=== PATIENT | female | born 1955 | race Caucasian/White ===

== ENCOUNTER 2022-05-12 16:00 | Inpatient (IN) | payer OTHER, SELFPAY ==
[2022-05-12] VITALS (8 sets, daily range): BP systolic 106–143; BP diastolic 48–88; PULSE 85–101; RESP 15–22; TEMP 36–36.8; O2SAT 96–100
--- NOTE | ~2022-05-12 | XR_ITS ---
XR retrograde pyelo w/stent BI 05/12/2022 22:01 Bilateral ureteral stent placement TECHNIQUE: Fluoroscopy used during bilateral ureteral stent placement performed by [Garrett mendoza MD] on 05/12/2022. 246 seconds of fluoroscopy. with 6 fluoroscopic images images captured. FINDINGS: Correlate with procedure note. IMPRESSION: Fluoroscopy used during bilateral ureteral stent placement. Reviewed, dictated and finalized at location A.
--- NOTE | ~2022-05-12 | XR_ITS ---
XR abdomen/kub 1V 05/14/2022 13:40 Indication: Surgical planning. Bilateral kidney stones. Procedure: KUB Comparison: CT dated 05/12/2022 Findings: Bowel gas pattern is nonobstructive. There are bilateral renal stones, largest in the right kidney measuringr 1.9 cm greatest dimension. Bowel gas pattern nonobstructive. There are surgical ch anges of the upper abdomen. There is lumbar spondylosis with levoscoliosis. Impression: 1: Bilateral nephrolithiasis. Reviewed, dictated and finalized at location A. Impression: 1: Bilateral nephrolithiasis.
--- NOTE | ~2022-05-12 | CT_ITS ---
EXAMINATION: CT abdomen pelvis wo con DATE: 05/12/2022 18:21 INDICATION: Left abdominal pain TECHNIQUE: Computed tomography (CT) of the abdomen and pelvis was performed without intravenous contr ast. Automated exposure control and iterative reconstruction technique were employed. The dose-length product was 1305.31 mGy-cm. COMPARISON: None. FINDINGS: Lower thorax: Bibasilar scar/atelectasis Liver: Enlarged Biliary/Gallbladder: Gallbladder is absent. No bile duct dilation. Pancreas: No mass or duct dilation. Spleen: Normal. Adrenals:No mass. Kidneys: 2.4 x 1.5 cm right and 1.3 x 0.9 cm left renal pelvic stones. Bilateral moderate caliectasis , slightly worse in the left. Bilateral perinephric stranding, worse in the left. Bilateral nonobstru cting punctate calculi. Nonobstructing 10 mm right inferior pole stone. GI tract: Prior gastric surgery. Uncomplicated small bowel anastomosis. No small or large bowel dilat ion. Normal appendix. Mesentery/Peritoneum: No ascites, mass, or free air. Retroperitoneum: No mass. Enlarged left periaortic lymph nodes at the level of the left kidney. Ather osclerotic abdominal aortic and/or arterial calcifications. Pelvis: 3.2 cm simple appearing right ovarian cyst. Small ureterocele. Soft Tissues: Wide mouthed large midline supraumbilical ventral hernia containing loops of nonobstruc eduardo large and small bowel. Bones: No acute osseous finding. IMPRESSION: Bilateral large renal pelvic stones causing mild left and moderate right obstructive uropathy. Left p eriaortic lymphadenopathy. 3.2 simple appearing right ovarian cyst, recommend nonemergent outpatient pelvic ultrasound for further characterization and follow-up. Reviewed, dictated and finalized at location K. IMPRESSION: Bilateral large renal pelvic stones causing mild left and moderate right obstru ctive uropathy. Left periaortic lymphadenopathy. 3.2 simple appearing right ova eliseo cyst, recommend nonemergent outpatient pelvic ultrasound for further syeda cterization and follow-up.
--- NOTE | 2022-05-12 16:49 | ED.ABDPAIN ---
HPI - Abdominal Pain General Chief Complaint: Abdominal Pain Stated Complaint: abdominal pain, nausea/pain/diarrhea Time Seen by Provider: 05/12/22 16:49 Source: patient, family and RN notes reviewed Mode of arrival: ambulatory Limitations: no limitations History of Present Illness HPI narrative: A 67 years old white female came to the emergency room by private car complaining of nausea, vomiting or diarrhea for the last 5 main complaint is nausea. Patient is fully vaccinated for COVID-19, denies COVID exposure. History of PCOS, hypertension, multiple abdominal surgeries secondary to herniaS, and cholecystectomy Related Data Allergies Allergy/AdvReac Type Severity Reaction Status Date / Time iohexol Allergy Unknown Verified 05/12/22 17:09 [From contrast - CT, X-RAY] latex Allergy Hives Verified 05/12/22 17:09 lavender (Lavandula Allergy Difficulty Verified 05/12/22 17:09 angustifolia) Breathing meperidine [From Demerol] Allergy Hallucinati Verified 05/12/22 17:09 ng methocarbamol [From Robaxin] Allergy Hallucinati Verified 05/12/22 17:09 ng naproxen Allergy Abdominal Verified 05/12/22 17:09 Pain warfarin [From Coumadin] Allergy Hives Verified 05/12/22 17:09 Review of Systems Review of Systems: All systems reviewed & are unremarkable except as noted in HPI and below Exam Narrative: General appearance: Well-developed, well-nourished Skin: Normal color Head: Normocephalic, nontraumatic Eyes: Clear conjunctiva ENT: Oropharynx normal, ears normal, nose normal Neck: Supple, nontender Chest and respiratory: Airway patent, no respiratory distress, no accessory muscle use Heart: Regular rate/rhythm Abdomen: Soft, nontender, no organomegaly, quiet bowel sounds Vascular: Normal peripheral pulses, normal capillary refill. 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 is normal as tested, no gross motor deficit Course Consultations Consultation #1: DR YORK Admit to hospitalist, n.p.o., Date: 05/12/22 Time: 19:24 Vital Signs Vital signs: Vital Signs Temperature 36.8 C 05/12/22 16:12 Pulse Rate 97 05/12/22 16:12 Respiratory Rate 17 05/12/22 16:12 Blood Pressure 126/55 L 05/12/22 16:12 Pulse Oximetry 96 05/12/22 16:12 Oxygen Delivery Room Air 05/12/22 16:12 Temperature 36.8 C 05/12/22 16:12 Pulse Rate 97 05/12/22 16:12 Respiratory Rate 17 05/12/22 16:12 Blood Pressure 126/55 L 05/12/22 16:12 Pulse Oximetry 96 05/12/22 16:12 Oxygen Delivery Room Air 05/12/22 16:12 MDM - Abdominal Pain Lab Data Result diagrams: 05/12/22 17:16 05/12/22 17:17 Labs: Lab Results 05/12/22 05/12/22 05/12/22 Range/Units 17:16 17:17 17:17 WBC 8.0 (4.5-10.0) K/mm3 RBC 4.94 (4.2-5.4) M/mm3 Hgb 13.0 (12.0-15.0) g/dL Hct 39.5 (37.0-47.0) % MCV 80.0 (80-100) fl MCH 26.3 (26-34) pg MCHC 32.9 (32-36) g/dl RDW 14.2 (11.5-14.5) % Plt Count 215 (150-375) k/mm3 MPV 11.9 H (7.4-10.4) fl Immature Gran % (Auto) 0.4 (0-0.5) % Neut % (Auto) 72.2 (45.5-73.1) % Lymph % (Auto) 16.2 L (18.3-44.2) % [place] % (Auto) 10.2 H (2.6-8.5) % Eos % (Auto) 0.5 (0-4.4) % Baso % (Auto) 0.5 (0.2-1.2) % Lymph # (Auto) 1.30 (0.9-3.2) K/mm3 [place] # (Auto) 0.8 H (0.1-0.6) K/mm3 Eos # (Auto) 0.0 (0-0.3) K/mm3 Baso # (Auto) 0.0 (0.0-0.1) K/mm3 Abs Immat Gran (auto) 0.03 (0.00-0.031) K/mm3 Absolute Neuts (auto) 5.8 (1.3-6.7) K/mm3 Absolute Nucleated RBC 0.0 (0.0-0.012) K/mm3 Nucleated RBC % 0.0 (0.0-0.2) % Sodium 136 L (1
[2022-05-12] MEDS: SODIUM CHLORIDE 0.9% IV 1,000 ML 999 ML IV CONT ×2 (17:03→19:30)
[2022-05-12] MEDS: HYDROmorphone HCL INJ (*CRX) 1 MG/ML SYR 0.5 MG IV PUSH ×2 (17:03→23:53)
[2022-05-12] MEDS: ONDANSETRON INJ 4 MG/2 ML VIAL IV PUSH (17:04)
[2022-05-12 17:37] LABS: Basophils Percent Auto 0.5 % (0.2-1.2); Eosinophils Percent Auto 0.5 % (0-4.4); Hematocrit 39.5 % (37.0-47.0); Immature Granulocyte Absolute 0.03 K/mm3 (0.00-0.031); Immature Granulocyte Percent A 0.4 % (0-0.5); Lymphocytes Percent Auto 16.2 % (18.3-44.2); Mean Corpuscular HGB Conc 32.9 g/dl (32-36); Mean Corpuscular Hemoglobin 26.3 pg (26-34); Mean Platelet Volume 11.9 fl (7.4-10.4); Monocytes Absolute Auto 0.8 K/mm3 (0.1-0.6); Monocytes Percent Auto 10.2 % (2.6-8.5); Neutrophils Absolute Auto 5.8 K/mm3 (1.3-6.7); Neutrophils Percent Auto 72.2 % (45.5-73.1); Platelet Count Result 215 k/mm3 (150-375); Red Blood Count 4.94 M/mm3 (4.2-5.4); Red Cell Distribution Width 14.2 % (11.5-14.5)
[2022-05-12 17:38] LABS: Appearance Urine Clear (Clear); Bilirubin Urine 1+ (Negative); Blood Urine 1+ (Negative); Color Urine Yellow (Yellow); Glucose Urine UA Negative (Negative); Ketones Urine 1+ mg/dL (Negative); Leukocyte Esterase Ur 3+ LEU/UL (Negative); Nitrate Urine Positive (Negative); Protein Urine 2+ mg/dL (Negative); Specific Grav Ur 1.015 (1.001-1.035); pH Urine 6.5 (5.0-9.0)
[2022-05-12 17:41] LABS: Alanine Aminotransferase 29 U/L (6-35); Albumin Level 4.2 g/dL (3.5-5.1); Alkaline Phosphatase 150 U/L (38-126); Anion Gap 12 mmol/L (8-16); Aspartate Amino Transferase 38 U/L (14-36); Bilirubin,Total 1.5 mg/dL (0.2-1.3); Blood Urea Nitrogen 18 mg/dL (7-17); Calcium 9.1 mg/dL (8.4-10.2); Carbon Dioxide 27 mmol/L (22-30); Chloride 97 mmol/L (98-107); Estimated CRCL calculation 38 ml/min; Estimated Glomerular Filt Rate 30; Glucose 125 mg/dL (65-110); Lipase 165 U/L (23-300); Potassium 3.3 mmol/L (3.4-5.0); Sodium 136 mmol/L (137-145)
[2022-05-12 17:51] LABS: Bacteria Urine 2+ /hpf; Mucus Urine Moderate /lpf; Squamous Epithelial Cell Urine Few /hpf (Few); WBC Urine >75 /hpf
[2022-05-12 17:53] LABS: Add Urine Microscopic? YES
--- NOTE | 2022-05-12 19:51 | PM.IMHP ---
H&P: HPI History of Present Illness Date/Time: 05/12/22 19:51 Chief Complaint: Abdominal pain, nausea and vomiting Narrative: 59-year-old female with a past medical history of obesity, distant history kidney stones, essential hypertension, chronic pain, depression, GERD who presented to the ER from home with nausea vomiting and abdominal pain for 6 days. The patient reports the pain initially started in her left lower quadrant and was colicky in nature. She did not notice any eliciting or relieving factors. It was associated with significant nausea and vomiting. Emesis was nonbilious without evidence of blood. She has had associated fever up to 101 with associated rigors and chills. She took ibuprofen without relief in her symptoms. She was able to keep down small amounts of popsicles and clear liquids. She stated on the 1st 2 days of her symptoms she did have some loose stools that were brown and nonbloody. She has not had any stools in the last 4 days. She also noticed some lower back pain but she attributed this to her chronic DJD. In hindsight, she thinks that her pain may have been worsened her low back than at baseline. She denies any dysuria. She has chronic urinary frequency due to a known history of a cystocele for the last 30 years. In the ER CT scan demonstrated bilateral obstructive nephrolithiasis with associated hydronephrosis and UA was consistent with urinary tract infection. She does report a distant history kidney stones greater than 40 years ago that she was able to pass on her own. She reports that her pain was a 9/10 in intensity at its worst. Her pain is down to 5/10 in intensity after cystoscopy with bilateral stent placement. During the procedure the patient was noted to have frankly purulent urine from the left kidney. Urine from the right kidney appeared clear. Both ureters were obstructed by stones. Patient maintained blood pressures throughout procedure. Postprocedure patient did spike a fever to 100.4. The patient is mildly tachycardic. Her nausea has improved. She has had no further vomiting. Patient is having rigors at the time of my exam. The patient has a large neck circumference crowded posterior oropharynx. She does snore but has never had a sleep study. She states that she could not tolerate a CPAP even if she did have sleep apnea. Review of Systems Review of Systems: 12 systems were reviewed with pertinent positives and negatives per HPI. Except as documented in the HPI, all other systems were reviewed and are negative. [facility] Past Medical History Medical History (Updated 05/13/22 @ 01:13 by Julia Jessica DO) B12 deficiency Chronic pain Cystocele with prolapse DJD (degenerative joint disease), lumbar DVT of lower extremity, bilateral At 29 years old Essential hypertension GERD (gastroesophageal reflux disease) Morbid obesity with BMI of 40.0-44.9, adult Multiple thyroid nodules PCOS (polycystic ovarian syndrome) Primary stress urinary incontinence Venous stasis dermatitis of right lower extremity Surgical History Surgical History (Updated 05/13/22 @ 00:59 by Julia Jessica DO) History of esophagogastroduodenoscopy (EGD) History of gastric bypass 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 due to recurrent electrolyte abnormality History of hernia repair Incisional hernia repair x3 History of incision and drainage Right anterior alarcon abscess following trauma History of tonsillectomy Hx of cholecystectomy Incarcerated incisional hernia With resultant bowel per friend bowel resection 2008 Family History Family History (Updated 05/13/22 @ 00:24 by Renetta Jhaveri RN) Sibling Non-Hodgkin lymphoma Mother Breast cancer Alzheimer disease Grandparent Diabetes mellitus Congestive heart failure Grandparent Diabetes mellitus Alzheimer disease Congestive heart failure Other Tanner's disease niece
--- NOTE | 2022-05-12 20:03 | PC.NURSE ---
HOUSE SUP ASKING FOR THE PT TO STAY IN ED UNTIL SEEN BY UROLOGIST. PT TO GO TO OR
--- NOTE | 2022-05-12 20:07 | WPDANESEPP ---
Anes - Eval Pre Procedure Date/Time: 05/12/22 20:07 Pre Op Diagnosis: Obstructive Uropathy,Pyelonephritis,Dehydration, Patient Data Age: 67 Gender: F Height: 1.68 m Weight: 122 kg Last Vital Signs Temp 36.8 C 05/12/22 16:12 Pulse 90 05/12/22 19:33 Resp 18 05/12/22 19:33 BP 136/88 05/12/22 19:33 Pulse Ox 98 05/12/22 19:33 O2 Del Method Room Air 05/12/22 16:12 Allergies Allergy/AdvReac Type Severity Reaction Status Date / Time iohexol Allergy Unknown Verified 05/12/22 17:09 [From contrast - CT, X-RAY] latex Allergy Hives Verified 05/12/22 17:09 lavender (Lavandula Allergy Difficulty Verified 05/12/22 17:09 angustifolia) Breathing meperidine [From Demerol] Allergy Hallucinati Verified 05/12/22 17:09 ng methocarbamol [From Robaxin] Allergy Hallucinati Verified 05/12/22 17:09 ng naproxen Allergy Abdominal Verified 05/12/22 17:09 Pain warfarin [From Coumadin] Allergy Hives Verified 05/12/22 17:09 Laboratory Tests 05/12/22 05/12/22 05/12/22 17:16 17:17 17:17 WBC 8.0 K/mm3 K/mm3 (4.5-10.0) RBC 4.94 M/mm3 M/mm3 (4.2-5.4) Hgb 13.0 g/dL g/dL (12.0-15.0) Hct 39.5 % % (37.0-47.0) MCV 80.0 fl fl (80-100) MCH 26.3 pg pg (26-34) MCHC 32.9 g/dl g/dl (32-36) RDW 14.2 % % (11.5-14.5) Plt Count 215 k/mm3 k/mm3 (150-375) MPV 11.9 fl H fl (7.4-10.4) Immature Gran % (Auto) 0.4 % % (0-0.5) Neut % (Auto) 72.2 % % (45.5-73.1) Lymph % (Auto) 16.2 % L % (18.3-44.2) [place] % (Auto) 10.2 % H % (2.6-8.5) Eos % (Auto) 0.5 % % (0-4.4) Baso % (Auto) 0.5 % % (0.2-1.2) Lymph # (Auto) 1.30 K/mm3 K/mm3 (0.9-3.2) [place] # (Auto) 0.8 K/mm3 H K/mm3 (0.1-0.6) Eos # (Auto) 0.0 K/mm3 K/mm3 (0-0.3) Baso # (Auto) 0.0 K/mm3 K/mm3 (0.0-0.1) Abs Immat Gran (auto) 0.03 K/mm3 K/mm3 (0.00-0.031) Absolute Neuts (auto) 5.8 K/mm3 K/mm3 (1.3-6.7) Absolute Nucleated RBC 0.0 K/mm3 K/mm3 (0.0-0.012) Nucleated RBC % 0.0 % % (0.0-0.2) Sodium 136 mmol/L L mmol/L (137-145) Potassium 3.3 mmol/L L mmol/L (3.4-5.0) Chloride 97 mmol/L L mmol/L (98-107) Carbon Dioxide 27 mmol/L mmol/L (22-30) Anion Gap 12 mmol/L mmol/L (8-16) BUN 18 mg/dL H mg/dL (7-17) Creatinine 1.70 mg/dL H mg/dL (0.7-1.0) Estim Creat Clear Calc 38 ml/min ml/min Estimated GFR 30 L (59 - ) Glucose 125 mg/dL H mg/dL (65-110) Calcium 9.1 mg/dL mg/dL (8.4-10.2) Total Bilirubin 1.5 mg/dL H mg/dL (0.2-1.3) AST 38 U/L H U/L (14-36) ALT 29 U/L U/L (6-35) Alkaline Phosphatase 150 U/L H U/L (38-126) Total Protein 9.0 g/dL H g/dL (6.3-8.2) Albumin 4.2 g/dL g/dL (3.5-5.1) Lipase 165 U/L U/L (23-300) Urine Color Yellow (Yellow) Urine Appearance Clear (Clear) Urine pH 6.5 (5.0-9.0) Ur Specific [place] 1.015 (1.001-1.035) Urine Protein 2+ mg/dL H mg/dL (Negative) Urine Glucose (UA) Negative mg/dL mg/dL (Negative) Urine Ketones 1+ mg/dL H mg/dL (Negative) Ur Blood (Man) 1+ H (Negative) Urine Nitrate Positive H (Negative) Urine Bilirubin 1+ H (Negative) Urine Urobilinogen 4.0 mg/dL H mg/dL (<2.0) Leukocyte Esterase Rfl 3+ ELVER/UL H ELVER/UL (Negative) Urine RBC 3-5 /hpf H /hpf (0-2) Urine WBC >75 /hpf H /hpf Ur Squamous Epith Cells Few /hpf /hpf (Few) Urine Bacteria 2+ /hpf H /hpf Urine Mucus Moderate /lpf H /lpf Patient hx anesthesia problems: none Family hx anesthesia problems:
--- NOTE | 2022-05-12 20:46 | WPDURCON ---
Assessment and Plan Assessment and plan (1) Acute kidney injury: Code(s): N17.9 - Acute kidney failure, unspecified Status: Acute (2) Urinary tract infection: Code(s): N39.0 - Urinary tract infection, site not specified Status: Acute (3) Acute bilateral obstructive uropathy: Code(s): N13.9 - Obstructive and reflux uropathy, unspecified Status: Acute (4) Bilateral kidney stones: Code(s): N20.0 - Calculus of kidney Status: Acute Plan bilateral renal pelvis UPJ stones with b/l hydro and elevated Cr and concern for UTI/Pyelo -plan for cysto, B/L RPG, b/l stent placement -risks, benefits, alternatives, nature of procedure and complication reviewed. -risks including but not limited to bleeding, infection, trauma to surrounding structures damage to urinary tract inability to place stents and need for PCN tubes by IR, side effects(urgency frequency stent bother)and temporary nature of stents emphasized, need for multiple procedures reviewed given stone burden further more we discussed anesthetic and positioning complications of CA, stroke blod clots, and disability were reviewed, she voiced understanding and is agreeable to proceed -agree with urine cultures and IV broad spectrum abx pending cultures -stone management when infection cleared Urology Consult Note HPI Date Seen: 05/12/22 Requesting Physician: Julia Jessica DO Primary Care Provider: PHYSICIAN NOT ON STAFF Consult Narrative Narrative: Ally Ayala is a 67 year old female with 1 week history of flank pain, came to ER today for nausea vomitting and left sided flank pain. No prior history of stones. Denies chills endorsed low grade fevers over the past 1 week. No gross hematuria or dysuria. Had CT with bilateral renal pelvis stones, ua with + leuks, nitrite and blood. risk factor for stones include Hx of bowel surgery . Denies recurrent UTI. [facility] Past Medical History Medical History Essential hypertension Morbid obesity with BMI of 40.0-44.9, adult PCOS (polycystic ovarian syndrome) Surgical History Surgical History History of hernia repair Hx of cholecystectomy Meds Home Medications and Allergies Allergies Allergy/AdvReac Type Severity Reaction Status Date / Time iohexol Allergy Unknown Verified 05/12/22 17:09 [From contrast - CT, X-RAY] latex Allergy Hives Verified 05/12/22 17:09 lavender (Lavandula Allergy Difficulty Verified 05/12/22 17:09 angustifolia) Breathing meperidine [From Demerol] Allergy Hallucinati Verified 05/12/22 17:09 ng methocarbamol [From Robaxin] Allergy Hallucinati Verified 05/12/22 17:09 ng naproxen Allergy Abdominal Verified 05/12/22 17:09 Pain warfarin [From Coumadin] Allergy Hives Verified 05/12/22 17:09 Vital Signs Vital Signs - 24 hr 05/12/22 16:12 05/12/22 19:33 Temperature 36.8 C Pulse Rate 97 90 Respiratory Rate 17 18 Blood Pressure 126/55 L 136/88 Pulse Oximetry 96 98 Oxygen Delivery Room Air Exam Const: General: comfortable and no acute distress Eyes: General: appearance normal, both eyes and all related structures Sclera: sclerae normal Neck: Neck: supple Resp: Effort & Inspection: normal respiratory effort Cardio: Rate: regular rate Rhythm: regular rhythm GI: GI Palp: Yes Soft to palpation, No Tenderness to palpation present (GI), No Guarding due to palpation present (GI) and Yes Hernia present : Other: mild b./ CVA TTP Skin: General skin exam: normal color and no rashes or lesions noted Neuro: Speech: normal speech Extrem: General: normal to inspection Psych: Speech and movement: Normal speech and movement present Affect: normal affect Results Labs CBC & Chem 7: 05/12/22 17:16 05/12/22 17:17 Labs: Short CBC 05/12/22 Range/
--- NOTE | 2022-05-12 21:00 | WPDHPUPDATE1 ---
History and Physical Update Update Date/Time: 05/12/22 21:00 History and Physical has been reviewed, including an updated exam of the patient. There are NO changes in the patient's condition. Risks, benefits, and alternatives have been discussed and questions answered. Patient agrees to proceed with procedure.
[2022-05-12] MEDS: LACTATED RINGERS 1,000 ML 30 ML IV CONT (21:05)
--- NOTE | 2022-05-12 21:10 | P.PNAN_ITS ---
Anes - Eval Final PreProcedure Day of Procedure 05/12/22 21:10 Patient weight: morbidly obese Heart: regular rate and rhythm Lungs: clear to auscultation Airway: Mallampati scale class II Neurological: alert and oriented Last oral intake: >/= 8 hours ASA classification: III Emergent: yes Anesthetic plan: proceed Anesthesia type and monitoring: general LMA and standard monitoring Results Review: All pre-operative results and documents have been reviewed as part of the pre- operative evaluation. Informed Consent: The patient's anesthetic plan and its attendant risks and benefits were discussed with the patient/family/POA. Questions were solicited and answers provided to the satisfaction of the patient/family/POA.
--- NOTE | 2022-05-12 21:18 | SUR.OPER ---
All jewelry and glasses removed by patient in ED and placed in labeled specimen cup in patient's personal belongings bag. Labeled personal belongings bag transported with patient to perioperative area
--- NOTE | 2022-05-12 21:48 | P.OP_ITS ---
Procedure Note - Detailed Date of Procedure 05/12/22 Pre-op Diagnosis Obstructive Uropathy,Pyelonephritis,Dehydration, Post-op Diagnosis Same Procedure Performed cystoscopy bilateral retrograde pyelograms, bilateral ureteral stent placement Surgeon Garrett Rico MD Anesthesia General Indications bilateral ureteral/UPJ/renal pelvis stones, hydroneprhosis Findings pyonephrosis left kidney massive cystocele Description of Procedure Patient had received informed consent, preprocedure antibiotics were given in ER, she received G LMA anesthesia. she was prepped and draped in the standard surgical fashion in dorsal lithotomy position with Betadine to the genitalia. care was taken to not hyperflex or hyperextend any extremity, all bony prominences thoroughly padded. After appropriate surgical time-out was per formed, a 22 Fr cystoscope was inserted into the bladder, she has a massive cystocele , the ureteral orifices were obscured given cystitis and massive cystocele, this added an additional 30 min to procedure. we eventually found the left uo and intubated it with a Bentson wire, 5 Fr open ended catheter was inserted up to the UPJ, RPG showed stone in the UPJ, Bentson wire was unable to pass the stone, a angle tipped glide wire was used to navigate past stone to upper pole, 5 Fr open ended passed over this to obtain urine, urine was grossly purulent, the stone was pushed cephalad, the Bentson wire was replaced and a 4.8 x 28 cm double J tent was placed, good curl int he renal pelvis and good curl in the bladder, purulent urine was draining. We then intubated the right ureter with Bentson wire. 5 Fr open ended was passed, RPG was performed which showed massive stone at UPJ, i was able to navigate an angle tipped glide wire into the upper pole past the stone, 5 Fr open ended passed over this, urine appeared clear form this kidney. Bentson wire was replaced and a 4.8 x 28 cm double J stent was placed. good curl seen both fluoroscopically and endoscopically in the bladder. All instruments and wires removed. 16 Fr silicone elizabeth was placed 10 cc in balloon with good return of urine. Pt awoken and taken to recovery in stable condition with plans for IMCU admission given pyonephrosis, pt and family informed, all ? answered Implants bilateral 4.8x28cm ureter stents Estimated Blood Loss 0 Drains Yes (16 Fr elizabeth) Pathology Other (urine for cultrue left kidney) Condition Stable (to IMCU given pyonephrosis) Disposition ICU
--- NOTE | 2022-05-12 23:00 | PC.NURSE ---
This patient, Ally Ayala, was admitted to IMU Room 209-01, received from recovery at 2259. Patient/family oriented to hospital policies and general routines including ID bracelet, bed and alarms, visiting hours, pain management, procedures, bathroom and other care routines, personal items, smoking policy, room service/diet, and visiting hours. Information on how to activate the Rapid Response Team has been discussed. Patient/Family are encouraged to report perceived risks to care and to ask questions if they do not understand what they are told or what they should do.
[2022-05-12] MEDS: SODIUM CHLORIDE 0.9% IV 1,000 ML 125 ML IV CONT (23:14)
[2022-05-13] VITALS (16 sets, daily range): BP systolic 106–151; BP diastolic 50–78; PULSE 72–102; RESP 16–20; TEMP 36.2–38.1; O2SAT 97–100; BMI 40.3
[2022-05-13] MEDS: ONDANSETRON INJ 4 MG/2 ML VIAL IV PUSH (00:16)
[2022-05-13] MEDS: POTASSIUM CHLORIDE 20 MEQ PACKET (FOR LIQUID) 40 MEQ PO (00:59)
[2022-05-13] MEDS: ACETAMINOPHEN 325 MG TABLET 650 MG PO ×2 (01:18→15:25)
[2022-05-13] MEDS: POTASSIUM CHLORIDE INJ 40 MEQ in SODIUM CHLORIDE 0.9% IV 500 ML 130 MEQ IVPB (01:44)
[2022-05-13 04:41] LABS: Basophils Absolute Auto 0.1 K/mm3 (0.0-0.1); Basophils Percent Auto 0.7 % (0.2-1.2); Eosinophils Percent Auto 0.2 % (0-4.4); Hematocrit 32.5 % (37.0-47.0); Hemoglobin 10.2 g/dL (12.0-15.0); Immature Granulocyte Absolute 0.05 K/mm3 (0.00-0.031); Immature Granulocyte Percent A 0.6 % (0-0.5); Lymphocytes Absolute Auto 0.97 K/mm3 (0.9-3.2); Mean Corpuscular HGB Conc 31.4 g/dl (32-36); Mean Corpuscular Hemoglobin 25.4 pg (26-34); Mean Corpuscular Volume 80.8 fl (80-100); Monocytes Absolute Auto 0.8 K/mm3 (0.1-0.6); Monocytes Percent Auto 10.1 % (2.6-8.5); Neutrophils Absolute Auto 6.2 K/mm3 (1.3-6.7); Neutrophils Percent Auto 76.4 % (45.5-73.1); Platelet Count Result 189 k/mm3 (150-375); Red Blood Count 4.02 M/mm3 (4.2-5.4); Red Cell Distribution Width 14.1 % (11.5-14.5); White Blood Count 8.1 K/mm3 (4.5-10.0)
[2022-05-13 04:54] LABS: Anion Gap 7 mmol/L (8-16); Blood Urea Nitrogen 17 mg/dL (7-17); Carbon Dioxide 24 mmol/L (22-30); Chloride 104 mmol/L (98-107); Estimated CRCL calculation 41 ml/min; Estimated Glomerular Filt Rate 35; Glucose 124 mg/dL (65-110); Potassium 3.6 mmol/L (3.4-5.0); Sodium 135 mmol/L (137-145)
[2022-05-13] MEDS: CYCLOBENZAPRINE HCL 10 MG TABLET PO ×2 (08:54→18:06)
[2022-05-13] MEDS: lisinopriL 10 MG TABLET PO (08:54)
[2022-05-13] MEDS: TOPIRAMATE 100 MG TABLET PO ×2 (08:54→18:03)
[2022-05-13] MEDS: FLUoxetine HCL 20 MG CAPSULE 40 MG PO (08:55)
[2022-05-13] MEDS: buPROPion HCL SR (12 HR) 150 MG TAB PO ×2 (08:55→18:04)
[2022-05-13] MEDS: PANTOPRAZOLE 40 MG TABLET PO (08:55)
--- NOTE | 2022-05-13 11:50 | WPDUROPN2 ---
Progress Note: A&P Assessment and Plan (1) Sepsis: Qualifiers: Sepsis type: sepsis due to unspecified organism Sepsis acute organ dysfunction status: with acute organ dysfunction Severe sepsis acute organ dysfunction type: acute renal failure Acute renal failure type: unspecified Severe sepsis shock status: without septic shock Qualified Code(s): A41.9 - Sepsis, unspecified organism; R65.20 - Severe sepsis without septic shock; N17.9 - Acute kidney failure, unspecified Code(s): A41.9 - Sepsis, unspecified organism Status: Acute (2) Hydronephrosis with renal and ureteral calculous obstruction: Code(s): N13.2 - Hydronephrosis with renal and ureteral calculous obstruction Status: Acute Assessment and Plan: POD #1 s/p cysto b/l RPG b/L stent placement -clinically improving, cultures pending -maintain elizabeth for another 24 hours given pyonephrosis from left kidney -continue broad spectrum IV abx, await cultures which are pending (3) Pyelonephritis: Code(s): N12 - Tubulo-interstitial nephritis, not specified as acute or chronic Status: Acute (4) Acute kidney injury: Code(s): N17.9 - Acute kidney failure, unspecified Status: Acute (5) Bilateral kidney stones: Code(s): N20.0 - Calculus of kidney Status: Acute Assessment and Plan: will need to be treated after UTI has been treated (6) Cystocele with prolapse: Code(s): N81.4 - Uterovaginal prolapse, unspecified Status: Acute Assessment and Plan: will need management after stones Subjective Subjective Date/Time Seen: 05/13/22 11:50 NAEO. Feels better tolerating elizabeth, urine clearing, less purulent. Pain better. No CP/SOB Review of Systems Constitutional: Constitutional: Reports no additional constitutional complaints Eyes: Eyes: Reports no additional eye complaints ENT: Reports system reviewed and no additional complaints, except as documented Cardiovascular: Cardiovascular: Reports no additional cardiovascular complaints Respiratory: Respiratory: Reports no additional respiratory complaints Gastrointestinal: Gastrointestinal: Reports no additional gastrointestinal complaints Genitourinary: Genitourinary: Reports no additional female genitourinary complaints Musculoskeletal: Musculoskeletal: Reports no additional musculoskeletal complaints Neurologic: Reports system reviewed and no additional complaints, except as documented Exam Const: General: comfortable and no acute distress Eyes: General: appearance normal, both eyes and all related structures Sclera: sclerae normal Neck: Neck: supple Resp: Effort & Inspection: normal respiratory effort Cardio: Rate: regular rate Rhythm: regular rhythm GI: Inspection: non-distended GI Palp: Yes Soft to palpation, No Tenderness to palpation present (GI) and No Guarding due to palpation present (GI) Urinary Catheter: Urinary Catheter: patent and draining and urine cloudy Skin: General skin exam: normal color Extrem: General: normal to inspection and no edema Psych: Mental Status: mental status grossly normal Objective Data Vital Signs Vital Signs: Vital Signs - 24 hr 05/12/22 16:12 05/12/22 19:33 05/12/22 21:55 Temperature 36.8 C 36.0 C L Pulse Rate 97 90 88 Respiratory Rate 17 18 22 H Blood Pressure 126/55 L 136/88 106/61 Pulse Oximetry 96 98 96 Oxygen Delivery Room Air Simple Face Mask Oxygen Flow Rate 8 05/12/22 22:10 05/12/22 22:25 05/12/22 22:40 Temperature Pulse Rate 85 90 86 Respiratory Rate 15 20 22 H Blood Pressure 129/76 137/73 132/77 Pulse Oximetry 97 96 98 Oxygen Delivery Room Air Room Air Room Air Oxygen Flow Rate 05/12/22 23:10 05/13/22 00:15 05/13/22 01:18 Temperature 36.4 C 38.1 C H 38.1 C H Pulse Rate 101 H Respiratory Rate 16 Blood Pressure 143/48 H Pulse Oximetry 100 Oxygen Delivery Oxygen Flow Rate 05/12/22 23:00 05/12/22 2
[2022-05-13] MEDS: SODIUM CHLORIDE 0.9% IV 1,000 ML 125 ML IV CONT ×3 (13:06→20:57)
[2022-05-13] MEDS: HYDROmorphone HCL INJ (*CRX) 1 MG/ML SYR 0.5 MG IV PUSH (15:24)
--- NOTE | 2022-05-13 16:14 | PM.IMPN ---
Progress Note: A&P Assessment and Plan (1) Sepsis: Qualifiers: Sepsis type: sepsis due to unspecified organism Sepsis acute organ dysfunction status: with acute organ dysfunction Severe sepsis acute organ dysfunction type: acute renal failure Acute renal failure type: unspecified Severe sepsis shock status: without septic shock Qualified Code(s): A41.9 - Sepsis, unspecified organism; R65.20 - Severe sepsis without septic shock; N17.9 - Acute kidney failure, unspecified Code(s): A41.9 - Sepsis, unspecified organism Status: Acute Assessment and Plan: Continue Rocephin, blood amd urine cultures pending (2) Pyelonephritis: Code(s): N12 - Tubulo-interstitial nephritis, not specified as acute or chronic Status: Acute Assessment and Plan: Resolving after stent placement (3) Bilateral kidney stones: Code(s): N20.0 - Calculus of kidney Status: Acute Assessment and Plan: Causing bilateral obstructive uropathy. Patient is status post cystoscopy with bilateral stent placement. Urology is managing. Will monitor urine output closely. (4) Acute kidney injury: Code(s): N17.9 - Acute kidney failure, unspecified Status: Acute Assessment and Plan: Resolving, continue current management (5) Acute hypokalemia: Code(s): E87.6 - Hypokalemia Status: Acute Assessment and Plan: Resolved Plan DVT prophylaxis with SCDs GI prophylaxis not indicated Code status full code Subjective Date/time seen: 05/13/22 16:14 Interval history: Patient states she feels much better than when she came in. No overnight events noted. No chest pain or shortness of breath. No nausea, vomiting or diarrhea. No fevers or chills. Review of Systems Review of Systems: 12 point review of systems was assessed and was negative except as noted in the HPI Exam Narrative: General: No acute distress, alert and oriented per baseline HEENT: Atraumatic, normocephalic, mucous membranes moist CV: Regular rate and rhythm, S1, S2 Lungs: Clear to auscultation bilaterally, no rales or crackles noted, no wheezes, good air entry Abdomen: Soft, nontender, nondistended Extremities: Normal to inspection Skin: No rashes noted, no lesions or wounds seen Psych: Euthymic, normal affect Objective Data Vital Signs Vital Signs: Vital Signs - 24 hr 05/12/22 19:33 05/12/22 21:55 05/12/22 22:10 Temperature 96.8 F L Pulse Rate 90 88 85 Respiratory Rate 18 22 H 15 Blood Pressure 136/88 106/61 129/76 Pulse Oximetry 98 96 97 Oxygen Delivery Simple Face Mask Room Air Oxygen Flow Rate 8 05/12/22 22:25 05/12/22 22:40 05/12/22 23:10 Temperature 97.6 F Pulse Rate 90 86 101 H Respiratory Rate 20 22 H 16 Blood Pressure 137/73 132/77 143/48 H Pulse Oximetry 96 98 100 Oxygen Delivery Room Air Room Air Oxygen Flow Rate 05/13/22 00:15 05/13/22 01:18 05/12/22 23:00 Temperature 100.5 F H 100.5 F H Pulse Rate Respiratory Rate Blood Pressure Pulse Oximetry Oxygen Delivery Room Air Oxygen Flow Rate 05/12/22 23:09 05/13/22 02:00 05/13/22 00:00 Temperature Pulse Rate 98 102 H 97 Respiratory Rate Blood Pressure Pulse Oximetry Oxygen Delivery Oxygen Flow Rate 05/13/22 04:00 05/13/22 04:00 05/13/22 05:56 Temperature Pulse Rate 84 85 Respiratory Rate Blood Pressure Pulse Oximetry Oxygen Delivery Room Air Oxygen Flow Rate 05/13/22 04:00 05/13/22 04:00 05/13/22 08:00 Temperature 97.2 F L 97.2 F L 97.9 F Pulse Rate 100 83 Respiratory Rate 18 16 Blood Pressure 151/78 H 120/57 L Pulse Oximetry 99 97 Oxygen Delivery Oxygen Flow Rate 05/13/22 12:00 Temperature 97.9 F Pulse Rate 84 Respiratory Rate 16 Blood Pressure 117/62 Pulse Oximetry 97 Oxygen Delivery Oxygen Flow Rate Intake/Output Intake/Output: Intake & Output 05/10/22 05/11/22 05/12/22 10
[2022-05-14] VITALS (12 sets, daily range): BP systolic 121–125; BP diastolic 53–71; PULSE 68–96; RESP 20–22; TEMP 36.2–36.4; O2SAT 95–100; BMI 38.9
[2022-05-14] MEDS: SODIUM CHLORIDE 0.9% IV 1,000 ML 125 ML IV CONT (04:51)
[2022-05-14] MEDS: FLUoxetine HCL 20 MG CAPSULE 40 MG PO (09:03)
[2022-05-14] MEDS: TOPIRAMATE 100 MG TABLET PO (09:04)
[2022-05-14] MEDS: buPROPion HCL SR (12 HR) 150 MG TAB PO (09:04)
[2022-05-14] MEDS: HYDROmorphone HCL INJ (*CRX) 1 MG/ML SYR 0.5 MG IV PUSH (09:04)
[2022-05-14] MEDS: CYCLOBENZAPRINE HCL 10 MG TABLET PO (09:04)
[2022-05-14] MEDS: lisinopriL 10 MG TABLET PO (09:04)
[2022-05-14] MEDS: PANTOPRAZOLE 40 MG TABLET PO (09:04)
--- NOTE | 2022-05-14 13:45 | PCNSR ---
On 05/14/22, the student, Aaron Mayorga, provided care and completed [facility] documentation on this patient. I have reviewed the student's documentation and agree with the findings.
--- NOTE | 2022-05-14 14:54 | WPDUROPN2 ---
Progress Note: A&P Assessment and Plan (1) Bilateral kidney stones: Code(s): N20.0 - Calculus of kidney Status: Acute Assessment and Plan: Ok to remove elizabeth catheter. Patient will have an ESWL bilaterally at separate times outpatient after infection has cleared in a few weeks. She will need to f/u next week for a repeat urine cutlure and then we will schedule her for each Left then Right ESWL separately. (2) Pyelonephritis: Code(s): N12 - Tubulo-interstitial nephritis, not specified as acute or chronic Status: Acute Assessment and Plan: Continue IV Ceftriaxone, give culture appropriate oral antibiotics for discharge x 10 days. Ok to discharge home when stable. No further evaluation. Subjective Subjective Date/Time Seen: 05/14/22 14:54 Cystoscopy, bilateral retrograde pyelogram, bilateral stent placement. Patient doing well, tolerating stents, diet and activity. She has her elizabeth in which is draining clear yellow urine. Urine Culture grew E-Coli, blood cultures are still pending. WBC is stable at 8.1 and creatinine is improved at 1.50. She remains afebrile. KUB shows bilateral stents in place and stones visible. Post Op day: 2 Review of Systems Cardiovascular: Cardiovascular: Denies chest pain Respiratory: Respiratory: Reports no additional respiratory complaints Gastrointestinal: Gastrointestinal: Denies abdominal pain, Denies nausea and Denies vomiting Genitourinary: Genitourinary: Denies nocturia, Denies dysuria, Denies pelvic pain, Denies flank pain and Denies urinary urgency Exam Const: General: cooperative Resp: Effort & Inspection: normal respiratory effort Cardio: Rate: regular rate GI: GI Palp: Yes Soft to palpation and Yes Tenderness to palpation present (GI) : General: Yes no CVA tenderness Extrem: Right lower extremity: no edema Left lower extremity: no edema Objective Data Vital Signs Vital Signs: Vital Signs - 24 hr 05/13/22 16:00 05/13/22 16:00 05/13/22 18:00 Temperature 97.9 F Pulse Rate 87 79 88 Respiratory Rate 18 Blood Pressure 106/57 L Pulse Oximetry 97 Oxygen Delivery 05/13/22 16:00 05/13/22 20:13 05/13/22 20:00 Temperature 97.5 F L Pulse Rate 82 77 Respiratory Rate 20 Blood Pressure 121/56 L Pulse Oximetry 97 Oxygen Delivery Room Air 05/13/22 20:00 05/13/22 22:00 05/13/22 23:47 Temperature 97.8 F Pulse Rate 82 77 73 Respiratory Rate 20 20 Blood Pressure 114/50 L Pulse Oximetry 97 100 Oxygen Delivery Room Air 05/13/22 23:47 05/14/22 00:00 05/14/22 00:00 Temperature Pulse Rate 72 72 72 Respiratory Rate 20 Blood Pressure Pulse Oximetry 100 Oxygen Delivery Room Air 05/14/22 02:00 05/14/22 04:00 05/14/22 04:00 Temperature Pulse Rate 68 75 68 Respiratory Rate 20 Blood Pressure Pulse Oximetry 100 Oxygen Delivery Room Air 05/14/22 04:36 05/14/22 07:19 05/14/22 06:00 Temperature 97.6 F 97.3 F L Pulse Rate 74 82 77 Respiratory Rate 20 22 H Blood Pressure 121/53 L 125/54 L Pulse Oximetry 100 97 Oxygen Delivery 05/14/22 08:00 05/14/22 08:00 05/14/22 10:00 Temperature Pulse Rate 77 96 Respiratory Rate Blood Pressure Pulse Oximetry Oxygen Delivery Room Air 05/14/22 11:52 05/14/22 12:00 05/14/22 12:00 Temperature 97.2 F L Pulse Rate 91 83 Respiratory Rate 22 H Blood Pressure 124/71 Pulse Oximetry 99 Oxygen Delivery Room Air Intake/Output Intake/Output: Intake & Output 05/11/22 05/12/22 05/13/22 05/14/22 23:59 23:59 23:59 23:59 Intake Total 3050 6950 1480 Output Total 130 2275 4250 Balance 2925 7080 -0862 Meds/Results Medications: Active Medications Generic Name Dose Route Start Last Admin Trade Name Freq PRN Reason Stop Dose Admin Acetaminophen 650 mg 05/13/22 00:50 05/13/22 15:25 Acetaminophen 325 Mg Tablet PO 650 mg Q4H PRN Administration Mild Pain (1-3
--- NOTE | 2022-05-14 16:09 | PM.DS ---
DS: Admitting Diagnosis Discharge Date May 14, 2022 Admitting Diagnosis Nausea, vomiting, abdominal pain DS: Discharge Diagnosis Discharge Diagnosis (1) Sepsis: Qualifiers: Acute renal failure type: unspecified Sepsis acute organ dysfunction status: with acute organ dysfunction Sepsis type: sepsis due to unspecified organism Severe sepsis acute organ dysfunction type: acute renal failure Severe sepsis shock status: without septic shock Qualified Code(s): A41.9 - Sepsis, unspecified organism; R65.20 - Severe sepsis without septic shock; N17.9 - Acute kidney failure, unspecified Code(s): A41.9 - Sepsis, unspecified organism Status: Acute Assessment and Plan: Continue Rocephin, blood amd urine cultures pending (2) Pyelonephritis: Code(s): N12 - Tubulo-interstitial nephritis, not specified as acute or chronic Status: Acute Assessment and Plan: Resolving after stent placement (3) Bilateral kidney stones: Code(s): N20.0 - Calculus of kidney Status: Acute Assessment and Plan: Causing bilateral obstructive uropathy. Patient is status post cystoscopy with bilateral stent placement. Urology is managing. Will monitor urine output closely. (4) Acute kidney injury: Code(s): N17.9 - Acute kidney failure, unspecified Status: Acute Assessment and Plan: Resolving, continue current management (5) Acute hypokalemia: Code(s): E87.6 - Hypokalemia Status: Acute Assessment and Plan: Resolved Plan DVT prophylaxis with SCDs GI prophylaxis not indicated Code status full code DS: Summary Hospital Course Hospital Course: 59-year-old female with a past medical history of obesity, distant history kidney stones, essential hypertension, chronic pain, depression, GERD who presented to the ER from home with nausea vomiting and abdominal pain for 6 days.? The patient reports the pain initially started in her left lower quadrant and was colicky in nature.? She did not notice any eliciting or relieving factors.? It was associated with significant nausea and vomiting.? Emesis was nonbilious without evidence of blood.? She has had associated fever up to 101 with associated rigors and chills.? She took ibuprofen without relief in her symptoms.? She was able to keep down small amounts of popsicles and clear liquids.? She stated on the 1st 2 days of her symptoms she did have some loose stools that were brown and nonbloody.? She has not had any stools in the last 4 days.? She also noticed some lower back pain but she attributed this to her chronic DJD.? In hindsight, she thinks that her pain may have been worsened her low back than at baseline.? She denies any dysuria.? She has chronic urinary frequency due to a known history of a cystocele for the last 30 years.? In the ER CT scan demonstrated bilateral obstructive nephrolithiasis with associated hydronephrosis and UA was consistent with urinary tract infection.? She does report a distant history kidney stones greater than 40 years ago that she was able to pass on her own.? She reports that her pain was a 9/10 in intensity at its worst.? Her pain is down to 5/10 in intensity after cystoscopy with bilateral stent placement.? During the procedure the patient was noted to have frankly purulent urine from the left kidney.? Urine from the right kidney appeared clear.? Both ureters were obstructed by stones.? Patient maintained blood pressures throughout procedure.? Postprocedure patient did spike a fever to 100.4.? The patient is mildly tachycardic.? Her nausea has improved.? She has had no further vomiting. Urology consultation as above. Tuttle was kept in place for 24 hours and then withdrawn. Patient was able to void successfully. Urine culture came back positive for E coli. Patient's symptoms improved on Rocephin and so she was discharged in good condition on cefdinir for a total of 10 days. Time Spent wi
== END 2022-05-14 18:01 | disposition home or self-care (01) | DRG 854 ==
LOC: ANHED 19:14 → ANH2MED 19:37 → ANHIMU 23:02
PROVIDERS: Urology; Admitting Provider Internal Medicine; Emergency Provider Emergency Medicine; Visit Provider Student in an Organized Health Care Education/Training Program
PROC: 0T788DZ Dilation of Bilateral Ureters with Intraluminal Device, Via Natural or Artificial Opening Endoscopic (ICD-10-PCS; CPT 52352; principal; 2022-05-12 21:00)
DX: A41.9 Sepsis, unspecified organism (principal); N13.6 Pyonephrosis; N17.9 Acute kidney failure, unspecified; R65.20 Severe sepsis without septic shock; E87.6 Hypokalemia; N13.9 Obstructive and reflux uropathy, unspecified; E28.2 Polycystic ovarian syndrome; K21.9 Gastro-esophageal reflux disease without esophagitis; N81.4 Uterovaginal prolapse, unspecified; F32.A Depression, unspecified; E86.0 Dehydration; E66.01 Morbid (severe) obesity due to excess calories; Z68.39 Body mass index [BMI] 39.0-39.9, adult; Z87.891 Personal history of nicotine dependence; Z90.49 Acquired absence of other specified parts of digestive tract
CPT/HCPCS: 36415; 74018; 74176; 74420; 80048; 80053; 81001; 83690; 85025; 87040; 87077; 87086; 87186; 96361; 96374; 96375; 99285; A9270; C1758; C1769; C2617; J0696; J1170; J2405; J2704; J3010; J3480; J7030; J7040; J7120; Q9966

== ENCOUNTER 2024-09-08 13:49 | Outpatient (CLI) | payer MEDICARE, MEDICAID, SELFPAY ==
--- NOTE | ~2024-09-08 | US_ITS ---
EXAMINATION: US thyroid DATE: 09/08/2024 14:43 INDICATION: Nontoxic goiter. TECHNIQUE: Multiple ultrasound images of the thyroid were obtained. COMPARISON: None. FINDINGS: The right thyroid lobe measures 5.6 x 2.6 x 2.7 cm. The left thyroid lobe measures 5.8 x 3.6 x 2.0 c m. In the right thyroid lobe, there is a 2.0 cm solid, hypoechoic, wider than tall nodule with lobul ated margin without echogenic foci (TI-RADS TR4). In the right thyroid lobe, there is a 2.2 cm mixed cystic and solid, hypoechoic, wider than tall nodule with smooth margin without echogenic foci (TR3). In the left thyroid lobe, there is a 2.7 cm mixed cystic and solid, hypoechoic, wider than tall nodu le with smooth margin without echogenic foci (TR3). In the left thyroid lobe, there is a 2.8 cm almos t entirely cystic nodule (TR1). IMPRESSION: 1. Multinodular goiter. Ultrasound-guided fine-needle aspiration of the 2.0 cm right thyroid nodule a nd 2.7 cm left thyroid nodule is recommended. Reviewed, dictated and finalized at location A. NT ROOM TEACHER IMPRESSION: 1. Multinodular goiter. Ultrasound-guided fine-needle aspiration of the 2.0 cm right thyroid nodule and 2.7 cm left thyroid nodule is recommended.
--- OUTSIDE RECORDS SUMMARY | 2024-09-08 14:28 | XMS_ITS | Data Portability ---
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 although it sounds like she was never on nor told to be on chronic anticoagulation weight reduction is highly recommended I will see her back in a few months CBC CMP lipid A1c T3-T4 TSH vitamin-D B12 folic acid rheumatoid factor BRIDGER ESR CRP mammogram Cologuard factor 5 Leiden protein S activity protein C activity antiphospholipid lipid antibody homocystine level folic acid antithrombin 3 healthy lifestyle care instructions mammogram refuses flu refuses COVID [email or web address] Not available 06/13/2024 17:57:21 Plan of Treatment Reminders Order Date Submit Date Provider Last Modified By Organization Details Last Modified Time Details Appointments ANY 15 2024 09:15A Duke Lew MD Not available Not available Not available Lab CBC w/ auto diff 2023 024 [facility], [address], [address], [place], [address], 06/23/2024 13:12:39 urinalysi s complete, reflex culture 2023 024 [facility], [address], [address], [place], [address], 06/23/2024 13:12:30 rf (rheumato id factor), serum 2023 024 [facility], [address], [address], [place], [address], 06/23/2024 13:12:41 BRIDGER (antinucl ear antibodie s) screen, serum 2023 [facility], [address], [address], [place], [address], 06/23/2024 13:12:25 ESR (erythroc yte sedimenta tion rate), blood 2023 [facility], [address], [address], [place], [address], 06/23/2024 13:12:40 C reactive protein, QN, serum or plasma 2023 [facility], [address], [address], [place], [address], 06/23/2024 13:12:42 T3, free, serum or plasma 2023 024 [facility], [address], [address], [place], [address], 06/23/2024 13:12:44 T4, free, serum 2023 [facility], [address], [address], [place], [address], 06/23/2024 13:12:46 TSH, ultra-sen sitive, serum 2023 [facility], [address], [address], [place], [address], 06/23/2024 13:12:36 vitamin D, 25-hydrox y, total, serum 2023 024 [facility], [address], [place], [address], 06/23/2024 13:12:47 lipid panel, serum 2023 024 [facility], [address], [address], [place], [address], 06/23/2024 13:12:27 CMP, serum or plasma 2023 024 [facility], [address], [address], [place], [address], 06/23/2024 13:12:28 factor V mutation, blood or tissue 2023 024 [facility], [address], [address], [place], [address], 06/23/2024 13:12:32 protein S Ag, total + free, plasma 2023 024 [facility], [address], [address], [place], [address], 06/15/2024 15:10:24 protein C Ag, total, plasma 2023 024 [facility], [address], [address], [place], [address], 06/14/2024 17:07:43 antiphosp holipid antibody panel, serum 2023 024 [facility], [address], [address], [place], [address], 06/23/2024 13:12:26 homocyste ine, moles/vol ume, serum 2023 024 [facility], [address], [address], [place], [address], 06/23/2024 13:12:33 antithrom bin activity, plasma 2023 024 [facility], [address], [place], [address], 06/15/2024 06:07:57 HbA1c (hemoglob in A1c), blood 2023 024 [facility], [address] [facility], [address], [place], [address], 06/23/2024 13:12:35 insulin, serum 2023 024 [facility], [address] [facility], [address], [place], [address], 06/23/2024 13:12:38 noninvasi ve colorecta l cancer DNA + occult blood screening , QL, stool 2023 024 [facility] ([facility]ard Orders Only), [address], [address], [place], [address], 07/24/2024 01:04:44 vitamin B12 + folate, serum or blood 2023 024 [facility], [address] [place] [address], [address], [place], [address], 06/23/2024 13:12:34 Referral None recorded. Procedures None recorded. Surgeries None recorded. Imaging MAMMO, screening , digital, bilateral 2023 024 [email or web address], [address], [address], [place], [address], 09/08/2024 09:58:32 CT, abdomen + pelvis, w/ contrast [facility]23 [email or web address] [address] [place], [address], 07/15/2024 11:52:15 Medication Orders None recorded. Patient TargetsNo targets recorded. Patient Instructions Encounter Date Encounter Id Patient Instructions Last Modified By Organization Details Last Modified Time 06/12/2024 [id number] A healthy lifestyle: care instructions [email or web address] Not available 06/12/2024 11:59:03 Reason for Referral None Reported. Results Created Date Observation Date Name Description Value Unit Range Abnormal Flag Note LastModifiedBy Organization Detail LastModifiedTime 06/12/2006/14/2024 PROTE IN C ANTIG EN protein C antigen 116 % 60-150 Not Available [facility] ([facility]) [address] [facility], [place], [address], 06/14/2024 17:07:43 06/12/2006/14/2024 ANTIT HROMB IN ACTIV ITY antithrombin activity 117 % 75-135 Direc t Xa inhib itor antic oagul ants such as rivar oxaba n, apixa ban and edoxa ban will lead to spuri ously eleva eduardo antit hromb in activ ity level s possi yessenia maski ng a defic iency . Not Available [facility] ([facility]) [address] [facility], [place], [address], 06/15/2024 06:07:57 06/12/2006/15/2024 PROTE IN S PANEL protein S, total 111 % 60-150 This test was devel renee and its perfo rmanc e syeda cteri stics deter mined by [facility]. It has not been clear ed or appro shannon by the Food and Drug Admin istra tion. Not Available [facility] ([facility]) [address] [facility], [place], [address], 06/15/2024 15:10:24 06/12/20 24 06/15/2024 PROTE IN S PANEL protein S, free 106 % 61-136 Not Available [facility] ([facility]) [address] [facility], [place], [address], 06/15/2024 15:10:24 06/12/20 24 06/15/2024 PROTE IN S PANEL protein S-functional 57 % 63-140 below low normal A defic iency of prote in S (PS), eithe r conge nital or acqui red, incre ases the risk of throm boemb olism . PS activ ity level s may be false ly low in indiv idual s with APCR/ Facto r V Leide n. Consi isac perfo rming free prote in S antig en in those with APCR/ Facto r V Leide n befor e wilfredo osborne a diagn osis of prote in S defic iency . Acqui red PS defic iency is more commo n than conge nital defic iency . PS value s decre ase with oskar l pregn kendra, and are also depen dent on age, sex and hormo ne statu s. PS value s tend to be lower in a young er age group and lower in women than in men. Level s may be decre ased in pre-m enopa usal women on oral contr acept min agent s. Acqui red defic iency can occur as a resul t of vitam in K defic iency or antag onism , sever e hepat ic disor ders, (hepa titis , cirrh osis, etc.) , nephr otic syndr ome, infla mmato ry bowel disea se, certa in chemo thera peuti c agent s, L-asp aragi nse thera py, sepsi s, disse minat ed intra vascu lar coagu latio n (DIC) and acute throm bosis . Level s may be decre ased in patie nts with polyc ythem ia vera, sickl e cell disea se and essen tial throm bocyt hemia . Repea t evalu ation on a new plasm a sampl e to confi rm or refut e this resul t corry mendez be consi dered , after namrata osborne out acqui red cause s, oriana fajardo on the clini gretchen scena kennedy. Not Available [facility] ([facility]) [address] [facility], [place], [address], 06/15/2024 15:10:24 06/12/20 24 06/15/2024 MAGUNS+C 3+C4+ DNA/D S+ANT ICH+C EN... anti-DNA (ds) Ab qn <1 IU/mL 0-9 Negat min <5 Equiv ocal 5 - 9 Posit min >9 Not Available [facility] ([facility]) [address] [facility], [place], [address], 06/23/2024 13:12:24 06/12/20 24 06/15/2024 MAGNUS+C 3+C4+ DNA/D S+ANT ICH+C EN... boat officer antibodies 1.0 ai 0.0-0. 9 above high normal Not Available [facility] ([facility]) [address] [facility], [place], [address], 06/23/2024 13:12:24 06/12/20 24 06/15/2024 MAGNUS+C 3+C4+ DNA/D S+ANT ICH+C EN... szymanski antibodies <0.2 ai 0.0-0. 9 Not Available [facility] ([facility]) [address] [facility], [place], [address], 06/23/2024 13:12:24 06/12/20 24 06/15/2024 MAGNUS+C 3+C4+ DNA/D S+ANT ICH+C EN... antisclerode rma-70 antibodies <0.2 Not Available [facility] ([facility]) [address] [place], [address], 06/23/2024 13:12:24 11/01/06/15/2024 MAGNUS+C 3+C4+ DNA/D S+ANT ICH+C EN... sjogren's anti-ss-A <0.2 Not Available [facility] ([facility]) [address] [facility], [place], [address], 06/23/2024 13:12:24 06/12/20 24 06/15/2024 MAGNUS+C 3+C4+ DNA/D S+ANT ICH+C EN... sjogren's anti-ss-B <0.2 Not Available [facility] ([facility]) [address] [facility], [place], [address], 06/23/2024 13:12:24 06/12/20 24 06/15/2024 MAGNUS+C 3+C4+ DNA/D S+ANT ICH+C EN... antichromati n antibodies <0.2 Not Available [facility] ([facility]) [address] [facility], [place], [address], 06/23/2024 13:12:24 06/12/20 24 06/15/2024 MAGNUS+C 3+C4+ DNA/D S+ANT ICH+C EN... anti-hellen-1 <0.2 Not Available [facility] ([facility]) [address] [place], [address], 06/23/2024 13:12:24 06/12/20 24 06/15/2024 MAGNUS+C 3+C4+ DNA/D S+ANT ICH+C EN... anti-centrom ere B antibodies <0.2 Not Available [facility] ([facility]) [address] [place], [address], 06/23/2024 13:12:24 06/12/20 24 06/15/2024 MAGNUS+C 3+C4+ DNA/D S+ANT ICH+C EN... see below: Commen t Autoa ntibo dy Disea se Assoc iatio n ----- ----- ----- ----- ----- ----- ----- ----- ----- ----- ----- ----- Donali corwin atkinson ----- ----- ----- ----- - ----- ----- ----- ----- ---- ----- ---- Antin uclea r Antib rosette, SLE, mixed conne ctive Direc t (BRIDGER- D) tissu e disea ses ----- ----- ----- ----- - ----- ----- ----- ----- ---- ----- ---- dsDNA SLE 40 - 60% ----- ----- ----- ----- - ----- ----- ----- ----- ---- ----- ---- Chrom atin Drug induc ed SLE 90% SLE 48 - 97% ----- ----- ----- ----- - ----- ----- ----- ----- ---- ----- ---- SSA (Ro) SLE 25 - 35% Sjogr en's Syndr ome 40 - 70% Neona asmita Lupus 100% ----- ----- ----- ----- - ----- ----- ----- ----- ---- ----- ---- SSB (La) SLE 10% Sjogr en's Syndr ome 30% ----- ----- ----- ----- - ----- ----- ----- ----- --- ----- ---- Sm (anti -Abimael h) SLE 15 - 30% ----- ----- ----- ----- - ----- ----- ----- ----- --- ----- ---- [employer] Mixed Conne ctive Tissu e Disea se 95% (U1 nRNP, SLE 30 - 50% anti- ribon ucleo prote in) Polym yosit is and/o r King tomyo sitis 20% ----- ----- ----- ----- - ----- ----- ----- ----- ---- ----- ---- Scl-7 0 (anti DNA Scler oderm a (diff use) 20 - 35% topoi alea ase) Crest 13% ----- ----- ----- ----- - ----- ----- ----- ----- ---- ----- ---- Hellen-1 Polym yosit is and/o r King tomyo sitis 20 - 40% ----- ----- ----- ----- - ----- ----- ----- ----- ---- ----- ---- Centr omere B Scler oderm a - Crest varia nt 80% Not Available [facility] ([facility]) [address] [place], [address], 06/23/2024 13:12:24 06/12/20 24 06/16/2024 MAGNUS+C 3+C4+ DNA/D S+ANT ICH+C EN... complement C3, serum 225 mg/dL 82-167 above high normal Not Available [facility] ([facility]) [address] [place], [address], 06/23/2024 13:12:24 06/12/20 24 06/16/2024 MAGNUS+C 3+C4+ DNA/D S+ANT ICH+C EN... complement C4, serum 22 mg/dL 12-38 Not Available [facility] ([facility]) [address] [facility], [place], [address], 06/23/2024 13:12:24 06/12/20 24 06/15/2024 BRIDGER BRIDGER direct POSITI VE negati ve abnormal Not Available [facility] ([facility]) [address] [facility], [place], [address], 06/23/2024 13:12:25 06/12/20 24 06/12/2024 ANTIP HOSPH OLIPI D ANTIB ROSETTE interpretati on COMMEN T Resul ts for CL are repor eduardo as phosp holip id units based on Don mulligan Antip hosph olipi d antib rosette stand ards: GPL for IgG phosp holip id units , MPL for IgM phosp holip id units , APL for IgA phosp holip id units . Resul ts for PI, PG, and PS are based on oskar garay [facility] data stand ardiz ed to equiv alent phosp holip id units (Appr oxima tely 3 multi ples of the media n or 4 stand rip devia tions ). ----- ----- ----- ----- ----- ----- ----- ----- ----- ----- ----- ----- GPL MPL APL Resul t Inter preta tion ----- ----- ----- ----- ----- ----- ----- ----- ----- ----- ----- ----- <=10 <=10 <=15 Negat min No evide nce for antip hosph olipi d antib odies >10-< =20 10-<2 5 15-<= 28 Borde rline Not assoc iated with poor pregn kendra outco me or manif estat ions. >20-= <80 >=25- <80 >28-< =80 Posit min Can be assoc iated with recur rent pregn kendra loss, lupus , and throm bosis . >80 >80 >80 High Stron yvonne assoc iatio n Posit min with throm boemb olic event s / autoi mmune disea se. ----- ----- ----- ----- ----- ----- ----- ----- ----- ----- ----- ----- Not Available [facility] ([facility]) [address] [place], [address], 06/23/2024 13:12:26 06/12/2006/23/2024 ANTIP HOSPH OLIPI D ANTIB ROSETTE specimen status COMMEN T Refer ence lab repor t sent via fax. Not Available [facility] ([facility]) [address] [place], [address], 06/23/2024 13:12:26 06/12/20 24 06/13/2024 LIPID PANEL cholesterol, total 168 mg/dL 100-19 9 Not Available [facility] ([facility]) [address] [place], [address], 06/23/2024 13:12:27 06/12/20 24 06/13/2024 LIPID PANEL triglyceride s 151 mg/dL 0-149 above high normal Not Available [facility] ([facility]) [address] [place], [address], 06/23/2024 13:12:27 06/12/20 24 06/13/2024 LIPID PANEL HDL cholesterol 41 mg/dL >39 Not Available [facility] ([facility]) [address] [place], [address], 06/23/2024 13:12:27 06/12/20 24 06/13/2024 LIPID PANEL VLDL cholesterol gretchen 27 mg/dL 5-40 Not Available [facility] ([facility]) [address] [facility] [place], [address], 06/23/2024 13:12:27 06/12/20 24 06/13/2024 LIPID PANEL LDL chol calc ([facility]) 100 mg/dL 0-99 above high normal Not Available [facility] ([facility]) [address] [facility] [place], [address], 06/23/2024 13:12:27 06/12/20 24 06/13/2024 COMP. METAB OLIC PANEL (14) glucose 107 mg/dL 70-99 above high normal Not Available [facility] ([facility]) [address] [facility] [place], [address], 06/23/2024 13:12:28 06/12/20 24 06/13/2024 COMP. METAB OLIC PANEL (14) BUN 18 mg/dL 8-27 Not Available [facility] ([facility]) [address] [facility], [place], [address], 06/23/2024 13:12:28 06/12/20 24 06/13/2024 COMP. METAB OLIC PANEL (14) creatinine 1.13 mg/dL 0.57-1 .00 above high normal Not Available [facility] ([facility]) [address] [facility], [place], [address], 06/23/2024 13:12:28 06/12/20 24 06/13/2024 COMP. METAB OLIC PANEL (14) eGFR 52 mL/mi n/1.7 3 >59 below low normal Not Available [facility] ([facility]) [address] [facility] [place], [address], 06/23/2024 13:12:28 06/12/20 24 06/13/2024 COMP. METAB OLIC PANEL (14) BUN/creatini ne ratio 16 12-28 Not Available [facility] ([facility]) [address] [facility] [place], [address], 06/23/2024 13:12:28 11/01/20 24 06/13/2024 COMP. METAB OLIC PANEL (14) sodium 142 mmol/ L 134-14 4 Not Available [facility] ([facility]) [address] [facility] [place], [address], 06/23/2024 13:12:28 06/12/20 24 06/13/2024 COMP. METAB OLIC PANEL (14) potassium 4.5 mmol/ L 3.5-5. 2 Not Available [facility] ([facility]) [address] [facility] [place], [address], 06/23/2024 13:12:28 06/12/20 24 06/13/2024 COMP. METAB OLIC PANEL (14) chloride 102 mmol/ L 96-106 Not Available [facility] ([facility]) [address] [facility], [place], [address], 06/23/2024 13:12:28 06/12/20 24 06/13/2024 COMP. METAB OLIC PANEL (14) carbon dioxide, total 27 mmol/ L 20-29 Not Available [facility] ([facility]) [address] [facility] [place], [address], 06/23/2024 13:12:28 06/12/20 24 06/13/2024 COMP. METAB OLIC PANEL (14) calcium 9.2 mg/dL 8.7-10 .3 Not Available [facility] ([facility]) [address] [place], [address], 06/23/2024 13:12:28 06/12/20 24 06/13/2024 COMP. METAB OLIC PANEL (14) protein, total 7.6 g/dL 6.0-8. 5 Not Available [facility] ([facility]) [address] [facility] [place], [address], 06/23/2024 13:12:28 06/12/20 24 06/13/2024 COMP. METAB OLIC PANEL (14) albumin 4.1 g/dL 3.9-4. 9 Not Available [facility] ([facility]) [address] [facility] [place], [address], 06/23/2024 13:12:28 06/12/20 24 06/13/2024 COMP. METAB OLIC PANEL (14) globulin, total 3.5 g/dL 1.5-4. 5 Not Available [facility] ([facility]) [address] [facility] [place], [address], 06/23/2024 13:12:28 06/12/20 24 06/13/2024 COMP. METAB OLIC PANEL (14) bilirubin, total 0.7 mg/dL 0.0-1. 2 Not Available [facility] ([facility]) [address] [facility], [place], [address], 06/23/2024 13:12:28 06/12/20 24 06/13/2024 COMP. METAB OLIC PANEL (14) alkaline phosphatase 74 IU/L 44-121 Not Available [facility] ([facility]) [address] [facility] [place], [address], 06/23/2024 13:12:28 06/12/20 24 06/13/2024 COMP. METAB OLIC PANEL (14) AST (SGOT) 32 IU/L 0-40 Not Available [facility] ([facility]) [address] [facility], [place], [address], 06/23/2024 13:12:28 06/12/20 24 06/13/2024 COMP. METAB OLIC PANEL (14) ALT (SGPT) 29 IU/L 0-32 Not Available [facility] ([facility]) [address] [facility] [place], [address], 06/23/2024 13:12:28 06/12/20 24 06/13/2024 MICRO SCOPI C EXAMI NATIO N WBC >30 /hpf 0-5 abnormal Not Available [facility] ([facility]) [address] [facility], [place], [address], 06/23/2024 13:12:30 06/12/20 24 06/13/2024 MICRO SCOPI C EXAMI NATIO N RBC 0-2 /hpf 0-2 Not Available [facility] ([facility]) [address] [facility], [place], [address], 06/23/2024 13:12:30 06/12/20 24 06/13/2024 MICRO SCOPI C EXAMI NATIO N epithelial cells (non renal) 0-10 /hpf 0-10 Not Available [facility] ([facility]) [address] [facility], [place], [address], 06/23/2024 13:12:30 06/12/20 24 06/13/2024 MICRO SCOPI C EXAMI NATIO N casts None seen /lpf nonese en Not Available [facility] ([facility]) [address] [facility], [place], [address], 06/23/2024 13:12:30 06/12/20 24 06/13/2024 MICRO SCOPI C EXAMI NATIO N bacteria Many nonese en/few abnormal Not Available [facility] ([facility]) [address] [facility], [place], [address], 06/23/2024 13:12:30 06/12/20 24 06/13/2024 UA WITH CULTU RE REFLE X specific gravity 1.019 1.005- 1.030 Not Available [facility] ([facility]) [address] [facility], [place], [address], 06/23/2024 13:12:30 06/12/20 24 06/13/2024 UA WITH CULTU RE REFLE X pH 6.5 5.0-7. 5 Not Available [facility] ([facility]) [address] [facility], [place], [address], 06/23/2024 13:12:30 06/12/20 24 06/13/2024 UA WITH CULTU RE REFLE X urine-color YELLOW yellow Not Available [facility] ([facility]) [address] [facility], [place], [address], 06/23/2024 13:12:30 06/12/20 24 06/13/2024 UA WITH CULTU RE REFLE X appearance CLOUDY clear abnormal Not Available [facility] ([facility]) [address] [facility], [place], [address], 06/23/2024 13:12:30 06/12/20 24 06/13/2024 UA WITH CULTU RE REFLE X WBC esterase 2+ negati ve abnormal Not Available [facility] ([facility]) [address] [facility], [place], [address], 06/23/2024 13:12:30 06/12/20 24 06/13/2024 UA WITH CULTU RE REFLE X protein 2+ negati ve/tra ce abnormal Not Available [facility] ([facility]) [address] [facility], [place], [address], 06/23/2024 13:12:30 06/12/20 24 06/13/2024 UA WITH CULTU RE REFLE X glucose NEGATI VE negati ve Not Available [facility] ([facility]) [address] [facility], [place], [address], 06/23/2024 13:12:30 06/12/20 24 06/13/2024 UA WITH CULTU RE REFLE X ketones NEGATI VE negati ve Not Available [facility] ([facility]) [address] [place], [address], 06/23/2024 13:12:30 06/12/20 24 06/13/2024 UA WITH CULTU RE REFLE X occult blood TRACE negati ve abnormal Not Available [facility] ([facility]) [address] [place], [address], 06/23/2024 13:12:30 06/12/20 24 06/13/2024 UA WITH CULTU RE REFLE X bilirubin NEGATI VE negati ve Not Available [facility] ([facility]) [address] [facility], [place], [address], 06/23/2024 13:12:30 06/12/20 24 06/13/2024 UA WITH CULTU RE REFLE X urobilinogen ,semi-qn 1.0 mg/dL 0.2-1. 0 Not Available [facility] ([facility]) [address] [place], [address], 06/23/2024 13:12:30 06/12/20 24 06/13/2024 UA WITH CULTU RE REFLE X nitrite, urine POSITI VE negati ve abnormal Not Available [facility] ([facility]) [address] [facility], [place], [address], 06/23/2024 13:12:30 06/12/20 24 06/13/2024 UA WITH CULTU RE REFLE X microscopic examination SEE BELOW: Micro scopi c was indic ated and was perfo rmed. Not Available [facility] ([facility]) [address] [facility], [place], [address], 06/23/2024 13:12:30 06/12/20 24 06/13/2024 UA WITH CULTU RE REFLE X urinalysis reflex COMMEN T This speci men has refle xed to a Urine Cultu re. Not Available [facility] ([facility]) [address] [facility], [place], [address], 06/23/2024 13:12:30 06/12/20 24 06/19/2024 FACTO R V LEIDE N MUTAT ION factor V leiden COMMEN T abnormal Resul t: c.160 1G>A (p.Ar g534G ln) - Detec eduardo, Heter ozygo us This resul t is assoc iated with a 6- to 8-fol d incre ased risk for venou s throm boemb olism . See Addit ional Clini gretchen Infor matio n and Comme nts. Addit ional Clini gretchen Infor matio n: Venou s throm boemb olism is a multi facto rial disea se influ enced by pardeep ic, envir onmen asmita, and circu mstan tial risk facto rs. The c.160 1G>A (p. Arg53 4Gln) varia nt in the F5 gene, commo nly refer red to as Facto r V Leide n, is a pardeep ic risk facto r for venou s throm boemb olism . Heter ozygo us chapis ers of this varia nt have a 6- to 8-fol d incre ased risk for venou s throm boemb olism . Indiv idual s homoz ygous for this varia nt (ie, with a copy of the varia nt on each chrom osome ) have an appro ximat nicolasa 80-fo ld incre ased risk for venou s throm boemb olism . Indiv idual s who carry both a c.*97 G>A varia nt in the F2 gene and Facto r V Leide n have an appro ximat nicolasa 20-fo ld incre ased risk for venou s throm boemb olism . Risks are likel y to be even highe r in more compl ex genot ype combi natio ns invol ving the F2 c.*97 G>A varia nt and Facto r V Leide n (PMID : [id number]). Addit ional risk facto rs inclu de but are not limit ed to: defic iency of prote in C, prote in S, or antit hromb in III, age, male sex, perso nal or famil y histo ry of deep vein throm boemb olism , smoki ng, surge ry, prolo nged immob iliza tion, malig nant neopl asm, tamox ifen treat ment, ralox ifene treat ment, oral contr acept min use, hormo ne repla cemen t thera py, and pregn kendra. Manag ement of throm botic risk and throm botic event s shoul d follo w estab lishe d guide lines and fit the clini gretchen circu mstan ce. This resul t canno t predi ct the occur rence or recur rence of a throm botic event . Comme nt: Pardeep ic couns lloyd is recom nan d to discu ss the poten tial clini gretchen impli catio ns of posit min resul ts, as well as recom menda tions for testi ng famil y membe rs. Pardeep ic Coord inato rs are avail able for healt h care provi ders to discu ss resul ts at [phone] ([phone] ). Test Detai ls: Varia nt Kaela zed: c.160 1G>A (p. Arg53 4Gln) , refer red to as Facto r V Leide n Metho ds/Li mitat ions: DNA kaela sis of the F5 gene ([id number]) was perfo rmed by PCR ampli ficat ion follo wed by restr ictio n enzym e kaela sis. The diagn ostic sensi tivit y is >99%. Resul ts must be combi jus with clini gretchen infor matio n for the most accur ate inter preta tion. Molec ular- based testi ng is highl y accur ate, but as in any labor atory test, diagn ostic error s may occur . False posit min or false negat min resul ts may occur for reaso ns that inclu de pardeep ic varia nts, blood trans fusio ns, bone marro w trans plant ation , somat ic or tissu e-spe cific mosai cism, misla beled sampl es, or finn eous repre senta tion of famil y relat ionsh ips. This test was devel oped and its perfo rmanc e syeda cteri stics deter mined by [employer]. It has not been clear ed or appro shannon by the Food and Drug Admin istra tion. Refer ences : Emily S, Saturnino ANDREWS, Anthony Luna, Cherie MUNOZ, Tra in ; A[facility] Profe ssion al Pract ice and Guide lines Commi ttee. Adden dum: Taras garcia Colle ge of Medic al Pardeep ics conse nsus state ment on facto r V Leide n mutat ion testi ng. Pardeep Med. 2020Oct 14. doi: 10.10 38/s4 1436- 021-0 1108- x. PMID: 30136 767. Robert SORENSEN. Facto r V Leide n Throm bophi neisha. 1998December 23 (Upda eduardo 2017Aug 15). In: Rajinder MP, Shyann russell HH, Irvin RA, et al., umang rs. GeneR cordell sebastian(R) (Inte rnet) . Gary marx ([place]): [facility] kenory Gary; 1992- 2020. Avail able from: https ://ww w.ncb i.nlm .nih. gov/b ooks/ NBK13 68/ Rakan S, Saturnino luna AK, Deshawn X, Shemar B, Spect or EB, Itzel P, Cara armando CS; [facility] Labor atory Quali ty Assur ance Commi ttee. Venou s throm boemb olism labor atory testi ng (fact or V Leide n and facto r II c.*97 G>A), 2018 updat e: a techn ical stand rip of the Felicityeri radha Razo ge of Medic al Pardeep ics and Genom ics ([facility] ). Pardeep Med. 2017;2 012) :1489 -1498 . doi: 10.10 38/s4 1436- 018-0 322-z . Epub 2017May 16. PMID: 12063 698. Not Available [facility] ([facility]) [address] [place], [address], 06/23/2024 13:12:32 06/12/20 24 06/19/2024 FACTO R V LEIDE N MUTAT ION reviewed by: SARAH Olivares Techn ical Crayne nent perfo rmed at [facility] RTP Kobe shaw al Crayne nent perfo rmed by: Labor atory Corpo ratio n of Ameri ca Holdi ngs Kevin aclhoun, Ph.D. , [facility] Dire tor, Molec ular Pardeep ics [address] [place] [address] Not Available [facility] ([facility]) [address] [facility] [place], [address], 06/23/2024 13:12:32 06/12/20 24 06/13/2024 HOMOC YST(E )INE homocyst(E)i ne 13.7 umol/ L 0.0-17 .2 Not Available [facility] ([facility]) [address] [facility] [place], [address], 06/23/2024 13:12:33 06/12/20 24 06/13/2024 VITAM IN B12 AND FOLAT E vitamin B12 349 pg/mL 232-12 45 Not Available [facility] ([facility]) [address] [facility] [place], [address], 06/23/2024 13:12:34 06/12/20 24 06/13/2024 VITAM IN B12 AND FOLAT E folate (folic acid), serum 7.0 NG/mL >3.0 A serum folat e tushar ntrat ion of less than 3.1 ng/mL is consi dered to repre sent clini gretchen defic iency . Not Available [facility] ([facility]) [address] [facility], [place], [address], 06/23/2024 13:12:34 06/12/20 24 06/13/2024 HEMOG LOBIN A1C hemoglobin A1C 6.5 % 4.8-5. 6 above high normal Predi abete s: 5.7 - 6.4 Diabe bashir: >6.4 Glyce terrell contr ol for adult s with diabe bashir: <7.0 Not Available [facility] ([facility]) [address] [facility] [place], [address], 06/23/2024 13:12:35 06/12/20 24 06/13/2024 TSH TSH 0.019 uIU/m L 0.450- 4.500 below low normal Not Available [facility] ([facility]) [address] [facility] [place], [address], 06/23/2024 13:12:36 06/12/20 24 06/13/2024 INSUL IN insulin 25.3 uIU/m L 2.6-24 .9 above high normal Not Available [facility] ([facility]) [address] [facility], [place], [address], 06/23/2024 13:12:37 06/12/20 24 06/13/2024 CBC WITH DIFFE RENTI AL/PL ATELE T WBC 5.4 x10e3 /uL 3.4-10 .8 Not Available [facility] ([facility]) [address] [facility], [place], [address], 06/23/2024 13:12:39 06/12/20 24 06/13/2024 CBC WITH DIFFE RENTI AL/PL ATELE T RBC 5.30 x10e6 /uL 3.77-5 .28 above high normal Not Available [facility] ([facility]) [address] [facility], [place], [address], 06/23/2024 13:12:39 06/12/20 24 06/13/2024 CBC WITH DIFFE RENTI AL/PL ATELE T hemoglobin 14.0 g/dL 11.1-1 5.9 Not Available [facility] ([facility]) [address] [facility], [place], [address], 06/23/2024 13:12:39 06/12/20 24 06/13/2024 CBC WITH DIFFE RENTI AL/PL ATELE T hematocrit 44.1 % 34.0-4 6.6 Not Available [facility] ([facility]) [address] [place], [address], 06/23/2024 13:12:39 06/12/20 24 06/13/2024 CBC WITH DIFFE RENTI AL/PL ATELE T MCV 83 fL 79-97 Not Available [facility] ([facility]) [address] [place], [address], 06/23/2024 13:12:39 06/12/20 24 06/13/2024 CBC WITH DIFFE RENTI AL/PL ATELE T MCH 26.4 pg 26.6-3 3.0 below low normal Not Available [facility] ([facility]) [address] [facility], [place], [address], 06/23/2024 13:12:39 06/12/20 24 06/13/2024 CBC WITH DIFFE RENTI AL/PL ATELE T MCHC 31.7 g/dL 31.5-3 5.7 Not Available [facility] ([facility]) [address] [facility], [place], [address], 06/23/2024 13:12:39 06/12/20 24 06/13/2024 CBC WITH DIFFE RENTI AL/PL ATELE T RDW 14.6 % 11.7-1 5.4 Not Available [facility] ([facility]) [address] [facility], [place], [address], 06/23/2024 13:12:39 06/12/20 24 06/13/2024 CBC WITH DIFFE RENTI AL/PL ATELE T platelets 186 x10e3 /uL 150-45 0 Not Available [facility] ([facility]) [address] [facility], [place], [address], 06/23/2024 13:12:39 06/12/20 24 06/13/2024 CBC WITH DIFFE RENTI AL/PL ATELE T neutrophils 58 % notest ab. Not Available [facility] ([facility]) [address] [place], [address], 06/23/2024 13:12:39 06/12/20 24 06/13/2024 CBC WITH DIFFE RENTI AL/PL ATELE T lymphs 32 % notest ab. Not Available [facility] ([facility]) [address] [place], [address], 06/23/2024 13:12:39 06/12/20 24 06/13/2024 CBC WITH DIFFE RENTI AL/PL ATELE T monocytes 7 % notest ab. Not Available [facility] ([facility]) [address] [facility], [place], [address], 06/23/2024 13:12:39 06/12/20 24 06/13/2024 CBC WITH DIFFE RENTI AL/PL ATELE T eos 2 % notest ab. Not Available [facility] ([facility]) [address] [facility], [place], [address], 06/23/2024 13:12:39 06/12/20 24 06/13/2024 CBC WITH DIFFE RENTI AL/PL ATELE T basos 1 % notest ab. Not Available [facility] ([facility]) [address] [facility], [place], [address], 06/23/2024 13:12:39 06/12/20 24 06/13/2024 CBC WITH DIFFE RENTI AL/PL ATELE T neutrophils (absolute) 3.1 x10e3 /uL 1.4-7. 0 Not Available [facility] ([facility]) [address] [facility], [place], [address], 06/23/2024 13:12:39 06/12/20 24 06/13/2024 CBC WITH DIFFE RENTI AL/PL ATELE T lymphs (absolute) 1.7 x10e3 /uL 0.7-3. 1 Not Available [facility] ([facility]) [address] [facility], [place], [address], 06/23/2024 13:12:39 06/12/20 24 06/13/2024 CBC WITH DIFFE RENTI AL/PL ATELE T monocytes(ab solute) 0.4 x10e3 /uL 0.1-0. 9 Not Available [facility] ([facility]) [address] [facility], [place], [address], 06/23/2024 13:12:39 06/12/20 24 06/13/2024 CBC WITH DIFFE RENTI AL/PL ATELE T eos (absolute) 0.1 x10e3 /uL 0.0-0. 4 Not Available [facility] ([facility]) [address] [facility] [place], [address], 06/23/2024 13:12:39 06/12/20 24 06/13/2024 CBC WITH DIFFE RENTI AL/PL ATELE T baso (absolute) 0.0 x10e3 /uL 0.0-0. 2 Not Available [facility] ([facility]) [address] [facility] [place], [address], 06/23/2024 13:12:39 06/12/20 24 06/13/2024 CBC WITH DIFFE RENTI AL/PL ATELE T immature granulocytes 0 % notest ab. Not Available [facility] ([facility]) [address] [facility], [place], [address], 06/23/2024 13:12:39 06/12/20 24 06/13/2024 CBC WITH DIFFE RENTI AL/PL ATELE T immature grans (abs) 0.0 x10e3 /uL 0.0-0. 1 Not Available [facility] ([facility]) [address] [facility], [place], [address], 06/23/2024 13:12:39 06/12/20 24 06/13/2024 SEDIM ENTAT ION RATE- WESTE RGREN sedimentatio n rate-westerg andrey 48 mm/HR 0-40 above high normal Not Available [facility] ([facility]) [address] [facility] [place], [address], 06/23/2024 13:12:40 06/12/20 24 06/13/2024 RHEUM ATOID FACTO R (RF) rheumatoid factor (rf) <10.0 IU/mL <14.0 Not Available [facility] ([facility]) [address] [facility] [place], [address], 06/23/2024 13:12:41 06/12/20 24 06/13/2024 C-ZOEY CTIVE PROTE IN, QUANT C-reactive protein, quant 21 mg/L 0-10 above high normal Not Available [facility] ([facility]) [address] [place], [address], 06/23/2024 13:12:42 06/12/20 24 06/16/2024 URINE CULTU RE, ROUTI NE urine culture, routine Final report abnormal Not Available [facility] ([facility]) [address] [facility], [place], [address], 06/23/2024 13:12:44 06/12/20 24 06/16/2024 URINE CULTU RE, ROUTI NE result 1 Escher ichia coli abnormal Cefaz yony <=4 ug/mL Cefaz yony with an TERRELL <=16 predi cts susce ptibi lity to the oral agent s cefac noah, cefdi isela, cefpo doxim e, cefpr ozil, cefur oxime , cepha lexin , and lorac arbef when used for thera py of uncom plica eduardo urina ry tract infec tions due to E. coli, Klebs iella pneum oniae , and Prote us mirab ilis. Great er than 100,0 00 colon y formi ng units per mL Not Available [facility] ([facility]) [address] [facility], [place], [address], 06/23/2024 13:12:44 06/12/20 24 06/16/2024 URINE CULTU RE, ROUTI NE antimicrobia l susceptibili ty Commen t S = Susce ptibl e; I = Inter media te; R = Resis tant P = Posit min; N = Negat min MICS are expre ssed in micro grams per mL Antib iotic RSLT# 1 RSLT# 2 RSLT# 3 RSLT# 4 Amoxi cilli n/Cla vulan ic Acid S Ampic illin S Cefep aubrey S Ceftr iaxon e S Cefur oxime S Cipro floxa eitan S Ertap enem S Genta micin S Imipe nem S Levof loxac in S Merop enem S Nitro furan toin S Piper acill in/Ta zobac merchant S Tetra cycli ne S Tobra mycin S Trime thopr im/Villalobos lfa S Not Available [facility] ([facility]) [address] [place], [address], 06/23/2024 13:12:44 06/12/20 24 06/13/2024 TRIIO DOTHY CELESTINE E (T3), FREE triiodothyro nine (T3), free 3.5 pg/mL 2.0-4. 4 Not Available [facility] ([facility]) [address] [facility], [place], [address], 06/23/2024 13:12:44 06/12/20 24 06/13/2024 T4,FR EE(DI RECT) T4,free(dire ct) 1.41 NG/dL 0.82-1 .77 Not Available [facility] ([facility]) [address] [place], [address], 06/23/2024 13:12:46 06/12/20 24 06/13/2024 VITAM IN D, 25-HY DROXY vitamin D, 25-hydroxy 12.0 NG/mL 30.0-1 00.0 below low normal Vitam in D defic iency has been defin ed by the Insti tute of Medic ine and an Endoc rine Socie ty pract ice guide line as a level of serum 25-OH vitam in D less than 20 ng/mL (1,2) . The Endoc rine Socie ty went on to furth er defin e vitam in D insuf ficie ncy as a level betwe en 21 and 29 ng/mL (2). 1. IOM (Inst itute of Medic ine). 2010. Dieta ry refer ence intak es for calci um and D. Erica jasmine DC: The Natio nal [employer] [facility] Press . 2. Nnamdi johnston MF, Deniz villegas NC, Abilio off-F angel SANCHEZ, et al. Evalu ation , treat ment, and preve ntion of vitam in D defic iency : an Endoc rine Socie ty clini gretchen pract ice guide line. JCEM. 2010; 96(7) :1911 -30. Not Available [facility] ([facility]) [address], [place], [address], 06/23/2024 13:12:47 07/17/20 24 07/17/2024 COLOG UARD cologuard result reportable NEGATI VE negati ve normal NEGAT MIN TEST RESUL T. A negat min Colog uard resul t indic ates a low likel ihood that a color ectal cance r (CRC) or advan mike adeno ma (polo omato us polyp s with more advan mike pre-m align ant featu res) is prese nt. The chanc e that a perso n with a negat min Colog uard test has a color ectal cance r is less than 1 in 1500 (nega tive predi ctive value >99.9 %) or has an advan mike adeno ma is less than 5.3% (nega tive predi ctive value 94.7% ). These data are based on a prosp ectiv e cross -sect ional study of 10,00 0 indiv idual s at narrows ge risk for color ectal cance r who were scree jus with both Colog uard and colon oscop y. (Zak Bloom et al, N Engl J Med 2014; 370(1 4):12 86-12 97) The oskar l value (refe rence range ) for this assay is negat min. COLOG UARD RE-SC REENI NG RECOM MENDA TION: Perio dic color ectal cance r scree leonel is an impor tant part of preve ntive healt hcare for asymp tomat ic indiv idual s at narrows ge risk for color ectal cance r. Follo wing a negat min Colog uard resul t, the Ameri can Cance r Socie ty and U.S. Multi -Soci ety Task Force scree leonel guide lines recom mend a Colog uard re-sc swathi ng inter kenny of 3 years . Refer ences : Taras can Cance r Socie ty Guide line for Color ectal Cance r Scree leonel: https ://carson w.can cer.o rg/ca ncer/ colon -rect al-ca ncer/ detec tion- diagn osis- stagi ng/ac s-rec ommen datio ns.ht ml.; Bernard ISLAS, Abril REYNOSO, Colleen lees JK, Color ectal Cance r Scree leonel: Recom menda tions for Physi cians and Patie nts from the U.S. Multi -Soci ety Task Force on Color ectal Cance r Scree leonel , Felicity almanzarog y 2017; 112:1 016-1 030. TEST DESCR IPTIO N: Crayne site algor ithmi c kaela sis of stool DNA-b iomar kers with hemog lobin immun oassa y. Quant itati ve value s of indiv idual bioma rkers are not repor table and are not assoc iated with indiv idual bioma rker resul t refer ence range s. Colog uard is inten ded for color ectal cance r scree leonel of adult s of eithe r sex, 45 years or older , who are at [facility] for color ectal cance r (CRC) . Colog uard has been appro shannon for use by the U.S. FDA. The perfo rmanc e of Colog uard was estab lishe d in a cross secti onal study of [facility] adult s aged 50-84 . Colog uard perfo rmanc e in patie nts ages 45 to 49 years was estim ated by sub-g roup kaela sis of near- age group s. Colon oscop ies perfo rmed for a posit min resul t may find as the most clini kathy signi fican t lesio n: color ectal cance r [4.0% ], advan mike adeno ma (incl uding sessi le markell eduardo polyp s great er than or equal to 1cm diame ter) [20%] or non- advan mike adeno ma [31%] ; or no color ectal neopl mary [45%] . These estim ates are deriv ed from a prosp ectiv e cross -sect ional scree leonel study of 0 indiv idual s at narrows ge risk for color ectal cance r who were scree jus with both Colog uard and colon oscop y. (Zak Bloom et al, N Engl J Med 2014; 370(1 4):12 86-12 97.) Colog uard may produ ce a false negat min or false posit min resul t (no color ectal cance r or preca ncero us polyp prese nt at colon oscop y follo w up). A negat min Colog uard test resul t does not guara ntee the absen ce of CRC or advan mike adeno ma (pre- cance r). The curre nt Colog uard scree leonel inter kenny is every 3 years . (Amer ican Cance r Socie ty and U.S. Multi -Soci ety Task Force ). Colog uard perfo rmanc e data in a 0 patie nt pivot al study using colon oscop y as the refer ence metho d can be acces sed at the follo wing locat ion: www.e xactl abs.c om/re alondra . Addit ional descr iptio n of the Colog uard test proce ss, warni ngs and preca ution s can be found at www.c teriu rip.c om. Not Available [facility] (Cologuard Orders Only) [address], [place], [address], 07/24/2024 01:04:44 Result Notes None recorded. Problems Name Problem SNOMED Code Status Onset Date Resolution Date Notes Provider Name and Address Organization Details Recorded Time Body mass index 40+ - severely obese 683093486 Active 2023 Raúl Grissom [place] null, [place] - [facility] 4 11:02:32 Morbid obesity 566812706 Active 2023 Raúl Grissom [place] [facility] 4 11:02:33 Joint pain 74563275 Active 2023 Raúl Grissom [place] [facility] 4 11:02:34 Non-alcoho lic fatty liver 818144233 Active 2023 Raúl Grissom [place] [facility] 4 11:02:34 Vitamin D deficiency 29887164 Active 2023 Raúl Grissom [place] [facility] 4 11:02:35 Gastroesop hageal reflux disease without esophagiti s 392433705 Active 2023 Raúl Grissom [place] [facility] 4 11:02:40 Serum vitamin B12 below reference range 274981082 Active 2023 Raúl Grissom [place] [facility] 4 11:02:41 History of deep vein thrombosis 690094445 Active 2023 x3 according to patient never recommende d to be on chronic anticoagul ation saw hematologi st in past Demetrius Lew MD Attn: Puma osborne,[address] [facility], [place], [address] [facility] - [facility] 4 17:58:06 Screening for malignant neoplasm of colon Active 2023 Raúl Grissom [place] [facility] 4 11:04:36 Screening mammograph y Active 2023 Raúl Grissom [place] [facility] 4 11:04:37 Polycystic ovary syndrome 251654698 Active 2023 Raúl Grissom [place] [facility] 4 11:12:48 Problem Notes None recorded. Procedures Surgical History Date Name Laterality Status Provider Name and Address Organization Details Recorded Time 08/12/19 10 Gastrointestinal Surgery completed FREDDY Mcguire [facility] 06/12/2024 10:42:50 08/12/19 10 Hernia Repair completed FREDDY Mcguire 06/12/2024 10:43:20 08/12/18 99 Hernia Repair completed FREDDY Mcguire [facility] 06/12/2024 10:43:16 08/12/18 86 Gastric Bypass completed [facility], [facility] 06/12/2024 10:41:25 08/12/18 76 Cholecystectomy completed [facility], [facility] 06/12/2024 10:41:03 08/12/18 76 Gastrointestinal Surgery completed [facility], [facility] 06/12/2024 10:42:44 08/12/18 63 Tonsillectomy completed [facility], [facility] 06/12/2024 10:48:49 08/12/18 60 Tonsillectomy completed [facility], [facility] 06/12/2024 10:44:21 Imaging Results None recorded. Procedure Notes None recorded. Medical Equipment None Reported. Allergies Allergen ID Allergen Name Allergen Category Reaction Reaction Severity Criticality Documentation Date Start Date Code Code System Note Provider Name and Address Organization Details Recorded Time [id number] 8881513t5 2824e Demerol medicatio n Not available Not available Not available 06/12/2024 10234 1 RxNorm Not Available Not Available Not Available [id number] 545761110 9003260k5 2824e shellfish derived food,medi cation Not available Not available Not available 06/12/2024 97730 UNK Not Available Not Available Not Available [id number] 2824e Naprosyn medicatio n Not available Not available Not available 06/12/2024 85877 2 RxNorm Not Available Not Available Not Available [id number] 2824e codeine medicatio n Not available Not available Not available 06/12/2024 2670 RxNorm Not Available Not Available Not Available [id number] 2824e Robaxin medicatio n Not available Not available Not available 06/12/2024 06312 5 RxNorm Not Available Not Available Not Available [id number] 2824e erythromy eitan medicatio n Not available Not available Not available 06/12/2024 4053 RxNorm Not Available Not Available Not Available [id number] 2824e latex environme nt,medica tion Not available Not available Not available 06/12/2024 92384 91 RxNorm Not Available Not Available Not Available Medications Name Sig Start Date Stop Date Status Note LastModified by Organization Details LastModified Time fluoxetine 40 mg capsule Take 1 capsule every day by oral route for 90 days. active Not Available Not Available No t Available cyclobenzap rine 10 mg tablet Take 1 tablet 3 times a day by oral route as needed for 90 days. active Not Available Not Available No t Available bupropion HCl SR 150 mg tablet,12 hr sustained-r elease Take 1 tablet twice a day by oral route for 90 days. active Not Available Not Available No t Available IBU 800 mg tablet Take 1 tablet 3 times a day by oral route as needed for 90 days. active Not Available Not Available No t Available tizanidine 4 mg tablet 05/29 completed Not Available Not Available Not Available methylpredn isolone 32 mg tablet TAKE 1 TABLET BY MOUTH 12 HOURS BEFORE CAT SCAN, THEN TAKE 1 TABLET BY MOUTH 2 HOURS BEFORE CAT SCAN active Not Available Not Available No t Available tramadol 50 mg tablet Take 1 tablet 3 times a day by oral route for 90 days. active Not Available Not Available No t Available flunisolide 25 mcg (0.025 %) nasal spray 05/29 completed Not Available Not Available Not Available pantoprazol e 40 mg tablet,pool yed release Take 1 tablet every day by oral route for 90 days. active Not Available Not Available No t Available metformin 1,000 mg tablet Take 1 tablet twice a day by oral route as directed for 90 days. active Not Available Not Available No t Available lisinopril 10 mg tablet Take 1 tablet twice a day by oral route for 90 days. active Not Available Not Available No t Available furosemide 20 mg tablet Take 1 tablet every day by oral route for 90 days. active Not Available Not Available No t Available ergocalcife rol (vitamin D2) 1,250 mcg (50,000 unit) capsule TAKE 1 CAPSULE WEEKLY active Not Available Not Available No t Available albuterol sulfate HFA 90 mcg/actuati on aerosol inhaler Inhale 2 puffs as needed by inhalatio n route for 17 days. active Not Available Not Available No t Available nitrofurant oin monohydrate /macrocryst als 100 mg capsule TAKE 1 CAPSULE BY MOUTH TWICE A DAY FOR 5 DAYS active Not Available Not Available No t Available Vitamin D3 otc active Not Available Not Av ailable Not Available Banophen 50 mg capsule TAKE 1 CAPSULE BY MOUTH 2 HOURS BEFORE CAT SCAN active Not Available Not Available No t Available Vitals Date Recorded Body height Provider Name an d Address Organization Details Last Updated DateTime 06/12/2024 165.1 cm Yanci Virgen MA [facility] 06/12/2024 10:12:05 Date Recorded Body mass index (BMI) Body weight Provider Name and Address Organization Details Last Updated DateTime 06/12/2024 53.8 kg/m2 526735.13 g Yanci Virgen MA [facility] 10:12:10 Date Recorded Heart rate Provider Name an d Address Organization Details Last Updated DateTime 06/12/2024 88 /min Yanci Virgen MA [facility] 06/12/2024 10:15:53 Date Recorded Oxygen saturation Oxygen saturation in Arterial blood by Pulse oximetry Provider Name and Address Organization Details Last Updated DateTime 06/12/2024 95 % 95 % Yanci Virgen MA [facility] 06/12 10:15:56 Date Recorded Systolic blood pressure Diastolic blood pressure Provider Name and Address Organization Details Last Updated DateTime 06/12/2024 130 mm[Hg] 88 mm[Hg] Yanci Virgen MA [facility] 08/2023 10:15:51 Social History Question Answer Notes LastModified by Organizat ion Details LastModified Time Tobacco Smoking Status Former Smoker [facility] 06/12/2024 10:18:40 Do You Have An Advance Directive? No Information not available 06/12/2024 What Is Your Level Of Alcohol Consumption? Occasional Information not available 06/12/2024 Are You Blind Or Do You Have Difficulty Seeing? No Information not available 06/12/2024 What Is Your Level Of Caffeine Consumption? Occasional Information not available 06/12/2024 In The 14 Days Before Symptom Onset, Have You Had Close Contact With A Laboratory-confir med COVID-19 While That Case Was Ill? No Information not available 06/12/2024 In The 14 Days Before Symptom Onset, Have You Had Close Contact With A Person Who Is Under Investigation For COVID-19 While That Person Was Ill? No Information not available 06/12/2024 Have You Been To An Area Known To Be High Risk For COVID-19? No Information not available 06/12/2024 Are You Deaf Or Do You Have Serious Difficulty Hearing? No Information not available 06/12/2024 What Type Of Diet Are You Following? REGULAR Information not available 06/12/2024 Are There Any Guns Present In Your Home? No Information not available 06/12/2024 What Was The Date Of Your Most Recent Tobacco Screening? 06/12/2024 Information not available 06/12/2024 What Is Your Relationship Status? Single Information not available 06/12/2024 Do You Use Your Seat Belt Or Car Seat Routinely? Yes Information not available 06/12/2024 Do You Have Smoke And Carbon Monoxide Detectors In Your Home? Yes Information not available 06/12/2024 How Much Tobacco Do You Smoke? No Information not available 06/12/2024 Do You Use Any Illicit Or Recreational Drugs? No Information not available 06/12/2024 Do You Use Sunscreen Routinely? Yes Information not available 06/12/2024 Has Tobacco Cessation Counseling Been Provided? No Information not available 06/12/2024 Sex: Female Functional Status Question Answer Note LastModified by Organization D etails LastModified Time Are you able to care for yourself? Yes Information n ot available 06/12/2024 Mental Status None recorded. Family History Relationship Description Onset Age of this Age Resolved Age Notes LastModified by Organization Details LastModified Time Sister Asthma gwardma Not available 10:32:14 Sister Attention deficit hyperactivit y disorder gwardma Not available 06/12 10:32:34 Sister Blood coagulation disorder gwardma Not available 2023 10:32:45 Sister Depressive disorder gwardma Not available 2023 10:35:40 Sister Kidney disease gwardma Not available 2023 10:38:02 Sister Migraine gwardma Not available 06/12/2024 10:38:14 Sister Osteoporosis gwardma Not availa ble 06/12/2024 10:39:05 Sister Factor V deficiency gwardma Not available 06/12 10:40:24 Brother Attention deficit hyperactivit y disorder gwardma Not available 06/12 10:32:34 Brother Depressive disorder gwardma Not available 2023 10:35:40 Brother Diabetes mellitus gwardma Not available 2023 10:35:55 Brother Hypertensive disorder gwardma Not available 2023 10:37:41 Brother Hypercholest erolemia gwardma Not available 2023 10:37:51 Brother Non-Hodgkin' s lymphoma (clinical) gwardma Not available 06/12 10:39:42 Brother Factor V deficiency gwardma Not available 06/12 10:40:24 Mother Family history of breast cancer gwardma Not available 2023 10:32:57 Father Heart disease gwardma Not available 2023 10:36:25 Medical History Condition Response High Blood Pressure Y Thyroid Problems Y Kidney or Bladder Problems Y Depression Y Blood Clots Y Anemia Y Anxiety Disorder Y Acid Reflux (GERD) Y Allergies Y High Cholesterol Y Liver Disease Y Gynecological HistoryNo gynecological history recorded. Obstetrics History GPAL:G 0 P 0 0 0 0 Past Encounters Encounter ID Performer Location Encounter Start Date Encounter Closed Date Diagnosis/Indication Diagnosis SNOMED-CT Code Diagnosis ICD10 Code Diagnosis Note [id number] Demetrius Lew MD [facility] (Adult Med) [address] [place] [phone] 06/12/2024 09:48:33 06/12/2024 11:00:39 Body mass index 40+ - severely obese 177005819 Z68.43 Morbid obesity 302993500 E66.01 Joint pain 59978072 M25. 50 Non-alcoho lic fatty liver 136205696 K76.0 Vitamin D deficiency 347 40473 E55.9 Serum alondra min B12 below reference range 272069910 R79.89 Gastroesop hageal reflux disease without esophagitis 345815228 K21.9 Screening mammography 24 726621 Z12.31 Screening for malignant neoplasm of colon 924047689 Z12.11 History of deep vein thrombosis 937059536 Z86.718 Polycystic ovary syndrome 936382935 E28.2 Screening for cardiovascular system disease 966849808 Z13.6 Long-term drug therapy 541972965 Z79.891 Fatigue 97155127 R53.83 Abdominal pain 34906074 R10.9 Influenza vaccination declined 606152531 Z28.21 SARS-CoV-2 vaccination declined 2473872711 Z28.21 Health Concerns Section Related Observation LastModified by Organization Detai ls LastModified Time None Recorded Concern Status LastModified by Organization Details LastModified Time None Recorded Advance Directives Directive N: Payers Encounter Date Sequence Insurance Name Policy Number Policy Durbin Covered Member ID Durbin Member ID Guarantor Name 06/12/2024 1 [employer] [facility] - PREMIER PLAN - DUAL (MEDICARE - MEDICAID REPLACEMENT HMO) Ally Ayala [id number] Ally Ayala Notes Date Note Type Note Provider Name and Address Organization Details Recorded Time 06/12/2024 text/html 69-year-old with longstanding complicated medical history osteoarthritis and degenerative arthritis recurrent DVT history of kidney stone history of MTHFR deficiency history of fatty liver polycystic ovary low vitamin-D bariatric surgery with ileal Junel bypass that had to be reconnected history of ongoing ventral hernia for which she has seen specialists and wants to see 1 again because it is becoming more painful and she now comes in to establish care she has been out of her medications for a yearfamily history mother of Alzheimer's at the age of 82 she is not sure what her father was afflicted with. Demetrius Lew MD Attn: Accounting,[address] [facility], [place], [address], [facility] 06/13/2024 17:59:15 OBGyn Episode No OBEpisode recorded.
--- OUTSIDE RECORDS SUMMARY | 2024-09-08 14:28 | XMS_ITS | Encounter Summary ---
Author Organization [facility] Address 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
--- OUTSIDE RECORDS SUMMARY | 2024-09-08 14:28 | XMS_ITS | Encounter Summary ---
Author Organization [employer] Address 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
--- OUTSIDE RECORDS SUMMARY | 2024-09-08 14:28 | XMS_ITS | Encounter Summary ---
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
--- OUTSIDE RECORDS SUMMARY | 2024-09-08 14:28 | XMS_ITS | Encounter Summary ---
Author Organization [email or web address] Address 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
--- OUTSIDE RECORDS SUMMARY | 2024-09-08 14:28 | XMS_ITS | Referral Summary ---
Author Organization [facility] Address [address] [place] [address] Care Team Providers Care Retread Mold Operator Name Role Phone Janny Torres MD Unavailable [phone] Noé Lew MD Primary Care Provider [phone] Source Comments [facility],non-owned Affiliates and Associated Physician Practices is amultiple site organization consisting of ambulatory clinics and hospital sitesin [place], [place], [place] and [place]. This disclosure is being madepursuant to the Care Everywhere program and may not contain all information available regarding this patient. Last updated 18.[facility] Encounters Date Type Department Care Team Description 09/07/2024 Travel 09/07/2024 10:00 AM EXPERIMENTAL AIRCRAFT MECHANIC Office Visit [facility] - Rheumatology [facility] [place] [id number] Gaby Lion MD Ribonucleoprotein antibody positive (Primary Dx) 08/26/2024 Travel 07/04/2024 3:41 PM EXPERIMENTAL AIRCRAFT MECHANIC - 07/04/2024 11:59 PM EXPERIMENTAL AIRCRAFT MECHANIC Hospital Encounter [facility] Imaging Services - [facility] Scan [facility] [place] [address] Discharge Disposition: Home or Self Care from Last 3 Months Allergies Active Allergy Reactions Criticality Noted Date Comments Codeine Anaphylaxis High 09/23/2008 Contrast-Iodinated Agents For Ct/Other Nausea and/or Vomiting 05/16/2023 Coumadin Rash High 09/23/2008 Demerol Anxiety Medium 09/23/2008 Erythromycin Rash Medium 09/23/2008 Iodine Unknown 07/03/2022 Latex Rash Medium 06/17/2009 Contact; bandaids and condoms Lavender Oil Shortness of Breath High 07/03/2022 Methocarbamol High 09/23/2008 Naproxen Unknown 02/18/2003 Other Urticaria Medium 09/24/2008 IVP dye Medications * Be aware that medications may not be up to date on this document. Alwaysverify current medications with the patient. Medication Sig Dispensed Refills Start Date End Date Status vitamin D, ergocalciferol, (Drisdol) 1.25 MG (32566 UT) capsule 1 (one) capsule every 7 days 06/25/2024 Active ibuprofen (MOTRIN) 800 MG tablet Take 1 Tab by mouth 3 times daily as needed for Pain. 20 0 11/20/2008 5 Discontinue d(List Clean-Up) metFORMIN (GLUCOPHAGE) 1000 MG tablet Take 1 (one) tablet by mouth 2 times daily with morning and evening meal 5 Discontinue d(List Clean-Up) buPROPion SR 12hr (Wellbutrin-SR) 150 MG tablet bupropion HCl SR 150 mg tablet,12 hr sustained-release 5 Discontinue d(List Clean-Up) cyclobenzaprine (Flexeril) 10 MG tablet cyclobenzaprine 10 mg tablet 5 Discontinue d(List Clean-Up) FLUoxetine (PROzac) 40 MG capsule 06/24/2022 5 Discontinue d(List Clean-Up) lisinopril (Prinivil; Zestril) 10 MG tablet lisinopril 10 mg tablet 5 Discontinue d(List Clean-Up) topiramate (Topamax) 100 MG tablet 06/24/2022 5 Discontinue d(List Clean-Up) furosemide (Lasix) 20 MG tablet Take 1 (one) tablet by mouth once daily 09/03/2022 5 Discontinue d(List Clean-Up) pantoprazole EC (Protonix) 40 MG tablet 11/22/2022 5 Discontinue d(List Clean-Up) albuterol HFA (Proventil; Ventolin; Proair) 108 (90 Base) MCG/ACT inhaler 11/14/2022 5 Discontinue d(List Clean-Up) tiZANidine (Zanaflex) 4 MG tablet once daily 01/01/2023 5 Discontinue d(List Clean-Up) loratadine (Claritin) 10 MG tablet once daily 12/31/2022 5 Discontinue d(List Clean-Up) Active Problems Problem Noted Date Diagnosed Date Right renal stone 10/05/2022 Cellulitis 01/07/2014 Leg swelling 01/06/2014 Fall from other slipping, tripping, or stumbling 11/20/2008 Social History Tobacco Use Types Packs/Day Years Used Date Smoking Tobacco: Former Cigarettes 1 40 0 03/15/1973 - 03/15/2013 Alcohol Use Standard Drinks/Week Comments No 0 (1 standard drink = 0.6 oz pur e alcohol) AUDIT-C Answer Date Recorded Q1: How often do you have a drink containing alc ohol? Monthly or less 08/22/2022 Q2: How many drinks containi ng alcohol do you have on a typical day when you are drinking? 1 or 2 08/22/2022 Q3: How often do you have si x or more drinks on one occasion? Never 08/22/2022 PHQ-2 Answer Date Recorded Patient Health Questionnaire-2 Score 2 09/07/2024 Sex and Gender Information Value Date Recorded Sex Assigned at Female 07/19/2022 2:59 PM EXPERIMENTAL AIRCRAFT MECHANIC Gender Identity Female 07/19/2022 2:59 PM EXPERIMENTAL AIRCRAFT MECHANIC Sexual Orientation Straight 07/19/2022 2: 59 PM EXPERIMENTAL AIRCRAFT MECHANIC Travel History Travel Start Travel End [place] 09/07/2024 09/07/2024 Last Filed Vital Signs Vital Sign Reading Time Taken Comments Blood Pressure 151/94 09/07/2024 9:55 AM EXPERIMENTAL AIRCRAFT MECHANIC Pulse 90 09/07/2024 9:55 AM EXPERIMENTAL AIRCRAFT MECHANIC Temperature 36.6 ??C (97.9 ??F) 09/07/2024 9:55 AM CS T Respiratory Rate 14 05/16/2023 11:17 AM CDT Oxygen Saturation 92% 09/07/2024 9:55 AM EXPERIMENTAL AIRCRAFT MECHANIC Inhaled Oxygen Concentration - - Weight 150.1 kg (331 lb) 09/07/2024 9:55 AM EXPERIMENTAL AIRCRAFT MECHANIC Height 165.1 cm (5' 5 ) 09/07/2024 9:55 AM EXPERIMENTAL AIRCRAFT MECHANIC Body Mass Index 55.08 09/07/2024 9:55 AM EXPERIMENTAL AIRCRAFT MECHANIC Functional Status Functional Status Response Date of Assess ment Is person deaf or have serious hearing difficult y? No 01/06/2014 Is person blind or have serious difficulty seein g? No 01/06/2014 Does person have serious dif ficulty walking/climbing stairs? No 01/06/2014 Does person have difficulty dressing/bathing? No 01/06/2014 Does person have difficulty doing errands alone? No 01/06/2014 Cognitive Status Response Date of Assessm ent Does person have difficulty concentrating/remembering/making decisions? No 01/06/2014 Plan of Treatment Upcoming Encounters Date Type Department Care Team (Late st Contact Info) Description 05/06/2025 10:00 AM CDT Office Visit [facility] - Urology [address], [address] [place] [phone] Janny Torres MD [address] [place] [phone] Medical Devices Implanted Type Area Electronic Warfare Technician Device Identifier Shelf Expiration Date Model / Serial / Lot Stent Uret 6fr 22-30cm Pgtl Crv Tpr Tip Implanted:Qty: 1 on 10/05/2022 by Janny Torres MD at [facility][note 3] Right: [employer] 06/24/2025 [id number] / / [id number] Procedures Procedure Name Priority Date/Time Associated Diagnosis Comments CT ABDOMEN PELVIS W CONTRAST Routine 07/04/2024 4:27 PM EXPERIMENTAL AIRCRAFT MECHANIC Abdominal pain, unspecified abdominal location CREATININE - POCT INTERFACED Routine 07/04/2024 4:06 PM EXPERIMENTAL AIRCRAFT MECHANIC BASIC METABOLIC PANEL (CALCIUM TOTAL) TEQUILA 05/16/2023 8:31 AM CDT Right renal stone from Last 3 Months or Most Recently Relevant to Health Maintenance Results * CT Abdomen Pelvis W Contrast (07/04/2024 4:27 PM EXPERIMENTAL AIRCRAFT MECHANIC) Anatomical Region Laterality Modality Abdomen, Pelvis Computed Tomogra phy 07/05/2024 9:07 AM EXPERIMENTAL AIRCRAFT MECHANIC Impressions 07/05/2024 9:25 AM EXPERIMENTAL AIRCRAFT MECHANIC IMPRESSION: 1.Hepatomegaly with steatosis 2.Multiple ventral hernias as described. No bowel obstruction. 3.Decreased collection within the right kidney. Follow-up ultrasound recommended. 4.Nonobstructing left renal calculi 5.Hiatal hernia 6.Right adnexal cyst 7.Cardiomegaly > Interpreting Provider: Deacon Reyna MD on 07/05/2024 9:25 AM Narrative 07/05/2024 9:25 AM EXPERIMENTAL AIRCRAFT MECHANIC CT ABDOMEN WITH CONTRAST CT PELVIS WITH CONTRAST INDICATION: Abdominal pain. Ventral hernia. TECHNIQUE: 5 mm images through the abdomen and pelvis with oral and intravenous contrast. ?? 90 cc Isovue-370. One or more of the following CT dose reduction techniques were utilized: *Automated exposure control (AEC) *Adjustment of mA and/or kV according to patient size -Use of iterative reconstruction technique -CT scan done according to ALARA or ALARA/IMAGE GENTLY COMPARISON: 04/26/2023 FINDINGS: CT ABDOMEN Left lower lobe atelectasis is present. The heart size is enlarged. There is diffuse fatty infiltration to the liver. The liver measures 21 cm. There is no intrahepatic duct dilation. Surgical clips overlie the gallbladder fossa. Postoperative changes surround the stomach. There is a hiatal hernia. The spleen is unremarkable. Visualized pancreas is unremarkable. The adrenal glands are not enlarged. Since the prior examination the complex fluid collection at the right kidney has decreased. There remains a low-attenuation peripheral cortical collection or cystic lesion on series 4 image 41 now measuring 4.85 x 1.76 cm. Follow-up ultrasound would be of further use to characterize. Calcifications in the lower pole the left kidney are stable. There is no obstructive uropathy. Vascular calcifications are seen. No abdominal aortic aneurysm is present. In the upper abdomen on series 4 image 20 there is a ventral hernia with defect measuring 2.61 cm. This contains mostly fat. Just inferior and lateral to this on the left is a ventral hernia on image 23 with the defect measuring 3.6 cm. This contains mostly fat. This is similar to prior. Just inferior to this is a larger ventral hernia on image 35. The defect measures approximately 9.57 cm and contains nonobstructed bowel and fat. Enteric sutures are seen within portions of the bowel. Scattered stool is present throughout the colon. CT PELVIS: Right adnexal cyst on series 4 image 61 measures 3.19 x 2.97 cm. Previously this measured up to 3.4 cm. The uterus is intact. There is no free fluid. Urinary bladder is partially distended. There are multilevel degenerative changes of the spine. Superficial varicosities are seen in the right inguinal region. Procedure Note Deacon Reyna MD - 07/05/[address] CT [address] WITH CONTRAST CT PELVIS WITH CONTRAST INDICATION: Abdominal pain. Ventral hernia. TECHNIQUE: 5 mm images through the abdomen and pelvis with oral and intravenous contrast. 90 cc Isovue-370. One or more of the following CT dose reduction techniques were utilized: *Automated exposure control (AEC) *Adjustment of mA and/or kV according to patient size -Use of iterative reconstruction technique -CT scan done according to ALARA or ALARA/IMAGE GENTLY COMPARISON: 04/26/2023 FINDINGS: CT ABDOMEN Left lower lobe atelectasis is present. The heart size is enlarged. There is diffuse fatty infiltration to the liver. The liver measures 21cm. There is no intrahepatic duct dilation. Surgical clips overlie the gallbladder fossa. Postoperative changes surround the stomach. There is a hiatal hernia. The spleen is unremarkable. Visualized pancreas is unremarkable. The adrenal glands are not enlarged. Since the prior examination the complex fluid collection at the right kidney has decreased. There remains a low-attenuation peripheralcortical collection or cystic lesion on series 4 image 41 now measuring 4.85 x1.76 cm. Follow-up ultrasound would be of further use to characterize. Calcifications in the lower pole the left kidney are stable. There is no obstructive uropathy. Vascular calcifications are seen. No abdominal aortic aneurysm ispresent. In the upper abdomen on series 4 image 20 there is a ventral hernia with defect measuring 2.61 cm. This contains mostly fat. Just inferior and lateral to this on the left is a ventral hernia on image 23 with thedefect measuring 3.6 cm. This contains mostly fat. This is similar to prior.Just inferior to this is a larger ventral hernia on image 35. The defect measures approximately 9.57 cm and contains nonobstructed bowel and fat. Enteric sutures are seen within portions of the bowel. Scattered stool is present throughout the colon. CT PELVIS: Right adnexal cyst on series 4 image 61 measures 3.19 x 2.97 cm.Previously this measured up to 3.4 cm. The uterus is intact. There is no freefluid. Urinary bladder is partially distended. There are multilevel degenerative changes of the spine. Superficial varicosities are seen in the right inguinal region. IMPRESSION: 1.Hepatomegaly with steatosis 2.Multiple ventral hernias as described. No bowel obstruction. 3.Decreased collection within the right kidney. Follow-up ultrasound recommended. 4.Nonobstructing left renal calculi 5.Hiatal hernia 6.Right adnexal cyst 7.Cardiomegaly > Interpreting Provider: Deacon Reyna MD on 07/05/2024 9:[address] ORDERABLES * (ABNORMAL) CREATININE - POCT INTERFACED (07/04/2024 4:06 PM EXPERIMENTAL AIRCRAFT MECHANIC) Creatinine POCT 0.86 0.70 - 1.20 mg/dL 07/04/2024 4:14 PM EXPERIMENTAL AIRCRAFT MECHANIC [facility] eGFR 73(L) >=90 mL/min/1.7 3 m2 07/04/2024 4:14 PM EXPERIMENTAL AIRCRAFT MECHANIC [facility] Blood BLOOD SPECIMEN / Unknown 07/04/2024 4:06 PM EXPERIMENTAL AIRCRAFT MECHANIC 07/04/2024 4:14 PM EXPERIMENTAL AIRCRAFT MECHANIC Provider Unknown LAB - POINT OF CARE ORDERABLES Performing Organization Address City/State/[facility] Co de Phone Number [facility] [address] [place] [phone] * (ABNORMAL) BASIC METABOLIC PANEL (CALCIUM TOTAL) (05/16/2023 8:31 AM CDT) Glucose 107(H) 70 - 105 mg/dL 05/16/2023 8:55 AM CDT [facility] Sodium 141 136 - 145 mmol/L 05/16/2023 8:55 AM CDT [facility] Potassium 4.0 3.5 - 5.1 mmol/L 05/16/2023 8:55 AM CDT [facility] Chloride 102 98 - 107 mmol/L 05/16/2023 8:55 AM CDT [facility] CO2 29 22 - 29 mmol/L 05/16/2023 8:55 AM CDT [facility] Calcium 9.4 8.4 - 10.4 mg/dL 05/16/2023 8:55 AM CDT [facility] Anion Gap 10 6 - 16 mmol/L 05/16/2023 8:55 AM CDT [facility] BUN 20 7 - 26 mg/dL 05/16/2023 8:55 AM CDT [facility] Creatinine 1.37(H) 0.57 - 1.11 mg/dL 05/16/2023 8:55 AM CDT [facility] eGFR by CKD-EPI 42(L) >=90 mL/min/1.7 3 m2 05/16/2023 8:55 AM CDT [facility] Blood BLOOD SPECIMEN / Unknown Venipuncture / Unknown 05/16/2023 8:31 AM CDT 05/16/2023 8:38 AM CDT Chan Sarkar MD LAB - CHEMISTRY [facility] Address City/State/ZIP Co de Phone Number [facility] [address] [place] [address] from Last 3 Months or Most Recently Relevant to Health Maintenance Advance Directives * Full Code (Latest Code Status on File) Date Activated Date Inactivated Comments 10/05/2022 2:55 PM 10/06/2022 3:16 PM * Full Code Date Activated Date Inactivated Comments 01/06/2014 10:09 PM 01/10/2014 2:39 PM Care Teams Retread Mold Operator Relationship Specialty Start Date End Date Noé Lew MD [address] [place] [phone] PCP - General Internal Medicine 07/04/24 Janny Torres MD [address] [place] [address] [address] [place] [phone] Physician Urology 05/07/24
--- OUTSIDE RECORDS SUMMARY | 2024-09-08 14:28 | XMS_ITS | Encounter Summary ---
Author Organization [facility] Address [address] [place] [address] Care Team Providers Care Primer Waterproofing Machine Adjuster Name Role Phone Martha Arriaga MD Primary Care Provid er Encounter Details Date Type Department Care Team (Late st Contact Info) Description 10/30/2001 Outpatient Historical [facility] Internal Medicine [facility] [place] [facility] [address] [place] [phone] Cheikh Tsang MD [address] [facility] [address] [place], [place] [id number] Social History Tobacco Use Types Packs/Day Years Used Date Smoking Tobacco: Never Assessed Comments Unknown Sex and Gender Information Value Date Recorded Sex Assigned at Not on file Legal Sex Female 3:23 AM EXTERNAL AUDITOR Gender Identity Not on file Sexual Orientation Not on file documented as of this encounter Plan of Treatment Not on file documented as of this encounter Visit Diagnoses Not on filedocumented in this encounter Care Teams Primer Waterproofing Machine Adjuster Relationship Specialty Start Date End Date Martha Arriaga MD PCP - General Internal Medicine 05/10/20 documented as of this encounter
--- OUTSIDE RECORDS SUMMARY | 2024-09-08 14:28 | XMS_ITS | Encounter Summary ---
Author Organization [facility] Address [address] [place] [address] Care Team Providers Care Customer Success Associate Name Role Phone Martha Arriaga MD Primary Care Provid er Encounter Details Date Type Department Care Team (Late st Contact Info) Description 04/26/2005 Outpatient Historical [facility] - 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
--- OUTSIDE RECORDS SUMMARY | 2024-09-08 14:28 | XMS_ITS | Encounter Summary ---
Author Organization [facility] Address 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
--- OUTSIDE RECORDS SUMMARY | 2024-09-08 14:28 | XMS_ITS | Encounter Summary ---
[facility] Address [address] [place] [address] Care Team Providers Care Leader Assembler Name Role Phone Martha Arriaga MD Primary Care Provid er Encounter Details Date Type Department Care Team (Latest Contact Info) Description 12/22/2004 Outpatient Historical [facility] [address] [place] [address] Luis Carlos Saldaña OPEN WOUND KNEE/LEG-COMPL (Primary Dx) Social History Tobacco Use Types Packs/Day Years Used Date Smoking Tobacco: Never Assessed Comments Unknown Sex and Gender Information Value Date Recorded Sex Assigned at Not on file 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
--- OUTSIDE RECORDS SUMMARY | 2024-09-08 14:28 | XMS_ITS | Clinical Summary ---
Author Organization [facility] Address [address] [place] [address] Care Team Providers Care Winding Department Supervisor Name Role Phone Janny Torres MD Unavailable [phone] Noé Lew MD Primary Care Provider [phone] Source Comments [facility],non-owned Affiliates and Associated Physician Practices is amultiple site organization consisting of ambulatory clinics and hospital sitesin [place], [place], [place] and [place]. This disclosure is being madepursuant to the Care Everywhere program and may not contain all information available regarding this patient. Last updated 18.[facility] Allergies Active Allergy Reactions Criticality Noted Date [...] Status vitamin D, ergocalciferol, (Drisdol) 1.25 MG (33713 UT) capsule 1 (one) capsule every 7 [...] from other slipping, tripping, or stumbling 11/20/2008 Encounters Date Type Department Care Team Description 09/07/2024 10:00 AM CHORUS MASTER Office Visit [facility] - Rheumatology [address], [place] [address] Gaby Lion MD Ribonucleoprotein antibody positive (Primary Dx) 09/07/2024 Travel 08/26/2024 Travel 07/04/2024 3:41 PM CHORUS MASTER - 07/04/2024 11:59 PM CHORUS MASTER Hospital Encounter [facility] Health Imaging Services - CT Scan [facility] [place] [address] Discharge Disposition: Home or Self Care from Last 3 Months Family History Medical History Relation Name Comments Cancer Brother Diabetes Brother Hypertension Brother Diabetes Father Diabetes Maternal Grandfather Hypertension Maternal Grandfather Cancer Maternal Grandmother Diabetes Maternal Grandmother Hypertension Maternal Grandmother Stroke Maternal Grandmother Hypertension Maternal Uncle Bipolar Disorder Other Diabetes Paternal Grandfather Hypertension Paternal Grandfather Diabetes Paternal Grandmother Hypertension Paternal Grandmother Heart Failure Paternal Uncle Asthma Sister Migraine Sister Relation Name Status Comments Brother Father Maternal Grandfather Maternal Grandmother Maternal Uncle Other Paternal Grandfather Paternal Grandmother Paternal Uncle Sister Social History Tobacco Use Types Packs/Day Years [...] Sex Assigned at Female 07/19/2022 2:59 PM CHORUS MASTER Gender Identity Female 07/19/2022 2:59 PM CHORUS MASTER Sexual Orientation Straight 07/19/2022 2: 59 PM CHORUS MASTER Travel History Travel Start Travel End [place] 09/07/2024 09/07/2024 Last Filed Vital Signs Vital Sign Reading Time Taken Comments Blood Pressure 151/94 09/07/2024 9:55 AM CHORUS MASTER Pulse 90 09/07/2024 9:55 AM CHORUS MASTER Temperature 36.6 ??C (97.9 ??F) 09/07/2024 9:55 AM CS T Respiratory Rate 14 05/16/2023 11:17 AM CDT Oxygen Saturation 92% 09/07/2024 9:55 AM CHORUS MASTER Inhaled Oxygen Concentration - - Weight 150.1 kg (331 lb) 09/07/2024 9:55 AM CHORUS MASTER Height 165.1 cm (5' 5 ) 09/07/2024 9:55 AM CHORUS MASTER Body Mass Index 55.08 09/07/2024 9:55 AM CHORUS MASTER Plan of Treatment Upcoming Encounters Date Type Department Care Team (Late st Contact Info) Description 05/06/2025 10:00 AM CDT Office Visit [facility] - Urology [address], [address] [place] [address] Janny Torres MD [address] [place] [phone] Health Maintenance Due Date Last Done Comments BONE DENSITY TESTING 1954 COLOGUARD (AGES 45-75) - COLON CA SCREENING 1954 COLON MONITORING 1954 COLONOSCOPY - COLON CA SCREENING 1954 CT COLONOGRAPHY - COLON CA SCREENING 1954 Colorectal Cancer Screening 1954 FIT - COLON CA SCREENING 1954 FLEX SIG - COLON CA SCREENING 1954 LIPID TESTING 1954 HEPATITIS C SCREENING 03/11/1972 DTAP/TDAP/TD VACCINES (1 - Tdap) 1973 LUNG CANCER SCREENING 2004 PNEUMOCOCCAL VACCINE 50+ (1 of 1 - PCV) 2004 ZOSTER VACCINE (1 of 2) 2004 Respiratory Syncytial Virus (RSV) Vaccine Pt: or over 60 yrs (1 - Risk 60-74 years 1-dose series) 2014 MAMMOGRAM 05/10/2022 05/10/2020, 05/17/2017 COVID-19 VACCINE (1 - season) 2024 INFLUENZA VACCINE (#1) 2024 MEDICARE AWV ? CALENDAR YEAR 2024 SCREENING FOR DIABETES 05/16/2026 3, 05/03/2023, 10/05/2022, Additional history exists DEPRESSION SCREENING Completed 09/07/2024 HEPATITIS B VACCINE Aged Out No longe r eligible based on patient's age to complete this topic HIB VACCINE Aged Out No longer eligi ble based on patient's age to complete this topic HPV VACCINE Aged Out No longer eligi ble based on patient's age to complete this topic MENINGOCOCCAL (Group B) VACCINE Aged Out No longer eligible based on patient's age to complete this topic MENINGOCOCCAL VACCINE Aged Out No guilherme yvonne eligible based on patient's age to complete this topic Medical Devices Implanted Type Area Tube Sorter Device Identifier Shelf Expiration Date Model / Serial / Lot Stent Uret 6fr 22-30cm Pgtl Crv Tpr Tip Implanted:Qty: 1 on 10/05/2022 by Janny Torres MD at [facility] Right: [employer]ed 06/24/2025 [id number] / / [id number] Procedures Procedure Name Priority Date/Time Associated Diagnosis Comments CT ABDOMEN PELVIS W CONTRAST Routine 07/04/2024 4:27 PM CHORUS MASTER Abdominal pain, unspecified abdominal location CREATININE - POCT INTERFACED Routine 07/04/2024 4:06 PM CHORUS MASTER BASIC METABOLIC PANEL (CALCIUM TOTAL) TEQUILA 05/16/2023 8:31 AM CDT Right renal stone from Last 3 Months or Most Recently Relevant to Health Maintenance Results * CT Abdomen Pelvis W Contrast (07/04/2024 4:27 PM CHORUS MASTER) Anatomical Region Laterality Modality Abdomen, Pelvis Computed Tomogra phy 07/05/2024 9:07 AM CHORUS MASTER Impressions 07/05/2024 9:25 AM CHORUS MASTER IMPRESSION: 1.Hepatomegaly with steatosis 2.Multiple ventral hernias as described. No bowel obstruction. 3.Decreased collection within the right kidney. Follow-up ultrasound recommended. 4.Nonobstructing left renal calculi 5.Hiatal hernia 6.Right adnexal cyst 7.Cardiomegaly > Interpreting Provider: Deacon Reyna MD on 07/05/2024 9:25 AM Narrative 07/05/2024 9:[address] ABDOMEN WITH CONTRAST CT PELVIS WITH [...] CREATININE - POCT INTERFACED (07/04/2024 4:06 PM CHORUS MASTER) Creatinine POCT 0.86 0.70 - 1.20 mg/dL 07/04/2024 4:14 PM CHORUS MASTER [facility] eGFR 73(L) >=90 mL/min/1.7 3 m2 07/04/2024 4:14 PM CHORUS MASTER [facility] Blood BLOOD SPECIMEN / Unknown 07/04/2024 4:06 PM CHORUS MASTER 07/04/2024 4:14 PM CHORUS MASTER Provider Unknown LAB - POINT OF CARE ORDERABLES Performing Organization Address City/State/[facility] Co de Phone Number [facility] [address] [place] [address] * (ABNORMAL) BASIC METABOLIC PANEL (CALCIUM TOTAL) (05/16/2023 8:31 AM CDT) Glucose 107(H) 70 - 105 mg/dL 05/16/2023 8:55 AM CDT [facility] Sodium 141 136 - 145 mmol/L 05/16/2023 8:55 AM CDT [facility] Potassium 4.0 3.5 - 5.1 mmol/L 05/16/2023 8:55 AM CDT [facility] Chloride 102 98 - 107 mmol/L 05/16/2023 8:55 AM CDT [facility] CO2 29 22 - 29 mmol/L 05/16/2023 8:55 AM CDT [facility] Calcium 9.4 8.4 - 10.4 mg/dL 05/16/2023 8:55 AM CDT [facility] Anion Gap 10 6 - 16 mmol/L 05/16/2023 8:55 AM CDT [facility] BUN 20 7 - 26 mg/dL 05/16/2023 8:55 AM CDT [facility] Creatinine 1.37(H) 0.57 - 1.11 mg/dL 05/16/2023 8:55 AM CDT [facility] eGFR by CKD-EPI 42(L) >=90 mL/min/1.7 3 m2 05/16/2023 8:55 AM CDT [facility] Blood BLOOD SPECIMEN / Unknown Venipuncture / Unknown 05/16/2023 8:31 AM CDT 05/16/2023 8:38 AM CDT Chan Sarkar MD LAB - CHEMISTRY KRISTINAE MAHNAZ [facility] Organization Address City/State/ZIP Co de Phone Number [facility] [address] [phone] from Last 3 Months or Most Recently Relevant to Health Maintenance Advance Directives * Full Code (Latest Code Status on File) Date Activated Date Inactivated Comments 10/05/2022 2:55 PM 10/06/2022 3:16 PM * Full Code Date Activated Date Inactivated Comments 01/06/2014 10:09 PM 01/10/2014 2:39 PM Care Teams Winding Department Supervisor Relationship Specialty Start Date End Date Noé Lew MD [address] [place] [phone] PCP - General Internal Medicine 07/04/24 Janny Torres MD [address] [place] [phone] Physician Urology 05/07/24
--- OUTSIDE RECORDS SUMMARY | 2024-09-08 14:28 | XMS_ITS | Encounter Summary ---
Author Organization [facility] Address [address] [place] [address] Care Team Providers Care Termite Exterminator Helper Name Role Phone Martha Arriaga MD Primary Care Provid er Encounter Details Date Type Department Care Team (Late st Contact Info) Description 12/22/2004 Outpatient Historical [facility] [address] [place] [phone] [place] [address] [place] [address] Social History Tobacco Use Types Packs/Day Years Used Date Smoking Tobacco: Never Assessed Comments Unknown Sex and Gender Information Value Date Recorded Sex Assigned at Not on file 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
--- OUTSIDE RECORDS SUMMARY | 2024-09-08 14:28 | XMS_ITS | Encounter Summary ---
Author Organization [facility] Address [address] [place] [address] Care Team Providers Care Proc Tech Name Role Phone Martha Arriaga MD Primary Care Provid er Encounter Details Date Type Department Care Team (Late st Contact Info) Description 10/27/2002 Outpatient Historical [facility] Internal Medicine - [place] [address] [place] [phone] [place] Sal[place]ña [place] [address] [place] [address] Social History Tobacco Use Types Packs/Day Years Used Date Smoking Tobacco: Never Assessed Comments Unknown Sex and Gender Information Value Date Recorded Sex Assigned at Not on file 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
--- OUTSIDE RECORDS SUMMARY | 2024-09-08 14:28 | XMS_ITS | Patient Health Summary ---
Author Organization [facility] Address [address] [place] [address] Care Team Providers Care Embedded Firmware Developer Name Role Phone Janny Torres MD Unavailable [phone] Noé Lew MD Primary Care Provider [phone] Note from [facility],non-owned Affiliates and Associated Physician Practices is amultiple site organization consisting of ambulatory clinics and hospital sitesin [place], [place], [place] and [place]. This disclosure is being madepursuant to the Care Everywhere program and may not contain all information available regarding this patient. Last updated 18.[facility] Allergies * Codeine(Anaphylaxis) -High Criticality * Contrast-Iodinated Agents For Ct/Other(Nausea and/or Vomiting) * Coumadin(Rash) -High Criticality * Demerol(Anxiety) -Medium Criticality * Erythromycin(Rash) -Medium Criticality * Iodine(Unknown) * Latex(Rash) -Medium Criticality * Lavender Oil(Shortness of Breath) -High Criticality * Methocarbamol-High Criticality * Naproxen(Unknown) * Other(Urticaria) -Medium Criticality * Methocarbamol(Unknown),Inactive Medications * Be aware that medications may not be up to date on this document. Alwaysverify current medications with the patient. * vitamin D, ergocalciferol, (Drisdol) 1.25 MG (11349 UT) capsule(Started 06/25/2024) 1 (one) capsule every 7 days Ended Medications* ibuprofen (MOTRIN) 800 MG tablet(Started 11/20/2008) (Discontinued) Take 1 Tab by mouth 3 times daily as needed for Pain. * metFORMIN (GLUCOPHAGE) 1000 MG tablet(Discontinued) Take 1 (one) tablet by mouth 2 times daily with morning and evening meal * buPROPion SR 12hr (Wellbutrin-SR) 150 MG tablet(Discontinued) bupropion HCl SR 150 mg tablet,12 hr sustained-release * cyclobenzaprine (Flexeril) 10 MG tablet(Discontinued) cyclobenzaprine 10 mg tablet * FLUoxetine (PROzac) 40 MG capsule(Started 06/24/2022)(Discontinued) * lisinopril (Prinivil; Zestril) 10 MG tablet(Discontinued) lisinopril 10 mg tablet * topiramate (Topamax) 100 MG tablet(Started 06/24/2022)(Discontinued) * furosemide (Lasix) 20 MG tablet(Started 09/03/2022)(Discontinued) Take 1 (one) tablet by mouth once daily * pantoprazole EC (Protonix) 40 MG tablet(Started 11/22/2022)(Discontinued) * albuterol HFA (Proventil; Ventolin; Proair) 108 (90 Base) MCG/ACT inhaler (Started 11/14/2022)(Discontinued) * tiZANidine (Zanaflex) 4 MG tablet(Started 01/01/2023)(Discontinued) once daily * loratadine (Claritin) 10 MG tablet(Started 12/31/2022)(Discontinued) once daily Active Problems Problem Noted Date Diagnosed Date [...] Sex Assigned at Female 07/19/2022 2:59 PM [facility] Gender Identity Female 07/19/2022 2:59 PM [facility] Sexual Orientation Straight 07/19/2022 2: 59 PM [facility] Travel History Travel Start Travel End [place] 09/07/2024 09/07/2024 Last Filed Vital Signs Vital Sign Reading Time Taken Comments Blood Pressure 151/94 09/07/2024 9:55 AM [facility] Pulse 90 09/07/2024 9:55 AM [facility] Temperature 36.6 ??C (97.9 ??F) 09/07/2024 9:55 AM CS T Respiratory Rate 14 05/16/2023 11:17 AM CDT Oxygen Saturation 92% 09/07/2024 9:55 AM [facility] Inhaled Oxygen Concentration - - Weight 150.1 kg (331 lb) 09/07/2024 9:55 AM [facility] Height 165.1 cm (5' 5 ) 09/07/2024 9:55 AM [facility] Body Mass Index 55.08 09/07/2024 9:55 AM [facility] Medical Devices Implanted Type Area Java Programmer Device Identifier Shelf Expiration Date Model / Serial / Lot Stent Uret 6fr 22-30cm Pgtl Crv Tpr Tip Implanted:Qty: 1 on 10/05/2022 by Janny Torres MD at [facility] Right: U[employer] 06/24/2025 [id number] / / [id number] Procedures * CT ABDOMEN PELVIS W CONTRAST(Performed 07/04/2024) Performed for Abdominal pain, unspecified abdominal location * CREATININE - POCT INTERFACED(Performed 07/04/2024) * PTH INTACT(Performed 05/07/2024) * XR ABDOMEN KUB(Performed 05/01/2024) Performed for Calcium oxalate kidney stones * IR FISTULA OR SINUS TRACT STUDY(Performed 06/03/2023) Performed for Right renal stone * CT DRAIN W CATH PLACEMENT(Performed 05/16/2023) Performed for Acquired renal cyst of right kidney * CULTURE FLUID+GRAM STAIN(Performed 05/16/2023) Performed for Right renal stone * CULTURE FUNGUS OTHER+FUNGUS SMEAR(Performed 05/16/2023) Performed for Right renal stone * CULTURE ANAEROBE(Performed 05/16/2023) Performed for Right renal stone * CULTURE AFB+SMEAR(Performed 05/16/2023) Performed for Right renal stone * PT-INR(Performed 05/16/2023) Performed for Right renal stone * CBC W AUTO DIFFERENTIAL(Performed 05/16/2023) Performed for Right renal stone * BASIC METABOLIC PANEL (CALCIUM TOTAL)(Performed 05/16/2023) Performed for Right renal stone * BASIC METABOLIC PANEL (CALCIUM TOTAL)(Performed 05/03/2023) Performed for Calcium oxalate kidney stones * URINALYSIS AUTO - POINT OF CARE (AMB) STL(Performed 05/03/2023) Performed for Calcium oxalate kidney stones * CT RENAL STONE(Performed 04/26/2023) Performed for Right renal stone * URINALYSIS AUTO - POINT OF CARE (AMB) STL(Performed 12/21/2022) Performed for Calcium oxalate kidney stones * US RETROPERITONEAL COMPLETE(Performed 12/19/2022) Performed for Encounter for removal of ureteral stent, Calcium oxalate kidney stones * URINALYSIS AUTO - POINT OF CARE (AMB) STL(Performed 10/25/2022) Performed for Encounter for removal of ureteral stent * CARDIAC RHYTHM STRIP ORDER(Performed 10/08/2022) * CBC W AUTO DIFFERENTIAL(Performed 10/05/2022) Performed for Right renal stone * PT-INR(Performed 10/05/2022) Performed for Right renal stone * FL LEONELA SURGERY(Performed 10/05/2022) Performed for Pain * STONE ANALYSIS QUANT(Performed 10/05/2022) Performed for Calculus of ureter * IN PERCUT REMV KID STONE,2+ CM(Performed 10/05/2022) * IR PERC NEPHROSTOMY RIGHT(Performed 10/05/2022) Performed for Kidney stones * EKG 12-LEAD(Performed 10/05/2022) Performed for Right renal stone * TYPE + SCREEN PANEL(Performed 10/05/2022) * CT ABDOMEN PELVIS WO CONTRAST(Performed 10/05/2022) Performed for Kidney stone * BLOOD TYPE VERIFICATION(Performed 10/05/2022) * PT-INR(Performed 10/05/2022) Performed for Kidney stone * CBC W AUTO DIFFERENTIAL(Performed 10/05/2022) Performed for Kidney stone * BASIC METABOLIC PANEL (CALCIUM TOTAL)(Performed 10/05/2022) Performed for Kidney stone * GROSS EXAM PATHOLOGY (STL)(Performed 10/05/2022) Performed for Right renal stone, Pain, Calculus of ureter * CARDIAC RHYTHM STRIP ORDER(Performed 08/24/2022) * LARYNGEAL MASK AIRWAY(Performed 08/22/2022) * IN CYSTOSCOPY,REMV CALCULUS,SIMPLE(Performed 08/22/2022) Performed for N20.0 * IN FRAGMENTING OF KIDNEY STONE(Performed 08/22/2022) Performed for N20.0 * CULTURE URINE(Performed 07/04/2022) Performed for Right renal stone * XR ABDOMEN KUB(Performed 07/03/2022) Performed for Right renal stone, Left renal stone * URINALYSIS AUTO - POINT OF CARE (AMB) STL(Performed 07/03/2022) Performed for Right renal stone, Left renal stone * LAB RESULTS ORDER(Performed 01/11/2014) * VANCOMYCIN LEVEL RANDOM(Performed 01/08/2014) * BASIC METABOLIC PANEL (CALCIUM TOTAL)(Performed 01/08/2014) * PT PTT PANEL(Performed 01/07/2014) * FL VENOGRAM EXTREMITY UNILAT(Performed 01/07/2014) Performed for Leg swelling * PT PTT PANEL(Performed 01/07/2014) * PT PTT PANEL(Performed 01/07/2014) * CBC W AUTO DIFFERENTIAL(Performed 01/07/2014) * PT PTT PANEL(Performed 01/06/2014) * CBC W AUTO DIFFERENTIAL(Performed 01/06/2014) * VAS RIGHT VENOUS DUPLEX LE(Performed 01/06/2014) Performed for Leg swelling * CULTURE BLOOD(Performed 01/06/2014) * CULTURE BLOOD(Performed 01/06/2014) * PT PTT PANEL(Performed 01/06/2014) * D-DIMER(Performed 01/06/2014) * COMPREHENSIVE METABOLIC PANEL(Performed 01/06/2014) * CBC W MANUAL DIFFERENTIAL(Performed 01/06/2014) * DIFFERENTIAL MANUAL(Performed 01/06/2014) * CARDIAC PROCEDURE ORDER(Performed 06/21/2009) * IR SPINAL INJECTION OR ASPIRATE(Performed 06/20/2009) Performed for Cervical Spondylosis * MRI LUMBAR SPINE WO CONTRAST(Performed 06/06/2009) Performed for Lumbago * MRI SHOULDER RIGHT WO CONTRAST(Performed 05/12/2009) Performed for Pain in Joint, Shoulder Region * MRI CERVICAL SPINE WO CONTRAST(Performed 05/12/2009) Performed for Cervical Spondylosis without Myelopathy * XR SHOULDER MIN 3 VIEWS RIGHT(Performed 04/28/2009) Performed for Shoulder Pain * XR LUMBAR SPINE 4VW OR MORE(Performed 04/28/2009) Performed for LBP (Low Back Pain) * XR ANKLE LEFT 3VW OR MORE(Performed 11/20/2008) Performed for Fall from Other Slipping, Tripping, or Stumbling * XR KNEE LEFT 4VW OR MORE(Performed 11/20/2008) Performed for Fall from Other Slipping, Tripping, or Stumbling * XR FOOT LEFT 3VW OR MORE(Performed 11/20/2008) Performed for Fall from Other Slipping, Tripping, or Stumbling * GROSS + MICRO EXAM(Performed 09/24/2008) * GROSS + MICRO EXAM(Performed 09/24/2008) * CULTURE ANAEROBE(Performed 09/24/2008) * CULTURE WOUND(Performed 09/24/2008) * COMPREHENSIVE METABOLIC PANEL(Performed 09/24/2008) * CBC W AUTO DIFFERENTIAL(Performed 09/24/2008) * CULTURE ANAEROBE(Performed 03/29/2008) * CULTURE FLUID(Performed 03/29/2008) * US GUIDE NEEDLE PLACEMENT(Performed 03/29/2008) Performed for Seroma Complicating a Procedure * GROSS + MICRO EXAM(Performed 01/17/2008) Results * CT Abdomen Pelvis W Contrast (07/04/2024 4:27 PM [facility]) Anatomical Region Laterality Modality Abdomen, Pelvis Computed Tomogra phy 07/05/2024 9:07 AM [facility] Impressions 07/05/2024 9:25 AM [facility] IMPRESSION: 1.Hepatomegaly with steatosis 2.Multiple ventral hernias as described. No bowel obstruction. 3.Decreased collection within the right kidney. Follow-up ultrasound recommended. 4.Nonobstructing left renal calculi 5.Hiatal hernia 6.Right adnexal cyst 7.Cardiomegaly > Interpreting Provider: Kelton Reyna MD on 07/05/2024 9:25 AM Narrative 07/05/2024 9:[address] ABDOMEN WITH CONTRAST CT PELVIS WITH [...] in the right inguinal region. Procedure Note Kelton Reyna MD - 07/05/2024 CT ABDOMEN WITH [...] 6.Right adnexal cyst 7.Cardiomegaly > Interpreting Provider: Kelton Reyna MD on 07/05/2024 9:[address] ORDERABLES * (ABNORMAL) CREATININE - POCT INTERFACED (07/04/2024 4:06 PM [facility]) Creatinine POCT 0.86 0.70 - 1.20 mg/dL 07/04/2024 4:14 PM [facility] eGFR 73(L) >=90 mL/min/1.7 3 m2 07/04/2024 4:14 [address] [facility] Blood BLOOD SPECIMEN / Unknown 07/04/2024 4:06 PM [facility] 07/04/2024 4:14 PM [facility] Provider Unknown LAB - POINT OF CARE ORDERABLES [facility] [place], [place] [id number] * PTH INTACT (05/07/2024 12:54 PM CDT) PTH Intact 57 15 - 65 pg/mL [facility] ACCOUNT BILL 05/07/2024 12:5 4 PM CDT 05/07/2024 Narrative [facility] ACCOUNT BILL - 05/08/2024 10:11 AM CDT Performed at: ??01 - [facility] [address] [place], [place] [id number] Couples Therapist: Danny Lemos PhD, Phone: ??[phone] Janny Torres MD LAB - CHEMISTRY OR DERABLES [facility] ACCOUNT BILL [address] [place] [address] * XR ABDOMEN KUB (05/01/2024 11:08 AM CDT) Only the most recent of2 resultswithin the time period is included. Anatomical Region Laterality Modality Abdomen Radiographic Eda ging 05/01/2024 1:56 PM CDT Impressions 05/01/2024 1:57 PM CDT IMPRESSION: Small calculi overlie the lower pole of the left kidney. > Interpreting Provider: Ally Roberts MD on 05/01/2024 1:57 PM Narrative 05/01/2024 1:57 PM CDT PROCEDURE: ??XR ABDOMEN KUB DATE/TIME OF EXAM: ??05/01/2024 11:08 AM CLINICAL INFORMATION: None relevant/not provided if blank. Indication: N20.0: Calculus of kidney Additional History: COMPARISON: July 03, 2022 FINDINGS: A single view of the abdomen shows 2-3 approximately 3 mm calculi overlying the lower pole of the left kidney. No additional definite renal calculi are seen. There are surgical clips in right and left upper quadrants, present on previous examination. Ureteral stent previously seen on the left has been removed. Bowel gas pattern is benign. Procedure Note Ally Roberts MD - 05/01/2024 PROCEDURE: XR ABDOMEN KUB DATE/TIME OF EXAM: 05/01/2024 11:08 AM CLINICAL INFORMATION: None relevant/not provided if blank. Indication: N20.0: Calculus of kidney Additional History: COMPARISON: July 03, 2022 FINDINGS: A single view of the abdomen shows 2-3 approximately 3 mmcalculi overlying the lower pole of the left kidney. No additional definiterenal calculi are seen. There are surgical clips in right and left upper quadrants, present on previous examination. Ureteral stent previouslyseen on the left has been removed. Bowel gas pattern is benign. IMPRESSION: Small calculi overlie the lower pole of the left kidney. > Interpreting Provider: Ally Roberts MD on 05/01/2024 1:57 PM Janny Torres MD DIAGNOSTIC IMAGING ORDERABLES * IR FISTULA OR SINUS TRACT STUDY (06/03/2023 9:17 AM CDT) Anatomical Region Laterality Modality Abdomen X-Ray Angiograph y 06/03/2023 12:5 7 PM CDT Impressions 06/05/2023 10:23 AM CDT Impression: Fluoroscopy-guided tube check through the existing pigtail drainage catheter in the left lower quadrant showed complete resolution of the abscess cavity without evidence of fistulous connection to adjacent structures. Given these imaging findings and the fact that the patient was symptom-free, the catheter was removed under fluoroscopic guidance. Note: The patient was explained the possibility of recurrence of the abscess/collection. > Interpreting Provider: Angelito Driscoll MD on 06/05/2023 10:23 AM Narrative 06/05/2023 10:23 AM CDT History: History of left lower quadrant abscess status post drain placement. Operators: 1.Angelito Driscoll MD Anesthesia: None Procedure: 1.Fluoroscopy-guided abscessogram/tube check through the existing pigtail drainage catheter in the left lower quadrant. 2.Removal of the existing catheter in the left lower quadrant. Fluoroscopy time: 1.0 minutes Contrast: 5 mL of Isovue 370 Procedure in detail: The procedure, risks, and possible complications were explained to the patient in detail, and informed consent was obtained. The patient was placed supine on the procedure table. Set Up Technician radiograph of the left lower quadrant was obtained which showed the existing pigtail drainage catheter in the left lower quadrant. Contrast was hand injected through the existing catheter and abscessogram/tube check was performed, which demonstrated complete resolution of the previously seen abscess cavity and no evidence of fistulous connection with adjacent structures. Given these imaging findings and the fact that the patient was symptom-free, the decision was made to remove the catheter. The catheter was cut and removed under fluoroscopic guidance. Sterile dressing was applied. The patient tolerated the procedure well and was transferred to the holding area in stable condition. There were no immediate complications associated with the procedure. Procedure Note Angelito Driscoll MD - 06/05/2023 History: History of left lower quadrant abscess status post drain placement. Operators: 1.Angelito Driscoll MD Anesthesia: None Procedure: 1.Fluoroscopy-guided abscessogram/tube check through the existingpigtail drainage catheter in the left lower quadrant. 2.Removal of the existing catheter in the left lower quadrant. Fluoroscopy time: 1.0 minutes Contrast: 5 mL of Isovue 370 Procedure in detail: The procedure, risks, and possible complications were explained to the patient in detail, and informed consent was obtained. The patient was placed supine on the procedure table. Set Up Technician radiograph of the left lower quadrant was obtained which showed the existing pigtail drainagecatheter in the left lower quadrant. Contrast was hand injected through the existing catheter and abscessogram/tube check was performed, which demonstrated complete resolution of the previously seen abscess cavity and no evidence of fistulous connection with adjacent structures. Given these imagingfindings and the fact that the patient was symptom-free, the decision was made to remove the catheter. The catheter was cut and removed under fluoroscopic guidance. Sterile dressing was applied. The patient tolerated the procedure well and [facility]. There were no immediate complicationsassociated with the procedure. Impression: Fluoroscopy-guided tube check through the existing pigtail drainage catheter in the left lower quadrant showed complete resolutionof the abscess cavity without evidence of fistulous connection to adjacent structures. Given these imaging findings and the fact that the patientwas symptom-free, the catheter was removed under fluoroscopic guidance. Note: The patient was explained the possibility of recurrence of the abscess/collection. > Interpreting Provider: Angelito Driscoll MD on 06/05/2023 10:23 AM Janny Torres MD IR ORDERABLES * CT DRAIN W CATH PLACEMENT (05/16/2023 11:05 AM CDT) Anatomical Region Laterality Modality Abdomen Computed Tomogra phy 05/16/2023 2:37 PM CDT Impressions 05/17/2023 4:47 PM CDT Impression: CT-guided placement of an 8 Guyanese pigtail drainage catheter in right renal hematoma, as detailed above. Follow up: The catheter is open for external drainage. Flush the catheter with 10 mL of saline 2 times a day. If the output falls below 5-10 mL/day for three consecutive days, please schedule the patient for an image-guided tube check for possible catheter exchange, repositioning, or removal. I, Dr. Driscoll, was present and performed/supervised the entire procedure. Moderate sedation on this patient was ordered by me, administered intravenously in my presence, and monitored by the procedure nurse as an independent trained observer who was present throughout the procedure. The following parameters were monitored: oxygen saturation, heart rate, blood pressure, and response to care. Intra-service sedation start time was 1027 and end time was 1057 during which I was present. Total physician intra-service sedation time was 30 minutes. For details on pre moderate sedation and post moderate sedation patient evaluation, please review the evaluation forms in [facility]. For details on monitored clinical parameters during the intra-service sedation time, please review the procedure nurse documentation in [facility]. > Interpreting Provider: Angelito Driscoll MD on 05/17/2023 4:47 PM Narrative 05/17/2023 4:47 PM CDT History: Right renal hematoma complicated by Page kidney Operators: 1.Angelito Driscoll MD Anesthesia: 1.Local anesthesia - 10 mL of 1% Lidocaine 2.Intravenous conscious sedation - Versed 2.5 mg and Fentanyl 125 mcg Procedure: 1.Limited noncontrast CT of the abdomen. 2.CT-guided placement of 8 Guyanese pigtail drainage catheter in a subcapsular right renal hematoma. Procedure in detail: The procedure, risks, and possible complications were explained to the patient in detail, and informed consent was obtained. The patient was placed in a prone position on the CT table and a radio-opaque grid was placed over the region of interest. Limited non-contrast CT of the abdomen showed a large evolving subcapsular right renal hematoma. A percutaneous entry site was marked on the skin. The marked site and skin around the region of interest was prepped and draped in sterile fashion. Pre-procedure timeout was performed. Local anesthesia was provided with 1% Lidocaine. A 5 Guyanese co-axial needle system was advanced in stages under CT guidance. Upon aspiration of fluid, the outer-sheath was advanced within the collection. A 0.035 inch guidewire was looped within the collection, and following series of dilatation/exchanges, a 8 Guyanese pigtail drainage catheter was advanced into the collection. The initial aspirate was dark brown, and approximately 100 mL was aspirated. An appropriate amount of aspirate was sent for ordered studies. The catheter was sutured to the skin and connected to a drainage bag to allow further drainage. Post-procedure limited noncontrast CT showed the catheter in satisfactory position. The patient tolerated the procedure well and was transferred to the holding area in stable condition. There were no immediate complications associated with the procedure. Procedure Note Angelito Driscoll MD - 05/17/2023 History: Right renal hematoma complicated by Page kidney Operators: 1.Angelito Driscoll MD Anesthesia: 1.Local anesthesia - 10 mL of 1% Lidocaine 2.Intravenous conscious sedation - Versed 2.5 mg and Fentanyl 125 mcg Procedure: 1.Limited noncontrast CT of the abdomen. 2.CT-guided placement of 8 Guyanese pigtail drainage catheter in a subcapsular right renal hematoma. Procedure in detail: The procedure, risks, and possible complications were explained to the patient in detail, and informed consent was obtained. The patient was placed in a prone position on the CT table and a radio-opaque grid was placed over the region of interest. Limited non-contrast CT of theabdomen showed a large evolving subcapsular right renal hematoma. A percutaneous entry site was marked on the skin. The marked site and skin around the region of interest was prepped and draped in sterile fashion.Pre-procedure timeout was performed. Local anesthesia was provided with 1% Lidocaine. A 5 Guyanese co-axialneedle system was advanced in stages under CT guidance. Upon aspiration offluid, the outer-sheath was advanced within the collection. A 0.035 inchguidewire was looped within the collection, and following series of dilatation/exchanges, a 8 Guyanese pigtail drainage catheter was advanced into the collection. The initial aspirate was dark brown, andapproximately 100 mL was aspirated. An appropriate amount of aspirate was sent for ordered studies. The catheter was sutured to the skin and connected to a drainage bag to allow further drainage. Post-procedure limitednoncontrast CT showed the catheter in satisfactory position. The patient tolerated the procedure well and [facility]. There were no immediate complicationsassociated with the procedure. Impression: CT-guided placement of an 8 Guyanese pigtail drainage catheterin right renal hematoma, as detailed above. Follow up: The catheter is open for external drainage. Flush thecatheter with 10 mL of saline 2 times a day. If the output falls below 5-10mL/day for three consecutive days, please schedule the patient for animage-guided tube check for possible catheter exchange, repositioning, or removal. Santosh, Dr. Driscoll, was present and performed/supervised the entire procedure. Moderate sedation on this patient was ordered by me, administered intravenously in my presence, and [facility] as an independent trained observer who was present throughout the procedure. The following parameters were monitored: oxygen saturation, heart rate, blood pressure, and response to care. Intra-service sedation start time was 1027 and end time was 1057 during which I was present.Total physician intra-service sedation time was 30 minutes. For details on pre moderate sedation and post moderate sedation patient evaluation, please review the evaluation forms in [facility]. For details on monitored clinical parameters during the intra-service sedation time, please review the procedure nurse documentation in [facility]. > Interpreting Provider: Angelito Driscoll MD on 05/17/2023 4:47 PM J[address] Torres MD CT ORDERABLES * CULTURE FLUID+GRAM STAIN (05/16/2023 10:51 AM CDT) Culture No growth TERRELL 05/20/2023 3:14 AM CDT [facility] Gram Stain Light Polymorphonuclear cells 05/20/2023 3:14 AM CDT [facility] Gram Stain No organisms seen 023 3:14 AM CDT [facility] Fluid BODY FLUID SPECIMEN / Unknown Collection / Unknown 05/16/2023 10:51 AM CDT 05/16/2023 12:07 PM CDT Janny Torres MD LAB - MICROBIOLOGY ORDERABLES Performing Organization Address City/[facility]/ZIP Co de Phone Number [facility]Y [address] [place] [address], [facility] [phone] * CULTURE FUNGUS OTHER+FUNGUS SMEAR (05/16/2023 10:49 AM CDT) Culture No fungus isolated TERRELL 06/10/2023 8:16 AM CDT [facility]CRO[facility] Fungus Stain No yeast or hyphae seen 06/10/2023 8:16 AM CDT [facility] MICROBIOLOGY Microbiology ENTIRE KIDNEY / Unknown Collection / Unknown 05/16/2023 10:49 AM CDT 05/16/2023 12:07 PM CDT Janny Torres MD LAB - MICROBIOLOGY ORDERABLES [facility]CROBI[facility] [address] [place] [address], [facility] [phone] * CULTURE AFB+SMEAR (05/16/2023 10:49 AM CDT) Culture No acid-fast bacillus isolated 06/24/2023 7:31 AM [facility] MICROBIOLOGY AFB Smear No acid-fast bacilli seen 06/24/2023 7:[address] [facility] MICROBIOLOGY Microbiology ENTIRE KIDNEY / Unknown Collection / Unknown 05/16/2023 10:49 AM CDT 05/16/2023 12:07 PM CDT Janny Torres MD LAB - MICROBIOLOGY ORDERABLES Performing Organization Address [facility] de Phone Number [facility] MICROBIOLOGY [address] [place] [address], [facility] [phone] * CULTURE ANAEROBE (05/16/2023 10:49 AM CDT) Only the most recent of3 resultswithin the time period is included. Culture No anaerobic organisms isolated TERRELL 05/21/2023 7:48 AM CDT [facility] MICROBIOLOGY Microbiology ENTIRE KIDNEY / Unknown Collection / Unknown 05/16/2023 10:49 AM CDT 05/16/2023 12:07 PM CDT Janny Torres MD LAB - MICROBIOLOGY ORDERABLES Performing Organization Address [facility] de Phone Number [facility]CROBIOLOGY [address] [place] [address], [facility] [phone] * PT-INR (05/16/2023 8:31 AM CDT) Only the most recent of3 resultswithin the time period is included. PT 14.0 12.1 - 14.8 sec 05/16/2023 8:51 AM CDT [facility] INR 1.1 0.9 - 1.1 05/16/2023 8:51 AM CDT [facility] Blood BLOOD SPECIMEN / Unknown Venipuncture / Unknown 05/16/2023 8:31 AM CDT 05/16/2023 8:38 AM CDT Narrative [facility] - 05/16/2023 8:51 AM CDT Conventional Warfarin Anticoagulant Therapy: INR Reference Range: ??2.0-3.0 Intensive Warfarin Anticoagulant Therapy: INR Reference Range: ? 2.5-3.5 Chan Sarkar MD LAB - COAGULATION OR DERABLES [facility] [address] [address] * (ABNORMAL) CBC W AUTO DIFFERENTIAL (05/16/2023 8:31 AM CDT) Only the most recent of6 resultswithin the time period is included. WBC 6.0 4.4 - 10.7 x10E9/L 05/16/2023 8:42 AM CDT [facility] WBC Corrected 05/16/2023 8:42 AM CDT [facility] RBC 4.75 3.80 - 5.20 x10E12/L 05/16/2023 8:42 AM CDT [facility] Hemoglobin 12.4 12.0 - 15.6 gm/dL 05/16/2023 8:42 AM CDT [facility] Hematocrit 39.6 35.9 - 45.5 % 05/16/2023 8:42 AM CDT [facility] MCV 83.4 80.7 - 98.3 fl 05/16/2023 8:42 AM CDT [facility] MCH 26.1(L) 26.7 - 34.0 pg 05/16/2023 8:42 AM CDT [facility] MCHC 31.3 30.8 - 35.9 gm/dL 05/16/2023 8:42 AM CDT [facility] Platelet Count 187 153 - 416 x10E9/L 05/16/2023 8:42 AM CDT [facility] RDW-CV 14.4 12.1 - 14.9 % 05/16/2023 8:42 AM CDT [facility] MPV 11.8 9.4 - 12.9 fl 05/16/2023 8:42 AM CDT [facility] Neutrophils % 54.9 44.0 - 73.0 % 05/16/2023 8:42 AM CDT [facility] Lymphocytes % 35.3 20.0 - 43.0 % 05/16/2023 8:42 AM CDT [facility] Monocytes % 7.2 5.0 - 13.0 % 05/16/2023 8:42 AM CDT [facility] Eosinophils % 1.7 0.0 - 6.0 % 05/16/2023 8:42 AM CDT [facility] Basophils % 0.7 0.0 - 2.0 % 05/16/2023 8:42 AM T [facility] Immature Granulocytes 0.2 0 - 1 % 05/16/2023 8:42 AM T [facility] Neutrophil Absolute 3.27 2.01 - 7.14 x10E9/L 05/16/2023 8:42 AM CDT [facility] Lymphocytes Absolute 2.10 1.07 - 3.94 x10E9/L 05/16/2023 8:42 AM [facility] Monocytes Absolute 0.43 0.26 - 1.07 x10E9/L 05/16/2023 8:42 AM T [facility] Eosinophils Absolute 0.10 0 - 0.47 x10E9/L 05/16/2023 8:42 AM [facility] Basophils Absolute 0.04 0 - 0.08 x10E9/L 05/16/2023 8:42 AM [facility] Immature Granulocytes Absolute 0.01 0.00 - 0.06 x10E9/L 05/16/2023 8:42 AM [facility] nRBC Auto 0 /100 WBC 05/16/2023 8:42 AM [facility] Blood BLOOD SPECIMEN / Unknown Venipuncture / Unknown 05/16/2023 8:31 AM CDT 05/16/2023 8:38 AM CDT Chan Sarkar MD LAB - HEMATOLOGY ORD ERABLES Performing Organization Address City/State/[facility] Co de Phone Number [facility] [address] [place] [address] * (ABNORMAL) BASIC METABOLIC PANEL (CALCIUM TOTAL) (05/16/2023 8:31 AM CDT) Only the most recent of4 resultswithin the time period is included. [facility] Signature Glucose 107(H) 70 - 105 mg/dL 05/16/2023 8:55 AM [facility] Sodium 141 136 - 145 mmol/L 05/16/2023 8:55 AM [facility] Potassium 4.0 3.5 - 5.1 mmol/L 05/16/2023 8:55 AM [facility] Chloride 102 98 - 107 mmol/L 05/16/2023 8:55 AM CDT [facility] CO2 29 22 - 29 mmol/L 05/16/2023 8:55 AM CDT [facility] Calcium 9.4 8.4 - 10.4 mg/dL 05/16/2023 8:55 AM [facility] Anion Gap 10 6 - 16 mmol/L 05/16/2023 8:55 AM CDT [facility] BUN 20 7 - 26 mg/dL 05/16/2023 8:55 AM T [facility] Creatinine 1.37(H) 0.57 - 1.11 mg/dL 05/16/2023 8:55 AM [facility] eGFR by CKD-EPI 42(L) >=90 mL/min/1.7 3 m2 05/16/2023 8:55 AM [facility] Blood BLOOD SPECIMEN / Unknown Venipuncture / Unknown 05/16/2023 8:31 AM CDT 05/16/2023 8:38 AM CDT Chan Sarkar MD LAB - CHEMISTRY [facility] Organization Address City/State/ZIP Co de Phone Number [facility] [address] [place] [address] * URINALYSIS AUTO - POINT OF CARE (AMB) ST (05/03/2023 10:14 AM CDT) Only the most recent of4 resultswithin the time period is included. Clarity UA POCT n/a [facility] Color UA POCT n/a [facility] Leukocyte UA 3+ Negative [facility] Nitrite UA POCT neg Negative [facility] Urobilinogen UA 0.2 0.1 - 1.[address] [facility] Protein UA POCT 1+ Negative [facility] pH UA 6.0 5.0 - 8.[address] [facility] Blood UA 3+ Negative [facility] Specific [place] UA POCT 1.020 1.002 - 1.[address] [facility] Ketone UA neg Negative [facility] Bilirubin UA POCT neg Negative [facility] Glucose UA neg Negative [facility] Expiration Date [address] [facility] Lot # [id number] [facility] QC Verified Yes Yes [facility] Urine URINE / Unknown 05/03/2023 1 0:14 AM CDT Janny Torres MD LAB - POINT OF CAR E ORDERABLES [facility] [address] [place] [address], [facility] [phone] * CT RENAL STONE PROTOCOL (04/26/2023 3:10 PM CDT) Anatomical Region Laterality Modality Abdomen Computed Tomogra phy 04/26/2023 3:4 6 PM CDT Impressions 04/26/2023 4:12 PM CDT IMPRESSION: 1.Complex fluid collection at the right kidney which appears to be lateral to the parenchyma and exert mass effect on the underlying parenchyma. This is concerning for small hematoma or less likely a complex cyst. Correlation regarding significance is recommended. This can be evaluated further with follow-up ultrasound or CT imaging preferably with contrast. 2.Multiple small left renal calculi which are smaller than calcification seen on prior exam. 3.Ventral wall hernia with loops of bowel extending into the defect. This was present on previous study. 4.Small cyst of the pelvis which could represent an adnexal or mesenteric cyst. Edited by Melinda Gordon on 04/26/2023 4:11 PM > Interpreting Provider: Neil Cash MD on 04/26/2023 4:12 PM Narrative 04/26/2023 4:12 PM CDT PROCEDURE: ??CT RENAL STONE DATE/TIME OF EXAM: ??04/26/2023 3:12 PM, LOCATION ??[facility] INDICATION: N20.0: Calculus of kidney. HISTORY: ??Right flank pain. Stone suspected. Previous procedure of the kidney. COMPARISON: CT from 10/05/2019. TECHNIQUE: 5mm axial images were obtained without IV contrast. Sagittal and coronal reformats were obtained. ?? FINDINGS: Examination of the inferior chest shows no lung consolidation. EXAMINATION OF THE ABDOMEN AND PELVIS: LIVER: ??Normal. ADRENAL GLANDS: ??Normal. PANCREAS: ??Normal. SPLEEN: Normal. KIDNEYS: ??There are small calcifications at the left kidney with the largest calcification of the inferior pole measuring 3 x 3 mm. Calcifications are decreased in size from previous study. There is no calcification at the right kidney. There is a larger low-density structure at the right kidney which is toward the periphery of the kidney at the level of the midpole to inferior pole. This measures 109 x 69 x 93 mm. This has a density value of 27 representing slightly complex fluid. This is concerning for a lesion which is peripheral to the renal parenchyma and could represent a hematoma or complex cyst. This appears to have mass effect on the underlying parenchyma on the coronal reformatted images. Clinical correlation is recommended. Follow-up imaging with ultrasound or CT could be helpful for further evaluation. BLADDER: Normal. ASCITES: None. ADENOPATHY: ??No enlarged nodes. ADDITIONAL FINDINGS: ?? There is gas and stool seen within the colon. There is a ventral wall hernia with the area of diastases having a diameter of 88 mm. There are loops of bowel extending through the defect. This was present on previous study. There is a small hypodensity at the pelvis measuring 23 mm which is probably a cyst and could involve the adnexa or less likely a mesenteric cyst. There is calcification of the aorta and iliac arteries representing atherosclerosis. BONES: ??There is osteophyte formation of the lower thoracic spine and lumbar spine representing degenerative changes. Procedure Note Neil Cash MD - 04/26/2023 PROCEDURE: CT RENAL STONE DATE/TIME OF EXAM: 04/26/2023 3:12 PM, LOCATION [facility] INDICATION: N20.0: Calculus of kidney. HISTORY: Right flank pain. Stone suspected. Previous procedure of the kidney. COMPARISON: CT from 10/05/2019. TECHNIQUE: 5mm axial images were obtained without IV contrast. [place] coronal reformats were obtained. FINDINGS: Examination of the inferior chest shows no lung consolidation. EXAMINATION OF THE ABDOMEN AND PELVIS: LIVER: Normal. ADRENAL GLANDS: Normal. PANCREAS: Normal. SPLEEN: Normal. KIDNEYS: There are small calcifications at the left kidney with the largest calcification of the inferior pole measuring 3 x 3 mm. Calcifications are decreased in size from previous study. There is no calcification at the right kidney. There is a larger low-densitystructure at the right kidney which is toward the periphery of the kidney at the level of the midpole to inferior pole. This measures 109 x 69 x 93 mm.This has a density value of 27 representing slightly complex fluid. This is concerning for a lesion which is peripheral to the renal parenchyma and could represent a hematoma or complex cyst. This appears to have mass effect on the underlying parenchyma on the coronal reformatted images. Clinical correlation is recommended. Follow-up imaging with ultrasoundor CT could be helpful for further evaluation. BLADDER: Normal. ASCITES: None. ADENOPATHY: No enlarged nodes. ADDITIONAL FINDINGS: There is gas and stool seen within the colon. There is a ventral wall hernia with the area of diastases having a diameter of 88 mm. There are loops of bowel extending through the defect. This was present onprevious study. There is a small hypodensity at the pelvis measuring 23 mm whichis probably a cyst and could involve the adnexa or less likely a mesenteric cyst. There is calcification of the aorta and iliac arteries representing atherosclerosis. BONES: There is osteophyte formation of the lower thoracic spine and lumbar spine representing degenerative changes. IMPRESSION: 1.Complex fluid collection at the right kidney which appears to belateral to the parenchyma and exert mass effect on the underlying parenchyma.This is concerning for small hematoma or less likely a complex cyst.Correlation regarding significance is recommended. This can be evaluated furtherwith follow-up ultrasound or CT imaging preferably with contrast. 2.Multiple small left renal calculi which are smaller than calcification seen on prior exam. 3.Ventral wall hernia with loops of bowel extending into the defect.This was present on previous study. 4.Small cyst of the pelvis which could represent an adnexal ormesenteric cyst. Edited by Melinda Gordon on 04/26/2023 4:11 PM > Interpreting Provider: Neil Cash MD on 04/26/2023 4:12 PM Janny Torres MD CT ORDERABLES * US RETROPERITONEAL COMPLETE (12/19/2022 2:31 PM CDT) Anatomical Region Laterality Modality Abdomen Ultrasound 12/19/2022 2:47 PM CDT Impressions 12/19/2022 4:30 PM CDT IMPRESSION: 1.Complex cystic lesion at the midpole of the right kidney. This was not seen on the most recent CT study. This is most likely a complex cyst. A process such as hematoma or abscess would be less likely. Follow-up imaging with CT or ultrasound within the next 2-3 months is recommended. 2.Calcification left kidney. Edited by Christa Lenz on 12/19/2022 3:00 PM > Interpreting Provider: Neil Cash MD on 12/19/2022 4:30 PM Narrative 12/19/2022 4:30 PM CDT PROCEDURE: ??US RETROPERITONEAL COMPLETE DATE/TIME OF EXAM: ??12/19/2022 2:31 PM CLINICAL INFORMATION: None relevant/not provided if blank. Indication: Z46.6: Encounter for fitting and adjustment of urinary device N20.0: Calculus of kidney Additional History: COMPARISON: CT from 10/05/2022. TECHNIQUE: Real-time ultrasound of the kidneys and bladder with DICOM image capture performed by survey technologist. FINDINGS: Ultrasound examination of the right and left kidney was performed. The right kidney measures 133 x 82 x 54 mm. There is a heterogenous cystic lesion at the midpole of the right kidney measuring 96 x 92 x 90 mm. This is probably a complex cyst with debris. A process such as hematoma or abscess cannot be entirely excluded. This was not seen on the corresponding CT study. Follow-up imaging with CT or ultrasound within the next 2-3 months is recommended. The left kidney measures 90 x 47 x 48 mm. There is an area of increased echogenicity with some shadowing at the inferior pole of the left kidney measuring 9 mm maximum diameter which is probably a stone. There are ureteral jets seen at the base of bladder bilaterally. Procedure Note Neil Cash MD - 12/19/2022 PROCEDURE: US RETROPERITONEAL COMPLETE DATE/TIME OF EXAM: 12/19/2022 2:31 PM CLINICAL INFORMATION: None relevant/not provided if blank. Indication: Z46.6: Encounter for fitting and adjustment of urinarydevice N20.0: Calculus of kidney Additional History: COMPARISON: CT from 10/05/2022. TECHNIQUE: Real-time ultrasound of the kidneys and bladder with DICOMimage capture performed by survey technologist. FINDINGS: Ultrasound examination of the right and left kidney was performed. The right kidney measures 133 x 82 x 54 mm. There is a heterogenouscystic lesion at the midpole of the right kidney measuring 96 x 92 x 90 mm.This is probably a complex cyst with debris. A process such as hematoma or abscess cannot be entirely excluded. This was not seen on thecorresponding CT study. Follow-up imaging with CT or ultrasound within the next 2-3 months is recommended. The left kidney measures 90 x 47 x 48 mm. There is an area of increased echogenicity with some shadowing at the inferior pole of the left kidney measuring 9 mm maximum diameter which is probably a stone. There are ureteral jets seen at the base of bladder bilaterally. IMPRESSION: 1.Complex cystic lesion at the midpole of the right kidney. This was not seen on the most recent CT study. This is most likely a complex cyst. A process such as hematoma or abscess would be less likely. Follow-upimaging with CT or ultrasound within the next 2-3 months is recommended. 2.Calcification left kidney. Edited by Christa Lenz on 12/19/2022 3:00 PM > Interpreting Provider: Neil Cash MD on 12/19/2022 4:30 PM Janny Torres MD US ORDERABLES * CARDIAC RHYTHM STRIP ORDER (10/08/2022 11:36 PM [facility]) Only the most recent of2 resultswithin the time period is included. Narrative 10/08/2022 11:36 PM [facility] Ordered by an unspecified provider. Scanned Document CARDIAC SERVICES ORD ERABLES * FL LEONELA SURGERY (10/05/2022 3:58 PM [facility]) Narrative [facility] - 10/05/2022 3:59 PM [facility] For details of this study, please see the providers note. Janny Torres MD FLUOROSCOPY ORDERA BLES [facility] [address] [id number] * STONE ANALYSIS QUANT (10/05/2022 2:31 PM [facility]) Stone Weight 1426 mg 10/13/2022 11:06 PM [facility] ([facility]) Stone Source Comment 10/13/2022 11:06 PM [facility] ([facility]) Comment:Not provided Stone color Reynaga 10/13/2022 11:06 PM [facility] ([facility]) Stone size 9x8 mm 10/13/2022 11:06 PM [facility] ([facility]) Comment: Multiple pieces received. ??Dimensions of the largest piece reported. Stone Composition Comment 023 11:06 PM [facility] ([facility]) Comment:Percentage (Represen ts the % composition) Calcium Oxalate Monoh 75 % 10/13/2022 11:06 PM [facility] ([facility]) Calcium Oxalate Dihyd 20 % 10/13/2022 11:06 PM [facility] ([facility]) Hydroxyapatite 5 % 10/13/2022 11:06 PM [facility] ([facility]) Comment Comment 10/13/2022 11:06 PM [facility] ([facility]) Comment: Calcium phosphate (hydroxyl form) includes hydroxyapatite, amorphous calcium phosphate, and whitlockite. Hydroxyapatite is the most common of the calcium phosphate salts found in human kidney stones. Comment Comment 10/13/2022 11:06 PM [facility] ([facility]) Comment: Calculus received wet. Wet calculi must be dried before analysis, which delays reporting of results. Leaving calculi wet (such as water, saline, blood, urine) may lead to changes in composition. Stone photo Comment 10/13/2022 11:06 PM [facility] ([facility]) Comment:Photograph will foll ow under a separate cover Comment: Comment 10/13/2022 11:06 PM [facility] ([facility]) Comment: Physician questions regarding Calculi Analysis contact [facility] at: [phone]. Please Note: Comment 10/13/2022 11:06 PM [facility] ([facility]) Comment: Calculi report will follow via computer, mail or laundry tech delivery. Disclaimer: Comment 10/13/2022 11:06 PM [facility] ([facility]) Comment: This test was developed and its performance characteristics determined by [facility]. ??It has not been cleared or approved by the Food and Drug Administration. Pathology/Cytolo gy KIDNEY STONE / Unknown 10/05/2022 2:31 PM [facility] 10/09/2022 7:57 AM [facility] Narrative [facility] ([facility]) - 10/13/2022 11:06 PM [facility] Performed at: ??01 - [facility] [address] [place] [address] Dr Bar[address], [place], [place] ??[id number] Couples Therapist: Colt Lenog PhD, Phone: ??[phone] Janny Torres MD LAB - URINE CHEMIS TRY ORDERABLES [facility] ([facility]) [address] [place] [address] * IR PERC NEPHROSTOMY RIGHT (10/05/2022 12:50 PM [facility]) Anatomical Region Laterality Modality Abdomen X-Ray Angiograph y 10/08/2022 1:12 PM [facility] Impressions 10/08/2022 5:48 PM [facility] IMPRESSION: ??SONOGRAPHICALLY AND FLUOROSCOPICALLY GUIDED PLACEMENT OF A 5 LITHUANIAN KUMPE CATHETER OVER AN AMPLATZ STIFF WIRE, THROUGH THE RIGHT KIDNEY, PAST THE PELVIC CALCULUS, INTO THE URINARY BLADDER. > Interpreting Provider: Jeff Farrar MD on 10/08/2022 5:48 PM Narrative 10/08/2022 5:48 PM [facility] PROCEDURE: ??IR PERC NEPHROSTOMY RIGHT, DATE/TIME OF EXAM: ??10/05/2022 1:02 PM, LOCATION ??[facility] INDICATION: ??N20.0: Calculus of kidney ADDITIONAL CLINICAL INFORMATION: Ordering Provider Reason For Exam: Technologist Note: Additional: COMPARISON: ??CT examination of the abdomen and pelvis from earlier this same encounter RIGHT SIDED PERCUTANEOUS IMAGE GUIDED PLACEMENT OF A CATHETER INTO THE RIGHT RENAL COLLECTING SYSTEM, PAST THE TARGETED CALCULUS, INTO THE URINARY BLADER PRIOR TO SURGICAL STONE REMOVAL AND SUPERVISION OF CONSCIOUS SEDATION. INDICATION: ??57 year old Female right-sided nephrolithiasis. A right ureteral stent is in place, TECHNIQUE: ??The procedure was performed by Dr. Strzembosz. ??Relevant prior imaging studies were reviewed. The procedure was explained to the patient, and we discussed potential risks of pain, bleeding, infection, visceral injury, as well as the possibility of not being able to complete the procedure. That a drain would be exiting her body was discussed. The skin over her right back was prepped in the usual manner. A timeout was performed. The procedure was performed using maximum sterile technique, with all team members wearing a catheter and mask, gown and sterile gloves. Bony landmarks were identified. Under sonography, the right kidney was visualized and site over a the kidney was infiltrated with lidocaine. Under sonographic guidance, the anticipated tract was also infiltrated with buffered lidocaine. Under fluoroscopy and sonography,, smaller calculi seen in the posterior right kidney on the CT images are not able to be seen. The central calculus at the renal pelvis is seen. Under sonographic guidance, a 22-gauge needle was passed, percutaneously, towards the right kidney. ??Contrast was injected, confirming the needle position within the pelvicalyceal system. When air was injected, however, the accessed calyx was not most posterior calyx. Air was injected, identifying the most nondependent calyx, below the anticipated left lung costophrenic sulcus. A second skin site was infiltrated with lidocaine and, under fluoroscopic guidance, a 21-gauge needle was directed into the air-filled midpole calyx. The stylet was removed and an 0.018 soft guide wire passed into the collecting system. ??A dermatotomy was made, and the needle was withdrawn and replaced with a coaxial system. A Bentson guidewire was passed through the 6 Guyanese coaxial access system and a hydrophilic ??guidewire was directed caudally, past the large filling defect/calculus, into the ureter. This was followed with the 65 cm 5 Guyanese Kumpe catheter and directed into the urinary bladder. ??An exchange was made for a Bentson guidewire, that was directed into the urinary bladder.. She was given conscious sedation by the trained radiology nurse and observer, under my direct face to face supervision. She received 7 mg of midazolam and 350 mcg of fentanyl. ??She was monitored through out the procedure, and during the 41 minutes of sedation, intra-service. She received a total of 30 cc of Isovue 370. ??She stated she tolerated the procedure well, without appreciable pain. She received 7.5 minutes of fluoroscopy. FINDINGS: ??As above, the physics technician images, under fluoroscopy, showed an ovoid calculus at the ureteropelvic junction. Images show mild pelvicalyceal dilatation. Final images, with the Kumpe catheter in the urinary bladder, confirming the access from a posterior calyx, through the collecting system, past the calculus, into the bladder.. Procedure Note Jeff Farrar MD - 10/08/2022 PROCEDURE: IR PERC NEPHROSTOMY RIGHT, DATE/TIME OF EXAM: :02 PM, LOCATION [facility] INDICATION: N20.0: Calculus of kidney ADDITIONAL CLINICAL INFORMATION: Ordering Provider Reason For Exam: Technologist Note: Additional: COMPARISON: CT examination of the abdomen and pelvis from earlier this same encounter RIGHT SIDED PERCUTANEOUS IMAGE GUIDED PLACEMENT OF A CATHETER INTO THE RIGHT RENAL COLLECTING SYSTEM, PAST THE TARGETED CALCULUS, INTO THEURINARY BLADER PRIOR TO SURGICAL STONE REMOVAL AND SUPERVISION OF CONSCIOUS SEDATION. INDICATION: 57 year old Female right-sided nephrolithiasis. A right ureteral stent is in place, TECHNIQUE: The procedure was performed by Dr. Farrar. Relevantprior imaging studies were reviewed. The procedure was explained to the patient, and we discussed potential risks of pain, bleeding, infection, visceral injury, as well as the possibility of not being able to complete the procedure. That a drainwould be exiting her body was discussed. The skin over her right back was prepped in the usual manner. A timeoutwas performed. The procedure was performed using maximum sterile technique, with all team members wearing a catheter and mask, gown and sterilegloves. Bony landmarks were identified. Under sonography, the right kidney was visualized and site over a the kidney was infiltrated with lidocaine.Under sonographic guidance, the anticipated tract was also infiltrated with buffered lidocaine. Under fluoroscopy and sonography,, smaller calculi seen in the posterior right kidney on the CT images are not able to be seen. The centralcalculus at the renal pelvis is seen. Under sonographic guidance, a 22-gauge needle was passed,percutaneously, towards the right kidney. Contrast was injected, confirming the needle position within the pelvicalyceal system. When air was injected,however, the accessed calyx was not most posterior calyx. Air was injected, identifying the most nondependent calyx, below the anticipated left lung costophrenic sulcus. A second skin site was infiltrated with lidocaineand, under fluoroscopic guidance, a 21-gauge needle was directed into the air-filled midpole calyx. The stylet was removed and an 0.018 softguide wire passed into the collecting system. A dermatotomy was made, and the needle was withdrawn and replaced with a coaxial system. A Bentson guidewire was passed through the 6 Guyanese coaxial accesssystem and a hydrophilic guidewire was directed caudally, past the largefilling defect/calculus, into the ureter. This was followed with the 65 cm 5 Guyanese Kumpe catheter and directedinto the urinary bladder. An exchange was made for a Bentson guidewire, that was directed into the urinary bladder.. She was given conscious sedation by the trained radiology nurse and observer, under my direct face to face supervision. She received 7 mg of midazolam and 350 mcg of fentanyl. She was monitored through out the procedure, and during the 41 minutes of sedation, intra-service. She received a total of 30 cc of Isovue 370. She stated she tolerated the procedure well, without appreciable pain. She received 7.5 minutes of fluoroscopy. FINDINGS: As above, the physics technician images, under fluoroscopy, showed anovoid calculus at the ureteropelvic junction. Images show mild pelvicalyceal dilatation. Final images, with the Kumpe catheter in the urinarybladder, confirming the access from a posterior calyx, through the collecting system, past the calculus, into the bladder.. IMPRESSION: SONOGRAPHICALLY AND FLUOROSCOPICALLY GUIDED PLACEMENT OF A5 LITHUANIAN KUMPE CATHETER OVER AN AMPLATZ STIFF WIRE, THROUGH THE RIGHTKIDNEY, PAST THE PELVIC CALCULUS, INTO THE URINARY BLADDER. > Interpreting Provider: Jeff Farrar MD on 10/08/2022 5:48 PM Janny Torres MD IR ORDERABLES * EKG 12-LEAD (10/05/2022 10:09 AM [facility]) Ventricular Rate 85 BPM [facility] Atrial Rate 85 BPM [facility] P-R Interval 160 ms [facility] QRS Duration ms 82 ms [facility] Q-T Interval ms 378 ms [facility] QTC Calculation (Bezet) 449 ms [facility] Calculated P Volcano 35 degrees [facility] MUSE Calculated R Volcano 21 degrees [facility] MUSE Calculated T Volcano 28 degrees [facility] MUSE Interpretation EKG Normal sinus rhythm Cannot rule out Anterior infarct ??seen also in 01/16/08 Abnormal ECG When compared with ECG of 16-JAN-2008 19:22, unconfirmed No significant change was found Confirmed by MD KASHIF, SOSA Ohara ([id number]) on 10/09/2022 8:05:57 AM [facility] MUSE 10/05/2022 10:0 9 AM [facility] 10/09/2022 8:05 AM [facility] Sukhjinder Quezada DO ECG ORDERABLES Performing Organization Address City/[facility]/ZIP Co de Phone Number [facility] MUSE * TYPE + SCREEN PANEL (10/05/2022 9:36 AM [facility]) ABO Rh A POS 10/05/2022 10:37 AM [facility] BLOOD BANK LAB Comment:No history; collect retype. Antibody Screen NEG 10:37 AM [facility]OD [facility] LAB Blood Bank BLOOD SPECIMEN / Unknown Venipuncture / Unknown 10/05/2022 9:36 AM [facility] 10/05/2022 9:45 AM [facility] Janny Torres MD LAB - BLOOD BANK O RDERABLES Performing Organization Address City/[facility]/ZIP Co de Phone Number [facility] BLOOD BANK LAB [facility] [address] [phone] * CT ABDOMEN AND PELVIS NON IV CONTRAST (10/05/2022 9:28 AM [facility]) Anatomical Region Laterality Modality Abdomen, Pelvis Computed Tomogra phy 10/05/2022 10:3 8 AM [facility] Impressions 10/05/2022 1:39 PM [facility] IMPRESSION: 1. Right renal pelvic calculus with moderate right-sided hydronephrosis. Right-sided ureteric stent in place. Additional right renal lower pole calculi. 2. Nonobstructive left renal lower pole calculi. Edited by Melinda Gordon on 10/05/2022 11:24 AM > Interpreting Provider: Julieta Rae MD on 10/05/2022 1:39 PM Narrative 10/05/2022 1:39 PM [facility] PROCEDURE: ??CT ABDOMEN PELVIS WO CONTRAST, DATE/TIME OF EXAM: ??10/05/2022 9:29 AM, LOCATION ??[facility] INDICATION: N20.0: Calculus of kidney ADDITIONAL CLINICAL INFORMATION: Ordering Provider Reason For Exam: Technologist Note: Additional: COMPARISON: None. TECHNIQUE: CT of the abdomen and pelvis was performed without oral or intravenous contrast. CT dose reduction technique was used, including Automated Exposure Control. FINDINGS: A right-sided ureteric stent is in place. There is a right renal pelvic calculus, measuring 1.0 x 1.8 cm in size. Also noted, focal calcifications within the lower pole calyces in the right kidney. There is moderate right-sided hydronephrosis seen. Also noted lower pole calculi on the left, measures up to 1 cm. No left-sided hydronephrosis seen. No left ureteric stent identified. No abnormal calcification within the left ureter. The vesicoureteral junctions are unremarkable. Urinary bladder is decompressed. There is a right adnexal cyst, measuring 3.3 x 3.3 cm. The uterus is unremarkable. The nonenhanced liver, spleen, adrenal glands and pancreas is unremarkable. Status post cholecystectomy. Large anterior abdominal wall hernia containing bowel loops including portions of transverse colon and small bowel. No evidence of bowel obstruction noted. No ascites or free air noted. No enlarged retroperitoneal or mesenteric lymphadenopathy identified. Shotty subcentimeter aortocaval nodes are noted. Visualized lung bases demonstrate minimal bibasilar atelectasis. There is degenerative changes of the spine. No vertebral compression fracture identified. No definite focal lytic or sclerotic osseous lesion is identified. Procedure Note Julieta Rae MD - 10/05/2022 PROCEDURE: CT ABDOMEN PELVIS WO CONTRAST, DATE/TIME OF EXAM: 10/05/2022 9:29 AM, LOCATION [facility] INDICATION: N20.0: Calculus of kidney ADDITIONAL CLINICAL INFORMATION: Ordering Provider Reason For Exam: Technologist Note: Additional: COMPARISON: None. TECHNIQUE: CT of the abdomen and pelvis was performed without oral or intravenous contrast. CT dose reduction technique was used, including Automated ExposureControl. FINDINGS: A right-sided ureteric stent is in place. There is a right renal pelvic calculus, measuring 1.0 x 1.8 cm in size. Also noted, focalcalcifications within the lower pole calyces in the right kidney. There is moderate right-sided hydronephrosis seen. Also noted lower pole calculi on theleft, measures up to 1 cm. No left-sided hydronephrosis seen. No left ureteric stent identified. No abnormal calcification within the left ureter. The vesicoureteral junctions are unremarkable. Urinary bladder isdecompressed. There is a right adnexal cyst, measuring 3.3 x 3.3 cm. The uterus is unremarkable. The nonenhanced liver, spleen, adrenal glands and pancreasis unremarkable. Status post cholecystectomy. Large anterior abdominal wall hernia containing bowel loops including portions of transverse colon and small bowel. No evidence of bowel obstruction noted. No ascites or freeair noted. No enlarged retroperitoneal or mesenteric lymphadenopathy identified. Shotty subcentimeter aortocaval nodes are noted. Visualized lung bases demonstrate minimal bibasilar atelectasis. There isdegenerative changes of the spine. No vertebral compression fracture identified. No definite focal lytic or sclerotic osseous lesion is identified. IMPRESSION: 1. Right renal pelvic calculus with moderate right-sided hydronephrosis. Right-sided ureteric stent in place. Additional right renal lower pole calculi. 2. Nonobstructive left renal lower pole calculi. Edited by Melinda Gordon on 10/05/2022 11:24 AM > Interpreting Provider: Julieta Rae MD on 10/05/2022 1:39 PM Jeff Farrar MD CT ORDERABLES * BLOOD TYPE VERIFICATION (10/05/2022 9:25 AM [facility]) ABO Rh A POS 10/05/2022 10:35 AM [facility] BLOOD BANK LAB Blood Bank BLOOD SPECIMEN / Unknown Lab Venipuncture / Unknown 10/05/2022 9:25 AM [facility] 10/05/2022 9:47 AM [facility] Janny Torres MD LAB - BLOOD BANK O RDERABLES [facility] BLOOD B[facility] LAB [address] [place] [address], [facility] [phone] * GROSS EXAM PATHOLOGY (STL) (10/05/2022 12:00 AM [facility]) Case Report Surgical Pathology Report ? Case: [id number] ? Authorizing Provider: ??Janny Schmidt MD ? Collected: ? 10/05/2022 12:00 AM ? Ordering Location: ? [facility] 2N ORTHOPEDICS ?Received: ?10/08/2022 10:52 AM ? Pathologist: ? Joelle Chin MD ? Specimen: ?Calculus Kidney ? 10/09/2022 8:47 AM [facility] Final Diagnosis Calculus, kidney, removal: - Consistent with removed calculus (gross examination only). SD 10/09/2022 8:47 AM [facility] Gross Description Received in saline labeled Schlund, stone analysis are multiple brown-reynaga, multifaceted calculi, 3 cm in greatest aggregate dimension. The specimen is submitted for gross examination only. JI/ns 10/09/2022 8:47 AM [facility] Embedded Images 10/09/2022 8:47 AM [facility] Pathology/Cytolog y KIDNEY STONE / Unknown 10/05/2022 10/08/2022 10:52 AM [facility] Janny Torres MD LAB - PATHOLOGY/CY TOLOGY ORDERABLES [facility] [address] [address] * LARYNGEAL MASK AIRWAY (08/22/2022 10:11 AM [facility]) Narrative Zee Yost APRN-CRNA - 08/22/2022 10:11 AM [facility] Zee Yost APRN-CRNA ? 08/22/2022 10:12 AM LMA Placement Procedure/LDA Note: Patient Location: OR. LMA Insertion Date/Time: ??08/22/2022 10:06 AM Procedure: LMA. Pretreatment: 100% O2 Induction: standard IV Patient position: sniffing. Mask Ventilation: not attempted Type: ??gel LMA Size: ??4 Number of Attempts: 1. Placement verified by: direct visualization, bilateral breath sounds, chest auscultation and CO2 monitor Dentition unchanged? ??Yes Procedure Start Time: 08/22/2022 10:06 AM. Staff Section ? Anesthesia Provider: Zee Yost APRN-CRNA ? Provider #1: Lou Wynne RN, Performed the procedure. Additional Comments: Atraumatic successful LMA placement x1 attempt by SRNA. Teeth and lip as preop. Misael Madrigal MD GENERAL ANESTH ESIA ORDERABLES * (ABNORMAL) CULTURE URINE (07/04/2022 8:33 AM [facility]) Urine Culture Routine Final report(A) [facility] INSURANCE BILL Result 1 (A) [facility] INSURANCE BILL Comment: Escherichia coli, identified by an automated biochemical system. Cefazolin <=4 ug/mL Cefazolin with an TERRELL <=16 predicts susceptibility to the oral agents cefaclor, cefdinir, cefpodoxime, cefprozil, cefuroxime, cephalexin, and loracarbef when used for therapy of uncomplicated urinary tract infections due to E. coli, Klebsiella pneumoniae, and Proteus mirabilis. Greater than 100,000 colony forming units per mL Result 2 [facility] INSURANCE BILL Comment: Mixed urogenital janice 10,000-25,000 colony forming units per mL Antimicrobial Susceptibility [facility] INSURANCE BILL Comment: ? S = Susceptible; I = Intermediate; R = Resistant ? P = Positive; N = Negative ?MICS are expressed in micrograms per mL ?? Antibiotic ? RSLT#1 ?RSLT#2 ?RSLT#3 ?RSLT#4 Amoxicillin/Clavulanic Acid ?S Ampicillin ? S Cefepime ? S Ceftriaxone ?S Cefuroxime ? S Ciprofloxacin ?S Ertapenem ?S Gentamicin ? S Imipenem ? S Levofloxacin ? S Meropenem ?S Nitrofurantoin ? S Piperacillin/Tazobactam ?S Tetracycline ? S Tobramycin ? S Trimethoprim/Sulfa ? S Urine URINE SPECIMEN OBTAINED BY CLEAN CATCH PROCEDURE / Unknown 07/04/2022 8:33 AM [facility] 07/04/2022 Narrative Resulting Agency Comment Lab Testing performed at: [facility] [address] ??Formerly [facility], [facility] [phone] Janny Torres MD LAB - MICROBIOLOGY ORDERABLES [facility] [address] [place] [address] * LAB RESULTS ORDER (01/11/2014 4:39 PM CDT) Narrative 01/11/2014 4:39 PM CDT Ordered by an unspecified provider. Transcriptions Document, Scanned - 01/11/2014 4:39 PM CDT Scanned Document LAB - THERAPEUTIC DR MENCHACA MONITORING ORDERABLES * VANCOMYCIN LEVEL RANDOM (01/08/2014 10:59 AM CDT) Pathologist [facility] Vancomycin Random 11.3 ug/mL 01/08/2014 11:27 AM CDT [facility] Blood BLOOD SPECIMEN / Unknown Lab Venipuncture / Unknown 01/08/2014 10:59 AM CDT 01/08/2014 11:04 AM CDT Narrative [facility] - 01/08/2014 11:27 AM CDT No reference range available for random Vancomycin levels. All results interpreted by ordering physician. Cheikh Urias DO LAB - CHEMISTRY SHRADDHA JOYA [facility] [address] [place] [address] * PT PTT PANEL (01/07/2014 2:40 PM CDT) Only the most recent of5 resultswithin the time period is included. PT 10.0 9.3 - 11.4 sec 01/07/2014 3:06 PM CDT [facility] INR 0.95 0.92 - 1.12 01/07/2014 3:06 PM CDT [facility] PTT 27.5 23.0 - 34.0 sec 01/07/2014 3:06 PM CDT [facility] Blood BLOOD SPECIMEN / Unknown Lab Venipuncture / Unknown 01/07/2014 2:40 PM CDT 01/07/2014 2:50 PM CDT Narrative [facility] - 01/07/2014 3:06 PM CDT Conventional Anticoagulant Therapy INR Reference Ranges: ??2.0-3.0 Intensive Anticoagulant Therapy INR Reference Ranges: ? 2.5-3.5 Cheikh Urias DO LAB - COAGULATION OR DERABLES Performing Organization Address City/State/[facility] Co de Phone Number [facility] [address] [place] [address] * FL VENOGRAM EXTREMITY UNILATERAL (01/07/2014 2:30 PM CDT) Anatomical Region Laterality Modality Radiographic Eda ging 01/07/2014 4:47 PM CDT Narrative 01/07/2014 4:49 PM CDT Examination: Right lower extremity venogram. Indication for examination: Swelling and pain right lower extremity. Deep vein thrombosis. This procedure was performed in the radiology Department by Dr. Bain. After explanation of the procedure and routine skin prep, a 21-gauge butterfly needle was placed into a vein on the dorsum of the right foot. Tourniquets and a blood pressure cuff around that the catheter. 60 cc of nonionic contrast were injected with spot filming of the venous system of the right lower extremity in multiple projections. At the completion of the procedure the veins were flushed with saline solution. She tolerated the procedure well without apparent immediate complication. Fluoroscopy time 1.5 minutes. No deep vein thrombosis is identified in the right lower extremity on this examination. There is some incompetence and tortuosity of communicating veins. There is filling of the saphenous venous system and this is patent as well. Conclusion: No deep vein thrombosis identified. Procedure Note Chan Bain MD - 01/07/2014 Examination: Right lower extremity venogram. Indication for examination: Swelling and pain right lower extremity. Deep vein thrombosis. This procedure was performed in the radiology Department by Dr. Bain. After explanation of the procedure and routine skin prep, a 21-gauge butterfly needle was placed into a vein on the dorsum of the right foot. Tourniquets and a blood pressure cuff around that the catheter. 60 cc of nonionic contrast were injected with spot filming of the venous system of the right lower extremity in multiple projections. At the completion of the procedure the veins were flushed with saline solution. She tolerated the procedure well without apparent immediate complication. Fluoroscopy time 1.5 minutes. No deep vein thrombosis is identified in the right lower extremity on this examination. There is some incompetence and tortuosity of communicating veins. There is filling of the saphenous venous system and this is patent as well. Conclusion: No deep vein thrombosis identified. Cheikh Urias DO FLUOROSCOPY ORDERABL ES * VAS RIGHT VENOUS DUPLEX LE (01/06/2014 8:34 PM CDT) Anatomical Region Laterality Modality Ultrasound 01/06/2014 9:53 PM CDT Narrative 01/07/2014 1:38 PM CDT ?[facility] ?[address] ?[place] ??[address] ? Lower Extremity Venous Ultrasound Report ? Pat.Name: ??JOAQUÍNALLY Duke ?Pat.ID: ?[id number] ? St.Date: ?? 01/06/2014 ? Exam Time: 9:53:00 PM ? Study Type:LE Venous ?Age: ??1955,58Y ? Sex: ? FEMALE ?Sonogrphr: Helga Cardenas, ??RVT ?? Room: ?ER 21 ? Reason for Study:Swelling -Leg, right, Pain -Leg, right, + D-Dimer, Calf pain - right, Cellulitis History / Clinical:Obesity, History of DVT Visit ID: ??[id number] ? SUMMARY: Negative for DVT at this time. ??Limited study as noted above. FINDINGS: Procedure: Venous duplex imaging of the right lower extremity was ?performed ??using color flow and spectral Doppler analysis. ?The ??contralateral common femoral vein was also examined. Study Quality: Technically difficult exam due to body habitus . ?Limited ??exam due to pain.. Rt Leg: ?? All vessels seen appear patent and compressible. There was ?spontaneous ??and phasic flow seen in all the major veins of ?the ??right lower extremity in thigh and popletial area Very ?limited ??non conclusive evaluation of calf veins due to ?pain. Comments: Technologist findings were called to ordering physician ?Gladys ??8:35pm . Signed 01/07/2014 01:38 PM Ze Avila MD Procedure Note 01/07/2014 [place] [address] Lower Extremity Venous Ultrasound Report Pat.Name: ALLY YANES Duke Pat.ID: [id number] .Date: 01/06/2014 Exam Time: 9:53:00 PM Study Type:LE Venous Age: 7 1955,58Y Sex: FEMALE Sonogrphr: Helga Cardenas RVT Room: ER 21 Reason for Study:Swelling -Leg, right, Pain -Leg, right, + D-Dimer, Calf pain - right, Cellulitis History / Clinical:Obesity, History of DVT Visit ID: [id number] SUMMARY: Negative for DVT at this time. Limited study as noted above. FINDINGS: Procedure: Venous duplex imaging of the right lower extremity was performed using color flow and spectral Doppler analysis. The contralateral common femoral vein was also examined. Study Quality: Technically difficult exam due to body habitus . Limited exam due to pain.. Rt Leg: All vessels seen appear patent and compressible. There was spontaneous and phasic flow seen in all the major veins of the right lower extremity in thigh and popletial area Very limited non conclusive evaluation of calf veins due to pain. Comments: Technologist findings were called to ordering physician DR Graham 8:35pm . Signed 01/07/2014 01:38 PM Ze Avila MD Garrett Graham MD VASCULAR LAB ORDERAB LES * CULTURE BLOOD (01/06/2014 7:43 PM CDT) Only the most recent of2 resultswithin the time period is included. Pathologist [facility] Culture No Growth 01/13/2014 11:22 AM CDT [facility] MICROBIOLOGY Blood PERIPHERAL BLOOD / Unknown 01/06/2014 7:43 PM CDT 01/06/2014 7:53 PM CDT Garrett Graham MD LAB - MICROBIOLOGY O RDERABLES [facility] MICROBIOLOGY [address] [place], [place] [address], [facility] * (ABNORMAL) D-DIMER (01/06/2014 6:54 PM CDT) Pathologist [facility] D-Dimer 2.74(H) 0 - 0.5 mg/L FEU 01/06/2014 7:11 PM CDT [facility] Blood BLOOD SPECIMEN / Unknown Venipuncture / Unknown 01/06/2014 6:54 PM CDT 01/06/2014 6:58 PM CDT Narrative [facility] - 01/06/2014 7:11 PM CDT Elevated results above the normal range may indicate DIC in the appropriate clinical setting. ??Serial evaluations may yield information regarding the clinical course. Results of this test should always be interpreted in conjunction with the patient's medical history, clin ical presentation and other findings. At the clinical cut-off of 0.50 mg/L FEU the Negative Predictive Value using INNOVANCE D-dimer is 98%. A very low percentage of patients with DVT may yield D-dimer results below the cut-off of 0.50 mg/L FEU. This is known to be prevalent in patients with distal DVT and in rare cases of PE. Garrett Graham MD LAB - COAGULATION OR DERABLES Performing Organization Address City/[facility]/ZIP Co de Phone Number [facility] [address] [address] * CBC W MANUAL DIFFERENTIAL (01/06/2014 6:51 PM CDT) [facility] WBC 6.1 4.4 - 10.7 x10^9/L 01/06/2014 7:01 PM CDT [facility] RBC 4.56 3.80 - 5.20 x10^12/L 01/06/2014 7:01 PM CDT [facility] Hemoglobin 12.7 12.0 - 15.6 gm/dL 01/06/2014 7:01 PM CDT [facility] Hematocrit 37.8 35.9 - 45.5 % 01/06/2014 7:01 PM CDT [facility] MCV 82.9 80.7 - 98.3 fl 01/06/2014 7:01 PM CDT [facility] MCH 27.9 26.7 - 34.0 pg 01/06/2014 7:01 PM CDT [facility] MCHC 33.6 30.8 - 35.9 gm/dL 01/06/2014 7:01 PM CDT [facility] RDW-CV 13.7 12.1 - 14.9 % 01/06/2014 7:01 PM CDT [facility] MPV 11.0 9.4 - 12.9 fl 01/06/2014 7:01 PM CDT [facility] Platelet Count 297 153 - 416 x10^9/L 01/06/2014 7:01 PM T [facility] Blood BLOOD SPECIMEN / Unknown Venipuncture / Unknown 01/06/2014 6:51 PM CDT 01/06/2014 6:58 PM CDT Garrett Graham MD LAB - HEMATOLOGY ORD ERABLES Performing Organization Address City/[facility]/ZIP Co de Phone Number [facility] [address] [place] [address] * (ABNORMAL) COMPREHENSIVE METABOLIC PANEL (01/06/2014 6:51 PM CDT) Only the most recent of2 resultswithin the time period is included. Glucose 109(H) 74 - 106 mg/dL 01/06/2014 7:15 PM [facility] Sodium 139 136 - 145 mmol/L 01/06/2014 7:15 PM [facility] Potassium 4.5 3.5 - 5.1 mmol/L 01/06/2014 7:15 PM [facility] Chloride 102 98 - 107 mmol/L 01/06/2014 7:15 PM [facility] CO2 29 22 - 31 mmol/L 01/06/2014 7:15 PM [facility] Calcium 9.0 8.5 - 10.1 mg/dL 01/06/2014 7:15 PM [facility] Anion Gap 8 5 - 15 mmol/L 01/06/2014 7:15 PM [facility] BUN 12 7 - 21 mg/dL 01/06/2014 7:15 PM [facility] Creatinine 0.54 0.50 - 1.30 mg/dL 01/06/2014 7:15 PM [facility] eGFR by MDRD >60 >60 mL/min/1.7 3m2 01/06/2014 7:15 PM [facility] eGFR by MDRD >60 >60 mL/min/1.7 3m2 01/06/2014 7:15 PM [facility] Alkaline Phosphatase 138(H) 38 - 126 U/L 01/06/2014 7:15 PM [facility] ALT 74 12 - 78 U/L 01/06/2014 7:15 PM [facility] AST 66(H) 5 - 40 U/L 01/06/2014 7:15 PM [facility] Protein Total 9.0(H) 6.4 - 8.2 gm/dL 01/06/2014 7:15 PM [facility] Albumin 3.0(L) 3.4 - 5.0 gm/dL 01/06/2014 7:15 PM [facility] Bilirubin Total 0.5 0.2 - 1.0 mg/dL 01/06/2014 7:15 PM [facility] Blood BLOOD SPECIMEN / Unknown Venipuncture / Unknown 01/06/2014 6:51 PM CDT 01/06/2014 6:58 PM CDT Narrative [facility] - 01/06/2014 7:15 PM CDT Slight hemolysis. Garrett Graham MD LAB - CHEMISTRY SHRADDHA JOYA Performing Organization Address [facility] Co de Phone Number [facility] [address] [place] [address] * DIFFERENTIAL MANUAL (01/06/2014 6:51 PM CDT) WBC Auto 6.1 x10^9/L 01/06/2014 7:34 PM CDT [facility] Neutrophil % Manual 57 44 - 73 % 01/06/2014 7:34 PM CDT [facility] Lymphocytes % Manual 31 20 - 43 % 01/06/2014 7:34 PM CDT [facility] Monocytes % Manual 8 5 - 13 % 01/06/2014 7:34 PM CDT [facility] Eosinophils % Manual 2 0 - 6 % 01/06/2014 7:34 PM CDT [facility] Band % Manual 2 0 - 11 % 01/06/2014 7:34 PM CDT [facility] Cells Counted 100 # cells 01/06/2014 7:34 PM CDT [facility] RBC Morphology Normal 01/06/2014 7:34 PM T [facility] WBC Morph Normal 01/06/2014 7:34 PM CDT [facility] Blood BLOOD SPECIMEN / Unknown 01/06/2014 6:51 PM CDT 01/06/2014 6:58 PM CDT Garrett Graham MD LAB - HEMATOLOGY KRISTINA GILES Performing Organization Address [facility]/ZIP Co de Phone Number [facility] [address] [place] [address] * CARDIAC PROCEDURE ORDER (06/21/2009 5:37 PM [facility]) Narrative 06/21/2009 5:37 PM [facility] Ordered by an unspecified provider. Transcriptions Document, Scanned - 06/20/2009 12:00 AM [facility] Scanned Document CARDIAC SERVICES ORD ERABLES * IR FLUORO GUIDE FOR SPINAL INJECTION (06/20/2009 2:40 PM [facility]) Anatomical Region Laterality Modality Radiographic Eda ging 06/20/2009 4:43 PM [facility] Impressions 06/20/2009 5:22 PM [facility] Successful fluoroscopic guided cervical epidural steroid injection as described above. Narrative 06/20/2009 5:22 PM [facility] Fluoroscopic guided cervical epidural steroid injection Clinical Indication: Cervical radiculopathy, neck pain with radiating pain and numbness to the bilateral upper extremities, cervicalgia Physician: Dr. Rosales Complications: None Sedation: None Procedure/findings: The risks and benefits of the procedure were explained to the patient. The risks include but are limited to bleeding, infection, spinal cord injury, pain, nerve injury, failed procedure, nondiagnostic result. The patient was given ample time to ask questions. ??Following this both written and verbal informed consent was obtained. The patient was placed prone on the fluoroscopy table and the C7-T1 interspinous space was localized with fluoroscopic guidance. Following sterile prep and administration of 1% lidocaine local anesthesia an 18-gauge Tuohy needle with a air-filled glass loss of resistance syringe attached was slowly advance into the posterior epidural space at C7-T1. Once loss of resistance was noted a 0.5 cc Omnipaque-300 injection confirmed intra epidural position of the needle. Following this 40 mg of Kenalog diluted in 4 cc of normal saline was injected into the cervical epidural space. The injection resulted in transient neck pain which is a normal finding in this procedure. The needle system was removed and hemostasis achieved immediately after. The patient tolerated the procedure well. Procedure Note Tolu Rosales MD - 06/20/2009 Fluoroscopic guided cervical epidural steroid injection Clinical Indication: Cervical radiculopathy, neck pain with radiating pain and numbness to the bilateral upper extremities, cervicalgia Physician: Dr. Rosales Complications: None Sedation: None Procedure/findings: The risks and benefits of the procedure were explained to the patient. The risks include but are limited to bleeding, infection, spinal cord injury, pain, nerve injury, failed procedure, nondiagnostic result. The patient was given ample time to ask questions. Following this both written and verbal informed consent was obtained. The patient was placed prone on the fluoroscopy table and the C7-T1 interspinous space was localized with fluoroscopic guidance. Following sterile prep and administration of 1% lidocaine local anesthesia an 18-gauge Tuohy needle with a air-filled glass loss of resistance syringe attached was slowly advance into the posterior epidural space at C7-T1. Once loss of resistance was noted a 0.5 cc Omnipaque-300 injection confirmed intra epidural position of the needle. Following this 40 mg of Kenalog diluted in 4 cc of normal saline was injected into the cervical epidural space. The injection resulted in transient neck pain which is a normal finding in this procedure. The needle system was removed and hemostasis achieved immediately after. The patient tolerated the procedure well. IMPRESSION Successful fluoroscopic guided cervical epidural steroid injection as described above. Katlyn Childers MD IR ORDERABLES * MRI SPINE LUMBAR NON CONTRAST (06/06/2009 5:54 PM CDT) Anatomical Region Laterality Modality Spine Magnetic Resonan ce 06/06/2009 6:22 PM CDT Impressions 06/06/2009 7:04 PM CDT ??Multiple hemangiomata scattered throughout the spine. Broad-based disc bulge and facet degenerative changes noted at L4-L5. Narrative 06/06/2009 7:04 PM CDT Indication: Abdominal pain, low back pain Technique: Sagittal T1 and T2 and STIR images of the lumbosacral spine are performed. Axial T1 and T2-weighted images performed as well. Findings: There are several foci of high T1 and T2 signal throughout the lumbosacral spine. These findings likely consistent with hemangiomata. These are mildly hyperintense on the STIR images. The following levels are considered directly in the axial plane. L4-L5 significant facet arthropathy and a broad-based disc bulge causing mild central canal narrowing. L3-L4 no critical narrowing. L2-L3 no critical narrowing. Procedure Note Zee Tamayo - 06/06/2009 Indication: Abdominal pain, low back pain Technique: Sagittal T1 and T2 and STIR images of the lumbosacral spine are performed. Axial T1 and T2-weighted images performed as well. Findings: There are several foci of high T1 and T2 signal throughout the lumbosacral spine. These findings likely consistent with hemangiomata. These are mildly hyperintense on the STIR images. The following levels are considered directly in the axial plane. L4-L5 significant facet arthropathy and a broad-based disc bulge causing mild central canal narrowing. L3-L4 no critical narrowing. L2-L3 no critical narrowing. IMPRESSION Multiple hemangiomata scattered throughout the spine. Broad-based disc bulge and facet degenerative changes noted at L4-L5. Katlyn Childers MD MR ORDERABLES * MRI SHOULDER RIGHT WO CONTR (05/12/2009 10:50 AM CDT) Anatomical Region Laterality Modality Magnetic Resonan ce 05/12/2009 1:13 PM CDT Impressions 05/12/2009 3:55 PM CDT The rotator cuff is intact but has stripes of increased signal suggesting either tendinopathy or perhaps a small undersurface tear. Arthritic changes can be seen at the AC joint with mild impingement upon the subacromial fat pad. Narrative 05/12/2009 3:55 PM CDT MRI Right Shoulder Indication: Right shoulder pain. Patient complains of a right shoulder popping sensation. Technique: Noncontrast images of the right shoulder were performed in the axial, sagittal and coronal planes using a variety of sequences. Findings: The rotator cuff is intact on the coronal T2-weighted images. A stripe of abnormal signal can be seen in the inferior edge of the rotator cuff. There is also a stripe of increased signal in the adjacent humeral head. The coronal proton density images show hypertrophic changes of the AC joint but this is primarily along the superior edge of the joint. Only a mild degree of compression of the subacromial fat pad is noted. Procedure Note Ze Avila MD - 05/12/2009 MRI Right Shoulder Indication: Right shoulder pain. Patient complains of a right shoulder popping sensation. Technique: Noncontrast images of the right shoulder were performed in the axial, sagittal and coronal planes using a variety of sequences. Findings: The rotator cuff is intact on the coronal T2-weighted images. A stripe of abnormal signal can be seen in the inferior edge of the rotator cuff. There is also a stripe of increased signal in the adjacent humeral head. The coronal proton density images show hypertrophic changes of the AC joint but this is primarily along the superior edge of the joint. Only a mild degree of compression of the subacromial fat pad is noted. IMPRESSION The rotator cuff is intact but has stripes of increased signal suggesting either tendinopathy or perhaps a small undersurface tear. Arthritic changes can be seen at the AC joint with mild impingement upon the subacromial fat pad. Katlyn Childers MD MR ORDERABLES * MRI SPINE CERVICAL NON CONTRAST (05/12/2009 10:12 AM CDT) Anatomical Region Laterality Modality Pelvis Magnetic Resonan ce 05/12/2009 2:00 PM CDT Impressions 05/12/2009 3:55 PM CDT A disc spur complex is present at C6-C7 centrally and to the left. This contacts the spinal cord on the left. Smaller noncontacting disc spur complexes can be seen at C4-C5 and C5-C6. Please see above for additional findings. Narrative 05/12/2009 3:55 PM CDT MRI CERVICAL SPINE WITHOUT CONTRAST CLINICAL INDICATION: Neck pain extending across the right shoulder and into the right upper extremity to the hand. TECHNIQUE: Sagittal T1 and T2 weighted images, axial noncontrast images were performed. FINDINGS: The sagittal images show disc spur complexes at C6-C7, C5-C6 and C4-C5. The most significant lesion is at C6-C7. This contacts the anterior surface of the spinal cord on the left. The left hemicord is reduced in size. The other disc spur complexes do not appear to contact the spinal cord because CSF can be seen anterior to the cord. No focal signal abnormality can be identified in the cervical spinal cord on the sagittal T2-weighted images. Mild disc space narrowing is present at C5-C6 and C6-C7. Procedure Note Ze Avila MD - 05/12/2009 MRI CERVICAL SPINE WITHOUT CONTRAST CLINICAL INDICATION: Neck pain extending across the right shoulder and into the right upper extremity to the hand. TECHNIQUE: Sagittal T1 and T2 weighted images, axial noncontrast images were performed. FINDINGS: The sagittal images show disc spur complexes at C6-C7, C5-C6 and C4-C5. The most significant lesion is at C6-C7. This contacts the anterior surface of the spinal cord on the left. The left hemicord is reduced in size. The other disc spur complexes do not appear to contact the spinal cord because CSF can be seen anterior to the cord. No focal signal abnormality can be identified in the cervical spinal cord on the sagittal T2-weighted images. Mild disc space narrowing is present at C5-C6 and C6-C7. IMPRESSION A disc spur complex is present at C6-C7 centrally and to the left. This contacts the spinal cord on the left. Smaller noncontacting disc spur complexes can be seen at C4-C5 and C5-C6. Please see above for additional findings. Katlyn Childers MD MR ORDERABLES * XR SHOULDER MIN 3 VIEWS RIGHT (04/28/2009 4:02 PM CDT) Anatomical Region Laterality Modality Radiographic Eda ging 04/28/2009 4:33 PM CDT Narrative 04/28/2009 4:40 PM CDT Indication: Pain right shoulder Examination of the right shoulder AP internal/external and Y reveals no apparent recent fracture, dislocation, focal bone production or destruction. Summary: Right shoulder - essentially negative. ??If significant symptoms persist, follow-up examination within 7-10 days to perhaps include a bone scan may be of value for evidence of occult osseous changes. Procedure Note Lazaro Sprague MD - 04/28/2009 Indication: Pain right shoulder Examination of the right shoulder AP internal/external and Y reveals no apparent recent fracture, dislocation, focal bone production or destruction. Summary: Right shoulder - essentially negative. If significant symptoms persist, follow-up examination within 7-10 days to perhaps include a bone scan may be of value for evidence of occult osseous changes. Tony Leonard DO DIAGNOSTIC IMAGING ORDERABLES * XR LUMBAR SPINE 4+ VW (04/28/2009 4:02 PM CDT) Anatomical Region Laterality Modality Spine Radiographic Eda ging 04/28/2009 4:13 PM CDT Narrative 04/28/2009 4:29 PM CDT Indication: Pain lower back Examination of the lumbosacral spine AP, lateral, both obliques reveals what appears be 6 functional lumbar vertebral bodies. ??There is slight anterior displacement of L5 on L6 which may be due to degenerative changes of the facet joints at this L5-L6 level. ??The vertebral bodies are otherwise normally aligned and the intervertebral spaces are of average width. ??Significant sclerotic and bone overgrowth changes are noted about the facet joints at the L5 and L6 levels given that there are 6 functional lumbar vertebral bodies. There is hypertrophic spurring and bridging noted in the lower thoracic spine. Mild hypertrophic spurring is noted about the anterolateral margins of the upper 3 and the lower 2 lumbar vertebral bodies. ??No apparent recent fracture or dislocation is otherwise noted at this time. Summary: Apparent 6 functional lumbar vertebral bodies with slight anterior displacement in the range of 0.5 cm of L5 on L6. Significant degenerative sclerotic and bone overgrowth changes at the L5-L6 levels. Scattered hypertrophic spurring in the upper and lower lumbar spine and to some degree in the lower thoracic spine. Procedure Note Lazaro Sprague MD - 04/28/2009 Indication: Pain lower back Examination of the lumbosacral spine AP, lateral, both obliques reveals what appears be 6 functional lumbar vertebral bodies. There is slight anterior displacement of L5 on L6 which may be due to degenerative changes of the facet joints at this L5-L6 level. The vertebral bodies are otherwise normally aligned and the intervertebral spaces are of average width. Significant sclerotic and bone overgrowth changes are noted about the facet joints at the L5 and L6 levels given that there are 6 functional lumbar vertebral bodies. There is hypertrophic spurring and bridging noted in the lower thoracic spine. Mild hypertrophic spurring is noted about the anterolateral margins of the upper 3 and the lower 2 lumbar vertebral bodies. No apparent recent fracture or dislocation is otherwise noted at this time. Summary: Apparent 6 functional lumbar vertebral bodies with slight anterior displacement in the range of 0.5 cm of L5 on L6. Significant degenerative sclerotic and bone overgrowth changes at the L5-L6 levels. Scattered hypertrophic spurring in the upper and lower lumbar spine and to some degree in the lower thoracic spine. Tony Leonard DO DIAGNOSTIC IMAGING ORDERABLES * XR LEFT ANKLE (11/20/2008 10:20 PM CDT) Anatomical Region Laterality Modality Lower Extremity Radiographic Eda ging 11/21/2008 11:1 3 AM CDT Impressions 11/21/2008 3:55 PM CDT No fracture or dislocation identified. ??See above. ? Narrative 11/21/2008 3:55 PM CDT Examination: Left ankle three views Indication: ??Left ankle pain. trauma. No fracture or dislocation identified. The joint alignment is normal. Bone mineral content is within expected range for the patient's stated age. Soft tissue swelling is noted at the ankle. If the patient's symptoms persist or worsen, consideration may be given to an alternative imaging modality such as an MRI or bone scan to check for an occult process. Procedure Note Ze Avila MD - 11/21/2008 Examination: Left ankle three views Indication: Left ankle pain. trauma. No fracture or dislocation identified. The joint alignment is normal. Bone mineral content is within expected range for the patient's stated age. Soft tissue swelling is noted at the ankle. If the patient's symptoms persist or worsen, consideration may be given to an alternative imaging modality such as an MRI or bone scan to check for an occult process. IMPRESSION No fracture or dislocation identified. See above. Felicity A Petralia DO DIAGNOSTIC IMAGING O RDERABLES * XR LEFT KNEE 4+ VIEWS (11/20/2008 10:18 PM CDT) Anatomical Region Laterality Modality Lower Extremity Radiographic Eda ging 11/21/2008 11:1 2 AM CDT Impressions 11/21/2008 3:55 PM CDT No fracture or dislocation identified. ??See above. ? Narrative 11/21/2008 3:55 PM CDT Examination: Left knee four views Indication: ??Trauma. Fell. Knee pain. No fracture or dislocation identified. The joint alignment is normal. Bone mineral content is within expected range for the patient's stated age. If the patient's symptoms persist or worsen, consideration may be given to an alternative imaging modality such as an MRI or bone scan to check for an occult process. Procedure Note Ze Avila MD - 11/21/2008 Examination: Left knee four views Indication: Trauma. Fell. Knee pain. No fracture or dislocation identified. The joint alignment is normal. Bone mineral content is within expected range for the patient's stated age. If the patient's symptoms persist or worsen, consideration may be given to an alternative imaging modality such as an MRI or bone scan to check for an occult process. IMPRESSION No fracture or dislocation identified. See above. Felicity A Petralia DO DIAGNOSTIC IMAGING O RDERABLES * XR LEFT FOOT (11/20/2008 10:18 PM CDT) Anatomical Region Laterality Modality Ankle / Foot Radiographic Eda ging 11/20/2008 11:2 4 PM CDT Impressions 02/17/2009 2:44 PM CDT No fracture or dislocation identified. ??See above. ? Narrative 02/17/2009 2:44 PM CDT Examination: Left foot 3 views Indication: ??Left foot pain. Injury. Fell. No fracture or dislocation identified. The joint alignment is normal. Bone mineral content is within expected range for the patient's stated age. If the patient's symptoms persist or worsen, consideration may be given to an alternative imaging modality such as an MRI or bone scan to check for an occult process. Procedure Note Ze Avila MD - 02/17/2009 Examination: Left foot 3 views Indication: Left foot pain. Injury. Fell. No fracture or dislocation identified. The joint alignment is normal. Bone mineral content is within expected range for the patient's stated age. If the patient's symptoms persist or worsen, consideration may be given to an alternative imaging modality such as an MRI or bone scan to check for an occult process. IMPRESSION No fracture or dislocation identified. See above. Felicity Gomez DO DIAGNOSTIC IMAGING O RDERABLES * GROSS + MICRO EXAM (09/24/2008 1:15 PM [facility]) Only the most recent of3 resultswithin the time period is included. Pathologist [facility] Result CASE NUMBER [id number] Comment: ORDERING PHYSICIAN ??CONNOR LEON SPECIMEN TYPE ?Hematoma DATE OF PROCEDURE ?09/24/2008 SPECIMEN LABELED ? Hematoma left thigh PRE-OP DIAGNOSIS ? Cellulitis left leg GROSS DESCRIPTION ? GROSS DESCRIPTION The specimen is received in formalin labeled hematoma left thigh patient Ally Nathan Yanes, and consists of multiple fragments of red and pink tissue having an aggregate weight of 4 grams. The fragments range in size from 7 mm to 2 cm. Some of the larger fragments appear to be segments of blood vessels with blood clots. Devops Consultant sections are submitted in cassettes A1 and A2. Dictated by ? Dr. Kavon Hammond M.D. MICROSCOPIC DESCRIPTION Sections show fragments of blood vessels consistent with vein. ??Most of them are dilated and contain recent thrombi. ??There is inflammation of the vessel wall, as well as the small amount of adjacent soft tissue included. ??The histologic changes are consistent with thrombophlebitis. DIAGNOSIS Specimen submitted as hematoma, left thigh , resection ? fragments of vein with changes consistent with thrombophlebitis (please see ?gross and microscopic description). Dictated by ? Dr. Kavon Hammond Research And Development Engineer ? ALLY GROSS Electronically Signed By ? DOREEN HAMMOND MISCELLANEOUS SAMPLES / Unknown 09/24/2008 1:15 PM [facility] 09/24/2008 2:19 PM [facility] Historical Provider LAB - PATHOLOGY/C YTOLOGY ORDERABLES * CULTURE WOUND (09/24/2008 1:15 PM [facility]) Result [facility] Comment: Final ACCN COMMENT ??Hematoma - left leg - septic thromb* GRAM STAIN Heavy rbc's Rare WBC's No organisms seen ?? CULTURE No growth. HEMATOMA / Unknown 9 1:15 PM [facility] 09/24/2008 2:27 PM [facility] Narrative Resulting Agency Comment Performed By [facility] ? [address] ? [place] [address] Connor Leon MD LAB - MICROBIOLOGY O RDERABLES [facility] * CULTURE FLUID (03/29/2008 11:00 AM CDT) Result [facility] Comment: Final GRAM STAIN Moderate WBC's No organisms seen ?? CULTURE swab sent No growth. 03/29/2008 11:0 0 AM CDT 03/29/2008 12:10 PM CDT Narrative Resulting Agency Comment Performed By [facility] ? [address] ? [place] [address] Connor Leon MD LAB - MICROBIOLOGY O RDERABLES [facility] * US GUIDE NEEDLE PLACEMENT (03/29/2008 10:33 AM CDT) Anatomical Region Laterality Modality Abdomen, Lung, Chest, Breast Oth er 03/29/2008 10:3 3 AM CDT Narrative 03/29/2008 2:23 PM CDT Ultrasound-guided aspiration and drainage of anterior abdominal wall seroma Indication- Abdominal pain, postoperative seroma. Findings- The examination was performed in the ultrasound department by Dr. Reyna. After appropriate consent was obtained and the risks and benefits of the procedure were described including but not limited to bleeding and infection, patient agreed via verbal and written consent to proceed with the procedure. Ultrasound was performed, which showed the anterior abdominal wall fluid collection measuring at least 11.2 x 16.1 x 4.86 cm for a total estimated volume of 458 cc. The appearance is most consistent with a seroma. The region just to the right of the midline, where the largest collection was noted, was prepped and draped in the usual sterile fashion. 1% lidocaine without epinephrine was used to infiltrate the skin and subcutaneous tissue. 19-gauge 5 Guyanese catheter was then placed under ultrasound into the collection and the needle was removed. The catheter was secured to the sterile tubing and placed into the Vacutainer. Approximately 425 cc of yellow fluid was obtained and a portion sent to the laboratory for evaluation. The catheter was removed. The patient tolerated the procedure well without complications. Postprocedure ultrasound shows small amount of residual collection in the anterior abdominal wall. Impression- Successful ultrasound-guided aspiration of fluid collection in the anterior abdominal wall, as described. ? Reading Radiologist- KELTON REYNA ??M.D. ? Releasing Radiologist- KELTON REYNA ??M.D. ? Released Date Time- 03/29/08 1423 ? ADM- CAROLYN,CONNOR ? ATT- CAROLYN,CONNOR REF- ?CON- PCP- TONY LEONARD ?SCP- Procedure Note Kelton Reyna - 03/29/2008 Ultrasound-guided aspiration and drainage of anterior abdominal wall seroma Indication- Abdominal pain, postoperative seroma. Findings- The examination was performed in the ultrasound department by Dr. Reyna. After appropriate consent was obtained and the risks and benefits of the procedure were described including but not limited to bleeding and infection, patient agreed via verbal and written consent to proceed with the procedure. Ultrasound was performed, which showed the anterior abdominal wall fluid collection measuring at least 11.2 x 16.1 x 4.86 cm for a total estimated volume of 458 cc. The appearance is most consistent with a seroma. The region just to the right of the midline, where the largest collection was noted, was prepped and draped in the usual sterile fashion. 1% lidocaine without epinephrine was used to infiltrate the skin and subcutaneous tissue. 19-gauge 5 Guyanese catheter was then placed under ultrasound into the collection and the needle was removed. The catheter was secured to the sterile tubing and placed into the Vacutainer. Approximately 425 cc of yellow fluid was obtained and a portion sent to the laboratory for evaluation. The catheter was removed. The patient tolerated the procedure well without complications. Postprocedure ultrasound shows small amount of residual collection in the anterior abdominal wall. Impression- Successful ultrasound-guided aspiration of fluid collection in the anterior abdominal wall, as described. Reading Radiologist- KELTON REYNA M.D. Releasing Radiologist- KELTON REYNA M.D. Released Date Time- 03/29/08 1423 ADM- CONNOR LEON ATT- CONNOR LEON REF- CON- PCP- TONY LEONARD SCP- Connor Leon MD ORDERABLES Care Teams Embedded Firmware Developer Relationship Specialty Start Date End Date Noé Lew MD [facility] [place] [address] PCP - General Internal Medicine 07/04/24 Janny Torres MD [address] [place] [address] [id number] [place] [phone] Physician Urology 05/07/24
--- OUTSIDE RECORDS SUMMARY | 2024-09-08 14:28 | XMS_ITS | Encounter Summary ---
Author Organization [facility] Address [address] [place] [address] Care Team Providers Care Caustics Loader Name Role Phone Martha Arriaga MD Primary Care Provid er Encounter Details Date Type Department Care Team (Latest Contact Info) Description 09/03/2002 Outpatient Historical [facility] [place] [address] [facility] [place] [address] PERS HX CIRCULATORY DIS NEC (Primary Dx) Social History Tobacco Use Types Packs/Day Years Used Date Smoking Tobacco: Never Assessed Comments Unknown Sex and Gender Information Value Date Recorded Sex Assigned at Not on file 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
--- OUTSIDE RECORDS SUMMARY | 2024-09-08 14:28 | XMS_ITS | Encounter Summary ---
Author Organization [facility] Address 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
--- OUTSIDE RECORDS SUMMARY | 2024-09-08 14:28 | XMS_ITS | Encounter Summary ---
Author Organization 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 No 01/06/2014 documented as of this encounter Plan of Treatment Upcoming Encounters Date Type Department Care Team (Late st Contact Info) Description 05/06/2025 10:00 AM CDT Office Visit [facility] Medical [facility] - Urology [address], [address] [place] [phone] Janny Torres MD [facility] [place] [phone] documented as of this encounter Visit Diagnoses Not on filedocumented in this encounter Care Teams Package Yarns Drying Machine Operator Relationship Specialty Start Date End Date Noé Lew MD [address] [place] [phone] PCP - General Internal Medicine 07/04/24 Janny Torres MD [facility] [address] [place] [address] Physician Urology 05/07/24 documented as of this encounter
--- OUTSIDE RECORDS SUMMARY | 2024-09-08 14:28 | XMS_ITS | Encounter Summary ---
Author Organization [facility] Address [address] [place] [address] Care Team Providers Care Court Worker Name Role Phone Martha Arriaga MD Primary Care Provid er Encounter Details Date Type Department Care Team (Late st Contact Info) Description 09/01/2001 Outpatient Historical [facility] Internal Medicine Medical [place] [facility] [address] [facility] [address] [address] Frankie Raygoza MD NO ADDRESS ON FILE Social History Tobacco Use Types Packs/Day Years Used Date Smoking Tobacco: Never Assessed Comments Unknown Sex and Gender Information Value Date Recorded Sex Assigned at Not on file 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
--- OUTSIDE RECORDS SUMMARY | 2024-09-08 14:28 | XMS_ITS | Encounter Summary ---
Author Organization [facility] Address [address] [place] [address] Care Team Providers Care Travel Rn Name Role Phone Martha Arriaga MD Primary Care Provid er Encounter Details Date Type Department Care Team (Late st Contact Info) Description 07/25/2004 Outpatient Historical 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
--- OUTSIDE RECORDS SUMMARY | 2024-09-08 14:28 | XMS_ITS | Encounter Summary ---
Author Organization [facility] Address [address] [place] [address] Care Team Providers Care Clinic Office Coordinator Name Role Phone Martha Arriaga MD Primary Care Provid er Encounter Details Date Type Department Care Team (Latest Contact Info) Description 07/25/2004 Outpatient Historical [facility] [address] [place] [address] Luis Carlos Saldaña OPEN WOUND KNEE/LEG-COMPL (Primary Dx) Social History Tobacco Use Types Packs/Day Years Used Date Smoking Tobacco: Never Assessed Comments Unknown Sex and Gender Information Value Date Recorded Sex Assigned at Not on file 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
--- OUTSIDE RECORDS SUMMARY | 2024-09-08 14:28 | XMS_ITS | Encounter Summary ---
Author Organization [facility] Address 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
--- OUTSIDE RECORDS SUMMARY | 2024-09-08 14:28 | XMS_ITS | Clinical Summary ---
Author Organization [facility] Address [address] [place] [address] Phone Care Team Providers Care Paint Stock Clerk Name Role Phone Martha Arriaga MD Primary Care Provid er Allergies Active Allergy Reactions Criticality Noted Date Comments Codeine 02/18/2003 Erythromycin 02/18/2003 Meperidine 02/18/2003 Methocarbamol 02/18/2003 Naproxen 02/18/2003 Active Problems Problem Noted Date Diagnosed Date Cellulitis and abscess of unspecified site 06/07 Pain in limb 05/15/2004 Type II or unspecified type diabetes mellitus with other specified manifestations, not stated as uncontrolled 07/12/2003 Family History Medical History Relation Name Comments Breast Cancer Mother Ovarian Cancer Neg Hx Relation Name Status Comments Mother Social History Tobacco Use Types Packs/Day Years Used Date Smoking Tobacco: Never Assessed Comments Unknown Sex and Gender Information Value Date Recorded Sex Assigned at Not on file 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 Gender Identity Not on file Sexual Orientation Not on file Last Filed Vital Signs Vital Sign Reading Time Taken Comments Blood Pressure 120/72 06/07/2004 9:15 AM CDT Pulse 78 06/07/2004 9:15 AM CDT Temperature - - Respiratory Rate - - Oxygen Saturation - - Inhaled Oxygen Concentration - - Weight 125.2 kg (276 lb) 06/07/2004 9:15 AM CDT Height - - Body Mass Index - - Plan of Treatment Health Maintenance Due Date Last Done Comments DIABETES ANNUAL FOOT EXAM 1972 DIABETES ANNUAL RETINAL EXAM 1972 DIABETES HBA1C Q 6 MONTHS 1972 DIABETES MICROALBUMIN ANNUAL SCREEN 1972 LDL CHOLESTEROL ANNUAL 1972 DTAP/TDAP/TD VACCINES (1 - Tdap) 1973 PNEUMOCOCCAL VACCINE 65+ YEA RS (1 of 2 - PCV) 1973 COLORECTAL SCREENING 1999 Colorectal Cancer Screening 1999 FIT-DNA Q 3 years 1999 FIT/FOBT Q 1 year 1999 Flex Sig/CT Colonography Q 5 years 1999 ZOSTER VACCINE (1 of 2) 2004 RSV VACCINE (60+ or ) (1 - Risk 60-74 years 1-dose series) 2014 OSTEOPOROSIS SCREENING 2019 BREAST CANCER SCREENING 05/10/2021 05/10/2020, 05/17 INFLUENZA VACCINE (#1) 2024 Procedures Procedure Name Priority Date/Time Associated Diagnosis Comments MAMMO SCREEN BILAT W OR WO CAD Routine 05/10/2020 10:49 AM CDT Breast cancer screening by mammogram from Last 3 Months or Most Recently Relevant to Health Maintenance Results * MAMMO SCREEN BILAT W OR WO CAD (05/10/2020 10:49 AM CDT) Anatomical Region Laterality Modality Breast Bilateral Mammography 05/10/2020 10:4 9 AM CDT Impressions 05/11/2020 4:58 PM CDT IMPRESSION: No suspicious findings to suggest malignancy in either breast. Annual mammography is recommended. OVERALL FINAL ASSESSMENT: ??BI-RADS CATEGORY 1: Negative Narrative 05/11/2020 4:58 PM CDT BILATERAL SCREENING DIGITAL MAMMOGRAM WITH CAD DATE: 05/10/2020 10:49 AM HISTORY: Routine screening. DICTATION LOCATION: [facility] TECHNIQUE: Full-field digital craniocaudal and mediolateral oblique projections of both breasts were obtained. Computer aided diagnosis was performed. COMPARISON: 05/17/2017, 04/07/2012 BREAST COMPOSITION: Scattered fibroglandular densities FINDINGS: No suspicious mass, suspicious microcalcifications, or architectural distortion is identified in either breast. Computer aided detection was used in the interpretation of this examination. Procedure Note Vale Burkett MD - 05/11/2020 BILATERAL SCREENING DIGITAL MAMMOGRAM WITH CAD DATE: 05/10/2020 10:49 AM HISTORY: Routine screening. DICTATION LOCATION: [facility] TECHNIQUE: Full-field digital craniocaudal and mediolateral oblique projections of both breasts were obtained. Computer aided diagnosis was performed. COMPARISON: 05/17/2017, 04/07/2012 BREAST COMPOSITION: Scattered fibroglandular densities FINDINGS: No suspicious mass, suspicious microcalcifications, or architectural distortion is identified in either breast. Computer aided detection was used in the interpretation of this examination. IMPRESSION: No suspicious findings to suggest malignancy in either breast. Annual mammography is recommended. OVERALL FINAL ASSESSMENT: BI-RADS CATEGORY 1: Negative Martha Arriaga MD MAMMO ORDERABLES Fin al Result from Last 3 Months or Most Recently Relevant to Health Maintenance Insurance [facility] [id number] Care Teams Paint Stock Clerk Relationship Specialty Start Date End Date Martha Arriaga MD PCP - General Internal Medicine 05/10/20
--- OUTSIDE RECORDS SUMMARY | 2024-09-08 14:28 | XMS_ITS | Encounter Summary ---
Author Organization [facility] Address [address] [place] [address] Care Team Providers Care Die Stamping Press Operator Name Role Phone Janny Torres MD Unavailable Noé Lew MD Primary Care Provider [phone] Reason for Visit * Reason Comments Establish Care Encounter Details Date Type Department Care Team (Latest Contact Info) Description 09/07/2024 10:00 AM ELECTRICAL ENGINEERING TECHNICIAN Office Visit [facility] - Rheumatology [address] [place] [address], [place] [address] Gaby Lion MD [address] [place] [address] [place] [address] Ribonucleoprotein antibody positive (Primary Dx) Social History Tobacco Use Types [...] Sex Assigned at Female 07/19/2022 2:59 PM ELECTRICAL ENGINEERING TECHNICIAN Gender Identity Female 07/19/2022 2:59 PM ELECTRICAL ENGINEERING TECHNICIAN Sexual Orientation Straight 07/19/2022 2: 59 PM ELECTRICAL ENGINEERING TECHNICIAN Travel History Travel Start Travel End [place] 09/07/2024 09/07/2024 documented as of this encounter Last Filed Vital Signs Vital Sign Reading Time Taken Comments Blood Pressure 151/94 09/07/2024 9:55 AM ELECTRICAL ENGINEERING TECHNICIAN Pulse 90 09/07/2024 9:55 AM ELECTRICAL ENGINEERING TECHNICIAN Temperature 36.6 ??C (97.9 ??F) 09/07/2024 9:55 AM CS T Respiratory Rate - - Oxygen Saturation 92% 09/07/2024 9:55 AM ELECTRICAL ENGINEERING TECHNICIAN Inhaled Oxygen Concentration - - Weight 150.1 kg (331 lb) 09/07/2024 9:55 AM ELECTRICAL ENGINEERING TECHNICIAN Height 165.1 cm (5' 5 ) 09/07/2024 9:55 AM ELECTRICAL ENGINEERING TECHNICIAN Body Mass Index 55.08 09/07/2024 9:55 AM ELECTRICAL ENGINEERING TECHNICIAN documented in this encounter Functional Status Functional Status Response [...] No 01/06/2014 documented as of this encounter Progress Notes * Gaby Lion MD - 09/07/2024 10:10 AM CST Images from the original note were not included. Rheumatology Clinic Note Patient: Ally Ayala ( 1955, ) Encounter Date: 09/07/2024 Chief Concern: BRIDGER direct +, MUSIC ADAPTER(1.0) Assessment & Recommendations Ally Ayala is a 69 year old female seen as new consult for evaluation of positive BRIDGER and MUSIC ADAPTER antibodies.Records from PCP and Hematology office reviewed. #. MUSIC ADAPTER Abs(1.0) - Onset 2024. Phenotype. Patient has generalized osteoarthritis based on history and physical exam.MUSIC ADAPTER is borderline elevated and that is why BRIDGER was reported as positive. Rest of MAGNUS profile negative. I reviewed with the patient interpretation of +BRIDGER, its prevalence in general population and association with medications, infections, malignancies and other diseases like autoimmune thyroid diseases. At present, BRIDGER is likely incidental finding, nonspecific and not related to patient's symptoms. Currently, there is no specific clinical features of primary systemic autoimmune rheumatic diseases. #. Follow-up: if needed. Thank you for placing trust in us. I educated the patient regarding risks and benefits of the management plan, their medical problems, and contingency plans for worsening symptoms. Additional contributions to medical decision making for today's encounter: - The patient is on drug therapy requiring intensive monitoring for toxicity. - I reviewed the patient's chart including review of clinical notes, laboratory results, and imaging results dating back to 08/23/2024. - Total time spent reviewing records, conducting interview and physical, counseling, care coordination, placing any orders for investigative studies and/or medications, and documentation: 30 minutes. Gaby Lion MD Division of Rheumatology Department of Internal Medicine [facility] Encounter Diagnoses, Orders, and Future Appointments: 1. Ribonucleoprotein antibody positive No orders of the defined types were placed in this encounter. Future Appointments Date Time Provider Department Center 05/06/2025 10:00 AM Janny Torres MD [facility] None Subjective History of Present Illness: She has hx of OA and DVTs and BRIDGER was ordered as part of workup of Joints pain. She has knee, hips and shoulders pain over 20 years. She has DJD of spine and has seen Orthopodics in the past and was told she has OA s/p IA steroid injections. She has DVTs in the past, last one over 20 years ago and was on AC(coumadin) for 1.5 weeks and had to stop due to allergic reaction. She was on heparin during her . 2 first trimester miscarriage and one 3rd trimester miscarriage. She has Factor 5 Leidein heterozygous mutation and sees outside Hematology. No photosensitivity or recurrent mouth sores. Review of Systems: Negative except as stated in the HPI. Home Medications: Current Outpatient Medications: vitamin D, ergocalciferol, (Drisdol) 1.25 MG (07892 UT) capsule, 1 (one) capsule every 7 days, Disp: , Rfl: Adverse Drugs Reactions: Allergies Allergen Reactions Latex Rash Contact; bandaids and condoms Codeine Anaphylaxis Contrast-Iodinated Agents For Ct/Other Nausea and/or Vomiting Naproxen Unknown Coumadin Rash Lavender Oil Shortness of Breath Methocarbamol Demerol Anxiety Erythromycin Rash Other Urticaria IVP dye Iodine Unknown Past Medical History: Patient Active Problem List: Fall from other slipping, tripping, or stumbling Leg swelling Cellulitis Right renal stone Past Medical History: Diagnosis Date Acid reflux Blood clot in the legs bilateral & lung Clotting disorder (HCC) MTHFR, Factor 5 Past Surgical History: Past Surgical History: Procedure Laterality Date Cholecystectomy Cyst Incision and Drainage right leg CYSTOSCOPY Left 08/22/2022 Left; CYSTOSCOPY WITH REMOVAL URETERAL STENT HC DILATATION & CURETTAGE HERNIA REPAIR, VENTRAL 08/12/2007 x 2 Lithotripsy Left 08/22/2022 Left; EXTRACORPOREAL SHOCK WAVE LITHOTRIPSY (ESWL) NEPHROLITHOTOMY Right 10/05/2022 Right; PERCUTANEOUS NEPHROLITHOTOMY OTHER SURGERY ileal-jejunal bypass OTHER SURGERY re concst of ileal - jejunal bypass SMALL BOWEL RESECTION, PARTIAL 08/12/2007 Tonsillectomy x 2 Immunization History: There is no immunization history on file for this patient. Social History: Social History Socioeconomic History Marital status: Tobacco Use Smoking status: Former Current packs/day: 0.00 Average packs/day: 1 pack/day for 40.0 years (40.0 ttl pk-yrs) Types: Cigarettes Start date: 03/15/1973 Quit date: 03/15/2013 Years since quittin.4 Vaping Use Vaping status: Former Substance and Sexual Activity Alcohol use: No Drug use: No Sexual activity: Not Currently Family History: Family History Problem Relation Name Age of Onset Diabetes Father Asthma Sister ##Sister1 Migraine Sister ##Sister1 Cancer Brother ##Brother1 Diabetes Brother ##Brother1 Hypertension Brother ##Brother1 Hypertension Maternal Uncle ##Mat Uncle1 Heart Failure Paternal Uncle ##Pat Uncle1 Cancer Maternal Grandmother Diabetes Maternal Grandmother Hypertension Maternal Grandmother Stroke Maternal Grandmother Diabetes Maternal Grandfather Hypertension Maternal Grandfather Diabetes Paternal Grandmother Hypertension Paternal Grandmother Diabetes Paternal Grandfather Hypertension Paternal Grandfather Bipolar Disorder Other ##OTHER1 Patient Care Team: Patient Care Team: Noé Lew MD as PCP - General (Internal Medicine) Janny Torres MD as Physician (Urology) Objective Physical Exam BP 151/94 Pulse 90 Temp 97.9 ??F (36.6 ??C) Ht 1.651 m (5' 5 ) Wt (!) 150.1 kg (331 lb) LMP 06/19/2008 SpO2 92% BMI 55.08 kg/m?? GENERAL: not in acute distress HEENT/NECK: Eyes with white sclerae. No oropharyngeal lesions. CHEST/LUNGS: Normal work of breathing on inspection CARDIOVASCULAR: No edema. SKIN/NAILS: No active rashes . No sclerodactyly, calcinosis. NEURO: Normal muscle bulk and strength in limbs. MSK: B/l knee crepitus. Small and large joints of the appendicular skeleton were without signs of synovitis, enthesitis, dactylitis or joint effusion. Common Labs CBC Recent Labs Component Name 05/16/23 0831 10/05/22 1654 10/05/22 0924 WBC 6.0 9.0 6.1 HGB 12.4 12.8 13.2 MCV 83.4 85.3 83.3 PLTCOUNT 187 211 214 Lab Results Component Value Date/Time NEUTABS 3.27 05/16/2023 08:31 AM GRANIMMABS 0.01 05/16/2023 08:31 AM Metabolic Profile Recent Labs Component Name 07/04/24 1606 05/16/23 0831 05/03/23 1047 10/05/22 0924 POTASSIUM - 4.0 4.1 4.0 CO2 - 29 27 20* BUN - 20 19 25* CREATININE - 1.37* 1.26* 1.25* GLUCOSE - 107* 116* 132* CALCIUM - 9.4 9.3 9.3 ANIONGAP - 10 - 12 EGFR 73* 42* 46* 47* No results found for: MG , PHOS , DBIL UA & UPC Lab Results Component Value Date/Time SPECGRAVUA 1.020 05/03/2023 10:14 AM PROTEINUA 1+ 05/03/2023 10:14 AM BLOODUA 3+ 05/03/2023 10:14 AM LEUKOCYTEUA 3+ 05/03/2023 10:14 AM NITRITEUA neg 05/03/2023 10:14 AM GLUCOSEUA neg 05/03/2023 10:14 AM KETONEUA neg 05/03/2023 10:14 AM BILIRUBINUA neg 05/03/2023 10:14 AM UROBILINUA 0.2 05/03/2023 10:14 AM No results found for: PROTEINTO , CREATININEUR , TCTMQZCAA1FA No results for input(s): HCGURINE , HCGQUANT in the last 04073 hours. Latent Infections No results found for: HEPBSAG , HBVSAB , HEPBSAB , HEPBCAB , HEPCAB Lab Results Component Value Date/Time AFBSMR No acid-fast bacilli seen 05/16/2023 10:49 AM Immunology Labs Inflammatory Markers No results for input(s): ESR , SEDRATE , CRP in the last 91825 hours. RA-related Auto-Ab's No results found for: RF , RA , RAQNT , CCPIGG , CCPIGGIGA BRIDGER-related No results found for: ANATITER , ANAPATTERN , ANTINUCLE , ANAIGG , DSDNAABIU , ANTIDNADSABQ , DSDNAIGGAB , SMITHANTI , ANTICHRO , CHROMATINAB , SSAANTIBO , SSBANTIBO , SMRNPANTI , SMITHRNPAB , SCL70 , ANTICENTROB , DD0TQNFL , TVMXR812GK , BHENNHK1JP , HISTONEIGG No results for input(s): C3 , C4 in the last 81979 hours. APLS-related Auto-Ab's No results found for: A9HSBUBOAB , W5JAHPJICC , V1PETZKJRE , AXQB2VZY , AWHT6XRO , CRDLPNIGM , CRDLPNIGG , CRDLPNIGA , DILUTEPT , DPTCFMRATIO , TT , PTTLA , DRVVTBASE , LABINTE Myopathy No results found for: CK , ALDOLASE , SAE1AB , NXP2AB , MDA5AB , NOE6TYF , MYOINTERP , MI2AB , O785175 , PL12AB , PL7AB , OJAB , EJAB , SRPAB , BI1ERLHN , KUAB , SMITHRNPAB , WHCEV919UK , YZS30UT , ITF06NP , GNRGLPSN4NWL , ACHBLOCKAB , ACHBINDAB Vasculitis and ANCAs No results found for: NEUTCYTOAB , ANTIPROT3 , ANTIMPO , L7FAIQX Genetics No results found for: HLAB27 Gammopathy/Paraproteinemia No results found for: KAPPAFREE , LAMBDAFREE , KLFREERATIO , IGM , IGG , IGA No results found for: SPEINTERP , SERUMPEALB , SERUMPEA1 , SERUMPEA2 , SERUMPEBE , SERUMPEGA , PROT , LABIMMURE , CRYOGLOBQUAL Other Labs Endocrine & Metabolic No results for input(s): URICACID , HGBA1C , TSH , T4FREE in the last 50450 hours. No results found for: QFJF52VX Heme Lab Results Component Value Date/Time DDIMER 2.74 (H) 01/06/2014 06:54 PM Recent Labs Component Name 05/16/23 0831 10/05/22 1654 10/05/22 0924 PT 14.0 14.0 13.6 INR 1.1 1.1 1.1 Renal No results found for: CALCIUMION , PHBLD , IONCAART , MAGNESIUM , PHOS , SODIUMRAN , POTASSIUMUR , CHLORIDER Cardiac & Lipids No results for input(s): TROPONINI , CKMB , BNP in the last 12240 hours. No results for input(s): CHOL , TRIG , HDL , LDLCALC , LDLDIRECT in the last 88032 hours. Respiratory No results found for: SARSCOV2 , RINFLUANAA , RINFLUBNAA , INFLUARAPID , INFLUBRAPID , INFLUCNTRL , STREPARAPID , STREPAQC Hepatobiliary & GI No results found for: GGT , LIPASE , E8LMNUGCAJUJ , CMVPCR , CMVSOURCE , GDHANTIGEN , CDIFFTOXINAB , CDIFFINTRP , GLIADINIGG , GLIADINIGA , ENDOMYSIA , TTRANIGA , TTRANIGG Drug Screen No results found for: THCUR , PCPUR , COCAINEUR , METHAMPHETUR , OPIATESUR , AMPHETUR , BENZODIAZUR , TCAUR , METHADONEUR , BARBITURATUR , OXYCODONEUR , PROPOXYUR Synovial Fluid No results found for: COLORFL , CLARITYFLUID , BFVOLUME , VISCOSITY , WBCFLUID , RBCFL , CRYSTALEXAM , DIFF , BFBAND , BFSEGS , BFLYMPH , BFMONO , BFEOS , BFMACRO , PATHDIFFRVW Neuro/CSF No results found for: GLUCSF , PROTEINCSF , ZPL9UPLOVH , XHX3TFHDEX , DEAX8XYS , COCCIDIGG , NWL1AMA , CRYPTOAGCSF , ENTEROVIRPCR , OLIGOBAND , OLIGOBANDNUM , IGG , PNI2JPW , ALBUMINMS , TXNONGT9NDM , ALBUMININDEX , IGGINDEX , IGGALBRATIO , SYNTHESRTE , OLIGOCINTRP , TOXOPLASIGG , CYSTICERO Body Fluid Lab Results Component Value Date/Time GROSSDESCRIP 10/05/2022 12:00 AM Received in saline labeled Schlund, stone analysis are multiple brown-reynaga, multifaceted calculi, 3 cm in greatest aggregate dimension. The specimen is submitted for gross examination only. JI/ns STIs (HIV, GC, Trich, Syphilis) No results found for: HIV12 , FES3UTNATA , OPJ8PDK95YYE , CHLAMDIA , CHLTRNAA , GC , NGONORRNAA , TRICVAGAP , TRICHVAGBY , TPALLIDUM Cultures & Other Micro No results found for: URINECULT , BLOODCULT , BDERMAGUR , BDERMINTERP For assessment and recommendations, please see above. This note was generated using the Songfor speech recognition system. Grammatical errors, random wordinsertions, substitutions, deletions, pronoun errors, and incomplete sentences are an occasional consequence of this technology due to software limitations. Prior to signing the note, I reviewed it for misspellings or errors related to dictation to a reasonable extent, although it is possible that not all errors were caught or corrected. If there are questions or concerns about the content of this note or information contained within the body of this dictation, they should be addressed directlywith the author for clarification. Thank you. TRICAL ENGINEERING TECHNICIAN documented in this encounter Plan of Treatment Upcoming Encounters Date Type Department Care Team (Late st Contact Info) Description 05/06/2025 10:00 AM CDT Office Visit [facility] - Urology [address], [address] [place] [phone] Janny Torres MD [address] [place] [phone] documented as of this encounter Visit Diagnoses Diagnosis Ribonucleoprotein antibody positive- Primary documented in this encounter Care Teams Die Stamping Press Operator Relationship Specialty Start Date [place] [address] [place] [phone] PCP - General Internal Medicine 07/04/24 Janny Torres MD [address] [place] [phone] Physician Urology 05/07/24 documented as of this encounter
--- OUTSIDE RECORDS SUMMARY | 2024-09-08 14:29 | XMS_ITS | Encounter Summary ---
Author Organization [facility] Address [address] [place] [address] Care Team Providers Care Knitted Garment Finisher Name Role Phone Martha Arriaga MD Primary Care Provid er Encounter Details Date Type Department Care Team (Late st Contact Info) Description 07/03/1999 Outpatient Historical [facility] Internal Medicine Medical [facility] [address] [place] [phone] Cheikh Tsang MD [address] [place], [place] [id number] Social History Tobacco Use Types Packs/Day Years Used Date Smoking Tobacco: Never Assessed Comments Unknown Sex and Gender Information Value Date Recorded Sex Assigned at Not on file Legal Sex Female 3:23 AM RESIDENTIAL YOUTH COUNSELOR Gender Identity Not on file Sexual Orientation Not on file documented as of this encounter Plan of Treatment Not on file documented as of this encounter Visit Diagnoses Not on filedocumented in this encounter Care Teams Knitted Garment Finisher Relationship Specialty Start Date End Date Martha Arriaga MD PCP - General Internal Medicine 05/10/20 documented as of this encounter
--- OUTSIDE RECORDS SUMMARY | 2024-09-08 14:29 | XMS_ITS | Encounter Summary ---
Author Organization [facility] Address [address] [place] [address] Care Team Providers Care Advanced Manufacturing Vice President Name Role Phone Martha Arriaga MD Primary Care Provid er Encounter Details Date Type Department Care Team (Latest Contact Info) Description 06/09/2004 Outpatient Historical [facility] [address] [place] [address] Luis Carlos Saldaña OPEN WOUND KNEE/LEG-COMPL (Primary Dx) Social History Tobacco Use Types Packs/Day Years Used Date Smoking Tobacco: Never Assessed Comments Unknown Sex and Gender Information Value Date Recorded Sex Assigned at Not on file Legal Sex Female 3:23 AM DIRECTOR OF OUTPATIENT SERVICES Gender Identity Not on file Sexual Orientation Not on file documented as of this encounter Plan of Treatment Not on file documented as of this encounter Visit Diagnoses Diagnosis Open wound of knee, leg (except thigh), and ankle, complicated- Primary documented in this encounter Care Teams Advanced Manufacturing Vice President Relationship Specialty Start Date End Date Martha Arriaga MD PCP - General Internal Medicine 05/10/20 documented as of this encounter
--- OUTSIDE RECORDS SUMMARY | 2024-09-08 14:29 | XMS_ITS | Encounter Summary ---
Author Organization [employer] Address [address] [place] [address] Care Team Providers Care Sole Trimmer Name Role Phone Martha Arriaga MD Primary Care Provid er Encounter Details Date Type Department Care Team (Latest Contact Info) Description 05/04/1999 Outpatient Historical [facility] Baldev Tolbert MD [address] [facility] [address] [place] [phone] Screening for malignant neoplasm of the cervix (Primary Dx) Social History Tobacco Use Types Packs/Day Years Used Date Smoking Tobacco: Never Assessed Comments Unknown Sex and Gender Information Value Date Recorded Sex Assigned at Not on file Legal Sex Female 3:23 AM 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
--- OUTSIDE RECORDS SUMMARY | 2024-09-08 14:29 | XMS_ITS | Encounter Summary ---
Author Organization [employer] Address [address] [place] [address] Care Team Providers Care Student Financial Services Counselor Name Role Phone Martha Arriaga MD Primary Care Provid er Encounter Details Date Type Department Care Team (Late st Contact Info) Description 05/08/2004 Outpatient Historical [facility] Bernard Mcmillan MD [address] [place] [place] [phone] [place], Authorized P NO ADDRESS ON FILE SPRAIN OF NECK (Primary Dx) Social History Tobacco Use Types Packs/Day Years Used Date Smoking Tobacco: Never Assessed Comments Unknown Sex and Gender Information Value Date Recorded Sex Assigned at Not on file Legal Sex Female 3:23 AM DATA ANALYST ETL DEVELOPER Gender Identity Not on file Sexual Orientation Not on file documented as of this encounter Plan of Treatment Not on file documented as of this encounter Visit Diagnoses Diagnosis Sprain of neck- Primary documented in this encounter Care Teams Student Financial Services Counselor Relationship Specialty Start Date End Date Martha Arriaga MD PCP - General Internal Medicine 05/10/20 documented as of this encounter
--- OUTSIDE RECORDS SUMMARY | 2024-09-08 14:29 | XMS_ITS | Encounter Summary ---
Author Organization [facility] Address [address] [place] [address] Care Team Providers Care Saddle Tree Stitcher Name Role Phone Martha Arriaga MD Primary Care Provid er Encounter Details Date Type Department Care Team (Late st Contact Info) Description 06/16/2004 Outpatient Historical [facility] [address] [facility] [address] [phone] [place] [address] [place] [address] Social History Tobacco Use Types Packs/Day Years Used Date Smoking Tobacco: Never Assessed Comments Unknown Sex and Gender Information Value Date Recorded Sex Assigned at Not on file Legal Sex Female 3:23 AM INSTRUMENT TECHNICIAN HELPER Gender Identity Not on file Sexual Orientation Not on file documented as of this encounter Plan of Treatment Not on file documented as of this encounter Visit Diagnoses Not on filedocumented in this encounter Care Teams Saddle Tree Stitcher Relationship Specialty Start Date End Date Martha Arriaga MD PCP - General Internal Medicine 05/10/20 documented as of this encounter
--- OUTSIDE RECORDS SUMMARY | 2024-09-08 14:29 | XMS_ITS | Encounter Summary ---
Author Organization [email or web address] Address [address] [place] [address] Care Team Providers Care Sales/Marketing Name Role Phone Martha Arriaga MD Primary Care Provid er Encounter Details Date Type Department Care Team (Latest Contact Info) Description 11/02/2002 Outpatient Historical [facility] CAPRICE Saldaña, Luis Carlos BLOOD DISEASES NEC (Primary Dx) Social History Tobacco Use Types Packs/Day Years Used Date Smoking Tobacco: Never Assessed Comments Unknown Sex and Gender Information Value Date Recorded Sex Assigned at Not on file Legal Sex Female 3:23 AM PUBLIC INFORMATION OFFICER Gender Identity Not on file Sexual Orientation Not on file documented as of this encounter Plan of Treatment Not on file documented as of this encounter Visit Diagnoses Diagnosis Other blood disease- Primary Other specified diseases of blood and blood-forming organs documented in this encounter Care Teams Sales/Marketing Relationship Specialty Start Date End Date Martha Arriaga MD PCP - General Internal Medicine 05/10/20 documented as of this encounter
--- OUTSIDE RECORDS SUMMARY | 2024-09-08 14:29 | XMS_ITS | Encounter Summary ---
Author Organization [employer] Address [address] [place] [address] Care Team Providers Care Burner Tender Name Role Phone Martha Arriaga MD Primary Care Provid er Encounter Details Date Type Department Care Team (Late st Contact Info) Description 06/16/2004 Outpatient Historical [facility] [address] 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
--- OUTSIDE RECORDS SUMMARY | 2024-09-08 14:29 | XMS_ITS | Encounter Summary ---
Author Organization [facility] Address [address] [place] [address] Care Team Providers Care Animated Cartoons Painter Name Role Phone Martha Arriaga MD Primary Care Provid er Encounter Details Date Type Department Care Team ([facility] st Contact Info) Description 06/07/2004 Outpatient Historical [facility] Internal Medicine - [place] [place] [phone] [place] Saldaña [place] [address] [place] [id number] Social History Tobacco Use Types Packs/Day Years Used Date Smoking Tobacco: Never Assessed Comments Unknown Sex and Gender Information Value Date Recorded Sex Assigned at Not on file Legal Sex Female 3:23 AM ACQUISITIONS EDITOR Gender Identity Not on file Sexual Orientation Not on file documented as of this encounter Last Filed Vital Signs Vital Sign Reading Time Taken Comments Blood Pressure 120/72 06/07/2004 9:15 AM CDT Pulse 78 06/07/2004 9:15 AM CDT Temperature - - Respiratory Rate - - Oxygen Saturation - - Inhaled Oxygen Concentration - - Weight 125.2 kg (276 lb) 06/07/2004 9:15 AM CDT Height - - Body Mass Index - - documented in this encounter Plan of Treatment Not on file documented as of this encounter Visit Diagnoses Not on filedocumented in this encounter Care Teams Animated Cartoons Painter Relationship Specialty Start Date End Date Martha Arriaga MD PCP - General Internal Medicine 05/10/20 documented as of this encounter
--- OUTSIDE RECORDS SUMMARY | 2024-09-08 14:29 | XMS_ITS | Encounter Summary ---
Author Organization [facility] Address 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
--- OUTSIDE RECORDS SUMMARY | 2024-09-08 14:29 | XMS_ITS | Encounter Summary ---
Author Organization [facility] Address [address] [place] [address] Care Team Providers Care Dairy Farmworker Name Role Phone Martha Arriaga MD Primary Care Provid er Encounter Details Date Type Department Care Team (Latest Contact Info) Description 06/16/2004 Inpatient Historical [facility] PATIENT IN A BED Khris Simeon MD [address] [place] [address] OTHER POSTOP INFECTION (Primary Dx) Social History Tobacco Use Types Packs/Day Years Used Date Smoking Tobacco: Never Assessed Comments Unknown Sex and Gender Information Value Date Recorded Sex Assigned at Not on file Legal Sex Female 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
--- OUTSIDE RECORDS SUMMARY | 2024-09-08 14:29 | XMS_ITS | Encounter Summary ---
Author Organization [facility] Address [address] [place] [address] Care Team Providers Care Hose Operator Name Role Phone Martha Arriaga MD Primary Care Provid er Encounter Details Date Type Department Care Team (Late st Contact Info) Description 06/09/2004 Outpatient Historical 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
--- OUTSIDE RECORDS SUMMARY | 2024-09-08 14:29 | XMS_ITS | Encounter Summary ---
Author Organization [facility] Address [address] [place] [address] Care Team Providers Care Implementation Project Manager Name Role Phone Martha Arriaga MD Primary Care Provid er Encounter Details Date Type Department Care Team (Latest Contact Info) Description 06/27/2004 Outpatient Historical [facility] [address] [place] [address] Luis Carlos Saldaña OPEN WOUND KNEE/LEG-COMPL (Primary Dx) Social History Tobacco Use Types Packs/Day Years Used Date Smoking Tobacco: Never Assessed Comments Unknown Sex and Gender Information Value Date Recorded Sex Assigned at Not on file 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
--- OUTSIDE RECORDS SUMMARY | 2024-09-08 14:29 | XMS_ITS | Encounter Summary ---
Author Organization [facility] Address 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 Gender Identity Not on file Sexual Orientation Not on file documented as of this encounter Last Filed Vital Signs Vital Sign Reading Time Taken Comments Blood Pressure 100/60 05/15/2004 1:15 PM CDT Pulse 82 05/15/2004 1:15 PM CDT Temperature - - Respiratory Rate - - Oxygen Saturation - - Inhaled Oxygen Concentration - - Weight 127.5 kg (281 lb) 05/15/2004 1:15 PM CDT Height - - Body Mass Index - - documented in this encounter Plan of Treatment Not on file documented as of this encounter Visit Diagnoses Not on filedocumented in this encounter Care Teams Atg Java Developer Relationship Specialty Start Date End Date Martha Arriaga MD PCP - General Internal Medicine 05/10/20 documented as of this encounter
--- OUTSIDE RECORDS SUMMARY | 2024-09-08 14:29 | XMS_ITS | Encounter Summary ---
Author Organization [facility] Care Team Providers Care Vegetable Farmer Name Role Phone Noé Lew MD Primary Care Provider [phone] Encounter Details Date Type Department Care Team (Latest Contact Info) Description 09/08/2024 Travel Social History Tobacco Use Types Packs/Day Years Used Date Smoking Tobacco: Former Cigarettes Q uit: 09/02/2013 Smokeless Tobacco: Never Alcohol Use Standard Drinks/Week Comments Yes 0 (1 standard drink = 0.6 oz pur e alcohol) rarely Comments Unknown Sex and Gender Information Value Date Recorded Sex Assigned at Not on file Legal Sex Female 12:58 PM AGRICULTURAL PURCHASING AGENT Gender Identity Not on file Sexual Orientation Not on file documented as of this encounter Plan of Treatment Upcoming Encounters Date Type Department Care Team (Late st Contact Info) Description 09/10/2024 2:45 PM AGRICULTURAL PURCHASING AGENT Office Visit [facility] Oncology Services [address] [place] [phone] Eduardo Conn MD [address] [place] [address] Pricila Cruz Krysta, PAC [address] [place] [address] Discharge Disposition: Discharged to home or Selfcare documented as of this encounter Visit Diagnoses Not on filedocumented in this encounter Care Teams Vegetable Farmer Relationship Specialty Start Date End Date Noé Lew MD [address] [place] [address] PCP - General Internal Medicine 07/01/24 documented as of this encounter
--- OUTSIDE RECORDS SUMMARY | 2024-09-08 14:29 | XMS_ITS | Encounter Summary ---
Author Organization [facility] Address 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
--- OUTSIDE RECORDS SUMMARY | 2024-09-08 14:29 | XMS_ITS | Encounter Summary ---
Author Organization [facility] Address [address] [place] [address] Care Team Providers Care Weight Inspector Name Role Phone Martha Arriaga MD Primary Care Provid er Encounter Details Date Type Department Care Team (Late st Contact Info) Description 06/17/2004 Outpatient Historical [facility] Trauma and General Surgery [address] 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
--- OUTSIDE RECORDS SUMMARY | 2024-09-08 14:29 | XMS_ITS | Clinical Summary ---
Author Organization [facility] Address [address] [place] [address] Phone Care Team Providers Care Sail Cutter Name Role Phone Noé Lew MD Primary Care Provider [phone] Allergies Active Allergy Reactions Criticality Noted Date Comments Codeine Anaphylaxis High 02/18/2003 Erythromycin Rash Medium 02/18/2003 Iodine Unknown 07/03/2022 Latex Rash Medium 06/17/2009 Contact; bandaids and condoms Lavender Oil Shortness of Breath High 07/03/2022 Warfarin Rash High 09/23/2008 Medications ergocalciferol (VITAMIN D) 43941 UNIT Capsule TAKE 1 CAPSULE WEEKLY 06/25/2024 Active Active Problems Problem Noted Date Diagnosed Date Factor V Leiden 09/02/2024 Encounters Date Type Department Care Team Description 09/08/2024 Travel 09/02/2024 3:00 PM REFERENCE DATA EXPERT [facility] [address] [place] [address] Pricila Cruz, PAC Factor V Leiden (HCC) Discharge Disposition: Discharged to home or Selfcare 09/02/2024 2:15 PM REFERENCE DATA EXPERT Initial Consult [facility] Oncology Services [address] [place] [address] Noé Lew MD Norris, Arlene June, PAC Factor V Leiden (HCC) (Primary Dx) Discharge Disposition: Discharged to home or Selfcare 09/02/2024 Travel from Last 3 Months Family History Medical History Relation Name Comments Cancer Brother Diabetes Brother Hypertension Brother Leukemia/Lymphoma Brother Diabetes Maternal Uncle Heart Disease Maternal Uncle Hypertension Maternal Uncle Alzheimer's Disease Mother Breast Cancer Mother Cancer Mother Relation Name Status Comments Brother Maternal Uncle Mother Social History Tobacco Use Types Packs/Day Years Used Date Smoking Tobacco: Former Cigarettes Q uit: 09/02/2013 Smokeless Tobacco: Never Tobacco Cessation:Counseling Given: Not Answered Alcohol Use Standard Drinks/Week Comments Yes 0 (1 standard drink = 0.6 oz pur e alcohol) rarely Comments Unknown Sex and Gender Information Value Date Recorded Sex Assigned at Not on file Legal Sex Female 12:58 PM REFERENCE DATA EXPERT Gender Identity Not on file Sexual Orientation Not on file Last Filed Vital Signs Vital Sign Reading Time Taken Comments Blood Pressure 156/65 09/02/2024 2:48 PM REFERENCE DATA EXPERT Pulse 77 09/02/2024 2:48 PM REFERENCE DATA EXPERT Temperature 36.7 ??C (98.1 ??F) 09/02/2024 2:48 PM CS T Respiratory Rate 18 09/02/2024 2:48 PM REFERENCE DATA EXPERT Oxygen Saturation 97% 09/02/2024 2:48 PM REFERENCE DATA EXPERT Inhaled Oxygen Concentration - - Weight 148.1 kg (326 lb 9.6 oz) 09/02/2024 2:48 PM REFERENCE DATA EXPERT Height 165.1 cm (5' 5 ) 09/02/2024 2:48 PM REFERENCE DATA EXPERT Body Mass Index 54.35 09/02/2024 2:48 PM REFERENCE DATA EXPERT Plan of Treatment Upcoming Encounters Date Type Department Care Team (Late st Contact Info) Description 09/10/2024 2:45 PM REFERENCE DATA EXPERT Office Visit [facility] Oncology Services [address] [place] [address] Eduardo Conn MD [address] [place] [address] Pricila Cruz, PAC [address] [place] [address] Discharge Disposition: Discharged to home or Selfcare Health Maintenance Due Date Last Done Comments DEXA Bone Density 1954 Hepatitis C Virus (HCV) Screening 1954 TdaP Immunization 1954 Colonoscopy 1999 Colorectal Cancer Screening 1999 Cologuard 2004 Immunochemical Fecal Occult Blood 2004 Pneumococcal Immunization (5 0+ years) (1 of 1 - PCV) 2004 Zoster Immunization (1 of 2) 2004 Respiratory Syncytial Virus (RSV) Immunization (Adult) (1 - Risk 60-74 years 1-dose series) 2014 Mammogram 05/10/2022 05/10/2020, 05/10/2020, 05/17/2017 Influenza Immunization (#1) 2024 SARS-COV-2 Immunization ( season) 2024 Hepatitis B Immunization Aged Out No longer eligible based on patient's age to complete this topic Meningococcal Immunization (ACWY) Aged Out No longer eligible b ased on patient's age to complete this topic Rotavirus Immunization Aged Out No lo nger eligible based on patient's age to complete this topic Procedures Procedure Name Priority Date/Time Associated Diagnosis Comments LUPUS ANTICOAG PROFILE Routine 09/02/2024 3:24 PM REFERENCE DATA EXPERT Factor V Leiden (HCC) BETA-2 GPI AB IGA, IGG, IGM Routine 09/02/2024 3:24 PM REFERENCE DATA EXPERT Factor V Leiden (HCC) ANTI CARDIOLIPIN IGG, IGM & IGA Routine 09/02/2024 3:24 PM REFERENCE DATA EXPERT Factor V Leiden (HCC) PHOSPHOLIPID PANEL (ACL,B2GP,LUPAP) Routine 09/02/2024 3:24 PM REFERENCE DATA EXPERT Factor V Leiden (HCC) ANTI THROMBIN III ACTIVITY Routine 09/02/2024 3:24 PM REFERENCE DATA EXPERT Factor V Leiden (HCC) PROTEIN S ACTIVITY Routine 09/02/2024 3: 24 PM REFERENCE DATA EXPERT Factor V Leiden (HCC) PROTEIN C ACTIVITY Routine 09/02/2024 3: 24 PM REFERENCE DATA EXPERT Factor V Leiden (HCC) from Last 3 Months Results * (ABNORMAL) LUPUS ANTICOAG PROFILE (09/02/2024 3:24 PM REFERENCE DATA EXPERT) Pathologist [facility] INR 1.0 0.9 - 1.2 09/04/2024 10:41 AM REFERENCE DATA EXPERT [facility] THROMBIN TIME 19.1(H) 15.1 - 18.5 sec 09/04/2024 10:41 AM [facility] PROTIME-PATIEN T 13.1 11.6 - 14.8 sec 09/04/2024 10:41 AM [facility] APTT-LA 33.1 30.6 - 38.8 sec 09/04/2024 10:41 AM [facility] DRVV SCREEN RATIO 1.0 <=1.2 ratio 09/04/2024 10:41 AM [facility] Blood Venipuncture / Unknown 09/02/2024 3:24 PM REFERENCE DATA EXPERT 09/02/2024 3:24 PM REFERENCE DATA EXPERT Narrative [facility] - 09/04/2024 10:41 AM REFERENCE DATA EXPERT No evidence of lupus-like anticoagulant based on results of Lupus sensitive Activated Partial Thromboplastin Time (APTT) and Dilute Alex's Viper Venom Time (DRVVT). Pricila Rojasris PAC HEMATOLOGY ORDERABLES Fin al Result Performing Organization Address City/State/[facility] Co de Phone Number [facility] [address] [place] [address], * BETA-2 GPI AB IGA, IGG, IGM (09/02/2024 3:24 PM REFERENCE DATA EXPERT) Pathologist [facility] BETA-2 GLYCOPROTEIN IGA <2.0 <20.0 APL-U/mL 09/02/2024 10:13 PM REFERENCE DATA EXPERT [facility] BETA-2 GLYCOPROTEIN IGG <1.4 <20.0 GPL-U/mL 09/02/2024 10:13 PM [facility] BETA-2 GLYCOPROTEIN IGM 1.8 <20.0 MPL-U/mL 09/02/2024 10:13 PM [facility] Blood Venipuncture / Unknown 09/02/2024 3:24 PM REFERENCE DATA EXPERT 09/02/2024 3:24 PM REFERENCE DATA EXPERT Narrative [facility] - 09/02/2024 10:13 PM REFERENCE DATA EXPERT Antibody testing was performed by multiplex flow immunoassay on the BioPlex platform. [facility] IMMUNOLOGY ORDERABLES Fin al Result Performing Organization Address City/[facility]/ZIP Co de Phone Number [facility] [address] [place] [address], [place] * ANTI CARDIOLIPIN IGG, IGM & IGA (09/02/2024 3:24 PM REFERENCE DATA EXPERT) CARDIOLIPIN IGA <2.0 <20.0 APL-U/mL 09/02/2024 10:13 PM REFERENCE DATA EXPERT [facility] CARDIOLIPIN IGG <1.6 <20.0 GPL-U/mL 09/02/2024 10:13 PM REFERENCE DATA EXPERT [facility] CARDIOLIPIN IGM 2.3 <20.0 MPL-U/mL 09/02/2024 10:13 PM REFERENCE DATA EXPERT [facility] Blood Venipuncture / Unknown 09/02/2024 3:24 PM REFERENCE DATA EXPERT 09/02/2024 3:24 PM REFERENCE DATA EXPERT Narrative [facility] - 09/02/2024 10:13 PM REFERENCE DATA EXPERT Antibody testing was performed by multiplex flow immunoassay on the BioPlex platform. [facility] IMMUNOLOGY ORDERABLES Fin al Result Performing Organization Address City/[facility]/ZIP Co de Phone Number [facility] [address] [place] [address], [place] * PROTEIN S ACTIVITY (09/02/2024 3:24 PM REFERENCE DATA EXPERT) PROTEIN S ACTIVITY 74.0 65 - 129 % 09/04/2024 10:11 AM REFERENCE DATA EXPERT [facility] Blood Venipuncture / Unknown 09/02/2024 3:24 PM REFERENCE DATA EXPERT 09/02/2024 3:24 PM REFERENCE DATA EXPERT [facility] PAC HEMATOLOGY ORDERABLES Fin al Result Performing Organization Address City/[facility]/ZIP Co de Phone Number [facility] [address] [place] [address], [place] * PROTEIN C ACTIVITY (09/02/2024 3:24 PM REFERENCE DATA EXPERT) PROTEIN C ACTIVITY 126.0 79 - 175 % 09/04/2024 10:10 AM REFERENCE DATA EXPERT [facility] Blood Venipuncture / Unknown 09/02/2024 3:24 PM REFERENCE DATA EXPERT 09/02/2024 3:24 PM REFERENCE DATA EXPERT [facility] PAC HEMATOLOGY ORDERABLES Fin al Result Performing Organization Address City/[facility] Co de Phone Number [facility] [address] [place] [address], [place] * ANTI THROMBIN III ACTIVITY (09/02/2024 3:24 PM REFERENCE DATA EXPERT) ANTITHROMBIN III 112 82 - 139 % 09/02/19 11:54 PM REFERENCE DATA EXPERT [facility] Blood Venipuncture / Unknown 09/02/2024 3:24 PM REFERENCE DATA EXPERT 09/02/2024 3:24 PM REFERENCE DATA EXPERT [facility] PAC HEMATOLOGY ORDERABLES Fin al Result Performing Organization Address City/[facility]/ZIP Co de Phone Number [facility] [address] [place] [address], [place] from Last 3 Months Insurance MEDICARE C [employer] [place] Care Teams Sail Cutter Relationship Specialty Start Date End Date Noé Lew MD [address] [place] [address] PCP - General Internal Medicine 07/01/24
--- OUTSIDE RECORDS SUMMARY | 2024-09-08 14:29 | XMS_ITS | Encounter Summary ---
Author Organization [facility] Address [address] [place] [address] Care Team Providers Care Hydraulic Billet Maker Name Role Phone Martha Arriaga MD Primary Care Provid er Encounter Details Date Type Department Care Team (Latest Contact Info) Description 07/11/2004 Outpatient Historical 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
--- OUTSIDE RECORDS SUMMARY | 2024-09-08 14:29 | XMS_ITS | Data Portability ---
Author Organization [facility] [email or web address], Main Office Address [address] [place] [address] Assessment No assessment recorded. Plan of Treatment Reminders Order Date Submit Date Provider Last Modified By Organization Details Last Modified Time Details Appointments None recorded. Lab noninvasive colorectal cancer DNA + occult blood screening, QL, stool 2022 023 [email or web address] cookdinner (Cologuard Orders Only), [address], [address], [place], [address], 3 09:59:27 Referral pain management referral 2022 023 [email or web address] 3 Anais Louis [facility], [address], [place], [address], 3 09:43:42 Procedures None recorded. Surgeries None recorded. Imaging MAMMO, screening, digital, bilateral 2022 023 [email or web address] [facility], [address], [address], [place], [address], 3 09:20:23 DEXA 2022 023 [email or web address] [facility], [address], [address], [place], [address], 3 09:21:53 Medication Orders tramadol 50 mg tablet 2022 023 [facility], [facility], [place], [address], 3 15:49:09 tizanidine 4 mg tablet 2022 023 [facility] [place], [address], 3 15:49:06 Flonase Allergy Relief 50 mcg/actuati on nasal spray,suspe nsion 2022 023 1 [facility], [place], [address], 3 11:21:47 loratadine 10 mg tablet 2022 023 [facility], [facility] [place], [address], 15:49:04 Patient TargetsNo targets recorded. Patient Instructions Encounter Date Encounter Id Patient Instructions Last Modified By Organization Details Last Modified Time 12/31/2022 [id number] dementia rating scale-2* Not available 12/31/2022 15:49:00 care plan* [email or web address] Not available 12/11 15:49:01 multi-dimensiona health assessment questionnaire* [email or web address] Not available 12/31/2022 15:49:00 advance directiv es: care instructions [email or web address] Not available 12/31/2022 15:49:00 [place] Advance Directives [email or web address] Not available 12/31/2022 15:49:00 advance care planning: care instructions [email or web address] Not available 12/31/2022 15:49:01 Personalized a lt Plan and Screening Recommendations Advance Directives - Do you have one? You have indicated that you are capable of preparing your advance care directive Advance Directives - Do we have your advance directive on file in your health record? Primary Prevention/Interven tion (prevents or decreases the chance of common diseases from occurring) Smoking Risk: Non Smoker Alcohol Misuse Screening: Negative Weight: Appropriate Overwei ght continue your current weight loss efforts try to lose 5% of your body weight try to lose 10% of your body weight try to lose 15% of your body weight Physical activity: Nutrition: Fall Risk (screened today): Low Vaccines Pneumococcal: Ordered Recommended today Influenza: Chronic Disease Risks Stroke: Low Risk I have no recommendations Act ankush diagnosis, Continue current treatment plan Heart Attack: Low risk I have no recommendations Act ankush diagnosis, Continue current treatment plan Clogging of the Arteries: Low risk I have no recommendations Act ankush diagnosis, Continue current treatment plan Diabetes: Low Risk Secondary Prevention/Interven tion (detects treatable diseases before they may cause symptoms, disability, or ) Prostate Cancer Screening: Colon Cancer Screening: Colonoscopy Fecal Occult Blood Cologuard (DNA stool test) Date Screening Last Performed: Eye Disease Screening: Ordered Recommended today Dementia Risk: Low Depression Screening: Negative Positive [email or web address] Not available 12/31/2022 15:53:25 Reason for Referral Pain Management Referral for Degeneration of lumbar intervertebral disc Referring Physician: Robbi Lazaro, Family Medicine, Encounter Date: 05/21/2023 Results Created Date Observation Date Name Description Value Unit Range Abnormal Flag Note LastModifiedBy Organization Detail LastModifiedTime 12/31/19 24 12/31/2023 COLOG UARD cologuard result Cancel led - Order d not applic able Not Available [facility] (Cologuard Orders Only) [address], [place], [address], 12/31/2023 16:17:27 06/01/20 22 06/01/2022 urina lysis , dipst ick Leukocytes (reference range: negative kris/??l) Modera te Not Available [facility] [address], [address], [address], 06/01/2022 16:51:15 06/01/20 22 06/01/2022 urina lysis , dipst ick Nitrite (reference rage: negative mg/dl) positi ve Not Available [facility] [address], [address], [address], 06/01/2022 16:51:15 06/01/20 22 06/01/2022 urina lysis , dipst ick Urobilinogen (reference range: 0.2-1 mg/dl) 1 Not Available [address], [address], [address], 06/01/2022 16:51:15 06/01/20 22 06/01/2022 urina lysis , dipst ick Protein (reference range: negative mg/dl) 100 Not Available [address], [address], 06/01/2022 16:51:15 06/01/20 22 06/01/2022 urina lysis , dipst ick pH (reference range: 5-7) 6.0 Not Available Z_hr [address], [address], 06/01/2022 16:51:15 06/01/20 22 06/01/2022 urina lysis , dipst ick Blood (reference range: negative Tim/??l) Modera te Not Available [address], [address], 06/01/2022 16:51:15 06/01/20 22 06/01/2022 urina lysis , dipst ick Specific [place] (reference range: 1.005-1.030) 1.020 Not Available Z_[address], [address], 06/01/2022 16:51:15 06/01/20 22 06/01/2022 urina lysis , dipst ick Ketone (reference range: negative mg/dl) Negati ve Not Available [address], [address], 06/01/2022 16:51:15 06/01/20 22 06/01/2022 urina lysis , dipst ick Bilirubin (reference range: negative mg/dl) Negati ve Not Available [address], [address], 06/01/2022 16:51:15 06/01/20 22 06/01/2022 urina lysis , dipst ick Glucose (reference range: negative mg/dl) Negati ve Not Available [address], [address], 06/01/2022 16:51:15 06/01/20 22 06/01/2022 urina lysis , dipst ick Appearance Clear Not Available [address], [address], 06/01/2022 16:51:15 06/01/20 22 06/01/2022 urina lysis , dipst ick Color Yellow Not Available [address], [address], 06/01/2022 16:51:15 06/04/20 22 05/12/2022 CT, abdom en + pelvi s, w/o contr ast No observ ation record ed. [id number] Not Available 10/11/2022 01:28:22 Result Notes None recorded. Problems Name Problem SNOMED Code Status Onset Date Resolution Date Notes Provider Name and Address Organization Details Recorded Time Cobalamin deficiency 576776661 Active 2021 Not Available [facility] 3 01:25:45 Mixed anxiety and depressive disorder 134726295 Active 2021 Not Available [facility] 3 01:25:46 Polycystic ovary syndrome 559047216 Active 2021 Not Available [facility] 3 01:25:46 Thyroid nodule 705900470 Active 2021 Not Available [facility] 3 01:25:46 Gastroesop hageal reflux disease without esophagiti s 670458672 Active 2021 Not Available [facility] 3 01:25:46 Vitamin D deficiency 23784683 Active 2021 Not Available [facility] 3 01:25:46 Urine EDDP level Active 2021 Not Available [facility] 3 01:25:46 Essential hypertensi on 60539891 Active 2021 Not Available [facility] 3 01:25:46 Polydactyl y of biphalange al thumb 172087447 Active 2021 Not Available [facility] 3 01:25:46 Kidney stone 28331449 Active 2021 Not Available [facility] 3 01:25:47 Degenerati on of lumbar interverte bral disc 03508114 Active 2022 TRE Luz [address], [address], [place], [address] , [facility] [employer] [facility] 3 15:09:02 Bilateral osteoarthr itis of knees 9281226277579 07 Active 2022 TRE Luz [address], [address], [place], [address] , [email or web address] [facility] 3 15:09:55 Seasonal allergy 053800896 Active 2022 TRE Luz [address], [address], [place], [address] , [facility] 3 15:18:18 Decreased renal function 14299640 Active 2022 ADRIAN BadilloP-C [address], [address], [place], [address] , [email or web address] 3 10:07:40 Spasm 60928805 Active 2022 Robbi Lazaro [employer] [address], [address], [place], [address] , [employer] 3 10:09:00 Problem Notes None recorded. Procedures Surgical History Date Name Laterality Status Provider Name and Address Organization Details Recorded Time 01/01/20 23 Medicare Wellness CPT Code, Initial completed TRE Luz [address], [address], [place], [address], [employer] 12/31/2022 14:21:06 Cholecystectomy completed Not Available [facility] 10/11/2022 01:24:03 repair of umbilical hernia completed Not Available [facility] 10/11/2022 01:24:03 Imaging Results Imaging Date Name Status LastModified by Organiz ation Details LastModified Time 05/12/2022 CT, abdomen + pelvis, w/o contrast completed [id number] Information not available 10/11/2022 01:28:22 Procedure Notes None recorded. Medical Equipment None Reported. Allergies Allergen ID Allergen Name Allergen Category Reaction Reaction Severity Criticality Documentation Date Start Date Code Code System Note Provider Name and Address Organization Details Recorded Time 89196 robenacox ib Not available Not available Not available Not available 10/11/2022 46743 03 RxNorm Not Available [facility] 3 01:28:09 19813 naproxen medicatio n Not available Not available Not available 10/11/2022 7258 RxNorm Not Available [facility] 3 01:28:09 80870 lavender extract food Not available Not available Not available 10/11/2022 36414 67 RxNorm Not Available [facility] 3 01:28:09 18444 latex environme nt,medica tion Not available Not available Not available 10/11/2022 51862 91 RxNorm Not Available [facility] 3 01:28:09 71303 Iodinated contrast media (substanc e) medicatio n Not available Not available Not available 10/11/2022 84836 2004 SNOMED Not Available [facility] 3 01:28:09 99490 Demerol medicatio n Not available Not available Not available 10/11/2022 70852 1 RxNorm Not Available [facility] 3 01:28:09 96211 codeine medicatio n Not available Not available Not available 10/11/2022 2670 RxNorm Not Available [facility] 3 01:28:09 Medications Name Sig Start Date Stop Date Status Note LastModified by Organization Details LastModified Time fluoxetine 40 mg capsule TAKE 1 CAPSULE DAILY active Not Available Not Available No t Available cyclobenzap rine 10 mg tablet TAKE 1 TABLET 3 TIMES A DAY active Not Available Not Available No t Available bupropion HCl SR 150 mg tablet,12 hr sustained-r elease TAKE 1 TABLET TWICE A DAY active Not Available Not Available No t Available IBU 800 mg tablet Take 1 tablet 3 times a day by oral route as needed. active Not Available Not Available No t Available tizanidine 4 mg tablet Take 1 tablet every 8 hours by oral route as needed for 90 days. active Not Available Not Available No t Available hydrocodone 5 mg-acetamin ophen 325 mg tablet Take 1 tablet every 6 hours by oral route as needed for 7 days. active Not Available Not Available No t Available ciprofloxac in 500 mg tablet TAKE 1 (ONE) TABLET BY MOUTH 2 TIMES DAILY FOR 3 DAYS 12/31 completed Not Available Not Available Not Available tramadol 50 mg tablet TAKE 1 TABLET EVERY 8 HOURSAS NEEDED 2023 active Not Available Not Available Not Avai lable tamsulosin 0.4 mg capsule TAKE 1 (ONE) CAPSULE BY MOUTH AT BEDTIME FOR 14 DAYS active Not Available Not Available No t Available doxycycline monohydrate 100 mg capsule TAKE 1 CAPSULE BY MOUTH EVERY 12 HOURS FOR 10 DAYS 04/06 completed Not Available Not Available Not Available flunisolide 25 mcg (0.025 %) nasal spray USE 2 SPRAYS IN EACH NOSTRIL TWICE DAILY 2023 active Not Available Not Available Not Avai lable pantoprazol e 40 mg tablet,pool yed release TAKE 1 TABLET DAILY active Not Available Not Available No t Available metformin 1,000 mg tablet TAKE 1 TABLET TWICE A DAY active Not Available Not Available No t Available lisinopril 10 mg tablet TAKE 1 TABLET DAILY active Not Available Not Available No t Available prednisone 50 mg tablet active Not Available Not Available Not Available furosemide 20 mg tablet TAKE 1 TABLET DAILY active Not Available Not Available No t Available albuterol sulfate HFA 90 mcg/actuati on aerosol inhaler USE 2 INHALATIO NS ORALLY EVERY 4 HOURS NEEDED FORWHEEZI NG active Not Available Not Available No t Available oxybutynin chloride 5 mg tablet active Not Available Not Available No t Available cefdinir 300 mg capsule TAKE 1 CAPSULE BY MOUTH EVERY 12 HOURS FOR 7 DAYS 06/01 completed Not Available Not Available Not Available topiramate 100 mg tablet Take 1 tablet twice a day by oral route for 90 days. active Not Available Not Available No t Available loratadine 10 mg tablet Take 1 tablet every day by oral route. 2022 active Not Available Not Available Not Avai lable azithromyci n 500 mg tablet TAKE 1 TABLET BY MOUTH DAILY FOR 5 DAYS 04/06 completed Not Available Not Available Not Available Tylenol 8 Hour 650 mg tablet,exte nded release Take 2 tablets every 8 hours by oral route as needed for 90 days. active Not Available Not Available No t Available omeprazole 20 mg tablet,pool yed release Take 1 tablet every day by oral route for 90 days. active Not Available Not Available No t Available Banophen 50 mg capsule TAKE 1 CAPSULE BY MOUTH 1 HOUR PRIOR TO PROCEDURE active Not Available Not Available No t Available Flonase Allergy Relief 50 mcg/actuati on nasal spray,suspe nsion [place] 1 spray every day by intranasa l route. 2022 active Not Available Not Available Not Avai lable ID NOW COVID-19 Test Kit TEST DIRECTED TODAY 04/06 completed Not Available Not Available Not Available Vitals Date Recorded Body height Oxygen saturation Oxygen saturation in Arterial blood by Pulse oximetry Heart rate Body temperature Systolic blood pressure Diastolic blood pressure Provider Name and Address Organization Details Last Updated DateTime 2 167.64 cm 98 % 98 % 91 /min 97.7 [degF] 148 mm[Hg] 96 mm[Hg] Not Available [facility] 3 01:24:53 Date Recorded Oxygen saturation Oxygen saturation in Arterial blood by Pulse oximetry Heart rate Body temperature Body weight Systolic blood pressure Diastolic blood pressure Provider Name and Address Organization Details Last Updated DateTime 2 98 % 98 % 76 /min 96.3 [degF] 163089. 71 g 140 mm[Hg] 70 mm[Hg] Not Available [facility] 3 01:24:53 Date Recorded Oxygen saturation Oxygen saturation in Arterial blood by Pulse oximetry Heart rate Body temperature Body weight Systolic blood pressure Diastolic blood pressure Provider Name and Address Organization Details Last Updated DateTime 2 98 % 98 % 115 /min 98.1 [degF] 417614. 53 g 146 mm[Hg] 82 mm[Hg] Not Available [facility] 3 01:24:53 Date Recorded Body height Body mass index (BMI) Body weight Body temperature Heart rate Oxygen saturation Oxygen saturation in Arterial blood by Pulse oximetry Systolic blood pressure Diastolic blood pressure Provider Name and Address Organization Details Last Updated DateTime 3 167.64 cm 49.7 kg/m2 428511. 45 g 97.6 [degF] 83 /min 97 % 97 % 136 mm[Hg] 84 mm[Hg] Le calhoun [facility] [place] [facility] 3 14:45:25 Date Recorded Body height Body mass index (BMI) Body weight Body temperature Heart rate Oxygen saturation Oxygen saturation in Arterial blood by Pulse oximetry Systolic blood pressure Diastolic blood pressure Provider Name and Address Organization Details Last Updated DateTime 3 167.64 cm 49.4 kg/m2 053521. 27 g 96.4 [degF] 100 /min 94 % 94 % 170 mm[Hg] 100 mm[Hg] Wilda Addison RN [email or web address] 3 09:46:27 Social History Question Answer Notes LastModified by Organizat ion Details LastModified Time Tobacco Smoking Status Never Smoker Not Available [facility] 10/11/2022 01:23:42 What Is Your Level Of Alcohol Consumption? None [id number] Information not available 10/11/2022 What Is Your Level Of Caffeine Consumption? None [id number] Information not available 10/11/2022 In The 14 Days Before Symptom Onset, Have You Had Close Contact With A Laboratory-confirm ed COVID-19 While That Case Was Ill? No [id number] Information not available 10/11/2022 In The 14 Days Before Symptom Onset, Have You Had Close Contact With A Person Who Is Under Investigation For COVID-19 While That Person Was Ill? No [id number] Information not available 10/11/2022 What Type Of Diet Are You Following? REGULAR [id number] Information not available 10/11/2022 Do You Use Any Illicit Or Recreational Drugs? No [id number] Information not available 10/11/2022 Has Tobacco Cessation Counseling Been Provided? No [id number] Information not available 10/11/2022 Do You Have Any Dietary Restrictions? No [id number] Information not available 10/11/2022 Do You Or Have You Ever Used Any Other Forms Of Tobacco Or Nicotine? No [id number] Information not available 10/11/2022 Sex: Unknown Functional Status Question Answer Note LastModified by Organizat ion Details LastModified Time What is your exercise level? None [id number] Information not available 10/11/2022 Mental Status None recorded. Family History Nothing Reported. Medical History Condition Response ARTHRITIS Y KIDNEY STONES Y BLOOD CLOTS Y ANEMIA/BLOOD DISORDER Y CATARACTS Y DEPRESSION (INCLUDING POST ) Y HYPERTENSION Y Gynecological History Statement/Question Response Sexually Active? N Menses Monthly N STIs/STDs N Current Control Method Menopause Breast Problems no Discharge no Obstetrics History GPAL:G 0 P 0 0 0 0 Past Encounters Encounter ID Performer Location Encounter Start Date Encounter Closed Date Diagnosis/Indication Diagnosis SNOMED-CT Code Diagnosis ICD10 Code Diagnosis Note [id number] [facility] [address] [place] [address] 04/06/2022 00:00:00 04/06/2022 13:30:35 [id number] [facility] [address] [facility] [address] [place] [address] 05/21/2022 00:00:00 05/21/2022 12:44:09 [id number] [facility] [address], [address] [place] [address] 06/01/2022 00:00:00 06/01/2022 17:42:27 [id number] TRE Luz [facility] [address] [facility] [address] [place] [address] 12/31/2022 14:34:56 12/31/2022 15:30:54 Adult health examination 068983382 Z00.00 Labs completed 04/06/22. Recommende d routine eye exams and dental cleanings. Shingles vaccine- recommende d; declinesPn eumonia vaccine- recommende d declines; declinesFl u vaccine- recommende d; declinesTe tanus vaccine- up to date per patient, approx. 5 years ago Colonoscop y- declines; cologuard a few years agoMammogr am- ordered todayDEXA- ordered today Screening for disorder 279769402 Z13.9 Screening for malignant neoplasm of colon 521083184 Z12.11 Screening mammography 24 342827 Z12.31 Screening for osteoporosis 634690616 Z13.820 Degenerati on of lumbar intervertebral disc 34957665 M51.36 She did not follow-up with Dr. Westbrook due to cost.She states she has been to other pain management s but all they wanted to do was injections and she states it did not improve symptoms.S he has tried cyclobenza isael and baclofen with no relief. She cannot take methocarba mol due to side effects. Will do trial of tizanidine . 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 Advised we can try tramadol but if this is not enough her only option will be to go back to pain management for long wall mining machine helper pain management . She expresses understand ing. Bilateral osteoarthritis of knees 9213243292 79993 M17.0 Recommende d she follow-up with orthopedic s, but she declines at this time. She is not interested in injections or any replacemen ts at this time. Seasonal allergy 4669145 04 J30.2 [id number] SHAYAN Badillo [facility] [address] [facility] [address] [place] [address] 05/21/2023 09:39:50 05/21/2023 11:28:37 Decreased renal function 65973287 R94.4 currently has drain to right kidney-con tinues to drain more than 5cc/day, yellow/ser ous fluidUrolo gy Dr. Janny Schmidt continues to followPlan s to have interventi onal radiology f/u in the near future-cur rently not scheduled Degenerati on of lumbar intervertebral disc 64528261 M51.36 Her back is her biggest issuepain currently rated at 8/10, treats with tylenol, ibuprofen, and tramadolRO M and strength are both decreasedR elies on both of her sons for help with ADL's Health Concerns Section Related Observation LastModified by Organization Detai ls LastModified Time None Recorded Concern Status LastModified by Organization Details LastModified Time None Recorded Advance Directives Directive None Recorded Payers Encounter Date Sequence Insurance Name Policy Number Policy Durbin Covered Member ID Durbin Member ID Guarantor Name 12/31/2022 1 [employer] - PREMIER PLAN - DUAL (MEDICARE - MEDICAID REPLACEMENT HMO) Ally Ayala [id number] Ally Ayala 05/21/2023 1 [employer] - [employer]MIER PLAN - DUAL (MEDICARE - MEDICAID REPLACEMENT HMO) Ally Ayala [id number] Ally Ayala Notes Date Note Type Note Provider Name and Address Organization Details Recorded Time 12/31/2022 text/html Pt. here for medicare wellness.She is followed by urology (Dr. Schmidt). She stopped the topiramate because her urologist wanted her to stop it because it can cause worsening kidney stone. TRE Luz [address], [place], [address], [employer] 12/31/2022 15:53:50 05/21/2023 text/html Pt is here for f/u and referral to pain management SHAYAN Badillo [address], [address], [place], [address], [employer] 05/21/2023 10:33:34 OBGyn Episode No OBEpisode recorded.
--- OUTSIDE RECORDS SUMMARY | 2024-09-08 14:29 | XMS_ITS | Encounter Summary ---
Author Organization [facility] Address 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
--- OUTSIDE RECORDS SUMMARY | 2024-09-08 14:29 | XMS_ITS | Encounter Summary ---
Author Organization [facility] Address [address] [place] [address] Care Team Providers Care Digital Account Manager Name Role Phone Martha Arriaga MD Primary Care Provid er Encounter Details Date Type Department Care Team (Late st Contact Info) Description 09/20/1998 Outpatient Historical [facility] Internal Medicine Medical [place] [facility] [address] [facility] [address] [place] [phone] Cheikh Tsang MD [address] 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
--- OUTSIDE RECORDS SUMMARY | 2024-09-08 14:29 | XMS_ITS | Encounter Summary ---
Author Organization [facility] Address [address] [place] [address] Care Team Providers Care Marine Safety Officer Name Role Phone Martha Arriaga MD Primary Care Provid er Encounter Details Date Type Department Care Team (Late st Contact Info) Description 03/20/2001 Outpatient Historical [facility] Internal Medicine Medical [place] [facility] [address] [facility] [address] [place] [phone] Cheikh Tsang MD [address] 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
--- OUTSIDE RECORDS SUMMARY | 2024-09-08 14:29 | XMS_ITS | Encounter Summary ---
Author Organization [facility] Address [address] [place] [address] Care Team Providers Care Balance Weigher Name Role Phone Martha Arriaga MD Primary Care Provid er Encounter Details Date Type Department Care Team (Late st Contact Info) Description 01/04/1999 Outpatient Historical [facility] Internal Medicine Medical [place] [facility] [address] [facility] [address] [place] [address] Cheikh Tsang MD [address] [facility] [address] [place], [place] [id number] Social History Tobacco Use Types Packs/Day Years Used Date Smoking Tobacco: Never Assessed Comments Unknown Sex and Gender Information Value Date Recorded Sex Assigned at Not on file Legal Sex Female 3:23 AM GAMBLING SUPERVISOR Gender Identity Not on file Sexual Orientation Not on file documented as of this encounter Plan of Treatment Not on file documented as of this encounter Visit Diagnoses Not on filedocumented in this encounter Care Teams Balance Weigher Relationship Specialty Start Date End Date Martha Arriaga MD PCP - General Internal Medicine 05/10/20 documented as of this encounter
--- OUTSIDE RECORDS SUMMARY | 2024-09-08 14:29 | XMS_ITS | Encounter Summary ---
Author Organization [facility] Address [address] [place] [address] Care Team Providers Care Mobile Ui/Ux Designer Name Role Phone Mratha Arriaga MD Primary Care Provid er Encounter Details Date Type Department Care Team (Late st Contact Info) Description 11/03/2003 Outpatient Historical [facility] Internal Medicine - [place] [address] [place] [phone] [place]awn Sal[place]ña [place] [address] [place] [address] Social History Tobacco Use Types Packs/Day Years Used Date Smoking Tobacco: Never Assessed Comments Unknown Sex and Gender Information Value Date Recorded Sex Assigned at Not on file Legal Sex Female 3:23 AM CUSTOMER CARE MANAGER Gender Identity Not on file Sexual Orientation Not on file documented as of this encounter Last Filed Vital Signs Vital Sign Reading Time Taken Comments Blood Pressure 120/78 11/03/2003 9:15 AM CUSTOMER CARE MANAGER Pulse 66 11/03/2003 9:15 AM CUSTOMER CARE MANAGER Temperature - - Respiratory Rate - - Oxygen Saturation - - Inhaled Oxygen Concentration - - Weight 114.8 kg (253 lb) 11/03/2003 9:15 AM CUSTOMER CARE MANAGER Height - - Body Mass Index - - documented in this encounter Plan of Treatment Not on file documented as of this encounter Visit Diagnoses Not on filedocumented in this encounter Care Teams Mobile Ui/Ux Designer Relationship Specialty Start Date End Date Martha Arriaga MD PCP - General Internal Medicine 05/10/20 documented as of this encounter
--- OUTSIDE RECORDS SUMMARY | 2024-09-08 14:29 | XMS_ITS | Encounter Summary ---
Author Organization [employer] Address [address] [place] [address] Care Team Providers Care Enterprise Applications Manager Name Role Phone Martha Arriaga MD Primary Care Provid er Encounter Details Date Type Department Care Team (Latest Contact Info) Description 01/06/1999 Outpatient Historical [facility] CARDI[facility]ULMONARY Cheikh Tsang MD [facility] [address] [place] [address] Pain in limb (Primary Dx) Social History Tobacco Use Types Packs/Day Years Used Date Smoking Tobacco: Never Assessed Comments Unknown Sex and Gender Information Value Date Recorded Sex Assigned at Not on file Legal Sex Female 3:23 AM WELT INSOLE CHANNELER Gender Identity Not on file Sexual Orientation Not on file documented as of this encounter Plan of Treatment Not on file documented as of this encounter Visit Diagnoses Diagnosis Pain in limb- Primary documented in this encounter Care Teams Enterprise Applications Manager Relationship Specialty Start Date End Date Martha Arriaga MD PCP - General Internal Medicine 05/10/20 documented as of this encounter
--- OUTSIDE RECORDS SUMMARY | 2024-09-08 14:29 | XMS_ITS | Encounter Summary ---
Author Organization [email or web address] [facility] Address [address] [place] [address] Care Team Providers Care Waist Cutter Name Role Phone Martha Arriaga MD Primary Care Provid er Encounter Details Date Type Department Care Team (Latest Contact Info) Description 07/12/2003 Outpatient Historical HIS [facility] CAPRICE Saldaña, Luis Carlos SIMMONS W MANIF NEC ADULT ([facility]) (Primary Dx) Social History Tobacco Use Types Packs/Day Years Used Date Smoking Tobacco: Never Assessed Comments Unknown Sex and Gender Information Value Date Recorded Sex Assigned at Not on file Legal Sex Female 3:23 AM DEICER REPAIRER Gender Identity Not on file Sexual Orientation Not on file documented as of this encounter Plan of Treatment Not on file documented as of this encounter Visit Diagnoses Diagnosis 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
--- OUTSIDE RECORDS SUMMARY | 2024-09-08 14:29 | XMS_ITS | Encounter Summary ---
Author Organization [facility] Address [address] [place] [address] Care Team Providers Care Research Archaeologist Name Role Phone Martha Arriaga MD Primary Care Provid er Encounter Details Date Type Department Care Team (Late st Contact Info) Description 06/27/2004 Outpatient Historical [facility] [address] [place] [phone] [place] [address] [place] [address] Social History Tobacco Use Types Packs/Day Years Used Date Smoking Tobacco: Never Assessed Comments Unknown Sex and Gender Information Value Date Recorded Sex Assigned at Not on file Legal Sex Female 3:23 AM TABLEAU ANALYST Gender Identity Not on file Sexual Orientation Not on file documented as of this encounter Plan of Treatment Not on file documented as of this encounter Visit Diagnoses Not on filedocumented in this encounter Care Teams Research Archaeologist Relationship Specialty Start Date End Date Martha Arriaga MD PCP - General Internal Medicine 05/10/20 documented as of this encounter
--- OUTSIDE RECORDS SUMMARY | 2024-09-08 14:29 | XMS_ITS | Encounter Summary ---
Author Organization [facility] Address [address] [place] [address] Care Team Providers Care Senior Physician Name Role Phone Martha Arriaga MD Primary Care Provid er Encounter Details Date Type Department Care Team (Latest Contact Info) Description 06/19/[address] [facility] [address] [place] [address] Luis Carlos Saldaña OPEN WOUND KNEE/LEG-COMPL (Primary Dx) Social History Tobacco Use Types Packs/Day Years Used Date Smoking Tobacco: Never Assessed Comments Unknown Sex and Gender Information Value Date Recorded Sex Assigned at Not on file Legal Sex Female 3:23 AM HIGH DENSITY FINISHING OPERATOR Gender Identity Not on file Sexual Orientation Not on file documented as of this encounter Plan of Treatment Not on file documented as of this encounter Visit Diagnoses Diagnosis Open wound of knee, leg (except thigh), and ankle, complicated- Primary documented in this encounter Care Teams Senior Physician Relationship Specialty Start Date End Date Martha Arriaga MD PCP - General Internal Medicine 05/10/20 documented as of this encounter
--- OUTSIDE RECORDS SUMMARY | 2024-09-08 14:29 | XMS_ITS | Encounter Summary ---
Author Organization [employer] Address [address] [place] [address] Care Team Providers Care Unclaimed Property Manager Name Role Phone Martha Arriaga MD Primary Care Provid er Encounter Details Date Type Department Care Team (Latest Contact Info) Description 01/07/2000 Inpatient Historical HIS PATIENT IN A BED [facility] Incisional hernia without mention of obstruction or gangrene (Primary Dx) Social History Tobacco Use Types Packs/Day Years Used Date Smoking Tobacco: Never Assessed Comments Unknown Sex and Gender Information Value Date Recorded Sex Assigned at Not on file Legal Sex Female 3:23 AM EMPLOYEE SERVICE OFFICER Gender Identity Not on file Sexual Orientation Not on file documented as of this encounter Plan of Treatment Not on file documented as of this encounter Visit Diagnoses Diagnosis Incisional hernia without mention of obstruction or gangrene- Primary documented in this encounter Care Teams Unclaimed Property Manager Relationship Specialty Start Date End Date Martha Arriaga MD PCP - General Internal Medicine 05/10/20 documented as of this encounter
--- OUTSIDE RECORDS SUMMARY | 2024-09-08 14:29 | XMS_ITS | Encounter Summary ---
Author Organization [facility] Address [address] [place] [address] Care Team Providers Care Aircraft Navigator Name Role Phone Martha Arriaga MD Primary Care Provid er Encounter Details Date Type Department Care Team (Latest Contact Info) Description 01/10/1999 Outpatient Historical [facility] Cheikh Ortiz MD [facility] [address] [place] [address] Depressive disorder, not elsewhere classified (Primary Dx) Social History Tobacco Use Types Packs/Day Years Used Date Smoking Tobacco: Never Assessed Comments Unknown Sex and Gender Information Value Date Recorded Sex Assigned at Not on file Legal Sex Female 3:23 AM SOFT WATER MECHANIC Gender Identity Not on file Sexual Orientation Not on file documented as of this encounter Plan of Treatment Not on file documented as of this encounter Visit Diagnoses Diagnosis Depressive disorder, not elsewhere classified- Primary documented in this encounter Care Teams Aircraft Navigator Relationship Specialty Start Date End Date Martha Arriaga MD PCP - General Internal Medicine 05/10/20 documented as of this encounter
--- OUTSIDE RECORDS SUMMARY | 2024-09-08 14:29 | XMS_ITS | Encounter Summary ---
Author Organization [employer] Address [address] [place] [address] Care Team Providers Care Survey Research Manager Name Role Phone Martha Arriaga MD Primary Care Provid er Encounter Details Date Type Department Care Team (Latest Contact Info) Description 05/17/2004 Outpatient Historical [facility] CARDIOPULMON[facility] Luis Carlos Saldaña PAIN IN LIMB (Primary Dx) Social History Tobacco Use Types Packs/Day Years Used Date Smoking Tobacco: Never Assessed Comments Unknown Sex and Gender Information Value Date Recorded Sex Assigned at Not on file Legal Sex Female 3:23 AM COMMERCIAL HVAC SERVICE TECHNICIAN Gender Identity Not on file Sexual Orientation Not on file documented as of this encounter Plan of Treatment Not on file documented as of this encounter Visit Diagnoses Diagnosis Pain in limb- Primary documented in this encounter Care Teams Survey Research Manager Relationship Specialty Start Date End Date Martha Arriaga MD PCP - General Internal Medicine 05/10/20 documented as of this encounter
--- OUTSIDE RECORDS SUMMARY | 2024-09-08 14:29 | XMS_ITS | Encounter Summary ---
Author Organization [facility] Address [address] [place] [address] Care Team Providers Care Motor Coach Bus Driver Name Role Phone Martha Arriaga MD Primary Care Provid er Encounter Details Date Type Department Care Team (Late st Contact Info) Description 07/11/2004 Outpatient Historical [facility] Hyperbaric and Wound [facility] - [facility] [address] [place] [address] [place] [address] [place] [address] Social History Tobacco Use Types Packs/Day Years Used Date Smoking Tobacco: Never Assessed Comments Unknown Sex and Gender Information Value Date Recorded Sex Assigned at Not on file Legal Sex Female 3:23 AM SENIOR MICROSOFT NET DEVELOPER Gender Identity Not on file Sexual Orientation Not on file documented as of this encounter Plan of Treatment Not on file documented as of this encounter Visit Diagnoses Not on filedocumented in this encounter Care Teams Motor Coach Bus Driver Relationship Specialty Start Date End Date Martha Arriaga MD PCP - General Internal Medicine 05/10/20 documented as of this encounter
--- OUTSIDE RECORDS SUMMARY | 2024-09-08 14:29 | XMS_ITS | Encounter Summary ---
Author Organization [employer] Address [address] [place] [address] Care Team Providers Care Project Manager Entertainment And Media Name Role Phone Martha Arriaga MD Primary Care Provid er Encounter Details Date Type Department Care Team (Late st Contact Info) Description 11/08/1998 Outpatient Historical [facility] Charli Fuentes MD NO ADDRESS ON FILE Er, Authorized P NO ADDRESS ON FILE Contusion of unspecified part of trunk (Primary Dx) Social History Tobacco Use Types Packs/Day Years Used Date Smoking Tobacco: Never Assessed Comments Unknown Sex and Gender Information Value Date Recorded Sex Assigned at Not on file Legal Sex Female 3:23 AM CHECK EXAMINER Gender Identity Not on file Sexual Orientation Not on file documented as of this encounter Plan of Treatment Not on file documented as of this encounter Visit Diagnoses Diagnosis Contusion of unspecified part of trunk- Primary documented in this encounter Care Teams Project Manager Entertainment And Media Relationship Specialty Start Date End Date Martha Arriaga MD PCP - General Internal Medicine 05/10/20 documented as of this encounter
--- OUTSIDE RECORDS SUMMARY | 2024-09-08 14:29 | XMS_ITS | Encounter Summary ---
Author Organization [facility] Address [address] [place] [address] Care Team Providers Care Facility Technician Name Role Phone Martha Arriaga MD Primary Care Provid er Encounter Details Date Type Department Care Team (Latest Contact Info) Description 11/30/2002 Outpatient Historical [facility] CAPRICE Ferreira, John Wall MD NO ADDRESS ON FILE COAGULAT DEFECT NEC/NOS (Primary Dx) Social History Tobacco Use Types Packs/Day Years Used Date Smoking Tobacco: Never Assessed Comments Unknown Sex and Gender Information Value Date Recorded Sex Assigned at Not on file Legal Sex Female 3:23 AM SYSTEMS ENGINEERING MANAGER Gender Identity Not on file Sexual Orientation Not on file documented as of this encounter Plan of Treatment Not on file documented as of this encounter Visit Diagnoses Diagnosis Other and unspecified coagulation defects- Primary documented in this encounter Care Teams Facility Technician Relationship Specialty Start Date End Date Martha Arriaga MD PCP - General Internal Medicine 05/10/20 documented as of this encounter
--- OUTSIDE RECORDS SUMMARY | 2024-09-08 14:29 | XMS_ITS | Encounter Summary ---
Author Organization [facility] Address [address] [place] [address] Care Team Providers Care Regional Tanker Truck Driver Name Role Phone Martha Arriaga MD Primary Care Provid er Encounter Details Date Type Department Care Team (Latest Contact Info) Description 06/16/2004 Outpatient Historical [facility] Hyperbaric and Wound Treatment [facility] - [facility] [address] [place] [address] Luis Carlos Saldaña OPEN WOUND KNEE/LEG-COMPL (Primary Dx) Social History Tobacco Use Types Packs/Day Years Used Date Smoking Tobacco: Never Assessed Comments Unknown Sex and Gender Information Value Date Recorded Sex Assigned at Not on file Legal Sex Female 3:23 AM HEEL DIPPER Gender Identity Not on file Sexual Orientation Not on file documented as of this encounter Plan of Treatment Not on file documented as of this encounter Visit Diagnoses Diagnosis Open wound of knee, leg (except thigh), and ankle, complicated- Primary documented in this encounter Care Teams Regional Tanker Truck Driver Relationship Specialty Start Date End Date Martha Arriaga MD PCP - General Internal Medicine 05/10/20 documented as of this encounter
--- OUTSIDE RECORDS SUMMARY | 2024-09-08 14:29 | XMS_ITS | Encounter Summary ---
Author Organization [employer] Address [address] [place] [address] Care Team Providers Care Tomography Technologist Name Role Phone Martha Arriaga MD Primary Care Provid er Encounter Details Date Type Department Care Team (Late st Contact Info) Description 05/12/2004 Outpatient Historical [facility] MRI DEPT Ramon Garcia MD [address] [facility] [address] [place] [address] CONTUSION OF KNEE (Primary Dx) Social History Tobacco Use Types Packs/Day Years Used Date Smoking Tobacco: Never Assessed Comments Unknown Sex and Gender Information Value Date Recorded Sex Assigned at Not on file Legal Sex Female 3:23 AM NUMERICAL CONTROL MACHINE TOOL OPERATOR Gender Identity Not on file Sexual Orientation Not on file documented as of this encounter Plan of Treatment Not on file documented as of this encounter Visit Diagnoses Diagnosis Contusion of knee- Primary documented in this encounter Care Teams Tomography Technologist Relationship Specialty Start Date End Date Martha Arriaga MD PCP - General Internal Medicine 05/10/20 documented as of this encounter
--- OUTSIDE RECORDS SUMMARY | 2024-09-08 14:29 | XMS_ITS | Encounter Summary ---
Author Organization [facility] Address [address] [place] [address] Care Team Providers Care Upholsterer Inside Name Role Phone Martha Arriaga MD Primary Care Provid er Encounter Details Date Type Department Care Team (Late st Contact Info) Description 06/19/2004 Outpatient Historical [facility] Hyperbaric and Wound Treatment [facility] - [facility] [address] [place] [address] Elisa Doshi NO ADDRESS ON FILE Social History Tobacco Use Types Packs/Day Years Used Date Smoking Tobacco: Never Assessed Comments Unknown Sex and Gender Information Value Date Recorded Sex Assigned at Not on file Legal Sex Female 3:23 AM AMMONIA DISTILLER Gender Identity Not on file Sexual Orientation Not on file documented as of this encounter Plan of Treatment Not on file documented as of this encounter Visit Diagnoses Not on filedocumented in this encounter Care Teams Upholsterer Inside Relationship Specialty Start Date End Date aMrtha Arriaga MD PCP - General Internal Medicine 05/10/20 documented as of this encounter
--- OUTSIDE RECORDS SUMMARY | 2024-09-08 14:29 | XMS_ITS | Encounter Summary ---
Author Organization [facility] Address [address] [place] [address] Care Team Providers Care Beef Farmer Name Role Phone Martha Arriaga MD Primary Care Provid er Encounter Details Date Type Department Care Team (Late st Contact Info) Description 06/18/1998 Outpatient Historical [facility] Internal Medicine [place] [address] [place] [address] uLis Carlos Watts MD [address] [place] [address] Social History Tobacco Use Types Packs/Day Years Used Date Smoking Tobacco: Never Assessed Comments Unknown Sex and Gender Information Value Date Recorded Sex Assigned at Not on file Legal Sex Female 3:23 AM CUT FILER Gender Identity Not on file Sexual Orientation Not on file documented as of this encounter Plan of Treatment Not on file documented as of this encounter Visit Diagnoses Not on filedocumented in this encounter Care Teams Beef Farmer Relationship Specialty Start Date End Date Martha Arriaga MD PCP - General Internal Medicine 05/10/20 documented as of this encounter
--- OUTSIDE RECORDS SUMMARY | 2024-09-08 14:29 | XMS_ITS | Encounter Summary ---
Author Organization [facility] Address [address] [place] [address] Care Team Providers Care Emblem Cutter Name Role Phone Martha Arriaga MD Primary Care Provid er Encounter Details Date Type Department Care Team (Late st Contact Info) Description 06/16/2004 Outpatient Historical [facility] Hyperbaric and Wound Treatment Center - [facility] [address] [place] [address] Khris Simeon MD [address] [place] [address] Social History Tobacco Use Types Packs/Day Years Used Date Smoking Tobacco: Never Assessed Comments Unknown Sex and Gender Information Value Date Recorded Sex Assigned at Not on file Legal Sex Female 3:23 AM ASSISTANCE SPECIALIST Gender Identity Not on file Sexual Orientation Not on file documented as of this encounter Plan of Treatment Not on file documented as of this encounter Visit Diagnoses Not on filedocumented in this encounter Care Teams Emblem Cutter Relationship Specialty Start Date End Date Martha Arriaga MD PCP - General Internal Medicine 05/10/20 documented as of this encounter
--- OUTSIDE RECORDS SUMMARY | 2024-09-08 14:29 | XMS_ITS | Encounter Summary ---
Author Organization [facility] Address [address] [place] [address] Care Team Providers Care Materials Planning Analyst Name Role Phone Martha Arriaga MD Primary Care Provid er Encounter Details Date Type Department Care Team (Late st Contact Info) Description 11/15/2002 Outpatient Historical [facility] Noé Lobato MD [address] [place] [phone] Social History Tobacco Use Types Packs/Day Years Used Date Smoking Tobacco: Never Assessed Comments Unknown Sex and Gender Information Value Date Recorded Sex Assigned at Not on file Legal Sex Female 3:23 AM TECHNICAL DESIGNER Gender Identity Not on file Sexual Orientation Not on file documented as of this encounter Plan of Treatment Not on file documented as of this encounter Visit Diagnoses Not on filedocumented in this encounter Care Teams Materials Planning Analyst Relationship Specialty Start Date End Date Martha Arriaga MD PCP - General Internal Medicine 05/10/20 documented as of this encounter
== END 2024-09-08 13:50 | disposition home or self-care (01) ==
PROVIDERS: PCP Internal Medicine; Visit Provider Internal Medicine
DX: E04.2 Nontoxic multinodular goiter (principal)
CPT/HCPCS: 76536

== ENCOUNTER 2024-09-16 14:00 | Outpatient (CLI) | payer MEDICARE, MEDICAID, SELFPAY ==
--- NOTE | ~2024-09-16 | MM_ITS ---
EXAMINATION: MM screening shelli BI w helio HISTORY: Screening TECHNIQUE: Craniocaudal and mediolateral oblique 3-D tomosynthesis images were obtained and synthetic 2-D images were generated. CAD analysis was submitted and interpreted. COMPARISON: No prior mammogram is available for comparison at this institution. BREAST PARENCHYMAL COMPOSITION: Not dense: There are scattered areas of fibroglandular density. FINDINGS: There is no mammographic evidence for malignancy in the right breast. There is a cluster of indeterminate calcifications in the upper outer quadrant of the left breast, middle third. There are no suspicious masses or architectural distortion in the left breast. IMPRESSION: 1. Scattered indeterminate left breast calcifications, upper outer quadrant. 2. Magnification views are recommended. BI-RADS Category 0: Incomplete: Needs additional imaging evaluation. Reviewed, dictated and finalized at location B. CONVERSION OPERATOR
--- OUTSIDE RECORDS SUMMARY | 2024-09-16 14:58 | XMS_ITS | Encounter Summary ---
Author Organization [facility] Address [address] [place] [address] Care Team Providers Care Director Software Development Name Role Phone Martha Arriaga MD Primary Care Provid er Encounter Details Date Type Department Care Team (Late st Contact Info) Description 04/26/2005 Outpatient Historical [facility] - [facility] [address] [place] [phone] [place] [address] [place] [phone] Social History Tobacco Use Types Packs/Day Years Used Date Smoking Tobacco: Never Assessed Comments Unknown Sex and Gender Information Value Date Recorded Sex Assigned at Not on file Legal Sex Female 3:23 AM BRAIDED BAND ASSEMBLER Gender Identity Not on file Sexual Orientation Not on file documented as of this encounter Plan of Treatment Not on file documented as of this encounter Visit Diagnoses Not on filedocumented in this encounter Care Teams Director Software Development Relationship Specialty Start Date End Date Martha Arriaga MD PCP - General Internal Medicine 05/10/20 documented as of this encounter
--- OUTSIDE RECORDS SUMMARY | 2024-09-16 14:58 | XMS_ITS | Encounter Summary ---
Author Organization [facility] Address [address] [place] [address] Care Team Providers Care Metal Machine Setter Name Role Phone Martha Arriaga MD Primary Care Provid er Encounter Details Date Type Department Care Team (Late st Contact Info) Description 07/25/2004 Outpatient Historical [facility] - [facility] [address] [place] [phone] [place] [address] [place] [phone] Social History Tobacco Use Types Packs/Day Years Used Date Smoking Tobacco: Never Assessed Comments Unknown Sex and Gender Information Value Date Recorded Sex Assigned at Not on file Legal Sex Female 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
--- OUTSIDE RECORDS SUMMARY | 2024-09-16 14:58 | XMS_ITS | Encounter Summary ---
Author Organization [facility] Address [address] [place] [address] Care Team Providers Care Senior Embedded Software Engineer Name Role Phone Martha Arriaga MD Primary Care Provid er Encounter Details Date Type Department Care Team (Late st Contact Info) Description 08/27/2006 Outpatient Historical [facility] Luis Carlos Blackwell MD [address] [place] [phone] [place], Authorized P NO ADDRESS ON FILE Contusion of Back (Primary Dx) Social History Tobacco Use Types Packs/Day Years Used Date Smoking Tobacco: Never Assessed Comments Unknown Sex and Gender Information Value Date Recorded Sex Assigned at Not on file Legal 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
--- OUTSIDE RECORDS SUMMARY | 2024-09-16 14:58 | XMS_ITS | Encounter Summary ---
[facility] Address [address] [place] [address] Care Team Providers Care Compliance Clerk Name Role Phone Martha Arriaga MD Primary Care Provid er Encounter Details Date Type Department Care Team (Latest Contact Info) Description 12/22/2004 Outpatient Historical [facility] - [facility] [address] [place] [address] Luis Carlos Saldaña OPEN WOUND KNEE/LEG-COMPL (Primary Dx) Social History Tobacco Use Types Packs/Day Years Used Date Smoking Tobacco: Never Assessed Comments Unknown Sex and Gender Information Value Date Recorded Sex Assigned at Not on file Legal Sex Female 3: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
--- OUTSIDE RECORDS SUMMARY | 2024-09-16 14:58 | XMS_ITS | Encounter Summary ---
Author Organization [facility] Address [address] [place] [address] Care Team Providers Care Interior Design Professional Name Role Phone Martha Arriaga MD Primary Care Provid er Encounter Details Date Type Department Care Team (Late st Contact Info) Description 12/22/2004 Outpatient Historical [facility] - [facility] [address] [place] [phone] [place] [address] [place] [address] Social History Tobacco Use Types Packs/Day Years Used Date Smoking Tobacco: Never Assessed Comments Unknown Sex and Gender Information Value Date Recorded Sex Assigned at Not on file Legal Sex Female 3:23 AM HOT BOX SPOTTER Gender Identity Not on file Sexual Orientation Not on file documented as of this encounter Plan of Treatment Not on file documented as of this encounter Visit Diagnoses Not on filedocumented in this encounter Care Teams Interior Design Professional Relationship Specialty Start Date End Date Martha Arriaga MD PCP - General Internal Medicine 05/10/20 documented as of this encounter
--- OUTSIDE RECORDS SUMMARY | 2024-09-16 14:58 | XMS_ITS | Encounter Summary ---
Author Organization [facility] Address 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
--- OUTSIDE RECORDS SUMMARY | 2024-09-16 14:58 | XMS_ITS | Encounter Summary ---
Author Organization [facility] Address [address] [place] [address] Care Team Providers Care Garden Labourer Name Role Phone Martha Arriaga MD Primary Care Provid er Encounter Details Date Type Department Care Team (Late st Contact Info) Description 04/26/2005 Outpatient Historical [facility] - [facility] [address] [place] [phone] Luis Carlos Saldaña Social History Tobacco Use Types Packs/Day Years Used Date Smoking Tobacco: Never Assessed Comments Unknown Sex and Gender Information Value Date Recorded Sex Assigned at Not on file Legal Sex Female 3:23 AM CREDIT COUNSELOR Gender Identity Not on file Sexual Orientation Not on file documented as of this encounter Plan of Treatment Not on file documented as of this encounter Visit Diagnoses Not on filedocumented in this encounter Care Teams Garden Labourer Relationship Specialty Start Date End Date Martha Arriaga MD PCP - General Internal Medicine 05/10/20 documented as of this encounter
--- OUTSIDE RECORDS SUMMARY | 2024-09-16 14:58 | XMS_ITS | Encounter Summary ---
Author Organization [employer] [facility] [employer] [facility] Address 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
--- OUTSIDE RECORDS SUMMARY | 2024-09-16 14:58 | XMS_ITS | Encounter Summary ---
Author Organization [facility] Address [address] [place] [address] Care Team Providers Care Cooky Machine Operator Name Role Phone Martha Arriaga MD Primary Care Provid er Encounter Details Date Type Department Care Team (Late st Contact Info) Description 10/27/2002 Outpatient Historical [facility] Internal Medicine - [place] [address] [place] [phone] [place] Saldaña [place] [address] [place] [address] Social History Tobacco Use Types Packs/Day Years Used Date Smoking Tobacco: Never Assessed Comments Unknown Sex and Gender Information Value Date Recorded Sex Assigned at Not on file Legal Sex Female 3:23 AM PHOTO COLORER Gender Identity Not on file Sexual Orientation Not on file documented as of this encounter Plan of Treatment Not on file documented as of this encounter Visit Diagnoses Not on filedocumented in this encounter Care Teams Cooky Machine Operator Relationship Specialty Start Date End Date Martha Arriaga MD PCP - General Internal Medicine 05/10/20 documented as of this encounter
--- OUTSIDE RECORDS SUMMARY | 2024-09-16 14:59 | XMS_ITS | Encounter Summary ---
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
--- OUTSIDE RECORDS SUMMARY | 2024-09-16 14:59 | XMS_ITS | Encounter Summary ---
Author Organization [facility] Address [address] [place] [address] Care Team Providers Care Superintendent Warehouse Name Role Phone Martha Arriaga MD Primary Care Provid er Encounter Details Date Type Department Care Team (Latest Contact Info) Description 03/20/2001 Outpatient Historical 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
--- OUTSIDE RECORDS SUMMARY | 2024-09-16 14:59 | XMS_ITS | Encounter Summary ---
Author Organization [facility] Address [address] [place] [address] Care Team Providers Care Tankman Name Role Phone Martha Arriaga MD Primary Care Provid er Encounter Details Date Type Department Care Team (Latest Contact Info) Description 07/25/2004 Outpatient Historical [facility] W[facility] - [facility] [address] [place] [address] Luis Carlos Saldaña OPEN WOUND KNEE/LEG-COMPL (Primary Dx) Social History Tobacco Use Types Packs/Day Years Used Date Smoking Tobacco: Never Assessed Comments Unknown Sex and Gender Information Value Date Recorded Sex Assigned at Not on file Legal Sex Female 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
--- OUTSIDE RECORDS SUMMARY | 2024-09-16 14:59 | XMS_ITS | Encounter Summary ---
Author Organization [facility] Address [address] [place] [address] Care Team Providers Care Health Information Administrator Name Role Phone Martha Arriaga MD Primary Care Provid er Encounter Details Date Type Department Care Team (Late st Contact Info) Description 10/30/2001 Outpatient Historical [facility] Internal Medicine [facility] [place] [facility] [address] [facility] [address] [place] [phone] Cheikh Tsang MD [address] [facility] [address] [place], [place] [phone] Social History Tobacco Use Types Packs/Day Years Used Date Smoking Tobacco: Never Assessed Comments Unknown Sex and Gender Information Value Date Recorded Sex Assigned at Not on file Legal Sex Female 3:23 AM CHIN STRAP MAKER Gender Identity Not on file Sexual Orientation Not on file documented as of this encounter Plan of Treatment Not on file documented as of this encounter Visit Diagnoses Not on filedocumented in this encounter Care Teams Health Information Administrator Relationship Specialty Start Date End Date Martha Arriaga MD PCP - General Internal Medicine 05/10/20 documented as of this encounter
--- OUTSIDE RECORDS SUMMARY | 2024-09-16 14:59 | XMS_ITS | Clinical Summary ---
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 DICTATION LOCATION: [facility] TECHNIQUE: Full-field digital craniocaudal and mediolateral [...] Most Recently Relevant to Health Maintenance Insurance [facility] [id number] Care Teams Pastoral Counselor Relationship Specialty Start Date End Date Martha Arriaga MD PCP - General Internal Medicine 05/10/20
--- OUTSIDE RECORDS SUMMARY | 2024-09-16 14:59 | XMS_ITS | Patient Health Summary ---
Author Organization [facility] Address [address] [place] [address] Care Team Providers Care Photo Mask Processor Name Role Phone Janny Torres MD Unavailable [phone] Noé Lew MD Primary Care Provider Note from [facility],non-owned Affiliates and Associated Physician Practices is amultiple site organization consisting of ambulatory clinics and hospital sitesin [place], [place], [place] and [place]. This disclosure is being madepursuant to the Care Everywhere program and may not contain all information available regarding this patient. Last updated 18.[facility] Allergies * Codeine(Anaphylaxis) -High Criticality * Contrast-Iodinated [...] * vitamin D, ergocalciferol, (Drisdol) 1.25 MG (42386 UT) capsule(Started 06/25/2024) 1 (one) capsule every [...] Sex Assigned at Female 07/19/2022 2:59 PM BRIM PLATER Gender Identity Female 07/19/2022 2:59 PM BRIM PLATER Sexual Orientation Straight 07/19/2022 2: 59 PM BRIM PLATER Travel History Travel Start Travel End [place] 09/07/2024 09/07/2024 Last Filed Vital Signs Vital Sign Reading Time Taken Comments Blood Pressure 151/94 09/07/2024 9:55 AM BRIM PLATER Pulse 90 09/07/2024 9:55 AM BRIM PLATER Temperature 36.6 C (97.9 F) 09/07/2024 9:55 AM BRIM PLATER Respiratory Rate 14 05/16/2023 11:17 AM CDT Oxygen Saturation 92% 09/07/2024 9:55 AM BRIM PLATER Inhaled Oxygen Concentration - - Weight 150.1 kg (331 lb) 09/07/2024 9:55 AM BRIM PLATER Height 165.1 cm (5' 5 ) 09/07/2024 9:55 AM BRIM PLATER Body Mass Index 55.08 09/07/2024 9:55 AM BRIM PLATER Medical Devices Implanted Type Area Dyeing Machine Back Tender Device Identifier Shelf Expiration Date Model / Serial / Lot Stent Uret 6fr 22-30cm Pgtl Crv Tpr Tip Implanted:Qty: 1 on 10/05/2022 by Janny Torres MD at [facility] Right: Ureter [employer]imed 06/24/2025 [id number] / / [id number] Procedures * CT ABDOMEN PELVIS W CONTRAST(Performed [...] 10/05/2022) Performed for Calculus of ureter * GA PERCUT REMV KID STONE,2+ CM(Performed 10/05/2022) * [...] 08/24/2022) * LARYNGEAL MASK AIRWAY(Performed 08/22/2022) * GA CYSTOSCOPY,REMV CALCULUS,SIMPLE(Performed 08/22/2022) Performed for N20.0 * GA FRAGMENTING OF KIDNEY STONE(Performed 08/22/2022) Performed for [...] Abdomen Pelvis W Contrast (07/04/2024 4:27 PM BRIM PLATER) Anatomical Region Laterality Modality Abdomen, Pelvis Computed Tomogra phy 07/05/2024 9:07 AM BRIM PLATER Impressions 07/05/2024 9:25 AM BRIM PLATER IMPRESSION: 1.Hepatomegaly with steatosis 2.Multiple ventral hernias as described. No bowel obstruction. 3.Decreased collection within the right kidney. Follow-up ultrasound recommended. 4.Nonobstructing left renal calculi 5.Hiatal hernia 6.Right adnexal cyst 7.Cardiomegaly > Interpreting Provider: Kelton Reyna MD on 07/05/2024 9:25 AM Narrative 07/05/2024 9:[address] ABDOMEN WITH CONTRAST CT PELVIS WITH [...] CREATININE - POCT INTERFACED (07/04/2024 4:06 PM BRIM PLATER) Creatinine POCT 0.86 0.70 - 1.20 mg/dL 07/04/2024 4:14 PM BRIM PLATER [facility] eGFR 73(L) >=90 mL/min/1.7 3 m2 07/04/2024 4:14 PM BRIM PLATER [facility] Blood BLOOD SPECIMEN / Unknown 07/04/2024 4:06 PM BRIM PLATER 07/04/2024 4:14 PM BRIM PLATER Provider Unknown LAB - POINT OF CARE ORDERABLES [facility] [address] [place] [address] * PTH INTACT (05/07/2024 12:54 PM CDT) PTH Intact 57 15 - 65 pg/mL [facility] ACCOUNT BILL 05/07/2024 12:5 4 PM CDT 05/07/2024 Narrative [facility] ACCOUNT BILL - 05/08/2024 10:11 AM CDT Performed at: 01 - [address] [id number] [employer] Power[employer] Mechanic Helper: Danny Lemos PhD, Phone: [phone] Janny Torres MD LAB - CHEMISTRY OR DERABLES [facility] ACCOUNT BILL [address] [place] [address] * XR ABDOMEN KUB (05/01/2024 11:08 AM CDT) Only the most recent of2 resultswithin the time period is included. Anatomical Region Laterality Modality Abdomen Radiographic Eda ging 05/01/2024 1:56 PM CDT Impressions 05/01/2024 1:57 PM CDT IMPRESSION: Small calculi overlie the lower pole of the left kidney. > Interpreting Provider: Ally Roberts MD on 05/01/2024 1:57 PM Narrative 05/01/2024 1:57 PM CDT PROCEDURE: XR ABDOMEN KUB DATE/TIME OF EXAM: [...] was placed supine on the procedure table. Entertainment Usher radiograph of the left lower quadrant was [...] was placed supine on the procedure table. Entertainment Usher radiograph of the left lower quadrant was [...] the procedure well [facility]. There were no [...] CDT Impression: CT-guided placement of an 8 Sudanese pigtail drainage catheter in right renal hematoma, [...] evaluation, please review the evaluation forms in [facility]. For details on monitored clinical parameters during the intra-service sedation time, please review the procedure nurse documentation in [facility]. > Interpreting Provider: Angelito Driscoll MD on 05/17/2023 4:47 PM Narrative 05/17/2023 4:47 PM CDT History: Right renal hematoma complicated by Page kidney Operators: 1.Angelito Driscoll MD Anesthesia: 1.Local anesthesia - 10 mL of 1% Lidocaine 2.Intravenous conscious sedation - Versed 2.5 mg and Fentanyl 125 mcg Procedure: 1.Limited noncontrast CT of the abdomen. 2.CT-guided placement of 8 Sudanese pigtail drainage catheter in a subcapsular right [...] was provided with 1% Lidocaine. A 5 Sudanese co-axial needle system was advanced in stages under CT guidance. Upon aspiration of fluid, the outer-sheath was advanced within the collection. A 0.035 inch guidewire was looped within the collection, and following series of dilatation/exchanges, a 8 Sudanese pigtail drainage catheter was advanced into the [...] of the abdomen. 2.CT-guided placement of 8 Sudanese pigtail drainage catheter in a subcapsular right [...] was provided with 1% Lidocaine. A 5 Sudanese co-axialneedle system was advanced in stages under CT guidance. Upon aspiration offluid, the outer-sheath was advanced within the collection. A 0.035 inchguidewire was looped within the collection, and following series of dilatation/exchanges, a 8 Sudanese pigtail drainage catheter was advanced into the [...] the procedure well and [facility]. There were no immediate complicationsassociated with the procedure. Impression: CT-guided placement of an 8 Sudanese pigtail drainage catheterin right renal hematoma, as [...] intravenously in my presence, and monitored by theprocedure nurse as an independent trained observer who [...] evaluation, please review the evaluation forms in [facility]. For details on monitored clinical parameters during the intra-service sedation time, please review the procedure nurse documentation in [facility]. > Interpreting Provider: Angelito Driscoll MD on 05/17/2023 4:[address] MD [address] ORDERABLES * CULTURE FLUID+GRAM STAIN (05/16/2023 10:51 AM CDT) Culture No growth TERRELL 05/20/2023 3:14 AM CDT [facility] Gram Stain Light Polymorphonuclear cells 05/20/2023 3:14 AM CDT [facility] Gram Stain No organisms seen 023 3:14 AM CDT [facility] Fluid BODY FLUID SPECIMEN / Unknown Collection / Unknown 05/16/2023 10:51 AM CDT 05/16/2023 12:07 PM CDT Janny Torres MD LAB - MICROBIOLOGY ORDERABLES Performing Organization Address City/[facility]/ZIP Co de Phone Number [facility] [address] [place] [address], [facility] [phone] * CULTURE FUNGUS OTHER+FUNGUS SMEAR (05/16/2023 10:49 AM CDT) Culture No fungus isolated TERRELL 06/10/2023 8:16 AM CDT [facility] Fungus Stain No yeast or hyphae seen 06/10/2023 8:16 AM CDT [facility] Microbiology ENTIRE KIDNEY / Unknown Collection / Unknown 05/16/2023 10:49 AM CDT 05/16/2023 12:07 PM CDT Janny Torres MD LAB - MICROBIOLOGY ORDERABLES [facility] [address] [place] [address], [facility] [phone] * CULTURE AFB+SMEAR (05/16/2023 10:49 AM CDT) Culture No acid-fast bacillus isolated 06/24/2023 7:31 AM BRIM PLATER [facility] AFB Smear No acid-fast bacilli seen 06/24/2023 7:31 AM BRIM PLATER [facility] Microbiology ENTIRE KIDNEY / Unknown Collection / Unknown 05/16/2023 10:49 AM CDT 05/16/2023 12:07 PM CDT Janny Torres MD LAB - MICROBIOLOGY ORDERABLES Performing Organization Address City/[facility] Co de Phone Number [facility] [address] [place] [address], [facility] [phone] * CULTURE ANAEROBE (05/16/2023 10:49 AM CDT) Only the most recent of3 resultswithin the time period is included. Culture No anaerobic organisms isolated TERRELL 05/21/2023 7:48 AM CDT [facility] Microbiology ENTIRE KIDNEY / Unknown Collection / Unknown 05/16/2023 10:49 AM CDT 05/16/2023 12:07 PM CDT Janny Torres MD LAB - MICROBIOLOGY ORDERABLES Performing Organization Address [facility] de Phone Number [facility] [address] [place] [address], [facility] [phone] * PT-INR (05/16/2023 8:31 AM CDT) Only the most recent of3 resultswithin the time period is included. PT 14.0 12.1 - 14.8 sec 05/16/2023 8:51 AM CDT [facility] INR 1.1 0.9 - 1.1 05/16/2023 8:51 AM CDT [facility] Blood BLOOD SPECIMEN / Unknown Venipuncture / Unknown 05/16/2023 8:31 AM CDT 05/16/2023 8:38 AM CDT Narrative [facility] - 05/16/2023 8:51 AM CDT Conventional Warfarin Anticoagulant Therapy: INR Reference Range: 2.0-3.0 Intensive Warfarin Anticoagulant Therapy: INR Reference Range: 2.5-3.5 Chan Sarkar MD LAB - COAGULATION OR DERABLES Performing Organization Address City/[facility] Co de Phone Number [facility] [address] [address] * (ABNORMAL) CBC W AUTO DIFFERENTIAL (05/16/2023 8:31 AM CDT) Only the most recent of6 resultswithin the time period is included. WBC 6.0 4.4 - 10.7 x10E9/L 05/16/2023 8:42 AM CDT [facility] WBC Corrected 05/16/2023 8:42 AM CDT [facility] RBC 4.75 3.80 - 5.20 x10E12/L 05/16/2023 8:42 AM CDT [facility] Hemoglobin 12.4 12.0 - 15.6 gm/dL 05/16/2023 8:42 AM CDT [facility] Hematocrit 39.6 35.9 - 45.5 % 05/16/2023 8:42 AM CDT [facility] MCV 83.4 80.7 - 98.3 fl 05/16/2023 8:42 AM CDT [facility] MCH 26.1(L) 26.7 - 34.0 pg 05/16/2023 8:42 AM CDT [facility] MCHC 31.3 30.8 - 35.9 gm/dL 05/16/2023 8:42 AM CDT [facility] Platelet Count 187 153 - 416 x10E9/L 05/16/2023 8:42 AM CDT [facility] RDW-CV 14.4 12.1 - 14.9 % 05/16/2023 8:42 AM CDT [facility] MPV 11.8 9.4 - 12.9 fl 05/16/2023 8:42 AM CDT [facility] Neutrophils % 54.9 44.0 - 73.0 % 05/16/2023 8:42 AM CDT [facility] Lymphocytes % 35.3 20.0 - 43.0 % 05/16/2023 8:42 AM CDT [facility] Monocytes % 7.2 5.0 - 13.0 % 05/16/2023 8:42 AM CDT [facility] Eosinophils % 1.7 0.0 - 6.0 % 05/16/2023 8:42 AM CDT [facility] Basophils % 0.7 0.0 - 2.0 % 05/16/2023 8:42 AM CDT [facility] Immature Granulocytes 0.2 0 - 1 % 05/16/2023 8:42 AM CDT [facility] Neutrophil Absolute 3.27 2.01 - 7.14 x10E9/L 05/16/2023 8:42 AM CDT [facility] Lymphocytes Absolute 2.10 1.07 - 3.94 x10E9/L 05/16/2023 8:42 AM CDT [facility] Monocytes Absolute 0.43 0.26 - 1.07 x10E9/L 05/16/2023 8:42 AM CDT [facility] Eosinophils Absolute 0.10 0 - 0.47 x10E9/L 05/16/2023 8:42 AM CDT [facility] Basophils Absolute 0.04 0 - 0.08 x10E9/L 05/16/2023 8:42 AM CDT [facility] Immature Granulocytes Absolute 0.01 0.00 - 0.06 x10E9/L 05/16/2023 8:42 AM CDT [facility] nRBC Auto 0 /100 WBC 05/16/2023 8:42 AM [facility] Blood BLOOD SPECIMEN / Unknown Venipuncture / Unknown 05/16/2023 8:31 AM CDT 05/16/2023 8:38 AM CDT Chan Sarkar MD LAB - HEMATOLOGY ORD ERABLES [facility] [address] [place] [address] * (ABNORMAL) BASIC METABOLIC PANEL (CALCIUM TOTAL) (05/16/2023 8:31 AM CDT) Only the most recent of4 resultswithin the time period is included. Glucose 107(H) 70 - 105 mg/dL 05/16/2023 8:55 AM CDT [facility] Sodium 141 136 - 145 mmol/L 05/16/2023 8:55 AM [facility] Potassium 4.0 3.5 - 5.1 mmol/L 05/16/2023 8:55 AM CDT [facility] Chloride 102 98 - 107 mmol/L 05/16/2023 8:55 AM CDT [facility] CO2 29 22 - 29 mmol/L 05/16/2023 8:55 AM CDT [facility] Calcium 9.4 8.4 - 10.4 mg/dL 05/16/2023 8:55 AM CDT [facility] Anion Gap 10 6 - 16 mmol/L 05/16/2023 8:55 AM CDT [facility] BUN 20 7 - 26 mg/dL 05/16/2023 8:55 AM CDT [facility] Creatinine 1.37(H) 0.57 - 1.11 mg/dL 05/16/2023 8:55 AM T [facility] eGFR by CKD-EPI 42(L) >=90 mL/min/1.7 3 m2 05/16/2023 8:55 AM [facility] Blood BLOOD SPECIMEN / Unknown Venipuncture / Unknown 05/16/2023 8:31 AM CDT 05/16/2023 8:38 AM CDT Chan Sarkar MD LAB - CHEMISTRY [facility] Organization Address City/State/ZIP Co de Phone Number [facility] [address] [place] [address] * URINALYSIS AUTO - POINT OF CARE (AMB) STL (05/03/2023 10:14 AM CDT) Only the most recent of4 resultswithin the time period is included. Clarity UA POCT n/a [facility] Color UA POCT n/a [facility] Leukocyte UA 3+ Negative [facility] Nitrite UA POCT neg Negative [facility] Urobilinogen UA 0.2 0.1 - 1.[address] [facility] Protein UA POCT 1+ Negative [facility] pH UA 6.0 5.0 - 8.[address] [facility] Blood UA 3+ Negative [facility] Specific [place] UA POCT 1.020 1.002 - 1.[address] [facility] Ketone UA neg Negative [facility] Bilirubin UA POCT neg Negative [facility] Glucose UA neg Negative [facility] Expiration Date 5 [facility] Lot # [id number] [facility] QC Verified Yes Yes [facility] Urine URINE / Unknown 05/03/2023 1 0:14 AM CDT Janny Torres MD LAB - POINT OF CAR E ORDERABLES [facility] [address] [place] [address], [facility] [phone] * CT RENAL STONE PROTOCOL (04/26/2023 3:10 [...] PM Narrative 04/26/2023 4:12 PM CDT PROCEDURE: CT RENAL STONE DATE/TIME OF EXAM: 04/26/2023 3:12 PM, LOCATION [facility] INDICATION: N20.0: Calculus of kidney. HISTORY: Right flank pain. Stone suspected. Previous procedure of the kidney. COMPARISON: CT from 10/05/2019. TECHNIQUE: 5mm axial images were obtained without IV contrast. Sagittal and coronal reformats were obtained. FINDINGS: Examination of [...] DATE/TIME OF EXAM: 04/26/2023 3:12 PM, LOCATION [facility] INDICATION: N20.0: Calculus of kidney. HISTORY: [...] PM Narrative 12/19/2022 4:30 PM CDT PROCEDURE: US RETROPERITONEAL COMPLETE DATE/TIME OF EXAM: 12/19/2022 2:31 PM CLINICAL INFORMATION: None relevant/not provided if blank. Indication: Z46.6: Encounter for fitting and adjustment of urinary device N20.0: Calculus of kidney Additional History: COMPARISON: CT from 10/05/2022. TECHNIQUE: Real-time ultrasound of the kidneys and bladder with DICOM image capture performed by biotechnologist. FINDINGS: Ultrasound examination of the right and [...] and bladder with DICOMimage capture performed by biotechnologist. FINDINGS: Ultrasound examination of the right and [...] CARDIAC RHYTHM STRIP ORDER (10/08/2022 11:36 PM BRIM PLATER) Only the most recent of2 resultswithin the time period is included. Narrative 10/08/2022 11:36 PM BRIM PLATER Ordered by an unspecified provider. Scanned Document CARDIAC SERVICES ORD ERABLES * FL LEONELA SURGERY (10/05/2022 3:58 PM BRIM PLATER) Narrative [facility] - 10/05/2022 3:59 PM BRIM PLATER For details of this study, please see the providers note. Janny Torres MD FLUOROSCOPY ORDERA BLES [facility] [address] [place] [address] * STONE ANALYSIS QUANT (10/05/2022 2:31 PM BRIM PLATER) Stone Weight 1426 mg 10/13/2022 11:06 PM BRIM PLATER [facility] ([facility]) Stone Source Comment 10/13/2022 11:06 PM BRIM PLATER [facility] ([facility]) Comment:Not provided Stone color Reynaga 10/13/2022 11:06 PM [facility] ([facility]) Stone size 9x8 mm 10/13/2022 11:06 PM [facility] ([facility]) Comment: Multiple pieces received. Dimensions of the largest piece reported. Stone Composition Comment 023 11:06 PM BRIM PLATER [facility] ([facility]) Comment:Percentage (Represen ts the % composition) Calcium Oxalate Monoh 75 % 10/13/2022 11:06 PM BRIM PLATER [facility] ([facility]) Calcium Oxalate Dihyd 20 % 10/13/2022 11:06 PM BRIM PLATER [facility] ([facility]) Hydroxyapatite 5 % 10/13/2022 11:06 PM BRIM PLATER [facility] ([facility]) Comment Comment 10/13/2022 11:06 PM BRIM PLATER [facility] ([facility]) Comment: Calcium phosphate (hydroxyl form) includes hydroxyapatite, amorphous calcium phosphate, and whitlockite. Hydroxyapatite is the most common of the calcium phosphate salts found in human kidney stones. Comment Comment 10/13/2022 11:06 PM BRIM PLATER [facility] ([facility]) Comment: Calculus received wet. Wet calculi must be dried before analysis, which delays reporting of results. Leaving calculi wet (such as water, saline, blood, urine) may lead to changes in composition. Stone photo Comment 10/13/2022 11:06 PM [facility]) Comment:Photograph will foll ow under a separate cover Comment: Comment 10/13/2022 11:06 PM [facility]) Comment: Physician questions regarding Calculi Analysis contact [facility] at: [phone]. Please Note: Comment 10/13/2022 11:06 PM [facility] ([facility]) Comment: Calculi report will follow via computer, mail or simulation engineer delivery. Disclaimer: Comment 10/13/2022 11:06 PM [facility] ([facility]) Comment: This test was developed and its performance characteristics determined by [facility]. It has not been cleared or approved by the Food and Drug Administration. Pathology/Cytolo gy KIDNEY STONE / Unknown 10/05/2022 2:31 PM BRIM PLATER 10/09/2022 7:57 AM BRIM PLATER Narrative [facility] ([facility]) - 10/13/2022 11:06 PM BRIM PLATER Performed at: 01 - [facility] [address] [place] [address] Dr [address], [place], [place] [id number] [employer]othermal Powerplant Mechanic Helper: Colt Leong PhD, Phone: [phone] Janny Torres MD LAB - URINE CHEMIS TRY ORDERABLES [facility] ([facility]) [address] [place] [address] * IR PERC NEPHROSTOMY RIGHT (10/05/2022 12:50 PM BRIM PLATER) Anatomical Region Laterality Modality Abdomen X-Ray Angiograph y 10/08/2022 1:12 PM BRIM PLATER Impressions 10/08/2022 5:48 PM BRIM PLATER IMPRESSION: SONOGRAPHICALLY AND FLUOROSCOPICALLY GUIDED PLACEMENT OF A 5 PERSIAN KUMPE CATHETER OVER AN AMPLATZ STIFF WIRE, THROUGH THE RIGHT KIDNEY, PAST THE PELVIC CALCULUS, INTO THE URINARY BLADDER. > Interpreting Provider: Jeff Farrar MD on 10/08/2022 5:48 PM Narrative 10/08/2022 5:48 PM BRIM PLATER PROCEDURE: IR PERC NEPHROSTOMY RIGHT, DATE/TIME OF EXAM: 10/05/2022 1:02 PM, LOCATION [facility] INDICATION: N20.0: Calculus of kidney ADDITIONAL CLINICAL [...] The procedure was performed by Dr. Farrar. Relevant prior imaging studies were reviewed. The procedure [...] was passed, percutaneously, towards the right kidney. Contrast was injected, [...] guide wire passed into the collecting system. A dermatotomy was made, and the needle was withdrawn and replaced with a coaxial system. A Bentson guidewire was passed through the 6 Sudanese coaxial access system and a hydrophilic guidewire was directed caudally, past the large filling defect/calculus, into the ureter. This was followed with the 65 cm 5 Sudanese Kumpe catheter and directed into the urinary bladder. An exchange was made [...] minutes of fluoroscopy. FINDINGS: As above, the jig grinder set up operator images, under fluoroscopy, showed an ovoid calculus at the ureteropelvic junction. Images show mild pelvicalyceal dilatation. Final images, with the Kumpe catheter in the urinary bladder, confirming the access from a posterior calyx, through the collecting system, past the calculus, into the bladder.. Procedure Note Jeff Farrar MD - 10/08/2022 PROCEDURE: IR PERC NEPHROSTOMY RIGHT, DATE/TIME OF EXAM: :02 PM, LOCATION [facility] INDICATION: N20.0: Calculus of kidney ADDITIONAL CLINICAL [...] Bentson guidewire was passed through the 6 Sudanese coaxial accesssystem and a hydrophilic guidewire was directed caudally, past the largefilling defect/calculus, into the ureter. This was followed with the 65 cm 5 Sudanese Kumpe catheter and directedinto the urinary bladder. [...] minutes of fluoroscopy. FINDINGS: As above, the jig grinder set up operator images, under fluoroscopy, showed anovoid calculus at the ureteropelvic junction. Images show mild pelvicalyceal dilatation. Final images, with the Kumpe catheter in the urinarybladder, confirming the access from a posterior calyx, through the collecting system, past the calculus, into the bladder.. IMPRESSION: SONOGRAPHICALLY AND FLUOROSCOPICALLY GUIDED PLACEMENT OF A5 PERSIAN KUMPE CATHETER OVER AN AMPLATZ STIFF WIRE, THROUGH THE RIGHTKIDNEY, PAST THE PELVIC CALCULUS, INTO THE URINARY BLADDER. > Interpreting Provider: Jeff Farrar MD on 10/08/2022 5:48 PM Janny Torres MD IR ORDERABLES * EKG 12-LEAD (10/05/2022 10:09 AM BRIM PLATER) Ventricular Rate 85 BPM [facility] Atrial Rate 85 BPM [facility] P-R Interval 160 ms [facility] QRS Duration ms 82 ms [facility] Q-T Interval ms 378 ms [facility] QTC Calculation (Bezet) 449 ms [facility] Calculated P [place] 35 degrees [facility] Calculated R [place] 21 degrees [facility] Calculated T [place] 28 degrees [facility] Interpretation EKG Normal sinus rhythm Cannot rule out Anterior infarct seen also in 01/16/08 Abnormal ECG When compared with ECG of 16-JAN-2008 19:22, unconfirmed No significant change was found Confirmed by MD KASHIF, SOSA Ohara ([id number]) on 10/09/2022 8:05:57 AM [facility] MUSE 10/05/2022 10:0 9 AM BRIM PLATER 10/09/2022 8:05 AM BRIM PLATER Sukhjinder Quezada DO ECG ORDERABLES [facility] MUSE * TYPE + SCREEN PANEL (10/05/2022 9:36 AM BRIM PLATER) ABO Rh A POS 10/05/2022 10:37 AM BRIM PLATER [facility] BLOOD BANK LAB Comment:No history; collect retype. Antibody Screen NEG 10:37 AM BRIM PLATER [facility] BLOOD BANK LAB Blood Bank BLOOD SPECIMEN / Unknown Venipuncture / Unknown 10/05/2022 9:36 AM BRIM PLATER 10/05/2022 9:45 AM BRIM PLATER Janny Torres MD LAB - BLOOD BANK O RDERABLES [facility] BLOOD BANK LAB [facility] [phone] * CT ABDOMEN AND PELVIS NON IV CONTRAST (10/05/2022 9:28 AM BRIM PLATER) Anatomical Region Laterality Modality Abdomen, Pelvis Computed Tomogra phy 10/05/2022 10:3 8 AM BRIM PLATER Impressions 10/05/2022 1:39 PM BRIM PLATER IMPRESSION: 1. Right renal pelvic calculus with moderate right-sided hydronephrosis. Right-sided ureteric stent in place. Additional right renal lower pole calculi. 2. Nonobstructive left renal lower pole calculi. Edited by Melinda Gordon on 10/05/2022 11:24 AM > Interpreting Provider: Julieta Rae MD on 10/05/2022 1:39 PM Narrative 10/05/2022 1:39 PM BRIM PLATER PROCEDURE: CT ABDOMEN PELVIS WO CONTRAST, DATE/TIME OF EXAM: 10/05/2022 9:29 AM, LOCATION [facility] INDICATION: N20.0: Calculus of kidney ADDITIONAL CLINICAL [...] DATE/TIME OF EXAM: 10/05/2022 9:29 AM, LOCATION [facility] INDICATION: N20.0: Calculus of kidney ADDITIONAL CLINICAL [...] * BLOOD TYPE VERIFICATION (10/05/2022 9:25 AM BRIM PLATER) ABO Rh A POS 10/05/2022 10:35 AM BRIM PLATER [facility] BLOOD BANK LAB Blood Bank BLOOD SPECIMEN / Unknown Lab Venipuncture / Unknown 10/05/2022 9:25 AM BRIM PLATER 10/05/2022 9:47 AM BRIM PLATER Janny Torres MD LAB - BLOOD BANK O RDERABLES [facility] BLOOD BANK LAB [place] [address], [facility] [phone] * GROSS EXAM PATHOLOGY (STL) (10/05/2022 12:00 AM BRIM PLATER) Case Report Surgical Pathology Report Case: [id number] Authorizing Provider: Janny Schmidt MD Collected: 10/05/2022 12:00 AM Ordering Location: [address] ORTHOPEDICS Received: 10/08/2022 10:52 AM Pathologist: Joelle Chin MD Specimen: Calculus Kidney 10/09/2022 8:47 AM BRIM PLATER [facility]ORATORY Final Diagnosis Calculus, kidney, removal: - Consistent with removed calculus (gross examination only). SD 10/09/2022 8:47 AM BRIM PLATER [facility] Gross Description Received in saline labeled Schlund, stone analysis are multiple brown-reynaga, multifaceted calculi, 3 cm in greatest aggregate dimension. The specimen is submitted for gross examination only. JI/ns 10/09/2022 8:47 AM [facility] Embedded Images 10/09/2022 8:47 AM [facility] Pathology/Cytolog y KIDNEY STONE / Unknown 10/05/2022 10/08/2022 10:52 AM BRIM PLATER Janny Torres MD LAB - PATHOLOGY/CY TOLOGY ORDERABLES [facility] [address] [place] [address] * LARYNGEAL [employer] (08/22/2022 10:11 AM BRIM PLATER) Narrative Zee Yost APRN-CRNA - 08/22/2022 10:11 AM BRIM PLATER Zee Yost APRN-CRNA 08/22/2022 10:12 AM LMA Placement Procedure/LDA Note: Patient Location: OR. LMA Insertion Date/Time: 08/22/2022 10:06 AM Procedure: LMA. Pretreatment: 100% O2 Induction: standard IV Patient position: sniffing. Mask Ventilation: not attempted Type: gel LMA Size: 4 Number of Attempts: 1. Placement verified by: direct visualization, bilateral breath sounds, chest auscultation and CO2 monitor Dentition unchanged? Yes Procedure Start Time: 08/22/2022 10:06 AM. Staff Section Anesthesia Provider: Zee Yost APRN-CRNA Provider #1: Lou Wynne RN, Performed the procedure. Additional Comments: Atraumatic successful LMA placement x1 attempt by SRNA. Teeth and lip as preop. Misael Madrigal MD GENERAL ANESTH ESIA ORDERABLES * (ABNORMAL) CULTURE URINE (07/04/2022 8:33 AM BRIM PLATER) Urine Culture Routine Final report(A) [facility] INSURANCE [...] mL Antimicrobial Susceptibility [facility] INSURANCE BILL Comment: S = Susceptible; I = Intermediate; R = Resistant P = Positive; N = Negative MICS are expressed in micrograms per mL Antibiotic RSLT#1 RSLT#2 RSLT#3 RSLT#4 Amoxicillin/Clavulanic Acid S Ampicillin S Cefepime S Ceftriaxone S Cefuroxime S Ciprofloxacin S Ertapenem S Gentamicin S Imipenem S Levofloxacin S Meropenem S Nitrofurantoin S Piperacillin/Tazobactam S Tetracycline S Tobramycin S Trimethoprim/Sulfa S Urine URINE SPECIMEN OBTAINED BY CLEAN CATCH PROCEDURE / Unknown 07/04/2022 8:33 AM BRIM PLATER 07/04/2022 Narrative Resulting Agency Comment Lab Testing performed at: [facility] [address] [facility] [phone] Janny Torres MD LAB - MICROBIOLOGY ORDERABLES [facility] INSURANCE BILL [address] [place] [address] * LAB RESULTS ORDER (01/11/2014 4:39 PM CDT) Narrative 01/11/2014 4:39 PM CDT Ordered by an unspecified provider. Transcriptions Document, Scanned - 01/11/2014 4:39 PM CDT Scanned Document LAB - THERAPEUTIC DR UG MONITORING ORDERABLES * VANCOMYCIN LEVEL RANDOM (01/08/2014 10:59 AM CDT) Vancomycin Random 11.3 ug/mL 01/08/2014 11:27 AM CDT [facility] Blood BLOOD SPECIMEN / Unknown Lab Venipuncture / Unknown 01/08/2014 10:59 AM CDT 01/08/2014 11:04 AM CDT Narrative [facility] - 01/08/2014 11:27 AM CDT No reference range available for random Vancomycin levels. All results interpreted by ordering physician. Cheikh Urias DO LAB - CHEMISTRY ORDE RABBERNADETTE Performing Organization Address City/[facility]/ZIP Co de Phone Number [facility] [address] [address] * PT PTT PANEL (01/07/2014 2:40 PM CDT) Only the most recent of5 resultswithin the time period is included. PT 10.0 9.3 - 11.4 sec 01/07/2014 3:06 PM CDT [facility] INR 0.95 0.92 - 1.12 01/07/2014 3:06 PM CDT [facility] PTT 27.5 23.0 - 34.0 sec 01/07/2014 3:06 PM CDT [facility] Blood BLOOD SPECIMEN / Unknown Lab Venipuncture / Unknown 01/07/2014 2:40 PM CDT 01/07/2014 2:50 PM CDT Narrative [facility] - 01/07/2014 3:06 PM CDT Conventional Anticoagulant Therapy INR Reference Ranges: 2.0-3.0 Intensive Anticoagulant Therapy INR Reference Ranges: 2.5-3.5 Cheikh Urias DO LAB - COAGULATION OR DERABLES [facility] [address] [address] * FL VENOGRAM EXTREMITY UNILATERAL (01/07/2014 2:30 [...] PM CDT Narrative 01/07/2014 1:[address] PM [address]T [address] [address] Lower Extremity Venous Ultrasound Report Pat.Name: ALLY YANES Pat.ID: [id number] St.Date: 01/06/2014 Exam Time: 9:53:00 PM Study Type:LE Venous Age: 8 1955,58Y Sex: FEMALE Sonogrphr: Helga Cardenas RVT Room: ER 21 Reason for Study:Swelling -Leg, right, Pain -Leg, right, + D-Dimer, Calf pain - right, Cellulitis History / Clinical:Obesity, History of DVT Visit ID: [id number] SUMMARY: Negative for DVT at this time. [...] PM Ze Avila MD Procedure Note 01/07/[address] [address] Lower Extremity Venous Ultrasound Report Pat.Name: ALLY YANES Pat.ID: [id number] .Date: 01/06/2014 Exam Time: 9:53:00 PM Study Type:LE Venous Age: 8 1955,58Y Sex: FEMALE Sonogrphr: Helga Cardenas RVT Room: ER 21 Reason for Study:Swelling -Leg, right, Pain -Leg, right, + D-Dimer, Calf pain - right, Cellulitis History / Clinical:Obesity, History of DVT Visit ID: [id number] SUMMARY: Negative for DVT at this time. [...] of2 resultswithin the time period is included. Culture No Growth 01/13/2014 11:22 AM CDT [facility] Blood PERIPHERAL BLOOD / Unknown 01/06/2014 7:43 PM CDT 01/06/2014 7:53 PM CDT Garrett Graham MD LAB - MICROBIOLOGY O RDERABLES Performing Organization Address [facility] Co de Phone Number [facility] [address] [place] [address], [facility] * (ABNORMAL) D-DIMER (01/06/2014 6:54 PM CDT) [facility] D-Dimer 2.74(H) 0 - 0.5 mg/L FEU 01/06/2014 7:11 PM CDT [facility] Blood BLOOD SPECIMEN / Unknown Venipuncture / Unknown 01/06/2014 6:54 PM CDT 01/06/2014 6:58 PM CDT Narrative [facility] - 01/06/2014 7:11 PM CDT Elevated results above the normal range may indicate DIC in the appropriate clinical setting. Serial evaluations may yield information regarding the clinical [...] - COAGULATION OR DERABLES Performing Organization Address [facility] Co de Phone Number [facility] [address] [place] [address] * CBC W MANUAL DIFFERENTIAL (01/06/2014 6:51 PM CDT) [facility] WBC 6.1 4.4 - 10.7 x10^9/L 01/06/2014 7:01 PM CDT [facility] RBC 4.56 3.80 - 5.20 x10^12/L 01/06/2014 7:01 PM CDT [facility] Hemoglobin 12.7 12.0 - 15.6 gm/dL 01/06/2014 7:01 PM CDT [facility] Hematocrit 37.8 35.9 - 45.5 % 01/06/2014 7:01 PM CDT [facility] MCV 82.9 80.7 - 98.3 fl 01/06/2014 7:01 PM CDT [facility] MCH 27.9 26.7 - 34.0 pg 01/06/2014 7:01 PM CDT [facility] MCHC 33.6 30.8 - 35.9 gm/dL 01/06/2014 7:01 PM CDT [facility] RDW-CV 13.7 12.1 - 14.9 % 01/06/2014 7:01 PM CDT [facility] MPV 11.0 9.4 - 12.9 fl 01/06/2014 7:01 PM CDT [facility] Platelet Count 297 153 - 416 x10^9/L 01/06/2014 7:01 PM T [facility] Blood BLOOD SPECIMEN / Unknown Venipuncture / Unknown 01/06/2014 6:51 PM CDT 01/06/2014 6:58 PM CDT Garrett Graham MD LAB - HEMATOLOGY ORD ERABLES [facility] [address] [facility] [place] [address] * (ABNORMAL) COMPREHENSIVE METABOLIC PANEL (01/06/2014 6:51 PM CDT) Only the most recent of2 resultswithin the time period is included. Glucose 109(H) 74 - 106 mg/dL 01/06/2014 7:15 PM CDT [facility] Sodium 139 136 - 145 mmol/L 01/06/2014 7:15 PM CDT [facility] Potassium 4.5 3.5 - 5.1 mmol/L 01/06/2014 7:15 PM CDT [facility] Chloride 102 98 - 107 mmol/L 01/06/2014 7:15 PM CDT [facility] CO2 29 22 - 31 mmol/L 01/06/2014 7:15 PM CDT [facility] Calcium 9.0 8.5 - 10.1 mg/dL 01/06/2014 7:15 PM CDT [facility] Anion Gap 8 5 - 15 mmol/L 01/06/2014 7:15 PM CDT [facility] BUN 12 7 - 21 mg/dL 01/06/2014 7:15 PM T [facility] Creatinine 0.54 0.50 - 1.30 mg/dL 01/06/2014 7:15 PM T [facility] eGFR by MDRD >60 >60 mL/min/1.7 3m2 01/06/2014 7:15 PM T [facility] eGFR by MDRD >60 >60 mL/min/1.7 3m2 01/06/2014 7:15 PM T [facility] Alkaline Phosphatase 138(H) 38 - 126 U/L 01/06/2014 7:15 PM T [facility] ALT 74 12 - 78 U/L 01/06/2014 7:15 PM [facility] AST 66(H) 5 - 40 U/L 01/06/2014 7:15 PM [facility] Protein Total 9.0(H) 6.4 - 8.2 gm/dL 01/06/2014 7:15 PM [facility] Albumin 3.0(L) 3.4 - 5.0 gm/dL 01/06/2014 7:15 PM [facility] Bilirubin Total 0.5 0.2 - 1.0 mg/dL 01/06/2014 7:15 PM [facility] Blood BLOOD SPECIMEN / Unknown Venipuncture / Unknown 01/06/2014 6:51 PM CDT 01/06/2014 6:58 PM CDT Narrative [facility] - 01/06/2014 7:15 PM CDT Slight hemolysis. Garrett Graham MD LAB - CHEMISTRY SHRADDHA JOYA [facility] Organization Address City/State/ZIP Co de Phone Number [facility] [address] [place] [address] * DIFFERENTIAL MANUAL (01/06/2014 6:51 PM CDT) WBC Auto 6.1 x10^9/L 01/06/2014 7:34 PM CDT [facility] Neutrophil % Manual 57 44 - 73 % 01/06/2014 7:34 PM CDT [facility] Lymphocytes % Manual 31 20 - 43 % 01/06/2014 7:34 PM CDT [facility] Monocytes % Manual 8 5 - 13 % 01/06/2014 7:34 PM CDT [facility] Eosinophils % Manual 2 0 - 6 % 01/06/2014 7:34 PM CDT [facility] Band % Manual 2 0 - 11 % 01/06/2014 7:34 PM CDT [facility] Cells Counted 100 # cells 01/06/2014 7:34 PM T [facility] RBC Morphology Normal 01/06/2014 7:34 PM T [facility] WBC Morph Normal 01/06/2014 7:34 PM CDT [facility] Blood BLOOD SPECIMEN / Unknown 01/06/2014 6:51 PM CDT 01/06/2014 6:58 PM CDT Garrett Graham MD LAB - HEMATOLOGY ORD ERABLES [facility] [address] [address] * CARDIAC PROCEDURE ORDER (06/21/2009 5:37 PM BRIM PLATER) Narrative 06/21/2009 5:37 PM BRIM PLATER Ordered by an unspecified provider. Transcriptions Document, Scanned - 06/20/2009 12:00 AM BRIM PLATER Scanned Document CARDIAC SERVICES ORD ERABLES * IR FLUORO GUIDE FOR SPINAL INJECTION (06/20/2009 2:40 PM BRIM PLATER) Anatomical Region Laterality Modality Radiographic Eda ging 06/20/2009 4:43 PM BRIM PLATER Impressions 06/20/2009 5:22 PM BRIM PLATER Successful fluoroscopic guided cervical epidural steroid injection as described above. Narrative 06/20/2009 5:22 PM BRIM PLATER Fluoroscopic guided cervical epidural steroid injection Clinical [...] PM CDT Impressions 06/06/2009 7:04 PM CDT Multiple hemangiomata scattered throughout the spine. Broad-based [...] no critical narrowing. Procedure Note Zee Tamayo M - 06/06/2009 Indication: Abdominal pain, low back [...] PM CDT No fracture or dislocation identified. See above. Narrative 11/21/2008 3:55 PM CDT Examination: Left ankle three views Indication: Left [...] Gomez DO DIAGNOSTIC IMAGING O RDERABLES * XR LEFT KNEE 4+ VIEWS (11/20/2008 10:18 PM CDT) Anatomical Region Laterality Modality Lower Extremity Radiographic Eda ging 11/21/2008 11:1 2 AM CDT Impressions 11/21/2008 3:55 PM CDT No fracture or dislocation identified. See above. Narrative 11/21/2008 3:55 PM CDT Examination: Left knee four views Indication: Trauma. [...] Gomez DO DIAGNOSTIC IMAGING O RDERABLES * XR LEFT FOOT (11/20/2008 10:18 PM CDT) Anatomical Region Laterality Modality Ankle / Foot Radiographic Eda ging 11/20/2008 11:2 4 PM CDT Impressions 02/17/2009 2:44 PM CDT No fracture or dislocation identified. See above. Narrative 02/17/2009 2:44 PM CDT Examination: Left foot 3 views Indication: Left [...] GROSS + MICRO EXAM (09/24/2008 1:15 PM BRIM PLATER) Only the most recent of3 resultswithin the time period is included. Result CASE NUMBER [id number] Comment: ORDERING PHYSICIAN CONNOR LEON SPECIMEN TYPE Hematoma DATE OF PROCEDURE 09/24/2008 SPECIMEN LABELED Hematoma left thigh PRE-OP DIAGNOSIS Cellulitis left leg GROSS DESCRIPTION GROSS DESCRIPTION The specimen is received in formalin labeled hematoma left thigh patient Ally Yanes, and consists of multiple fragments of red and pink tissue having an aggregate weight of 4 grams. The fragments range in size from 7 mm to 2 cm. Some of the larger fragments appear to be segments of blood vessels with blood clots. [place] sections are submitted in cassettes A1 and A2. Dictated by Dr. Kavon Hammond M.D. MICROSCOPIC DESCRIPTION Sections show fragments of blood vessels consistent with vein. Most of them are dilated and contain recent thrombi. There is inflammation of the vessel wall, as well as the small amount of adjacent soft tissue included. The histologic changes are consistent with thrombophlebitis. DIAGNOSIS Specimen submitted as hematoma, left thigh , resection fragments of vein with changes consistent with thrombophlebitis (please see gross and microscopic description). Dictated by Dr. Kavon Hammond Chandelier Maker ALLY GROSS Electronically Signed By DOREEN HAMMOND MISCELLANEOUS SAMPLES / Unknown 09/24/2008 1:15 PM BRIM PLATER 09/24/2008 2:19 PM BRIM PLATER Historical Provider LAB - PATHOLOGY/C YTOLOGY ORDERABLES * CULTURE WOUND (09/24/2008 1:15 PM BRIM PLATER) Result [facility] Comment: Final ACCN COMMENT Hematoma - left leg - septic thromb* GRAM STAIN Heavy rbc's Rare WBC's No organisms seen CULTURE No growth. HEMATOMA / Unknown 9 1:15 PM BRIM PLATER 09/24/2008 2:27 PM BRIM PLATER Narrative Resulting Agency Comment Performed By [facility] [address] [place] [address] Connor Leon MD LAB - MICROBIOLOGY O KENNY Performing Organization Address [facility] Co de Phone Number [facility] * CULTURE FLUID (03/29/2008 11:00 AM CDT) Result [facility] Comment: Final GRAM STAIN Moderate WBC's No organisms seen CULTURE swab sent No growth. 03/29/2008 11:0 0 AM CDT 03/29/2008 12:10 PM CDT Narrative Resulting Agency Comment Performed By [facility] [address] [place] [address] Connor Leon MD LAB - MICROBIOLOGY O KENNY Performing Organization Address [facility] de Phone Number [facility] * US GUIDE NEEDLE PLACEMENT (03/29/2008 10:33 [...] the skin and subcutaneous tissue. 19-gauge 5 Sudanese catheter was then placed under ultrasound into [...] LEON REF- CON- PCP- TONY LEONARD SCP- Procedure Note Kelton Reyna - 03/29/2008 Ultrasound-guided [...] the skin and subcutaneous tissue. 19-gauge 5 Sudanese catheter was then placed under ultrasound into [...] REYNA M.D. Released Date Time- 03/29/08 1423 - CONNOR LEON ATT- CONNOR LEON REF- CON- PCP- TONY LEONARD SCP- Connor Leon MD ORDERABLES Care Teams Photo Mask Processor Relationship Specialty Start Date End Date Noé Lew MD [address] [place] [address] PCP - General Internal Medicine 07/04/24 Janny Torres MD [address] [place] [address] [address] [phone] Physician Urology 05/07/24
--- OUTSIDE RECORDS SUMMARY | 2024-09-16 14:59 | XMS_ITS | Encounter Summary ---
Author Organization [facility] Address [address] [place] [address] Care Team Providers Care Railway Switchman Name Role Phone Martha Arriaga MD Primary Care Provid er Encounter Details Date Type Department Care Team (Late st Contact Info) Description 09/01/2001 Outpatient Historical [facility] Internal Medicine Medical [place] [facility] [address] [facility] [address] [address] Frankie Raygoza MD NO ADDRESS ON FILE Social History Tobacco Use Types Packs/Day Years Used Date Smoking Tobacco: Never Assessed Comments Unknown Sex and Gender Information Value Date Recorded Sex Assigned at Not on file Legal Sex Female 3:23 AM SALES AGENT Gender Identity Not on file Sexual Orientation Not on file documented as of this encounter Plan of Treatment Not on file documented as of this encounter Visit Diagnoses Not on filedocumented in this encounter Care Teams Railway Switchman Relationship Specialty Start Date End Date Martha Arriaga MD PCP - General Internal Medicine 05/10/20 documented as of this encounter
--- OUTSIDE RECORDS SUMMARY | 2024-09-16 14:59 | XMS_ITS | Clinical Summary ---
Author Organization [facility] Ditto Address [address] [place] [address] Care Team Providers Care Pulp Mill Team Leader Name Role Phone Janny Torres MD Unavailable [phone] Noé Lew MD Primary Care Provider [phone] Source Comments [facility],non-owned Affiliates and Associated Physician Practices is amultiple site organization consisting of ambulatory clinics and hospital sitesin [place], [place], [place] and [place]. This disclosure is being madepursuant to the Care Everywhere program and may not contain all information available regarding this patient. Last updated 18.[facility] Allergies Active Allergy Reactions Criticality Noted Date [...] Status vitamin D, ergocalciferol, (Drisdol) 1.25 MG (99926 UT) capsule 1 (one) capsule every 7 [...] Department Care Team Description 09/07/2024 10:00 AM MEDICAL TECHNOLOGIST CHIEF Office Visit [facility] - Rheumatology [address] [facility], [place] [address] Gaby Lion MD Ribonucleoprotein antibody positive (Primary Dx) 09/07/2024 Travel 08/26/2024 Travel 07/04/2024 3:41 PM MEDICAL TECHNOLOGIST CHIEF - 07/04/2024 11:59 PM MEDICAL TECHNOLOGIST CHIEF Hospital Encounter [facility] Health Imaging Services - CT Scan [facility] [place] [address] Discharge Disposition: Home or Self Care from [...] Sex Assigned at Female 07/19/2022 2:59 PM MEDICAL TECHNOLOGIST CHIEF Gender Identity Female 07/19/2022 2:59 PM MEDICAL TECHNOLOGIST CHIEF Sexual Orientation Straight 07/19/2022 2: 59 PM MEDICAL TECHNOLOGIST CHIEF Travel History Travel Start Travel End [place] 09/07/2024 09/07/2024 Last Filed Vital Signs Vital Sign Reading Time Taken Comments Blood Pressure 151/94 09/07/2024 9:55 AM MEDICAL TECHNOLOGIST CHIEF Pulse 90 09/07/2024 9:55 AM MEDICAL TECHNOLOGIST CHIEF Temperature 36.6 C (97.9 F) 09/07/2024 9:55 AM MEDICAL TECHNOLOGIST CHIEF Respiratory Rate 14 05/16/2023 11:17 AM CDT Oxygen Saturation 92% 09/07/2024 9:55 AM MEDICAL TECHNOLOGIST CHIEF Inhaled Oxygen Concentration - - Weight 150.1 kg (331 lb) 09/07/2024 9:55 AM MEDICAL TECHNOLOGIST CHIEF Height 165.1 cm (5' 5 ) 09/07/2024 9:55 AM MEDICAL TECHNOLOGIST CHIEF Body Mass Index 55.08 09/07/2024 9:55 AM MEDICAL TECHNOLOGIST CHIEF Plan of Treatment Upcoming Encounters Date Type Department Care Team (Late st Contact Info) Description 05/06/2025 10:00 AM CDT Office Visit [facility] - Urology [address], [address] [place] [address] Janny Torres MD [address] [place] [address] Health Maintenance [...] 2024 INFLUENZA VACCINE (#1) 2024 MEDICARE AWV CALENDAR YEAR 2024 SCREENING FOR DIABETES 05/16/2026 [...] this topic Medical Devices Implanted Type Area Technical Support Professional Device Identifier Shelf Expiration Date Model / Serial / Lot Stent Uret 6fr 22-30cm Pgtl Crv Tpr Tip Implanted:Qty: 1 on 10/05/2022 by Janny Torres MD at [facility] Right: [employer]ter [employer] Scimed 06/24/2025 [id number] / / [id number] Procedures Procedure Name Priority Date/Time Associated Diagnosis Comments CT ABDOMEN PELVIS W CONTRAST Routine 07/04/2024 4:27 PM MEDICAL TECHNOLOGIST CHIEF Abdominal pain, unspecified abdominal location CREATININE - POCT INTERFACED Routine 07/04/2024 4:06 PM MEDICAL TECHNOLOGIST CHIEF BASIC METABOLIC PANEL (CALCIUM TOTAL) TEQUILA 05/16/2023 8:31 AM CDT Right renal stone from Last 3 Months or Most Recently Relevant to Health Maintenance Results * CT Abdomen Pelvis W Contrast (07/04/2024 4:27 PM MEDICAL TECHNOLOGIST CHIEF) Anatomical Region Laterality Modality Abdomen, Pelvis Computed Tomogra phy 07/05/2024 9:07 AM MEDICAL TECHNOLOGIST CHIEF Impressions 07/05/2024 9:25 AM MEDICAL TECHNOLOGIST CHIEF IMPRESSION: 1.Hepatomegaly with steatosis 2.Multiple ventral hernias as described. No bowel obstruction. 3.Decreased collection within the right kidney. Follow-up ultrasound recommended. 4.Nonobstructing left renal calculi 5.Hiatal hernia 6.Right adnexal cyst 7.Cardiomegaly > Interpreting Provider: Deacon Reyna MD on 07/05/2024 9:25 AM Narrative 07/05/2024 9:25 AM [address]CHNOLOGIST CHIEF CT ABDOMEN WITH CONTRAST CT PELVIS WITH [...] CREATININE - POCT INTERFACED (07/04/2024 4:06 PM MEDICAL TECHNOLOGIST CHIEF) Creatinine POCT 0.86 0.70 - 1.20 mg/dL 07/04/2024 4:14 PM MEDICAL TECHNOLOGIST CHIEF [facility] eGFR 73(L) >=90 mL/min/1.7 3 m2 07/04/2024 4:14 PM MEDICAL TECHNOLOGIST CHIEF [facility] Blood BLOOD SPECIMEN / Unknown 07/04/2024 4:06 PM MEDICAL TECHNOLOGIST CHIEF 07/04/2024 4:14 PM MEDICAL TECHNOLOGIST CHIEF Provider Unknown LAB - POINT OF CARE ORDERABLES Performing Organization Address City/[facility] Co de Phone Number [facility] [address] [place] [phone] * (ABNORMAL) BASIC METABOLIC PANEL (CALCIUM TOTAL) (05/16/2023 8:31 AM CDT) Glucose 107(H) 70 - 105 mg/dL 05/16/2023 8:55 AM T [facility] Sodium 141 136 - 145 mmol/L 05/16/2023 8:55 AM CDT [facility] Potassium 4.0 3.5 - 5.1 mmol/L 05/16/2023 8:55 AM T [facility] Chloride 102 98 - 107 mmol/L 05/16/2023 8:55 AM CDT [facility] CO2 29 22 - 29 mmol/L 05/16/2023 8:55 AM CDT [facility] Calcium 9.4 8.4 - 10.4 mg/dL 05/16/2023 8:55 AM [facility] Anion Gap 10 6 - 16 mmol/L 05/16/2023 8:55 AM CDT [facility] BUN 20 7 - 26 mg/dL 05/16/2023 8:55 AM CDT [facility] Creatinine 1.37(H) 0.57 - 1.11 mg/dL 05/16/2023 8:55 AM CDT [facility] eGFR by CKD-EPI 42(L) >=90 mL/min/1.7 3 m2 05/16/2023 8:55 AM CDT [facility] Blood BLOOD SPECIMEN / Unknown Venipuncture / Unknown 05/16/2023 8:31 AM CDT 05/16/2023 8:38 AM CDT Chan Sarkar MD LAB - CHEMISTRY KRISTINAE MAHNAZ [facility] Organization Address City/State/ZIP Co de Phone Number [facility] [address] [address] from Last 3 Months or Most Recently Relevant to Health Maintenance Advance Directives * Full Code (Latest Code Status on File) Date Activated Date Inactivated Comments 10/05/2022 2:55 PM 10/06/2022 3:16 PM * Full Code Date Activated Date Inactivated Comments 01/06/2014 10:09 PM 01/10/2014 2:39 PM Care Teams Pulp Mill Team Leader Relationship Specialty Start Date End Date Noé Lew MD [address] [place] [phone] PCP - General Internal Medicine 07/04/24 Janny Torres MD [address] [place] [id number] Physician Urology 05/07/24
--- OUTSIDE RECORDS SUMMARY | 2024-09-16 14:59 | XMS_ITS | Referral Summary ---
Author Organization [facility] Address [address] [place] [address] Care Team Providers Care Ladle Operator Name Role Phone Janny Torres MD Unavailable [phone] Noé Lew MD Primary Care Provider [phone] Source Comments [facility],non-owned Affiliates and Associated Physician Practices is amultiple site organization consisting of ambulatory clinics and hospital sitesin [place], [place], [place] and [place]. This disclosure is being madepursuant to the Care Everywhere program and may not contain all information available regarding this patient. Last updated 18.[facility] Encounters Date Type Department Care Team Description 09/07/2024 Travel 09/07/2024 10:00 AM MEDIA TECHNICIAN Office Visit [facility] - Rheumatology [facility] [place] [phone] Gaby Lion MD Ribonucleoprotein antibody positive (Primary Dx) 08/26/2024 Travel 07/04/2024 3:41 PM MEDIA TECHNICIAN - 07/04/2024 11:59 PM MEDIA TECHNICIAN Hospital Encounter [facility] Imaging Services - CT Scan [facility] [place] [address] Discharge Disposition: Home or Self [...] Status vitamin D, ergocalciferol, (Drisdol) 1.25 MG (54183 UT) capsule 1 (one) capsule every 7 [...] Sex Assigned at Female 07/19/2022 2:59 PM MEDIA TECHNICIAN Gender Identity Female 07/19/2022 2:59 PM MEDIA TECHNICIAN Sexual Orientation Straight 07/19/2022 2: 59 PM MEDIA TECHNICIAN Travel History Travel Start Travel End [place] 09/07/2024 09/07/2024 Last Filed Vital Signs Vital Sign Reading Time Taken Comments Blood Pressure 151/94 09/07/2024 9:55 AM MEDIA TECHNICIAN Pulse 90 09/07/2024 9:55 AM MEDIA TECHNICIAN Temperature 36.6 C (97.9 F) 09/07/2024 9:55 AM MEDIA TECHNICIAN Respiratory Rate 14 05/16/2023 11:17 AM CDT Oxygen Saturation 92% 09/07/2024 9:55 AM MEDIA TECHNICIAN Inhaled Oxygen Concentration - - Weight 150.1 kg (331 lb) 09/07/2024 9:55 AM MEDIA TECHNICIAN Height 165.1 cm (5' 5 ) 09/07/2024 9:55 AM MEDIA TECHNICIAN Body Mass Index 55.08 09/07/2024 9:55 AM MEDIA TECHNICIAN Functional Status Functional Status Response Date of [...] Description 05/06/2025 10:00 AM CDT Office Visit [facility] Medical [facility] - Urology [address], [address] [place] [address] Janny Torres MD [address] [place] [phone] Medical Devices Implanted Type Area Finisher Map And Chart Device Identifier Shelf Expiration Date Model / Serial / Lot Stent Uret 6fr 22-30cm Pgtl Crv Tpr Tip Implanted:Qty: 1 on 10/05/2022 by Janny Torres MD at [facility] Right: [employer] 06/24/2025 [id number] / / [id number] Procedures Procedure Name Priority Date/Time Associated Diagnosis Comments CT ABDOMEN PELVIS W CONTRAST Routine 07/04/2024 4:27 PM MEDIA TECHNICIAN Abdominal pain, unspecified abdominal location CREATININE - POCT INTERFACED Routine 07/04/2024 4:06 PM MEDIA TECHNICIAN BASIC METABOLIC PANEL (CALCIUM TOTAL) TEQUILA 05/16/2023 8:31 AM CDT Right renal stone from Last 3 Months or Most Recently Relevant to Health Maintenance Results * CT Abdomen Pelvis W Contrast (07/04/2024 4:27 PM MEDIA TECHNICIAN) Anatomical Region Laterality Modality Abdomen, Pelvis Computed Tomogra phy 07/05/2024 9:07 AM MEDIA TECHNICIAN Impressions 07/05/2024 9:25 AM MEDIA TECHNICIAN IMPRESSION: 1.Hepatomegaly with steatosis 2.Multiple ventral hernias as described. No bowel obstruction. 3.Decreased collection within the right kidney. Follow-up ultrasound recommended. 4.Nonobstructing left renal calculi 5.Hiatal hernia 6.Right adnexal cyst 7.Cardiomegaly > Interpreting Provider: Deacon Reyna MD on 07/05/2024 9:25 AM Narrative 07/05/2024 9:[address] ABDOMEN WITH CONTRAST CT PELVIS WITH [...] CREATININE - POCT INTERFACED (07/04/2024 4:06 PM MEDIA TECHNICIAN) Creatinine POCT 0.86 0.70 - 1.20 mg/dL 07/04/2024 4:14 PM MEDIA TECHNICIAN [facility] eGFR 73(L) >=90 mL/min/1.7 3 m2 07/04/2024 4:14 PM MEDIA TECHNICIAN [facility] Blood BLOOD SPECIMEN / Unknown 07/04/2024 4:06 PM MEDIA TECHNICIAN 07/04/2024 4:14 PM MEDIA TECHNICIAN Provider Unknown LAB - POINT OF CARE ORDERABLES Performing Organization Address City/State/[facility] Co de Phone Number [facility] [address] [place] [phone] * (ABNORMAL) BASIC METABOLIC PANEL (CALCIUM TOTAL) (05/16/2023 8:31 AM CDT) Glucose 107(H) 70 - 105 mg/dL 05/16/2023 8:55 AM CDT [facility] Sodium 141 136 - 145 mmol/L 05/16/2023 8:55 AM CDT [facility] Potassium 4.0 3.5 - 5.1 mmol/L 05/16/2023 8:55 AM CDT [facility] Chloride 102 98 - 107 mmol/L 05/16/2023 8:55 AM CDT [facility] CO2 29 22 - 29 mmol/L 05/16/2023 8:55 AM CDT [facility] Calcium 9.4 8.4 - 10.4 mg/dL 05/16/2023 8:55 AM CDT [facility] Anion Gap 10 6 - 16 mmol/L 05/16/2023 8:55 AM CDT [facility] BUN 20 7 - 26 mg/dL 05/16/2023 8:55 AM CDT [facility] Creatinine 1.37(H) 0.57 - 1.11 mg/dL 05/16/2023 8:55 AM CDT [facility] eGFR by CKD-EPI 42(L) >=90 mL/min/1.7 3 m2 05/16/2023 8:55 AM CDT [facility] Blood BLOOD SPECIMEN / Unknown Venipuncture / Unknown 05/16/2023 8:31 AM CDT 05/16/2023 8:38 AM CDT Chan Sarkar MD LAB - CHEMISTRY [facility] Organization Address City/State/ZIP Co de Phone Number [facility] [address] [place] [address] from Last 3 Months or Most Recently Relevant to Health Maintenance Advance Directives * Full Code (Latest Code Status on File) Date Activated Date Inactivated Comments 10/05/2022 2:55 PM 10/06/2022 3:16 PM * Full Code Date Activated Date Inactivated Comments 01/06/2014 10:09 PM 01/10/2014 2:39 PM Care Teams Ladle Operator Relationship Specialty Start Date End Date Noé Lew MD [address] [place] [address] PCP - General Internal Medicine 07/04/24 Janny Torres MD [address] [place] [address] [address] [place] [phone] Physician Urology 05/07/24
--- OUTSIDE RECORDS SUMMARY | 2024-09-16 14:59 | XMS_ITS | Encounter Summary ---
Author Organization [employer] Address [address] [place] [address] Care Team Providers Care Pst Manager Name Role Phone Martha Arriaga MD [...] on file Legal Sex Female 3:23 AM DIAMOND SETTER APPRENTICE Gender Identity Not on file Sexual Orientation Not on file documented as of this encounter Plan of Treatment Not on file documented as of this encounter Visit Diagnoses Diagnosis Contusion of knee- Primary documented in this encounter Care Teams Pst Manager Relationship Specialty Start Date End Date Martha Arriaga MD PCP - General Internal Medicine 05/10/20 documented as of this encounter
--- OUTSIDE RECORDS SUMMARY | 2024-09-16 14:59 | XMS_ITS | Encounter Summary ---
Author Organization [facility] Address [address] [place] [address] Care Team Providers Care Train Engineer Name Role Phone Martha Arriaga MD Primary Care Provid er Encounter Details Date Type Department Care Team (Latest Contact Info) Description 09/03/2002 Outpatient Historical HIS [facility] [place] [address] [facility] [place] [address] PERS HX CIRCULATORY DIS NEC (Primary Dx) Social History Tobacco Use Types Packs/Day Years Used Date Smoking Tobacco: Never Assessed Comments Unknown Sex and Gender Information Value Date Recorded Sex Assigned at Not on file Legal Sex Female 3:23 AM DISTANCE EDUCATION DIRECTOR Gender Identity Not on file Sexual Orientation Not on file documented as of this encounter Plan of Treatment Not on file documented as of this encounter Visit Diagnoses Diagnosis Personal history of other diseases of circulatory system- Primary documented in this encounter Care Teams Train Engineer Relationship Specialty Start Date End Date Martha Arriaga MD PCP - General Internal Medicine 05/10/20 documented as of this encounter
--- OUTSIDE RECORDS SUMMARY | 2024-09-16 15:00 | XMS_ITS | Encounter Summary ---
Author Organization [employer] [facility] Address [address] [place] [address] Care Team Providers Care Fountain Pen Nibs Inspector Name Role Phone Martha Arriaga MD Primary Care Provid er Encounter Details Date Type Department Care Team (Latest Contact Info) Description 07/12/2003 Outpatient Historical HIS [facility] CAPRICE Saldaña, Luis Carlos SIMMONS W MANIF NEC ADULT ([facility]) (Primary Dx) Social History Tobacco Use Types Packs/Day Years Used Date Smoking Tobacco: Never Assessed Comments Unknown Sex and Gender Information Value Date Recorded Sex Assigned at Not on file Legal Sex Female 3:23 AM PLATEN PRESS OPERATOR APPRENTICE Gender Identity Not on file Sexual Orientation Not on file documented as of this encounter Plan of Treatment Not on file documented as of this encounter Visit Diagnoses Diagnosis Type II or unspecified type diabetes mellitus with other specified manifestations, not stated as uncontrolled ([facility])- Primary Type II or unspecified type diabetes mellitus with other specified manifestations, not stated as uncontrolled documented in this encounter Care Teams Fountain Pen Nibs Inspector Relationship Specialty Start Date End Date Martha Arriaga MD PCP - General Internal Medicine 05/10/20 documented as of this encounter
--- OUTSIDE RECORDS SUMMARY | 2024-09-16 15:00 | XMS_ITS | Encounter Summary ---
Author Organization [employer] Address [address] [place] [address] Care Team Providers Care Supervisor Gear Repair Name Role Phone Martha Arriaga MD Primary [...] on file Legal Sex Female 3:23 AM PERFORATOR TYPIST Gender Identity Not on file Sexual Orientation Not on file documented as of this encounter Plan of Treatment Not on file documented as of this encounter Visit Diagnoses Diagnosis Contusion of unspecified part of trunk- Primary documented in this encounter Care Teams Supervisor Gear Repair Relationship Specialty Start Date End Date Martha Arriaga MD PCP - General Internal Medicine 05/10/20 documented as of this encounter
--- OUTSIDE RECORDS SUMMARY | 2024-09-16 15:00 | XMS_ITS | Encounter Summary ---
Author Organization [employer] Address [address] [place] [address] Care Team Providers Care Woodworking Machine Setter Name Role Phone Martha Arriaga MD Primary Care Provid er Encounter Details Date Type Department Care Team (Late st Contact Info) Description 11/15/2002 Outpatient Historical HIS [facility] Noé Lobato MD [address] [place] [address] Social History Tobacco Use Types Packs/Day Years Used Date Smoking Tobacco: Never Assessed Comments Unknown Sex and Gender Information Value Date Recorded Sex Assigned at Not on file Legal Sex Female 3:23 AM STRATEGY SPECIALIST Gender Identity Not on file Sexual Orientation Not on file documented as of this encounter Plan of Treatment Not on file documented as of this encounter Visit Diagnoses Not on filedocumented in this encounter Care Teams Woodworking Machine Setter Relationship Specialty Start Date End Date Martha Arriaga MD PCP - General Internal Medicine 05/10/20 documented as of this encounter
--- OUTSIDE RECORDS SUMMARY | 2024-09-16 15:00 | XMS_ITS | Encounter Summary ---
Author Organization [employer] Address [address] [place] [address] Care Team Providers Care Railway Signal Electrician Name Role Phone Martha Arriaga MD Primary [...] on file Legal Sex Female 3:23 AM KILN FIRER Gender Identity Not on file Sexual Orientation Not on file documented as of this encounter Plan of Treatment Not on file documented as of this encounter Visit Diagnoses Diagnosis Other chronic nonalcoholic liver disease- Primary documented in this encounter Care Teams Railway Signal Electrician Relationship Specialty Start Date End Date Martha Arriaga MD PCP - General Internal Medicine 05/10/20 documented as of this encounter
--- OUTSIDE RECORDS SUMMARY | 2024-09-16 15:00 | XMS_ITS | Encounter Summary ---
Author Organization [facility] Address [address] [place] [address] Care Team Providers Care Tool Specialist Name Role Phone Martha Arriaga MD Primary Care Provid er Encounter Details Date Type Department Care Team (Late st Contact Info) Description 09/20/1998 Outpatient Historical [facility] Internal Medicine Medical [place] [facility] [address] [facility] [address] [place] [phone] Cheikh Tsang MD [address] [facility] [address] [place], [place] [phone] Social History Tobacco Use Types Packs/Day Years Used Date Smoking Tobacco: Never Assessed Comments Unknown Sex and Gender Information Value Date Recorded Sex Assigned at Not on file Legal Sex Female 3:23 AM COMMERCIAL CREDIT HEAD Gender Identity Not on file Sexual Orientation Not on file documented as of this encounter Plan of Treatment Not on file documented as of this encounter Visit Diagnoses Not on filedocumented in this encounter Care Teams Tool Specialist Relationship Specialty Start Date End Date Martha Arriaga MD PCP - General Internal Medicine 05/10/20 documented as of this encounter
--- OUTSIDE RECORDS SUMMARY | 2024-09-16 15:00 | XMS_ITS | Encounter Summary ---
Author Organization [facility] Address [address] [place] [address] Care Team Providers Care Environmental Law Professor Name Role Phone Martha Arriaga MD Primary Care Provid er Encounter Details Date Type Department Care Team (Late st Contact Info) Description 01/04/1999 Outpatient Historical [facility] Internal Medicine Medical Portal A [facility] [address] [facility] [address] [place] [phone] Cheikh Tsang MD [address] [facility] [address] [place] [address] Social History Tobacco Use Types Packs/Day Years Used Date Smoking Tobacco: Never Assessed Comments Unknown Sex and Gender Information Value Date Recorded Sex Assigned at Not on file Legal Sex Female 3:23 AM CLEANERS Gender Identity Not on file Sexual Orientation Not on file documented as of this encounter Plan of Treatment Not on file documented as of this encounter Visit Diagnoses Not on filedocumented in this encounter Care Teams Environmental Law Professor Relationship Specialty Start Date End Date Martha Arriaga MD PCP - General Internal Medicine 05/10/20 documented as of this encounter
--- OUTSIDE RECORDS SUMMARY | 2024-09-16 15:00 | XMS_ITS | Data Portability ---
Author Organization [facility] Address [address] [place] [address] Care Team Providers Care Children'S Tutor Name Role Phone DEMETRIUS LEW Primary Care Provider [phone] Assessment Encounter Date Assessment Date Assessment LastModified [...] care instructions mammogram refuses flu refuses COVID [email or web address] Not available 06/13/2024 17:57:21 Plan of Treatment Reminders Order Date Submit Date Provider Last Modified By Organization Details Last Modified Time Details Appointments ANY 15 2024 09:15A Duke Lew MD Not available Not available Not available Lab CBC w/ auto diff 2023 024 [facility], [address], [address], [place], [address], 06/23/2024 13:12:39 urinalysi s complete, reflex culture 2023 024 [facility], [address], [address], [place], [address], 06/23/2024 13:12:30 rf (rheumato id factor), serum 2023 024 [facility], [address], [address], [place], [address], 06/23/2024 13:12:41 BRIDGER (antinucl ear antibodie s) screen, serum 2023 [facility], [address], [address], [place], [address], 06/23/2024 13:12:25 ESR (erythroc yte sedimenta tion rate), blood 2023 [facility], [address], [address], [place], [address], 06/23/2024 13:12:40 C reactive protein, QN, serum or plasma 2023 LISA QUIÑ[facility]VI[facility], [address], [address], [place], [address], 06/23/2024 13:12:42 T3, free, serum or plasma 2023 024 [facility], [address], [address], [place], [address], 06/23/2024 13:12:44 T4, free, serum 2023 [facility], [address], [address], [place], [address], 06/23/2024 13:12:46 TSH, ultra-sen sitive, serum 2023 [facility], [address], [address], [place], [address], 06/23/2024 13:12:36 vitamin D, 25-hydrox y, total, serum 2023 024 [facility], [address], [address], [place], [address], 06/23/2024 13:12:47 lipid panel, serum 2023 024 [facility], [address], [address], [place], [address], 06/23/2024 13:12:27 CMP, serum or plasma 2023 024 [facility], [address], [address], [place], [address], 06/23/2024 13:12:28 factor V mutation, blood or tissue 2023 024 [facility], [address], [place], [address], 06/23/2024 13:12:32 protein S Ag, total + free, plasma 2023 024 [facility], [address], [address], [place], [address], 06/15/2024 15:10:24 protein C Ag, total, plasma 2023 024 [facility], [address], [address], [place], [address], 06/14/2024 17:07:43 antiphosp holipid antibody panel, serum 2023 024 [facility], [address], [address], [place], [address], 06/23/2024 13:12:26 homocyste ine, moles/vol ume, serum 2023 024 [facility], [address], [place], [address], 06/23/2024 13:12:33 antithrom bin activity, plasma 2023 024 [facility], [address], [place], [address], 06/15/2024 06:07:57 HbA1c (hemoglob in A1c), blood 2023 024 [facility], [address] [facility] [address] [facility], [address], [place], [address], 06/23/2024 13:12:35 insulin, serum 2023 024 [facility], [address], [address], [place], [address], 06/23/2024 13:12:38 noninvasi ve colorecta l cancer DNA + occult blood screening , QL, stool 2023 024 [facility] [address], [address], [place], [address], 07/24/2024 01:04:44 vitamin B12 + folate, serum or blood 2023 024 [facility], [address] [place] [address], [address], [place], [address], 06/23/2024 13:12:34 Referral None recorded. Procedures None recorded. Surgeries None recorded. Imaging MAMMO, screening , digital, bilateral 2023 024 [email or web address], [address], [address], [place], [address], 09/08/2024 09:58:32 CT, abdomen + pelvis, w/ contrast [email or web address] [address] [place], [address], 07/15/2024 11:52:15 Medication Orders None recorded. Patient TargetsNo targets recorded. Patient Instructions Encounter Date Encounter Id Patient Instructions Last Modified By Organization Details Last Modified Time 06/12/2024 [id number] A healthy lifestyle: care instructions [email or web address] Not available 06/12/2024 11:59:03 Reason for Referral None Reported. Results Created Date Observation Date Name Description Value Unit Range Abnormal Flag Note LastModifiedBy Organization Detail LastModifiedTime 06/12/2006/14/2024 PROTE IN C ANTIG EN protein C antigen 116 % 60-150 Not Available [facility] ([facility]) [address] [facility], [place], [address], 06/14/2024 17:07:43 06/12/2006/14/2024 ANTIT HROMB IN ACTIV ITY antithrombin activity 117 % 75-135 Direc t Xa inhib itor antic oagul ants such as rivar oxaba n, apixa ban and edoxa ban will lead to spuri ously eleva eduardo antit hromb in activ ity level s possi yessenia maski ng a defic iency . Not Available [facility] ([facility]) [address] [facility], [place], [address], 06/15/2024 06:07:57 06/12/2006/15/2024 PROTE IN S PANEL protein S, total 111 % 60-150 This test was devel renee and its perfo rmanc e syeda cteri stics deter mined by [facility]. It has not been clear ed or appro shannon by the Food and Drug Admin istra tion. Not Available [facility] ([facility]) [address] [facility], [place], [address], 06/15/2024 15:10:24 06/12/20 24 06/15/2024 PROTE IN S PANEL protein S, free 106 % 61-136 Not Available [facility] ([facility]) [address] [facility], [place], [address], 06/15/2024 15:10:24 06/12/20 24 06/15/2024 PROTE IN [...] clini gretchen scena kennedy. Not Available [facility] ([facility]) [address] [facility], [place], [address], 06/15/2024 15:10:24 06/12/20 24 06/15/2024 MAGNUS+C 3+C4+ DNA/D S+ANT ICH+C EN... anti-DNA (ds) Ab qn <1 IU/mL 0-9 Negat min <5 Equiv ocal 5 - 9 Posit min >9 Not Available [facility] ([facility]) [address] [facility], [place], [address], 06/23/2024 13:12:24 06/12/20 24 06/15/2024 MAGNUS+C 3+C4+ DNA/D S+ANT ICH+C EN... conditioning coach antibodies 1.0 ai 0.0-0. 9 above high normal Not Available [facility] ([facility]) [address] [facility], [place], [address], 06/23/2024 13:12:24 06/12/20 24 06/15/2024 MAGNUS+C 3+C4+ DNA/D S+ANT ICH+C EN... szymanski antibodies <0.2 ai 0.0-0. 9 Not Available [facility] ([facility]) [address] [facility], [place], [address], 06/23/2024 13:12:24 06/12/20 24 06/15/2024 MAGNUS+C 3+C4+ DNA/D S+ANT ICH+C EN... antisclerode rma-70 antibodies <0.2 Not Available [facility] ([facility]) [address] [place], [address], 06/23/2024 13:12:24 11/01/06/15/2024 MAGNUS+C 3+C4+ DNA/D S+ANT ICH+C EN... sjogren's anti-ss-A <0.2 Not Available [facility] ([facility]) [address] [facility], [place], [address], 06/23/2024 13:12:24 06/12/20 24 06/15/2024 MAGNUS+C 3+C4+ DNA/D S+ANT ICH+C EN... sjogren's anti-ss-B <0.2 Not Available [facility] ([facility]) [address] [facility], [place], [address], 06/23/2024 13:12:24 06/12/20 24 06/15/2024 MAGNUS+C 3+C4+ DNA/D S+ANT ICH+C EN... antichromati n antibodies <0.2 Not Available [facility] ([facility]) [address] [facility], [place], [address], 06/23/2024 13:12:24 06/12/20 24 06/15/2024 MAGNUS+C 3+C4+ DNA/D S+ANT ICH+C EN... anti-hellen-1 <0.2 Not Available [facility] ([facility]) [address] [place], [address], 06/23/2024 13:12:24 06/12/20 24 06/15/2024 MAGNUS+C 3+C4+ DNA/D S+ANT ICH+C EN... anti-centrom ere B antibodies <0.2 Not Available [facility] ([facility]) [address] [place], [address], 06/23/2024 13:12:24 06/12/20 24 06/15/2024 MAGNUS+C 3+C4+ [...] ----- ----- ----- ----- --- ----- ---- SOCIAL SCIENCES CHAIR Mixed Conne ctive Tissu e Disea se 95% (U1 nRNP, SLE 30 - 50% anti- ribon ucleo prote in) Polym yosit is and/o r [place] tomyo sitis 20% ----- ----- ----- ----- - ----- ----- ----- ----- ---- ----- ---- Scl-7 0 (anti DNA Scler oderm a (diff use) 20 - 35% topoi alea ase) Crest 13% ----- ----- ----- ----- - ----- ----- ----- ----- ---- ----- ---- Hellen-1 Polym yosit is and/o r [place] tomyo sitis 20 - 40% ----- ----- ----- ----- - ----- ----- ----- ----- ---- ----- ---- Centr omere B Scler oderm a - Crest varia nt 80% Not Available [facility] ([facility]) [address] [place], [address], 06/23/2024 13:12:24 06/12/20 24 06/16/2024 MAGNUS+C 3+C4+ DNA/D S+ANT ICH+C EN... complement C3, serum 225 mg/dL 82-167 above high normal Not Available [facility] ([facility]) [address] [place], [address], 06/23/2024 13:12:24 06/12/20 24 06/16/2024 MAGNUS+C 3+C4+ DNA/D S+ANT ICH+C EN... complement C4, serum 22 mg/dL 12-38 Not Available [facility] ([facility]) [address] [facility], [place], [address], 06/23/2024 13:12:24 06/12/20 24 06/15/2024 BRIDGER BRIDGER direct POSITI VE negati ve abnormal Not Available [facility] ([facility]) [address] [facility], [place], [address], 06/23/2024 13:12:25 06/12/20 24 06/12/2024 ANTIP HOSPH [...] and PS are based on oskar garay [facility] data stand ardiz ed to equiv alent [...] ----- ----- ----- ----- Not Available [facility] ([facility]) [address] [place], [address], 06/23/2024 13:12:26 06/12/2006/23/2024 ANTIP HOSPH OLIPI D ANTIB ROSETTE specimen status COMMEN T Refer ence lab repor t sent via fax. Not Available [facility] ([facility]) [address] [place], [address], 06/23/2024 13:12:26 06/12/20 24 06/13/2024 LIPID PANEL cholesterol, total 168 mg/dL 100-19 9 Not Available [facility] ([facility]) [address] [place], [address], 06/23/2024 13:12:27 06/12/20 24 06/13/2024 LIPID PANEL triglyceride s 151 mg/dL 0-149 above high normal Not Available [facility] ([facility]) [address] [place], [address], 06/23/2024 13:12:27 06/12/20 24 06/13/2024 LIPID PANEL HDL cholesterol 41 mg/dL >39 Not Available [facility] ([facility]) [address] [place], [address], 06/23/2024 13:12:27 06/12/20 24 06/13/2024 LIPID PANEL VLDL cholesterol gretchen 27 mg/dL 5-40 Not Available [facility] ([facility]) [address] [place], [address], 06/23/2024 13:12:27 06/12/20 24 06/13/2024 LIPID PANEL LDL chol calc ([facility]) 100 mg/dL 0-99 above high normal Not Available [facility] ([facility]) [address] [facility] [place], [address], 06/23/2024 13:12:27 06/12/20 24 06/13/2024 COMP. METAB OLIC PANEL (14) glucose 107 mg/dL 70-99 above high normal Not Available [facility] ([facility]) [address] [facility] [place], [address], 06/23/2024 13:12:28 06/12/20 24 06/13/2024 COMP. METAB OLIC PANEL (14) BUN 18 mg/dL 8-27 Not Available [facility] ([facility]) [address] [facility], [place], [address], 06/23/2024 13:12:28 06/12/20 24 06/13/2024 COMP. METAB OLIC PANEL (14) creatinine 1.13 mg/dL 0.57-1 .00 above high normal Not Available [facility] ([facility]) [address] [facility], [place], [address], 06/23/2024 13:12:28 06/12/20 24 06/13/2024 COMP. METAB OLIC PANEL (14) eGFR 52 mL/mi n/1.7 3 >59 below low normal Not Available [facility] ([facility]) [address] [facility] [place], [address], 06/23/2024 13:12:28 06/12/20 24 06/13/2024 COMP. METAB OLIC PANEL (14) BUN/creatini ne ratio 16 12-28 Not Available [facility] ([facility]) [address] [facility] [place], [address], 06/23/2024 13:12:28 11/01/20 24 06/13/2024 COMP. METAB OLIC PANEL (14) sodium 142 mmol/ L 134-14 4 Not Available [facility] ([facility]) [address] [facility] [place], [address], 06/23/2024 13:12:28 06/12/20 24 06/13/2024 COMP. METAB OLIC PANEL (14) potassium 4.5 mmol/ L 3.5-5. 2 Not Available [facility] ([facility]) [address] [facility] [place], [address], 06/23/2024 13:12:28 06/12/20 24 06/13/2024 COMP. METAB OLIC PANEL (14) chloride 102 mmol/ L 96-106 Not Available [facility] ([facility]) [address] [facility], [place], [address], 06/23/2024 13:12:28 06/12/20 24 06/13/2024 COMP. METAB OLIC PANEL (14) carbon dioxide, total 27 mmol/ L 20-29 Not Available [facility] ([facility]) [address] [facility] [place], [address], 06/23/2024 13:12:28 06/12/20 24 06/13/2024 COMP. METAB OLIC PANEL (14) calcium 9.2 mg/dL 8.7-10 .3 Not Available [facility] ([facility]) [address] [place], [address], 06/23/2024 13:12:28 06/12/20 24 06/13/2024 COMP. METAB OLIC PANEL (14) protein, total 7.6 g/dL 6.0-8. 5 Not Available [facility] ([facility]) [address] [facility] [place], [address], 06/23/2024 13:12:28 06/12/20 24 06/13/2024 COMP. METAB OLIC PANEL (14) albumin 4.1 g/dL 3.9-4. 9 Not Available [facility] ([facility]) [address] [facility] [place], [address], 06/23/2024 13:12:28 06/12/20 24 06/13/2024 COMP. METAB OLIC PANEL (14) globulin, total 3.5 g/dL 1.5-4. 5 Not Available [facility] ([facility]) [address] [facility] [place], [address], 06/23/2024 13:12:28 06/12/20 24 06/13/2024 COMP. METAB OLIC PANEL (14) bilirubin, total 0.7 mg/dL 0.0-1. 2 Not Available [facility] ([facility]) [address] [facility], [place], [address], 06/23/2024 13:12:28 06/12/20 24 06/13/2024 COMP. METAB OLIC PANEL (14) alkaline phosphatase 74 IU/L 44-121 Not Available [facility] ([facility]) [address] [facility] [place], [address], 06/23/2024 13:12:28 06/12/20 24 06/13/2024 COMP. METAB OLIC PANEL (14) AST (SGOT) 32 IU/L 0-40 Not Available [facility] ([facility]) [address] [facility], [place], [address], 06/23/2024 13:12:28 06/12/20 24 06/13/2024 COMP. METAB OLIC PANEL (14) ALT (SGPT) 29 IU/L 0-32 Not Available [facility] ([facility]) [address] [facility] [place], [address], 06/23/2024 13:12:28 06/12/20 24 06/13/2024 MICRO SCOPI C EXAMI NATIO N WBC >30 /hpf 0-5 abnormal Not Available [facility] ([facility]) [address] [facility], [place], [address], 06/23/2024 13:12:30 06/12/20 24 06/13/2024 MICRO SCOPI C EXAMI NATIO N RBC 0-2 /hpf 0-2 Not Available [facility] ([facility]) [address] [facility], [place], [address], 06/23/2024 13:12:30 06/12/20 24 06/13/2024 MICRO SCOPI C EXAMI NATIO N epithelial cells (non renal) 0-10 /hpf 0-10 Not Available [facility] ([facility]) [address] [facility], [place], [address], 06/23/2024 13:12:30 06/12/20 24 06/13/2024 MICRO SCOPI C EXAMI NATIO N casts None seen /lpf nonese en Not Available [facility] ([facility]) [address] [facility], [place], [address], 06/23/2024 13:12:30 06/12/20 24 06/13/2024 MICRO SCOPI C EXAMI NATIO N bacteria Many nonese en/few abnormal Not Available [facility] ([facility]) [address] [facility], [place], [address], 06/23/2024 13:12:30 06/12/20 24 06/13/2024 UA WITH CULTU RE REFLE X specific gravity 1.019 1.005- 1.030 Not Available [facility] ([facility]) [address] [facility], [place], [address], 06/23/2024 13:12:30 06/12/20 24 06/13/2024 UA WITH CULTU RE REFLE X pH 6.5 5.0-7. 5 Not Available [facility] ([facility]) [address] [facility], [place], [address], 06/23/2024 13:12:30 06/12/20 24 06/13/2024 UA WITH CULTU RE REFLE X urine-color YELLOW yellow Not Available [facility] ([facility]) [address] [facility], [place], [address], 06/23/2024 13:12:30 06/12/20 24 06/13/2024 UA WITH CULTU RE REFLE X appearance CLOUDY clear abnormal Not Available [facility] ([facility]) [address] [facility], [place], [address], 06/23/2024 13:12:30 06/12/20 24 06/13/2024 UA WITH CULTU RE REFLE X WBC esterase 2+ negati ve abnormal Not Available [facility] ([facility]) [address] [facility], [place], [address], 06/23/2024 13:12:30 06/12/20 24 06/13/2024 UA WITH CULTU RE REFLE X protein 2+ negati ve/tra ce abnormal Not Available [facility] ([facility]) [address] [facility], [place], [address], 06/23/2024 13:12:30 06/12/20 24 06/13/2024 UA WITH CULTU RE REFLE X glucose NEGATI VE negati ve Not Available [facility] ([facility]) [address] [facility], [place], [address], 06/23/2024 13:12:30 06/12/20 24 06/13/2024 UA WITH CULTU RE REFLE X ketones NEGATI VE negati ve Not Available [facility] ([facility]) [address] [place], [address], 06/23/2024 13:12:30 06/12/20 24 06/13/2024 UA WITH CULTU RE REFLE X occult blood TRACE negati ve abnormal Not Available [facility] ([facility]) [address] [place], [address], 06/23/2024 13:12:30 06/12/20 24 06/13/2024 UA WITH CULTU RE REFLE X bilirubin NEGATI VE negati ve Not Available [facility] ([facility]) [address] [facility], [place], [address], 06/23/2024 13:12:30 06/12/20 24 06/13/2024 UA WITH CULTU RE REFLE X urobilinogen ,semi-qn 1.0 mg/dL 0.2-1. 0 Not Available [facility] ([facility]) [address] [place], [address], 06/23/2024 13:12:30 06/12/20 24 06/13/2024 UA WITH CULTU RE REFLE X nitrite, urine POSITI VE negati ve abnormal Not Available [facility] ([facility]) [address] [facility], [place], [address], 06/23/2024 13:12:30 06/12/20 24 06/13/2024 UA WITH CULTU RE REFLE X microscopic examination SEE BELOW: Micro scopi c was indic ated and was perfo rmed. Not Available [facility] ([facility]) [address] [facility], [place], [address], 06/23/2024 13:12:30 06/12/20 24 06/13/2024 UA WITH CULTU RE REFLE X urinalysis reflex COMMEN T This speci men has refle xed to a Urine Cultu re. Not Available [facility] ([facility]) [address] [facility], [place], [address], 06/23/2024 13:12:30 06/12/20 24 06/19/2024 FACTO R [...] Facto r V Leide n (PMID : 91651 767). Addit ional risk facto rs inclu [...] kaela sis of the F5 gene (NM_[id number] .5) was perfo rmed by PCR ampli [...] e syeda cteri stics deter mined by [facility]. It has not been clear ed [...] 10.10 38/s4 1436- 021-0 1108- x. PMID: 39036 767. Robert SORENSEN. Facto r V Leide n Throm bophi neisha. 1998December 23 (Upda eduardo 2017Aug 15). In: Rajinder MP, Shyann russell HH, Irvin RA, et al., umang rs. GeneR cordell sebastian(R) (Inte rnet) . Gary marx ([place]): [facility]ive [facility] kenroy Gary; 1992- 2020. Avail able from: https ://ww w.ncb i.nlm .nih. gov/b ooks/ NBK13 68/ Rakan S, Saturnino luna [place], Deshawn X, Shemar B, Spect or EB, Itzel P, Cara armando CS; [facility] Labor atory Quali ty Assur ance Commi ttee. Venou s throm boemb olism labor atory testi ng (fact or V Leide n and facto r II c.*97 G>A), 2018 updat e: a techn ical stand rip of the Felicityeri radha Razo ge of Medic al [facility] [employer] [facility] [employer] ([facility] ). Pardeep Med. 2017;2 012) :1489 -1498 . doi: 10.10 38/s4 1436- 018-0 322-z . Epub 2017May 16. PMID: 39350 698. Not Available [facility] ([facility]) [address] [place], [address], 06/23/2024 13:12:32 06/12/20 24 06/19/2024 FACTO R V LEIDE N MUTAT ION reviewed by: SARAH Olivares Techn ical Trivoli nent perfo rmed at [facility] RTP Kboe shaw al Trivoli nent perfo rmed by: Labor atory Corpo ratio n of Ameri ca Holdi ngs Kvein calhoun, Ph.D. , [facility] Dire tor, Molec ular [employer]ardeep ics [address] [place] [address] Not Available [facility] ([facility]) [address] [facility], [address], 06/23/2024 13:12:32 06/12/20 24 06/13/2024 HOMOC YST(E )INE homocyst(E)i ne 13.7 umol/ L 0.0-17 .2 Not Available [facility] ([facility]) [address] [facility] [place], [address], 06/23/2024 13:12:33 06/12/20 24 06/13/2024 VITAM IN B12 AND FOLAT E vitamin B12 349 pg/mL 232-12 45 Not Available [facility] ([facility]) [address] [facility] [place], [address], 06/23/2024 13:12:34 06/12/20 24 06/13/2024 VITAM IN B12 AND FOLAT E folate (folic acid), serum 7.0 NG/mL >3.0 A serum folat e tushar ntrat ion of less than 3.1 ng/mL is consi dered to repre sent clini gretchen defic iency . Not Available [facility] ([facility]) [address] [facility], [place], [address], 06/23/2024 13:12:34 06/12/20 24 06/13/2024 HEMOG LOBIN A1C hemoglobin A1C 6.5 % 4.8-5. 6 above high normal Predi abete s: 5.7 - 6.4 Diabe bashir: >6.4 Glyce terrell contr ol for adult s with diabe bashir: <7.0 Not Available [facility] ([facility]) [address] [facility] [place], [address], 06/23/2024 13:12:35 06/12/20 24 06/13/2024 TSH TSH 0.019 uIU/m L 0.450- 4.500 below low normal Not Available [facility] ([facility]) [address] [facility] [place], [address], 06/23/2024 13:12:36 06/12/20 24 06/13/2024 INSUL IN insulin 25.3 uIU/m L 2.6-24 .9 above high normal Not Available [facility] ([facility]) [address] [facility], [place], [address], 06/23/2024 13:12:37 06/12/20 24 06/13/2024 CBC WITH DIFFE RENTI AL/PL ATELE T WBC 5.4 x10e3 /uL 3.4-10 .8 Not Available [facility] ([facility]) [address] [facility], [place], [address], 06/23/2024 13:12:39 06/12/20 24 06/13/2024 CBC WITH DIFFE RENTI AL/PL ATELE T RBC 5.30 x10e6 /uL 3.77-5 .28 above high normal Not Available [facility] ([facility]) [address] [facility], [place], [address], 06/23/2024 13:12:39 06/12/20 24 06/13/2024 CBC WITH DIFFE RENTI AL/PL ATELE T hemoglobin 14.0 g/dL 11.1-1 5.9 Not Available [facility] ([facility]) [address] [facility], [place], [address], 06/23/2024 13:12:39 06/12/20 24 06/13/2024 CBC WITH DIFFE RENTI AL/PL ATELE T hematocrit 44.1 % 34.0-4 6.6 Not Available [facility] ([facility]) [address] [place], [address], 06/23/2024 13:12:39 06/12/20 24 06/13/2024 CBC WITH DIFFE RENTI AL/PL ATELE T MCV 83 fL 79-97 Not Available [facility] ([facility]) [address] [place], [address], 06/23/2024 13:12:39 06/12/20 24 06/13/2024 CBC WITH DIFFE RENTI AL/PL ATELE T MCH 26.4 pg 26.6-3 3.0 below low normal Not Available [facility] ([facility]) [address] [facility], [place], [address], 06/23/2024 13:12:39 06/12/20 24 06/13/2024 CBC WITH DIFFE RENTI AL/PL ATELE T MCHC 31.7 g/dL 31.5-3 5.7 Not Available [facility] ([facility]) [address] [facility], [place], [address], 06/23/2024 13:12:39 06/12/20 24 06/13/2024 CBC WITH DIFFE RENTI AL/PL ATELE T RDW 14.6 % 11.7-1 5.4 Not Available [facility] ([facility]) [address] [facility], [place], [address], 06/23/2024 13:12:39 06/12/20 24 06/13/2024 CBC WITH DIFFE RENTI AL/PL ATELE T platelets 186 x10e3 /uL 150-45 0 Not Available [facility] ([facility]) [address] [facility], [place], [address], 06/23/2024 13:12:39 06/12/20 24 06/13/2024 CBC WITH DIFFE RENTI AL/PL ATELE T neutrophils 58 % notest ab. Not Available [facility] ([facility]) [address] [place], [address], 06/23/2024 13:12:39 06/12/20 24 06/13/2024 CBC WITH DIFFE RENTI AL/PL ATELE T lymphs 32 % notest ab. Not Available [facility] ([facility]) [address] [place], [address], 06/23/2024 13:12:39 06/12/20 24 06/13/2024 CBC WITH DIFFE RENTI AL/PL ATELE T monocytes 7 % notest ab. Not Available [facility] ([facility]) [address] [facility], [place], [address], 06/23/2024 13:12:39 06/12/20 24 06/13/2024 CBC WITH DIFFE RENTI AL/PL ATELE T eos 2 % notest ab. Not Available [facility] ([facility]) [address] [facility], [place], [address], 06/23/2024 13:12:39 06/12/20 24 06/13/2024 CBC WITH DIFFE RENTI AL/PL ATELE T basos 1 % notest ab. Not Available [facility] ([facility]) [address] [facility], [place], [address], 06/23/2024 13:12:39 06/12/20 24 06/13/2024 CBC WITH DIFFE RENTI AL/PL ATELE T neutrophils (absolute) 3.1 x10e3 /uL 1.4-7. 0 Not Available [facility] ([facility]) [address] [facility], [place], [address], 06/23/2024 13:12:39 06/12/20 24 06/13/2024 CBC WITH DIFFE RENTI AL/PL ATELE T lymphs (absolute) 1.7 x10e3 /uL 0.7-3. 1 Not Available [facility] ([facility]) [address] [facility], [place], [address], 06/23/2024 13:12:39 06/12/20 24 06/13/2024 CBC WITH DIFFE RENTI AL/PL ATELE T monocytes(ab solute) 0.4 x10e3 /uL 0.1-0. 9 Not Available [facility] ([facility]) [address] [facility], [place], [address], 06/23/2024 13:12:39 06/12/20 24 06/13/2024 CBC WITH DIFFE RENTI AL/PL ATELE T eos (absolute) 0.1 x10e3 /uL 0.0-0. 4 Not Available [facility] ([facility]) [address] [facility] [place], [address], 06/23/2024 13:12:39 06/12/20 24 06/13/2024 CBC WITH DIFFE RENTI AL/PL ATELE T baso (absolute) 0.0 x10e3 /uL 0.0-0. 2 Not Available [facility] ([facility]) [address] [facility] [place], [address], 06/23/2024 13:12:39 06/12/20 24 06/13/2024 CBC WITH DIFFE RENTI AL/PL ATELE T immature granulocytes 0 % notest ab. Not Available [facility] ([facility]) [address] [facility], [place], [address], 06/23/2024 13:12:39 06/12/20 24 06/13/2024 CBC WITH DIFFE RENTI AL/PL ATELE T immature grans (abs) 0.0 x10e3 /uL 0.0-0. 1 Not Available [facility] ([facility]) [address] [facility], [place], [address], 06/23/2024 13:12:39 06/12/20 24 06/13/2024 SEDIM ENTAT ION RATE- WESTE RGREN sedimentatio n rate-westerg andrey 48 mm/HR 0-40 above high normal Not Available [facility] ([facility]) [address] [facility] [place], [address], 06/23/2024 13:12:40 06/12/20 24 06/13/2024 RHEUM ATOID FACTO R (RF) rheumatoid factor (rf) <10.0 IU/mL <14.0 Not Available [facility] ([facility]) [address] [facility] [place], [address], 06/23/2024 13:12:41 06/12/20 24 06/13/2024 C-ZOEY CTIVE PROTE IN, QUANT C-reactive protein, quant 21 mg/L 0-10 above high normal Not Available [facility] ([facility]) [address] [place], [address], 06/23/2024 13:12:42 06/12/20 24 06/16/2024 URINE CULTU RE, ROUTI NE urine culture, routine Final report abnormal Not Available [facility] ([facility]) [address] [facility], [place], [address], 06/23/2024 13:12:44 06/12/20 24 06/16/2024 URINE CULTU [...] ng units per mL Not Available [facility] ([facility]) [address] [facility], [place], [address], 06/23/2024 13:12:44 06/12/20 24 06/16/2024 URINE CULTU [...] thopr im/Villalobos lfa S Not Available [facility] ([facility]) [address] [place], [address], 06/23/2024 13:12:44 06/12/20 24 06/13/2024 TRIIO DOTHY CELESTINE E (T3), FREE triiodothyro nine (T3), free 3.5 pg/mL 2.0-4. 4 Not Available [facility] ([facility]) [address] [facility], [place], [address], 06/23/2024 13:12:44 06/12/20 24 06/13/2024 T4,FR EE(DI RECT) T4,free(dire ct) 1.41 NG/dL 0.82-1 .77 Not Available [facility] ([facility]) [address] [place], [address], 06/23/2024 13:12:46 06/12/20 24 06/13/2024 VITAM IN [...] Erica jasmine [place]: The [facility] Press . 2. Nnamdi johnston MF, Deniz villegas [place], Abilio off-F angel SANCHEZ, et al. Evalu ation , treat ment, and preve ntion of vitam in D defic iency : an Endoc rine Socie ty clini gretchen pract ice guide line. JCEM. 2010; 96(7) :1911 -30. Not Available [facility] ([facility]) [address], [place], [address], 06/23/2024 13:12:47 07/17/20 24 07/17/2024 COLOG UARD [...] of 10,00 0 [facility] risk for color ectal cance r [...] asymp tomat ic indiv [facility]ual s [facility] risk for color ectal cance r. [...] 112:1 016-1 030. TEST DESCR IPTIO N: [place] site algor ithmi c kaela sis of [...] years or older , who are at [facility] for color ectal cance r (CRC) . Colog uard has been appro shannon for use by the [place] FDA. The perfo rmanc e of Colog uard was estab lishe d in a cross secti onal study of [facility] adult s aged 50-84 . Colog [...] study of 0 [facility]ual [facility] at [facility] risk for color ectal cance r [...] at www.c teriu rip.c om. Not Available [facility] (Cologuard Orders Only) [address], [place], [address], 07/24/2024 01:04:44 09/08/19 25 09/08/2024 US, thyro id No observ ation record ed. [facility] [address], [place], [address], 09/09/2024 11:58:44 Result Notes None recorded. Problems Name Problem SNOMED Code Status Onset Date Resolution Date Notes Provider Name and Address Organization Details Recorded Time Body mass index 40+ - severely obese 207665148 Active 2023 FREDDY [place]ques, [place] - [facility] 4 11:02:32 Morbid obesity 069905797 Active 2023 FREDDY [place] [facility] 4 11:02:33 Joint pain 52849677 Active 2023 FR[place] [facility] 4 11:02:34 Non-alcoho lic fatty liver 974701250 Active 2023 FR[place] [facility] 4 11:02:34 Vitamin D deficiency 90896650 Active 2023 FREDDY [place] [facility] 4 11:02:35 Gastroesop hageal reflux disease without esophagiti s 255003199 Active 2023 FREDDY [place] [facility] 4 11:02:40 Serum vitamin B12 below reference range 687546866 Active 2023 FREDDY [place] [facility] 4 11:02:41 History of deep vein thrombosis 067795788 Active 2023 x3 according to patient never recommende d to be on chronic anticoagul ation saw hematologi st in past Demetrius Lew MD Attn: Puma osborne,[address] [place], [address], [place] - [facility] 4 17:58:06 Screening for malignant neoplasm of colon Active 2023 FREDDY [place] [facility] 4 11:04:36 Screening mammograph y Active 2023 FR[place] [facility] 4 11:04:37 Polycystic ovary syndrome 148076397 Active 2023 FR[place] [facility] 4 11:12:48 Thyroid nodule 211872705 Active 2024 FREDDY [place] [facility] 11:59:02 Problem Notes None recorded. Procedures Surgical History Date Name Laterality Status Provider Name and Address Organization Details Recorded Time 08/12/19 10 Gastrointestinal Surgery completed [facility], [facility] 06/12/2024 10:42:50 08/12/19 10 Hernia Repair completed [facility], [facility] 06/12/2024 10:43:20 08/12/18 99 Hernia Repair completed [facility], [facility] 06/12/2024 10:43:16 08/12/18 86 Gastric Bypass completed [facility], [facility] 06/12/2024 10:41:25 08/12/18 76 Cholecystectomy completed [facility], [facility] 06/12/2024 10:41:03 08/12/18 76 Gastrointestinal Surgery completed [facility], [facility] 06/12/2024 10:42:44 08/12/18 63 Tonsillectomy completed [facility], [facility] 06/12/2024 10:48:49 08/12/18 60 Tonsillectomy completed [facility], [facility] 06/12/2024 10:44:21 Imaging Results Imaging Date Name Status LastModified by Organiz ation Details LastModified Time 09/08/2024 US, thyroid completed [facility] [address] [facility] [address], [place], [address], 09/09/2024 11:58:44 Procedure Notes None recorded. Medical Equipment None Reported. Allergies Allergen ID Allergen Name Allergen Category Reaction Reaction Severity Criticality Documentation Date Start Date Code Code System Note Provider Name and Address Organization Details Recorded Time 498312 Demerol medicatio n Not available Not available Not available 06/12/2024 64827 1 RxNorm Not Available Not Available Not Available 087913 shellfish derived food,medi cation Not available Not available Not available 06/12/2024 47465 UNK Not Available Not Available Not Available 488221 Naprosyn medicatio n Not available Not available Not available 06/12/2024 12852 2 RxNorm Not Available Not Available Not Available 634824 codeine medicatio n Not available Not available Not available 06/12/2024 2670 RxNorm Not Available Not Available Not Available 253969 Robaxin medicatio n Not available Not available Not available 06/12/2024 95105 5 RxNorm Not Available Not Available Not Available 270857 erythromy eitan medicatio n Not available Not available Not available 06/12/2024 4053 RxNorm Not Available Not Available Not Available 469167 latex environme nt,medica tion Not available Not available Not available 06/12/2024 65973 91 RxNorm Not Available Not Available Not [...] t Available Vitals Date Recorded Body height Body mass index (BMI) Body weight Heart rate Oxygen saturation Oxygen saturation in Arterial blood by Pulse oximetry Systolic blood pressure Diastolic blood pressure Provider Name and Address Organization Details Last Updated DateTime 4 165.1 cm 53.8 kg/m2 466659. 13 g 88 /min 95 % 95 % 130 mm[Hg] 88 mm[Hg] Yanci Virgen MA [facility] 10:15:51 Social History Question Answer Notes LastModified by Posh Eyes[employer] ion Details LastModified Time Tobacco Smoking Status Former Smoker FREDDY [place]gu[place], [place] - [facility] 06/12/2024 10:18:40 Do You Have An Advance [...] available 2023 10:36:25 Medical History Condition Response Anxiety Disorder Y High Blood Pressure Y Acid Reflux (GERD) Y Kidney or Bladder Problems Y Thyroid Problems Y Allergies Y Blood Clots Y Depression Y Anemia Y High Cholesterol Y Liver Disease Y Gynecological HistoryNo gynecological history recorded. Obstetrics History GPAL:G 0 P 0 0 0 0 Past Encounters Encounter ID Performer Location Encounter Start Date Encounter Closed Date Diagnosis/Indication Diagnosis SNOMED-CT Code Diagnosis ICD10 Code Diagnosis Note [id number] Demetrius Lew MD [facility] (Adult Med) [address] [place] [address] 06/12/2024 09:48:33 06/12/2024 11:00:39 Body mass index 40+ - severely obese 829522647 Z68.43 Morbid obesity 239005203 E66.01 Joint pain 35321654 M25. 50 Non-alcoho lic fatty liver 503397111 K76.0 Vitamin D deficiency 347 68414 E55.9 Serum alondra min B12 below reference range 425058847 R79.89 Gastroesop hageal reflux disease without esophagitis 177734291 K21.9 Screening mammography 24 096682 Z12.31 Screening for malignant neoplasm of colon 926375897 Z12.11 History of deep vein thrombosis 373859685 Z86.718 Polycystic ovary syndrome 036694681 E28.2 Screening for cardiovascular system disease 507049557 Z13.6 Long-term drug therapy 858381443 Z79.891 Fatigue 58979305 R53.83 Abdominal pain 01095953 R10.9 Influenza vaccination declined 868580258 Z28.21 SARS-CoV-2 vaccination declined 2767720593 Z28.21 Health Concerns Section Related Observation LastModified by Organization Detai ls LastModified Time None Recorded Concern Status LastModified by Organization Details LastModified Time None Recorded Advance Directives Directive N: Payers Encounter Date Sequence Insurance Name Policy Number Policy Durbin Covered Member ID Durbin Member ID Guarantor Name 06/12/2024 1 [employer] [facility] HEALTH - PREMIER PLAN - DUAL (MEDICARE - MEDICAID REPLACEMENT HMO) Ally Ayala [id number] Ally Lucy Notes Date Note Type Note Provider Name [...] with. Demetrius Lew MD Attn: Accounting,[address] [facility], [place], [address], [facility] - [facility] 06/13/2024 17:59:15 OBGyn Episode No OBEpisode recorded.
--- OUTSIDE RECORDS SUMMARY | 2024-09-16 15:00 | XMS_ITS | Encounter Summary ---
Author Organization [facility] Address [address] [place] [address] Care Team Providers Care Broomcorn Grader Name Role Phone Martha Arriaga MD Primary Care Provid er Encounter Details Date Type Department Care Team (Late st Contact Info) Description 05/15/2004 Outpatient Historical [facility] Internal Medicine - [place] [address] [place] [phone] [place]awn Saldaña [place] [address] [place] [phone] Social History Tobacco Use Types Packs/Day Years Used Date Smoking Tobacco: Never Assessed Comments Unknown Sex and Gender Information Value Date Recorded Sex Assigned at Not on file Legal Sex Female 3:23 AM GLASS WASHER AND CARRIER Gender Identity Not on file Sexual Orientation [...] on filedocumented in this encounter Care Teams Broomcorn Grader Relationship Specialty Start Date End Date Martha Arriaga MD PCP - General Internal Medicine 05/10/20 documented as of this encounter
--- OUTSIDE RECORDS SUMMARY | 2024-09-16 15:00 | XMS_ITS | Encounter Summary ---
Author Organization [facility] Address [address] [place] [address] Care Team Providers Care Observer Helper Name Role Phone Martha Arriaga MD Primary Care Provid er Encounter Details Date Type Department Care Team (Late st Contact Info) Description 06/16/2004 Outpatient Historical [facility] [address] [place] [address] Khris Simeon MD [address] [place] [address] Social History Tobacco Use Types Packs/Day Years Used Date Smoking Tobacco: Never Assessed Comments Unknown Sex and Gender Information Value Date Recorded Sex Assigned at Not on file Legal Sex Female 3:23 AM MEDICAL RECORDS MANAGER Gender Identity Not on file Sexual Orientation Not on file documented as of this encounter Plan of Treatment Not on file documented as of this encounter Visit Diagnoses Not on filedocumented in this encounter Care Teams Observer Helper Relationship Specialty Start Date End Date Martha Arriaga MD PCP - General Internal Medicine 05/10/20 documented as of this encounter
--- OUTSIDE RECORDS SUMMARY | 2024-09-16 15:00 | XMS_ITS | Encounter Summary ---
Author Organization [facility] Address [address] [place] [address] Care Team Providers Care Potato Pancake Frier Name Role Phone Martha Arriaga MD Primary Care Provid er Encounter Details Date Type Department Care Team (Latest Contact Info) Description 06/16/2004 Outpatient Historical [facility] - [facility] [address] [place] [address] Luis Carlos Saldaña OPEN WOUND KNEE/LEG-COMPL (Primary Dx) Social History Tobacco Use Types Packs/Day Years Used Date Smoking Tobacco: Never Assessed Comments Unknown Sex and Gender Information Value Date Recorded Sex Assigned at Not on file Legal Sex Female 3:23 AM ACCESSIBILITY LIFT TECHNICIAN Gender Identity Not on file Sexual Orientation Not on file documented as of this encounter Plan of Treatment Not on file documented as of this encounter Visit Diagnoses Diagnosis Open wound of knee, leg (except thigh), and ankle, complicated- Primary documented in this encounter Care Teams Potato Pancake Frier Relationship Specialty Start Date End Date Martha Arriaga MD PCP - General Internal Medicine 05/10/20 documented as of this encounter
--- OUTSIDE RECORDS SUMMARY | 2024-09-16 15:00 | XMS_ITS | Encounter Summary ---
Author Organization [facility] Address [address] [place] [address] Care Team Providers Care Farmworker Diversified Crops Name Role Phone Martha Arriaga MD Primary Care Provid er Encounter Details Date Type Department Care Team (Late st Contact Info) Description 03/20/2001 Outpatient Historical [facility] Internal Medicine Medical [place] A [facility] [address] [place] [phone] Cheikh Tsang MD [address] [facility] [address] [place], [place] [phone] Social History Tobacco Use Types Packs/Day Years Used Date Smoking Tobacco: Never Assessed Comments Unknown Sex and Gender Information Value Date Recorded Sex Assigned at Not on file Legal Sex Female 3:23 AM ROOM DESIGNER Gender Identity Not on file Sexual Orientation Not on file documented as of this encounter Plan of Treatment Not on file documented as of this encounter Visit Diagnoses Not on filedocumented in this encounter Care Teams Farmworker Diversified Crops Relationship Specialty Start Date End Date Martha Arriaga MD PCP - General Internal Medicine 05/10/20 documented as of this encounter
--- OUTSIDE RECORDS SUMMARY | 2024-09-16 15:00 | XMS_ITS | Encounter Summary ---
Author Organization [employer] [facility] Address [address] [place] [address] Care Team Providers Care Wall And Floor Tiler Name Role Phone Martha Arriaga MD Primary Care Provid er Encounter Details Date Type Department Care Team (Late st Contact Info) Description 11/01/2003 [facility] Social History Tobacco Use Types Packs/Day Years Used Date Smoking Tobacco: Never Assessed Comments Unknown Sex and Gender Information Value Date Recorded Sex Assigned at Not on file Legal Sex Female 3:23 AM DIRECTOR TREASURER Gender Identity Not on file Sexual Orientation Not on file documented as of this encounter Plan of Treatment Not on file documented as of this encounter Visit Diagnoses Not on filedocumented in this encounter Care Teams Wall And Floor Tiler Relationship Specialty Start Date End Date Martha Arriaga MD PCP - General Internal Medicine 05/10/20 documented as of this encounter
--- OUTSIDE RECORDS SUMMARY | 2024-09-16 15:00 | XMS_ITS | Encounter Summary ---
Author Organization [facility] Address [address] [place] [address] Care Team Providers Care Test Preparer Name Role Phone Martha Arriaga MD Primary Care Provid er Encounter Details Date Type Department Care Team (Latest Contact Info) Description 01/10/1999 Outpatient Historical [facility] Cheikh Ortiz MD [facility] [address] [place] [address] Depressive disorder, not elsewhere classified (Primary Dx) Social History Tobacco Use Types Packs/Day Years Used Date Smoking Tobacco: Never Assessed Comments Unknown Sex and Gender Information Value Date Recorded Sex Assigned at Not on file Legal Sex Female 3:23 AM HONING MACHINE OPERATOR PRODUCTION Gender Identity Not on file Sexual Orientation Not on file documented as of this encounter Plan of Treatment Not on file documented as of this encounter Visit Diagnoses Diagnosis Depressive disorder, not elsewhere classified- Primary documented in this encounter Care Teams Test Preparer Relationship Specialty Start Date End Date Martha Arriaga MD PCP - General Internal Medicine 05/10/20 documented as of this encounter
--- OUTSIDE RECORDS SUMMARY | 2024-09-16 15:00 | XMS_ITS | Encounter Summary ---
Author Organization [facility] Address [address] [place] [address] Care Team Providers Care Production Engineer Track Name Role Phone Martha Arriaga MD Primary Care Provid er Encounter Details Date Type Department Care Team (Late st Contact Info) Description 07/03/[address] [facility] Internal Medicine Medical [place] A [facility] [address] [facility] [address] [place] [address] Cheikh Tsang MD [address] [facility] [address] [place], [place] [phone] Social History Tobacco Use Types Packs/Day Years Used Date Smoking Tobacco: Never Assessed Comments Unknown Sex and Gender Information Value Date Recorded Sex Assigned at Not on file Legal Sex Female 3:23 AM TRUCK DRIVER SALESPERSON Gender Identity Not on file Sexual Orientation Not on file documented as of this encounter Plan of Treatment Not on file documented as of this encounter Visit Diagnoses Not on filedocumented in this encounter Care Teams Production Engineer Track Relationship Specialty Start Date End Date Martha Arriaga MD PCP - General Internal Medicine 05/10/20 documented as of this encounter
--- OUTSIDE RECORDS SUMMARY | 2024-09-16 15:00 | XMS_ITS | Encounter Summary ---
Author Organization [facility] Address [address] [place] [address] Care Team Providers Care Compressor Station Engineer Name Role Phone Martha Arriaga MD Primary Care Provid er Encounter Details Date Type Department Care Team (Latest Contact Info) Description 06/09/2004 Outpatient Historical [facility] - [facility] [address] [place] [address] Luis Carlos Saldaña OPEN WOUND KNEE/LEG-COMPL (Primary Dx) Social History Tobacco Use Types Packs/Day Years Used Date Smoking Tobacco: Never Assessed Comments Unknown Sex and Gender Information Value Date Recorded Sex Assigned at Not on file Legal Sex Female 3:23 AM GUEST SERVICES DIRECTOR Gender Identity Not on file Sexual Orientation Not on file documented as of this encounter Plan of Treatment Not on file documented as of this encounter Visit Diagnoses Diagnosis Open wound of knee, leg (except thigh), and ankle, complicated- Primary documented in this encounter Care Teams Compressor Station Engineer Relationship Specialty Start Date End Date Martha Arriaga MD PCP - General Internal Medicine 05/10/20 documented as of this encounter
--- OUTSIDE RECORDS SUMMARY | 2024-09-16 15:00 | XMS_ITS | Encounter Summary ---
Author Organization [facility] Address [address] [place] [address] Care Team Providers Care Demonstrator Sales Name Role Phone Martha Arriaga MD Primary Care Provid er Encounter Details Date Type Department Care Team (Latest Contact Info) Description 06/27/[address] [facility] - [facility] [address] [place] [address] Luis Carlos Saldaña OPEN WOUND KNEE/LEG-COMPL (Primary Dx) Social History Tobacco Use Types Packs/Day Years Used Date Smoking Tobacco: Never Assessed Comments Unknown Sex and Gender Information Value Date Recorded Sex Assigned at Not on file Legal Sex Female 3:23 AM CHENILLE MACHINE OPERATOR Gender Identity Not on file Sexual Orientation Not on file documented as of this encounter Plan of Treatment Not on file documented as of this encounter Visit Diagnoses Diagnosis Open wound of knee, leg (except thigh), and ankle, complicated- Primary documented in this encounter Care Teams Demonstrator Sales Relationship Specialty Start Date End Date Martha Arriaga MD PCP - General Internal Medicine 05/10/20 documented as of this encounter
--- OUTSIDE RECORDS SUMMARY | 2024-09-16 15:00 | XMS_ITS | Encounter Summary ---
Author Organization [facility] Address [address] [place] [address] Care Team Providers Care Studio Assistant Name Role Phone Martha Arriaga MD Primary Care Provid er Encounter Details Date Type Department Care Team (Late st Contact Info) Description 07/12/2003 Outpatient Historical [facility] Internal Medicine - [place] [address] [place] [phone] [place] Sal[place]ña [place] [address] [place] [address] Social History Tobacco Use Types Packs/Day Years Used Date Smoking Tobacco: Never Assessed Comments Unknown Sex and Gender Information Value Date Recorded Sex Assigned at Not on file Legal Sex Female 3:23 AM FORMWORK CARPENTER Gender Identity Not on file Sexual Orientation Not on file documented as of this encounter Last Filed Vital Signs Vital Sign Reading Time Taken Comments Blood Pressure 118/78 07/12/2003 11:30 AM FORMWORK CARPENTER Pulse 78 07/12/2003 11:30 AM FORMWORK CARPENTER Temperature - - Respiratory Rate - - Oxygen Saturation - - Inhaled Oxygen Concentration - - Weight 120.7 kg (266 lb) 07/12/2003 11:30 AM FORMWORK CARPENTER Height - - Body Mass Index - - documented in this encounter Plan of Treatment Not on file documented as of this encounter Visit Diagnoses Not on filedocumented in this encounter Care Teams Studio Assistant Relationship Specialty Start Date End Date Martha Arriaga MD PCP - General Internal Medicine 05/10/20 documented as of this encounter
--- OUTSIDE RECORDS SUMMARY | 2024-09-16 15:00 | XMS_ITS | Encounter Summary ---
Author Organization [employer] Address [address] [place] [address] Care Team Providers Care Manager Developmental Name Role Phone Martha Arriaga MD Primary Care Provid er Encounter Details Date Type Department Care Team (Latest Contact Info) Description 06/16/2004 Inpatient Historical HIS PATIENT IN A BED Khris Simeon MD [address] [place] [address] OTHER POSTOP INFECTION (Primary Dx) Social History Tobacco Use Types Packs/Day Years Used Date Smoking Tobacco: Never Assessed Comments Unknown Sex and Gender Information Value Date Recorded Sex Assigned at Not on file Legal Sex Female 3:23 AM PROFESSIONAL SPORTS SCOUT Gender Identity Not on file Sexual Orientation Not on file documented as of this encounter Plan of Treatment Not on file documented as of this encounter Visit Diagnoses Diagnosis Other postoperative infection- Primary documented in this encounter Care Teams Manager Developmental Relationship Specialty Start Date End Date Martha Arriaga MD PCP - General Internal Medicine 05/10/20 documented as of this encounter
--- OUTSIDE RECORDS SUMMARY | 2024-09-16 15:00 | XMS_ITS | Encounter Summary ---
Author Organization [employer] Address [address] [place] [address] Care Team Providers Care Senior Treasury Analyst Name Role Phone Martha Arriaga MD Primary Care Provid er Encounter Details Date Type Department Care Team (Late st Contact Info) Description 05/12/2004 Outpatient Historical [facility] MRI DEPT Ramon Garcia MD [address] [facility] [address] [place] [address] CONTUSION OF KNEE (Primary Dx) Social History Tobacco Use Types Packs/Day Years Used Date Smoking Tobacco: Never Assessed Comments Unknown Sex and Gender Information Value Date Recorded Sex Assigned at Not on file Legal Sex Female 3:23 AM UTILITY BAG ASSEMBLER Gender Identity Not on file Sexual Orientation Not on file documented as of this encounter Plan of Treatment Not on file documented as of this encounter Visit Diagnoses Diagnosis Contusion of knee- Primary documented in this encounter Care Teams Senior Treasury Analyst Relationship Specialty Start Date End Date Martha Arriaga MD PCP - General Internal Medicine 05/10/20 documented as of this encounter
--- OUTSIDE RECORDS SUMMARY | 2024-09-16 15:00 | XMS_ITS | Encounter Summary ---
Author Organization [facility] Address [address] [place] [address] Care Team Providers Care Hematologist Name Role Phone Martha Arriaga MD Primary Care Provid er Encounter Details Date Type Department Care Team (Latest Contact Info) Description 11/30/2002 Outpatient Historical HIS [facility] CAP[facility] Ferreira, John Wall MD NO ADDRESS ON FILE COAGULAT DEFECT NEC/NOS (Primary Dx) Social History Tobacco Use Types Packs/Day Years Used Date Smoking Tobacco: Never Assessed Comments Unknown Sex and Gender Information Value Date Recorded Sex Assigned at Not on file Legal Sex Female 3:23 AM ANALYTICAL TECH Gender Identity Not on file Sexual Orientation Not on file documented as of this encounter Plan of Treatment Not on file documented as of this encounter Visit Diagnoses Diagnosis Other and unspecified coagulation defects- Primary documented in this encounter Care Teams Hematologist Relationship Specialty Start Date End Date Martha Arriaga MD PCP - General Internal Medicine 05/10/20 documented as of this encounter
--- OUTSIDE RECORDS SUMMARY | 2024-09-16 15:00 | XMS_ITS | Encounter Summary ---
Author Organization [facility] Address [address] [place] [address] Care Team Providers Care Lost Charge Card Clerk Name Role Phone Martha Arriaga MD Primary Care Provid er Encounter Details Date Type Department Care Team ([facility] st Contact Info) Description 06/07/2004 Outpatient Historical [facility] Internal Medicine - [place] [address] [place] [phone] Lashawn Saldaña [place] [address] [place] [phone] Social History Tobacco Use Types Packs/Day Years Used Date Smoking Tobacco: Never Assessed Comments Unknown Sex and Gender Information Value Date Recorded Sex Assigned at Not on file Legal Sex Female 3:23 AM FELTING MACHINE OPERATOR HELPER Gender Identity Not on file Sexual [...] on filedocumented in this encounter Care Teams Lost Charge Card Clerk Relationship Specialty Start Date End Date Martha Arriaga MD PCP - General Internal Medicine 05/10/20 documented as of this encounter
--- OUTSIDE RECORDS SUMMARY | 2024-09-16 15:00 | XMS_ITS | Encounter Summary ---
Author Organization [facility] Address [address] [place] [address] Care Team Providers Care Healthcare Receptionist Name Role Phone Martha Arriaga MD Primary Care Provid er Encounter Details Date Type Department Care Team (Latest Contact Info) Description 07/11/2004 Outpatient Historical [facility] [address] [place] [address] Luis Carlos Saldaña OPEN WOUND KNEE/LEG-COMPL (Primary Dx) Social History Tobacco Use Types Packs/Day Years Used Date Smoking Tobacco: Never Assessed Comments Unknown Sex and Gender Information Value Date Recorded Sex Assigned at Not on file Legal Sex Female 3:23 AM CROSSING GATEMAN Gender Identity Not on file Sexual Orientation Not on file documented as of this encounter Plan of Treatment Not on file documented as of this encounter Visit Diagnoses Diagnosis Open wound of knee, leg (except thigh), and ankle, complicated- Primary documented in this encounter Care Teams Healthcare Receptionist Relationship Specialty Start Date End Date Martha Arriaga MD PCP - General Internal Medicine 05/10/20 documented as of this encounter
--- OUTSIDE RECORDS SUMMARY | 2024-09-16 15:00 | XMS_ITS | Encounter Summary ---
Author Organization [employer] Address [address] [place] [address] Care Team Providers Care Data Architect Name Role Phone Martha Arriaga MD Primary [...] on file Legal Sex Female 3:23 AM PULMONARY FUNCTION TECHNOLOGIST Gender Identity Not on file Sexual Orientation Not on file documented as of this encounter Plan of Treatment Not on file documented as of this encounter Visit Diagnoses Diagnosis Pain in limb- Primary documented in this encounter Care Teams Data Architect Relationship Specialty Start Date End Date Martha Arriaga MD PCP - General Internal Medicine 05/10/20 documented as of this encounter
--- OUTSIDE RECORDS SUMMARY | 2024-09-16 15:00 | XMS_ITS | Encounter Summary ---
Author Organization [employer] Address [address] [place] [address] Care Team Providers Care Rv Parts And Service Director Name Role Phone Martha Arriaga MD Primary Care Provid er Encounter Details Date Type Department Care Team (Latest Contact Info) Description 01/07/2000 Inpatient Historical HIS PATIENT IN A BED [facility] Incisional hernia without mention of obstruction or gangrene (Primary Dx) Social History Tobacco Use Types Packs/Day Years Used Date Smoking Tobacco: Never Assessed Comments Unknown Sex and Gender Information Value Date Recorded Sex Assigned at Not on file Legal Sex Female 3:23 AM HEEL SPRAYER Gender Identity Not on file Sexual Orientation Not on file documented as of this encounter Plan of Treatment Not on file documented as of this encounter Visit Diagnoses Diagnosis Incisional hernia without mention of obstruction or gangrene- Primary documented in this encounter Care Teams Rv Parts And Service Director Relationship Specialty Start Date End Date Martha Arriaga MD PCP - General Internal Medicine 05/10/20 documented as of this encounter
--- OUTSIDE RECORDS SUMMARY | 2024-09-16 15:00 | XMS_ITS | Encounter Summary ---
Author Organization [facility] Address [address] [place] [address] Care Team Providers Care Grinding Wheel Dresser Name Role Phone Martha Arriaga MD Primary Care Provid er Encounter Details Date Type Department Care Team (Late st Contact Info) Description 07/11/2004 Outpatient Historical [facility] - [facility] [address] [place] [address] [place] [address] [place] [address] Social History Tobacco Use Types Packs/Day Years Used Date Smoking Tobacco: Never Assessed Comments Unknown Sex and Gender Information Value Date Recorded Sex Assigned at Not on file Legal Sex Female 3:23 AM PRODUCTION QUALITY MANAGER Gender Identity Not on file Sexual Orientation Not on file documented as of this encounter Plan of Treatment Not on file documented as of this encounter Visit Diagnoses Not on filedocumented in this encounter Care Teams Grinding Wheel Dresser Relationship Specialty Start Date End Date Martha Arriaga MD PCP - General Internal Medicine 05/10/20 documented as of this encounter
--- OUTSIDE RECORDS SUMMARY | 2024-09-16 15:00 | XMS_ITS | Encounter Summary ---
Author Organization [facility] Address [address] [place] [address] Care Team Providers Care Bicycle Repairer Name Role Phone Martha Arriaga MD Primary Care Provid er Encounter Details Date Type Department Care Team (Latest Contact Info) Description 06/13/2004 Outpatient Historical HIS [facility] [place] [address] [place] [address] HEMANGIOMA NEC (Primary Dx) Social History Tobacco Use Types Packs/Day Years Used Date Smoking Tobacco: Never Assessed Comments Unknown Sex and Gender Information Value Date Recorded Sex Assigned at Not on file Legal Sex Female 3:23 AM DIRECTOR OF PEDIATRIC REHABILITATION Gender Identity Not on file Sexual Orientation Not on file documented as of this encounter Plan of Treatment Not on file documented as of this encounter Visit Diagnoses Diagnosis Hemangioma of other sites- Primary documented in this encounter Care Teams Bicycle Repairer Relationship Specialty Start Date End Date Martha Arriaga MD PCP - General Internal Medicine 05/10/20 documented as of this encounter
--- OUTSIDE RECORDS SUMMARY | 2024-09-16 15:00 | XMS_ITS | Encounter Summary ---
Author Organization [facility] Address [address] [place] [address] Care Team Providers Care Vice President Of Sales Name Role Phone Martha Arriaga MD Primary Care Provid er Encounter Details Date Type Department Care Team (Latest Contact Info) Description 06/19/2004 Outpatient Historical [facility] - [facility] [address] [place] [address] Luis Carlos Saldaña OPEN WOUND KNEE/LEG-COMPL (Primary Dx) Social History Tobacco Use Types Packs/Day Years Used Date Smoking Tobacco: Never Assessed Comments Unknown Sex and Gender Information Value Date Recorded Sex Assigned at Not on file Legal Sex Female 3:23 AM PHARMACEUTICAL PHYSICIAN Gender Identity Not on file Sexual Orientation Not on file documented as of this encounter Plan of Treatment Not on file documented as of this encounter Visit Diagnoses Diagnosis Open wound of knee, leg (except thigh), and ankle, complicated- Primary documented in this encounter Care Teams Vice President Of Sales Relationship Specialty Start Date End Date Martha Arriaga MD PCP - General Internal Medicine 05/10/20 documented as of this encounter
--- OUTSIDE RECORDS SUMMARY | 2024-09-16 15:00 | XMS_ITS | Encounter Summary ---
Author Organization [employer] Address [address] [place] [address] Care Team Providers Care Brownfield Redevelopment Specialist Name Role Phone Martha Arriaga MD Primary Care Provid er Encounter Details Date Type Department Care Team (Latest Contact Info) Description 01/06/1999 Outpatient Historical HIS CARDIOPULMONARY Cheikh Tsang MD [facility] [address] [place] [address] Pain in limb (Primary Dx) Social History Tobacco Use Types Packs/Day Years Used Date Smoking Tobacco: Never Assessed Comments Unknown Sex and Gender Information Value Date Recorded Sex Assigned at Not on file Legal Sex Female 3:23 AM LINE MOVER Gender Identity Not on file Sexual Orientation Not on file documented as of this encounter Plan of Treatment Not on file documented as of this encounter Visit Diagnoses Diagnosis Pain in limb- Primary documented in this encounter Care Teams Brownfield Redevelopment Specialist Relationship Specialty Start Date End Date Martha Arriaga MD PCP - General Internal Medicine 05/10/20 documented as of this encounter
--- OUTSIDE RECORDS SUMMARY | 2024-09-16 15:00 | XMS_ITS | Encounter Summary ---
Author Organization [facility] Address [address] [place] [address] Care Team Providers Care Entry Level Sales Consultant Name Role Phone Martha Arriaga MD Primary Care Provid er Encounter Details Date Type Department Care Team (Late st Contact Info) Description 06/09/[address] [facility] [address] [place] [address] [place] [address] [place] [address] Social History Tobacco Use Types Packs/Day Years Used Date Smoking Tobacco: Never Assessed Comments Unknown Sex and Gender Information Value Date Recorded Sex Assigned at Not on file Legal Sex Female 3:23 AM REFUELING RAMP ATTENDANT Gender Identity Not on file Sexual Orientation Not on file documented as of this encounter Plan of Treatment Not on file documented as of this encounter Visit Diagnoses Not on filedocumented in this encounter Care Teams Entry Level Sales Consultant Relationship Specialty Start Date End Date Martha Arriaga MD PCP - General Internal Medicine 05/10/20 documented as of this encounter
--- OUTSIDE RECORDS SUMMARY | 2024-09-16 15:00 | XMS_ITS | Encounter Summary ---
Author Organization [facility] Address [address] [place] [address] Care Team Providers Care Display Department Manager Name Role Phone Martha Arriaga MD Primary Care Provid er Encounter Details Date Type Department Care Team (Late st Contact Info) Description 06/19/2004 Outpatient Historical [facility] - [facility] [address] [place] [address] Elisa Doshi NO ADDRESS ON FILE Social History Tobacco Use Types Packs/Day Years Used Date Smoking Tobacco: Never Assessed Comments Unknown Sex and Gender Information Value Date Recorded Sex Assigned at Not on file Legal Sex Female 3:23 AM ACTUARY MANAGER Gender Identity Not on file Sexual Orientation Not on file documented as of this encounter Plan of Treatment Not on file documented as of this encounter Visit Diagnoses Not on filedocumented in this encounter Care Teams Display Department Manager Relationship Specialty Start Date End Date Martha Arriaga MD PCP - General Internal Medicine 05/10/20 documented as of this encounter
--- OUTSIDE RECORDS SUMMARY | 2024-09-16 15:00 | XMS_ITS | Encounter Summary ---
Author Organization [facility] Address [address] [place] [address] Care Team Providers Care Knitting Machine Mechanic Name Role Phone Martha Arriaga MD Primary Care Provid er Encounter Details Date Type Department Care Team (Late st Contact Info) Description 06/18/1998 Outpatient Historical [facility] Internal Medicine [place] [address] [place] [address] Luis Carlos [place] MD [address] [place] [address] Social History Tobacco Use Types Packs/Day Years Used Date Smoking Tobacco: Never Assessed Comments Unknown Sex and Gender Information Value Date Recorded Sex Assigned at Not on file Legal Sex Female 3:23 AM TRAFFIC ROUTING ENGINEER Gender Identity Not on file Sexual Orientation Not on file documented as of this encounter Plan of Treatment Not on file documented as of this encounter Visit Diagnoses Not on filedocumented in this encounter Care Teams Knitting Machine Mechanic Relationship Specialty Start Date End Date Martha Arriaga MD PCP - General Internal Medicine 05/10/20 documented as of this encounter
--- OUTSIDE RECORDS SUMMARY | 2024-09-16 15:00 | XMS_ITS | Encounter Summary ---
Author Organization [employer] Address [address] [place] [address] Care Team Providers Care Hardware Assembler Name Role Phone Martha Arriaga MD Primary Care Provid er Encounter Details Date Type Department Care Team (Latest Contact Info) Description 11/02/2002 Outpatient Historical HIS [facility] CAP[facility]ICE Saldaña, Luis Carlos BLOOD DISEASES NEC (Primary Dx) Social History Tobacco Use Types Packs/Day Years Used Date Smoking Tobacco: Never Assessed Comments Unknown Sex and Gender Information Value Date Recorded Sex Assigned at Not on file Legal Sex Female 3:23 AM FLIPPING MACHINE OPERATOR Gender Identity Not on file Sexual Orientation Not on file documented as of this encounter Plan of Treatment Not on file documented as of this encounter Visit Diagnoses Diagnosis Other blood disease- Primary Other specified diseases of blood and blood-forming organs documented in this encounter Care Teams Hardware Assembler Relationship Specialty Start Date End Date Martha Arriaga MD PCP - General Internal Medicine 05/10/20 documented as of this encounter
--- OUTSIDE RECORDS SUMMARY | 2024-09-16 15:01 | XMS_ITS | Encounter Summary ---
Author Organization [employer] Address [address] [place] [address] Care Team Providers Care Librarian Specialist Name Role Phone Martha Arriaga MD Primary Care Provid er Encounter Details Date Type Department Care Team (Late st Contact Info) Description 06/16/2004 Outpatient Historical [facility] ([facility]) [address] [place] [address] Luis Berkowitz MD NO ADDRESS ON FILE Social History Tobacco Use Types Packs/Day Years Used Date Smoking Tobacco: Never Assessed Comments Unknown Sex and Gender Information Value Date Recorded Sex Assigned at Not on file Legal Sex Female 3:23 AM PR INTERNSHIP Gender Identity Not on file Sexual Orientation Not on file documented as of this encounter Plan of Treatment Not on file documented as of this encounter Visit Diagnoses Not on filedocumented in this encounter Care Teams Librarian Specialist Relationship Specialty Start Date End Date Martha Arriaga MD PCP - General Internal Medicine 05/10/20 documented as of this encounter
--- OUTSIDE RECORDS SUMMARY | 2024-09-16 15:01 | XMS_ITS | Encounter Summary ---
Author Organization [facility] Address [address] [place] [address] Care Team Providers Care Nuclear Logging Engineer Name Role Phone Martha Arriaga MD Primary Care Provid er Encounter Details Date Type Department Care Team (Late st Contact Info) Description 06/16/2004 Outpatient Historical [facility] Trauma and General Surgery [address] [facility] [address] [address] [place] [address] [place] [address] Social History Tobacco Use Types Packs/Day Years Used Date Smoking Tobacco: Never Assessed Comments Unknown Sex and Gender Information Value Date Recorded Sex Assigned at Not on file Legal Sex Female 3:23 AM TIMEKEEPER SUPERVISOR Gender Identity Not on file Sexual Orientation Not on file documented as of this encounter Plan of Treatment Not on file documented as of this encounter Visit Diagnoses Not on filedocumented in this encounter Care Teams Nuclear Logging Engineer Relationship Specialty Start Date End Date Martha Arriaga MD PCP - General Internal Medicine 05/10/20 documented as of this encounter
--- OUTSIDE RECORDS SUMMARY | 2024-09-16 15:01 | XMS_ITS | Clinical Summary ---
Author Organization [facility] Address [address] [place] [address] Phone Care Team Providers Care Installer Molding And Trim Name Role Phone Noé Lew MD Primary Care Provider [phone] Allergies Active Allergy Reactions Criticality Noted Date Comments Codeine Anaphylaxis High 02/18/2003 Erythromycin Rash Medium 02/18/2003 Iodine Unknown 07/03/2022 Latex Rash Medium 06/17/2009 Contact; bandaids and condoms Lavender Oil Shortness of Breath High 07/03/2022 Warfarin Rash High 09/23/2008 Medications ergocalciferol (VITAMIN D) 61732 UNIT Capsule TAKE 1 CAPSULE WEEKLY 06/25/2024 Active Active Problems Problem Noted Date Diagnosed Date Factor V Leiden 09/02/2024 Encounters Date Type Department Care Team Description 09/09/2024 Travel 09/08/2024 Travel 09/02/2024 3:00 PM FURNITURE ASSEMBLER [facility] [address] [place] [id number] Pricila Crzu, PAC Factor V Leiden (HCC) Discharge Disposition: Discharged to home or Selfcare 09/02/2024 2:15 PM FURNITURE ASSEMBLER Initial Consult [facility] Oncology Services [address] [place] [address] Noé Lew MD Norris, Arlene [...] on file Legal Sex Female 12:58 PM FURNITURE ASSEMBLER Gender Identity Not on file Sexual Orientation Not on file Last Filed Vital Signs Vital Sign Reading Time Taken Comments Blood Pressure 156/65 09/02/2024 2:48 PM FURNITURE ASSEMBLER Pulse 77 09/02/2024 2:48 PM FURNITURE ASSEMBLER Temperature 36.7 C (98.1 F) 09/02/2024 2:48 PM FURNITURE ASSEMBLER Respiratory Rate 18 09/02/2024 2:48 PM FURNITURE ASSEMBLER Oxygen Saturation 97% 09/02/2024 2:48 PM FURNITURE ASSEMBLER Inhaled Oxygen Concentration - - Weight 148.1 kg (326 lb 9.6 oz) 09/02/2024 2:48 PM FURNITURE ASSEMBLER Height 165.1 cm (5' 5 ) 09/02/2024 2:48 PM FURNITURE ASSEMBLER Body Mass Index 54.35 09/02/2024 2:48 PM FURNITURE ASSEMBLER Plan of Treatment Upcoming Encounters Date Type Department Care Team (Late st Contact Info) Description 09/21/2024 1:45 PM FURNITURE ASSEMBLER [facility] [address] [place] [address] Pricila Cruz Krysta, PAC [address] [place] [address] Discharge Disposition: Discharged to home or Selfcare [...] LUPUS ANTICOAG PROFILE Routine 09/02/2024 3:24 PM FURNITURE ASSEMBLER Factor V Leiden (HCC) BETA-2 GPI AB IGA, IGG, IGM Routine 09/02/2024 3:24 PM FURNITURE ASSEMBLER Factor V Leiden (HCC) ANTI CARDIOLIPIN IGG, IGM & IGA Routine 09/02/2024 3:24 PM FURNITURE ASSEMBLER Factor V Leiden (HCC) PHOSPHOLIPID PANEL (ACL,B2GP,LUPAP) Routine 09/02/2024 3:24 PM FURNITURE ASSEMBLER Factor V Leiden (HCC) ANTI THROMBIN III ACTIVITY Routine 09/02/2024 3:24 PM FURNITURE ASSEMBLER Factor V Leiden (HCC) PROTEIN S ACTIVITY Routine 09/02/2024 3: 24 PM FURNITURE ASSEMBLER Factor V Leiden (HCC) PROTEIN C ACTIVITY Routine 09/02/2024 3: 24 PM FURNITURE ASSEMBLER Factor V Leiden (HCC) from Last 3 Months Results * (ABNORMAL) LUPUS ANTICOAG PROFILE (09/02/2024 3:24 PM FURNITURE ASSEMBLER) INR 1.0 0.9 - 1.2 09/04/2024 10:41 AM [facility] THROMBIN TIME 19.1(H) 15.1 - 18.5 sec 09/04/2024 10:41 AM [facility] PROTIME-PATIEN T 13.1 11.6 - 14.8 sec 09/04/2024 10:41 AM [facility] APTT-LA 33.1 30.6 - 38.8 sec 09/04/2024 10:41 AM [facility] DRVV SCREEN RATIO 1.0 <=1.2 ratio 09/04/2024 10:41 AM [facility] Blood Venipuncture / Unknown 09/02/2024 3:24 PM FURNITURE ASSEMBLER 09/02/2024 3:24 PM FURNITURE ASSEMBLER Narrative [facility] - 09/04/2024 10:41 AM FURNITURE ASSEMBLER No evidence of lupus-like anticoagulant based on results of Lupus sensitive Activated Partial Thromboplastin Time (APTT) and Dilute Alex's Viper Venom Time (DRVVT). us Pricila Cruz PAC HEMATOLOGY ORDERABLES Fin al Result Performing Organization Address City/State/[facility] Co de Phone Number [facility] [address] [place] [address], * BETA-2 GPI AB IGA, IGG, IGM (09/02/2024 3:24 PM FURNITURE ASSEMBLER) Pathologist [facility] BETA-2 GLYCOPROTEIN IGA <2.0 <20.0 APL-U/mL 09/02/2024 10:13 PM FURNITURE ASSEMBLER [facility] BETA-2 GLYCOPROTEIN IGG <1.4 <20.0 GPL-U/mL 09/02/2024 10:13 PM [facility] BETA-2 GLYCOPROTEIN IGM 1.8 <20.0 MPL-U/mL 09/02/2024 10:13 PM [facility] Blood Venipuncture / Unknown 09/02/2024 3:24 PM FURNITURE ASSEMBLER 09/02/2024 3:24 PM FURNITURE ASSEMBLER Narrative [facility] - 09/02/2024 10:13 PM FURNITURE ASSEMBLER Antibody testing was performed by multiplex flow immunoassay on the BioPlex platform. [facility] IMMUNOLOGY ORDERABLES Fin al Result Performing Organization Address City/[facility]/ZIP Co de Phone Number [facility] [address] [place] [address], [place] * ANTI CARDIOLIPIN IGG, IGM & IGA (09/02/2024 3:24 PM FURNITURE ASSEMBLER) CARDIOLIPIN IGA <2.0 <20.0 APL-U/mL 09/02/2024 10:13 PM FURNITURE ASSEMBLER [facility] CARDIOLIPIN IGG <1.6 <20.0 GPL-U/mL 09/02/2024 10:13 PM FURNITURE ASSEMBLER [facility] CARDIOLIPIN IGM 2.3 <20.0 MPL-U/mL 09/02/2024 10:13 PM FURNITURE ASSEMBLER [facility] Blood Venipuncture / Unknown 09/02/2024 3:24 PM FURNITURE ASSEMBLER 09/02/2024 3:24 PM FURNITURE ASSEMBLER Narrative [facility] - 09/02/2024 10:13 PM FURNITURE ASSEMBLER Antibody testing was performed by multiplex flow immunoassay on the BioPlex platform. [facility] IMMUNOLOGY ORDERABLES Fin al Result Performing Organization Address [facility]/ZIP Co de Phone Number [facility] [address] [place] [address], [place] * PROTEIN S ACTIVITY (09/02/2024 3:24 PM FURNITURE ASSEMBLER) PROTEIN S ACTIVITY 74.0 65 - 129 % 09/04/2024 10:11 AM FURNITURE ASSEMBLER [facility] Blood Venipuncture / Unknown 09/02/2024 3:24 PM FURNITURE ASSEMBLER 09/02/2024 3:24 PM FURNITURE ASSEMBLER [facility] HEMATOLOGY ORDERABLES Fin al Result [facility] [address] [place] [address], [place] * PROTEIN C ACTIVITY (09/02/2024 3:24 PM FURNITURE ASSEMBLER) PROTEIN C ACTIVITY 126.0 79 - 175 % 09/04/2024 10:10 AM FURNITURE ASSEMBLER [facility] Blood Venipuncture / Unknown 09/02/2024 3:24 PM FURNITURE ASSEMBLER 09/02/2024 3:24 PM FURNITURE ASSEMBLER [facility] PAC HEMATOLOGY ORDERABLES Fin al Result [facility] [address] [place] [address], [place] * ANTI THROMBIN III ACTIVITY (09/02/2024 3:24 PM FURNITURE ASSEMBLER) ANTITHROMBIN III 112 82 - 139 % 09/02/19 11:54 PM FURNITURE ASSEMBLER [facility] Blood Venipuncture / Unknown 09/02/2024 3:24 PM FURNITURE ASSEMBLER 09/02/2024 3:24 PM FURNITURE ASSEMBLER [facility] PAC HEMATOLOGY ORDERABLES Fin al Result [facility] [address] [place] [address], [place] from Last 3 Months Insurance MEDICARE C [facility] MEDICAID [place] Care Teams Installer Molding And Trim Relationship Specialty Start Date End Date Noé Lew MD [address] [place] [address] PCP - General Internal Medicine 07/01/24
== END 2024-09-16 14:01 | disposition home or self-care (01) ==
PROVIDERS: PCP Internal Medicine; Visit Provider Internal Medicine
DX: Z12.31 Encounter for screening mammogram for malignant neoplasm of breast (principal); R92.8 Other abnormal and inconclusive findings on diagnostic imaging of breast
CPT/HCPCS: 77063; 77067

== ENCOUNTER 2024-09-18 09:45 | Outpatient (CLI) | payer MEDICARE, MEDICAID, SELFPAY ==
--- NOTE | ~2024-09-18 | US_ITS ---
EXAMINATION: 1. US FNA w image guidance 2. US FNA additional DATE: 09/18/2024 10:57 (accession [id number]), 09/18/2024 11:24 (accession [id number]) INDICATION: Nontoxic thyroid nodules. TECHNIQUE: The procedure and its benefits and risks were discussed with the patient. Risks specifically discusse d included bleeding. The patient verbalized understanding of the risks and agreed to proceed. The nec k was prepped and draped in the usual sterile manner. 1% lidocaine was used for local anesthesia. 7 passes were made with a 25G needle into the lesion in right thyroid lobe under ultrasound guidance. 7 passes were made with a 25-gauge needle into the lesion in left thyroid lobe under ultrasound yamel nce. There were no immediate complications. FINDINGS: Grayscale ultrasound images demonstrate needles advanced into a 2.0 cm nodule in right thyroid lobe f or biopsy. Grayscale ultrasound images demonstrate needles advanced into a 2.7 cm nodule in left thyr oid lobe for biopsy. IMPRESSION: 1. Ultrasound-guided fine needle aspiration of a right thyroid nodule. 2. Ultrasound-guided fine-needle aspiration of a left thyroid nodule. Reviewed, dictated and finalized at location A. BLADDER MAKER IMPRESSION: 1. Ultrasound-guided fine needle aspiration of a right thyroid nodule. 2. Ultrasound-guided fine-needle aspiration of a left thyroid nodule.
--- OUTSIDE RECORDS SUMMARY | 2024-09-18 10:33 | XMS_ITS | Encounter Summary ---
Author Organization [facility] Address [address] [place] [address] Care Team Providers Care Machine Fastener Name Role Phone Martha Arriaga MD Primary Care Provid er Encounter Details Date Type Department Care Team (Latest Contact Info) Description 07/25/2004 Outpatient Historical [facility] [address] [place] [address] Luis Carlos Saldaña OPEN WOUND KNEE/LEG-COMPL (Primary Dx) Social History Tobacco Use Types Packs/Day Years Used Date Smoking Tobacco: Never Assessed Comments Unknown Sex and Gender Information Value Date Recorded Sex Assigned at Not on file Legal Sex Female 3:23 AM SERGER Gender Identity Not on file Sexual Orientation Not on file documented as of this encounter Plan of Treatment Not on file documented as of this encounter Visit Diagnoses Diagnosis Open wound of knee, leg (except thigh), and ankle, complicated- Primary documented in this encounter Care Teams Machine Fastener Relationship Specialty Start Date End Date Martha Arriaga MD PCP - General Internal Medicine 05/10/20 documented as of this encounter
--- OUTSIDE RECORDS SUMMARY | 2024-09-18 10:33 | XMS_ITS | Patient Health Summary ---
Author Organization [facility] Address [address] [place] [address] Care Team Providers Care Commercial Construction Estimator Name Role Phone Janny Torres MD Unavailable [phone] Noé Lew MD Primary Care Provider [phone] Note from [facility],non-owned Affiliates and Associated Physician Practices is amultiple site organization consisting of ambulatory clinics and hospital sitesin [place], [place] and [place]. This disclosure is being madepursuant to the Care Everywhere program and may not contain all information available regarding this patient. Last updated 18.[facility] Allergies * Codeine(Anaphylaxis) -High Criticality * Contrast-Iodinated [...] * vitamin D, ergocalciferol, (Drisdol) 1.25 MG (57296 UT) capsule(Started 06/25/2024) 1 (one) capsule every [...] Sex Assigned at Female 07/19/2022 2:59 PM STONE REPAIRER Gender Identity Female 07/19/2022 2:59 PM STONE REPAIRER Sexual Orientation Straight 07/19/2022 2: 59 PM STONE REPAIRER Travel History Travel Start Travel End [place] 09/07/2024 09/07/2024 Last Filed Vital Signs Vital Sign Reading Time Taken Comments Blood Pressure 151/94 09/07/2024 9:55 AM STONE REPAIRER Pulse 90 09/07/2024 9:55 AM STONE REPAIRER Temperature 36.6 C (97.9 F) 09/07/2024 9:55 AM STONE REPAIRER Respiratory Rate 14 05/16/2023 11:17 AM CDT Oxygen Saturation 92% 09/07/2024 9:55 AM STONE REPAIRER Inhaled Oxygen Concentration - - Weight 150.1 kg (331 lb) 09/07/2024 9:55 AM STONE REPAIRER Height 165.1 cm (5' 5 ) 09/07/2024 9:55 AM STONE REPAIRER Body Mass Index 55.08 09/07/2024 9:55 AM STONE REPAIRER Medical Devices Implanted Type Area Electrical Designer Drafter Device Identifier Shelf Expiration Date Model / Serial / Lot Stent Uret 6fr 22-30cm Pgtl Crv Tpr Tip Implanted:Qty: 1 on 10/05/2022 by Janny Torres MD at [facility] Right: [employer] [place] [employer] 06/24/2025 [id number] / / [id number] Procedures * CT ABDOMEN PELVIS W CONTRAST(Performed [...] 10/05/2022) Performed for Calculus of ureter * OK PERCUT REMV KID STONE,2+ CM(Performed 10/05/2022) * [...] 08/24/2022) * LARYNGEAL MASK AIRWAY(Performed 08/22/2022) * OK CYSTOSCOPY,REMV CALCULUS,SIMPLE(Performed 08/22/2022) Performed for N20.0 * OK FRAGMENTING OF KIDNEY STONE(Performed 08/22/2022) Performed for [...] Abdomen Pelvis W Contrast (07/04/2024 4:27 PM STONE REPAIRER) Anatomical Region Laterality Modality Abdomen, Pelvis Computed Tomogra phy 07/05/2024 9:07 AM STONE REPAIRER Impressions 07/05/2024 9:25 AM STONE REPAIRER IMPRESSION: 1.Hepatomegaly with steatosis 2.Multiple ventral hernias as described. No bowel obstruction. 3.Decreased collection within the right kidney. Follow-up ultrasound recommended. 4.Nonobstructing left renal calculi 5.Hiatal hernia 6.Right adnexal cyst 7.Cardiomegaly > Interpreting Provider: Kelton Reyna MD on 07/05/2024 9:25 AM Narrative 07/05/2024 9:[address] ABDOMEN WITH CONTRAST CT PELVIS WITH [...] CREATININE - POCT INTERFACED (07/04/2024 4:06 PM STONE REPAIRER) Creatinine POCT 0.86 0.70 - 1.20 mg/dL 07/04/2024 4:14 PM STONE REPAIRER [facility] eGFR 73(L) >=90 mL/min/1.7 3 m2 07/04/2024 4:14 PM STONE REPAIRER [facility] Blood BLOOD SPECIMEN / Unknown 07/04/2024 4:06 PM STONE REPAIRER 07/04/2024 4:14 PM STONE REPAIRER Provider Unknown LAB - POINT OF CARE ORDERABLES [facility] [address] [place] [address] * PTH INTACT (05/07/2024 12:54 PM CDT) PTH Intact 57 15 - 65 pg/mL [facility] ACCOUNT BILL 05/07/2024 12:5 4 PM CDT 05/07/2024 Narrative [facility] ACCOUNT BILL - 05/08/2024 10:11 AM CDT Performed at: 01 - [facility] [id number] Air Moving Technician: Danny Lemos PhD, Phone: [phone] Janny Torres MD LAB - CHEMISTRY OR DERABLES [facility] ACCOUNT BILL [address] [place] [address] * XR ABDOMEN KUB (05/01/2024 11:08 AM [...] was placed supine on the procedure table. Biology Teacher radiograph of the left lower quadrant was [...] was placed supine on the procedure table. Biology Teacher radiograph of the left lower quadrant was [...] the procedure well and was transferred to themercy hospitaling area in stable condition. There were [...] CDT Impression: CT-guided placement of an 8 Jordanian pigtail drainage catheter in right renal hematoma, [...] evaluation, please review the evaluation forms in [facility]. For details on monitored clinical parameters during the intra-service sedation time, please review the procedure nurse documentation in [facility]. > Interpreting Provider: Angelito Driscoll MD on 05/17/2023 4:47 PM Narrative 05/17/2023 4:47 PM CDT History: Right renal hematoma complicated by Page kidney Operators: 1.Angelito Driscoll MD Anesthesia: 1.Local anesthesia - 10 mL of 1% Lidocaine 2.Intravenous conscious sedation - Versed 2.5 mg and Fentanyl 125 mcg Procedure: 1.Limited noncontrast CT of the abdomen. 2.CT-guided placement of 8 Jordanian pigtail drainage catheter in a subcapsular right [...] was provided with 1% Lidocaine. A 5 Jordanian co-axial needle system was advanced in stages under CT guidance. Upon aspiration of fluid, the outer-sheath was advanced within the collection. A 0.035 inch guidewire was looped within the collection, and following series of dilatation/exchanges, a 8 Jordanian pigtail drainage catheter was advanced into the [...] of the abdomen. 2.CT-guided placement of 8 Jordanian pigtail drainage catheter in a subcapsular right [...] was provided with 1% Lidocaine. A 5 Jordanian co-axialneedle system was advanced in stages under CT guidance. Upon aspiration offluid, the outer-sheath was advanced within the collection. A 0.035 inchguidewire was looped within the collection, and following series of dilatation/exchanges, a 8 Jordanian pigtail drainage catheter was advanced into the [...] the procedure well and was transferred to themercy hospitaling area in stable condition. There were no immediate complicationsassociated with the procedure. Impression: CT-guided placement of an 8 Jordanian pigtail drainage catheterin right renal hematoma, as [...] evaluation, please review the evaluation forms in [facility]. For details on monitored clinical parameters during the intra-service sedation time, please review the procedure nurse documentation in [facility]. > Interpreting Provider: Angelito Driscoll MD [...] MICROBIOLOGY ORDERABLES Performing Organization Address City/[facility]/ZIP Co de Phone Number [facility] [address] [place] [address], [facility] [phone] * CULTURE FUNGUS OTHER+FUNGUS SMEAR (05/16/2023 10:49 AM CDT) Culture No fungus isolated [facility] 06/10/2023 8:16 AM CDT [facility] Fungus Stain No yeast or hyphae seen 06/10/2023 8:16 AM CDT [facility] Microbiology ENTIRE KIDNEY / Unknown Collection / Unknown 05/16/2023 10:49 AM CDT 05/16/2023 12:07 PM CDT Janny Torres MD LAB - MICROBIOLOGY ORDERABLES [facility] [address] [place] [address], [facility] [phone] * CULTURE AFB+SMEAR (05/16/2023 10:49 AM CDT) Culture No acid-fast bacillus isolated 06/24/2023 7:31 AM STONE REPAIRER [facility] AFB Smear No acid-fast bacilli seen 06/24/2023 7:31 AM STONE REPAIRER [facility] Microbiology ENTIRE KIDNEY / Unknown Collection / Unknown 05/16/2023 10:49 AM CDT 05/16/2023 12:07 PM CDT Janny Torres MD LAB - MICROBIOLOGY ORDERABLES Performing Organization Address City/[facility] Co de Phone Number [facility] [address] [place] [address], [facility] [phone] * CULTURE ANAEROBE (05/16/2023 10:49 AM CDT) Only the most recent of3 resultswithin the time period is included. Culture No anaerobic organisms isolated [place] 05/21/2023 7:48 AM CDT [facility] Microbiology ENTIRE KIDNEY / Unknown Collection / Unknown 05/16/2023 10:49 AM CDT 05/16/2023 12:07 PM CDT Janny Torres MD LAB - MICROBIOLOGY ORDERABLES Performing Organization Address [facility] de Phone Number [facility] [address] [place] [address], [facility] [phone] * PT-INR (05/16/2023 8:31 AM CDT) Only the most recent of3 resultswithin the time period is included. PT 14.0 12.1 - 14.8 sec 05/16/2023 8:51 AM CDT [facility] INR 1.1 0.9 - 1.1 05/16/2023 8:51 AM CDT [facility] Blood BLOOD SPECIMEN / Unknown Venipuncture / Unknown 05/16/2023 8:31 AM CDT 05/16/2023 8:38 AM CDT Narrative [facility] - 05/16/2023 8:51 AM CDT Conventional Warfarin Anticoagulant Therapy: INR Reference Range: 2.0-3.0 Intensive Warfarin Anticoagulant Therapy: INR Reference Range: 2.5-3.5 Chan Sarkar MD LAB - COAGULATION OR DERABLES Performing Organization Address City/[facility] Co de Phone Number [facility] [address] [address] * (ABNORMAL) CBC W AUTO DIFFERENTIAL (05/16/2023 8:31 AM CDT) Only the most recent of6 resultswithin the time period is included. WBC 6.0 4.4 - 10.7 x10E9/L 05/16/2023 8:42 AM CDT [facility] WBC Corrected 05/16/2023 8:42 AM CDT [facility] RBC 4.75 3.80 - 5.20 x10E12/L 05/16/2023 8:42 AM CDT [facility] Hemoglobin 12.4 12.0 - 15.6 gm/dL 05/16/2023 8:42 AM CDT [facility] Hematocrit 39.6 35.9 - 45.5 % 05/16/2023 8:42 AM CDT [facility] MCV 83.4 80.7 - 98.3 fl 05/16/2023 8:42 AM CDT [facility] MCH 26.1(L) 26.7 - 34.0 pg 05/16/2023 8:42 AM CDT [facility] MCHC 31.3 30.8 - 35.9 gm/dL 05/16/2023 8:42 AM CDT [facility] Platelet Count 187 153 - 416 x10E9/L 05/16/2023 8:42 AM CDT [facility] RDW-CV 14.4 12.1 - 14.9 % 05/16/2023 8:42 AM CDT [facility] MPV 11.8 9.4 - 12.9 fl 05/16/2023 8:42 AM CDT [facility] Neutrophils % 54.9 44.0 - 73.0 % 05/16/2023 8:42 AM CDT [facility] Lymphocytes % 35.3 20.0 - 43.0 % 05/16/2023 8:42 AM CDT [facility] Monocytes % 7.2 5.0 - 13.0 % 05/16/2023 8:42 AM CDT [facility] Eosinophils % 1.7 0.0 - 6.0 % 05/16/2023 8:42 AM CDT [facility] Basophils % 0.7 0.0 - 2.0 % 05/16/2023 8:42 AM CDT [facility] Immature Granulocytes 0.2 0 - 1 % 05/16/2023 8:42 AM CDT [facility] Neutrophil Absolute 3.27 2.01 - 7.14 x10E9/L 05/16/2023 8:42 AM CDT [facility] Lymphocytes Absolute 2.10 1.07 - 3.94 x10E9/L 05/16/2023 8:42 AM CDT [facility] Monocytes Absolute 0.43 0.26 - 1.07 x10E9/L 05/16/2023 8:42 AM CDT [facility] Eosinophils Absolute 0.10 0 - 0.47 x10E9/L 05/16/2023 8:42 AM CDT [facility] Basophils Absolute 0.04 0 - 0.08 x10E9/L 05/16/2023 8:42 AM CDT [facility] Immature Granulocytes Absolute 0.01 0.00 - 0.06 x10E9/L 05/16/2023 8:42 AM CDT [facility] nRBC Auto 0 /100 WBC 05/16/2023 8:42 AM [facility] Blood BLOOD SPECIMEN / Unknown Venipuncture / Unknown 05/16/2023 8:31 AM CDT 05/16/2023 8:38 AM CDT Chan Sarkar MD LAB - HEMATOLOGY ORD ERABLES [facility] [address] [place] [address] * (ABNORMAL) BASIC METABOLIC PANEL (CALCIUM TOTAL) (05/16/2023 8:31 AM CDT) Only the most recent of4 resultswithin the time period is included. Glucose 107(H) 70 - 105 mg/dL 05/16/2023 8:55 AM CDT [facility] Sodium 141 136 - 145 mmol/L 05/16/2023 8:55 AM [facility] Potassium 4.0 3.5 - 5.1 mmol/L 05/16/2023 8:55 AM CDT [facility] Chloride 102 98 - 107 mmol/L 05/16/2023 8:55 AM CDT [facility] CO2 29 22 - 29 mmol/L 05/16/2023 8:55 AM CDT [facility] Calcium 9.4 8.4 - 10.4 mg/dL 05/16/2023 8:55 AM CDT [facility] Anion Gap 10 6 - 16 mmol/L 05/16/2023 8:55 AM CDT [facility] BUN 20 7 - 26 mg/dL 05/16/2023 8:55 AM CDT [facility] Creatinine 1.37(H) 0.57 - 1.11 mg/dL 05/16/2023 8:55 AM T [facility] eGFR by CKD-EPI 42(L) >=90 mL/min/1.7 3 m2 05/16/2023 8:55 AM [facility] Blood BLOOD SPECIMEN / Unknown Venipuncture / Unknown 05/16/2023 8:31 AM CDT 05/16/2023 8:38 AM CDT Chan Sarkar MD LAB - CHEMISTRY [facility] Organization Address City/State/ZIP Co de Phone Number [facility] [address] [place] [address] * URINALYSIS AUTO - POINT OF CARE (AMB) STL (05/03/2023 10:14 AM CDT) Only the most recent of4 resultswithin the time period is included. Clarity UA POCT n/a [facility] Color UA POCT n/a [facility] Leukocyte UA 3+ Negative [facility] Nitrite UA POCT neg Negative [facility] Urobilinogen UA 0.2 0.1 - 1.[address] [facility] [address] [facility] Protein UA POCT 1+ Negative [facility] pH UA 6.0 5.0 - 8.[address] [facility] Blood UA 3+ Negative [facility] Specific [place] UA POCT 1.020 1.002 - 1.[address] [facility] Ketone UA neg Negative [facility] Bilirubin UA POCT neg Negative [facility] Glucose UA neg Negative [facility]piration Date 5 [facility] Lot # [id number] [facility] QC Verified Yes Yes [facility] Urine URINE / Unknown 05/03/2023 1 0:14 AM CDT Janny Torres MD LAB - POINT OF CAR E ORDERABLES [facility] [address] [place] [address], [facility] [phone] * CT RENAL STONE PROTOCOL (04/26/2023 3:10 [...] DATE/TIME OF EXAM: 04/26/2023 3:12 PM, LOCATION [facility] INDICATION: N20.0: Calculus of kidney. HISTORY: [...] DATE/TIME OF EXAM: 04/26/2023 3:12 PM, LOCATION [facility] INDICATION: N20.0: Calculus of kidney. HISTORY: Right [...] bladder with DICOM image capture performed by blood bank technologist. FINDINGS: Ultrasound examination of the right [...] and bladder with DICOMimage capture performed by blood bank technologist. FINDINGS: Ultrasound examination of the right [...] CARDIAC RHYTHM STRIP ORDER (10/08/2022 11:36 PM STONE REPAIRER) Only the most recent of2 resultswithin the time period is included. Narrative 10/08/2022 11:36 PM STONE REPAIRER Ordered by an unspecified provider. Scanned Document CARDIAC SERVICES ORD ERABLES * FL LEONELA SURGERY (10/05/2022 3:58 PM STONE REPAIRER) Narrative [facility] - 10/05/2022 3:59 PM STONE REPAIRER For details of this study, please see the providers note. Janny Torres MD FLUOROSCOPY ORDERA BLES [facility] [address] [place] [address] * STONE ANALYSIS QUANT (10/05/2022 2:31 PM STONE REPAIRER) Stone Weight 1426 mg 10/13/2022 11:06 PM STONE REPAIRER [facility] ([facility]) Stone Source Comment 10/13/2022 11:06 PM STONE REPAIRER [facility] ([facility]) Comment:Not provided Stone color [place] 10/13/2022 11:06 PM [facility] ([facility]) Stone size 9x8 mm 10/13/2022 11:06 PM [facility] ([facility]) Comment: Multiple pieces received. Dimensions of the largest piece reported. Stone Composition Comment 023 11:06 PM STONE REPAIRER [facility] ([facility]) Comment:Percentage (Represen ts the % composition) Calcium Oxalate Monoh 75 % 10/13/2022 11:06 PM STONE REPAIRER [facility] ([facility]) Calcium Oxalate Dihyd 20 % 10/13/2022 11:06 PM STONE REPAIRER [facility] ([facility]) Hydroxyapatite 5 % 10/13/2022 11:06 PM STONE REPAIRER [facility] ([facility]) Comment Comment 10/13/2022 11:06 PM STONE REPAIRER [facility] ([facility]) Comment: Calcium phosphate (hydroxyl form) includes hydroxyapatite, amorphous calcium phosphate, and whitlockite. Hydroxyapatite is the most common of the calcium phosphate salts found in human kidney stones. Comment Comment 10/13/2022 11:06 PM STONE REPAIRER [facility] ([facility]) Comment: Calculus received wet. Wet calculi must be dried before analysis, which delays reporting of results. Leaving calculi wet (such as water, saline, blood, urine) may lead to changes in composition. Stone photo Comment 10/13/2022 11:06 PM [facility]) Comment:Photograph will foll ow under a separate cover Comment: Comment 10/13/2022 11:06 PM [facility]) Comment: Physician questions regarding Calculi Analysis contact [facility] at: [phone]. Please Note: Comment 10/13/2022 11:06 PM [facility] ([facility]) Comment: Calculi report will follow via computer, mail or resident assistant delivery. Disclaimer: Comment 10/13/2022 11:06 PM [facility] ([facility]) Comment: This test was developed and its performance characteristics determined by [facility]. It has not been cleared or approved by the Food and Drug Administration. Pathology/Cytolo gy KIDNEY STONE / Unknown 10/05/2022 2:31 PM STONE REPAIRER 10/09/2022 7:57 AM STONE REPAIRER Narrative [facility] ([facility]) - 10/13/2022 11:06 PM STONE REPAIRER Performed at: 01 - [facility] [address] [place] [address] [address], [place], [place] [id number] Air Moving Technician: Colt Leong PhD, Phone: [phone] Janny Torres MD LAB - URINE CHEMIS TRY ORDERABLES [facility] ([facility]) [address] [place] [address] * IR PERC NEPHROSTOMY RIGHT (10/05/2022 12:50 PM STONE REPAIRER) Anatomical Region Laterality Modality Abdomen X-Ray Angiograph y 10/08/2022 1:12 PM STONE REPAIRER Impressions 10/08/2022 5:48 PM STONE REPAIRER IMPRESSION: SONOGRAPHICALLY AND FLUOROSCOPICALLY GUIDED PLACEMENT OF A 5 GREENLANDIC KUMPE CATHETER OVER AN AMPLATZ STIFF WIRE, THROUGH THE RIGHT KIDNEY, PAST THE PELVIC CALCULUS, INTO THE URINARY BLADDER. > Interpreting Provider: Jeff Farrar MD on 10/08/2022 5:48 PM Narrative 10/08/2022 5:48 PM STONE REPAIRER PROCEDURE: IR PERC NEPHROSTOMY RIGHT, DATE/TIME OF EXAM: 10/05/2022 1:02 PM, LOCATION [facility] INDICATION: N20.0: Calculus of kidney ADDITIONAL [...] Bentson guidewire was passed through the 6 Jordanian coaxial access system and a hydrophilic guidewire was directed caudally, past the large filling defect/calculus, into the ureter. This was followed with the 65 cm 5 Jordanian Kumpe catheter and directed into the urinary [...] minutes of fluoroscopy. FINDINGS: As above, the supervisor keymodule assembly images, under fluoroscopy, showed an ovoid calculus at the ureteropelvic junction. Images show mild pelvicalyceal dilatation. Final images, with the Kumpe catheter in the urinary bladder, confirming the access from a posterior calyx, through the collecting system, past the calculus, into the bladder.. Procedure Note Jeff Farrar MD - 10/08/2022 PROCEDURE: IR PERC NEPHROSTOMY RIGHT, DATE/TIME OF EXAM: :02 PM, LOCATION [facility] INDICATION: N20.0: Calculus of kidney ADDITIONAL [...] Bentson guidewire was passed through the 6 Jordanian coaxial accesssystem and a hydrophilic guidewire was directed caudally, past the largefilling defect/calculus, into the ureter. This was followed with the 65 cm 5 Jordanian Kumpe catheter and directedinto the urinary bladder. [...] minutes of fluoroscopy. FINDINGS: As above, the supervisor keymodule assembly images, under fluoroscopy, showed anovoid calculus at the ureteropelvic junction. Images show mild pelvicalyceal dilatation. Final images, with the Kumpe catheter in the urinarybladder, confirming the access from a posterior calyx, through the collecting system, past the calculus, into the bladder.. IMPRESSION: SONOGRAPHICALLY AND FLUOROSCOPICALLY GUIDED PLACEMENT OF A5 GREENLANDIC KUMPE CATHETER OVER AN AMPLATZ STIFF WIRE, THROUGH THE RIGHTKIDNEY, PAST THE PELVIC CALCULUS, INTO THE URINARY BLADDER. > Interpreting Provider: Jeff Farrar MD on 10/08/2022 5:48 PM Janny Torres MD IR ORDERABLES * EKG 12-LEAD (10/05/2022 10:09 AM STONE REPAIRER) Ventricular Rate 85 BPM [facility] MUSE Atrial Rate 85 BPM [facility] P-R Interval 160 ms [facility] QRS Duration ms 82 ms [facility] Q-T Interval ms 378 ms [facility] QTC Calculation (Bezet) 449 ms [facility] MUSE Calculated P [place] 35 degrees [facility] MUSE Calculated R [place] 21 degrees [facility] MUSE Calculated T [place] 28 degrees [facility] Interpretation EKG Normal sinus rhythm Cannot rule out Anterior infarct seen also in 01/16/08 Abnormal ECG When compared with ECG of 16-JAN-2008 19:22, unconfirmed No significant change was found Confirmed by MD KASHIF, SOSA Ohara ([id number]) on 10/09/2022 8:05:57 AM [facility] 10/05/2022 10:0 9 AM STONE REPAIRER 10/09/2022 8:05 AM STONE REPAIRER Sukhjinder Quezada DO ECG ORDERABLES [facility] * TYPE + SCREEN PANEL (10/05/2022 9:36 AM STONE REPAIRER) ABO Rh A POS 10/05/2022 10:37 AM STONE REPAIRER [facility] Comment:No history; collect retype. Antibody Screen NEG 10:37 AM STONE REPAIRER [facility] Blood Bank BLOOD SPECIMEN / Unknown Venipuncture / Unknown 10/05/2022 9:36 AM STONE REPAIRER 10/05/2022 9:45 AM STONE REPAIRER Janny Torres MD LAB - BLOOD BANK O RDERABLES [facility] [place] [place] [phone] * CT ABDOMEN AND PELVIS NON IV CONTRAST (10/05/2022 9:28 AM STONE REPAIRER) Anatomical Region Laterality Modality Abdomen, Pelvis Computed Tomogra phy 10/05/2022 10:3 8 AM STONE REPAIRER Impressions 10/05/2022 1:39 PM STONE REPAIRER IMPRESSION: 1. Right renal pelvic calculus with moderate right-sided hydronephrosis. Right-sided ureteric stent in place. Additional right renal lower pole calculi. 2. Nonobstructive left renal lower pole calculi. Edited by Melinda Gordon on 10/05/2022 11:24 AM > Interpreting Provider: Julieta Rae MD on 10/05/2022 1:39 PM Narrative 10/05/2022 1:39 PM STONE REPAIRER PROCEDURE: CT ABDOMEN PELVIS WO CONTRAST, DATE/TIME OF EXAM: 10/05/2022 9:29 AM, LOCATION [facility] INDICATION: N20.0: Calculus of kidney ADDITIONAL [...] DATE/TIME OF EXAM: 10/05/2022 9:29 AM, LOCATION [facility] INDICATION: N20.0: Calculus of kidney ADDITIONAL [...] * BLOOD TYPE VERIFICATION (10/05/2022 9:25 AM STONE REPAIRER) ABO Rh A POS 10/05/2022 10:35 AM STONE REPAIRER [facility] Blood Bank BLOOD SPECIMEN / Unknown Lab Venipuncture / Unknown 10/05/2022 9:25 AM STONE REPAIRER 10/05/2022 9:47 AM STONE REPAIRER Janny Torres MD LAB - BLOOD BANK O RDERABLES [facility] [place] [address], [facility] [phone] * GROSS EXAM PATHOLOGY (STL) (10/05/2022 12:00 AM STONE REPAIRER) Case Report Surgical Pathology Report Case: [id number] Authorizing Provider: Janny Schmidt MD Collected: 10/05/2022 12:00 AM Ordering Location: [address] [facility] Received: 10/08/2022 10:52 AM Pathologist: Joelle Chin MD Specimen: Calculus Kidney 10/09/2022 8:47 AM STONE REPAIRER [facility] [facility] Final Diagnosis Calculus, kidney, removal: - Consistent with removed calculus (gross examination only). SD 10/09/2022 8:47 AM STONE REPAIRER [facility] Gross Description Received in saline labeled Schlund, stone analysis are multiple brown-reynaga, multifaceted calculi, 3 cm in greatest aggregate dimension. The specimen is submitted for gross examination only. JI/ns 10/09/2022 8:[address] [facility] Embedded Images 10/09/2022 8:[address] [facility] Pathology/Cytolog y KIDNEY STONE / Unknown 10/05/2022 10/08/2022 10:52 AM STONE REPAIRER Janyn Torres MD LAB - PATHOLOGY/CY TOLOGY ORDERABLES [facility] [address] [place] [address] * LARYNGEAL MASK AIRWAY (08/22/2022 10:11 AM STONE REPAIRER) Narrative Zee Yost APRN-CRNA - 08/22/2022 10:11 AM STONE REPAIRER Zee Yost APRN-CRNA 08/22/2022 10:12 AM LMA [...] * (ABNORMAL) CULTURE URINE (07/04/2022 8:33 AM STONE REPAIRER) Urine Culture Routine Final report(A) [facility] INSURANCE [...] CATCH PROCEDURE / Unknown 07/04/2022 8:33 AM STONE REPAIRER 07/04/2022 Narrative Resulting Agency Comment Lab Testing performed at: [facility] [address] [facility] [id number] Janny Torres MD LAB - MICROBIOLOGY ORDERABLES [facility] INSURANCE BILL [address] [place] [address] * LAB RESULTS ORDER (01/11/2014 4:39 PM CDT) Narrative 01/11/2014 4:39 PM CDT Ordered by an unspecified provider. Transcriptions Document, Scanned - 01/11/2014 4:39 PM CDT Scanned Document LAB - THERAPEUTIC DR UG MONITORING ORDERABLES * VANCOMYCIN LEVEL RANDOM (01/08/2014 10:59 AM CDT) Vancomycin Random 11.3 ug/mL 01/08/2014 11:27 AM CDT [facility] Blood BLOOD SPECIMEN / Unknown Lab Venipuncture / Unknown 01/08/2014 10:59 AM CDT 01/08/2014 11:04 AM CDT Narrative [facility] - 01/08/2014 11:27 AM CDT No reference range available for random Vancomycin levels. All results interpreted by ordering physician. Cheikh Urias DO LAB - CHEMISTRY ORDE RABBERNADETTE Performing Organization Address City/[facility]/ZIP Co de Phone Number [facility] [address] [address] * PT PTT PANEL (01/07/2014 2:40 PM CDT) Only the most recent of5 resultswithin the time period is included. PT 10.0 9.3 - 11.4 sec 01/07/2014 3:06 PM CDT [facility] INR 0.95 0.92 - 1.12 01/07/2014 3:06 PM CDT [facility] PTT 27.5 23.0 - 34.0 sec 01/07/2014 3:06 PM CDT [facility] Blood BLOOD SPECIMEN / Unknown Lab Venipuncture / Unknown 01/07/2014 2:40 PM CDT 01/07/2014 2:50 PM CDT Narrative [facility] - 01/07/2014 3:06 PM CDT Conventional Anticoagulant Therapy INR Reference Ranges: 2.0-3.0 Intensive Anticoagulant Therapy INR Reference Ranges: 2.5-3.5 Cheikh Urias DO LAB - COAGULATION OR DERABLES [facility] [address] [address] * FL VENOGRAM EXTREMITY UNILATERAL (01/07/2014 2:30 [...] PM CDT Narrative 01/07/2014 1:[address]T [address] [address] Lower Extremity Venous Ultrasound Report Pat.Name: ALLY YANES Pat.ID: [id number] St.Date: 01/06/2014 Exam Time: 9:53:00 PM Study Type:LE Venous Age: 8 1955,58Y Sex: FEMALE Sonogrphr: Helga Cardenas RVT Room: ER 21 Reason for Study:Swelling -Leg, right, Pain -Leg, right, + D-Dimer, Calf pain - right, Cellulitis History / Clinical:Obesity, History of DVT Visit ID: [id number] SUMMARY: Negative for DVT at this time. [...] PM Ze Avila MD Procedure Note 01/07/[address] [address] Lower Extremity Venous Ultrasound Report Pat.Name: ALLY YANES Pat.ID: [id number] .Date: 01/06/2014 Exam Time: 9:53:00 PM Study Type:LE Venous Age: 8 1955,58Y Sex: FEMALE Sonogrphr: Helga Cardenas RVT Room: ER 21 Reason for Study:Swelling -Leg, right, Pain -Leg, right, + D-Dimer, Calf pain - right, Cellulitis History / Clinical:Obesity, History of DVT Visit ID: [id number] SUMMARY: Negative for DVT at this time. [...] Culture No Growth 01/13/2014 11:22 AM CDT [facility] Blood PERIPHERAL BLOOD / Unknown 01/06/2014 7:43 PM CDT 01/06/2014 7:53 PM CDT Garrett Graham MD LAB - MICROBIOLOGY O RDERABLES Performing Organization Address [facility] Co de Phone Number [facility] [address] [place] [address], [facility] * (ABNORMAL) D-DIMER (01/06/2014 6:54 PM CDT) [facility] D-Dimer 2.74(H) 0 - 0.5 mg/L FEU 01/06/2014 7:11 PM CDT [facility] Blood BLOOD SPECIMEN / Unknown Venipuncture / Unknown 01/06/2014 6:54 PM CDT 01/06/2014 6:58 PM CDT Narrative [facility] - 01/06/2014 7:11 PM [...] - COAGULATION OR DERABLES Performing Organization Address [facility] Co de Phone Number [facility] [address] [place] [address] * CBC W MANUAL DIFFERENTIAL (01/06/2014 6:51 PM CDT) [facility] WBC 6.1 4.4 - 10.7 x10^9/L 01/06/2014 7:01 PM CDT [facility] RBC 4.56 3.80 - 5.20 x10^12/L 01/06/2014 7:01 PM CDT [facility] Hemoglobin 12.7 12.0 - 15.6 gm/dL 01/06/2014 7:01 PM CDT [facility] Hematocrit 37.8 35.9 - 45.5 % 01/06/2014 7:01 PM CDT [facility] MCV 82.9 80.7 - 98.3 fl 01/06/2014 7:01 PM CDT [facility] MCH 27.9 26.7 - 34.0 pg 01/06/2014 7:01 PM CDT [facility] MCHC 33.6 30.8 - 35.9 gm/dL 01/06/2014 7:01 PM CDT [facility] RDW-CV 13.7 12.1 - 14.9 % 01/06/2014 7:01 PM CDT [facility] MPV 11.0 9.4 - 12.9 fl 01/06/2014 7:01 PM CDT [facility] Platelet Count 297 153 - 416 x10^9/L 01/06/2014 7:01 PM T [facility] Blood BLOOD SPECIMEN / Unknown Venipuncture / Unknown 01/06/2014 6:51 PM CDT 01/06/2014 6:58 PM CDT Garrett Graham MD LAB - HEMATOLOGY ORD ERABLES [facility] [address] [facility] [address] * (ABNORMAL) COMPREHENSIVE METABOLIC PANEL (01/06/2014 6:51 PM CDT) Only the most recent of2 resultswithin the time period is included. Glucose 109(H) 74 - 106 mg/dL 01/06/2014 7:15 PM CDT [facility] Sodium 139 136 - 145 mmol/L 01/06/2014 7:15 PM CDT [facility] Potassium 4.5 3.5 - 5.1 mmol/L 01/06/2014 7:15 PM CDT [facility] Chloride 102 98 - 107 mmol/L 01/06/2014 7:15 PM CDT [facility] CO2 29 22 - 31 mmol/L 01/06/2014 7:15 PM CDT [facility] Calcium 9.0 8.5 - 10.1 mg/dL 01/06/2014 7:15 PM CDT [facility] Anion Gap 8 5 - 15 mmol/L 01/06/2014 7:15 PM CDT [facility] BUN 12 7 - 21 mg/dL 01/06/2014 7:15 PM T [facility] Creatinine 0.54 0.50 - 1.30 mg/dL 01/06/2014 7:15 PM T [facility] eGFR by MDRD >60 >60 mL/min/1.7 3m2 01/06/2014 7:15 PM T [facility] eGFR by MDRD >60 >60 mL/min/1.7 3m2 01/06/2014 7:15 PM T [facility] Alkaline Phosphatase 138(H) 38 - 126 U/L 01/06/2014 7:15 PM T [facility] ALT 74 12 - 78 U/L 01/06/2014 7:15 PM [facility] AST 66(H) 5 - 40 U/L 01/06/2014 7:15 PM [facility] Protein Total 9.0(H) 6.4 - 8.2 gm/dL 01/06/2014 7:15 PM [facility] Albumin 3.0(L) 3.4 - 5.0 gm/dL 01/06/2014 7:15 PM [facility] Bilirubin Total 0.5 0.2 - 1.0 mg/dL 01/06/2014 7:15 PM [facility] Blood BLOOD SPECIMEN / Unknown Venipuncture / Unknown 01/06/2014 6:51 PM CDT 01/06/2014 6:58 PM CDT Narrative [facility] - 01/06/2014 7:15 PM CDT Slight hemolysis. Garrett Graham MD LAB - CHEMISTRY SHRADDHA JOYA [facility] Organization Address City/State/ZIP Co de Phone Number [facility] [address] [place] [address] * DIFFERENTIAL MANUAL (01/06/2014 6:51 PM CDT) WBC Auto 6.1 x10^9/L 01/06/2014 7:34 PM CDT [facility] Neutrophil % Manual 57 44 - 73 % 01/06/2014 7:34 PM CDT [facility] Lymphocytes % Manual 31 20 - 43 % 01/06/2014 7:34 PM CDT [facility] Monocytes % Manual 8 5 - 13 % 01/06/2014 7:34 PM CDT [facility] Eosinophils % Manual 2 0 - 6 % 01/06/2014 7:34 PM CDT [facility] Band % Manual 2 0 - 11 % 01/06/2014 7:34 PM CDT [facility] Cells Counted 100 # cells 01/06/2014 7:34 PM T [facility] RBC Morphology Normal 01/06/2014 7:34 PM T [facility] WBC Morph Normal 01/06/2014 7:34 PM CDT [facility] Blood BLOOD SPECIMEN / Unknown 01/06/2014 6:51 PM CDT 01/06/2014 6:58 PM CDT Garrett Graham MD LAB - HEMATOLOGY ORD ERABLES [facility] [address] [address] * CARDIAC PROCEDURE ORDER (06/21/2009 5:37 PM STONE REPAIRER) Narrative 06/21/2009 5:37 PM STONE REPAIRER Ordered by an unspecified provider. Transcriptions Document, Scanned - 06/20/2009 12:00 AM STONE REPAIRER Scanned Document CARDIAC SERVICES ORD ERABLES * IR FLUORO GUIDE FOR SPINAL INJECTION (06/20/2009 2:40 PM STONE REPAIRER) Anatomical Region Laterality Modality Radiographic Eda ging 06/20/2009 4:43 PM STONE REPAIRER Impressions 06/20/2009 5:22 PM STONE REPAIRER Successful fluoroscopic guided cervical epidural steroid injection as described above. Narrative 06/20/2009 5:22 PM STONE REPAIRER Fluoroscopic guided cervical epidural steroid injection Clinical [...] GROSS + MICRO EXAM (09/24/2008 1:15 PM STONE REPAIRER) Only the most recent of3 resultswithin the [...] segments of blood vessels with blood clots. Barmaid sections are submitted in cassettes A1 and [...] microscopic description). Dictated by Dr. Kavon Hammond Operations Controller ALLY GROSS Electronically Signed By DOREEN HAMMOND MISCELLANEOUS SAMPLES / Unknown 09/24/2008 1:15 PM STONE REPAIRER 09/24/2008 2:19 PM STONE REPAIRER Historical Provider LAB - PATHOLOGY/C YTOLOGY ORDERABLES * CULTURE WOUND (09/24/2008 1:15 PM STONE REPAIRER) Result [facility] Comment: Final ACCN COMMENT Hematoma - left leg - septic thromb* GRAM STAIN Heavy rbc's Rare WBC's No organisms seen CULTURE No growth. HEMATOMA / Unknown 9 1:15 PM STONE REPAIRER 09/24/2008 2:27 PM STONE REPAIRER Narrative Resulting Agency Comment Performed By [facility] [address] [place] [address] Connor Leon MD LAB - MICROBIOLOGY O KENNY Performing Organization Address [facility] Co de Phone Number [facility] * CULTURE FLUID (03/29/2008 11:00 AM CDT) Result [facility] Comment: Final GRAM STAIN Moderate WBC's No organisms seen CULTURE swab sent No growth. 03/29/2008 11:0 0 AM CDT 03/29/2008 12:10 PM CDT Narrative Resulting Agency Comment Performed By [facility] [address] [place] [address] Connor Leon MD LAB - MICROBIOLOGY O KENNY Performing Organization Address [facility] de Phone Number [facility] * US GUIDE NEEDLE PLACEMENT (03/29/2008 10:33 [...] the skin and subcutaneous tissue. 19-gauge 5 Jordanian catheter was then placed under ultrasound into [...] the skin and subcutaneous tissue. 19-gauge 5 Jordanian catheter was then placed under ultrasound into [...] SCP- Connor Leon MD ORDERABLES Care Teams Commercial Construction Estimator Relationship Specialty Start Date End Date Noé Lew MD [address] [place] [address] PCP - General Internal Medicine 07/04/24 Janny Torres MD [address] [place] [address] [address] [place] [phone] Physician Urology 05/07/24
--- OUTSIDE RECORDS SUMMARY | 2024-09-18 10:33 | XMS_ITS | Encounter Summary ---
Author Organization [facility] Address [address] [place] [address] Care Team Providers Care Personnel Representative Name Role Phone Martha Arriaga MD Primary Care Provid er Encounter Details Date Type Department Care Team (Latest Contact Info) Description 07/12/2003 Outpatient Historical [facility] CAPRICE Saldaña, Luis Carlos SIMMONS W MANIF NEC ADULT ([facility]) (Primary Dx) Social History Tobacco Use Types Packs/Day Years Used Date Smoking Tobacco: Never Assessed Comments Unknown Sex and Gender Information Value Date Recorded Sex Assigned at Not on file Legal Sex Female 3:23 AM MOVEMENT EDUCATION SPECIALIST Gender Identity Not on file Sexual Orientation Not on file documented as of this encounter Plan of Treatment Not on file documented as of this encounter Visit Diagnoses Diagnosis Type II or unspecified type diabetes mellitus with other specified manifestations, not stated as uncontrolled ([facility])- Primary Type II or unspecified type diabetes mellitus with other specified manifestations, not stated as uncontrolled documented in this encounter Care Teams Personnel Representative Relationship Specialty Start Date End Date Martha Arriaga MD PCP - General Internal Medicine 05/10/20 documented as of this encounter
--- OUTSIDE RECORDS SUMMARY | 2024-09-18 10:33 | XMS_ITS | Encounter Summary ---
Author Organization [facility] Address [address] [place] [address] Care Team Providers Care Slurry Mixer Name Role Phone Martha Arriaga MD Primary Care Provid er Encounter Details Date Type Department Care Team (Late st Contact Info) Description 06/09/2004 Outpatient Historical [facility] [address] [place] [phone] [place] [address] [place] [phone] Social History Tobacco Use Types Packs/Day Years Used Date Smoking Tobacco: Never Assessed Comments Unknown Sex and Gender Information Value Date Recorded Sex Assigned at Not on file Legal Sex Female 3:23 AM ELECTRICAL APPRENTICE Gender Identity Not on file Sexual Orientation Not on file documented as of this encounter Plan of Treatment Not on file documented as of this encounter Visit Diagnoses Not on filedocumented in this encounter Care Teams Slurry Mixer Relationship Specialty Start Date End Date Martha Arriaga MD PCP - General Internal Medicine 05/10/20 documented as of this encounter
--- OUTSIDE RECORDS SUMMARY | 2024-09-18 10:33 | XMS_ITS | Encounter Summary ---
Author Organization [employer] Address [address] [place] [address] Care Team Providers Care Scratch Polisher Name Role Phone Martha Arriaga MD Primary [...] file Legal Sex Female 3:23 AM MOBILE DEVELOPMENT MANAGER Gender Identity Not on file Sexual Orientation Not on file documented as of this encounter Plan of Treatment Not on file documented as of this encounter Visit Diagnoses Diagnosis Contusion of knee- Primary documented in this encounter Care Teams Scratch Polisher Relationship Specialty Start Date End Date Martha Arriaga MD PCP - General Internal Medicine 05/10/20 documented as of this encounter
--- OUTSIDE RECORDS SUMMARY | 2024-09-18 10:33 | XMS_ITS | Encounter Summary ---
Author Organization [employer] Address [address] [place] [address] Care Team Providers Care Health Plan Advisor Name Role Phone Martha Arriaga MD Primary [...] file Legal Sex Female 3:23 AM MARKETING TEAM LEAD Gender Identity Not on file Sexual Orientation Not on file documented as of this encounter Plan of Treatment Not on file documented as of this encounter Visit Diagnoses Diagnosis Other chronic nonalcoholic liver disease- Primary documented in this encounter Care Teams Health Plan Advisor Relationship Specialty Start Date End Date Martha Arriaga MD PCP - General Internal Medicine 05/10/20 documented as of this encounter
--- OUTSIDE RECORDS SUMMARY | 2024-09-18 10:33 | XMS_ITS | Referral Summary ---
Author Organization [facility] Address [address] [facility] [place] [address] Care Team Providers Care Appliance Technician Name Role Phone Janny Torres MD Unavailable [phone] Noé Lew MD Primary Care Provider [phone] Source Comments [facility],non-owned Affiliates and Associated Physician Practices is amultiple site organization consisting of ambulatory clinics and hospital sitesin [place], [place], [place] and [place]. This disclosure is being madepursuant to the Care Everywhere program and may not contain all information available regarding this patient. Last updated 18.[facility] Encounters Date Type Department Care Team Description 09/07/2024 Travel 09/07/2024 10:00 AM DIRECTOR MARKETING COMMUNICATIONS Office Visit [facility] - Rheumatology [facility] [place] [phone] Gaby Lion MD Ribonucleoprotein antibody positive (Primary Dx) 08/26/2024 Travel 07/04/2024 3:41 PM DIRECTOR MARKETING COMMUNICATIONS - 07/04/2024 11:59 PM DIRECTOR MARKETING COMMUNICATIONS Hospital Encounter [facility] Imaging Services - CT Scan [facility] [place] [address] Discharge Disposition: Home or Self [...] Status vitamin D, ergocalciferol, (Drisdol) 1.25 MG (55159 UT) capsule 1 (one) capsule every 7 [...] Sex Assigned at Female 07/19/2022 2:59 PM DIRECTOR MARKETING COMMUNICATIONS Gender Identity Female 07/19/2022 2:59 PM DIRECTOR MARKETING COMMUNICATIONS Sexual Orientation Straight 07/19/2022 2: 59 PM DIRECTOR MARKETING COMMUNICATIONS Travel History Travel Start Travel End [place] 09/07/2024 09/07/2024 Last Filed Vital Signs Vital Sign Reading Time Taken Comments Blood Pressure 151/94 09/07/2024 9:55 AM DIRECTOR MARKETING COMMUNICATIONS Pulse 90 09/07/2024 9:55 AM DIRECTOR MARKETING COMMUNICATIONS Temperature 36.6 C (97.9 F) 09/07/2024 9:55 AM DIRECTOR MARKETING COMMUNICATIONS Respiratory Rate 14 05/16/2023 11:17 AM CDT Oxygen Saturation 92% 09/07/2024 9:55 AM DIRECTOR MARKETING COMMUNICATIONS Inhaled Oxygen Concentration - - Weight 150.1 kg (331 lb) 09/07/2024 9:55 AM DIRECTOR MARKETING COMMUNICATIONS Height 165.1 cm (5' 5 ) 09/07/2024 9:55 AM DIRECTOR MARKETING COMMUNICATIONS Body Mass Index 55.08 09/07/2024 9:55 AM DIRECTOR MARKETING COMMUNICATIONS Functional Status Functional Status Response Date of [...] Description 05/06/2025 10:00 AM CDT Office Visit [facility] Medical [facility] - Urology [address], [address] [place] [address] Janny Torres MD [address] [place] [address] Medical Devices Implanted Type Area Signal Mechanic Device Identifier Shelf Expiration Date Model / Serial / Lot Stent Uret 6fr 22-30cm Pgtl Crv Tpr Tip Implanted:Qty: 1 on 10/05/2022 by Janny Torres MD at [facility] Right: [employer] 06/24/2025 [id number] / / [id number] Procedures Procedure Name Priority Date/Time Associated Diagnosis Comments CT ABDOMEN PELVIS W CONTRAST Routine 07/04/2024 4:27 PM DIRECTOR MARKETING COMMUNICATIONS Abdominal pain, unspecified abdominal location CREATININE - POCT INTERFACED Routine 07/04/2024 4:06 PM DIRECTOR MARKETING COMMUNICATIONS BASIC METABOLIC PANEL (CALCIUM TOTAL) TEQUILA 05/16/2023 8:31 AM CDT Right renal stone from Last 3 Months or Most Recently Relevant to Health Maintenance Results * CT Abdomen Pelvis W Contrast (07/04/2024 4:27 PM DIRECTOR MARKETING COMMUNICATIONS) Anatomical Region Laterality Modality Abdomen, Pelvis Computed Tomogra phy 07/05/2024 9:07 AM DIRECTOR MARKETING COMMUNICATIONS Impressions 07/05/2024 9:25 AM DIRECTOR MARKETING COMMUNICATIONS IMPRESSION: 1.Hepatomegaly with steatosis 2.Multiple ventral hernias as described. No bowel obstruction. 3.Decreased collection within the right kidney. Follow-up ultrasound recommended. 4.Nonobstructing left renal calculi 5.Hiatal hernia 6.Right adnexal cyst 7.Cardiomegaly > Interpreting Provider: Deacon Reyna MD on 07/05/2024 9:25 AM Narrative 07/05/2024 9:25 AM [address] MARKETING COMMUNICATIONS CT ABDOMEN WITH CONTRAST CT PELVIS WITH [...] CREATININE - POCT INTERFACED (07/04/2024 4:06 PM DIRECTOR MARKETING COMMUNICATIONS) Creatinine POCT 0.86 0.70 - 1.20 mg/dL 07/04/2024 4:14 PM DIRECTOR MARKETING COMMUNICATIONS [facility] eGFR 73(L) >=90 mL/min/1.7 3 m2 07/04/2024 4:14 PM DIRECTOR MARKETING COMMUNICATIONS [facility] Blood BLOOD SPECIMEN / Unknown 07/04/2024 4:06 PM DIRECTOR MARKETING COMMUNICATIONS 07/04/2024 4:14 PM DIRECTOR MARKETING COMMUNICATIONS Provider Unknown LAB - POINT OF CARE ORDERABLES Performing Organization Address City/State/[facility] Co de Phone Number [facility] [address] [place] [address] * (ABNORMAL) BASIC METABOLIC PANEL (CALCIUM TOTAL) (05/16/2023 8:31 AM CDT) Glucose 107(H) 70 - 105 mg/dL 05/16/2023 8:55 AM CDT [facility] Sodium 141 136 - 145 mmol/L 05/16/2023 8:55 AM CDT [facility] Potassium 4.0 3.5 - 5.1 mmol/L 05/16/2023 8:55 AM CDT [facility] Chloride 102 98 - 107 mmol/L 05/16/2023 8:55 AM CDT [facility] CO2 29 22 - 29 mmol/L 05/16/2023 8:55 AM CDT [facility] Calcium 9.4 8.4 - 10.4 mg/dL 05/16/2023 8:55 AM CDT [facility] Anion Gap 10 6 - 16 mmol/L 05/16/2023 8:55 AM CDT [facility] BUN 20 7 - 26 mg/dL 05/16/2023 8:55 AM CDT [facility] Creatinine 1.37(H) 0.57 - 1.11 mg/dL 05/16/2023 8:55 AM CDT [facility] eGFR by CKD-EPI 42(L) >=90 mL/min/1.7 3 m2 05/16/2023 8:55 AM CDT [facility] Blood BLOOD SPECIMEN / Unknown Venipuncture / Unknown 05/16/2023 8:31 AM CDT 05/16/2023 8:38 AM CDT Chan Sarkar MD LAB - CHEMISTRY SHRADDHA JOYA [facility] Organization Address City/State/ZIP Co de Phone Number [facility] [address] [place] [address] from Last 3 Months or Most Recently Relevant to Health Maintenance Advance Directives * Full Code (Latest Code Status on File) Date Activated Date Inactivated Comments 10/05/2022 2:55 PM 10/06/2022 3:16 PM * Full Code Date Activated Date Inactivated Comments 01/06/2014 10:09 PM 01/10/2014 2:39 PM Care Teams Appliance Technician Relationship Specialty Start Date End Date Noé Lew MD [address] [place] [address] PCP - General Internal Medicine 07/04/24 Janny Torres MD [address] [place] [address] [address] [place] [address] Physician Urology 05/07/24
--- OUTSIDE RECORDS SUMMARY | 2024-09-18 10:33 | XMS_ITS | Encounter Summary ---
Author Organization [facility] Address [address] [place] [address] Care Team Providers Care Sum[place] Tanner Name Role Phone Martha Arriaga MD Primary Care Provid er Encounter Details Date Type Department Care Team (Latest Contact Info) Description 10/14/2002 Outpatient Historical [facility] Noé Lobato MD [address] [place] [phone] CONTUSION OF KNEE (Primary Dx) Social History Tobacco Use Types Packs/Day Years Used Date Smoking Tobacco: Never Assessed Comments Unknown Sex and Gender Information Value Date Recorded Sex Assigned at Not on file Legal Sex Female 3:23 AM COURTESY CLERK Gender Identity Not on file Sexual Orientation Not on file documented as of this encounter Plan of Treatment Not on file documented as of this encounter Visit Diagnoses Diagnosis Contusion of knee- Primary documented in this encounter Care Teams Sumac Tanner Relationship Specialty Start Date End Date Martha Arriaga MD PCP - General Internal Medicine 05/10/20 documented as of this encounter
--- OUTSIDE RECORDS SUMMARY | 2024-09-18 10:33 | XMS_ITS | Encounter Summary ---
Author Organization [employer] Address [address] [place] [address] Care Team Providers Care Purification Operator Helper Name Role Phone Martha Arriaga MD Primary Care Provid er Encounter Details Date Type Department Care Team (Late st Contact Info) Description 11/15/2002 Outpatient Historical [facility] Noé Lobato MD [address] [place] [phone] Social History Tobacco Use Types Packs/Day Years Used Date Smoking Tobacco: Never Assessed Comments Unknown Sex and Gender Information Value Date Recorded Sex Assigned at Not on file Legal Sex Female 3:23 AM SHOT POLISHER Gender Identity Not on file Sexual Orientation Not on file documented as of this encounter Plan of Treatment Not on file documented as of this encounter Visit Diagnoses Not on filedocumented in this encounter Care Teams Purification Operator Helper Relationship Specialty Start Date End Date Martha Arriaga MD PCP - General Internal Medicine 05/10/20 documented as of this encounter
--- OUTSIDE RECORDS SUMMARY | 2024-09-18 10:33 | XMS_ITS | Encounter Summary ---
Author Organization [facility] Address [address] [place] [address] Care Team Providers Care Family Law Attorney Name Role Phone Martha Arriaga MD Primary Care Provid er Encounter Details Date Type Department Care Team (Latest Contact Info) Description 11/02/2002 Outpatient Historical [facility] Saldaña, Luis Carlos BLOOD DISEASES NEC (Primary Dx) Social History Tobacco Use Types Packs/Day Years Used Date Smoking Tobacco: Never Assessed Comments Unknown Sex and Gender Information Value Date Recorded Sex Assigned at Not on file Legal Sex Female 3:23 AM CONSTRUCTION SERVICES TECHNICIAN Gender Identity Not on file Sexual Orientation Not on file documented as of this encounter Plan of Treatment Not on file documented as of this encounter Visit Diagnoses Diagnosis Other blood disease- Primary Other specified diseases of blood and blood-forming organs documented in this encounter Care Teams Family Law Attorney Relationship Specialty Start Date End Date Martha Arriaga MD PCP - General Internal Medicine 05/10/20 documented as of this encounter
--- OUTSIDE RECORDS SUMMARY | 2024-09-18 10:33 | XMS_ITS | Encounter Summary ---
Author Organization [facility] Address [address] [place] [address] Care Team Providers Care Lace Stripper Name Role Phone Martha Arriaga MD Primary Care Provid er Encounter Details Date Type Department Care Team (Latest Contact Info) Description 06/09/2004 Outpatient Historical [facility] [address] [place] [phone] Luis Carlos Saldaña OPEN WOUND KNEE/LEG-COMPL (Primary Dx) Social History Tobacco Use Types Packs/Day Years Used Date Smoking Tobacco: Never Assessed Comments Unknown Sex and Gender Information Value Date Recorded Sex Assigned at Not on file Legal Sex Female 3:23 AM LIQUID NATURAL GAS PLANT OPERATOR Gender Identity Not on file Sexual Orientation Not on file documented as of this encounter Plan of Treatment Not on file documented as of this encounter Visit Diagnoses Diagnosis Open wound of knee, leg (except thigh), and ankle, complicated- Primary documented in this encounter Care Teams Lace Stripper Relationship Specialty Start Date End Date Martha Arriaga MD PCP - General Internal Medicine 05/10/20 documented as of this encounter
--- OUTSIDE RECORDS SUMMARY | 2024-09-18 10:33 | XMS_ITS | Encounter Summary ---
Author Organization [facility] Address [address] [place] [address] Care Team Providers Care Accounting Machine Operator Name Role Phone Martha Arriaga MD Primary Care Provid er Encounter Details Date Type Department Care Team (Late st Contact Info) Description 04/26/2005 Outpatient Historical [facility] [address] [place] [phone] [place] [address] [place] [phone] Social History Tobacco Use Types Packs/Day Years Used Date Smoking Tobacco: Never Assessed Comments Unknown Sex and Gender Information Value Date Recorded Sex Assigned at Not on file Legal Sex Female 3:23 AM ER REGISTRAR Gender Identity Not on file Sexual Orientation Not on file documented as of this encounter Plan of Treatment Not on file documented as of this encounter Visit Diagnoses Not on filedocumented in this encounter Care Teams Accounting Machine Operator Relationship Specialty Start Date End Date Martha Arriaga MD PCP - General Internal Medicine 05/10/20 documented as of this encounter
--- OUTSIDE RECORDS SUMMARY | 2024-09-18 10:33 | XMS_ITS | Data Portability ---
[facility] [address] [place] [address] Care Team Providers Care Off Track Betting Manager Name Role Phone DEMETRIUS LEW Primary Care Provider [phone] Assessment Encounter Date Assessment Date Assessment LastModified [...] care instructions mammogram refuses flu refuses COVID [id number] Not available 06/13/2024 17:57:21 Plan of Treatment Reminders Order Date Submit Date Provider Last Modified By Organization Details Last Modified Time Details Appointments ANY 15 2024 09:15A Duke Lew MD Not available Not available Not available Lab CBC w/ auto diff 2023 024 [facility], [address], [address], [place], [address], 06/23/2024 13:12:39 urinalysi s complete, reflex culture 2023 024 [facility], [address], [address], [place], [address], 06/23/2024 13:12:30 rf (rheumato id factor), serum 2023 024 [facility], [address], [address], [place], [address], 06/23/2024 13:12:41 BRIDGER (antinucl ear antibodie s) screen, serum 2023 [facility], [address], [address], [place], [address], 06/23/2024 13:12:25 ESR (erythroc yte sedimenta tion rate), blood 2023 [facility], [address], [address], [place], [address], 06/23/2024 13:12:40 C reactive protein, QN, serum or plasma 2023 LISA QUIÑONEZVIK[facility], [address], [address], [place], [address], 06/23/2024 13:12:42 T3, free, serum or plasma 2023 024 [facility]QUE[facility], [address], [address], [place], [address], 06/23/2024 13:12:44 T4, free, serum 2023 LISA QUIÑONEZVIKAS, [address], [address], [place], [address], 06/23/2024 13:12:46 TSH, ultra-sen sitive, serum 2023 LISA [facility]QZUE[facility]NAK[facility], [address], [address], [place], [address], 06/23/2024 13:12:36 vitamin D, 25-hydrox y, total, serum 2023 024 [facility], [address], [place], [address], 06/23/2024 13:12:47 lipid panel, serum 2023 024 [facility], [address], [address], [place], [address], 06/23/2024 13:12:27 CMP, serum or plasma 2023 024 L[facility] QUIÑONEZRP, [address], [address], [place], [address], 06/23/2024 13:12:28 factor V mutation, blood or tissue 2023 024 [facility], [address], [place], [address], 06/23/2024 13:12:32 protein S Ag, total + free, plasma 2023 024 [facility], [address], [address], [place], [address], 06/15/2024 15:10:24 protein C Ag, total, plasma 2023 024 [facility], [address], [address], [place], [address], 06/14/2024 17:07:43 antiphosp holipid antibody panel, serum 2023 024 [facility], [address], [address], [place], [address], 06/23/2024 13:12:26 homocyste ine, moles/vol ume, serum 2023 024 [facility], [address], [address], [place], [address], 06/23/2024 13:12:33 antithrom bin activity, plasma 2023 024 [facility], [address], [place], [address], 06/15/2024 06:07:57 HbA1c (hemoglob in A1c), blood 2023 024 [facility], [address] [facility], [address], [place], [address], 06/23/2024 13:12:35 insulin, serum 2023 024 [facility], [address] [facility], [address], [place], [address], 06/23/2024 13:12:38 noninvasi ve colorecta l cancer DNA + occult blood screening , QL, stool 2023 [facility] (Cologuard Orders Only), [address], [address], [place], [address], 07/24/2024 01:04:44 vitamin B12 + folate, serum or blood 2023 [address] [facility], [address] [facility], [address], [place], [address], 06/23/2024 13:12:34 Referral None recorded. Procedures None recorded. Surgeries None recorded. Imaging MAMMO, screening , digital, bilateral 2023 024 [facility], [address], [place], [address], 09/16/2024 18:24:37 CT, abdomen + pelvis, w/ contrast [facility] [address] [place], [address], 07/15/2024 11:52:15 Medication Orders None recorded. Patient TargetsNo targets recorded. Patient Instructions Encounter Date Encounter Id Patient Instructions Last Modified By Organization Details Last Modified Time 06/12/2024 [id number] A healthy lifestyle: care instructions Not available 06/12/2024 11:59:03 Reason for Referral None Reported. Results Created Date Observation Date Name Description Value Unit Range Abnormal Flag Note LastModifiedBy Organization Detail LastModifiedTime 06/12/20 24 06/14/2024 PROTE IN C ANTIG EN protein C antigen 116 % 60-150 Not Available [facility] ([facility]) [address], [place], [address], 06/14/2024 17:07:43 06/12/20 24 06/14/2024 ANTIT HROMB IN ACTIV ITY antithrombin activity 117 % 75-135 Direc t Xa inhib itor antic oagul ants such as rivar oxaba n, apixa ban and edoxa ban will lead to spuri ously eleva eduardo antit hromb in activ ity level s possi yessenia maski ng a defic iency . Not Available [facility] ([facility]) [address], [place], [address], 06/15/2024 06:07:57 06/12/2006/15/2024 PROTE IN S PANEL protein S, total 111 % 60-150 This test was estiven duran and its perfo rmanc e syeda cteri stics deter mined by [facility]. It has not been clear ed or appro shannon by the Food and Drug Admin istra tion. Not Available [facility] ([facility]) [address], [place], [address], 06/15/2024 15:10:24 06/12/20 24 06/15/2024 PROTE IN S PANEL protein S, free 106 % 61-136 Not Available [facility] ([facility]) [address], [place], [address], 06/15/2024 15:10:24 06/12/20 24 06/15/2024 PROTE IN [...] or refut e this resul t corry d be consi dered , after namraat osborne out acqui red cause s, oriana fajardo on the clini [facility]edy. Not Available [facility] ([facility]) [address], [place], [address], 06/15/2024 15:10:24 06/12/20 24 06/15/2024 MAGNUS+C 3+C4+ DNA/D S+ANT ICH+C EN... anti-DNA (ds) Ab qn <1 IU/mL 0-9 Negat min <5 Equiv ocal 5 - 9 Posit min >9 Not Available [facility] ([facility]) [address], [place], [address], 06/23/2024 13:12:24 06/12/20 24 06/15/2024 MAGNUS+C 3+C4+ DNA/D S+ANT ICH+C EN... journalism professor antibodies 1.0 ai 0.0-0. 9 above high normal Not Available [facility] ([facility]) [address], [place], [address], 06/23/2024 13:12:24 06/12/20 24 06/15/2024 MAGNUS+C 3+C4+ DNA/D S+ANT ICH+C EN... szymanski antibodies <0.2 ai 0.0-0. 9 Not Available [facility] ([facility]) [address], [place], [address], 06/23/2024 13:12:24 06/12/20 24 06/15/2024 MAGNUS+C 3+C4+ DNA/D S+ANT ICH+C EN... antisclerode rma-70 antibodies <0.2 Not Available [facility] ([facility]) [address] [place], [address], 06/23/2024 13:12:24 06/12/20 24 06/15/2024 MAGNUS+C 3+C4+ DNA/D S+ANT ICH+C EN... sjogren's anti-ss-A <0.2 Not Available [facility] ([facility]) [address], [place], [address], 06/23/2024 13:12:24 06/12/20 24 06/15/2024 MAGNUS+C 3+C4+ DNA/D S+ANT ICH+C EN... sjogren's anti-ss-B <0.2 Not Available [facility] ([facility]) [address], [place], [address], 06/23/2024 13:12:24 06/12/20 24 06/15/2024 MAGNUS+C 3+C4+ DNA/D S+ANT ICH+C EN... antichromati n antibodies <0.2 Not Available [facility] ([facility]) [address], [place], [address], 06/23/2024 13:12:24 06/12/20 24 06/15/2024 MAGNUS+C 3+C4+ DNA/D S+ANT ICH+C EN... anti-hellen-1 <0.2 Not Available [facility] ([facility]) [address] [place], [address], 06/23/2024 13:12:24 06/12/20 24 06/15/2024 MAGNUS+C 3+C4+ DNA/D S+ANT ICH+C EN... anti-centrom ere B antibodies <0.2 Not Available [facility] ([facility]) [address] [place], [address], 06/23/2024 13:12:24 06/12/20 24 06/15/2024 MAGNUS+C 3+C4+ DNA/D S+ANT ICH+C EN... see below: Commen t Autoa ntibo dy Disea se Assoc iatio n ----- ----- ----- ----- ----- ----- ----- ----- ----- ----- ----- ----- Donali corwin Jameel mcneillrylie ----- ----- ----- ----- - ----- ----- [...] ----- ----- ----- ----- --- ----- ---- PETROLEUM GEOLOGIST Mixed Conne ctive Tissu e Disea se 95% (U1 nRNP, SLE 30 - 50% anti- ribon ucleo prote in) Polym yosit is and/o r [place] tomyo sitis 20% ----- ----- ----- ----- - ----- ----- ----- ----- ---- ----- ---- Scl-7 0 (anti DNA Scler oderm a (diff use) 20 - 35% topoi alea ase) Crest 13% ----- ----- ----- ----- - ----- ----- ----- ----- ---- ----- ---- Hellen-1 Polym yosit is and/o r [place] tomyo sitis 20 - 40% ----- ----- ----- ----- - ----- ----- ----- ----- ---- ----- ---- Centr omere B Scler oderm a - Crest varia nt 80% Not Available [facility] ([facility]) [address] [place], [address], 06/23/2024 13:12:24 06/12/20 24 06/16/2024 MAGNUS+C 3+C4+ DNA/D S+ANT ICH+C EN... complement C3, serum 225 mg/dL 82-167 above high normal Not Available [facility] ([facility]) [address] [place], [address], 06/23/2024 13:12:24 06/12/20 24 06/16/2024 MAGNUS+C 3+C4+ DNA/D S+ANT ICH+C EN... complement C4, serum 22 mg/dL 12-38 Not Available [facility] ([facility]) [address], [place], [address], 06/23/2024 13:12:24 06/12/20 24 06/15/2024 BRIDGER BRIDGER direct POSITI VE negati ve abnormal Not Available [facility] ([facility]) [address], [place], [address], 06/23/2024 13:12:25 06/12/20 24 06/12/2024 ANTIP HOSPH [...] and PS are based [facility] data stand ardiz ed to [...] ----- ----- ----- ----- Not Available [facility] ([facility]) [address], [place], [address], 06/23/2024 13:12:26 06/12/20 24 06/23/2024 ANTIP HOSPH OLIPI D ANTIB ROSETTE specimen status COMMEN T [facility] t sent via fax. Not Available [facility] ([facility]) [address] [place], [address], 06/23/2024 13:12:26 06/12/20 24 06/13/2024 LIPID PANEL cholesterol, total 168 mg/dL 100-19 9 Not Available [facility] ([facility]) [address] [place], [address], 06/23/2024 13:12:27 06/12/20 24 06/13/2024 LIPID PANEL triglyceride s 151 mg/dL 0-149 above high normal Not Available [facility] ([facility]) [address] [place], [address], 06/23/2024 13:12:27 06/12/20 24 06/13/2024 LIPID PANEL HDL cholesterol 41 mg/dL >39 Not Available [facility] ([facility]) [address] [place], [address], 06/23/2024 13:12:27 06/12/20 24 06/13/2024 LIPID PANEL VLDL cholesterol gretchen 27 mg/dL 5-40 Not Available [facility] ([facility]) [address] [place], [address], 06/23/2024 13:12:27 06/12/20 24 06/13/2024 LIPID PANEL LDL chol calc ([facility]) 100 mg/dL 0-99 above high normal Not Available [facility] ([facility]) [address] [place], [address], 06/23/2024 13:12:27 06/12/20 24 06/13/2024 COMP. METAB OLIC PANEL (14) glucose 107 mg/dL 70-99 above high normal Not Available [facility] ([facility]) [address] [place] [place], [address], 06/23/2024 13:12:28 06/12/20 24 06/13/2024 COMP. METAB OLIC PANEL (14) BUN 18 mg/dL 8-27 Not Available [facility] ([facility]) [address], [place], [address], 06/23/2024 13:12:28 06/12/20 24 06/13/2024 COMP. METAB OLIC PANEL (14) creatinine 1.13 mg/dL 0.57-1 .00 above high normal Not Available [facility] ([facility]) [address], [place], [address], 06/23/2024 13:12:28 06/12/20 24 06/13/2024 COMP. METAB OLIC PANEL (14) eGFR 52 mL/mi n/1.7 3 >59 below low normal Not Available [facility] ([facility]) [address] [place] [place], [address], 06/23/2024 13:12:28 06/12/20 24 06/13/2024 COMP. METAB OLIC PANEL (14) BUN/creatini ne ratio 16 -28 Not Available [facility] ([facility]) [address] [place], [address], 06/23/2024 13:12:28 06/12/20 24 06/13/2024 COMP. METAB OLIC PANEL (14) sodium 142 mmol/ L 134-14 4 Not Available [facility] ([facility]) [address] [place] [place], [address], 06/23/2024 13:12:28 06/12/20 24 06/13/2024 COMP. METAB OLIC PANEL (14) potassium 4.5 mmol/ L 3.5-5. 2 Not Available [facility] ([facility]) [address], [place], [address], 06/23/2024 13:12:28 06/12/20 24 06/13/2024 COMP. METAB OLIC PANEL (14) chloride 102 mmol/ L 96-106 Not Available [facility] ([facility]) [address], [place], [address], 06/23/2024 13:12:28 06/12/20 24 06/13/2024 COMP. METAB OLIC PANEL (14) carbon dioxide, total 27 mmol/ L 20-29 Not Available [facility] ([facility]) [address] [place], [address], 06/23/2024 13:12:28 06/12/20 24 06/13/2024 COMP. METAB OLIC PANEL (14) calcium 9.2 mg/dL 8.7-10 .3 Not Available [facility] ([facility]) [address], [place], [address], 06/23/2024 13:12:28 06/12/20 24 06/13/2024 COMP. METAB OLIC PANEL (14) protein, total 7.6 g/dL 6.0-8. 5 Not Available [facility] ([facility]) [address] [place], [address], 06/23/2024 13:12:28 06/12/20 24 06/13/2024 COMP. METAB OLIC PANEL (14) albumin 4.1 g/dL 3.9-4. 9 Not Available [facility] ([facility]) [address] [place], [address], 06/23/2024 13:12:28 06/12/20 24 06/13/2024 COMP. METAB OLIC PANEL (14) globulin, total 3.5 g/dL 1.5-4. 5 Not Available [facility] ([facility]) [address] [place], [address], 06/23/2024 13:12:28 06/12/20 24 06/13/2024 COMP. METAB OLIC PANEL (14) bilirubin, total 0.7 mg/dL 0.0-1. 2 Not Available [facility] ([facility]) [address], [place], [address], 06/23/2024 13:12:28 06/12/20 24 06/13/2024 COMP. METAB OLIC PANEL (14) alkaline phosphatase 74 IU/L 44-121 Not Available [facility] ([facility]) [address] [place], [address], 06/23/2024 13:12:28 06/12/20 24 06/13/2024 COMP. METAB OLIC PANEL (14) AST (SGOT) 32 IU/L 0-40 Not Available [facility] ([facility]) [address], [place], [address], 06/23/2024 13:12:28 06/12/20 24 06/13/2024 COMP. METAB OLIC PANEL (14) ALT (SGPT) 29 IU/L 0-32 Not Available [facility] ([facility]) [address] [place], [address], 06/23/2024 13:12:28 06/12/20 24 06/13/2024 MICRO SCOPI C EXAMI NATIO N WBC >30 /hpf 0-5 abnormal Not Available [facility] ([facility]) [address], [place], [address], 06/23/2024 13:12:30 06/12/20 24 06/13/2024 MICRO SCOPI C EXAMI NATIO N RBC 0-2 /hpf 0-2 Not Available [facility] ([facility]) [address], [place], [address], 06/23/2024 13:12:30 06/12/20 24 06/13/2024 MICRO SCOPI C EXAMI NATIO N epithelial cells (non renal) 0-10 /hpf 0-10 Not Available [facility] ([facility]) [address], [place], [address], 06/23/2024 13:12:30 06/12/20 24 06/13/2024 MICRO SCOPI C EXAMI NATIO N casts None seen /lpf nonese en Not Available [facility] ([facility]) [address], [place], [address], 06/23/2024 13:12:30 06/12/20 24 06/13/2024 MICRO SCOPI C EXAMI NATIO N bacteria Many nonese en/few abnormal Not Available [facility] ([facility]) [address], [place], [address], 06/23/2024 13:12:30 06/12/20 24 06/13/2024 UA WITH CULTU RE REFLE X specific gravity 1.019 1.005- 1.030 Not Available [facility] ([facility]) [address], [place], [address], 06/23/2024 13:12:30 06/12/20 24 06/13/2024 UA WITH CULTU RE REFLE X pH 6.5 5.0-7. 5 Not Available [facility] ([facility]) [address], [place], [address], 06/23/2024 13:12:30 06/12/20 24 06/13/2024 UA WITH CULTU RE REFLE X urine-color YELLOW yellow Not Available [facility] ([facility]) [address], [place], [address], 06/23/2024 13:12:30 06/12/20 24 06/13/2024 UA WITH CULTU RE REFLE X appearance CLOUDY clear abnormal Not Available [facility] ([facility]) [address], [place], [address], 06/23/2024 13:12:30 06/12/20 24 06/13/2024 UA WITH CULTU RE REFLE X WBC esterase 2+ negati ve abnormal Not Available [facility] ([facility]) [address], [place], [address], 06/23/2024 13:12:30 06/12/20 24 06/13/2024 UA WITH CULTU RE REFLE X protein 2+ negati ve/tra ce abnormal Not Available [facility] ([facility]) [address], [place], [address], 06/23/2024 13:12:30 06/12/20 24 06/13/2024 UA WITH CULTU RE REFLE X glucose NEGATI VE negati ve Not Available [facility] ([facility]) [address], [place], [address], 06/23/2024 13:12:30 06/12/20 24 06/13/2024 UA WITH CULTU RE REFLE X ketones NEGATI VE negati ve Not Available [facility] ([facility]) [address] [place], [address], 06/23/2024 13:12:30 06/12/20 24 06/13/2024 UA WITH CULTU RE REFLE X occult blood TRACE negati ve abnormal Not Available [facility] ([facility]) [address] [place], [address], 06/23/2024 13:12:30 06/12/20 24 06/13/2024 UA WITH CULTU RE REFLE X bilirubin NEGATI VE negati ve Not Available [facility] ([facility]) [address], [place], [address], 06/23/2024 13:12:30 06/12/20 24 06/13/2024 UA WITH CULTU RE REFLE X urobilinogen ,semi-qn 1.0 mg/dL 0.2-1. 0 Not Available [facility] ([facility]) [address], [place], [address], 06/23/2024 13:12:30 06/12/20 24 06/13/2024 UA WITH CULTU RE REFLE X nitrite, urine POSITI VE negati ve abnormal Not Available [facility] ([facility]) [address], [place], [address], 06/23/2024 13:12:30 06/12/20 24 06/13/2024 UA WITH CULTU RE REFLE X microscopic examination SEE BELOW: Micro scopi c was indic ated and was perfo rmed. Not Available [facility] ([facility]) [address], [place], [address], 06/23/2024 13:12:30 06/12/20 24 06/13/2024 UA WITH CULTU RE REFLE X urinalysis reflex COMMEN T This speci men has refle xed to a Urine Cultu re. Not Available [facility] ([facility]) [address], [place], [address], 06/23/2024 13:12:30 06/12/20 24 06/19/2024 FACTO R [...] Facto r V Leide n (PMID : 58856 767). Addit ional risk facto rs inclu [...] ders to discu ss resul ts at [phone] [phone] (9683 ). Test Detai ls: Varia nt Kaela zed: c.160 1G>A (p. Arg53 4Gln) , refer red to as Facto r V Leide n Metho ds/Li mitat ions: DNA kaela sis of the F5 gene (NM_0 [id number] .[id number]) was perfo rmed by PCR ampli [...] e syeda cteri stics deter mined by [facility]. It has not been clear ed or appro shannon by the Food and Drug Admin istra tion. Refer ences : Emily S, Saturnino luna [place], Anthony Luna, Cherie MUNOZ, Tra in ; ACMG Profe ssion al Pract ice and Guide lines Commi ttee. Adden dum: Taras can Colle ge of Medic al Pardeep ics conse nsus state ment on facto r V Leide n mutat ion testi ng. Pardeep Med. 2020Oct 14. doi: 10.10 38/s4 1436- 021-0 1108- x. PMID: 62761 767. Robert SORENSEN. Facto r V Leide n Throm bophi neisha. 1998December 23 (Upda eduardo 2017Aug 15). In: Rajinder MP, Shyann russell HH, Irvin RA, et al., umang rs. GeneR cordell sebastian(R) (Inte rnet) . Gary marx ([place]): [facility] Boo jasminesusy marx; 1992- 2020. Avail able from: https ://ww w.ncb i.nlm .nih. gov/b ooks/ NBK13 68/ Rakan S, Saturnino luna AK, Deshawn X, Shemar B, Spect or EB, Itzel P, Cara armando CS; [facility] Labor atory Quali ty Assur ance Commi ttee. Venou s throm boemb olism labor atory testi ng (fact or V Leide n and facto r II c.*97 G>A), 2018 updat e: a techn ical stand rip of the Taras Razo ge of Medic al [facility]ardeep [facility] and Genom [employer] ([facility] ). Pardeep Med. 2017;2 012) :1489 -1498 . doi: 10.10 /s4 1436- 018-0 322-z . Epub 2017May 16. PMID: 04543 698. Not Available [facility] ([facility]) [address] [place], [address], 06/23/2024 13:12:32 06/12/20 24 06/19/2024 FACTO R V LEIDE N MUTAT ION reviewed by: SARAH Olivares Techn ical [place] nent perfo rmed at [facility]P Kobe shaw al [place] nent perfo rmed by: Labor atory Corpo ratio n of Ameri ca Holdi ngs Kevin calhoun, Ph.D. , [facility] Dire tor, Molec ular Pardeep ics [address] [place] [address] Not Available [facility] ([facility]) [address] [place], [address], 06/23/2024 13:12:32 06/12/20 24 06/13/2024 HOMOC YST(E )INE homocyst(E)i ne 13.7 umol/ L 0.0-17 .2 Not Available [facility] ([facility]) [address] [place], [address], 06/23/2024 13:12:33 06/12/20 24 06/13/2024 VITAM IN B12 AND FOLAT E vitamin B12 349 pg/mL 232-12 45 Not Available [facility] ([facility]) [address] [place], [address], 06/23/2024 13:12:34 06/12/20 24 06/13/2024 VITAM IN B12 AND FOLAT E folate (folic acid), serum 7.0 NG/mL >3.0 A serum folat e tushar ntrat ion of less than 3.1 ng/mL is consi dered to repre sent clini gretchen defic iency . Not Available [facility] ([facility]) [address], [place], [address], 06/23/2024 13:12:34 06/12/20 24 06/13/2024 HEMOG LOBIN A1C hemoglobin A1C 6.5 % 4.8-5. 6 above high normal Predi abete s: 5.7 - 6.4 Diabe bashir: >6.4 Glyce terrell contr ol for adult s with diabe bashir: <7.0 Not Available [facility] ([facility]) [address], [place], [address], 06/23/2024 13:12:35 06/12/20 24 06/13/2024 TSH TSH 0.019 uIU/m L 0.450- 4.500 below low normal Not Available [facility] ([facility]) [address] [place], [address], 06/23/2024 13:12:36 06/12/2006/13/2024 INSUL IN insulin 25.3 uIU/m L 2.6-24 .9 above high normal Not Available [facility] ([facility]) [address], [place], [address], 06/23/2024 13:12:37 06/12/20 24 06/13/2024 CBC WITH DIFFE RENTI AL/PL ATELE T WBC 5.4 x10e3 /uL 3.4-10 .8 Not Available [facility] ([facility]) [address], [place], [address], 06/23/2024 13:12:39 06/12/20 24 06/13/2024 CBC WITH DIFFE RENTI AL/PL ATELE T RBC 5.30 x10e6 /uL 3.77-5 .28 above high normal Not Available [facility] ([facility]) [address], [place], [address], 06/23/2024 13:12:39 06/12/20 24 06/13/2024 CBC WITH DIFFE RENTI AL/PL ATELE T hemoglobin 14.0 g/dL 11.1-1 5.9 Not Available [facility] ([facility]) [address] [place], [address], 06/23/2024 13:12:39 06/12/20 24 06/13/2024 CBC WITH DIFFE RENTI AL/PL ATELE T hematocrit 44.1 % 34.0-4 6.6 Not Available [facility] ([facility]) [address] [place], [address], 06/23/2024 13:12:39 06/12/20 24 06/13/2024 CBC WITH DIFFE RENTI AL/PL ATELE T MCV 83 fL 79-97 Not Available [facility] ([facility]) [address] [place], [address], 06/23/2024 13:12:39 06/12/20 24 06/13/2024 CBC WITH DIFFE RENTI AL/PL ATELE T MCH 26.4 pg 26.6-3 3.0 below low normal Not Available [facility] ([facility]) [address], [place], [address], 06/23/2024 13:12:39 06/12/20 24 06/13/2024 CBC WITH DIFFE RENTI AL/PL ATELE T MCHC 31.7 g/dL 31.5-3 5.7 Not Available [facility] ([facility]) [address], [place], [address], 06/23/2024 13:12:39 06/12/20 24 06/13/2024 CBC WITH DIFFE RENTI AL/PL ATELE T RDW 14.6 % 11.7-1 5.4 Not Available [facility] ([facility]) [address], [place], [address], 06/23/2024 13:12:39 06/12/20 24 06/13/2024 CBC WITH DIFFE RENTI AL/PL ATELE T platelets 186 x10e3 /uL 150-45 0 Not Available [facility] ([facility]) [address], [place], [address], 06/23/2024 13:12:39 06/12/20 24 06/13/2024 CBC WITH DIFFE RENTI AL/PL ATELE T neutrophils 58 % notest ab. Not Available [facility] ([facility]) [address] [place], [address], 06/23/2024 13:12:39 06/12/20 24 06/13/2024 CBC WITH DIFFE RENTI AL/PL ATELE T lymphs 32 % notest ab. Not Available [facility] ([facility]) [address] [place], [address], 06/23/2024 13:12:39 06/12/20 24 06/13/2024 CBC WITH DIFFE RENTI AL/PL ATELE T monocytes 7 % notest ab. Not Available [facility] ([facility]) [address], [place], [address], 06/23/2024 13:12:39 06/12/20 24 06/13/2024 CBC WITH DIFFE RENTI AL/PL ATELE T eos 2 % notest ab. Not Available [facility] ([facility]) [address], [place], [address], 06/23/2024 13:12:39 06/12/20 24 06/13/2024 CBC WITH DIFFE RENTI AL/PL ATELE T basos 1 % notest ab. Not Available [facility] ([facility]) [address], [place], [address], 06/23/2024 13:12:39 06/12/20 24 06/13/2024 CBC WITH DIFFE RENTI AL/PL ATELE T neutrophils (absolute) 3.1 x10e3 /uL 1.4-7. 0 Not Available [facility] ([facility]) [address], [place], [address], 06/23/2024 13:12:39 06/12/20 24 06/13/2024 CBC WITH DIFFE RENTI AL/PL ATELE T lymphs (absolute) 1.7 x10e3 /uL 0.7-3. 1 Not Available [facility] ([facility]) [address], [place], [address], 06/23/2024 13:12:39 06/12/20 24 06/13/2024 CBC WITH DIFFE RENTI AL/PL ATELE T monocytes(ab solute) 0.4 x10e3 /uL 0.1-0. 9 Not Available [facility] ([facility]) [address] [place], [address], 06/23/2024 13:12:39 06/12/20 06/13/2024 CBC WITH DIFFE RENTI AL/PL ATELE T eos (absolute) 0.1 x10e3 /uL 0.0-0. 4 Not Available [facility] ([facility]) [address] [place], [address], 06/23/2024 13:12:39 06/12/20 24 06/13/2024 CBC WITH DIFFE RENTI AL/PL ATELE T baso (absolute) 0.0 x10e3 /uL 0.0-0. 2 Not Available [facility] ([facility]) [address] [place] [place], [address], 06/23/2024 13:12:39 06/12/20 24 06/13/2024 CBC WITH DIFFE RENTI AL/PL ATELE T immature granulocytes 0 % notest ab. Not Available [facility] ([facility]) [address], [place], [address], 06/23/2024 13:12:39 06/12/20 24 06/13/2024 CBC WITH DIFFE RENTI AL/PL ATELE T immature grans (abs) 0.0 x10e3 /uL 0.0-0. 1 Not Available [facility] ([facility]) [address] [place], [address], 06/23/2024 13:12:39 06/12/20 24 06/13/2024 SEDIM ENTAT ION RATE- WESTE RGREN sedimentatio n rate-westerg andrey 48 mm/HR 0-40 above high normal Not Available [facility] ([facility]) [address] [place], [address], 06/23/2024 13:12:40 06/12/20 24 06/13/2024 RHEUM ATOID FACTO R (RF) rheumatoid factor (rf) <10.0 IU/mL <14.0 Not Available [facility] ([facility]) [address] [place], [address], 06/23/2024 13:12:41 06/12/20 24 06/13/2024 C-ZOEY CTIVE PROTE IN, QUANT C-reactive protein, quant 21 mg/L 0-10 above high normal Not Available [facility] ([facility]) [address], [place], [address], 06/23/2024 13:12:42 06/12/20 24 06/16/2024 URINE CULTU RE, ROUTI NE urine culture, routine Final report abnormal Not Available [facility] ([facility]) [address], [place], [address], 06/23/2024 13:12:44 06/12/20 24 06/16/2024 URINE CULTU [...] ng units per mL Not Available [facility] ([facility]) [address], [place], [address], 06/23/2024 13:12:44 06/12/20 24 06/16/2024 URINE CULTU [...] thopr im/Villalobos lfa S Not Available [facility] ([facility]) [address] [place], [address], 06/23/2024 13:12:44 06/12/20 24 06/13/2024 TRIIO DOTHY CELESTINE E (T3), FREE triiodothyro nine (T3), free 3.5 pg/mL 2.0-4. 4 Not Available [facility] ([facility]) [address] [place], [address], 06/23/2024 13:12:44 06/12/20 24 06/13/2024 T4,FR EE(DI RECT) T4,free(dire ct) 1.41 NG/dL 0.82-1 .77 Not Available [facility] ([facility]) [address] [place], [address], 06/23/2024 13:12:46 06/12/20 24 06/13/2024 VITAM IN [...] Erica jasmine DC: The [facility] . 2. Nnamdi johnston MF, Deniz villegas NC, Abilio off-F errar i DANIEL, et al. Evalu ation , treat ment, and preve ntion of vitam in D defic iency : an Endoc rine Socie ty clini gretchen pract ice guide line. JCEM. 2010; 96(7) :1911 -30. Not Available [facility] ([facility]) [address], [place], [address], 06/23/2024 13:12:47 07/17/20 24 07/17/2024 COLOG UARD cologuard result reportable NEGATI VE negati ve normal NEGAT MIN TEST RESUL T. A negat min Colog uard resul t indic ates a low likel ihood that a color ectal cance r (CRC) or advan mike adeno ma (polo omato us polyp s with more advan mike pre-m align ant featu res) is prese nt. The nemours foundation e that a perso n with a [...] of 10,00 0 indiv idual s at pound ge risk for color ectal cance r who were scree jus with both Colog uard and colon oscop y. (Zak Olivares. et al, N Engl J Med 2014; 370(1 4):12 86-12 97) The oskar l value (refe rence range ) for this assay is negat min. COLOG UARD RE-SC REENI NG RECOM MENDA TION: Perio dic color ectal cance r scree leonel is an impor tant part of preve ntive healt hcare for asymp tomat ic indiv idual s at pound ge risk for color ectal cance r. [...] ectal Cance r Scree leonel , Felicity snyder rolog y 2017; 112:1 016-1 030. TEST DESCR IPTIO N: [place] site algor ithmi c kaela sis of [...] years or older , who are at [facility] for color ectal cance r (CRC) . Colog uard has been appro shannon for use by the U.[place]. FDA. The perfo rmanc e of Colog uard was estab lishe d in a cross secti onal study of [facility] adult s aged 50-84 . Colog uard [...] a prosp ectiv e cross -sect ional hussein castaneda study of 0 indiv idual s at pound ge risk for color ectal cance r [...] cance r). The curre nt Colog uard scretal castaneda inter kenny is every 3 years . [...] at www.c teriu rip.c om. Not Available [facility] (Cologuard Orders Only) [address], [place], [address], 07/24/2024 01:04:44 09/08/19 25 09/08/2024 US, thyro id No observ ation record ed. [facility] [address], [place], [address], 09/09/2024 11:58:44 09/16/19 25 09/16/2024 MAMMO , hussein castaneda, digit al, bilat eral No observ ation record ed. [email or web address] [facility] [address] [facility], [place], [address], 09/16/2024 23:33:41 Result Notes None recorded. Problems Name Problem SNOMED Code Status Onset Date Resolution Date Notes Provider Name and Address Organization Details Recorded Time Body mass index 40+ - severely obese 816642529 Active 2023 FREDDY Vasques, [place] - [facility] 4 11:02:32 Morbid obesity 396732022 Active 2023 FREDDY [place] [facility] 4 11:02:33 Joint pain 89427409 Active 2023 FREDDY [place] [facility] 4 11:02:34 Non-alcoho lic fatty liver 584364242 Active 2023 FREDDY [place] [facility] 4 11:02:34 Vitamin D deficiency 26711629 Active 2023 FREDDY [place] [facility] 4 11:02:35 Gastroesop hageal reflux disease without esophagiti s 800329342 Active 2023 FREDDY [place] [facility] 4 11:02:40 Serum vitamin B12 below reference range 442027670 Active 2023 FREDDY [place] [facility] 4 11:02:41 History of deep vein thrombosis 887189160 Active 2023 x3 according to patient never recommende d to be on chronic anticoagul ation saw hematologi st in past Demetrius Lew MD Attn: Puma osborne,[address] [facility], [place], [address], [place] - [facility] 4 17:58:06 Screening for malignant neoplasm of colon Active 2023 FREDDY [place] [facility] 4 11:04:36 Screening mammograph y Active 2023 FREDDY [place] [facility] 4 11:04:37 Polycystic ovary syndrome 191895926 Active 2023 Raúl Grissom MA null, [facility] 4 11:12:48 Thyroid nodule 935889886 Active 2024 Raúl Grissom MA null, [facility] 5 11:59:02 Problem Notes None recorded. Procedures Surgical History Date Name Laterality Status Provider Name and Address Organization Details Recorded Time 08/12/19 10 Gastrointestinal Surgery completed [facility], [facility] 06/12/2024 10:42:50 08/12/19 10 Hernia Repair completed [facility], [facility] 06/12/2024 10:43:20 08/12/18 99 Hernia Repair completed [facility], [facility] 06/12/2024 10:43:16 08/12/18 86 Gastric Bypass completed [facility] 06/12/2024 10:41:25 08/12/18 76 Cholecystectomy completed [facility] 06/12/2024 10:41:03 08/12/18 76 Gastrointestinal Surgery completed [facility], [facility] 06/12/2024 10:42:44 08/12/18 63 Tonsillectomy completed [facility] 06/12/2024 10:48:49 08/12/18 60 Tonsillectomy completed [facility], [facility] 06/12/2024 10:44:21 Imaging Results Imaging Date Name Status LastModified by Organiz ation Details LastModified Time 09/08/2024 US, thyroid completed [facility] [address], [place], [address], 09/09/2024 11:58:44 09/16/2024 MAMMO, screening, digital, bilateral active [facility] [address] [place], [address], 09/16/2024 23:33:41 Procedure Notes None recorded. Medical Equipment None Reported. Allergies Allergen ID Allergen Name Allergen Category Reaction Reaction Severity Criticality Documentation Date Start Date Code Code System Note Provider Name and Address Organization Details Recorded Time 331377 Demerol medicatio n Not available Not available Not available 06/12/2024 67003 1 RxNorm Not Available Not Available Not Available 319750 shellfish derived food,medi cation Not available Not available Not available 06/12/2024 57746 UNK Not Available Not Available Not Available 927994 Naprosyn medicatio n Not available Not available Not available 06/12/2024 74558 2 RxNorm Not Available Not Available Not Available 905207 codeine medicatio n Not available Not available Not available 06/12/2024 2670 RxNorm Not Available Not Available Not Available 028841 Robaxin medicatio n Not available Not available Not available 06/12/2024 13091 5 RxNorm Not Available Not Available Not Available 926771 erythromy eitan medicatio n Not available Not available Not available 06/12/2024 4053 RxNorm Not Available Not Available Not Available 082135 latex environme nt,medica tion Not available Not available Not available 06/12/2024 81810 91 RxNorm Not Available Not Available Not [...] Updated DateTime 4 165.1 cm 53.8 kg/m2 443734. 13 g 88 /min 95 % 95 % 130 mm[Hg] 88 mm[Hg] Yanci Virgen [facility] 4 10:15:51 Social History Question Answer Notes LastModified by Organizat ion Details LastModified Time Tobacco Smoking Status Former Smoker Yanci Virgen MA null, [place] - [facility] 06/12/2024 10:18:40 Do You Have [...] SNOMED-CT Code Diagnosis ICD10 Code Diagnosis Note [id number] MD Shani Douglas (Adult Med) [address] [place] [phone] 06/12/2024 09:48:33 06/12/2024 11:00:39 Body mass index 40+ - severely obese 621861551 Z68.43 Morbid obesity 428350915 E66.01 Joint pain 24501550 M25. 50 Non-alcoho lic fatty liver 726409052 K76.0 Vitamin D deficiency 347 99631 E55.9 Serum alondra min B12 below reference range 767733320 R79.89 Gastroesop hageal reflux disease without esophagitis 004079195 K21.9 Screening mammography 24 057576 Z12.31 Screening for malignant neoplasm of colon 765703969 Z12.11 History of deep vein thrombosis 929692836 Z86.718 Polycystic ovary syndrome 621638575 E28.2 Screening for cardiovascular system disease 824646926 Z13.6 Long-term drug therapy 607707346 Z79.891 Fatigue 57947044 R53.83 Abdominal pain 14151329 R10.9 Influenza vaccination declined 182094618 Z28.21 SARS-CoV-2 vaccination declined 3792699434 Z28.21 Health Concerns Section Related Observation LastModified by Organization Detai ls LastModified Time None Recorded Concern Status LastModified by Organization Details LastModified Time None Recorded Advance Directives Directive N: Payers Encounter Date Sequence Insurance Name Policy Number Policy Durbin Covered Member ID Durbin Member ID Guarantor Name 06/12/2024 1 [employer] [facility] - DUAL (MEDICARE - MEDICAID REPLACEMENT HMO) Ally Ayala [id number] Ally Ayala Notes Date Note Type Note [...] with. Demetrius Lew MD Attn: Accounting,[address] [facility], [place], [address], [facility] 06/13/2024 17:59:15 OBGyn Episode No OBEpisode recorded.
--- OUTSIDE RECORDS SUMMARY | 2024-09-18 10:33 | XMS_ITS | Encounter Summary ---
Author Organization [facility] Address [address] [place] [address] Care Team Providers Care Spring Bender Name Role Phone Martha Arriaga MD Primary Care Provid er Encounter Details Date Type Department Care Team (Latest Contact Info) Description 12/22/2004 Outpatient Historical [facility] [address] [place] [address] Luis Carlos Saldaña OPEN WOUND KNEE/LEG-COMPL (Primary Dx) Social History Tobacco Use Types Packs/Day Years Used Date Smoking Tobacco: Never Assessed Comments Unknown Sex and Gender Information Value Date Recorded Sex Assigned at Not on file Legal 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
--- OUTSIDE RECORDS SUMMARY | 2024-09-18 10:33 | XMS_ITS | Encounter Summary ---
Author Organization [employer] Address 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
--- OUTSIDE RECORDS SUMMARY | 2024-09-18 10:33 | XMS_ITS | Encounter Summary ---
Author Organization [facility] Address [address] [place] [address] Care Team Providers Care Equipment Planner Name Role Phone Martha Arriaga MD Primary Care Provid er Encounter Details Date Type Department Care Team ([facility] st Contact Info) Description 06/07/2004 Outpatient Historical [facility] Internal Medicine - [place] [address] [place] [phone] [place]ashawn Saldaña [place] [address] [place] [place] [phone] Social History Tobacco Use Types Packs/Day Years Used Date Smoking Tobacco: Never Assessed Comments Unknown Sex and Gender Information Value Date Recorded Sex Assigned at Not on file Legal Sex Female 3:23 AM OPTICAL LENS MANUFACTURING TECH Gender Identity Not on file Sexual [...] on filedocumented in this encounter Care Teams Equipment Planner Relationship Specialty Start Date End Date Martha Arriaga MD PCP - General Internal Medicine 05/10/20 documented as of this encounter
--- OUTSIDE RECORDS SUMMARY | 2024-09-18 10:33 | XMS_ITS | Encounter Summary ---
Author Organization [employer] Address 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
--- OUTSIDE RECORDS SUMMARY | 2024-09-18 10:33 | XMS_ITS | Clinical Summary ---
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 DICTATION LOCATION: [facility] TECHNIQUE: Full-field digital craniocaudal and mediolateral oblique [...] Most Recently Relevant to Health Maintenance Insurance [facility] [id number] Care Teams Advisory Application Developer Relationship Specialty Start Date End Date Martha Arriaga MD PCP - General Internal Medicine 05/10/20
--- OUTSIDE RECORDS SUMMARY | 2024-09-18 10:33 | XMS_ITS | Encounter Summary ---
Author Organization [facility] Address [address] [place] [address] Care Team Providers Care Top Trimmer Name Role Phone Martha Arriaga MD Primary Care Provid er Encounter Details Date Type Department Care Team (Late st Contact Info) Description 10/27/2002 Outpatient Historical [facility] Internal Medicine - [place] [address] [place] [phone] Lashawn Saldaña [place] [address] [place] [address] Social History Tobacco Use Types Packs/Day Years Used Date Smoking Tobacco: Never Assessed Comments Unknown Sex and Gender Information Value Date Recorded Sex Assigned at Not on file Legal Sex Female 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
--- OUTSIDE RECORDS SUMMARY | 2024-09-18 10:33 | XMS_ITS | Clinical Summary ---
Author Organization [facility] [employer] Address [address] [place] [address] Care Team Providers Care Automatic Data Processing Planner Name Role Phone Janny Torres MD Unavailable [phone] Noé Lew MD Primary Care Provider Source Comments [facility],non-owned Affiliates and Associated Physician Practices is amultiple site organization consisting of ambulatory clinics and hospital sitesin [place], [place], [place] and [place]. This disclosure is being madepursuant to the Care Everywhere program and may not contain all information available regarding this patient. Last updated 18.[facility] [employer] Allergies Active Allergy Reactions Criticality Noted Date [...] Status vitamin D, ergocalciferol, (Drisdol) 1.25 MG (33651 UT) capsule 1 (one) capsule every 7 [...] Department Care Team Description 09/07/2024 10:00 AM WOOD SETTER Office Visit [facility] - Rheumatology [address] [facility], [place] [address] Gaby Lion MD Ribonucleoprotein antibody positive (Primary Dx) 09/07/2024 Travel 08/26/2024 Travel 07/04/2024 3:41 PM WOOD SETTER - 07/04/2024 11:59 PM WOOD SETTER Hospital Encounter [facility] Health Imaging Services - [facility] Scan [facility] [place] [address] Discharge Disposition: Home or Self Care from [...] Sex Assigned at Female 07/19/2022 2:59 PM WOOD SETTER Gender Identity Female 07/19/2022 2:59 PM WOOD SETTER Sexual Orientation Straight 07/19/2022 2: 59 PM WOOD SETTER Travel History Travel Start Travel End [place] 09/07/2024 09/07/2024 Last Filed Vital Signs Vital Sign Reading Time Taken Comments Blood Pressure 151/94 09/07/2024 9:55 AM WOOD SETTER Pulse 90 09/07/2024 9:55 AM WOOD SETTER Temperature 36.6 C (97.9 F) 09/07/2024 9:55 AM WOOD SETTER Respiratory Rate 14 05/16/2023 11:17 AM CDT Oxygen Saturation 92% 09/07/2024 9:55 AM WOOD SETTER Inhaled Oxygen Concentration - - Weight 150.1 kg (331 lb) 09/07/2024 9:55 AM WOOD SETTER Height 165.1 cm (5' 5 ) 09/07/2024 9:55 AM WOOD SETTER Body Mass Index 55.08 09/07/2024 9:55 AM WOOD SETTER Plan of Treatment Upcoming Encounters Date Type Department Care Team (Late st Contact Info) Description 05/06/2025 10:00 AM CDT Office Visit [facility] - Urology [address] [...] this topic Medical Devices Implanted Type Area Manager Intel Device Identifier Shelf Expiration Date Model / Serial / Lot Stent Uret 6fr 22-30cm Pgtl Crv Tpr Tip Implanted:Qty: 1 on 10/05/2022 by Janny Torres MD at [facility] Right: Ureter [employer] Scimed 06/24/2025 [id number] / / [id number] Procedures Procedure Name Priority Date/Time Associated Diagnosis Comments CT ABDOMEN PELVIS W CONTRAST Routine 07/04/2024 4:27 PM WOOD SETTER Abdominal pain, unspecified abdominal location CREATININE - POCT INTERFACED Routine 07/04/2024 4:06 PM WOOD SETTER BASIC METABOLIC PANEL (CALCIUM TOTAL) TEQUILA 05/16/2023 8:31 AM CDT Right renal stone from Last 3 Months or Most Recently Relevant to Health Maintenance Results * CT Abdomen Pelvis W Contrast (07/04/2024 4:27 PM WOOD SETTER) Anatomical Region Laterality Modality Abdomen, Pelvis Computed Tomogra phy 07/05/2024 9:07 AM WOOD SETTER Impressions 07/05/2024 9:25 AM WOOD SETTER IMPRESSION: 1.Hepatomegaly with steatosis 2.Multiple ventral hernias as described. No bowel obstruction. 3.Decreased collection within the right kidney. Follow-up ultrasound recommended. 4.Nonobstructing left renal calculi 5.Hiatal hernia 6.Right adnexal cyst 7.Cardiomegaly > Interpreting Provider: Deacon Reyna MD on 07/05/2024 9:25 AM Narrative 07/05/2024 9:[address] ABDOMEN WITH CONTRAST CT PELVIS WITH [...] CREATININE - POCT INTERFACED (07/04/2024 4:06 PM WOOD SETTER) Creatinine POCT 0.86 0.70 - 1.20 mg/dL 07/04/2024 4:14 PM WOOD SETTER [facility] eGFR 73(L) >=90 mL/min/1.7 3 m2 07/04/2024 4:14 PM WOOD SETTER [facility] Blood BLOOD SPECIMEN / Unknown 07/04/2024 4:06 PM WOOD SETTER 07/04/2024 4:14 PM WOOD SETTER Provider Unknown LAB - POINT OF CARE ORDERABLES Performing Organization Address City/[facility] Co de Phone Number [facility] [address] [place] [phone] * (ABNORMAL) BASIC METABOLIC PANEL (CALCIUM TOTAL) (05/16/2023 8:31 AM CDT) Glucose 107(H) 70 - 105 mg/dL 05/16/2023 8:55 AM T [facility] Sodium 141 136 - 145 mmol/L 05/16/2023 8:55 AM CDT [facility] Potassium 4.0 3.5 - 5.1 mmol/L 05/16/2023 8:55 AM T [facility] Chloride 102 98 - 107 mmol/L 05/16/2023 8:55 AM CDT [facility] CO2 29 22 - 29 mmol/L 05/16/2023 8:55 AM CDT [facility] Calcium 9.4 8.4 - 10.4 mg/dL 05/16/2023 8:55 AM [facility] Anion Gap 10 6 - 16 mmol/L 05/16/2023 8:55 AM CDT [facility] BUN 20 7 - 26 mg/dL 05/16/2023 8:55 AM CDT [facility] Creatinine 1.37(H) 0.57 - 1.11 mg/dL 05/16/2023 8:55 AM CDT [facility] eGFR by CKD-EPI 42(L) >=90 mL/min/1.7 3 m2 05/16/2023 8:55 AM CDT [facility] Blood BLOOD SPECIMEN / Unknown Venipuncture / Unknown 05/16/2023 8:31 AM CDT 05/16/2023 8:38 AM CDT Chan Sarkar MD LAB - CHEMISTRY KRISTINAE MAHNAZ [facility] Organization Address City/State/ZIP Co de Phone Number [facility] [address] [id number] from Last 3 Months or Most Recently Relevant to Health Maintenance Advance Directives * Full Code (Latest Code Status on File) Date Activated Date Inactivated Comments 10/05/2022 2:55 PM 10/06/2022 3:16 PM * Full Code Date Activated Date Inactivated Comments 01/06/2014 10:09 PM 01/10/2014 2:39 PM Care Teams Automatic Data Processing Planner Relationship Specialty Start Date End Date Noé Lew MD [address] [place] [phone] PCP - General Internal Medicine 07/04/24 Janny Torres MD [id number] [place] [id number] Physician Urology 05/07/24
--- OUTSIDE RECORDS SUMMARY | 2024-09-18 10:33 | XMS_ITS | Encounter Summary ---
Author Organization [facility] Address [address] [place] [address] Care Team Providers Care Mechanical Design Technician Name Role Phone Martha Arriaga MD Primary Care Provid er Encounter Details Date Type Department Care Team (Late st Contact Info) Description 05/15/2004 Outpatient Historical [facility] Internal Medicine - [place] [address] [place] [phone] [place]ashawn Saldaña [place] [address] [place] [phone] Social History Tobacco Use Types Packs/Day Years Used Date Smoking Tobacco: Never Assessed Comments Unknown Sex and Gender Information Value Date Recorded Sex Assigned at Not on file Legal Sex Female 3:23 AM HEALTH WORKERS Gender Identity Not on file Sexual Orientation [...] on filedocumented in this encounter Care Teams Mechanical Design Technician Relationship Specialty Start Date End Date Martha Arriaga MD PCP - General Internal Medicine 05/10/20 documented as of this encounter
--- OUTSIDE RECORDS SUMMARY | 2024-09-18 10:33 | XMS_ITS | Encounter Summary ---
Author Organization [employer] Address [address] [place] [address] Care Team Providers Care Carpet Weaver Name Role Phone Martha Arriaga MD Primary [...] on file Legal Sex Female 3:23 AM MOUNTER SAXOPHONES Gender Identity Not on file Sexual Orientation Not on file documented as of this encounter Plan of Treatment Not on file documented as of this encounter Visit Diagnoses Diagnosis Pain in limb- Primary documented in this encounter Care Teams Carpet Weaver Relationship Specialty Start Date End Date Martha Arriaga MD PCP - General Internal Medicine 05/10/20 documented as of this encounter
--- OUTSIDE RECORDS SUMMARY | 2024-09-18 10:33 | XMS_ITS | Encounter Summary ---
Author Organization [facility] Address [address] [place] [address] Care Team Providers Care Protector Plate Attacher Name Role Phone Martha Arriaga MD Primary Care Provid er Encounter Details Date Type Department Care Team (Late st Contact Info) Description 09/01/2001 Outpatient Historical [facility] Internal Medicine Medical [place] A [facility] [address] [facility] [address] [address] Frankie Raygoza MD NO ADDRESS ON FILE Social History Tobacco Use Types Packs/Day Years Used Date Smoking Tobacco: Never Assessed Comments Unknown Sex and Gender Information Value Date Recorded Sex Assigned at Not on file Legal Sex Female 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
--- OUTSIDE RECORDS SUMMARY | 2024-09-18 10:33 | XMS_ITS | Encounter Summary ---
Author Organization [employer] Address [address] [place] [address] Care Team Providers Care Occasional Caregiver Name Role Phone Martha Arriaga MD Primary [...] on file Legal Sex Female 3:23 AM RUBBER OFF Gender Identity Not on file Sexual Orientation Not on file documented as of this encounter Plan of Treatment Not on file documented as of this encounter Visit Diagnoses Diagnosis Effusion of lower leg joint- Primary documented in this encounter Care Teams Occasional Caregiver Relationship Specialty Start Date End Date Martha Arriaga MD PCP - General Internal Medicine 05/10/20 documented as of this encounter
--- OUTSIDE RECORDS SUMMARY | 2024-09-18 10:33 | XMS_ITS | Encounter Summary ---
Author Organization [facility] Address [address] [place] [address] Care Team Providers Care Neurology Technician Name Role Phone Martha Arriaga MD Primary Care Provid er Encounter Details Date Type Department Care Team (Late st Contact Info) Description 07/25/2004 Outpatient Historical [facility] [address] [place] [phone] [place] [address] [place] [address] Social History Tobacco Use Types Packs/Day Years Used Date Smoking Tobacco: Never Assessed Comments Unknown Sex and Gender Information Value Date Recorded Sex Assigned at Not on file Legal Sex Female 3:23 AM DOOR TO DOOR 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
--- OUTSIDE RECORDS SUMMARY | 2024-09-18 10:33 | XMS_ITS | Encounter Summary ---
Author Organization [facility] Address [address] [place] [address] Care Team Providers Care Friction Welding Machine Operator Name Role Phone Martha Arriaga MD Primary Care Provid er Encounter Details Date Type Department Care Team (Late st Contact Info) Description 07/12/2003 Outpatient Historical [facility] Internal Medicine - [place] [address] [place] [phone] Lashawn Saldaña [place] [address] [place] [address] Social History Tobacco Use Types Packs/Day Years Used Date Smoking Tobacco: Never Assessed Comments Unknown Sex and Gender Information Value Date Recorded Sex Assigned at Not on file Legal Sex Female 3:23 AM COMMISSARY OFFICER Gender Identity Not on file Sexual Orientation Not on file documented as of this encounter Last Filed Vital Signs Vital Sign Reading Time Taken Comments Blood Pressure 118/78 07/12/2003 11:30 AM COMMISSARY OFFICER Pulse 78 07/12/2003 11:30 AM COMMISSARY OFFICER Temperature - - Respiratory Rate - - Oxygen Saturation - - Inhaled Oxygen Concentration - - Weight 120.7 kg (266 lb) 07/12/2003 11:30 AM COMMISSARY OFFICER Height - - Body Mass Index - - documented in this encounter Plan of Treatment Not on file documented as of this encounter Visit Diagnoses Not on filedocumented in this encounter Care Teams Friction Welding Machine Operator Relationship Specialty Start Date End Date Martha Arriaga MD PCP - General Internal Medicine 05/10/20 documented as of this encounter
--- OUTSIDE RECORDS SUMMARY | 2024-09-18 10:33 | XMS_ITS | Encounter Summary ---
Author Organization [employer] Address [address] [place] [address] Care Team Providers Care Near East Archeology Professor Name Role Phone Martha Arriaga MD Primary Care Provid er Encounter Details Date Type Department Care Team (Late st Contact Info) Description 05/12/2004 Outpatient Historical [facility] Ramon Garcia MD [address] [facility] [address] [place] [address] CONTUSION OF KNEE (Primary Dx) Social History Tobacco Use Types Packs/Day Years Used Date Smoking Tobacco: Never Assessed Comments Unknown Sex and Gender Information Value Date Recorded Sex Assigned at Not on file Legal Sex Female 3:23 AM APPLICATIONS SPECIALIST Gender Identity Not on file Sexual Orientation Not on file documented as of this encounter Plan of Treatment Not on file documented as of this encounter Visit Diagnoses Diagnosis Contusion of knee- Primary documented in this encounter Care Teams Near East Archeology Professor Relationship Specialty Start Date End Date Martha Arriaga MD PCP - General Internal Medicine 05/10/20 documented as of this encounter
--- OUTSIDE RECORDS SUMMARY | 2024-09-18 10:33 | XMS_ITS | Encounter Summary ---
Author Organization [facility] Address 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
--- OUTSIDE RECORDS SUMMARY | 2024-09-18 10:33 | XMS_ITS | Encounter Summary ---
Author Organization [facility] Address [address] [place] [address] Care Team Providers Care Network Security Officer Name Role Phone Martha Arriaga MD Primary Care Provid er Encounter Details Date Type Department Care Team (Late st Contact Info) Description 10/30/2001 Outpatient Historical [facility] Internal Medicine Medical [place] [facility] [address] [facility] [address] [place] [phone] Cheikh Tsang MD [address] [facility] [address] [place], [place] [id number] Social History Tobacco Use Types Packs/Day Years Used Date Smoking Tobacco: Never Assessed Comments Unknown Sex and Gender Information Value Date Recorded Sex Assigned at Not on file Legal Sex Female 3:23 AM SAVINGS COUNSELOR Gender Identity Not on file Sexual Orientation Not on file documented as of this encounter Plan of Treatment Not on file documented as of this encounter Visit Diagnoses Not on filedocumented in this encounter Care Teams Network Security Officer Relationship Specialty Start Date End Date Martha Arriaga MD PCP - General Internal Medicine 05/10/20 documented as of this encounter
--- OUTSIDE RECORDS SUMMARY | 2024-09-18 10:33 | XMS_ITS | Encounter Summary ---
Author Organization [facility] Address [address] [place] [address] Care Team Providers Care Financial Operations Clerk Name Role Phone Martha Arriaga MD Primary Care Provid er Encounter Details Date Type Department Care Team (Late st Contact Info) Description 12/22/2004 Outpatient Historical [facility] [place] [address] [place] [address] [place] [address] [place] [address] Social History Tobacco Use Types Packs/Day Years Used Date Smoking Tobacco: Never Assessed Comments Unknown Sex and Gender Information Value Date Recorded Sex Assigned at Not on file Legal Sex Female 3:23 AM POEM WRITER Gender Identity Not on file Sexual Orientation Not on file documented as of this encounter Plan of Treatment Not on file documented as of this encounter Visit Diagnoses Not on filedocumented in this encounter Care Teams Financial Operations Clerk Relationship Specialty Start Date End Date Martha Arriaga MD PCP - General Internal Medicine 05/10/20 documented as of this encounter
--- OUTSIDE RECORDS SUMMARY | 2024-09-18 10:33 | XMS_ITS | Encounter Summary ---
Author Organization [employer] [facility] Address [address] [place] [address] Care Team Providers Care Battery Test Engineer Name Role Phone Martha Arriaga MD Primary Care Provid er Encounter Details Date Type Department Care Team (Latest Contact Info) Description 06/13/2004 Outpatient Historical [facility] [address] [place] [address] HEMANGIOMA NEC (Primary Dx) Social History Tobacco Use Types Packs/Day Years Used Date Smoking Tobacco: Never Assessed Comments Unknown Sex and Gender Information Value Date Recorded Sex Assigned at Not on file Legal Sex Female 3:23 AM SPIRAL BINDER Gender Identity Not on file Sexual Orientation Not on file documented as of this encounter Plan of Treatment Not on file documented as of this encounter Visit Diagnoses Diagnosis Hemangioma of other sites- Primary documented in this encounter Care Teams Battery Test Engineer Relationship Specialty Start Date End Date Martha Arriaga MD PCP - General Internal Medicine 05/10/20 documented as of this encounter
--- OUTSIDE RECORDS SUMMARY | 2024-09-18 10:33 | XMS_ITS | Encounter Summary ---
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
--- OUTSIDE RECORDS SUMMARY | 2024-09-18 10:33 | XMS_ITS | Encounter Summary ---
Author Organization [facility] Address [address] [place] [address] Care Team Providers Care Directory Assistance Operator Name Role Phone Martha Arriaga MD Primary Care Provid er Encounter Details Date Type Department Care Team (Late st Contact Info) Description 04/26/2005 Outpatient Historical [facility] [address] [place] [phone] Luis Carlos Saldaña Social History Tobacco Use Types Packs/Day Years Used Date Smoking Tobacco: Never Assessed Comments Unknown Sex and Gender Information Value Date Recorded Sex Assigned at Not on file Legal Sex Female 3:23 AM MUSEUM SPECIALIST Gender Identity Not on file Sexual Orientation Not on file documented as of this encounter Plan of Treatment Not on file documented as of this encounter Visit Diagnoses Not on filedocumented in this encounter Care Teams Directory Assistance Operator Relationship Specialty Start Date End Date Martha Arriaga MD PCP - General Internal Medicine 05/10/20 documented as of this encounter
--- OUTSIDE RECORDS SUMMARY | 2024-09-18 10:33 | XMS_ITS | Encounter Summary ---
Author Organization [facility] Address [address] [place] [address] Care Team Providers Care Nozzle Worker Name Role Phone Martha Arriaga MD Primary Care Provid er Encounter Details Date Type Department Care Team (Latest Contact Info) Description 09/03/2002 Outpatient Historical [facility] [place] [address] [facility] [place] [address] PERS HX CIRCULATORY DIS NEC (Primary Dx) Social History Tobacco Use Types Packs/Day Years Used Date Smoking Tobacco: Never Assessed Comments Unknown Sex and Gender Information Value Date Recorded Sex Assigned at Not on file Legal Sex Female 3:23 AM MED ASST Gender Identity Not on file Sexual Orientation Not on file documented as of this encounter Plan of Treatment Not on file documented as of this encounter Visit Diagnoses Diagnosis Personal history of other diseases of circulatory system- Primary documented in this encounter Care Teams Nozzle Worker Relationship Specialty Start Date End Date Martha Arriaga MD PCP - General Internal Medicine 05/10/20 documented as of this encounter
--- OUTSIDE RECORDS SUMMARY | 2024-09-18 10:33 | XMS_ITS | Encounter Summary ---
Author Organization [employer] [facility] Address [address] [place] [address] Care Team Providers Care Riveting Machine Operator Tape Control Name Role Phone Martha Arriaga MD Primary Care Provid er Encounter Details Date Type Department Care Team (Late st Contact Info) Description 11/01/2003 [facility] Social History Tobacco Use Types Packs/Day Years Used Date Smoking Tobacco: Never Assessed Comments Unknown Sex and Gender Information Value Date Recorded Sex Assigned at Not on file Legal Sex Female 3:23 AM MEDICAID ELIGIBILITY SPECIALIST Gender Identity Not on file Sexual Orientation Not on file documented as of this encounter Plan of Treatment Not on file documented as of this encounter Visit Diagnoses Not on filedocumented in this encounter Care Teams Riveting Machine Operator Tape Control Relationship Specialty Start Date End Date Martha Arriaga MD PCP - General Internal Medicine 05/10/20 documented as of this encounter
--- OUTSIDE RECORDS SUMMARY | 2024-09-18 10:33 | XMS_ITS | Encounter Summary ---
Author Organization [facility] Address [address] [place] [address] Care Team Providers Care Game Designer/Creative Director Name Role Phone Martha Arriaga MD Primary Care Provid er Encounter Details Date Type Department Care Team (Late st Contact Info) Description 06/16/2004 Outpatient Historical [facility] [address] [place] [address] Khris Simeon MD [address] [place] [address] Social History Tobacco Use Types Packs/Day Years Used Date Smoking Tobacco: Never Assessed Comments Unknown Sex and Gender Information Value Date Recorded Sex Assigned at Not on file Legal Sex Female 3:23 AM STOREROOM CLERK Gender Identity Not on file Sexual Orientation Not on file documented as of this encounter Plan of Treatment Not on file documented as of this encounter Visit Diagnoses Not on filedocumented in this encounter Care Teams Game Designer/Creative Director Relationship Specialty Start Date End Date Martha Arriaga MD PCP - General Internal Medicine 05/10/20 documented as of this encounter
--- OUTSIDE RECORDS SUMMARY | 2024-09-18 10:34 | XMS_ITS | Encounter Summary ---
Author Organization [employer] Address [address] [place] [address] Care Team Providers Care Leather Currier Name Role Phone Martha Arriaga MD Primary Care Provid er Encounter Details Date Type Department Care Team (Latest Contact Info) Description 06/16/2004 Inpatient Historical HIS PATIENT IN A BED Khris Simeon MD [address] [place] [address] OTHER POSTOP INFECTION (Primary Dx) Social History Tobacco Use Types Packs/Day Years Used Date Smoking Tobacco: Never Assessed Comments Unknown Sex and Gender Information Value Date Recorded Sex Assigned at Not on file Legal Sex Female 3:23 AM CONTAINERS SALES REPRESENTATIVE Gender Identity Not on file Sexual Orientation Not on file documented as of this encounter Plan of Treatment Not on file documented as of this encounter Visit Diagnoses Diagnosis Other postoperative infection- Primary documented in this encounter Care Teams Leather Currier Relationship Specialty Start Date End Date Martha Arriaga MD PCP - General Internal Medicine 05/10/20 documented as of this encounter
--- OUTSIDE RECORDS SUMMARY | 2024-09-18 10:34 | XMS_ITS | Encounter Summary ---
Author Organization [facility] Address [address] [place] [address] Care Team Providers Care Securities Underwriter Name Role Phone Martha Arriaga MD Primary Care Provid er Encounter Details Date Type Department Care Team (Late st Contact Info) Description 07/03/1999 Outpatient Historical [facility] Internal Medicine Medical [place] [facility] [address] [facility] [address] [place] [phone] Cheikh Tsang MD [address] [facility] [address] [place], [place] [id number] Social History Tobacco Use Types Packs/Day Years Used Date Smoking Tobacco: Never Assessed Comments Unknown Sex and Gender Information Value Date Recorded Sex Assigned at Not on file Legal Sex Female 3:23 AM DIETARY CLERK Gender Identity Not on file Sexual Orientation Not on file documented as of this encounter Plan of Treatment Not on file documented as of this encounter Visit Diagnoses Not on filedocumented in this encounter Care Teams Securities Underwriter Relationship Specialty Start Date End Date Martha Arriaga MD PCP - General Internal Medicine 05/10/20 documented as of this encounter
--- OUTSIDE RECORDS SUMMARY | 2024-09-18 10:34 | XMS_ITS | Clinical Summary ---
Author Organization [facility] Address [address] [place] [address] Phone Care Team Providers Care Vending Route Driver Name Role Phone Noé Lew MD Primary Care Provider [phone] Allergies Active Allergy Reactions Criticality Noted Date Comments Codeine Anaphylaxis High 02/18/2003 Erythromycin Rash Medium 02/18/2003 Iodine Unknown 07/03/2022 Latex Rash Medium 06/17/2009 Contact; bandaids and condoms Lavender Oil Shortness of Breath High 07/03/2022 Warfarin Rash High 09/23/2008 Medications ergocalciferol (VITAMIN D) 58060 UNIT Capsule TAKE 1 CAPSULE WEEKLY 06/25/2024 Active Active Problems Problem Noted Date Diagnosed Date Factor V Leiden 09/02/2024 Encounters Date Type Department Care Team Description 09/09/2024 Travel 09/08/2024 Travel 09/02/2024 3:00 PM CARD FEEDER [facility] [address] [place] [id number] Pricila Cruz, PAC Factor V Leiden (HCC) Discharge Disposition: Discharged to home or Selfcare 09/02/2024 2:15 PM CARD FEEDER Initial Consult [facility] Oncology Services [address] [place] [address] Noé Lew MD Norris, Arlene [...] on file Legal Sex Female 12:58 PM CARD FEEDER Gender Identity Not on file Sexual Orientation Not on file Last Filed Vital Signs Vital Sign Reading Time Taken Comments Blood Pressure 156/65 09/02/2024 2:48 PM CARD FEEDER Pulse 77 09/02/2024 2:48 PM CARD FEEDER Temperature 36.7 C (98.1 F) 09/02/2024 2:48 PM CARD FEEDER Respiratory Rate 18 09/02/2024 2:48 PM CARD FEEDER Oxygen Saturation 97% 09/02/2024 2:48 PM CARD FEEDER Inhaled Oxygen Concentration - - Weight 148.1 kg (326 lb 9.6 oz) 09/02/2024 2:48 PM CARD FEEDER Height 165.1 cm (5' 5 ) 09/02/2024 2:48 PM CARD FEEDER Body Mass Index 54.35 09/02/2024 2:48 PM CARD FEEDER Plan of Treatment Upcoming Encounters Date Type Department Care Team (Late st Contact Info) Description 09/21/2024 1:45 PM CARD FEEDER [facility] [address] [place] [address] Pricila Cruz Krysta, PAC [address] [place] [address] Discharge Disposition: Discharged to home or Selfcare [...] LUPUS ANTICOAG PROFILE Routine 09/02/2024 3:24 PM CARD FEEDER Factor V Leiden (HCC) BETA-2 GPI AB IGA, IGG, IGM Routine 09/02/2024 3:24 PM CARD FEEDER Factor V Leiden (HCC) ANTI CARDIOLIPIN IGG, IGM & IGA Routine 09/02/2024 3:24 PM CARD FEEDER Factor V Leiden (HCC) PHOSPHOLIPID PANEL (ACL,B2GP,LUPAP) Routine 09/02/2024 3:24 PM CARD FEEDER Factor V Leiden (HCC) ANTI THROMBIN III ACTIVITY Routine 09/02/2024 3:24 PM CARD FEEDER Factor V Leiden (HCC) PROTEIN S ACTIVITY Routine 09/02/2024 3: 24 PM CARD FEEDER Factor V Leiden (HCC) PROTEIN C ACTIVITY Routine 09/02/2024 3: 24 PM CARD FEEDER Factor V Leiden (HCC) from Last 3 Months Results * (ABNORMAL) LUPUS ANTICOAG PROFILE (09/02/2024 3:24 PM CARD FEEDER) INR 1.0 0.9 - 1.2 09/04/2024 10:41 AM [facility] THROMBIN TIME 19.1(H) 15.1 - 18.5 sec 09/04/2024 10:41 AM [facility] PROTIME-PATIEN T 13.1 11.6 - 14.8 sec 09/04/2024 10:41 AM [facility] APTT-LA 33.1 30.6 - 38.8 sec 09/04/2024 10:41 AM [facility] DRVV SCREEN RATIO 1.0 <=1.2 ratio 09/04/2024 10:41 AM [facility] Blood Venipuncture / Unknown 09/02/2024 3:24 PM CARD FEEDER 09/02/2024 3:24 PM CARD FEEDER Narrative [facility] - 09/04/2024 10:41 AM CARD FEEDER No evidence of lupus-like anticoagulant based on results of Lupus sensitive Activated Partial Thromboplastin Time (APTT) and Dilute Alex's Viper Venom Time (DRVVT). us Pricila Cruz PAC HEMATOLOGY ORDERABLES Fin al Result Performing Organization Address City/State/[facility] Co de Phone Number [facility] [address] [place] [address], * BETA-2 GPI AB IGA, IGG, IGM (09/02/2024 3:24 PM CARD FEEDER) Pathologist [facility] BETA-2 GLYCOPROTEIN IGA <2.0 <20.0 APL-U/mL 09/02/2024 10:13 PM CARD FEEDER [facility] BETA-2 GLYCOPROTEIN IGG <1.4 <20.0 GPL-U/mL 09/02/2024 10:13 PM [facility] BETA-2 GLYCOPROTEIN IGM 1.8 <20.0 MPL-U/mL 09/02/2024 10:13 PM [facility] Blood Venipuncture / Unknown 09/02/2024 3:24 PM CARD FEEDER 09/02/2024 3:24 PM CARD FEEDER Narrative [facility] - 09/02/2024 10:13 PM CARD FEEDER Antibody testing was performed by multiplex flow immunoassay on the BioPlex platform. [facility] IMMUNOLOGY ORDERABLES Fin al Result Performing Organization Address City/[facility]/ZIP Co de Phone Number [facility] [address] [place] [address], [place] * ANTI CARDIOLIPIN IGG, IGM & IGA (09/02/2024 3:24 PM CARD FEEDER) CARDIOLIPIN IGA <2.0 <20.0 APL-U/mL 09/02/2024 10:13 PM CARD FEEDER [facility] CARDIOLIPIN IGG <1.6 <20.0 GPL-U/mL 09/02/2024 10:13 PM CARD FEEDER [facility] CARDIOLIPIN IGM 2.3 <20.0 MPL-U/mL 09/02/2024 10:13 PM CARD FEEDER [facility] Blood Venipuncture / Unknown 09/02/2024 3:24 PM CARD FEEDER 09/02/2024 3:24 PM CARD FEEDER Narrative [facility] - 09/02/2024 10:13 PM CARD FEEDER Antibody testing was performed by multiplex flow immunoassay on the BioPlex platform. [facility] IMMUNOLOGY ORDERABLES Fin al Result Performing Organization Address [facility]/ZIP Co de Phone Number [facility] [address] [place] [address], [place] * PROTEIN S ACTIVITY (09/02/2024 3:24 PM CARD FEEDER) PROTEIN S ACTIVITY 74.0 65 - 129 % 09/04/2024 10:11 AM CARD FEEDER [facility] Blood Venipuncture / Unknown 09/02/2024 3:24 PM CARD FEEDER 09/02/2024 3:24 PM CARD FEEDER [facility] HEMATOLOGY ORDERABLES Fin al Result [facility] [address] [place] [address], [place] * PROTEIN C ACTIVITY (09/02/2024 3:24 PM CARD FEEDER) PROTEIN C ACTIVITY 126.0 79 - 175 % 09/04/2024 10:10 AM CARD FEEDER [facility] Blood Venipuncture / Unknown 09/02/2024 3:24 PM CARD FEEDER 09/02/2024 3:24 PM CARD FEEDER [facility] PAC HEMATOLOGY ORDERABLES Fin al Result [facility] [address] [place] [address], [place] * ANTI THROMBIN III ACTIVITY (09/02/2024 3:24 PM CARD FEEDER) ANTITHROMBIN III 112 82 - 139 % 09/02/19 11:54 PM CARD FEEDER [facility] Blood Venipuncture / Unknown 09/02/2024 3:24 PM CARD FEEDER 09/02/2024 3:24 PM CARD FEEDER [facility] PAC HEMATOLOGY ORDERABLES Fin al Result [facility] [address] [place] [address], [place] from Last 3 Months Insurance MEDICARE C [facility] MEDICAID [place] Care Teams Vending Route Driver Relationship Specialty Start Date End Date Noé Lew MD [address] [place] [address] PCP - General Internal Medicine 07/01/24
--- OUTSIDE RECORDS SUMMARY | 2024-09-18 10:34 | XMS_ITS | Encounter Summary ---
Author Organization [employer] Address [address] [place] [address] Care Team Providers Care Recep Name Role Phone Martha Arriaga MD Primary Care Provid er Encounter Details Date Type Department Care Team (Latest Contact Info) Description 05/04/1999 Outpatient Historical [facility],NON-PATIENT Baldev Tolbert MD [address] [facility] [address] [place] [phone] Screening for malignant neoplasm of the cervix (Primary Dx) Social History Tobacco Use Types Packs/Day Years Used Date Smoking Tobacco: Never Assessed Comments Unknown Sex and Gender Information Value Date Recorded Sex Assigned at Not on file Legal Sex Female 3:23 AM CHILD WELFARE CASEWORKER Gender Identity Not on file Sexual Orientation Not on file documented as of this encounter Plan of Treatment Not on file documented as of this encounter Visit Diagnoses Diagnosis Screening for malignant neoplasm of the cervix- Primary documented in this encounter Care Teams Recep Relationship Specialty Start Date End Date Martha Arriaga MD PCP - General Internal Medicine 05/10/20 documented as of this encounter
--- OUTSIDE RECORDS SUMMARY | 2024-09-18 10:34 | XMS_ITS | Encounter Summary ---
Author Organization [employer] Address [address] [place] [address] Care Team Providers Care Gyroscopic Instrument Tester Name Role Phone Martha Arriaga MD Primary Care Provid er Encounter Details Date Type Department Care Team (Latest Contact Info) Description 01/06/1999 Outpatient Historical [facility] CARDIOPULMONARY Cheikh Tsang MD [facility] [address] [place] [address] Pain in limb (Primary Dx) Social History Tobacco Use Types Packs/Day Years Used Date Smoking Tobacco: Never Assessed Comments Unknown Sex and Gender Information Value Date Recorded Sex Assigned at Not on file Legal Sex Female 3:23 AM SLAG MIXER Gender Identity Not on file Sexual Orientation Not on file documented as of this encounter Plan of Treatment Not on file documented as of this encounter Visit Diagnoses Diagnosis Pain in limb- Primary documented in this encounter Care Teams Gyroscopic Instrument Tester Relationship Specialty Start Date End Date Martha Arriaga MD PCP - General Internal Medicine 05/10/20 documented as of this encounter
--- OUTSIDE RECORDS SUMMARY | 2024-09-18 10:34 | XMS_ITS | Encounter Summary ---
Author Organization [facility] Address [address] [place] [address] Care Team Providers Care Surgical Supervisor Name Role Phone Martha Arriaga MD Primary Care Provid er Encounter Details Date Type Department Care Team (Latest Contact Info) Description 06/27/2004 Outpatient Historical [facility] - [facility] [address] [place] [address] Luis Carlos Saldaña OPEN WOUND KNEE/LEG-COMPL (Primary Dx) Social History Tobacco Use Types Packs/Day Years Used Date Smoking Tobacco: Never Assessed Comments Unknown Sex and Gender Information Value Date Recorded Sex Assigned at Not on file Legal Sex Female 3:23 AM AUTO BODY REPAIR ESTIMATOR Gender Identity Not on file Sexual Orientation Not on file documented as of this encounter Plan of Treatment Not on file documented as of this encounter Visit Diagnoses Diagnosis Open wound of knee, leg (except thigh), and ankle, complicated- Primary documented in this encounter Care Teams Surgical Supervisor Relationship Specialty Start Date End Date Martha Arriaga MD PCP - General Internal Medicine 05/10/20 documented as of this encounter
--- OUTSIDE RECORDS SUMMARY | 2024-09-18 10:34 | XMS_ITS | Encounter Summary ---
Author Organization [facility] Address [address] [place] [address] Care Team Providers Care Production Pattern Maker Name Role Phone Martha Arriaga MD Primary Care Provid er Encounter Details Date Type Department Care Team (Late st Contact Info) Description 06/19/2004 Outpatient Historical [facility] - [facility] [address] [place] [address] Elisa Doshi NO ADDRESS ON FILE Social History Tobacco Use Types Packs/Day Years Used Date Smoking Tobacco: Never Assessed Comments Unknown Sex and Gender Information Value Date Recorded Sex Assigned at Not on file Legal Sex Female 3:23 AM DAMPENER Gender Identity Not on file Sexual Orientation Not on file documented as of this encounter Plan of Treatment Not on file documented as of this encounter Visit Diagnoses Not on filedocumented in this encounter Care Teams Production Pattern Maker Relationship Specialty Start Date End Date Martha Arriaga MD PCP - General Internal Medicine 05/10/20 documented as of this encounter
--- OUTSIDE RECORDS SUMMARY | 2024-09-18 10:34 | XMS_ITS | Encounter Summary ---
Author Organization [facility] Address [address] [place] [address] Care Team Providers Care Fish Icer Name Role Phone Martha Arriaga MD Primary Care Provid er Encounter Details Date Type Department Care Team (Latest Contact Info) Description 06/16/2004 Outpatient Historical [facility] - [facility] [address] [place] [address] Luis Carlos Saldaña OPEN WOUND KNEE/LEG-COMPL (Primary Dx) Social History Tobacco Use Types Packs/Day Years Used Date Smoking Tobacco: Never Assessed Comments Unknown Sex and Gender Information Value Date Recorded Sex Assigned at Not on file Legal Sex Female 3:23 AM NICKEL PLANT OPERATOR Gender Identity Not on file Sexual Orientation Not on file documented as of this encounter Plan of Treatment Not on file documented as of this encounter Visit Diagnoses Diagnosis Open wound of knee, leg (except thigh), and ankle, complicated- Primary documented in this encounter Care Teams Fish Icer Relationship Specialty Start Date End Date Martha Arriaga MD PCP - General Internal Medicine 05/10/20 documented as of this encounter
--- OUTSIDE RECORDS SUMMARY | 2024-09-18 10:34 | XMS_ITS | Encounter Summary ---
Author Organization [facility] Address [address] [place] [address] Care Team Providers Care Family Service Center Director Name Role Phone Martha Arriaga MD Primary Care Provid er Encounter Details Date Type Department Care Team (Late st Contact Info) Description 06/16/2004 Outpatient Historical [facility] [address] [facility] [address] [phone] [place] [address] [place] [address] Social History Tobacco Use Types Packs/Day Years Used Date Smoking Tobacco: Never Assessed Comments Unknown Sex and Gender Information Value Date Recorded Sex Assigned at Not on file Legal Sex Female 3:23 AM PACK PULLER Gender Identity Not on file Sexual Orientation Not on file documented as of this encounter Plan of Treatment Not on file documented as of this encounter Visit Diagnoses Not on filedocumented in this encounter Care Teams Family Service Center Director Relationship Specialty Start Date End Date Martha Arriaga MD PCP - General Internal Medicine 05/10/20 documented as of this encounter
--- OUTSIDE RECORDS SUMMARY | 2024-09-18 10:34 | XMS_ITS | Encounter Summary ---
Author Organization [facility] Address [address] [place] [address] Care Team Providers Care Storage Engineer Name Role Phone Martha Arriaga MD Primary Care Provid er Encounter Details Date Type Department Care Team (Late st Contact Info) Description 01/04/1999 Outpatient Historical [facility] Internal Medicine Medical [place] [facility] [address] [facility] [address] [place] [phone] Cheikh Tsang MD [address] [facility] [address] [place] [address] Social History Tobacco Use Types Packs/Day Years Used Date Smoking Tobacco: Never Assessed Comments Unknown Sex and Gender Information Value Date Recorded Sex Assigned at Not on file Legal Sex Female 3:23 AM PIGEON FANCIER Gender Identity Not on file Sexual Orientation Not on file documented as of this encounter Plan of Treatment Not on file documented as of this encounter Visit Diagnoses Not on filedocumented in this encounter Care Teams Storage Engineer Relationship Specialty Start Date End Date Martha Arriaga MD PCP - General Internal Medicine 05/10/20 documented as of this encounter
--- OUTSIDE RECORDS SUMMARY | 2024-09-18 10:34 | XMS_ITS | Encounter Summary ---
Author Organization [employer] Address [address] [place] [address] Care Team Providers Care Synthetic Cloth Binding Cutter Name Role Phone Martha Arriaga MD Primary Care Provid er Encounter Details Date Type Department Care Team (Latest Contact Info) Description 01/07/2000 Inpatient Historical HIS PATIENT IN A BED [facility] Incisional hernia without mention of obstruction or gangrene (Primary Dx) Social History Tobacco Use Types Packs/Day Years Used Date Smoking Tobacco: Never Assessed Comments Unknown Sex and Gender Information Value Date Recorded Sex Assigned at Not on file Legal Sex Female 3:23 AM SENIOR ETL DEVELOPER Gender Identity Not on file Sexual Orientation Not on file documented as of this encounter Plan of Treatment Not on file documented as of this encounter Visit Diagnoses Diagnosis Incisional hernia without mention of obstruction or gangrene- Primary documented in this encounter Care Teams Synthetic Cloth Binding Cutter Relationship Specialty Start Date End Date Martha Arriaga MD PCP - General Internal Medicine 05/10/20 documented as of this encounter
--- OUTSIDE RECORDS SUMMARY | 2024-09-18 10:34 | XMS_ITS | Encounter Summary ---
Author Organization [employer] Address [address] [place] [address] Care Team Providers Care Mill Beam Fitter Name Role Phone Martha Arriaga MD Primary Care Provid er Encounter Details Date Type Department Care Team (Late st Contact Info) Description 05/08/2004 Outpatient Historical [facility] Bernard Mcmillan MD [address] [place], [place] [id number] [place], Authorized P NO ADDRESS ON FILE SPRAIN OF NECK (Primary Dx) Social History Tobacco Use Types Packs/Day Years Used Date Smoking Tobacco: Never Assessed Comments Unknown Sex and Gender Information Value Date Recorded Sex Assigned at Not on file Legal Sex Female 3:23 AM SENIOR CISCO NETWORK ENGINEER Gender Identity Not on file Sexual Orientation Not on file documented as of this encounter Plan of Treatment Not on file documented as of this encounter Visit Diagnoses Diagnosis Sprain of neck- Primary documented in this encounter Care Teams Mill Beam Fitter Relationship Specialty Start Date End Date Martha Arriaga MD PCP - General Internal Medicine 05/10/20 documented as of this encounter
--- OUTSIDE RECORDS SUMMARY | 2024-09-18 10:34 | XMS_ITS | Encounter Summary ---
Author Organization [employer] Address [address] [place] [address] Care Team Providers Care Database Manager Name Role Phone Martha Arriaga MD [...] on file Legal Sex Female 3:23 AM OUTER DIAMETER GRINDER Gender Identity Not on file Sexual Orientation Not on file documented as of this encounter Plan of Treatment Not on file documented as of this encounter Visit Diagnoses Diagnosis Contusion of unspecified part of trunk- Primary documented in this encounter Care Teams Database Manager Relationship Specialty Start Date End Date Martha Arriaga MD PCP - General Internal Medicine 05/10/20 documented as of this encounter
--- OUTSIDE RECORDS SUMMARY | 2024-09-18 10:34 | XMS_ITS | Encounter Summary ---
Author Organization [facility] Address [address] [place] [address] Care Team Providers Care Laborer Yard Name Role Phone Martha Arriaga MD Primary Care Provid er Encounter Details Date Type Department Care Team (Latest Contact Info) Description 01/10/1999 Outpatient Historical [facility] Cheikh Ortiz MD [facility] [address] [place] [address] Depressive disorder, not elsewhere classified (Primary Dx) Social History Tobacco Use Types Packs/Day Years Used Date Smoking Tobacco: Never Assessed Comments Unknown Sex and Gender Information Value Date Recorded Sex Assigned at Not on file Legal Sex Female 3:23 AM POLITICAL SCIENCE FACULTY MEMBER Gender Identity Not on file Sexual Orientation Not on file documented as of this encounter Plan of Treatment Not on file documented as of this encounter Visit Diagnoses Diagnosis Depressive disorder, not elsewhere classified- Primary documented in this encounter Care Teams Laborer Yard Relationship Specialty Start Date End Date Martha Arriaga MD PCP - General Internal Medicine 05/10/20 documented as of this encounter
--- OUTSIDE RECORDS SUMMARY | 2024-09-18 10:34 | XMS_ITS | Encounter Summary ---
Author Organization [facility] Address [address] [place] [address] Care Team Providers Care Machine Tool Rebuilder Name Role Phone Martha Arriaga MD Primary Care Provid er Encounter Details Date Type Department Care Team (Late st Contact Info) Description 06/17/2004 Outpatient Historical [facility] Trauma and General Surgery [address] [facility] [address] [address] [place] [address] [place] [address] Social History Tobacco Use Types Packs/Day Years Used Date Smoking Tobacco: Never Assessed Comments Unknown Sex and Gender Information Value Date Recorded Sex Assigned at Not on file Legal Sex Female 3:23 AM MICROBIOLOGY LAB ANALYST Gender Identity Not on file Sexual Orientation Not on file documented as of this encounter Plan of Treatment Not on file documented as of this encounter Visit Diagnoses Not on filedocumented in this encounter Care Teams Machine Tool Rebuilder Relationship Specialty Start Date End Date Martha Arriaga MD PCP - General Internal Medicine 05/10/20 documented as of this encounter
--- OUTSIDE RECORDS SUMMARY | 2024-09-18 10:34 | XMS_ITS | Encounter Summary ---
Author Organization [facility] Address [address] [place] [address] Care Team Providers Care Unemployment Inspector Name Role Phone Martha Arriaga MD Primary Care Provid er Encounter Details Date Type Department Care Team (Late st Contact Info) Description 06/27/2004 Outpatient Historical [facility] - [facility] [address] [place] [address] [place] [address] [place] [address] Social History Tobacco Use Types Packs/Day Years Used Date Smoking Tobacco: Never Assessed Comments Unknown Sex and Gender Information Value Date Recorded Sex Assigned at Not on file Legal Sex Female 3:23 AM PARTICIPANT ADMINISTRATOR Gender Identity Not on file Sexual Orientation Not on file documented as of this encounter Plan of Treatment Not on file documented as of this encounter Visit Diagnoses Not on filedocumented in this encounter Care Teams Unemployment Inspector Relationship Specialty Start Date End Date Martha Arriaga MD PCP - General Internal Medicine 05/10/20 documented as of this encounter
--- OUTSIDE RECORDS SUMMARY | 2024-09-18 10:34 | XMS_ITS | Encounter Summary ---
Author Organization [facility] Address [address] [place] [address] Care Team Providers Care Emergency Vehicle Technician Name Role Phone Martha Arriaga MD Primary Care Provid er Encounter Details Date Type Department Care Team (Late st Contact Info) Description 11/03/2003 Outpatient Historical [facility] Internal Medicine - [place] [place] [phone] [place]ña [place] [address] [place] [address] Social History Tobacco Use Types Packs/Day Years Used Date Smoking Tobacco: Never Assessed Comments Unknown Sex and Gender Information Value Date Recorded Sex Assigned at Not on file Legal Sex Female 3:23 AM MENTAL HEALTH PROGRAM SPECIALIST Gender Identity Not on file Sexual Orientation Not on file documented as of this encounter Last Filed Vital Signs Vital Sign Reading Time Taken Comments Blood Pressure 120/78 11/03/2003 9:15 AM MENTAL HEALTH PROGRAM SPECIALIST Pulse 66 11/03/2003 9:15 AM MENTAL HEALTH PROGRAM SPECIALIST Temperature - - Respiratory Rate - - Oxygen Saturation - - Inhaled Oxygen Concentration - - Weight 114.8 kg (253 lb) 11/03/2003 9:15 AM MENTAL HEALTH PROGRAM SPECIALIST Height - - Body Mass Index - - documented in this encounter Plan of Treatment Not on file documented as of this encounter Visit Diagnoses Not on filedocumented in this encounter Care Teams Emergency Vehicle Technician Relationship Specialty Start Date End Date Martha Arriaga MD PCP - General Internal Medicine 05/10/20 documented as of this encounter
--- OUTSIDE RECORDS SUMMARY | 2024-09-18 10:34 | XMS_ITS | Encounter Summary ---
Author Organization [facility] Address [address] [place] [address] Care Team Providers Care Sales Marketing Name Role Phone Martha Arriaga MD Primary Care Provid er Encounter Details Date Type Department Care Team (Latest Contact Info) Description 06/19/2004 Outpatient Historical [facility] Hyper[facility]ic and Wound Treatment [facility] - [facility] [address] [place] [address] Luis Carlos Saldaña OPEN WOUND KNEE/LEG-COMPL (Primary Dx) Social History Tobacco Use Types Packs/Day Years Used Date Smoking Tobacco: Never Assessed Comments Unknown Sex and Gender Information Value Date Recorded Sex Assigned at Not on file Legal Sex Female 3:23 AM STRETCHER LEVELER OPERATOR Gender Identity Not on file Sexual Orientation Not on file documented as of this encounter Plan of Treatment Not on file documented as of this encounter Visit Diagnoses Diagnosis Open wound of knee, leg (except thigh), and ankle, complicated- Primary documented in this encounter Care Teams Sales Marketing Relationship Specialty Start Date End Date Martha Arriaga MD PCP - General Internal Medicine 05/10/20 documented as of this encounter
--- OUTSIDE RECORDS SUMMARY | 2024-09-18 10:34 | XMS_ITS | Encounter Summary ---
Author Organization [facility] Address [address] [place] [address] Care Team Providers Care Sales Merchandiser Name Role Phone Martha Arriaga MD Primary Care Provid er Encounter Details Date Type Department Care Team (Late st Contact Info) Description 06/18/1998 Outpatient Historical [facility] Internal Medicine [place] [address] [place] [address] Luis Carlos Watts MD [address] [place] [address] Social History Tobacco Use Types Packs/Day Years Used Date Smoking Tobacco: Never Assessed Comments Unknown Sex and Gender Information Value Date Recorded Sex Assigned at Not on file Legal Sex Female 3:23 AM STEAMER GUM CANDY Gender Identity Not on file Sexual Orientation Not on file documented as of this encounter Plan of Treatment Not on file documented as of this encounter Visit Diagnoses Not on filedocumented in this encounter Care Teams Sales Merchandiser Relationship Specialty Start Date End Date Martha Arriaga MD PCP - General Internal Medicine 05/10/20 documented as of this encounter
--- OUTSIDE RECORDS SUMMARY | 2024-09-18 10:34 | XMS_ITS | Encounter Summary ---
Author Organization [facility] Address [address] [place] [address] Care Team Providers Care Data Keyer Name Role Phone Martha Arriaga MD Primary Care Provid er Encounter Details Date Type Department Care Team (Late st Contact Info) Description 09/20/1998 Outpatient Historical [facility] Internal Medicine Medical [place] [facility] [address] [facility] [address] [place] [phone] Cheikh Tsang MD [address] [facility] [address] [place], [place] [phone] Social History Tobacco Use Types Packs/Day Years Used Date Smoking Tobacco: Never Assessed Comments Unknown Sex and Gender Information Value Date Recorded Sex Assigned at Not on file Legal Sex Female 3:23 AM ASSOCIATE MUSIC PROFESSOR Gender Identity Not on file Sexual Orientation Not on file documented as of this encounter Plan of Treatment Not on file documented as of this encounter Visit Diagnoses Not on filedocumented in this encounter Care Teams Data Keyer Relationship Specialty Start Date End Date Martha Arriaga MD PCP - General Internal Medicine 05/10/20 documented as of this encounter
--- OUTSIDE RECORDS SUMMARY | 2024-09-18 10:34 | XMS_ITS | Encounter Summary ---
Author Organization [facility] Address [address] [place] [address] Care Team Providers Care Pacu Rn Name Role Phone Martha Arriaga MD Primary Care Provid er Encounter Details Date Type Department Care Team (Late st Contact Info) Description 03/20/2001 Outpatient Historical [facility] Internal Medicine Medical [place] [facility] [address] [place] [phone] Cheikh Tsang MD [address] [facility] [address] [place], [place] [phone] Social History Tobacco Use Types Packs/Day Years Used Date Smoking Tobacco: Never Assessed Comments Unknown Sex and Gender Information Value Date Recorded Sex Assigned at Not on file Legal Sex Female 3:23 AM PRINCIPAL BIOSTATISTICIAN Gender Identity Not on file Sexual Orientation Not on file documented as of this encounter Plan of Treatment Not on file documented as of this encounter Visit Diagnoses Not on filedocumented in this encounter Care Teams Pacu Rn Relationship Specialty Start Date End Date Martha Arriaga MD PCP - General Internal Medicine 05/10/20 documented as of this encounter
--- OUTSIDE RECORDS SUMMARY | 2024-09-18 10:34 | XMS_ITS | Encounter Summary ---
Author Organization [facility] Address [address] [place] [address] Care Team Providers Care Cooler Tender Name Role Phone Martha Arriaga MD Primary Care Provid er Encounter Details Date Type Department Care Team (Late st Contact Info) Description 06/16/2004 Outpatient Historical [facility] [address] [place] [address] Luis Berkowitz MD NO ADDRESS ON FILE Social History Tobacco Use Types Packs/Day Years Used Date Smoking Tobacco: Never Assessed Comments Unknown Sex and Gender Information Value Date Recorded Sex Assigned at Not on file Legal Sex Female 3:23 AM ASSESSMENT NURSE Gender Identity Not on file Sexual Orientation Not on file documented as of this encounter Plan of Treatment Not on file documented as of this encounter Visit Diagnoses Not on filedocumented in this encounter Care Teams Cooler Tender Relationship Specialty Start Date End Date Martha Arriaga MD PCP - General Internal Medicine 05/10/20 documented as of this encounter
--- OUTSIDE RECORDS SUMMARY | 2024-09-18 10:34 | XMS_ITS | Encounter Summary ---
Author Organization [facility] Address [address] [place] [address] Care Team Providers Care Aluminizer Name Role Phone Martha Arriaga MD Primary Care Provid er Encounter Details Date Type Department Care Team (Late st Contact Info) Description 07/11/2004 Outpatient Historical [facility] Hyperbaric and Wound Treatment Center - [facility] [address] [place] [address] [place] [address] [place] [address] Social History Tobacco Use Types Packs/Day Years Used Date Smoking Tobacco: Never Assessed Comments Unknown Sex and Gender Information Value Date Recorded Sex Assigned at Not on file Legal Sex Female 3:23 AM MANAGER ADMINISTRATIVE Gender Identity Not on file Sexual Orientation Not on file documented as of this encounter Plan of Treatment Not on file documented as of this encounter Visit Diagnoses Not on filedocumented in this encounter Care Teams Aluminizer Relationship Specialty Start Date End Date Martha Arriaga MD PCP - General Internal Medicine 05/10/20 documented as of this encounter
== END 2024-09-18 09:46 | disposition home or self-care (01) ==
PROVIDERS: PCP Internal Medicine; Visit Provider Internal Medicine
DX: E07.9 Disorder of thyroid, unspecified (principal); E04.1 Nontoxic single thyroid nodule
CPT/HCPCS: 10005; 10006; 88172; 88173; 88177; 88305

== ENCOUNTER 2024-10-06 08:49 | Outpatient (CLI) | payer MEDICARE, MEDICAID, SELFPAY ==
--- NOTE | ~2024-10-06 | MM_ITS ---
EXAMINATION: MM diagnostic shelli LT w helio HISTORY: Left breast calcifications TECHNIQUE: Additional spot magnification images of the left breast were performed and synthetic 2-D i mages were generated. CAD analysis was submitted and interpreted. COMPARISON: 09/16/2024 BREAST PARENCHYMAL COMPOSITION:Not Dense. There are scattered areas of fibroglandular density. FINDINGS: Spot magnification views demonstrate loosely grouped mildly irregular microcalcifications w ith a somewhat segmental distribution. IMPRESSION: Microcalcifications left breast are at least mildly suspicious, as detailed above. Stereotactic biops y recommended to establish a histologic diagnosis. BI-RADS category 4, suspicious findings. Reviewed, dictated and finalized at location . UNT DEVELOPMENT ASSOCIATE IMPRESSION: Microcalcifications left breast are at least mildly suspicious, as detailed abo ve. Stereotactic biopsy recommended to establish a histologic diagnosis. BI-RADS category 4, suspicious findings.
--- NOTE | ~2024-10-06 | XR_ITS ---
CHEST RADIOGRAPH, PA AND LATERAL CLINICAL HISTORY: SOB upon exertion X 2 years . COMPARISON: None available TECHNIQUE: PA and lateral views of the chest. FINDINGS The cardiomediastinal silhouette is unremarkable. The lungs are clear. Visualized osseous structures and soft tissues are unremarkable. IMPRESSION: No focal infiltrate or effusion. Reviewed, dictated and finalized at location A. ET RESEARCH INTERN
--- OUTSIDE RECORDS SUMMARY | 2024-10-06 09:28 | XMS_ITS | Encounter Summary ---
Author Organization [facility] Address [address] [place] [address] Care Team Providers Care Loadmaster Name Role Phone Martha Arriaga MD Primary Care Provid er Encounter Details Date Type Department Care Team (Late st Contact Info) Description 04/26/2005 Outpatient Historical [facility]ic and Wound Treatment Center - [facility] [address] [place] [address] [place] [address] [place] [address] Social History Tobacco Use Types Packs/Day Years Used Date Smoking Tobacco: Never Assessed Comments Unknown Sex and Gender Information Value Date Recorded Sex Assigned at Not on file Legal Sex Female 3:23 AM CROSS TIE MAKER Gender Identity Not on file Sexual Orientation Not on file documented as of this encounter Plan of Treatment Not on file documented as of this encounter Visit Diagnoses Not on filedocumented in this encounter Care Teams Loadmaster Relationship Specialty Start Date End Date Martha Arriaga MD PCP - General Internal Medicine 05/10/20 documented as of this encounter
--- OUTSIDE RECORDS SUMMARY | 2024-10-06 09:28 | XMS_ITS | Encounter Summary ---
Author Organization [facility] Address [address] [place] [address] Care Team Providers Care Roof Panel Hanger Name Role Phone Martha Arriaga MD Primary Care Provid er Encounter Details Date Type Department Care Team (Latest Contact Info) Description 12/22/2004 Outpatient Historical [facility] Hyperbaric and Wound Treatment Center - [facility] [address] [place] [address] Luis Carlos Saldaña OPEN WOUND KNEE/LEG-COMPL (Primary Dx) Social History Tobacco Use Types Packs/Day Years Used Date Smoking Tobacco: Never Assessed Comments Unknown Sex and Gender Information Value Date Recorded Sex Assigned at Not on file Legal Sex Female 3:23 AM ELECTRIC ENGINE MECHANIC Gender Identity Not on file Sexual Orientation Not on file documented as of this encounter Plan of Treatment Not on file documented as of this encounter Visit Diagnoses Diagnosis Open wound of knee, leg (except thigh), and ankle, complicated- Primary documented in this encounter Care Teams Roof Panel Hanger Relationship Specialty Start Date End Date Martha Arriaga MD PCP - General Internal Medicine 05/10/20 documented as of this encounter
--- OUTSIDE RECORDS SUMMARY | 2024-10-06 09:28 | XMS_ITS | Encounter Summary ---
Author Organization [facility] Address [address] [facility] Attn: Epic Prelude ADT [place] [address] Care Team Providers Care Environmental Planning Engineer Name Role Phone Martha Arriaga MD Primary Care Provid er Encounter Details Date Type Department Care Team (Late st Contact Info) Description 09/30/2002 Outpatient Historical Social History Tobacco Use Types Packs/Day Years Used Date Smoking Tobacco: Never Assessed Comments Unknown Sex and Gender Information Value Date Recorded Sex Assigned at Not on file Legal Sex Female 3:23 AM ASSISTANT CREDIT MANAGER Gender Identity Not on file Sexual Orientation Not on file documented as of this encounter Plan of Treatment Not on file documented as of this encounter Visit Diagnoses Not on filedocumented in this encounter Care Teams Environmental Planning Engineer Relationship Specialty Start Date End Date Martha Arriaga MD PCP - General Internal Medicine 05/10/20 documented as of this encounter
--- OUTSIDE RECORDS SUMMARY | 2024-10-06 09:28 | XMS_ITS | Encounter Summary ---
Author Organization [facility] Address [address] [place] [address] Care Team Providers Care Brazer Induction Name Role Phone Martha Arriaga MD Primary Care Provid er Encounter Details Date Type Department Care Team (Late st Contact Info) Description 07/25/2004 Outpatient Historical [facility] Hyperbaric and Wound Treatment Center - [facility] [address] [place] [address] [place] [address] [place] [address] Social History Tobacco Use Types Packs/Day Years Used Date Smoking Tobacco: Never Assessed Comments Unknown Sex and Gender Information Value Date Recorded Sex Assigned at Not on file Legal Sex Female 3:23 AM INFORMATION TECHNOLOGY PROGRAM MANAGER Gender Identity Not on file Sexual Orientation Not on file documented as of this encounter Plan of Treatment Not on file documented as of this encounter Visit Diagnoses Not on filedocumented in this encounter Care Teams Brazer Induction Relationship Specialty Start Date End Date Martha Arriaga MD PCP - General Internal Medicine 05/10/20 documented as of this encounter
--- OUTSIDE RECORDS SUMMARY | 2024-10-06 09:28 | XMS_ITS | Referral Summary ---
Author Organization [facility] Address [address] [facility] [address] [place] [address] Care Team Providers Care Licensed Nurse Practitioner Name Role Phone Janny Torres MD Unavailable [phone] Noé Lew MD Primary Care Provider [phone] Source Comments [facility],non-owned Affiliates and Associated Physician Practices is amultiple site organization consisting of ambulatory clinics and hospital sitesin [place], [place], [place] and [place]. This disclosure is being madepursuant to the Care Everywhere program and may not contain all information available regarding this patient. Last updated 18.[facility] Encounters Date Type Department Care Team Description 09/07/2024 Travel 09/07/2024 10:00 AM FIRE DISPATCHER Office Visit [facility] - Rheumatology [facility] [place] [phone] Gaby Lion MD Ribonucleoprotein antibody positive (Primary Dx) 08/26/2024 Travel from Last 3 Months Allergies Active Allergy [...] Status vitamin D, ergocalciferol, (Drisdol) 1.25 MG (76544 UT) capsule 1 (one) capsule every 7 [...] (Claritin) 10 MG tablet once daily 12/31/2022 Discontinue d(List Clean-Up) Active Problems Problem Noted [...] Sex Assigned at Female 07/19/2022 2:59 PM FIRE DISPATCHER Gender Identity Female 07/19/2022 2:59 PM FIRE DISPATCHER Sexual Orientation Straight 07/19/2022 2: 59 PM FIRE DISPATCHER Travel History Travel Start Travel End [place] 09/07/2024 09/07/2024 Last Filed Vital Signs Vital Sign Reading Time Taken Comments Blood Pressure 151/94 09/07/2024 9:55 AM FIRE DISPATCHER Pulse 90 09/07/2024 9:55 AM FIRE DISPATCHER Temperature 36.6 C (97.9 F) 09/07/2024 9:55 AM FIRE DISPATCHER Respiratory Rate 14 05/16/2023 11:17 AM CDT Oxygen Saturation 92% 09/07/2024 9:55 AM FIRE DISPATCHER Inhaled Oxygen Concentration - - Weight 150.1 kg (331 lb) 09/07/2024 9:55 AM FIRE DISPATCHER Height 165.1 cm (5' 5 ) 09/07/2024 9:55 AM FIRE DISPATCHER Body Mass Index 55.08 09/07/2024 9:55 AM FIRE DISPATCHER Functional Status Functional Status Response Date of [...] Description 05/06/2025 10:00 AM CDT Office Visit [facility] - Urology [address], [address] [place] [address] Janny Torres MD [address] [place] [address] Medical Devices Implanted Type Area Ski Lift Attendant Device Identifier Shelf Expiration Date Model / Serial / Lot Stent Uret 6fr 22-30cm Pgtl Crv Tpr Tip Implanted:Qty: 1 on 10/05/2022 by Janny Torres MD at [facility] Right: [employer]imed 06/24/2025 [id number] / / [id number] Procedures Procedure Name Priority Date/Time Associated Diagnosis Comments BASIC METABOLIC PANEL (CALCIUM TOTAL) TEQUILA 05/16/2023 8:31 AM CDT Right renal stone from Last 3 Months or Most Recently Relevant to Health Maintenance Results * (ABNORMAL) BASIC METABOLIC PANEL (CALCIUM TOTAL) (05/16/2023 8:31 AM CDT) Glucose 107(H) 70 - 105 mg/dL 05/16/2023 8:55 AM CDT [facility] Sodium 141 136 - 145 mmol/L 05/16/2023 8:55 AM CDT [facility] Potassium 4.0 3.5 - 5.1 mmol/L 05/16/2023 8:55 AM CDT [facility] Chloride 102 98 - 107 mmol/L 05/16/2023 8:55 AM CDT [facility] CO2 29 22 - 29 mmol/L 05/16/2023 8:55 AM CDT [facility] Calcium 9.4 8.4 - 10.4 mg/dL 05/16/2023 8:55 AM CDT [facility] Anion Gap 10 6 - 16 mmol/L 05/16/2023 8:55 AM CDT [facility] BUN 20 7 - 26 mg/dL 05/16/2023 8:55 AM CDT [facility] Creatinine 1.37(H) 0.57 - 1.11 mg/dL 05/16/2023 8:55 AM CDT [facility] eGFR by CKD-EPI 42(L) >=90 mL/min/1.7 3 m2 05/16/2023 8:55 AM CDT [facility] Blood BLOOD SPECIMEN / Unknown Venipuncture / Unknown 05/16/2023 8:31 AM CDT 05/16/2023 8:38 AM CDT Chan Sarkar MD LAB - CHEMISTRY SHRADDHA JOYA [facility] Organization Address City/State/ZIP Co de Phone Number [facility] [address] [place] [address] from Last 3 Months or Most Recently Relevant to Health Maintenance Advance Directives * Full Code (Latest Code Status on File) Date Activated Date Inactivated Comments 10/05/2022 2:55 PM 10/06/2022 3:16 PM * Full Code Date Activated Date Inactivated Comments 01/06/2014 10:09 PM 01/10/2014 2:39 PM Care Teams Licensed Nurse Practitioner Relationship Specialty Start Date End Date Noé Lew MD [address] [place] [address] PCP - General Internal Medicine 07/04/24 Janny Torres MD [address] [place] [address] [address] [place] [address] Physician Urology 05/07/24
--- OUTSIDE RECORDS SUMMARY | 2024-10-06 09:28 | XMS_ITS | Encounter Summary ---
Author Organization [facility] Address [address] [place] [address] Care Team Providers Care Punchboard Inserter Name Role Phone Martha Arriaga MD Primary Care Provid er Encounter Details Date Type Department Care Team (Late st Contact Info) Description 12/22/2004 Outpatient Historical [facility] Hyperbaric and Wound Treatment Center - [facility] [address] [place] [address] [place] [address] [place] [address] Social History Tobacco Use Types Packs/Day Years Used Date Smoking Tobacco: Never Assessed Comments Unknown Sex and Gender Information Value Date Recorded Sex Assigned at Not on file Legal Sex Female 3:23 AM THEATRE ARTS PROFESSOR Gender Identity Not on file Sexual Orientation Not on file documented as of this encounter Plan of Treatment Not on file documented as of this encounter Visit Diagnoses Not on filedocumented in this encounter Care Teams Punchboard Inserter Relationship Specialty Start Date End Date Martha Arriaga MD PCP - General Internal Medicine 05/10/20 documented as of this encounter
--- OUTSIDE RECORDS SUMMARY | 2024-10-06 09:28 | XMS_ITS | Encounter Summary ---
Author Organization [employer] Address [address] [place] [address] Care Team Providers Care Painter Ordnance Name Role Phone Martha Arriaga MD Primary Care Provid er Encounter Details Date Type Department Care Team (Latest Contact Info) Description 10/14/2002 Outpatient Historical [facility] Noé Lobato MD [address] [place] [address] CONTUSION OF KNEE (Primary Dx) Social History Tobacco Use Types Packs/Day Years Used Date Smoking Tobacco: Never Assessed Comments Unknown Sex and Gender Information Value Date Recorded Sex Assigned at Not on file Legal Sex Female 3:23 AM HIGHER LEVEL TEACHING ASSISTANT Gender Identity Not on file Sexual Orientation Not on file documented as of this encounter Plan of Treatment Not on file documented as of this encounter Visit Diagnoses Diagnosis Contusion of knee- Primary documented in this encounter Care Teams Painter Ordnance Relationship Specialty Start Date End Date Martha Arriaga MD PCP - General Internal Medicine 05/10/20 documented as of this encounter
--- OUTSIDE RECORDS SUMMARY | 2024-10-06 09:28 | XMS_ITS | Encounter Summary ---
Author Organization [facility] Address [address] [place] [address] Care Team Providers Care Commercial Artist Name Role Phone Martha Arriaga MD Primary Care Provid er Encounter Details Date Type Department Care Team (Late st Contact Info) Description 10/27/2002 Outpatient Historical [facility] Internal Medicine - [place] [address] [place] [phone] [place]awn Saldaña [place] [address] [place] [place] [address] Social History Tobacco Use Types Packs/Day Years Used Date Smoking Tobacco: Never Assessed Comments Unknown Sex and Gender Information Value Date Recorded Sex Assigned at Not on file Legal Sex Female 3:23 AM SCALLOP CUTTER MACHINE Gender Identity Not on file Sexual Orientation Not on file documented as of this encounter Plan of Treatment Not on file documented as of this encounter Visit Diagnoses Not on filedocumented in this encounter Care Teams Commercial Artist Relationship Specialty Start Date End Date Martha Arriaga MD PCP - General Internal Medicine 05/10/20 documented as of this encounter
--- OUTSIDE RECORDS SUMMARY | 2024-10-06 09:28 | XMS_ITS | Encounter Summary ---
Author Organization [facility] Address [address] [place] [address] Care Team Providers Care Side Gluer Name Role Phone Martha Arriaga MD Primary Care Provid er Encounter Details Date Type Department Care Team (Late st Contact Info) Description 04/26/2005 Outpatient Historical [facility] [address] [place] [phone] Luis Carlos Saldaña Social History Tobacco Use Types Packs/Day Years Used Date Smoking Tobacco: Never Assessed Comments Unknown Sex and Gender Information Value Date Recorded Sex Assigned at Not on file Legal Sex Female 3:23 AM CONTENT DEVELOPMENT MANAGER Gender Identity Not on file Sexual Orientation Not on file documented as of this encounter Plan of Treatment Not on file documented as of this encounter Visit Diagnoses Not on filedocumented in this encounter Care Teams Side Gluer Relationship Specialty Start Date End Date Martha Arriaga MD PCP - General Internal Medicine 05/10/20 documented as of this encounter
--- OUTSIDE RECORDS SUMMARY | 2024-10-06 09:28 | XMS_ITS | Encounter Summary ---
Author Organization [employer] Address [address] [place] [address] Care Team Providers Care Middle [employer] English Teacher Name Role Phone Martha Arriaga MD [...] on file Legal Sex Female 3:23 AM MINE MOTOR ENGINEER Gender Identity Not on file Sexual Orientation Not on file documented as of this encounter Plan of Treatment Not on file documented as of this encounter Visit Diagnoses Diagnosis Effusion of lower leg joint- Primary documented in this encounter Care Teams Middle School English Teacher Relationship Specialty Start Date End Date Martha Arriaga MD PCP - General Internal Medicine 05/10/20 documented as of this encounter
--- OUTSIDE RECORDS SUMMARY | 2024-10-06 09:28 | XMS_ITS | Encounter Summary ---
Author Organization [employer] Address [address] [place] [address] Care Team Providers Care Php Web Developer Name Role Phone Martha Arriaga MD Primary Care Provid er Encounter Details Date Type Department Care Team (Late st Contact Info) Description 08/27/2006 Outpatient Historical [facility] EM[facility] Luis Carlos Blackwell MD [address] [place], [place] [phone] Er, Authorized P NO ADDRESS ON FILE Contusion of Back (Primary Dx) Social History Tobacco Use Types Packs/Day Years Used Date Smoking Tobacco: Never Assessed Comments Unknown Sex and Gender Information Value Date Recorded Sex Assigned at Not on file Legal Sex Female 3:23 AM FINISHING ROOM SUPERVISOR Gender Identity Not on file Sexual Orientation Not on file documented as of this encounter Plan of Treatment Not on file documented as of this encounter Visit Diagnoses Diagnosis Contusion of back(922.31)- Primary Contusion of back documented in this encounter Care Teams Php Web Developer Relationship Specialty Start Date End Date Martha Arriaga MD PCP - General Internal Medicine 05/10/20 documented as of this encounter
--- OUTSIDE RECORDS SUMMARY | 2024-10-06 09:29 | XMS_ITS | Encounter Summary ---
Author Organization [facility] Address [address] [place] [address] Care Team Providers Care Regional Production Manager Name Role Phone Martha Arriaga MD Primary Care Provid er Encounter Details Date Type Department Care Team (Late st Contact Info) Description 07/12/2003 Outpatient Historical [facility] Internal Medicine - [place] [address] [place] [phone] Lashawn Saldaña [place] [address] [place] [address] Social History Tobacco Use Types Packs/Day Years Used Date Smoking Tobacco: Never Assessed Comments Unknown Sex and Gender Information Value Date Recorded Sex Assigned at Not on file Legal Sex Female 3:23 AM COST CONTROL ANALYST Gender Identity Not on file Sexual Orientation Not on file documented as of this encounter Last Filed Vital Signs Vital Sign Reading Time Taken Comments Blood Pressure 118/78 07/12/2003 11:30 AM COST CONTROL ANALYST Pulse 78 07/12/2003 11:30 AM COST CONTROL ANALYST Temperature - - Respiratory Rate - - Oxygen Saturation - - Inhaled Oxygen Concentration - - Weight 120.7 kg (266 lb) 07/12/2003 11:30 AM COST CONTROL ANALYST Height - - Body Mass Index - - documented in this encounter Plan of Treatment Not on file documented as of this encounter Visit Diagnoses Not on filedocumented in this encounter Care Teams Regional Production Manager Relationship Specialty Start Date End Date Martha Arriaga MD PCP - General Internal Medicine 05/10/20 documented as of this encounter
--- OUTSIDE RECORDS SUMMARY | 2024-10-06 09:29 | XMS_ITS | Encounter Summary ---
Author Organization [facility] Address [address] [place] [address] Care Team Providers Care Clinical Statistical Programmer Name Role Phone Martha Arriaga MD Primary Care Provid er Encounter Details Date Type Department Care Team (Latest Contact Info) Description 07/12/2003 Outpatient Historical [facility] Saldaña, Luis Carlos SIMMONS W MANIF NEC ADULT ([facility]) (Primary Dx) Social History Tobacco Use Types Packs/Day Years Used Date Smoking Tobacco: Never Assessed Comments Unknown Sex and Gender Information Value Date Recorded Sex Assigned at Not on file Legal Sex Female 3:23 AM HIGH RISK OB Gender Identity Not on file Sexual Orientation Not on file documented as of this encounter Plan of Treatment Not on file documented as of this encounter Visit Diagnoses Diagnosis Type II or unspecified type diabetes mellitus with other specified manifestations, not stated as uncontrolled ([facility])- Primary Type II or unspecified type diabetes mellitus with other specified manifestations, not stated as uncontrolled documented in this encounter Care Teams Clinical Statistical Programmer Relationship Specialty Start Date End Date Martha Arriaga MD PCP - General Internal Medicine 05/10/20 documented as of this encounter
--- OUTSIDE RECORDS SUMMARY | 2024-10-06 09:29 | XMS_ITS | Encounter Summary ---
Author Organization [employer] Address [address] [place] [address] Care Team Providers Care Sizing Machine Tender Name Role Phone Martha Arriaga MD [...] on file Legal Sex Female 3:23 AM TEST LAB TECHNICIAN Gender Identity Not on file Sexual Orientation Not on file documented as of this encounter Plan of Treatment Not on file documented as of this encounter Visit Diagnoses Diagnosis Pain in limb- Primary documented in this encounter Care Teams Sizing Machine Tender Relationship Specialty Start Date End Date Mratha Arriaga MD PCP - General Internal Medicine 05/10/20 documented as of this encounter
--- OUTSIDE RECORDS SUMMARY | 2024-10-06 09:29 | XMS_ITS | Encounter Summary ---
Author Organization [employer] Address [address] [place] [address] Care Team Providers Care Canned Food Reconditioning Inspector Name Role Phone Martha Arriaga MD Primary Care Provid er Encounter Details Date Type Department Care Team (Latest Contact Info) Description 01/07/2000 Inpatient Historical [facility] PATIENT IN A BED [facility] Incisional hernia without mention of obstruction or gangrene (Primary Dx) Social History Tobacco Use Types Packs/Day Years Used Date Smoking Tobacco: Never Assessed Comments Unknown Sex and Gender Information Value Date Recorded Sex Assigned at Not on file Legal Sex Female 3:23 AM SOFTBALL UMPIRE Gender Identity Not on file Sexual Orientation Not on file documented as of this encounter Plan of Treatment Not on file documented as of this encounter Visit Diagnoses Diagnosis Incisional hernia without mention of obstruction or gangrene- Primary documented in this encounter Care Teams Canned Food Reconditioning Inspector Relationship Specialty Start Date End Date Martha Arriaga MD PCP - General Internal Medicine 05/10/20 documented as of this encounter
--- OUTSIDE RECORDS SUMMARY | 2024-10-06 09:29 | XMS_ITS | Encounter Summary ---
Author Organization [employer] Address [address] [place] [address] Care Team Providers Care Public Health Veterinarian Name Role Phone Martha Arriaga MD Primary [...] on file Legal Sex Female 3:23 AM PRESCHOOL ASSISTANT Gender Identity Not on file Sexual Orientation Not on file documented as of this encounter Plan of Treatment Not on file documented as of this encounter Visit Diagnoses Diagnosis Other chronic nonalcoholic liver disease- Primary documented in this encounter Care Teams Public Health Veterinarian Relationship Specialty Start Date End Date Martha Arriaga MD PCP - General Internal Medicine 05/10/20 documented as of this encounter
--- OUTSIDE RECORDS SUMMARY | 2024-10-06 09:29 | XMS_ITS | Encounter Summary ---
Author Organization [employer] Address [address] [place] [address] Care Team Providers Care Technology Risk Intern Name Role Phone Martha Arriaga MD Primary Care Provid er Encounter Details Date Type Department Care Team (Latest Contact Info) Description 05/04/1999 Outpatient Historical [facility] LAB,NON-PATIENT Baldev Tolbert MD [address] [facility] [address] [place] [phone] Screening for malignant neoplasm of the cervix (Primary Dx) Social History Tobacco Use Types Packs/Day Years Used Date Smoking Tobacco: Never Assessed Comments Unknown Sex and Gender Information Value Date Recorded Sex Assigned at Not on file Legal Sex Female 3:23 AM GARDENING MANAGER Gender Identity Not on file Sexual Orientation Not on file documented as of this encounter Plan of Treatment Not on file documented as of this encounter Visit Diagnoses Diagnosis Screening for malignant neoplasm of the cervix- Primary documented in this encounter Care Teams Technology Risk Intern Relationship Specialty Start Date End Date Martha Arriaga MD PCP - General Internal Medicine 05/10/20 documented as of this encounter
--- OUTSIDE RECORDS SUMMARY | 2024-10-06 09:29 | XMS_ITS | Encounter Summary ---
Author Organization [employer] [facility] Address [address] [place] [address] Care Team Providers Care Pipe Fitter Helper Name Role Phone Martha Arriaga MD Primary Care Provid er Encounter Details Date Type Department Care Team (Late st Contact Info) Description 11/01/2003 [facility] Social History Tobacco Use Types Packs/Day Years Used Date Smoking Tobacco: Never Assessed Comments Unknown Sex and Gender Information Value Date Recorded Sex Assigned at Not on file Legal Sex Female 3:23 AM OB/GYN Gender Identity Not on file Sexual Orientation Not on file documented as of this encounter Plan of Treatment Not on file documented as of this encounter Visit Diagnoses Not on filedocumented in this encounter Care Teams Pipe Fitter Helper Relationship Specialty Start Date End Date Martha Arriaga MD PCP - General Internal Medicine 05/10/20 documented as of this encounter
--- OUTSIDE RECORDS SUMMARY | 2024-10-06 09:29 | XMS_ITS | Encounter Summary ---
Author Organization [employer] Address [address] [place] [address] Care Team Providers Care Planer Off Bearer Name Role Phone Martha Arriaga MD Primary Care Provid er Encounter Details Date Type Department Care Team (Latest Contact Info) Description 06/16/2004 Inpatient Historical [facility] PATIENT IN A BED Khris Simeon MD [address] [place] [address] OTHER POSTOP INFECTION (Primary Dx) Social History Tobacco Use Types Packs/Day Years Used Date Smoking Tobacco: Never Assessed Comments Unknown Sex and Gender Information Value Date Recorded Sex Assigned at Not on file Legal Sex Female 3:23 AM COFFEE PLANTATION WORKER Gender Identity Not on file Sexual Orientation Not on file documented as of this encounter Plan of Treatment Not on file documented as of this encounter Visit Diagnoses Diagnosis Other postoperative infection- Primary documented in this encounter Care Teams Planer Off Bearer Relationship Specialty Start Date End Date Martha Arriaga MD PCP - General Internal Medicine 05/10/20 documented as of this encounter
--- OUTSIDE RECORDS SUMMARY | 2024-10-06 09:29 | XMS_ITS | Encounter Summary ---
Author Organization [facility] Address [address] [place] [address] Care Team Providers Care Cognos Bi Administrator Name Role Phone Martha Arriaga MD Primary Care Provid er Encounter Details Date Type Department Care Team (Late st Contact Info) Description 03/20/2001 Outpatient Historical [facility] Internal Medicine Medical [place] A [facility] [address] [place] [phone] Cheikh Tsang MD [address] [facility] [address] [place], [place] [id number] Social History Tobacco Use Types Packs/Day Years Used Date Smoking Tobacco: Never Assessed Comments Unknown Sex and Gender Information Value Date Recorded Sex Assigned at Not on file Legal Sex Female 3:23 AM JEWEL HOLE CORNERER Gender Identity Not on file Sexual Orientation Not on file documented as of this encounter Plan of Treatment Not on file documented as of this encounter Visit Diagnoses Not on filedocumented in this encounter Care Teams Cognos Bi Administrator Relationship Specialty Start Date End Date Martha Arriaga MD PCP - General Internal Medicine 05/10/20 documented as of this encounter
--- OUTSIDE RECORDS SUMMARY | 2024-10-06 09:29 | XMS_ITS | Encounter Summary ---
Author Organization [employer] Address [address] [place] [address] Care Team Providers Care Toucher Up Name Role Phone Martha Arriaga MD Primary Care Provid er Encounter Details Date Type Department Care Team (Latest Contact Info) Description 01/06/1999 Outpatient Historical [facility] CARDIOPULMONARY Cheikh Tsang MD [facility] [address] [place] [address] Pain in limb (Primary Dx) Social History Tobacco Use Types Packs/Day Years Used Date Smoking Tobacco: Never Assessed Comments Unknown Sex and Gender Information Value Date Recorded Sex Assigned at Not on file Legal Sex Female 3:23 AM FLAT CLOTHIER Gender Identity Not on file Sexual Orientation Not on file documented as of this encounter Plan of Treatment Not on file documented as of this encounter Visit Diagnoses Diagnosis Pain in limb- Primary documented in this encounter Care Teams Toucher Up Relationship Specialty Start Date End Date Martha Arriaga MD PCP - General Internal Medicine 05/10/20 documented as of this encounter
--- OUTSIDE RECORDS SUMMARY | 2024-10-06 09:29 | XMS_ITS | Clinical Summary ---
Author Organization [email or web address] [facility] [address] Address [address] 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 DICTATION LOCATION: [facility] TECHNIQUE: Full-field digital craniocaudal and mediolateral oblique [...] Most Recently Relevant to Health Maintenance Insurance [facility] [id number] Care Teams Support Staff Relationship Specialty Start Date End Date Martha Arriaga MD PCP - General Internal Medicine 05/10/20
--- OUTSIDE RECORDS SUMMARY | 2024-10-06 09:29 | XMS_ITS | Encounter Summary ---
Author Organization [employer] Address 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
--- OUTSIDE RECORDS SUMMARY | 2024-10-06 09:29 | XMS_ITS | Encounter Summary ---
Author Organization [facility] Address [address] [place] [address] Care Team Providers Care Machine Or Machinery Mechanic Name Role Phone Martha Arriaga MD Primary Care Provid er Encounter Details Date Type Department Care Team (Late st Contact Info) Description 06/16/2004 Outpatient Historical [facility] [address] [place] [address] Khris Simeon MD [address] [place] [address] Social History Tobacco Use Types Packs/Day Years Used Date Smoking Tobacco: Never Assessed Comments Unknown Sex and Gender Information Value Date Recorded Sex Assigned at Not on file Legal Sex Female 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
--- OUTSIDE RECORDS SUMMARY | 2024-10-06 09:29 | XMS_ITS | Encounter Summary ---
Author Organization [employer] Address [address] [place] [address] Care Team Providers Care Crab Catcher Name Role Phone Martha Arriaga MD Primary Care Provid er Encounter Details Date Type Department Care Team (Late st Contact Info) Description 11/15/2002 Outpatient Historical [facility] Noé Lobato MD [address] [place] [address] Social History Tobacco Use Types Packs/Day Years Used Date Smoking Tobacco: Never Assessed Comments Unknown Sex and Gender Information Value Date Recorded Sex Assigned at Not on file Legal Sex Female 3:23 AM MORTGAGE ADVISOR Gender Identity Not on file Sexual Orientation Not on file documented as of this encounter Plan of Treatment Not on file documented as of this encounter Visit Diagnoses Not on filedocumented in this encounter Care Teams Crab Catcher Relationship Specialty Start Date End Date Martha Arriaga MD PCP - General Internal Medicine 05/10/20 documented as of this encounter
--- OUTSIDE RECORDS SUMMARY | 2024-10-06 09:29 | XMS_ITS | Encounter Summary ---
Author Organization [facility] Address [address] [place] [address] Care Team Providers Care Commercial Lines Manager Name Role Phone Martha Arriaga MD Primary Care Provid er Encounter Details Date Type Department Care Team (Late st Contact Info) Description 06/27/2004 Outpatient Historical [facility] - [facility] [address] [place] [address] [place] [address] [place] [address] Social History Tobacco Use Types Packs/Day Years Used Date Smoking Tobacco: Never Assessed Comments Unknown Sex and Gender Information Value Date Recorded Sex Assigned at Not on file Legal Sex Female 3:23 AM TRIAL MGR Gender Identity Not on file Sexual Orientation Not on file documented as of this encounter Plan of Treatment Not on file documented as of this encounter Visit Diagnoses Not on filedocumented in this encounter Care Teams Commercial Lines Manager Relationship Specialty Start Date End Date Martha Arriaga MD PCP - General Internal Medicine 05/10/20 documented as of this encounter
--- OUTSIDE RECORDS SUMMARY | 2024-10-06 09:29 | XMS_ITS | Encounter Summary ---
Author Organization [facility] Address [address] [place] [address] Care Team Providers Care Spar Machine Operator Name Role Phone Martha Arriaga MD Primary Care Provid er Encounter Details Date Type Department Care Team (Late st Contact Info) Description 07/03/1999 Outpatient Historical [facility] Internal Medicine Medical [place] [facility] [address] [facility] [address] [place] [address] Cheikh Tsang MD [address] [facility] [address] [place], [place] [id number] Social History Tobacco Use Types Packs/Day Years Used Date Smoking Tobacco: Never Assessed Comments Unknown Sex and Gender Information Value Date Recorded Sex Assigned at Not on file Legal Sex Female 3:23 AM SR. LOGISTICS ANALYST Gender Identity Not on file Sexual Orientation Not on file documented as of this encounter Plan of Treatment Not on file documented as of this encounter Visit Diagnoses Not on filedocumented in this encounter Care Teams Spar Machine Operator Relationship Specialty Start Date End Date Martha Arriaga MD PCP - General Internal Medicine 05/10/20 documented as of this encounter
--- OUTSIDE RECORDS SUMMARY | 2024-10-06 09:29 | XMS_ITS | Encounter Summary ---
Author Organization [facility] Address [address] [place] [address] Care Team Providers Care General Pediatrician Name Role Phone Martha Arriaga MD Primary Care Provid er Encounter Details Date Type Department Care Team (Latest Contact Info) Description 06/19/2004 Outpatient Historical [facility] [address] [place] [address] Luis Carlos Saldaña OPEN WOUND KNEE/LEG-COMPL (Primary Dx) Social History Tobacco Use Types Packs/Day Years Used Date Smoking Tobacco: Never Assessed Comments Unknown Sex and Gender Information Value Date Recorded Sex Assigned at Not on file Legal Sex Female 3:23 AM BARREL PLATER Gender Identity Not on file Sexual Orientation Not on file documented as of this encounter Plan of Treatment Not on file documented as of this encounter Visit Diagnoses Diagnosis Open wound of knee, leg (except thigh), and ankle, complicated- Primary documented in this encounter Care Teams General Pediatrician Relationship Specialty Start Date End Date Martha Arriaga MD PCP - General Internal Medicine 05/10/20 documented as of this encounter
--- OUTSIDE RECORDS SUMMARY | 2024-10-06 09:29 | XMS_ITS | Encounter Summary ---
Author Organization [facility] Address [address] [place] [address] Care Team Providers Care Outsole Leveler Name Role Phone Martha Arriaga MD Primary Care Provid er Encounter Details Date Type Department Care Team (Late st Contact Info) Description 05/15/2004 Outpatient Historical [facility] Internal Medicine - [place] [address] [place] [id number] [place]ña [place] [address] [place] [phone] Social History Tobacco Use Types Packs/Day Years Used Date Smoking Tobacco: Never Assessed Comments Unknown Sex and Gender Information Value Date Recorded Sex Assigned at Not on file Legal Sex Female 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
--- OUTSIDE RECORDS SUMMARY | 2024-10-06 09:29 | XMS_ITS | Encounter Summary ---
Author Organization [facility] Address [address] [place] [address] Care Team Providers Care Radiology Interventional Physician Name Role Phone Martha Arriaga MD Primary Care Provid er Encounter Details Date Type Department Care Team (Late st Contact Info) Description 10/30/2001 Outpatient Historical [facility] Internal Medicine Medical [place] A [facility] [address] [facility] [address] [place] [phone] Cheikh Tsang MD [address] [facility] [address] [place], [place] [id number] Social History Tobacco Use Types Packs/Day Years Used Date Smoking Tobacco: Never Assessed Comments Unknown Sex and Gender Information Value Date Recorded Sex Assigned at Not on file Legal Sex Female 3:23 AM HIDE HANDLER Gender Identity Not on file Sexual Orientation Not on file documented as of this encounter Plan of Treatment Not on file documented as of this encounter Visit Diagnoses Not on filedocumented in this encounter Care Teams Radiology Interventional Physician Relationship Specialty Start Date End Date Martha Arriaga MD PCP - General Internal Medicine 05/10/20 documented as of this encounter
--- OUTSIDE RECORDS SUMMARY | 2024-10-06 09:29 | XMS_ITS | Encounter Summary ---
Author Organization [facility] Address [address] [place] [address] Care Team Providers Care Software Quality Engineer Name Role Phone Martha Arriaga MD Primary Care Provid er Encounter Details Date Type Department Care Team (Late st Contact Info) Description 05/08/2004 Outpatient Historical [facility] Bernard Mcmillan MD [address] [id number] [place], Authorized P NO ADDRESS ON FILE SPRAIN OF NECK (Primary Dx) Social History Tobacco Use Types Packs/Day Years Used Date Smoking Tobacco: Never Assessed Comments Unknown Sex and Gender Information Value Date Recorded Sex Assigned at Not on file Legal Sex Female 3:23 AM CHIEF CREDIT OFFICER Gender Identity Not on file Sexual Orientation Not on file documented as of this encounter Plan of Treatment Not on file documented as of this encounter Visit Diagnoses Diagnosis Sprain of neck- Primary documented in this encounter Care Teams Software Quality Engineer Relationship Specialty Start Date End Date Martha Arriaga MD PCP - General Internal Medicine 05/10/20 documented as of this encounter
--- OUTSIDE RECORDS SUMMARY | 2024-10-06 09:29 | XMS_ITS | Patient Health Summary ---
Author Organization [facility] Address [address] [place] [address] Care Team Providers Care Head Greenskeeper Name Role Phone Janny Torres MD Unavailable [phone] Noé Lew MD Primary Care Provider [phone] Note from [facility],non-owned Affiliates and Associated Physician Practices is amultiple site organization consisting of ambulatory clinics and hospital sitesin [place], [place] and [place]. This disclosure is being madepursuant to the Care Everywhere program and may not contain all information available regarding this patient. Last updated 18.[facility] Allergies * Codeine(Anaphylaxis) -High Criticality * [...] * vitamin D, ergocalciferol, (Drisdol) 1.25 MG (37686 UT) capsule(Started 06/25/2024) 1 (one) capsule every [...] Sex Assigned at Female 07/19/2022 2:59 PM RESTAURANT EXPEDITOR Gender Identity Female 07/19/2022 2:59 PM RESTAURANT EXPEDITOR Sexual Orientation Straight 07/19/2022 2: 59 PM RESTAURANT EXPEDITOR Travel History Travel Start Travel End [place] 09/07/2024 09/07/2024 Last Filed Vital Signs Vital Sign Reading Time Taken Comments Blood Pressure 151/94 09/07/2024 9:55 AM RESTAURANT EXPEDITOR Pulse 90 09/07/2024 9:55 AM RESTAURANT EXPEDITOR Temperature 36.6 C (97.9 F) 09/07/2024 9:55 AM RESTAURANT EXPEDITOR Respiratory Rate 14 05/16/2023 11:17 AM CDT Oxygen Saturation 92% 09/07/2024 9:55 AM RESTAURANT EXPEDITOR Inhaled Oxygen Concentration - - Weight 150.1 kg (331 lb) 09/07/2024 9:55 AM RESTAURANT EXPEDITOR Height 165.1 cm (5' 5 ) 09/07/2024 9:55 AM RESTAURANT EXPEDITOR Body Mass Index 55.08 09/07/2024 9:55 AM RESTAURANT EXPEDITOR Medical Devices Implanted Type Area Addictions Counselor Assistant Device Identifier Shelf Expiration Date Model / Serial / Lot Stent Uret 6fr 22-30cm Pgtl Crv Tpr Tip Implanted:Qty: 1 on 10/05/2022 by Janny Torres MD at [facility] Right: Ure[employer] 06/24/2025 [id number] / / [id number] Procedures * CT ABDOMEN PELVIS W CONTRAST(Performed [...] 10/05/2022) Performed for Calculus of ureter * CO PERCUT REMV KID STONE,2+ CM(Performed 10/05/2022) * [...] 08/24/2022) * LARYNGEAL MASK AIRWAY(Performed 08/22/2022) * CO CYSTOSCOPY,REMV CALCULUS,SIMPLE(Performed 08/22/2022) Performed for N20.0 * CO FRAGMENTING OF KIDNEY STONE(Performed 08/22/2022) Performed for [...] Abdomen Pelvis W Contrast (07/04/2024 4:27 PM RESTAURANT EXPEDITOR) Anatomical Region Laterality Modality Abdomen, Pelvis Computed Tomogra phy 07/05/2024 9:07 AM RESTAURANT EXPEDITOR Impressions 07/05/2024 9:25 AM RESTAURANT EXPEDITOR IMPRESSION: 1.Hepatomegaly with steatosis 2.Multiple ventral hernias as described. No bowel obstruction. 3.Decreased collection within the right kidney. Follow-up ultrasound recommended. 4.Nonobstructing left renal calculi 5.Hiatal hernia 6.Right adnexal cyst 7.Cardiomegaly > Interpreting Provider: Kelton Reyna MD on 07/05/2024 9:25 AM Narrative 07/05/2024 9:[address] ABDOMEN WITH CONTRAST CT PELVIS WITH [...] CREATININE - POCT INTERFACED (07/04/2024 4:06 PM RESTAURANT EXPEDITOR) Creatinine POCT 0.86 0.70 - 1.20 mg/dL 07/04/2024 4:14 PM RESTAURANT EXPEDITOR [facility] eGFR 73(L) >=90 mL/min/1.7 3 m2 07/04/2024 4:14 PM RESTAURANT EXPEDITOR [facility] Blood BLOOD SPECIMEN / Unknown 07/04/2024 4:06 PM RESTAURANT EXPEDITOR 07/04/2024 4:14 PM RESTAURANT EXPEDITOR Provider Unknown LAB - POINT OF CARE ORDERABLES [facility] [address] [place] [address] * PTH INTACT (05/07/2024 12:54 PM CDT) PTH Intact 57 15 - 65 pg/mL [facility] ACCOUNT BILL 05/07/2024 12:5 4 PM CDT 05/07/2024 Narrative [facility] ACCOUNT BILL - 05/08/2024 10:11 AM CDT Performed at: 01 - [facility] [id number] Dietitian Helper: Danny Lemos PhD, Phone: [phone] Janny Torres MD LAB - CHEMISTRY OR DERABLES [facility] ACCOUNT BILL [address] [place] [address] * XR ABDOMEN KUB (05/01/2024 11:08 AM [...] was placed supine on the procedure table. Review Appraiser radiograph of the left lower quadrant was [...] was placed supine on the procedure table. Review Appraiser radiograph of the left lower quadrant was [...] the procedure [facility]. [facility] [...] CDT Impression: CT-guided placement of an 8 Comoran pigtail drainage catheter in right renal hematoma, [...] evaluation, please review the evaluation forms in [facility]. For details on monitored clinical parameters during the intra-service sedation time, please review the procedure nurse documentation in [facility]. > Interpreting Provider: Angelito Driscoll MD on 05/17/2023 4:47 PM Narrative 05/17/2023 4:47 PM CDT History: Right renal hematoma complicated by Page kidney Operators: 1.Angelito Driscoll MD Anesthesia: 1.Local anesthesia - 10 mL of 1% Lidocaine 2.Intravenous conscious sedation - Versed 2.5 mg and Fentanyl 125 mcg Procedure: 1.Limited noncontrast CT of the abdomen. 2.CT-guided placement of 8 Comoran pigtail drainage catheter in a subcapsular right [...] was provided with 1% Lidocaine. A 5 Comoran co-axial needle system was advanced in stages under CT guidance. Upon aspiration of fluid, the outer-sheath was advanced within the collection. A 0.035 inch guidewire was looped within the collection, and following series of dilatation/exchanges, a 8 [place]oran pigtail drainage catheter was advanced into the [...] of the abdomen. 2.CT-guided placement of 8 [place]an pigtail drainage catheter in a subcapsular right [...] was provided with 1% Lidocaine. A 5 [place]oran co-axialneedle system was advanced in stages under CT guidance. Upon aspiration offluid, the outer-sheath was advanced within the collection. A 0.035 inchguidewire was looped within the collection, and following series of dilatation/exchanges, a 8 [place]oran pigtail drainage catheter was advanced into the [...] the procedure well and [facility]. There were no immediate complicationsassociated with the procedure. Impression: CT-guided placement of an 8 Comoran pigtail drainage catheterin right renal hematoma, as [...] evaluation, please review the evaluation forms in [facility]. For details on monitored clinical parameters during the intra-service sedation time, please review the procedure nurse documentation in [facility]. > Interpreting Provider: Angelito Driscoll MD on [...] LAB - MICROBIOLOGY ORDERABLES Performing Organization Address City/[facility]/ZIP Co de Phone Number [facility] MICROBIOLOGY [address] [place] [address], [facility] [phone] * CULTURE FUNGUS OTHER+FUNGUS SMEAR (05/16/2023 10:49 AM CDT) Culture No fungus isolated [place] 06/10/2023 8:16 AM CDT [facility] Fungus Stain No yeast or hyphae seen 06/10/2023 8:16 AM CDT [facility] MICROBIOLOGY Microbiology ENTIRE KIDNEY / Unknown Collection / Unknown 05/16/2023 10:49 AM CDT 05/16/2023 12:07 PM CDT Janny Torres MD LAB - MICROBIOLOGY ORDERABLES [facility] MICROBIOLOGY [address] [place] [address], [facility] [phone] * CULTURE AFB+SMEAR (05/16/2023 10:49 AM CDT) Culture No acid-fast bacillus isolated 06/24/2023 7:31 AM RESTAURANT EXPEDITOR [facility] AFB Smear No acid-fast bacilli seen 06/24/2023 7:31 AM RESTAURANT EXPEDITOR [facility] Microbiology ENTIRE KIDNEY / Unknown Collection / Unknown 05/16/2023 10:49 AM CDT 05/16/2023 12:07 PM CDT Janny Torres MD LAB - MICROBIOLOGY ORDERABLES Performing Organization Address City/[facility] Co de Phone Number [facility] MICROBIOLOGY [address] [place] [address], [facility] [phone] * CULTURE ANAEROBE (05/16/2023 10:49 AM CDT) Only the most recent of3 resultswithin the time period is included. Culture No anaerobic organisms isolated [place] 05/21/2023 7:48 AM CDT [facility] MICROBIOLOGY Microbiology ENTIRE KIDNEY / Unknown Collection / Unknown 05/16/2023 10:49 AM CDT 05/16/2023 12:07 PM CDT Janny Torres MD LAB - MICROBIOLOGY ORDERABLES Performing Organization Address [facility] de Phone Number [facility] MICROBIOLOGY [address] [place] [address], [facility] [phone] * PT-INR (05/16/2023 8:31 AM CDT) Only the most recent of3 resultswithin the time period is included. PT 14.0 12.1 - 14.8 sec 05/16/2023 8:51 AM CDT [facility] INR 1.1 0.9 - 1.1 05/16/2023 8:51 AM CDT [facility] Blood BLOOD SPECIMEN / Unknown Venipuncture / Unknown 05/16/2023 8:31 AM CDT 05/16/2023 8:38 AM CDT Narrative [facility] - 05/16/2023 8:51 AM CDT Conventional Warfarin Anticoagulant Therapy: INR Reference Range: 2.0-3.0 Intensive Warfarin Anticoagulant Therapy: INR Reference Range: 2.5-3.5 Chan Sarkar MD LAB - COAGULATION OR DERABLES Performing Organization Address City/[facility] Co de Phone Number [facility] [address] [address] * (ABNORMAL) CBC W AUTO DIFFERENTIAL (05/16/2023 8:31 AM CDT) Only the most recent of6 resultswithin the time period is included. WBC 6.0 4.4 - 10.7 x10E9/L 05/16/2023 8:42 AM CDT [facility] WBC Corrected 05/16/2023 8:42 AM CDT [facility] RBC 4.75 3.80 - 5.20 x10E12/L 05/16/2023 8:42 AM CDT [facility] Hemoglobin 12.4 12.0 - 15.6 gm/dL 05/16/2023 8:42 AM CDT [facility] Hematocrit 39.6 35.9 - 45.5 % 05/16/2023 8:42 AM CDT [facility] MCV 83.4 80.7 - 98.3 fl 05/16/2023 8:42 AM CDT [facility] MCH 26.1(L) 26.7 - 34.0 pg 05/16/2023 8:42 AM CDT [facility] MCHC 31.3 30.8 - 35.9 gm/dL 05/16/2023 8:42 AM CDT [facility] Platelet Count 187 153 - 416 x10E9/L 05/16/2023 8:42 AM CDT [facility] RDW-CV 14.4 12.1 - 14.9 % 05/16/2023 8:42 AM CDT [facility] MPV 11.8 9.4 - 12.9 fl 05/16/2023 8:42 AM CDT [facility] Neutrophils % 54.9 44.0 - 73.0 % 05/16/2023 8:42 AM CDT [facility] Lymphocytes % 35.3 20.0 - 43.0 % 05/16/2023 8:42 AM CDT [facility] Monocytes % 7.2 5.0 - 13.0 % 05/16/2023 8:42 AM CDT [facility] Eosinophils % 1.7 0.0 - 6.0 % 05/16/2023 8:42 AM CDT [facility] Basophils % 0.7 0.0 - 2.0 % 05/16/2023 8:42 AM CDT [facility] Immature Granulocytes 0.2 0 - 1 % 05/16/2023 8:42 AM CDT [facility] Neutrophil Absolute 3.27 2.01 - 7.14 x10E9/L 05/16/2023 8:42 AM CDT [facility] Lymphocytes Absolute 2.10 1.07 - 3.94 x10E9/L 05/16/2023 8:42 AM CDT [facility] Monocytes Absolute 0.43 0.26 - 1.07 x10E9/L 05/16/2023 8:42 AM CDT [facility] Eosinophils Absolute 0.10 0 - 0.47 x10E9/L 05/16/2023 8:42 AM CDT [facility] Basophils Absolute 0.04 0 - 0.08 x10E9/L 05/16/2023 8:42 AM CDT [facility] Immature Granulocytes Absolute 0.01 0.00 - 0.06 x10E9/L 05/16/2023 8:42 AM CDT [facility] nRBC Auto 0 /100 WBC 05/16/2023 8:42 AM [facility] Blood BLOOD SPECIMEN / Unknown Venipuncture / Unknown 05/16/2023 8:31 AM CDT 05/16/2023 8:38 AM CDT Chan Sarkar MD LAB - HEMATOLOGY ORD ERABLES [facility] [address] [place] [address] * (ABNORMAL) BASIC METABOLIC PANEL (CALCIUM TOTAL) (05/16/2023 8:31 AM CDT) Only the most recent of4 resultswithin the time period is included. Glucose 107(H) 70 - 105 mg/dL 05/16/2023 8:55 AM CDT [facility] Sodium 141 136 - 145 mmol/L 05/16/2023 8:55 AM [facility] Potassium 4.0 3.5 - 5.1 mmol/L 05/16/2023 8:55 AM CDT [facility] Chloride 102 98 - 107 mmol/L 05/16/2023 8:55 AM CDT [facility] CO2 29 22 - 29 mmol/L 05/16/2023 8:55 AM CDT [facility] Calcium 9.4 8.4 - 10.4 mg/dL 05/16/2023 8:55 AM CDT [facility] Anion Gap 10 6 - 16 mmol/L 05/16/2023 8:55 AM CDT [facility] BUN 20 7 - 26 mg/dL 05/16/2023 8:55 AM CDT [facility] Creatinine 1.37(H) 0.57 - 1.11 mg/dL 05/16/2023 8:55 AM T [facility] eGFR by CKD-EPI 42(L) >=90 mL/min/1.7 3 m2 05/16/2023 8:55 AM [facility] Blood BLOOD SPECIMEN / Unknown Venipuncture / Unknown 05/16/2023 8:31 AM CDT 05/16/2023 8:38 AM CDT Chan Sarkar MD LAB - CHEMISTRY [facility] Organization Address City/State/ZIP Co de Phone Number [facility] [address] [place] [address] * URINALYSIS AUTO - POINT OF CARE (AMB) STL (05/03/2023 10:14 AM CDT) Only the most recent of4 resultswithin the time period is included. Clarity UA POCT n/a [facility] Color UA POCT n/a [facility] Leukocyte UA 3+ Negative [facility] Nitrite UA POCT neg Negative [facility] Urobilinogen UA 0.2 0.1 - 1.[address] [facility] Protein UA POCT 1+ Negative [facility] pH UA 6.0 5.0 - 8.[address] [facility] Blood UA 3+ Negative [facility] Specific [place] UA POCT 1.020 1.002 - 1.[address] [facility] Ketone UA neg Negative [facility] Bilirubin UA POCT neg Negative [facility] Glucose UA neg Negative [facility] Expiration Date 5 [facility] Lot # [id number] [facility] QC Verified Yes Yes [facility] Urine URINE / Unknown 05/03/2023 1 0:14 AM CDT Janny Torres MD LAB - POINT OF CAR E ORDERABLES [facility] [address] [place] [address], [facility] [phone] * CT RENAL STONE PROTOCOL (04/26/2023 3:10 [...] DATE/TIME OF EXAM: 04/26/2023 3:12 PM, LOCATION [facility] INDICATION: N20.0: Calculus of kidney. HISTORY: Right [...] DATE/TIME OF EXAM: 04/26/2023 3:12 PM, LOCATION [facility] INDICATION: N20.0: Calculus of kidney. HISTORY: Right [...] bladder with DICOM image capture performed by medical office technologist. FINDINGS: Ultrasound examination of the right [...] and bladder with DICOMimage capture performed by medical office technologist. FINDINGS: Ultrasound examination of the right [...] CARDIAC RHYTHM STRIP ORDER (10/08/2022 11:36 PM RESTAURANT EXPEDITOR) Only the most recent of2 resultswithin the time period is included. Narrative 10/08/2022 11:36 PM RESTAURANT EXPEDITOR Ordered by an unspecified provider. Scanned Document CARDIAC SERVICES ORD ERABLES * FL LEONELA SURGERY (10/05/2022 3:58 PM RESTAURANT EXPEDITOR) Narrative [facility] - 10/05/2022 3:59 PM RESTAURANT EXPEDITOR For details of this study, please see the providers note. Janny Torres MD FLUOROSCOPY ORDERA BLES [facility] [address] [place] [address] * STONE ANALYSIS QUANT (10/05/2022 2:31 PM RESTAURANT EXPEDITOR) Stone Weight 1426 mg 10/13/2022 11:06 PM RESTAURANT EXPEDITOR [facility] ([facility]) Stone Source Comment 10/13/2022 11:06 PM RESTAURANT EXPEDITOR [facility] ([facility]) Comment:Not provided Stone color Reynaga 10/13/2022 11:06 PM [facility] ([facility]) Stone size 9x8 mm 10/13/2022 11:06 PM [facility] ([facility]) Comment: Multiple pieces received. Dimensions of the largest piece reported. Stone Composition Comment 023 11:06 PM RESTAURANT EXPEDITOR [facility] ([facility]) Comment:Percentage (Represen ts the % composition) Calcium Oxalate Monoh 75 % 10/13/2022 11:06 PM RESTAURANT EXPEDITOR [facility] ([facility]) Calcium Oxalate Dihyd 20 % 10/13/2022 11:06 PM RESTAURANT EXPEDITOR [facility] ([facility]) Hydroxyapatite 5 % 10/13/2022 11:06 PM RESTAURANT EXPEDITOR [facility] ([facility]) Comment Comment 10/13/2022 11:06 PM RESTAURANT EXPEDITOR [facility] ([facility]) Comment: Calcium phosphate (hydroxyl form) includes hydroxyapatite, amorphous calcium phosphate, and whitlockite. Hydroxyapatite is the most common of the calcium phosphate salts found in human kidney stones. Comment Comment 10/13/2022 11:06 PM RESTAURANT EXPEDITOR [facility] ([facility]) Comment: Calculus received wet. Wet calculi must be dried before analysis, which delays reporting of results. Leaving calculi wet (such as water, saline, blood, urine) may lead to changes in composition. Stone photo Comment 10/13/2022 11:06 PM [facility] ([facility]) Comment:Photograph will foll ow under a separate cover Comment: Comment 10/13/2022 11:06 PM [facility] Comment: Physician questions regarding Calculi Analysis contact [facility] at: [phone]. Please Note: Comment 10/13/2022 11:06 PM [facility] ([facility]) Comment: Calculi report will follow via computer, mail or sales assoc delivery. Disclaimer: Comment 10/13/2022 11:06 PM [facility] ([facility]) Comment: This test was developed and its performance characteristics determined by [facility]. It has not been cleared or approved by the Food and Drug Administration. Pathology/Cytolo gy KIDNEY STONE / Unknown 10/05/2022 2:31 PM RESTAURANT EXPEDITOR 10/09/2022 7:57 AM RESTAURANT EXPEDITOR Narrative [facility] ([facility]) - 10/13/2022 11:06 PM RESTAURANT EXPEDITOR Performed at: 01 - [facility] [address] [place] [address] Dr [address], [place], [place] [id number] Dietitian Helper: Colt Leong PhD, Phone: [phone] Janny Torres MD LAB - URINE CHEMIS TRY ORDERABLES [facility] ([facility]) [address] [place] [address] * IR PERC NEPHROSTOMY RIGHT (10/05/2022 12:50 PM RESTAURANT EXPEDITOR) Anatomical Region Laterality Modality Abdomen X-Ray Angiograph y 10/08/2022 1:12 PM RESTAURANT EXPEDITOR Impressions 10/08/2022 5:48 PM RESTAURANT EXPEDITOR IMPRESSION: SONOGRAPHICALLY AND FLUOROSCOPICALLY GUIDED PLACEMENT OF A 5 SAO TOMEAN KUMPE CATHETER OVER AN AMPLATZ STIFF WIRE, THROUGH THE RIGHT KIDNEY, PAST THE PELVIC CALCULUS, INTO THE URINARY BLADDER. > Interpreting Provider: Jeff Farrar MD on 10/08/2022 5:48 PM Narrative 10/08/2022 5:48 PM RESTAURANT EXPEDITOR PROCEDURE: IR PERC NEPHROSTOMY RIGHT, DATE/TIME OF EXAM: 10/05/2022 1:02 PM, LOCATION [facility] INDICATION: N20.0: Calculus of kidney ADDITIONAL CLINICAL [...] Bentson guidewire was passed through the 6 [place]oran coaxial access system and a hydrophilic guidewire was directed caudally, past the large filling defect/calculus, into the ureter. This was followed with the 65 cm 5 [place]an Kumpe catheter and directed into the urinary [...] minutes of fluoroscopy. FINDINGS: As above, the steam finisher images, under fluoroscopy, showed an ovoid calculus at the ureteropelvic junction. Images show mild pelvicalyceal dilatation. Final images, with the Kumpe catheter in the urinary bladder, confirming the access from a posterior calyx, through the collecting system, past the calculus, into the bladder.. Procedure Note Jeff Farrar MD - 10/08/2022 PROCEDURE: IR PERC NEPHROSTOMY RIGHT, DATE/TIME OF EXAM: :02 PM, LOCATION [facility] INDICATION: N20.0: Calculus of kidney ADDITIONAL CLINICAL [...] Bentson guidewire was passed through the 6 Comoran coaxial accesssystem and a hydrophilic guidewire was directed caudally, past the largefilling defect/calculus, into the ureter. This was followed with the 65 cm 5 [place]an Kumpe catheter and directedinto the urinary bladder. [...] minutes of fluoroscopy. FINDINGS: As above, the steam finisher images, under fluoroscopy, showed anovoid calculus at the ureteropelvic junction. Images show mild pelvicalyceal dilatation. Final images, with the Kumpe catheter in the urinarybladder, confirming the access from a posterior calyx, through the collecting system, past the calculus, into the bladder.. IMPRESSION: SONOGRAPHICALLY AND FLUOROSCOPICALLY GUIDED PLACEMENT OF A5 SAO TOMEAN KUMPE CATHETER OVER AN AMPLATZ STIFF WIRE, THROUGH THE RIGHTKIDNEY, PAST THE PELVIC CALCULUS, INTO THE URINARY BLADDER. > Interpreting Provider: Jeff Farrar MD on 10/08/2022 5:48 PM Janny Torres MD IR ORDERABLES * EKG 12-LEAD (10/05/2022 10:09 AM RESTAURANT EXPEDITOR) Ventricular Rate 85 BPM [facility] Atrial Rate 85 BPM [facility] P-R Interval 160 ms [facility] QRS Duration ms 82 ms [facility] Q-T Interval ms 378 ms [facility] QTC Calculation (Bezet) 449 ms [facility] Calculated P Victor 35 degrees [facility] Calculated R Victor 21 degrees [facility] Calculated T Victor 28 degrees [facility] Interpretation EKG Normal sinus rhythm Cannot rule out Anterior infarct seen also in 01/16/08 Abnormal ECG When compared with ECG of 16-JAN-2008 19:22, unconfirmed No significant change was found Confirmed by MD KASHIF, SOSA Ohara ([id number]) on 10/09/2022 8:05:57 AM [facility] 10/05/2022 10:0 9 AM RESTAURANT EXPEDITOR 10/09/2022 8:05 AM RESTAURANT EXPEDITOR Sukhjinder Quezada DO ECG ORDERABLES [facility] * TYPE + SCREEN PANEL (10/05/2022 9:36 AM RESTAURANT EXPEDITOR) ABO Rh A POS 10/05/2022 10:37 AM RESTAURANT EXPEDITOR [facility] Comment:No history; collect retype. Antibody Screen NEG 10:37 AM RESTAURANT EXPEDITOR [facility] Blood Bank BLOOD SPECIMEN / Unknown Venipuncture / Unknown 10/05/2022 9:36 AM RESTAURANT EXPEDITOR 10/05/2022 9:45 AM RESTAURANT EXPEDITOR Janny Torres MD LAB - BLOOD BANK O RDERABLES [facility] [phone] * CT ABDOMEN AND PELVIS NON IV CONTRAST (10/05/2022 9:28 AM RESTAURANT EXPEDITOR) Anatomical Region Laterality Modality Abdomen, Pelvis Computed Tomogra phy 10/05/2022 10:3 8 AM RESTAURANT EXPEDITOR Impressions 10/05/2022 1:39 PM RESTAURANT EXPEDITOR IMPRESSION: 1. Right renal pelvic calculus with moderate right-sided hydronephrosis. Right-sided ureteric stent in place. Additional right renal lower pole calculi. 2. Nonobstructive left renal lower pole calculi. Edited by Melinda Gordon on 10/05/2022 11:24 AM > Interpreting Provider: Julieta Rae MD on 10/05/2022 1:39 PM Narrative 10/05/2022 1:39 PM RESTAURANT EXPEDITOR PROCEDURE: CT ABDOMEN PELVIS WO CONTRAST, DATE/TIME OF EXAM: 10/05/2022 9:29 AM, LOCATION [facility] INDICATION: N20.0: Calculus of kidney ADDITIONAL CLINICAL [...] DATE/TIME OF EXAM: 10/05/2022 9:29 AM, LOCATION [facility] INDICATION: N20.0: Calculus of kidney ADDITIONAL CLINICAL [...] * BLOOD TYPE VERIFICATION (10/05/2022 9:25 AM RESTAURANT EXPEDITOR) ABO Rh A POS 10/05/2022 10:35 AM RESTAURANT EXPEDITOR [facility] Blood Bank BLOOD SPECIMEN / Unknown Lab Venipuncture / Unknown 10/05/2022 9:25 AM RESTAURANT EXPEDITOR 10/05/2022 9:47 AM RESTAURANT EXPEDITOR Janny Torres MD LAB - BLOOD BANK O RDERABLES [facility] [place] [address], [facility] [phone] * GROSS EXAM PATHOLOGY (STL) (10/05/2022 12:00 AM RESTAURANT EXPEDITOR) Case Report Surgical Pathology Report Case: [id number] Authorizing Provider: Janny Schmidt MD Collected: 10/05/2022 12:00 AM Ordering Location: [address] [facility] Received: 10/08/2022 10:52 AM Pathologist: Joelle Chin MD Specimen: Calculus Kidney 10/09/2022 8:47 AM RESTAURANT EXPEDITOR [facility] Final Diagnosis Calculus, kidney, removal: - Consistent with removed calculus (gross examination only). SD 10/09/2022 8:47 AM RESTAURANT EXPEDITOR [facility] Gross Description Received in saline labeled Schlund, stone analysis are multiple brown-reynaga, multifaceted calculi, 3 cm in greatest aggregate dimension. The specimen is submitted for gross examination only. JI/ns 10/09/2022 8:47 AM [facility] Embedded Images 10/09/2022 8:47 AM [facility] Pathology/Cytolog y KIDNEY STONE / Unknown 10/05/2022 10/08/2022 10:52 AM RESTAURANT EXPEDITOR Janny Torres MD LAB - PATHOLOGY/CY TOLOGY ORDERABLES [facility] [address] [place] [address] * LARYNGEAL [employer] (08/22/2022 10:11 AM RESTAURANT EXPEDITOR) Narrative Zee Yost APRN-CRNA - 08/22/2022 10:11 AM RESTAURANT EXPEDITOR Zee Yost APRN-CRNA 08/22/2022 10:12 AM LMA [...] * (ABNORMAL) CULTURE URINE (07/04/2022 8:33 AM RESTAURANT EXPEDITOR) Urine Culture Routine Final report(A) [facility] INSURANCE [...] CATCH PROCEDURE / Unknown 07/04/2022 8:33 AM RESTAURANT EXPEDITOR 07/04/2022 Narrative Resulting Agency Comment Lab Testing performed at: [facility] [address] [facility] [phone] Janny Torres MD LAB - MICROBIOLOGY ORDERABLES [facility] INSURANCE BILL [address] [place] [address] * LAB RESULTS ORDER (01/11/2014 4:39 PM CDT) Narrative 01/11/2014 4:39 PM CDT Ordered by an unspecified provider. Transcriptions Document, Scanned - 01/11/2014 4:39 PM CDT Scanned Document LAB - THERAPEUTIC DR UG MONITORING ORDERABLES * VANCOMYCIN LEVEL RANDOM (01/08/2014 10:59 AM CDT) Vancomycin Random 11.3 ug/mL 01/08/2014 11:27 AM CDT [facility] Blood BLOOD SPECIMEN / Unknown Lab Venipuncture / Unknown 01/08/2014 10:59 AM CDT 01/08/2014 11:04 AM CDT Narrative [facility] - 01/08/2014 11:27 AM CDT No reference range available for random Vancomycin levels. All results interpreted by ordering physician. Cheikh Urias DO LAB - CHEMISTRY ORDE RABBERNADETTE Performing Organization Address City/[facility]/ZIP Co de Phone Number [facility] [address] [address] * PT PTT PANEL (01/07/2014 2:40 PM CDT) Only the most recent of5 resultswithin the time period is included. PT 10.0 9.3 - 11.4 sec 01/07/2014 3:06 PM CDT [facility] INR 0.95 0.92 - 1.12 01/07/2014 3:06 PM CDT [facility] PTT 27.5 23.0 - 34.0 sec 01/07/2014 3:06 PM CDT [facility] Blood BLOOD SPECIMEN / Unknown Lab Venipuncture / Unknown 01/07/2014 2:40 PM CDT 01/07/2014 2:50 PM CDT Narrative [facility] - 01/07/2014 3:06 PM CDT Conventional Anticoagulant Therapy INR Reference Ranges: 2.0-3.0 Intensive Anticoagulant Therapy INR Reference Ranges: 2.5-3.5 Cheikh Urias DO LAB - COAGULATION OR DERABLES [facility] [address] [address] * FL VENOGRAM EXTREMITY UNILATERAL (01/07/2014 2:30 [...] PM CDT Narrative 01/07/2014 1:[address] PM [address]T [address] [address] Lower Extremity Venous Ultrasound Report Pat.Name: ALLY YANES Pat.ID: [id number] St.Date: 01/06/2014 Exam Time: 9:53:00 PM Study Type:LE Venous Age: 8 1955,58Y Sex: FEMALE Sonogrphr: Helga Cardenas RVT Room: ER 21 Reason for Study:Swelling -Leg, right, Pain -Leg, right, + D-Dimer, Calf pain - right, Cellulitis History / Clinical:Obesity, History of DVT Visit ID: [id number] SUMMARY: Negative for DVT at this time. [...] PM Ze Avila MD Procedure Note 01/07/[address] [address] Lower Extremity Venous Ultrasound Report Pat.Name: ALLY YANES Pat.ID: [id number] .Date: 01/06/2014 Exam Time: 9:53:00 PM Study Type:LE Venous Age: 8 1955,58Y Sex: FEMALE Sonogrphr: Helga Cardenas RVT Room: ER 21 Reason for Study:Swelling -Leg, right, Pain -Leg, right, + D-Dimer, Calf pain - right, Cellulitis History / Clinical:Obesity, History of DVT Visit ID: [id number] SUMMARY: Negative for DVT at this time. [...] Culture No Growth 01/13/2014 11:22 AM CDT [facility] Blood PERIPHERAL BLOOD / Unknown 01/06/2014 7:43 PM CDT 01/06/2014 7:53 PM CDT Garrett Graham MD LAB - MICROBIOLOGY O RDERABLES Performing Organization Address [facility] Co de Phone Number [facility] [address] [place] [address], [facility] * (ABNORMAL) D-DIMER (01/06/2014 6:54 PM CDT) [facility] D-Dimer 2.74(H) 0 - 0.5 mg/L FEU 01/06/2014 7:11 PM CDT [facility] Blood BLOOD SPECIMEN / Unknown Venipuncture / Unknown 01/06/2014 6:54 PM CDT 01/06/2014 6:58 PM CDT Narrative [facility] - 01/06/2014 7:11 PM CDT [...] - COAGULATION OR DERABLES Performing Organization Address [facility] Co de Phone Number [facility] [address] [place] [address] * CBC W MANUAL DIFFERENTIAL (01/06/2014 6:51 PM CDT) [facility] WBC 6.1 4.4 - 10.7 x10^9/L 01/06/2014 7:01 PM CDT [facility] RBC 4.56 3.80 - 5.20 x10^12/L 01/06/2014 7:01 PM CDT [facility] Hemoglobin 12.7 12.0 - 15.6 gm/dL 01/06/2014 7:01 PM CDT [facility] Hematocrit 37.8 35.9 - 45.5 % 01/06/2014 7:01 PM CDT [facility] MCV 82.9 80.7 - 98.3 fl 01/06/2014 7:01 PM CDT [facility] MCH 27.9 26.7 - 34.0 pg 01/06/2014 7:01 PM CDT [facility] MCHC 33.6 30.8 - 35.9 gm/dL 01/06/2014 7:01 PM CDT [facility] RDW-CV 13.7 12.1 - 14.9 % 01/06/2014 7:01 PM CDT [facility] MPV 11.0 9.4 - 12.9 fl 01/06/2014 7:01 PM CDT [facility] Platelet Count 297 153 - 416 x10^9/L 01/06/2014 7:01 PM T [facility] Blood BLOOD SPECIMEN / Unknown Venipuncture / Unknown 01/06/2014 6:51 PM CDT 01/06/2014 6:58 PM CDT Garrett Graham MD LAB - HEMATOLOGY ORD ERABLES [facility] [address] [facility] [place] [address] * (ABNORMAL) COMPREHENSIVE METABOLIC PANEL (01/06/2014 6:51 PM CDT) Only the most recent of2 resultswithin the time period is included. Glucose 109(H) 74 - 106 mg/dL 01/06/2014 7:15 PM CDT [facility] Sodium 139 136 - 145 mmol/L 01/06/2014 7:15 PM CDT [facility] Potassium 4.5 3.5 - 5.1 mmol/L 01/06/2014 7:15 PM CDT [facility] Chloride 102 98 - 107 mmol/L 01/06/2014 7:15 PM CDT [facility] CO2 29 22 - 31 mmol/L 01/06/2014 7:15 PM CDT [facility] Calcium 9.0 8.5 - 10.1 mg/dL 01/06/2014 7:15 PM CDT [facility] Anion Gap 8 5 - 15 mmol/L 01/06/2014 7:15 PM CDT [facility] BUN 12 7 - 21 mg/dL 01/06/2014 7:15 PM T [facility] Creatinine 0.54 0.50 - 1.30 mg/dL 01/06/2014 7:15 PM T [facility] eGFR by MDRD >60 >60 mL/min/1.7 3m2 01/06/2014 7:15 PM T [facility] eGFR by MDRD >60 >60 mL/min/1.7 3m2 01/06/2014 7:15 PM T [facility] Alkaline Phosphatase 138(H) 38 - 126 U/L 01/06/2014 7:15 PM T [facility] ALT 74 12 - 78 U/L 01/06/2014 7:15 PM [facility] AST 66(H) 5 - 40 U/L 01/06/2014 7:15 PM [facility] Protein Total 9.0(H) 6.4 - 8.2 gm/dL 01/06/2014 7:15 PM [facility] Albumin 3.0(L) 3.4 - 5.0 gm/dL 01/06/2014 7:15 PM [facility] Bilirubin Total 0.5 0.2 - 1.0 mg/dL 01/06/2014 7:15 PM [facility] Blood BLOOD SPECIMEN / Unknown Venipuncture / Unknown 01/06/2014 6:51 PM CDT 01/06/2014 6:58 PM CDT Narrative [facility] - 01/06/2014 7:15 PM CDT Slight hemolysis. Garrett Graham MD LAB - CHEMISTRY SHRADDHA JOYA [facility] Organization Address City/State/ZIP Co de Phone Number [facility] [address] [place] [address] * DIFFERENTIAL MANUAL (01/06/2014 6:51 PM CDT) WBC Auto 6.1 x10^9/L 01/06/2014 7:34 PM CDT [facility] Neutrophil % Manual 57 44 - 73 % 01/06/2014 7:34 PM CDT [facility] Lymphocytes % Manual 31 20 - 43 % 01/06/2014 7:34 PM CDT [facility] Monocytes % Manual 8 5 - 13 % 01/06/2014 7:34 PM CDT [facility] Eosinophils % Manual 2 0 - 6 % 01/06/2014 7:34 PM CDT [facility] Band % Manual 2 0 - 11 % 01/06/2014 7:34 PM CDT [facility] Cells Counted 100 # cells 01/06/2014 7:34 PM T [facility] RBC Morphology Normal 01/06/2014 7:34 PM T [facility] WBC Morph Normal 01/06/2014 7:34 PM CDT [facility] Blood BLOOD SPECIMEN / Unknown 01/06/2014 6:51 PM CDT 01/06/2014 6:58 PM CDT Garrett Graham MD LAB - HEMATOLOGY ORD ERABLES [facility] [address] [address] * CARDIAC PROCEDURE ORDER (06/21/2009 5:37 PM RESTAURANT EXPEDITOR) Narrative 06/21/2009 5:37 PM RESTAURANT EXPEDITOR Ordered by an unspecified provider. Transcriptions Document, Scanned - 06/20/2009 12:00 AM RESTAURANT EXPEDITOR Scanned Document CARDIAC SERVICES ORD ERABLES * IR FLUORO GUIDE FOR SPINAL INJECTION (06/20/2009 2:40 PM RESTAURANT EXPEDITOR) Anatomical Region Laterality Modality Radiographic Eda ging 06/20/2009 4:43 PM RESTAURANT EXPEDITOR Impressions 06/20/2009 5:22 PM RESTAURANT EXPEDITOR Successful fluoroscopic guided cervical epidural steroid injection as described above. Narrative 06/20/2009 5:22 PM RESTAURANT EXPEDITOR Fluoroscopic guided cervical epidural steroid injection Clinical [...] fracture or dislocation identified. See above. Felicity Goemz DO DIAGNOSTIC IMAGING O RDERABLES * XR [...] GROSS + MICRO EXAM (09/24/2008 1:15 PM RESTAURANT EXPEDITOR) Only the most recent of3 resultswithin the [...] segments of blood vessels with blood clots. Rda sections are submitted in cassettes A1 and [...] microscopic description). Dictated by Dr. Kavon Hammond Art Therapist ALLY GROSS Electronically Signed By DOREEN HAMMOND MISCELLANEOUS SAMPLES / Unknown 09/24/2008 1:15 PM RESTAURANT EXPEDITOR 09/24/2008 2:19 PM RESTAURANT EXPEDITOR Historical Provider LAB - PATHOLOGY/C YTOLOGY ORDERABLES * CULTURE WOUND (09/24/2008 1:15 PM RESTAURANT EXPEDITOR) Result [facility] Comment: Final ACCN COMMENT Hematoma - left leg - septic thromb* GRAM STAIN Heavy rbc's Rare WBC's No organisms seen CULTURE No growth. HEMATOMA / Unknown 9 1:15 PM RESTAURANT EXPEDITOR 09/24/2008 2:27 PM RESTAURANT EXPEDITOR Narrative Resulting Agency Comment Performed By [facility] [address] [place] [address] Connor Leon MD LAB - MICROBIOLOGY O KENNY Performing Organization Address [facility] Co de Phone Number [facility] * CULTURE FLUID (03/29/2008 11:00 AM CDT) Result [facility] Comment: Final GRAM STAIN Moderate WBC's No organisms seen CULTURE swab sent No growth. 03/29/2008 11:0 0 AM CDT 03/29/2008 12:10 PM CDT Narrative Resulting Agency Comment Performed By [facility] [address] [place] [address] Connor Leon MD LAB - MICROBIOLOGY O KENNY Performing Organization Address [facility] de Phone Number [facility] * US GUIDE NEEDLE PLACEMENT [...] the skin and subcutaneous tissue. 19-gauge 5 [place] catheter was then placed under ultrasound into [...] the skin and subcutaneous tissue. 19-gauge 5 [place] catheter was then placed under ultrasound into [...] SCP- Connor Leon MD ORDERABLES Care Teams Head Greenskeeper Relationship Specialty Start Date End Date Noé Lew MD [address] [place] [address] PCP - General Internal Medicine 07/04/24 Janny Torres MD [address] [place] [address] [id number] [phone] Physician Urology 05/07/24
--- OUTSIDE RECORDS SUMMARY | 2024-10-06 09:29 | XMS_ITS | Encounter Summary ---
Author Organization [employer] [facility] Address 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
--- OUTSIDE RECORDS SUMMARY | 2024-10-06 09:29 | XMS_ITS | Data Portability ---
Author Organization [facility] [employer], Main Office Address [address] [place] [address] Assessment No assessment recorded. Plan of Treatment Reminders Order Date Submit Date Provider Last Modified By Organization Details Last Modified Time Details Appointments None recorded. Lab noninvasive colorectal cancer DNA + occult blood screening, QL, stool 2022 023 [email or web address] [facility] (Cologuard Orders Only), [address], [address], [place], [address], 3 09:59:27 Referral pain management referral 2022 023 [email or web address] 3 Anais Louis [facility], [address] [facility], [place], [address], 3 09:43:42 Procedures None recorded. Surgeries None recorded. Imaging MAMMO, screening, digital, bilateral 2022 023 [email or web address] [facility], [address], [address], [place], [address], 3 09:20:23 DEXA 2022 023 [email or web address] [facility], [address], [address], [place], [address], 3 09:21:53 Medication Orders tramadol 50 mg tablet 2022 023 [facility], [facility], [place], [address], 3 15:49:09 tizanidine 4 mg tablet 2022 023 [facility], [place], [address], 3 15:49:06 Flonase Allergy Relief 50 mcg/actuati on nasal spray,suspe nsion 2022 023 [email or web address] 1 [facility], [place], [address], 3 11:21:47 loratadine 10 mg tablet 2022 023 [facility], [place], [address], 15:49:04 Patient TargetsNo targets recorded. Patient Instructions Encounter Date Encounter Id Patient Instructions Last Modified By Organization Details Last Modified Time 12/31/2022 [id number] dementia rating scale-2* [email or web address] Not available 12/31/2022 15:49:00 care plan* Not available 12/11 15:49:01 multi-dimensiona health assessment questionnaire* [email or web address] Not available 12/31/2022 15:49:00 advance directiv es: care instructions [email or web address] Not available 12/31/2022 15:49:00 [place] Advance Directives [email or web address] Not available 12/31/2022 15:49:00 advance care planning: care instructions Not available 12/31/2022 15:49:01 Personalized a lt Plan and Screening Recommendations Advance Directives - Do you have one? No You have indicated that you are capable of preparing your advance care directive Advance Directives - Do we have your advance directive on file in your health record? No, please bring in a copy at your earliest convenience Primary Prevention/Interven tion (prevents or decreases the chance of common diseases from occurring) Smoking Risk: Non Smoker Alcohol Misuse Screening: Negative Weight: Appropriate Overwei ght continue your current weight loss efforts try to lose 5% of your body weight try to lose 10% of your body weight try to lose 15% of your body weight Physical activity: Need more exercise/physical activity Nutrition: Poor Fall Risk (screened today): Low Vaccines Pneumococcal: Ordered Recommended today Influenza: Your next one in the fall of this year Chronic Disease Risks Stroke: Low Risk I have no recommendations Act ankush diagnosis, Continue current treatment plan Heart Attack: Low risk I have no recommendations Act ankush diagnosis, Continue current treatment plan Clogging of the Arteries: Low risk I have no recommendations Act ankush diagnosis, Continue current treatment plan Diabetes: Low Risk Active diagnosis, Continue current treatment plan Secondary Prevention/Interven tion (detects treatable diseases before they may cause symptoms, disability, or ) Prostate Cancer Screening: No PSA screening necessary Colon Cancer Screening: Colonoscopy Fecal Occult Blood Cologuard (DNA stool test) Date Screening Last Performed: Eye Disease Screening: Ordered Recommended today Dementia Risk: Low Depression Screening: Negative Positive Active diagnosis, Continue current treatment plan [email or web address] Not available 12/31/2022 15:53:25 Reason for Referral Pain Management Referral for Degeneration of lumbar intervertebral disc Referring Physician: Robbi Lazaro, Family Medicine, Encounter Date: 05/21/2023 Results Created Date Observation Date Name Description Value Unit Range Abnormal Flag Note LastModifiedBy Organization Detail LastModifiedTime 12/31/19 24 12/31/2023 COLOG UARD cologuard result Cancel led - Order d not applic able Not Available [facility] (Cologuard Orders Only) [address], [place], [address], 12/31/2023 16:17:27 06/01/20 22 06/01/2022 urina lysis , dipst ick Leukocytes (reference range: negative kris/ l) Modera te Not Available [facility] [address], [address], [place], [address], 06/01/2022 16:51:15 06/01/20 22 06/01/2022 urina lysis , dipst ick Nitrite (reference rage: negative mg/dl) positi ve Not Available [address], [address], 06/01/2022 16:51:15 06/01/20 22 06/01/2022 urina lysis , dipst ick Urobilinogen (reference range: 0.2-1 mg/dl) 1 Not Available [address], [address], 06/01/2022 16:51:15 06/01/20 22 06/01/2022 urina lysis , dipst ick Protein (reference range: negative mg/dl) 100 Not Available [address], [address], 06/01/2022 16:51:15 06/01/20 22 06/01/2022 urina lysis , dipst ick pH (reference range: 5-7) 6.0 Not Available Z_[address], [address], 06/01/2022 16:51:15 06/01/20 22 06/01/2022 urina lysis , dipst ick Blood (reference range: negative Tim/ l) Modera te Not Available [address], [address], 06/01/2022 16:51:15 06/01/20 22 06/01/2022 urina lysis , dipst ick Specific [place] (reference range: 1.005-1.030) 1.020 Not Available Z_[address], [address], 06/01/2022 16:51:15 06/01/20 22 06/01/2022 urina lysis , dipst ick Ketone (reference range: negative mg/dl) Negati ve Not Available [address], [address], 06/01/2022 16:51:15 06/01/20 22 06/01/2022 urina lysis , dipst ick Bilirubin (reference range: negative mg/dl) Negati ve Not Available [address], [address], 06/01/2022 16:51:15 06/01/20 22 06/01/2022 urina lysis , dipst ick Glucose (reference range: negative mg/dl) Negati ve Not Available [address], [address], 06/01/2022 16:51:15 06/01/20 22 06/01/2022 urina lysis , dipst ick Appearance Clear Not Available [address], [address], 06/01/2022 16:51:15 06/01/20 22 06/01/2022 urina lysis , dipst ick Color Yellow Not Available [address], [address], 06/01/2022 16:51:15 06/04/20 22 05/12/2022 CT, abdom en + pelvi s, w/o contr ast No observ ation record ed. [id number] Not Available 10/11/2022 01:28:22 09/16/19 25 09/16/2024 imagi ng/di agnos tic resul t No observ ation record ed. [facility] [address] [place], [address], 09/16/2024 17:14:26 Result Notes None recorded. Problems Name Problem SNOMED Code Status Onset Date Resolution Date Notes Provider Name and Address Organization Details Recorded Time Cobalamin deficiency 435599357 Active 2021 Not Available [facility] 3 01:25:45 Mixed anxiety and depressive disorder 432009670 Active 2021 Not Available [facility] 3 01:25:46 Polycystic ovary syndrome 446872069 Active 2021 Not Available [facility] 3 01:25:46 Thyroid nodule 743806510 Active 2021 Not Available [facility] 3 01:25:46 Gastroesop hageal reflux disease without esophagiti s 324047032 Active 2021 Not Available [facility] 3 01:25:46 Vitamin D deficiency 06582203 Active 2021 Not Available [facility] 3 01:25:46 Urine EDDP level Active 2021 Not Available [facility] 3 01:25:46 Essential hypertensi on 27571202 Active 2021 Not Available [facility] 3 01:25:46 Polydactyl y of biphalange al thumb 456522414 Active 2021 Not Available [facility] 3 01:25:46 Kidney stone 18352264 Active 2021 Not Available [facility] 3 01:25:47 Degenerati on of lumbar interverte bral disc 89811569 Active 2022 TRE [address], [facility] [address], [place], [address] , [place] [facility] [employer] [facility] 3 15:09:02 Bilateral osteoarthr itis of knees 7480333235331 07 Active 2022 TRE Luz [address], [address], [place], [address] , [facility] 3 15:09:55 Seasonal allergy 676301463 Active 2022 TRE Luz [address], [address], [place], [address] , [facility] 15:18:18 Decreased renal function 86801123 Active 2022 Robbi Josephd, STONECUTTER APPRENTICE HAND-C [address], [address], [place], [address] , [facility] 3 10:07:40 Spasm 41430300 Active 2022 Robbi Lazaro, STONECUTTER APPRENTICE HAND-C [address], [address], [place], [address] , [facility] 10:09:00 Problem Notes None recorded. Procedures Surgical History Date Name Laterality Status Provider Name and Address Organization Details Recorded Time 01/01/20 23 Medicare Wellness CPT Code, Initial completed TRE Luz [address], [address], [place], [address], [facility] 12/31/2022 14:21:06 Cholecystectomy completed Not Available [facility] 10/11/2022 01:24:03 repair of umbilical hernia completed Not Available [facility] 10/11/2022 01:24:03 Imaging Results Imaging Date Name Status LastModified by Organiz ation Details LastModified Time 05/12/2022 CT, abdomen + pelvis, w/o contrast completed [id number] Information not available 10/11/2022 01:28:22 09/16/2024 imaging/diagn ostic result active [facility] [address] [place], [address], 09/16/2024 17:14:26 Procedure Notes None recorded. Medical Equipment None Reported. Allergies Allergen ID Allergen Name Allergen Category Reaction Reaction Severity Criticality Documentation Date Start Date Code Code System Note Provider Name and Address Organization Details Recorded Time 76662 robenacox ib Not available Not available Not available Not available 10/11/2022 04221 03 RxNorm Not Available [facility] 3 01:28:09 60541 naproxen medicatio n Not available Not available Not available 10/11/2022 7258 RxNorm Not Available [facility] 3 01:28:09 44201 lavender extract food Not available Not available Not available 10/11/2022 00642 67 RxNorm Not Available [facility] 3 01:28:09 64598 latex environme nt,medica tion Not available Not available Not available 10/11/2022 21054 91 RxNorm Not Available [facility] 3 01:28:09 99164 Iodinated contrast media (substanc e) medicatio n Not available Not available Not available 10/11/2022 39809 2004 SNOMED Not Available [facility] 3 01:28:09 07952 Demerol medicatio n Not available Not available Not available 10/11/2022 74608 1 RxNorm Not Available [facility] 3 01:28:09 66058 codeine medicatio n Not available Not available Not available 10/11/2022 2670 RxNorm Not Available [facility] 3 01:28:09 Medications Name Sig Start Date [...] Relief 50 mcg/actuati on nasal spray,suspe nsion [place] 1 spray every day by intranasa l [...] [degF] 148 mm[Hg] 96 mm[Hg] Not Available [facility] 3 01:24:53 Date Recorded Oxygen saturation Oxygen saturation in Arterial blood by Pulse oximetry Heart rate Body temperature Body weight Systolic blood pressure Diastolic blood pressure Provider Name and Address Organization Details Last Updated DateTime 2 98 % 98 % 76 /min 96.3 [degF] 472536. 71 g 140 mm[Hg] 70 mm[Hg] Not Available [facility] 3 01:24:53 Date Recorded Oxygen saturation Oxygen saturation in Arterial blood by Pulse oximetry Heart rate Body temperature Body weight Systolic blood pressure Diastolic blood pressure Provider Name and Address Organization Details Last Updated DateTime 2 98 % 98 % 115 /min 98.1 [degF] 182808. 53 g 146 mm[Hg] 82 mm[Hg] Not Available [facility] 3 01:24:53 Date Recorded Body height Body mass index (BMI) Body weight Body temperature Heart rate Oxygen saturation Oxygen saturation in Arterial blood by Pulse oximetry Systolic blood pressure Diastolic blood pressure Provider Name and Address Organization Details Last Updated DateTime 3 167.64 cm 49.7 kg/m2 139710. 45 g 97.6 [degF] 83 /min 97 % 97 % 136 mm[Hg] 84 mm[Hg] Le calhoun CMA [place] [facility] [place] [facility] 3 14:45:25 Date Recorded Body height Body mass index (BMI) Body weight Body temperature Heart rate Oxygen saturation Oxygen saturation in Arterial blood by Pulse oximetry Systolic blood pressure Diastolic blood pressure Provider Name and Address Organization Details Last Updated DateTime 3 167.64 cm 49.4 kg/m2 138665. 27 g 96.4 [degF] 100 /min 94 % 94 % 170 mm[Hg] 100 mm[Hg] Wilda Addison RN [place] [facility] [place] [employer] [facility] 3 09:46:27 Social History Question Answer Notes LastModified by [employer] Details LastModified Time Tobacco Smoking Status Never Smoker Not Available [facility] 10/11/2022 01:23:42 What Is Your Level Of Alcohol Consumption? None [id number] Information not available 10/11/2022 What Is Your Level Of Caffeine Consumption? None [id number] Information not available 10/11/2022 In The 14 Days Before Symptom Onset, Have You Had Close Contact With A Laboratory-confirm ed COVID-19 While That Case Was Ill? No [id number] Information not available 10/11/2022 In The 14 Days Before Symptom Onset, Have You Had Close Contact With A Person Who Is Under Investigation For COVID-19 While That Person Was Ill? No [id number] Information not available 10/11/2022 What Type Of Diet Are You Following? REGULAR [id number] Information not available 10/11/2022 Do You Use Any Illicit Or Recreational Drugs? No [id number] Information not available 10/11/2022 Has Tobacco Cessation Counseling Been Provided? No [id number] Information not available 10/11/2022 Do You Have Any Dietary Restrictions? No [id number] Information not available 10/11/2022 Do You Or Have You Ever Used Any Other Forms Of Tobacco Or Nicotine? No [id number] Information not available 10/11/2022 Sex: Unknown Functional Status Question Answer Note LastModified by Organizat ion Details LastModified Time What is your exercise level? None [id number] Information not available 10/11/2022 Mental Status None [...] SNOMED-CT Code Diagnosis ICD10 Code Diagnosis Note [id number] [facility] Primary Care Martha yang [address] [facility] [address] [place] [address] 04/06/2022 00:00:00 04/06/2022 13:30:35 [id number] [facility] Primary Care Martha yang [address] [facility] [address] [place] [address] 05/21/2022 00:00:00 05/21/2022 12:44:09 [id number] [facility] [place] [address] [place] [address], [address] [place] [address] 06/01/2022 00:00:00 06/01/2022 17:42:27 [id number] TRE Luz [facility] Primary Care Martha yang [address] [facility] [address] [place] [address] 12/31/2022 14:34:56 12/31/2022 15:30:54 Adult health examination 605230978 Z00.00 Labs completed 04/06/22. Recommende d routine eye exams and dental cleanings. Shingles vaccine- recommende d; declinesPn eumonia vaccine- recommende d declines; declinesFl u vaccine- recommende d; declinesTe tanus vaccine- up to date per patient, approx. 5 years ago Colonoscop y- declines; cologuard a few years agoMammogr am- ordered todayDEXA- ordered today Screening for disorder 110870460 Z13.9 Screening for malignant neoplasm of colon 689205574 Z12.11 Screening mammography 24 319015 Z12.31 Screening for osteoporosis 587846233 Z13.820 Degenerati on of lumbar intervertebral disc 31200745 M51.36 She did not follow-up with Dr. [...] trial of tizanidine . She is wanting prison pain control. Advised we can try tramadol but if this is not enough her only option will be to go back to pain management for long term care social worker pain management . She expresses understand ing. Bilateral osteoarthritis of knees 5284793798 19298 M17.0 Recommende d she follow-up with orthopedic s, but she declines at this time. She is not interested in injections or any replacemen ts at this time. Seasonal allergy 9875857 04 J30.2 [id number] Robbi Lazaro, STONECUTTER APPRENTICE HAND-C [facility] [address] [facility] [address] [place] [address] 05/21/2023 09:39:50 05/21/2023 11:28:37 Decreased renal function 86683226 R94.4 currently has drain to right kidney-con tinues to drain more than 5cc/day, yellow/ser ous fluidUrolo gy Dr. Janny Schmidt continues to followPlan s to have interventi onal radiology f/u in the near future-cur rently not scheduled Degenerati on of lumbar intervertebral disc 90537372 M51.36 Her back is her biggest issuepain [...] (MEDICARE - MEDICAID REPLACEMENT HMO) Ally Ayala [id number] Ally Ayala 05/21/2023 1 [employer] BETTER [employer] - PREMIER PLAN - DUAL (MEDICARE - MEDICAID REPLACEMENT HMO) Ally Ayala [id number] Ally Ayala Notes Date Note Type Note Provider Name and Address Organization Details Recorded Time 12/31/2022 text/html Pt. here for medicare wellness.She is followed by urology (Dr. Schmidt). She stopped the topiramate because her urologist wanted her to stop it because it can cause worsening kidney stone. TRE Luz [address] [place] [address], [facility] [address], [place], [address], [facility] 12/31/2022 15:53:50 05/21/2023 text/html Pt is here for f/u and referral to pain management Robbi Lazaro, STONECUTTER APPRENTICE HAND-C [address], [place] [address], [place], [address], [facility] 05/21/2023 10:33:34 OBGyn Episode No OBEpisode recorded.
--- OUTSIDE RECORDS SUMMARY | 2024-10-06 09:29 | XMS_ITS | Encounter Summary ---
Author Organization [facility] Address 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
--- OUTSIDE RECORDS SUMMARY | 2024-10-06 09:29 | XMS_ITS | Encounter Summary ---
Author Organization [facility] Address [address] [place] [address] Care Team Providers Care Hydraulic Lift Operator Name Role Phone Martha Arriaga MD Primary Care Provid er Encounter Details Date Type Department Care Team (Latest Contact Info) Description 06/27/[address] 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
--- OUTSIDE RECORDS SUMMARY | 2024-10-06 09:29 | XMS_ITS | Encounter Summary ---
Author Organization [employer] [facility] Address 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
--- OUTSIDE RECORDS SUMMARY | 2024-10-06 09:29 | XMS_ITS | Encounter Summary ---
Author Organization [facility] Address [address] [place] [address] Care Team Providers Care Bladder Tier Name Role Phone Martha Arriaga MD Primary Care Provid er Encounter Details Date Type Department Care Team (Late st Contact Info) Description 11/03/2003 Outpatient Historical [facility] - [place] [address] [place] [address] [place]ña [place] [address] [place] [address] Social History Tobacco Use Types Packs/Day Years Used Date Smoking Tobacco: Never Assessed Comments Unknown Sex and Gender Information Value Date Recorded Sex Assigned at Not on file 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 Gender Identity Not on file Sexual Orientation Not on file documented as of this encounter Last Filed Vital Signs Vital Sign Reading Time Taken Comments Blood Pressure 120/78 11/03/2003 9:15 AM CREAM HAULER Pulse 66 11/03/2003 9:15 AM CREAM HAULER Temperature - - Respiratory Rate - - Oxygen Saturation - - Inhaled Oxygen Concentration - - Weight 114.8 kg (253 lb) 11/03/2003 9:15 AM CREAM HAULER Height - - Body Mass Index - - documented in this encounter Plan of Treatment Not on file documented as of this encounter Visit Diagnoses Not on filedocumented in this encounter Care Teams Bladder Tier Relationship Specialty Start Date End Date Martha Arriaga MD PCP - General Internal Medicine 05/10/20 documented as of this encounter
--- OUTSIDE RECORDS SUMMARY | 2024-10-06 09:29 | XMS_ITS | Encounter Summary ---
Author Organization [facility] Address [address] [place] [address] Care Team Providers Care Awning Assembler Name Role Phone Martha Arriaga MD Primary Care Provid er Encounter Details Date Type Department Care Team (Late st Contact Info) Description 06/17/2004 Outpatient Historical [facility] Trauma and General Surgery [address] 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
--- OUTSIDE RECORDS SUMMARY | 2024-10-06 09:29 | XMS_ITS | Encounter Summary ---
Author Organization [facility] Address [address] [place] [address] Care Team Providers Care Data Warehousing Engineer Name Role Phone Martha Arriaga MD Primary Care Provid er Encounter Details Date Type Department Care Team (Latest Contact Info) Description 07/25/2004 Outpatient Historical [facility] [address] [place] [address] Luis Carlos Saldaña OPEN WOUND KNEE/LEG-COMPL (Primary Dx) Social History Tobacco Use Types Packs/Day Years Used Date Smoking Tobacco: Never Assessed Comments Unknown Sex and Gender Information Value Date Recorded Sex Assigned at Not on file 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
--- OUTSIDE RECORDS SUMMARY | 2024-10-06 09:29 | XMS_ITS | Encounter Summary ---
Author Organization [facility] Address [address] [place] [address] Care Team Providers Care Patrol Supervisor Name Role Phone Martha Arriaga MD Primary Care Provid er Encounter Details Date Type Department Care Team ([facility] st Contact Info) Description 06/07/2004 Outpatient Historical [facility] Internal Medicine - [place] [address] [place] [address] [place] Sal[place]ña [place] [address] [place] [phone] Social History Tobacco Use Types Packs/Day Years Used Date Smoking Tobacco: Never Assessed Comments Unknown Sex and Gender Information Value Date Recorded Sex Assigned at Not on file Legal Sex Female 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
--- OUTSIDE RECORDS SUMMARY | 2024-10-06 09:29 | XMS_ITS | Encounter Summary ---
Author Organization [facility] Address [address] [place] [address] Care Team Providers Care Grass Farm Laborer Name Role Phone Martha Arriaga MD Primary [...] on file Legal Sex Female 3:23 AM GEODUCK DIVER Gender Identity Not on file Sexual Orientation Not on file documented as of this encounter Plan of Treatment Not on file documented as of this encounter Visit Diagnoses Diagnosis Contusion of knee- Primary documented in this encounter Care Teams Grass Farm Laborer Relationship Specialty Start Date End Date Martha Arriaga MD PCP - General Internal Medicine 05/10/20 documented as of this encounter
--- OUTSIDE RECORDS SUMMARY | 2024-10-06 09:29 | XMS_ITS | Clinical Summary ---
Author Organization [facility] Mr. Number Address [address] [place] [address] Care Team Providers Care Car Rental Service Attendant Name Role Phone Janny Torres MD Unavailable [phone] Noé Lew MD Primary Care Provider [phone] Source Comments [facility],non-owned Affiliates and Associated Physician Practices is amultiple site organization consisting of ambulatory clinics and hospital sitesin [place], [place], [place] and [place]. This disclosure is being madepursuant to the Care Everywhere program and may not contain all information available regarding this patient. Last updated 18.[facility] Mr. Number Allergies Active Allergy Reactions Criticality Noted Date [...] Status vitamin D, ergocalciferol, (Drisdol) 1.25 MG (43176 UT) capsule 1 (one) capsule every 7 [...] Department Care Team Description 09/07/2024 10:00 AM OFFICE SUPPORT ASSOCIATE Office Visit [facility] - Rheumatology [address], [place] [address] Gaby Lion MD Ribonucleoprotein antibody positive (Primary Dx) 09/07/2024 Travel 08/26/2024 Travel from Last 3 Months Family History [...] Sex Assigned at Female 07/19/2022 2:59 PM OFFICE SUPPORT ASSOCIATE Gender Identity Female 07/19/2022 2:59 PM OFFICE SUPPORT ASSOCIATE Sexual Orientation Straight 07/19/2022 2: 59 PM OFFICE SUPPORT ASSOCIATE Travel History Travel Start Travel End [place] 09/07/2024 09/07/2024 Last Filed Vital Signs Vital Sign Reading Time Taken Comments Blood Pressure 151/94 09/07/2024 9:55 AM OFFICE SUPPORT ASSOCIATE Pulse 90 09/07/2024 9:55 AM OFFICE SUPPORT ASSOCIATE Temperature 36.6 C (97.9 F) 09/07/2024 9:55 AM OFFICE SUPPORT ASSOCIATE Respiratory Rate 14 05/16/2023 11:17 AM CDT Oxygen Saturation 92% 09/07/2024 9:55 AM OFFICE SUPPORT ASSOCIATE Inhaled Oxygen Concentration - - Weight 150.1 kg (331 lb) 09/07/2024 9:55 AM OFFICE SUPPORT ASSOCIATE Height 165.1 cm (5' 5 ) 09/07/2024 9:55 AM OFFICE SUPPORT ASSOCIATE Body Mass Index 55.08 09/07/2024 9:55 AM OFFICE SUPPORT ASSOCIATE Plan of Treatment Upcoming Encounters Date Type Department Care Team (Late st Contact Info) Description 05/06/2025 10:00 AM CDT Office Visit [facility] Medical [facility] - Urology [address], [address] [place] [address] Janny Torres MD [address] [place] [address] Health Maintenance Due Date Last Done Comments BONE DENSITY TESTING 1954 COLON MONITORING 1954 COLONOSCOPY - COLON CA SCREENING 1954 CT COLONOGRAPHY - COLON CA SCREENING 1954 FIT - COLON CA SCREENING 1954 [...] 05/16/2026 3, 05/03/2023, 10/05/2022, Additional history exists COLOGUARD (AGES 45-75) - COLON CA SCREENING 07/16/2027 07/16/2024, 03/09/2021 Colorectal Cancer Screening 07/16/2027 DEPRESSION SCREENING Completed 09/07/2024 HEPATITIS B VACCINE [...] this topic Medical Devices Implanted Type Area Relief Docking Master Device Identifier Shelf Expiration Date Model / Serial / Lot Stent Uret 6fr 22-30cm Pgtl Crv Tpr Tip Implanted:Qty: 1 on 10/05/2022 by Janny Torres MD at [facility] Right: Ureter Honey Scimed 06/24/2025 [id number] / / [id number] Procedures Procedure Name Priority Date/Time Associated Diagnosis Comments BASIC METABOLIC PANEL (CALCIUM TOTAL) TEQUILA 05/16/2023 8:31 AM CDT Right renal stone from Last 3 Months or Most Recently Relevant to Health Maintenance Results * (ABNORMAL) BASIC METABOLIC PANEL (CALCIUM TOTAL) (05/16/2023 8:31 AM CDT) Glucose 107(H) 70 - 105 mg/dL 05/16/2023 8:55 AM CDT [facility] Sodium 141 136 - 145 mmol/L 05/16/2023 8:55 AM CDT [facility] Potassium 4.0 3.5 - 5.1 mmol/L 05/16/2023 8:55 AM CDT [facility] Chloride 102 98 - 107 mmol/L 05/16/2023 8:55 AM CDT [facility] CO2 29 22 - 29 mmol/L 05/16/2023 8:55 AM CDT [facility] Calcium 9.4 8.4 - 10.4 mg/dL 05/16/2023 8:55 AM CDT [facility] Anion Gap 10 6 - 16 mmol/L 05/16/2023 8:55 AM CDT [facility] BUN 20 7 - 26 mg/dL 05/16/2023 8:55 AM CDT [facility] Creatinine 1.37(H) 0.57 - 1.11 mg/dL 05/16/2023 8:55 AM CDT [facility] eGFR by CKD-EPI 42(L) >=90 mL/min/1.7 3 m2 05/16/2023 8:55 AM CDT [facility] Blood BLOOD SPECIMEN / Unknown Venipuncture / Unknown 05/16/2023 8:31 AM CDT 05/16/2023 8:38 AM CDT Chan Sarkar MD LAB - CHEMISTRY SHRADDHA JOYA [facility] Organization Address City/State/ZIP Co de Phone Number [facility] [address] [place] [phone] from Last 3 Months or Most Recently Relevant to Health Maintenance Advance Directives * Full Code (Latest Code Status on File) Date Activated Date Inactivated Comments 10/05/2022 2:55 PM 10/06/2022 3:16 PM * Full Code Date Activated Date Inactivated Comments 01/06/2014 10:09 PM 01/10/2014 2:39 PM Care Teams Car Rental Service Attendant Relationship Specialty Start Date End Date Noé Lew MD [address] [place] [address] PCP - General Internal Medicine 07/04/24 Janny Torres MD [address] [place] [phone] Physician Urology 05/07/24
--- OUTSIDE RECORDS SUMMARY | 2024-10-06 09:29 | XMS_ITS | Encounter Summary ---
Author Organization [facility] Address [address] [place] [address] Care Team Providers Care Senior Software Project Manager Name Role Phone Martha Arriaga MD Primary Care Provid er Encounter Details Date Type Department Care Team (Latest Contact Info) Description 06/09/2004 Outpatient Historical [facility]ic [facility] Wound [facility] - [facility] [address] [place] [address] Luis Carlos Saldaña OPEN WOUND KNEE/LEG-COMPL (Primary Dx) Social History Tobacco Use Types Packs/Day Years Used Date Smoking Tobacco: Never Assessed Comments Unknown Sex and Gender Information Value Date Recorded Sex Assigned at Not on file Legal Sex Female 3:23 AM RACK CARRIER Gender Identity Not on file Sexual Orientation Not on file documented as of this encounter Plan of Treatment Not on file documented as of this encounter Visit Diagnoses Diagnosis Open wound of knee, leg (except thigh), and ankle, complicated- Primary documented in this encounter Care Teams Senior Software Project Manager Relationship Specialty Start Date End Date Martha Arriaga MD PCP - General Internal Medicine 05/10/20 documented as of this encounter
--- OUTSIDE RECORDS SUMMARY | 2024-10-06 09:29 | XMS_ITS | Encounter Summary ---
Author Organization [facility] Address [address] [place] [address] Care Team Providers Care Caddy/Caddie Supervisor Name Role Phone Martha Arriaga MD Primary Care Provid er Encounter Details Date Type Department Care Team (Late st Contact Info) Description 07/11/2004 Outpatient Historical [facility]ic and Wound Treatment [facility] - [facility] [address] [place] [address] [place] [address] [place] [address] Social History Tobacco Use Types Packs/Day Years Used Date Smoking Tobacco: Never Assessed Comments Unknown Sex and Gender Information Value Date Recorded Sex Assigned at Not on file Legal Sex Female 3:23 AM AUTOMATIC SEAMER Gender Identity Not on file Sexual Orientation Not on file documented as of this encounter Plan of Treatment Not on file documented as of this encounter Visit Diagnoses Not on filedocumented in this encounter Care Teams Caddy/Caddie Supervisor Relationship Specialty Start Date End Date Martha Arriaga MD PCP - General Internal Medicine 05/10/20 documented as of this encounter
--- OUTSIDE RECORDS SUMMARY | 2024-10-06 09:29 | XMS_ITS | Encounter Summary ---
Author Organization [facility] Address [address] [place] [address] Care Team Providers Care Metal Miner Blasting Name Role Phone Martha Arriaga MD Primary Care Provid er Encounter Details Date Type Department Care Team (Late st Contact Info) Description 09/01/2001 Outpatient Historical [facility] Internal Medicine Medical [place] [facility] [address] [facility] [address] [address] Frankie Raygoza MD NO ADDRESS ON FILE Social History Tobacco Use Types Packs/Day Years Used Date Smoking Tobacco: Never Assessed Comments Unknown Sex and Gender Information Value Date Recorded Sex Assigned at Not on file Legal Sex Female 3:23 AM DRESSMAKER OR TAILOR Gender Identity Not on file Sexual Orientation Not on file documented as of this encounter Plan of Treatment Not on file documented as of this encounter Visit Diagnoses Not on filedocumented in this encounter Care Teams Metal Miner Blasting Relationship Specialty Start Date End Date Martha Arriaga MD PCP - General Internal Medicine 05/10/20 documented as of this encounter
--- OUTSIDE RECORDS SUMMARY | 2024-10-06 09:29 | XMS_ITS | Encounter Summary ---
Author Organization [facility] Address [address] [place] [address] Care Team Providers Care High School Academic Coach Name Role Phone Martha Arriaga MD Primary Care Provid er Encounter Details Date Type Department Care Team (Latest Contact Info) Description 07/11/2004 Outpatient Historical [facility] Hyperbaric and Wound Treatment Center - [facility] [address] [place] [address] Luis Carlos Saldaña OPEN WOUND KNEE/LEG-COMPL (Primary Dx) Social History Tobacco Use Types Packs/Day Years Used Date Smoking Tobacco: Never Assessed Comments Unknown Sex and Gender Information Value Date Recorded Sex Assigned at Not on file Legal Sex Female 3:23 AM TARGETEER Gender Identity Not on file Sexual Orientation Not on file documented as of this encounter Plan of Treatment Not on file documented as of this encounter Visit Diagnoses Diagnosis Open wound of knee, leg (except thigh), and ankle, complicated- Primary documented in this encounter Care Teams High School Academic Coach Relationship Specialty Start Date End Date Martha Arriaga MD PCP - General Internal Medicine 05/10/20 documented as of this encounter
--- OUTSIDE RECORDS SUMMARY | 2024-10-06 09:29 | XMS_ITS | Encounter Summary ---
Author Organization [employer] Address [address] [place] [address] Care Team Providers Care Informatics Developer Name Role Phone Martha Arriaga MD Primary Care Provid er Encounter Details Date Type Department Care Team (Latest Contact Info) Description 03/20/2001 Outpatient Historical [facility], Gerald Jensen MD [address] [place], [place] [id number] Infectious colitis, enteritis, and gastroenteritis (Primary Dx) Social History Tobacco Use Types Packs/Day Years Used Date Smoking Tobacco: Never Assessed Comments Unknown Sex and Gender Information Value Date Recorded Sex Assigned at Not on file Legal Sex Female 3:23 AM FUR SEWER Gender Identity Not on file Sexual Orientation Not on file documented as of this encounter Plan of Treatment Not on file documented as of this encounter Visit Diagnoses Diagnosis Infectious colitis, enteritis, and gastroenteritis- Primary documented in this encounter Care Teams Informatics Developer Relationship Specialty Start Date End Date Martha Arriaga MD PCP - General Internal Medicine 05/10/20 documented as of this encounter
--- OUTSIDE RECORDS SUMMARY | 2024-10-06 09:29 | XMS_ITS | Encounter Summary ---
Author Organization [facility] Address [address] [place] [address] Care Team Providers Care Bleach Packer Name Role Phone Martha Arriaga MD Primary Care Provid er Encounter Details Date Type Department Care Team (Late st Contact Info) Description 06/19/2004 Outpatient Historical [facility]ic and Wound Treatment Center - [facility] [address] [place] [address] Elisa Doshi NO ADDRESS ON FILE Social History Tobacco Use Types Packs/Day Years Used Date Smoking Tobacco: Never Assessed Comments Unknown Sex and Gender Information Value Date Recorded Sex Assigned at Not on file Legal Sex Female 3:23 AM HAND PACKER Gender Identity Not on file Sexual Orientation Not on file documented as of this encounter Plan of Treatment Not on file documented as of this encounter Visit Diagnoses Not on filedocumented in this encounter Care Teams Bleach Packer Relationship Specialty Start Date End Date Martha Arriaga MD PCP - General Internal Medicine 05/10/20 documented as of this encounter
--- OUTSIDE RECORDS SUMMARY | 2024-10-06 09:29 | XMS_ITS | Encounter Summary ---
Author Organization [facility] Address [address] [place] [address] Care Team Providers Care Texture Artist Name Role Phone Martha Arriaga MD Primary Care Provid er Encounter Details Date Type Department Care Team (Late st Contact Info) Description 06/09/2004 Outpatient Historical [facility]ic [facility] W[facility] - [facility] [address] [place] [address] [place] [address] [place] [address] Social History Tobacco Use Types Packs/Day Years Used Date Smoking Tobacco: Never Assessed Comments Unknown Sex and Gender Information Value Date Recorded Sex Assigned at Not on file Legal Sex Female 3:23 AM SEMICONDUCTOR DIES LOADER Gender Identity Not on file Sexual Orientation Not on file documented as of this encounter Plan of Treatment Not on file documented as of this encounter Visit Diagnoses Not on filedocumented in this encounter Care Teams Texture Artist Relationship Specialty Start Date End Date Martha Arriaga MD PCP - General Internal Medicine 05/10/20 documented as of this encounter
--- OUTSIDE RECORDS SUMMARY | 2024-10-06 09:29 | XMS_ITS | Encounter Summary ---
Author Organization [facility] Address [address] [place] [address] Care Team Providers Care Document Analyst Name Role Phone Martha Arriaga MD Primary Care Provid er Encounter Details Date Type Department Care Team (Latest Contact Info) Description 06/16/2004 Outpatient Historical [facility]ic and Wound Treatment [facility] - [facility] [address] [place] [address] Luis Carlos Saldaña OPEN WOUND KNEE/LEG-COMPL (Primary Dx) Social History Tobacco Use Types Packs/Day Years Used Date Smoking Tobacco: Never Assessed Comments Unknown Sex and Gender Information Value Date Recorded Sex Assigned at Not on file Legal Sex Female 3:23 AM POULTRY FARM LABORER Gender Identity Not on file Sexual Orientation Not on file documented as of this encounter Plan of Treatment Not on file documented as of this encounter Visit Diagnoses Diagnosis Open wound of knee, leg (except thigh), and ankle, complicated- Primary documented in this encounter Care Teams Document Analyst Relationship Specialty Start Date End Date Martha Arriaga MD PCP - General Internal Medicine 05/10/20 documented as of this encounter
--- OUTSIDE RECORDS SUMMARY | 2024-10-06 09:29 | XMS_ITS | Encounter Summary ---
Author Organization [facility] Address [address] [place] [address] Care Team Providers Care Shift Commander Name Role Phone Martha Arriaga MD Primary Care Provid er Encounter Details Date Type Department Care Team (Latest Contact Info) Description 09/03/2002 Outpatient Historical [facility] [place] [address] [place] [address] PERS HX CIRCULATORY DIS NEC (Primary Dx) Social History Tobacco Use Types Packs/Day Years Used Date Smoking Tobacco: Never Assessed Comments Unknown Sex and Gender Information Value Date Recorded Sex Assigned at Not on file Legal Sex Female 3:23 AM BELT CHANGER Gender Identity Not on file Sexual Orientation Not on file documented as of this encounter Plan of Treatment Not on file documented as of this encounter Visit Diagnoses Diagnosis Personal history of other diseases of circulatory system- Primary documented in this encounter Care Teams Shift Commander Relationship Specialty Start Date End Date Martha Arriaga MD PCP - General Internal Medicine 05/10/20 documented as of this encounter
--- OUTSIDE RECORDS SUMMARY | 2024-10-06 09:29 | XMS_ITS | Encounter Summary ---
Author Organization [facility] Address [address] [place] [address] Care Team Providers Care Family Advocate Name Role Phone Martha Arriaga MD Primary Care Provid er Encounter Details Date Type Department Care Team (Latest Contact Info) Description 01/10/1999 Outpatient Historical [facility] Cheikh Ortiz MD [facility] [address] [place] [address] Depressive disorder, not elsewhere classified (Primary Dx) Social History Tobacco Use Types Packs/Day Years Used Date Smoking Tobacco: Never Assessed Comments Unknown Sex and Gender Information Value Date Recorded Sex Assigned at Not on file Legal Sex Female 3:23 AM CASE PLANNER Gender Identity Not on file Sexual Orientation Not on file documented as of this encounter Plan of Treatment Not on file documented as of this encounter Visit Diagnoses Diagnosis Depressive disorder, not elsewhere classified- Primary documented in this encounter Care Teams Family Advocate Relationship Specialty Start Date End Date Martha Arriaga MD PCP - General Internal Medicine 05/10/20 documented as of this encounter
--- OUTSIDE RECORDS SUMMARY | 2024-10-06 09:30 | XMS_ITS | Encounter Summary ---
Author Organization [employer] Address [address] [place] [address] Care Team Providers Care Crystal Syrup Maker Name Role Phone Martha Arriaga MD Primary Care Provid er Encounter Details Date Type Department Care Team (Late st Contact Info) Description 06/16/2004 Outpatient Historical [facility] ([facility] Cardiology[facility]) [address] [place] [address] Luis Berkowitz MD NO ADDRESS ON FILE Social History Tobacco Use Types Packs/Day Years Used Date Smoking Tobacco: Never Assessed Comments Unknown Sex and Gender Information Value Date Recorded Sex Assigned at Not on file Legal Sex Female 3:23 AM X RAY DEVELOPER Gender Identity Not on file Sexual Orientation Not on file documented as of this encounter Plan of Treatment Not on file documented as of this encounter Visit Diagnoses Not on filedocumented in this encounter Care Teams Crystal Syrup Maker Relationship Specialty Start Date End Date Martha Arriaga MD PCP - General Internal Medicine 05/10/20 documented as of this encounter
--- OUTSIDE RECORDS SUMMARY | 2024-10-06 09:30 | XMS_ITS | Encounter Summary ---
Author Organization [employer] Address [address] [place] [address] Care Team Providers Care Drier Transfer Car Operator Name Role Phone Martha Arriaga MD [...] Legal Sex Female 3:23 AM DIRECTOR OF ANESTHESIA SERVICES Gender Identity Not on file Sexual Orientation Not on file documented as of this encounter Plan of Treatment Not on file documented as of this encounter Visit Diagnoses Diagnosis Contusion of unspecified part of trunk- Primary documented in this encounter Care Teams Drier Transfer Car Operator Relationship Specialty Start Date End Date Martha Arriaga MD PCP - General Internal Medicine 05/10/20 documented as of this encounter
--- OUTSIDE RECORDS SUMMARY | 2024-10-06 09:30 | XMS_ITS | Encounter Summary ---
Author Organization [facility] Address [address] [place] [address] Care Team Providers Care End Polisher Name Role Phone Martha Arriaga MD Primary Care Provid er Encounter Details Date Type Department Care Team (Late st Contact Info) Description 01/04/1999 Outpatient Historical [facility] Internal Medicine Medical [place] [facility] [address] [place] [phone] Cheikh Tsang MD [address] [facility] [address] [place] [address] Social History Tobacco Use Types Packs/Day Years Used Date Smoking Tobacco: Never Assessed Comments Unknown Sex and Gender Information Value Date Recorded Sex Assigned at Not on file Legal Sex Female 3:23 AM STUDENT RECORDS COORDINATOR Gender Identity Not on file Sexual Orientation Not on file documented as of this encounter Plan of Treatment Not on file documented as of this encounter Visit Diagnoses Not on filedocumented in this encounter Care Teams End Polisher Relationship Specialty Start Date End Date Martha Arriaga MD PCP - General Internal Medicine 05/10/20 documented as of this encounter
--- OUTSIDE RECORDS SUMMARY | 2024-10-06 09:30 | XMS_ITS | Encounter Summary ---
Author Organization [facility] Address [address] [place] [address] Care Team Providers Care Die Maker Stamping Name Role Phone Martha Arriaga MD Primary Care Provid er Encounter Details Date Type Department Care Team (Late st Contact Info) Description 06/16/2004 Outpatient Historical [facility] Trauma and General Surgery [address] [address] [phone] [place] [address] [place] [address] Social History Tobacco Use Types Packs/Day Years Used Date Smoking Tobacco: Never Assessed Comments Unknown Sex and Gender Information Value Date Recorded Sex Assigned at Not on file Legal Sex Female 3:23 AM FLOTATION TANK OPERATOR Gender Identity Not on file Sexual Orientation Not on file documented as of this encounter Plan of Treatment Not on file documented as of this encounter Visit Diagnoses Not on filedocumented in this encounter Care Teams Die Maker Stamping Relationship Specialty Start Date End Date Martha Arriaga MD PCP - General Internal Medicine 05/10/20 documented as of this encounter
--- OUTSIDE RECORDS SUMMARY | 2024-10-06 09:30 | XMS_ITS | Clinical Summary ---
Author Organization [facility] Address [address] [place] [address] Phone Care Team Providers Care Carton Wrapper Name Role Phone Noé Lew MD Primary Care Provider [phone] Allergies Active Allergy Reactions Criticality Noted Date Comments Codeine Anaphylaxis High 02/18/2003 Erythromycin Rash Medium 02/18/2003 Iodine Unknown 07/03/2022 Latex Rash Medium 06/17/2009 Contact; bandaids and condoms Lavender Oil Shortness of Breath High 07/03/2022 Warfarin Rash High 09/23/2008 Medications ergocalciferol (VITAMIN D) 27953 UNIT Capsule TAKE 1 CAPSULE WEEKLY 06/25/2024 Active Active Problems Problem Noted Date Diagnosed Date Factor V Leiden 09/02/2024 Encounters Date Type Department Care Team Description 09/19/2024 Travel 09/09/2024 Travel 09/08/2024 Travel 09/02/2024 3:00 PM POST DOCTORAL RESEARCHER Lab [facility] [address] [place] [phone] Pricila Cruz, NASH Factor V Leiden (HCC) Discharge Disposition: Discharged to home or Selfcare 09/02/2024 2:15 PM POST DOCTORAL RESEARCHER Initial Consult [facility] [address] [place] [address] Noé Lew MD Norris, Arlene [...] on file Legal Sex Female 12:58 PM POST DOCTORAL RESEARCHER Gender Identity Not on file Sexual Orientation Not on file Last Filed Vital Signs Vital Sign Reading Time Taken Comments Blood Pressure 156/65 09/02/2024 2:48 PM POST DOCTORAL RESEARCHER Pulse 77 09/02/2024 2:48 PM POST DOCTORAL RESEARCHER Temperature 36.7 C (98.1 F) 09/02/2024 2:48 PM POST DOCTORAL RESEARCHER Respiratory Rate 18 09/02/2024 2:48 PM POST DOCTORAL RESEARCHER Oxygen Saturation 97% 09/02/2024 2:48 PM POST DOCTORAL RESEARCHER Inhaled Oxygen Concentration - - Weight 148.1 kg (326 lb 9.6 oz) 09/02/2024 2:48 PM POST DOCTORAL RESEARCHER Height 165.1 cm (5' 5 ) 09/02/2024 2:48 PM POST DOCTORAL RESEARCHER Body Mass Index 54.35 09/02/2024 2:48 PM POST DOCTORAL RESEARCHER Plan of Treatment Health Maintenance Due Date [...] Risk 60-74 years 1-dose series) 2014 Mammogram 05/10/2021 05/10/2020, 05/10/2020, 05/17/2017 Influenza Immunization (#1) 2024 [...] LUPUS ANTICOAG PROFILE Routine 09/02/2024 3:24 PM POST DOCTORAL RESEARCHER Factor V Leiden (HCC) BETA-2 GPI AB IGA, IGG, IGM Routine 09/02/2024 3:24 PM POST DOCTORAL RESEARCHER Factor V Leiden (HCC) ANTI CARDIOLIPIN IGG, IGM & IGA Routine 09/02/2024 3:24 PM POST DOCTORAL RESEARCHER Factor V Leiden (HCC) PHOSPHOLIPID PANEL (ACL,B2GP,LUPAP) Routine 09/02/2024 3:24 PM POST DOCTORAL RESEARCHER Factor V Leiden (HCC) ANTI THROMBIN III ACTIVITY Routine 09/02/2024 3:24 PM POST DOCTORAL RESEARCHER Factor V Leiden (HCC) PROTEIN S ACTIVITY Routine 09/02/2024 3: 24 PM POST DOCTORAL RESEARCHER Factor V Leiden (HCC) PROTEIN C ACTIVITY Routine 09/02/2024 3: 24 PM POST DOCTORAL RESEARCHER Factor V Leiden (HCC) from Last 3 Months Results * (ABNORMAL) LUPUS ANTICOAG PROFILE (09/02/2024 3:24 PM POST DOCTORAL RESEARCHER) INR 1.0 0.9 - 1.2 09/04/2024 10:41 AM POST DOCTORAL RESEARCHER [facility] THROMBIN TIME 19.1(H) 15.1 - 18.5 sec 09/04/2024 10:41 AM POST DOCTORAL RESEARCHER [facility] PROTIME-PATIEN T 13.1 11.6 - 14.8 sec 09/04/2024 10:41 AM POST DOCTORAL RESEARCHER [facility] APTT-LA 33.1 30.6 - 38.8 sec 09/04/2024 10:41 AM POST DOCTORAL RESEARCHER [facility] DRVV SCREEN RATIO 1.0 <=1.2 ratio 09/04/2024 10:41 AM POST DOCTORAL RESEARCHER [facility] Blood Venipuncture / Unknown 09/02/2024 3:24 PM POST DOCTORAL RESEARCHER 09/02/2024 3:24 PM POST DOCTORAL RESEARCHER Narrative [facility] - 09/04/2024 10:41 AM POST DOCTORAL RESEARCHER No evidence of lupus-like anticoagulant based on results of Lupus sensitive Activated Partial Thromboplastin Time (APTT) and Dilute Alex's Viper Venom Time (DRVVT). [facility] HEMATOLOGY ORDERABLES Fin al Result Performing Organization Address [facility] Co de Phone Number [facility] [address] [place] [address], [place] * BETA-2 GPI AB IGA, IGG, IGM (09/02/2024 3:24 PM POST DOCTORAL RESEARCHER) BETA-2 GLYCOPROTEIN IGA <2.0 <20.0 APL-U/mL 09/02/2024 10:13 PM POST DOCTORAL RESEARCHER [facility] BETA-2 GLYCOPROTEIN IGG <1.4 <20.0 GPL-U/mL 09/02/2024 10:13 PM POST DOCTORAL RESEARCHER [facility] BETA-2 GLYCOPROTEIN IGM 1.8 <20.0 MPL-U/mL 09/02/2024 10:13 PM POST DOCTORAL RESEARCHER [facility] Blood Venipuncture / Unknown 09/02/2024 3:24 PM POST DOCTORAL RESEARCHER 09/02/2024 3:24 PM POST DOCTORAL RESEARCHER Narrative [facility] - 09/02/2024 10:13 PM POST DOCTORAL RESEARCHER Antibody testing was performed by multiplex flow immunoassay on the [employer] platform. [facility] IMMUNOLOGY ORDERABLES Fin al Result Performing Organization Address [facility] Co de Phone Number [facility] [address] [place] [address], [place] * ANTI CARDIOLIPIN IGG, IGM & IGA (09/02/2024 3:24 PM POST DOCTORAL RESEARCHER) CARDIOLIPIN IGA <2.0 <20.0 APL-U/mL 09/02/2024 10:13 PM POST DOCTORAL RESEARCHER [facility] CARDIOLIPIN IGG <1.6 <20.0 GPL-U/mL 09/02/2024 10:13 PM POST DOCTORAL RESEARCHER [facility] CARDIOLIPIN IGM 2.3 <20.0 MPL-U/mL 09/02/2024 10:13 PM POST DOCTORAL RESEARCHER [facility] Blood Venipuncture / Unknown 09/02/2024 3:24 PM POST DOCTORAL RESEARCHER 09/02/2024 3:24 PM POST DOCTORAL RESEARCHER Narrative [facility] - 09/02/2024 10:13 PM POST DOCTORAL RESEARCHER Antibody testing was performed by multiplex flow immunoassay on the [employer] platform. [facility] IMMUNOLOGY ORDERABLES Fin al Result Performing Organization Address City/[facility]/ZIP Co de Phone Number [facility] [address] [place] [address], [place] * PROTEIN S ACTIVITY (09/02/2024 3:24 PM POST DOCTORAL RESEARCHER) PROTEIN S ACTIVITY 74.0 65 - 129 % 09/04/2024 10:11 AM POST DOCTORAL RESEARCHER [facility] Blood Venipuncture / Unknown 09/02/2024 3:24 PM POST DOCTORAL RESEARCHER 09/02/2024 3:24 PM POST DOCTORAL RESEARCHER [facility] HEMATOLOGY ORDERABLES Fin al Result Performing Organization Address City/[facility] Co de Phone Number [facility] [address] [place] [address], [place] * PROTEIN C ACTIVITY (09/02/2024 3:24 PM POST DOCTORAL RESEARCHER) PROTEIN C ACTIVITY 126.0 79 - 175 % 09/04/2024 10:10 AM POST DOCTORAL RESEARCHER [facility] Blood Venipuncture / Unknown 09/02/2024 3:24 PM POST DOCTORAL RESEARCHER 09/02/2024 3:24 PM POST DOCTORAL RESEARCHER [facility] HEMATOLOGY ORDERABLES Fin al Result Performing Organization Address City/[facility]/ZIP Co de Phone Number [facility] [address] [place] [address], [place] * ANTI THROMBIN III ACTIVITY (09/02/2024 3:24 PM POST DOCTORAL RESEARCHER) ANTITHROMBIN III 112 82 - 139 % 09/02/19 11:54 PM POST DOCTORAL RESEARCHER [facility] Blood Venipuncture / Unknown 09/02/2024 3:24 PM POST DOCTORAL RESEARCHER 09/02/2024 3:24 PM POST DOCTORAL RESEARCHER [facility] HEMATOLOGY ORDERABLES Fin al Result Performing Organization Address City/[facility] Co de Phone Number [facility] [address] [place] [address], [place] from Last 3 Months Insurance MEDICARE C [employer] [place] Care Teams Carton Wrapper Relationship Specialty Start Date End Date Noé Lew MD [address] [place] [address] PCP - General Internal Medicine 07/01/24
--- OUTSIDE RECORDS SUMMARY | 2024-10-06 09:30 | XMS_ITS | Encounter Summary ---
Author Organization [facility] Address [address] [place] [address] Care Team Providers Care Test Inspection Engineer Name Role Phone Martha Arriaga MD Primary Care Provid er Encounter Details Date Type Department Care Team (Late st Contact Info) Description 06/18/1998 Outpatient Historical [facility] Internal Medicine [place] [address] [place] [address] Luis Carlos Watts MD [address] [place] [address] Social History Tobacco Use Types Packs/Day Years Used Date Smoking Tobacco: Never Assessed Comments Unknown Sex and Gender Information Value Date Recorded Sex Assigned at Not on file Legal Sex Female 3:23 AM LIBRARY SUPERVISOR Gender Identity Not on file Sexual Orientation Not on file documented as of this encounter Plan of Treatment Not on file documented as of this encounter Visit Diagnoses Not on filedocumented in this encounter Care Teams Test Inspection Engineer Relationship Specialty Start Date End Date Martha Arriaga MD PCP - General Internal Medicine 05/10/20 documented as of this encounter
--- OUTSIDE RECORDS SUMMARY | 2024-10-06 09:30 | XMS_ITS | Encounter Summary ---
Author Organization [facility] Address [address] [place] [address] Care Team Providers Care Top Lift Compressor Name Role Phone Martha Arriaga MD Primary Care Provid er Encounter Details Date Type Department Care Team (Late st Contact Info) Description 09/20/1998 Outpatient Historical [facility] Internal Medicine Medical [place] [facility] [address] [place] [phone] Cheikh Tsang MD [address] [facility] [address] [place], [place] [id number] Social History Tobacco Use Types Packs/Day Years Used Date Smoking Tobacco: Never Assessed Comments Unknown Sex and Gender Information Value Date Recorded Sex Assigned at Not on file Legal Sex Female 3:23 AM INDUSTRIAL THERAPIST Gender Identity Not on file Sexual Orientation Not on file documented as of this encounter Plan of Treatment Not on file documented as of this encounter Visit Diagnoses Not on filedocumented in this encounter Care Teams Top Lift Compressor Relationship Specialty Start Date End Date Martha Arriaga MD PCP - General Internal Medicine 05/10/20 documented as of this encounter
[2024-10-07 12:08] LABS: Vitamin D 25 Hydroxy 53 ng/mL (30-100)
== END 2024-10-06 08:50 | disposition home or self-care (01) ==
PROVIDERS: PCP Internal Medicine; Visit Provider Internal Medicine
DX: E55.9 Vitamin D deficiency, unspecified (principal); R06.00 Dyspnea, unspecified; R92.8 Other abnormal and inconclusive findings on diagnostic imaging of breast
CPT/HCPCS: 36415; 71046; 77061; 77065; 82306; G0279

== ENCOUNTER 2024-11-19 13:17 | Outpatient (CLI) | payer MEDICARE, MEDICAID, SELFPAY ==
--- NOTE | 2024-11-19 | ECHO_ITS ---
Patient Info Name: Ally Ayala Age: 69 years : 1955 Gender: Female Ht: 65 in Wt: 320 lbs BSA: 2.67 m2 HR: 100 bpm BP: 153 / 101 mmHg Heart Rhythm: Sinus Rhythm Technical Quality: Fair Exam Date: 11/19/2024 1:53 PM Exam Location: Echo Lab Patient Status: Outpatient Admit Date: 11/19/2024 Staff Ordering Physician: VipinNoé MD Cook Mayonna[place]: Li Cerda RDCS Attending Provider: SerenaNoé MD Exam Type: CA echo doppler color flow Study Info Indications - Dyspnea Complete two-dimensional, color flow and Doppler transthoracic echocardiogram is performed. Summary 1. Left ventricular chamber dimension is normal. 2. Left ventricular systolic function is normal, estimated at 60-65%. 3. There is mildly increased left ventricular wall thickness. 4. The left ventricular diastolic function is grade I diastolic dysfunction. 5. Right ventricular systolic function is normal. 6. There is mild tricuspid valve regurgitation. Left Ventricle Left ventricular chamber dimension is normal. Left ventricular systolic function is normal, estimated at 60-65%. There is mildly increased left ventricular wall thickness. The left ventricular diastolic function is grade I diastolic dysfunction. Right Ventricle Right ventricular chamber dimension is normal. Right ventricular systolic function is normal. Left Atria Left atrial chamber dimension is normal. Right Atria Right atrial chamber dimension is normal. Atrial Septum Intact interatrial septum visualized by color flow imaging. Aortic Valve The aortic valve is not well visualized. There is no aortic valve stenosis. There is no aortic valve regurgitation. Pulmonic Valve The pulmonic valve is not well visualized. There is no pulmonic regurgitation. Mitral Valve There is trace mitral valve regurgitation. The mitral valve annulus is mildly calcified. Tricuspid Valve There is mild tricuspid valve regurgitation. Pericardium/Pleural The pericardium appears epicardial fat pad. There is no pericardial effusion. Inferior Vena Cava Inferior vena cava is not well visualized. Aorta The aortic root size at the sinus of Valsalva is normal. Left Ventricular Outflow Tract Name Value Normal LVOT 2D LVOT Diameter 2.1 cm LVOT Doppler LVOT Peak Gradient 4 mmHg LVOT Mean Gradient 2 mmHg LVOT VTI 23 cm LVOT VTI/AV VTI Ratio 1.0 LVOT Stroke Volume 82 ml LVOT CO 6.8 l/min LVOT CI 2.5 l/min/m2 Pulmonic Valve Name Value Normal RVOT Doppler RVOT Peak Gradient 3 mmHg PV Doppler PV Peak Gradient 4 mmHg Mitral Valve Name Value Normal MV Doppler MV Decel Kaufman 793 cm/s2 MV PHT 24 ms MV Area (PHT) 9.2 cm2 4.0-5.0 MV Diastolic Function MV E Peak Velocity 65 cm/s MV A Peak Velocity 99 cm/s MV E/A 0.7 MV Decel Time 82 ms MV Annular TDI MV E/e' (Septal) 16.7 <=8.0 MV E/e' (Lateral) 16.3 <=8.0 MV E/e' (Average) 16.5 Tricuspid Valve Name Value Normal TV Regurgitation Doppler TR Peak Velocity 310 cm/s TR Peak Gradient 39 mmHg Aortic Valve Name Value Normal AV Doppler AV Peak Velocity 114 cm/s AV Peak Gradient 5 mmHg AV Mean Gradient 3 mmHg AV VTI 24 cm AV Area (Cont Eq VTI) 3.4 cm2 >=3.0 AV Area (Cont Eq Otto) 3.1 cm2 AV Regurgitation 2D LVOT Area 3.5 cm2 Ventricles Name Value Normal LV Dimensions 2D/MM IVS Diastolic Thickness (2D) 1.2 cm 0.6-1.0 LVID Diastole (2D) 5.3 cm 3.8-5.2 LVIW Diastolic Thickness (2D) 1.0 cm 0.6-0.9 LVID Systole (2D) 3.3 cm 2.2-3.5 LVOT Diameter 2.1 cm LV Mass (2D Cubed) 227.85 g 67.00-162.00 LV Mass Index (2D Cubed) 85 g/m2 43-95 Relative Wall Thickness (2D) 0.39 LV Fractional Shortening/Ejection Fraction 2D/MM LV Fractional Shortening (2D) 36 % 27-45 LV EF (2D Teicholz) 66 % 54-74 LV Diastolic Volume (4C MOD) 149 ml LV EF (4C MOD) 64 % LV Diastolic Volume (2C MOD) 146 ml LV EF (2C MOD) 66 % LV Diastolic Volume (BP MOD) 148 ml 46-106 LV Diastolic Volume Index (BP MOD) 55 ml/m2 29-61 LV Systolic Volume (BP MOD) 53 ml 14-42 LV Systolic Volume Index (BP MOD) 20 ml/m2 8-24 LV EF (BP MOD) 64 % 54-74 LV Diastolic Length (4C) 8.4 cm LV Systolic Length (4C) 7.1 cm LV Stroke Volume (4C MOD) 95 ml Atria Name Value Normal LA Dimensions LA Volume (4C A-L) 70 ml RA Dimensions RA Area (4C) 18.8 cm2 <=18.0 Report Signatures
--- OUTSIDE RECORDS SUMMARY | 2024-11-19 13:46 | XMS_ITS | Clinical Summary ---
Author Organization [facility] Address [address] [facility] [address] [facility] [address] [place] [address] Care Team Providers Care Driver License Examiner Name Role Phone Janny Torres MD Unavailable [phone] Noé Lew MD Primary Care Provider [phone] [facility],non-owned Affiliates and Associated Physician Practices is amultiple site organization consisting of ambulatory clinics and hospital sitesin [place], [place], [place] and [place]. This disclosure is being madepursuant to the Care Everywhere program and may not contain all information available regarding this patient. Last updated 18.[facility] Allergies Active Allergy Reactions Criticality Noted Date [...] Status vitamin D, ergocalciferol, (Drisdol) 1.25 MG (49625 UT) capsule 1 (one) capsule every 7 days 06/25/2024 Active Active Problems Problem Noted Date Diagnosed Date Right renal stone 10/05/2022 Cellulitis 01/07/2014 Leg swelling 01/06/2014 Fall from other slipping, tripping, or stumbling 11/20/2008 Encounters Date Type Department Care Team Description 09/07/2024 10:00 AM TRANSACTIONAL PARALEGAL Office Visit [facility] - Rheumatology [address] [place] [address] Gaby Lion MD Ribonucleoprotein antibody positive (Primary [...] Sex Assigned at Female 07/19/2022 2:59 PM TRANSACTIONAL PARALEGAL Gender Identity Female 07/19/2022 2:59 PM TRANSACTIONAL PARALEGAL Sexual Orientation Straight 07/19/2022 2: 59 PM TRANSACTIONAL PARALEGAL Last Filed Vital Signs Vital Sign Reading Time Taken Comments Blood Pressure 151/94 09/07/2024 9:55 AM TRANSACTIONAL PARALEGAL Pulse 90 09/07/2024 9:55 AM TRANSACTIONAL PARALEGAL Temperature 36.6 C (97.9 F) 09/07/2024 9:55 AM TRANSACTIONAL PARALEGAL Respiratory Rate 14 05/16/2023 11:17 AM CDT Oxygen Saturation 92% 09/07/2024 9:55 AM TRANSACTIONAL PARALEGAL Inhaled Oxygen Concentration - - Weight 150.1 kg (331 lb) 09/07/2024 9:55 AM TRANSACTIONAL PARALEGAL Height 165.1 cm (5' 5 ) 09/07/2024 9:55 AM TRANSACTIONAL PARALEGAL Body Mass Index 55.08 09/07/2024 9:55 AM TRANSACTIONAL PARALEGAL Plan of Treatment Upcoming Encounters Date Type Department Care Team (Late st Contact Info) Description 05/06/2025 10:00 AM CDT Office Visit [facility] - Urology [address] [...] 05/10/2022 05/10/2020, 05/17/2017 COVID-19 VACCINE (1 - 2023- season) 2024 MEDICARE AWV CALENDAR YEAR 2024 INFLUENZA VACCINE (Season Ended) 2025 SCREENING FOR DIABETES 05/16/2026 , 05/03/2023, 10/05/2022, Additional history exists COLOGUARD (AGES [...] complete this topic MENINGOCOCCAL (Group B) VACCINE SHARED DECISION-MAKING Aged Out No longer eligible based on patient's age to complete this topic MENINGOCOCCAL GROUPS A/C/Y/W VACCINE Aged Out No longer eligible based on patient's age to complete this topic Medical Devices Implanted Type Area Property Management Bookkeeper Device Identifier Shelf Expiration Date Model / Serial / Lot Stent Uret 6fr 22-30cm Pgtl Crv Tpr Tip Implanted:Qty: 1 on 10/05/2022 by Janny Torres MD at [facility] Right: Ureter [employer] Scimed 06/24/2025 [id number] / / [id number] Procedures Procedure Name Priority Date/Time Associated Diagnosis Comments BASIC METABOLIC PANEL (CALCIUM TOTAL) TEQUILA 05/16/2023 8:31 AM CDT Right renal stone from Last 3 Months or Most Recently Relevant to Health Maintenance Results * (ABNORMAL) BASIC METABOLIC PANEL (CALCIUM TOTAL) (05/16/2023 8:31 AM CDT) Glucose 107(H) 70 - 105 mg/dL 05/16/2023 8:55 AM CDT [facility] Sodium 141 136 - 145 mmol/L 05/16/2023 8:55 AM CDT [facility] Potassium 4.0 3.5 - 5.1 mmol/L 05/16/2023 8:55 AM CDT [facility] Chloride 102 98 - 107 mmol/L 05/16/2023 8:55 AM CDT [facility] CO2 29 22 - 29 mmol/L 05/16/2023 8:55 AM CDT [facility] Calcium 9.4 8.4 - 10.4 mg/dL 05/16/2023 8:55 AM CDT [facility] Anion Gap 10 6 - 16 mmol/L 05/16/2023 8:55 AM CDT [facility] BUN 20 7 - 26 mg/dL 05/16/2023 8:55 AM CDT [facility] Creatinine 1.37(H) 0.57 - 1.11 mg/dL 05/16/2023 8:55 AM CDT [facility] eGFR by CKD-EPI 42(L) >=90 mL/min/1.7 3 m2 05/16/2023 8:55 AM CDT [facility] Blood BLOOD SPECIMEN / Unknown Venipuncture / Unknown 05/16/2023 8:31 AM CDT 05/16/2023 8:38 AM CDT Chan Sarkar MD LAB - CHEMISTRY KRISTINAE MAHNA[facility] Organization Address City/State/ZIP Co de Phone Number [facility] [address] [place] [address] from Last 3 Months or Most Recently Relevant to Health Maintenance Advance Directives * Full Code (Latest Code Status on File) Date Activated Date Inactivated Comments 10/05/2022 2:55 PM 10/06/2022 3:16 PM * Full Code Date Activated Date Inactivated Comments 01/06/2014 10:09 PM 01/10/2014 2:39 PM Care Teams Driver License Examiner Relationship Specialty Start Date End Date Noé Lew MD [address] [place] [phone] PCP - General Internal Medicine 07/04/24 Janny Torres MD [id number] [place] [id number] Physician Urology 05/07/24
--- OUTSIDE RECORDS SUMMARY | 2024-11-19 13:46 | XMS_ITS | Encounter Summary ---
Author Organization [facility] Address 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
--- OUTSIDE RECORDS SUMMARY | 2024-11-19 13:46 | XMS_ITS | Encounter Summary ---
Author Organization [facility] Address [address] [place] [address] Care Team Providers Care Gravity Manager Name Role Phone Martha Arriaga MD [...] on file Legal Sex Female 3:23 AM COIL WRAPPER Gender Identity Not on file Sexual Orientation Not on file documented as of this encounter Plan of Treatment Not on file documented as of this encounter Visit Diagnoses Diagnosis Contusion of knee- Primary documented in this encounter Care Teams Gravity Manager Relationship Specialty Start Date End Date Martha Arriaga MD PCP - General Internal Medicine 05/10/20 documented as of this encounter
--- OUTSIDE RECORDS SUMMARY | 2024-11-19 13:46 | XMS_ITS | Encounter Summary ---
Author Organization [facility] Address [address] [place] [address] Care Team Providers Care Art Tracer Name Role Phone Martha Arriaga MD Primary Care Provid er Encounter Details Date Type Department Care Team (Late st Contact Info) Description 04/26/2005 Outpatient Historical [facility] [address] [place] [id number] Luis Carlos Saldaña Social History Tobacco Use Types Packs/Day Years Used Date Smoking Tobacco: Never Assessed Comments Unknown Sex and Gender Information Value Date Recorded Sex Assigned at Not on file Legal Sex Female 3:23 AM STEEL MOLDER Gender Identity Not on file Sexual Orientation Not on file documented as of this encounter Plan of Treatment Not on file documented as of this encounter Visit Diagnoses Not on filedocumented in this encounter Care Teams Art Tracer Relationship Specialty Start Date End Date Martha Arriaga MD PCP - General Internal Medicine 05/10/20 documented as of this encounter
--- OUTSIDE RECORDS SUMMARY | 2024-11-19 13:46 | XMS_ITS | Encounter Summary ---
Author Organization [facility] Address [address] [place] [address] Care Team Providers Care Concrete Hopper Operator Name Role Phone Martha Arriaga MD Primary Care Provid er Encounter Details Date Type Department Care Team (Late st Contact Info) Description 10/30/2001 Outpatient Historical [facility] Internal Medicine Medical [place] [facility] [address] [facility] [address] [place] [phone] Cheikh Tsang MD [address] [facility] [address] [place], [place] [id number] Social History Tobacco Use Types Packs/Day Years Used Date Smoking Tobacco: Never Assessed Comments Unknown Sex and Gender Information Value Date Recorded Sex Assigned at Not on file Legal Sex Female 3:23 AM SMALL BUSINESS CONSULTANT Gender Identity Not on file Sexual Orientation Not on file documented as of this encounter Plan of Treatment Not on file documented as of this encounter Visit Diagnoses Not on filedocumented in this encounter Care Teams Concrete Hopper Operator Relationship Specialty Start Date End Date Martha Arriaga MD PCP - General Internal Medicine 05/10/20 documented as of this encounter
--- OUTSIDE RECORDS SUMMARY | 2024-11-19 13:46 | XMS_ITS | Data Portability ---
Author Organization [facility] DARLIN[facility]rian Address [address] [place] [address] Care Team Providers Care Altitude Chamber Technician Name Role Phone DEMETRIUS LEW Primary Care Provider HENRIQUE AGUILAR General Operations Agent Assessment Encounter Date Assessment Date Assessment LastModified [...] care instructions mammogram refuses flu refuses COVID [email or web address] Not available 06/13/2024 17:57:21 10/02/2024 10/02/2024 2nd opinion on t he biopsy for her thyroid healthy lifestyle care instructions she was up appointment for mammogram and breast ultrasound coming up I believe next week other medications we will continue. Complete PFTs she does have a smoking history also we will get echocardiogram she will see me back in 3 months. Chest x-ray. Dermatology. Not available 10/03/2024 17:20:43 Plan of Treatment Reminders Order Date Submit Date Provider Last Modified By Organization Details Last Modified Time Details Appointments ANNUAL 30 2024 01:15P Duke Lew MD Not available Not available Not available Lab CBC w/ auto diff 2023 [facility], [address], [address], [place], [address], 06/23/2024 13:12:39 urinalysi s complete, reflex culture 2023 024 [facility], [address], [address], [place], [address], 06/23/2024 13:12:30 rf (rheumato id factor), serum 2023 024 [facility], [address], [address], [place], [address], 06/23/2024 13:12:41 BRIDGER (antinucl ear antibodie s) screen, serum 2023 024 [facility], [address], [address], [place], [address], 06/23/2024 13:12:25 ESR (erythroc yte sedimenta tion rate), blood 2023 024 [facility], [address], [place], [address], 06/23/2024 13:12:40 C reactive protein, QN, serum or plasma 2023 024 [facility], [address], [address], [place], [address], 06/23/2024 13:12:42 T3, free, serum or plasma 2023 024 [facility], [address], [address], [place], [address], 06/23/2024 13:12:44 T4, free, serum 2023 [facility], [address], [address], [place], [address], 06/23/2024 13:12:46 TSH, ultra-sen sitive, serum 2023 024 [facility], [address], [place], [address], 06/23/2024 13:12:36 vitamin D, 25-hydrox y, total, serum 2023 [facility], [address], [place], [address], 06/23/2024 13:12:47 lipid panel, serum 2023 024 [facility], [address], [place], [address], 06/23/2024 13:12:27 CMP, serum or plasma 2023 024 [facility], [address], [place], [address], 06/23/2024 13:12:28 factor V mutation, blood or tissue 2023 024 [facility], [address], [place], [address], 06/23/2024 13:12:32 protein S Ag, total + free, plasma 2023 024 [facility], [address], [place], [address], 06/15/2024 15:10:24 protein C Ag, total, plasma 2023 [facility], [address], [place], [address], 06/14/2024 17:07:43 antiphosp holipid antibody panel, serum 2023 [facility], [address], [place], [address], 06/23/2024 13:12:26 homocyste ine, moles/vol ume, serum 2023 [facility], [address], [place], [address], 06/23/2024 13:12:33 antithrom bin activity, plasma 2023 [facility], [address], [place], [address], 06/15/2024 06:07:57 HbA1c (hemoglob in A1c), blood 2023 024 [facility], [address], [place], [address], 06/23/2024 13:12:35 insulin, serum 2023 [facility], [address], [place], [address], 06/23/2024 13:12:38 noninvasi ve colorecta l cancer DNA + occult blood screening , QL, stool 2023 [facility] (Cologuard Orders Only), [address], [place], [address], 07/24/2024 01:04:44 vitamin B12 + folate, serum or blood 2023 024 [facility], [address], [place], [address], 06/23/2024 13:12:34 Referral ENT surgery referral 2024 025 nataliia Banks MD, [address], [place], [address], 11/12/2024 11:58:33 dermatolo gist referral 2024 025 [facility], [address] [place], [address], 11/12/2024 11:58:33 Procedures None recorded. Surgeries None recorded. Imaging electroca rdiogram 2024 025 [email or web address] In-Office Order, Internal Use Only DO Not Attach Compendium DO Not Attach Compendium, Do Not Delete/merge, [id number] 10/05/2024 12:55:14 PFT, complete - with DLCO 2024 025 [facility]), [address], [place], [address], 11/12/2024 11:01:06 US, echocardi ogram 2024 025 [facility] [address], [place], [address], 11/12/2024 11:05:27 MAMMO, screening , digital, bilateral 2023 024 [facility], [address], [place], [address], 09/16/2024 18:24:37 CT, abdomen + pelvis, w/ contrast [address] [facility] (Ultrasound Scheduling), [address] [place], [address], 07/15/2024 11:52:15 Medication Orders None recorded. Patient TargetsNo targets recorded. 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 Referral for S kin lesion Referring Physician: Demetrius Lew, Internal Medicine, Encounter Date: 10/02/2024 ENT Surgery Referral for Thy roid nodule Referring Physician: Demetrius Lew, Internal Medicine, Encounter Date: 10/02/2024 Results Created Date Observation Date Name Description Value Unit Range Abnormal Flag Note LastModifiedBy Organization Detail LastModifiedTime 06/12/2006/14/2024 PROTE IN C ANTIG EN protein C antigen 116 % 60-150 Not Available [facility] ([facility]) [address] [facility], [place], [address], 06/14/2024 17:07:43 06/12/20 24 06/14/2024 ANTIT HROMB IN ACTIV ITY antithrombin activity 117 % 75-135 Direc t Xa inhib itor antic oagul ants such as rivar oxaba n, apixa ban and edoxa ban will lead to spuri ously eleva eduardo antit hromb in activ ity level s possi yessenia maski ng a defic iency . Not Available [facility] ([facility]) [address] [facility] [address], [place], [address], 06/15/2024 06:07:57 06/12/20 24 06/15/2024 PROTE IN S PANEL protein S, total 111 % 60-150 This test was devel oped and its perfo rmanc e syeda cteri stics deter mined by [facility]. It has not been clear ed or appro shannon by the Food and Drug Admin istra tion. Not Available [facility] ([facility]) [address] [facility] [address], [place], [address], 06/15/2024 15:10:24 06/12/20 24 06/15/2024 PROTE IN S PANEL protein S, free 106 % 61-136 Not Available [facility] ([facility]) [address] [facility] [address], [place], [address], 06/15/2024 15:10:24 06/12/20 24 06/15/2024 PROTE IN [...] r V Leide n befor e wilfredo g a diagn osis of prote in S [...] and essen tial throm bocyt hemia . Repephil nolan ation on a new plasm a sampl e to confi rm or refut e this resul t corry d be consi dered , after namrata g out acqui red cause s, depen ding on the clini gretchen scena kennedy. Not Available [facility] ([facility]) [address] [facility] [address], [place], [address], 06/15/2024 15:10:24 06/12/20 24 06/15/2024 MAGNUS+C 3+C4+ DNA/D S+ANT ICH+C EN... anti-DNA (ds) Ab qn <1 IU/mL 0-9 Negat min <5 Equiv ocal 5 - 9 Posit min >9 Not Available [facility] ([facility]) [address] [facility] [address], [place], [address], 06/23/2024 13:12:24 06/12/20 24 06/15/2024 MAGNUS+C 3+C4+ DNA/D S+ANT ICH+C EN... printed circuit boards pinner antibodies 1.0 ai 0.0-0. 9 above high normal Not Available [facility] ([facility]) [address] [place], [address], 06/23/2024 13:12:24 06/12/20 24 06/15/2024 MAGNUS+C 3+C4+ DNA/D S+ANT ICH+C EN... szymanski antibodies <0.2 ai 0.0-0. 9 Not Available [facility] ([facility]) [address] [place], [address], 06/23/2024 13:12:24 06/12/20 24 06/15/2024 MAGNUS+C 3+C4+ DNA/D S+ANT ICH+C EN... antisclerode rma-70 antibodies <0.2 Not Available [facility] ([facility]) [address] [place], [address], 06/23/2024 13:12:24 06/12/20 24 06/15/2024 MAGNUS+C 3+C4+ DNA/D S+ANT ICH+C EN... sjogren's anti-ss-A <0.2 Not Available [facility] ([facility]) [address] [facility] [address], [place], [address], 06/23/2024 13:12:24 06/12/20 24 06/15/2024 MAGNUS+C 3+C4+ DNA/D S+ANT ICH+C EN... sjogren's anti-ss-B <0.2 Not Available [facility] ([facility]) [address] [facility] [address], [place], [address], 06/23/2024 13:12:24 06/12/20 24 06/15/2024 MAGNUS+C 3+C4+ DNA/D S+ANT ICH+C EN... antichromati n antibodies <0.2 Not Available [facility] ([facility]) [address] [place], [address], 06/23/2024 13:12:24 06/12/20 24 06/15/2024 MAGNUS+C 3+C4+ DNA/D S+ANT ICH+C EN... anti-hellen-1 <0.2 Not Available [facility] ([facility]) [address] [place], [address], 06/23/2024 13:12:24 06/12/20 24 06/15/2024 MAGNUS+C 3+C4+ DNA/D S+ANT ICH+C EN... anti-centrom ere B antibodies <0.2 Not Available [facility] ([facility]) [address] [place], [address], 06/23/2024 13:12:24 06/12/20 24 06/15/2024 MAGNUS+C 3+C4+ DNA/D S+ANT ICH+C EN... see below: Commen t Autoa ntibo dy Disea se Assoc iatio n ----- ----- ----- ----- ----- ----- ----- ----- ----- ----- ----- ----- Condi tion Frequ ency ----- ----- ----- ----- - ----- ----- [...] ----- ----- ----- ----- --- ----- ---- [employer] Mixed [employer] ctive Tissu e Disea se 95% (U1 nRNP, SLE 30 - 50% anti- ribon ucleo prote in) Polym yosit is and/o r Villanueva tomyo sitis 20% ----- ----- ----- ----- - ----- ----- ----- ----- ---- ----- ---- Scl-7 0 (anti DNA Scler oderm a (diff use) 20 - 35% topoi alea ase) Crest 13% ----- ----- ----- ----- - ----- ----- ----- ----- ---- ----- ---- Hellen-1 Polym yosit is and/o r Villanueva tomyo sitis 20 - 40% ----- ----- ----- ----- - ----- ----- ----- ----- ---- ----- ---- Centr omere B Scler oderm a - Crest varia nt 80% Not Available [facility] ([facility]) [address] [place], [address], 06/23/2024 13:12:24 06/12/20 24 06/16/2024 MAGNUS+C 3+C4+ DNA/D S+ANT ICH+C EN... complement C3, serum 225 mg/dL 82-167 above high normal Not Available [facility] ([facility]) [address] [place], [address], 06/23/2024 13:12:24 06/12/20 24 06/16/2024 MAGNUS+C 3+C4+ DNA/D S+ANT ICH+C EN... complement C4, serum 22 mg/dL 12-38 Not Available [facility] ([facility]) [address] [facility] [address], [place], [address], 06/23/2024 13:12:24 06/12/20 24 06/15/2024 BRIDGER BRIDGER direct POSITI VE negati ve abnormal Not Available [facility] ([facility]) [address] [facility] [address], [place], [address], 06/23/2024 13:12:25 06/12/20 24 06/12/2024 ANTIP HOSPH [...] PI, PG, and PS are based on oskarphil garay popray [facility] data stand ardiz ed to equiv alent [...] ----- ----- ----- ----- Not Available [facility] ([facility]) [address] [place], [address], 06/23/2024 13:12:26 06/12/20 24 06/23/2024 ANTIP HOSPH OLIPI D ANTIB ROSETTE specimen status COMMEN T [facility] t sent via fax. Not Available [facility] ([facility]) [address] [place], [address], 06/23/2024 13:12:26 06/12/20 24 06/13/2024 LIPID PANEL cholesterol, total 168 mg/dL 100-19 9 Not Available [facility] ([facility]) [address] [place], [address], 06/23/2024 13:12:27 06/12/20 24 06/13/2024 LIPID PANEL triglyceride s 151 mg/dL 0-149 above high normal Not Available [facility] ([facility]) [address] [place], [address], 06/23/2024 13:12:27 06/12/20 24 06/13/2024 LIPID PANEL HDL cholesterol 41 mg/dL >39 Not Available [facility] ([facility]) [address] [place], [address], 06/23/2024 13:12:27 06/12/20 24 06/13/2024 LIPID PANEL VLDL cholesterol gretchen 27 mg/dL 5-40 Not Available [facility] ([facility]) [address] [facility] [place], [address], 06/23/2024 13:12:27 06/12/20 24 06/13/2024 LIPID PANEL LDL chol calc ([facility]) 100 mg/dL 0-99 above high normal Not Available [facility] ([facility]) [address] [facility] [place], [address], 06/23/2024 13:12:27 06/12/20 24 06/13/2024 COMP. METAB OLIC PANEL (14) glucose 107 mg/dL 70-99 above high normal Not Available [facility] ([facility]) [address] [facility] [place], [address], 06/23/2024 13:12:28 06/12/20 24 06/13/2024 COMP. METAB OLIC PANEL (14) BUN 18 mg/dL 8-27 Not Available [facility] ([facility]) [address] [facility] [place], [address], 06/23/2024 13:12:28 06/12/20 24 06/13/2024 COMP. METAB OLIC PANEL (14) creatinine 1.13 mg/dL 0.57-1 .00 above high normal Not Available [facility] ([facility]) [address] [place], [address], 06/23/2024 13:12:28 06/12/20 24 06/13/2024 COMP. METAB OLIC PANEL (14) eGFR 52 mL/mi n/1.7 3 >59 below low normal Not Available [facility] ([facility]) [address] [place], [address], 06/23/2024 13:12:28 06/12/20 24 06/13/2024 COMP. METAB OLIC PANEL (14) BUN/creatini ne ratio 16 12-28 Not Available [facility] ([facility]) [address] [place], [address], 06/23/2024 13:12:28 06/12/20 24 06/13/2024 COMP. METAB OLIC PANEL (14) sodium 142 mmol/ L 134-14 4 Not Available [facility] ([facility]) [address] [place], [address], 06/23/2024 13:12:28 06/12/20 24 06/13/2024 COMP. METAB OLIC PANEL (14) potassium 4.5 mmol/ L 3.5-5. 2 Not Available [facility] ([facility]) [address] [place], [address], 06/23/2024 13:12:28 06/12/20 24 06/13/2024 COMP. METAB OLIC PANEL (14) chloride 102 mmol/ L 96-106 Not Available [facility] ([facility]) [address] [place], [address], 06/23/2024 13:12:28 06/12/20 24 06/13/2024 COMP. METAB OLIC PANEL (14) carbon dioxide, total 27 mmol/ L 20-29 Not Available [facility] ([facility]) [address] [place], [address], 06/23/2024 13:12:28 06/12/20 24 06/13/2024 COMP. METAB OLIC PANEL (14) calcium 9.2 mg/dL 8.7-10 .3 Not Available [facility] ([facility]) [address] [place], [address], 06/23/2024 13:12:28 06/12/20 24 06/13/2024 COMP. METAB OLIC PANEL (14) protein, total 7.6 g/dL 6.0-8. 5 Not Available [facility] ([facility]) [address] [place], [address], 06/23/2024 13:12:28 06/12/20 24 06/13/2024 COMP. METAB OLIC PANEL (14) albumin 4.1 g/dL 3.9-4. 9 Not Available [facility] ([facility]) [address] [facility] [address], [place], [address], 06/23/2024 13:12:28 06/12/20 24 06/13/2024 COMP. METAB OLIC PANEL (14) globulin, total 3.5 g/dL 1.5-4. 5 Not Available [facility] ([facility]) [address] [facility] [address], [place], [address], 06/23/2024 13:12:28 06/12/20 24 06/13/2024 COMP. METAB OLIC PANEL (14) bilirubin, total 0.7 mg/dL 0.0-1. 2 Not Available [facility] ([facility]) [address] [facility] [address], [place], [address], 06/23/2024 13:12:28 06/12/20 24 06/13/2024 COMP. METAB OLIC PANEL (14) alkaline phosphatase 74 IU/L 44-121 Not Available [facility] ([facility]) [address] [place], [address], 06/23/2024 13:12:28 06/12/20 24 06/13/2024 COMP. METAB OLIC PANEL (14) AST (SGOT) 32 IU/L 0-40 Not Available [facility] ([facility]) [address] [place], [address], 06/23/2024 13:12:28 06/12/20 24 06/13/2024 COMP. METAB OLIC PANEL (14) ALT (SGPT) 29 IU/L 0-32 Not Available [facility] ([facility]) [address] [place], [address], 06/23/2024 13:12:28 11/01/06/13/2024 MICRO SCOPI C EXAMI NATIO N WBC >30 /hpf 0-5 abnormal Not Available [facility] ([facility]) [address] [facility], [place], [address], 06/23/2024 13:12:30 06/12/20 24 06/13/2024 MICRO SCOPI C EXAMI NATIO N RBC 0-2 /hpf 0-2 Not Available [facility] ([facility]) [address] [facility], [place], [address], 06/23/2024 13:12:30 06/12/20 24 06/13/2024 MICRO SCOPI C EXAMI NATIO N epithelial cells (non renal) 0-10 /hpf 0-10 Not Available [facility] ([facility]) [address], [place], [address], 06/23/2024 13:12:30 06/12/20 24 06/13/2024 MICRO SCOPI C EXAMI NATIO N casts None seen /lpf nonese en Not Available [facility] ([facility]) [address] [facility] [address], [place], [address], 06/23/2024 13:12:30 06/12/20 24 06/13/2024 MICRO SCOPI C EXAMI NATIO N bacteria Many nonese en/few abnormal Not Available [facility] ([facility]) [address] [facility] [address], [place], [address], 06/23/2024 13:12:30 06/12/20 24 06/13/2024 UA WITH CULTU RE REFLE X specific gravity 1.019 1.005- 1.030 Not Available [facility] ([facility]) [address] [place], [address], 06/23/2024 13:12:30 06/12/20 24 06/13/2024 UA WITH CULTU RE REFLE X pH 6.5 5.0-7. 5 Not Available [facility] ([facility]) [address] [facility] [place], [address], 06/23/2024 13:12:30 06/12/20 24 06/13/2024 UA WITH CULTU RE REFLE X urine-color YELLOW yellow Not Available [facility] ([facility]) [address] [facility] [address], [place], [address], 06/23/2024 13:12:30 06/12/20 24 06/13/2024 UA WITH CULTU RE REFLE X appearance CLOUDY clear abnormal Not Available [facility] ([facility]) [address] [facility] [address], [place], [address], 06/23/2024 13:12:30 06/12/20 24 06/13/2024 UA WITH CULTU RE REFLE X WBC esterase 2+ negati ve abnormal Not Available [facility] ([facility]) [address] [facility] [address], [place], [address], 06/23/2024 13:12:30 06/12/20 24 06/13/2024 UA WITH CULTU RE REFLE X protein 2+ negati ve/tra ce abnormal Not Available [facility] ([facility]) [address] [facility] [address], [place], [address], 06/23/2024 13:12:30 06/12/20 24 06/13/2024 UA WITH CULTU RE REFLE X glucose NEGATI VE negati ve Not Available [facility] ([facility]) [address] [facility] [address], [place], [address], 06/23/2024 13:12:30 06/12/20 24 06/13/2024 UA WITH CULTU RE REFLE X ketones NEGATI VE negati ve Not Available [facility] ([facility]) [address] [place], [address], 06/23/2024 13:12:30 06/12/20 24 06/13/2024 UA WITH CULTU RE REFLE X occult blood TRACE negati ve abnormal Not Available [facility] ([facility]) [address] [facility] [address], [place], [address], 06/23/2024 13:12:30 06/12/20 24 06/13/2024 UA WITH CULTU RE REFLE X bilirubin NEGATI VE negati ve Not Available [facility] ([facility]) [address] [facility] [address], [place], [address], 06/23/2024 13:12:30 06/12/20 24 06/13/2024 UA WITH CULTU RE REFLE X urobilinogen ,semi-qn 1.0 mg/dL 0.2-1. 0 Not Available [facility] ([facility]) [address] [facility] [address], [place], [address], 06/23/2024 13:12:30 06/12/20 24 06/13/2024 UA WITH CULTU RE REFLE X nitrite, urine POSITI VE negati ve abnormal Not Available [facility] ([facility]) [address] [facility] [address], [place], [address], 06/23/2024 13:12:30 06/12/20 24 06/13/2024 UA WITH CULTU RE REFLE X microscopic examination SEE BELOW: Micro scopi c was indic ated and was perfo rmed. Not Available [facility] ([facility]) [address] [facility] [address], [place], [address], 06/23/2024 13:12:30 06/12/20 24 06/13/2024 UA WITH CULTU RE REFLE X urinalysis reflex COMMEN T This speci men has refle xed to a Urine Cultu re. Not Available [facility] ([facility]) [address] [place], [address], 06/23/2024 13:12:30 06/12/20 24 06/19/2024 FACTO R V LEIDE N MUTAT ION factor V leiden COMMEN T abnormal Resul t: c.160 1G>A (p.Ar g534G ln) - Detec eduardo, [facility] This resul t is assoc iated with [...] for venou s throm boemb olism . [facility] chapis ers of this varia nt have [...] Facto r V Leide n (PMID : [id number] [id number]). Addit ional risk facto rs inclu [...] ders to discu ss resul ts at [phone] -345- GENE (9544 ). Test Detai ls: Varia nt Kaela zed: c.160 1G>A (p. Arg53 4Gln) , refer red to as Facto r V Leide n Metho ds/Li mitat ions: DNA kaela sis of the F5 gene ([id number]) was perfo rmed by PCR ampli [...] 10.10 38/s4 1436- 021-0 1108- x. PMID: 54642 767. Robert cohen JL. Facto r V Leide n Throm bophi neisha. 1998December 23 (Upda eduardo 2017Aug 15). In: Rajinder MP, Shyann russell HH, Irvin RA, et al., umang rs. GeneR cordell s(R) (Inte rnet) . Gary marx ([place]): Unive rsity of Gary Evans; 1992- 2020. Avail able from: https ://carson w.ncb i.nlm .nih. gov/b ooks/ NBK13 68/ Rakan S, Saturnino luna AK, Deshawn X, Shemar B, Spect or EB, Itzel P, Cara armando CS; [facility] [address] Labor atory Quali ty Assur ance Commi ttee. Venou s throm boemb olism labor atory testi ng (fact or V Leide n and facto r II c.*97 G>A), 2018 updat e: a techn ical stand rip of the [facility] al [employer] [employer] ([facility] [address] ). Pardeep Med. 2017;2 0(12) :1489 -1498 . doi: 10.10 38/s4 1436- 018-0 322-z . Epub 2017May 16. PMID: 86159 698. Not Available [facility] ([facility]) [address] [facility] [address], [place], [address], 06/23/2024 13:12:32 06/12/20 24 06/19/2024 FACTO R V LEIDE N MUTAT ION reviewed by: SARAH Olivares Techn ical [place] nent perfo rmed at [facility] Proftal shaw al [place] nent perfo rmed by: Labor atory Corpo ratio n of Felicityeri ca Holdi ngs Kevin calhoun, Ph.D. , [facility] Direc tor, Molec ular [employer]ardeep [employer] [address] [place] [address] Not Available [facility] ([facility]) [address] [facility] [address], [place], [address], 06/23/2024 13:12:32 06/12/20 24 06/13/2024 HOMOC YST(E )INE homocyst(E)i ne 13.7 umol/ L 0.0-17 .2 Not Available [facility] ([facility]) [address] [facility], [place], [address], 06/23/2024 13:12:33 06/12/20 24 06/13/2024 VITAM IN B12 AND FOLAT E vitamin B12 349 pg/mL 232-12 45 Not Available [facility] ([facility]) [address] [facility] [address], [place], [address], 06/23/2024 13:12:34 06/12/20 24 06/13/2024 VITAM IN B12 AND FOLAT E folate (folic acid), serum 7.0 NG/mL >3.0 A serum folat e tushar ntrat ion of less than 3.1 ng/mL is consi dered to repre sent clini gretchen defic iency . Not Available [facility] ([facility]) [address], [place], [address], 06/23/2024 13:12:34 06/12/20 24 06/13/2024 HEMOG LOBIN A1C hemoglobin A1C 6.5 % 4.8-5. 6 above high normal Predi abete s: 5.7 - 6.4 Diabe bashir: >6.4 Glyce terrell contr ol for adult s with diabe bashir: <7.0 Not Available [facility] ([facility]) [address] [facility] [address], [place], [address], 06/23/2024 13:12:35 06/12/20 24 06/13/2024 TSH TSH 0.019 uIU/m L 0.450- 4.500 below low normal Not Available [facility] ([facility]) [address] [facility] [address], [place], [address], 06/23/2024 13:12:36 06/12/20 24 06/13/2024 INSUL IN insulin 25.3 uIU/m L 2.6-24 .9 above high normal Not Available [facility] ([facility]) [address] [facility] [address], [place], [address], 06/23/2024 13:12:37 06/12/20 24 06/13/2024 CBC WITH DIFFE RENTI AL/PL ATELE T WBC 5.4 x10e3 /uL 3.4-10 .8 Not Available [facility] ([facility]) [address] [facility] [address], [place], [address], 06/23/2024 13:12:39 06/12/20 24 06/13/2024 CBC WITH DIFFE RENTI AL/PL ATELE T RBC 5.30 x10e6 /uL 3.77-5 .28 above high normal Not Available [facility] ([facility]) [address] [facility], [place], [address], 06/23/2024 13:12:39 06/12/20 24 06/13/2024 CBC WITH DIFFE RENTI AL/PL ATELE T hemoglobin 14.0 g/dL 11.1-1 5.9 Not Available [facility] ([facility]) [address] [place], [address], 06/23/2024 13:12:39 06/12/20 24 06/13/2024 CBC WITH DIFFE RENTI AL/PL ATELE T hematocrit 44.1 % 34.0-4 6.6 Not Available [facility] ([facility]) [address] [facility], [place], [address], 06/23/2024 13:12:39 06/12/20 24 06/13/2024 CBC WITH DIFFE RENTI AL/PL ATELE T MCV 83 fL 79-97 Not Available [facility] ([facility]) [address] [facility], [place], [address], 06/23/2024 13:12:39 06/12/20 24 06/13/2024 CBC WITH DIFFE RENTI AL/PL ATELE T MCH 26.4 pg 26.6-3 3.0 below low normal Not Available [facility] ([facility]) [address] [facility], [place], [address], 06/23/2024 13:12:39 06/12/20 24 06/13/2024 CBC WITH DIFFE RENTI AL/PL ATELE T MCHC 31.7 g/dL 31.5-3 5.7 Not Available [facility] ([facility]) [address] [place], [address], 06/23/2024 13:12:39 06/12/20 24 06/13/2024 CBC WITH DIFFE RENTI AL/PL ATELE T RDW 14.6 % 11.7-1 5.4 Not Available [facility] ([facility]) [address] [place], [address], 06/23/2024 13:12:39 06/12/20 24 06/13/2024 CBC WITH DIFFE RENTI AL/PL ATELE T platelets 186 x10e3 /uL 150-45 0 Not Available [facility] ([facility]) [address] [place], [address], 06/23/2024 13:12:39 06/12/20 24 06/13/2024 CBC WITH DIFFE RENTI AL/PL ATELE T neutrophils 58 % notest ab. Not Available [facility] ([facility]) [address] [place], [address], 06/23/2024 13:12:39 06/12/20 24 06/13/2024 CBC WITH DIFFE RENTI AL/PL ATELE T lymphs 32 % notest ab. Not Available [facility] ([facility]) [address] [facility] [place], [address], 06/23/2024 13:12:39 06/12/20 24 06/13/2024 CBC WITH DIFFE RENTI AL/PL ATELE T monocytes 7 % notest ab. Not Available [facility] ([facility]) [address] [facility], [place], [address], 06/23/2024 13:12:39 06/12/20 24 06/13/2024 CBC WITH DIFFE RENTI AL/PL ATELE T eos 2 % notest ab. Not Available [facility] ([facility]) [address] [place], [address], 06/23/2024 13:12:39 06/12/20 24 06/13/2024 CBC WITH DIFFE RENTI AL/PL ATELE T basos 1 % notest ab. Not Available [facility] ([facility]) [address] [facility], [place], [address], 06/23/2024 13:12:39 06/12/20 24 06/13/2024 CBC WITH DIFFE RENTI AL/PL ATELE T neutrophils (absolute) 3.1 x10e3 /uL 1.4-7. 0 Not Available [facility] ([facility]) [address] [place], [address], 06/23/2024 13:12:39 06/12/20 24 06/13/2024 CBC WITH DIFFE RENTI AL/PL ATELE T lymphs (absolute) 1.7 x10e3 /uL 0.7-3. 1 Not Available [facility] ([facility]) [address] [place], [address], 06/23/2024 13:12:39 06/12/20 24 06/13/2024 CBC WITH DIFFE RENTI AL/PL ATELE T monocytes(ab solute) 0.4 x10e3 /uL 0.1-0. 9 Not Available [facility] ([facility] [address] [facility] [place], [address], 06/23/2024 13:12:39 06/12/20 24 06/13/2024 CBC WITH DIFFE RENTI AL/PL ATELE T eos (absolute) 0.1 x10e3 /uL 0.0-0. 4 Not Available [facility] ([facility]) [address] [facility], [place], [address], 06/23/2024 13:12:39 06/12/20 24 06/13/2024 CBC WITH DIFFE RENTI AL/PL ATELE T baso (absolute) 0.0 x10e3 /uL 0.0-0. 2 Not Available [facility] ([facility]) [address] [facility], [place], [address], 06/23/2024 13:12:39 06/12/20 24 06/13/2024 CBC WITH DIFFE RENTI AL/PL ATELE T immature granulocytes 0 % notest ab. Not Available [facility] ([facility]) [address] [facility], [place], [address], 06/23/2024 13:12:39 06/12/20 24 06/13/2024 CBC WITH DIFFE RENTI AL/PL ATELE T immature grans (abs) 0.0 x10e3 /uL 0.0-0. 1 Not Available [facility] ([facility]) [address] [facility], [place], [address], 06/23/2024 13:12:39 06/12/20 24 06/13/2024 SEDIM ENTAT ION RATE- WESTE RGREN sedimentatio n rate-westerg andrey 48 mm/HR 0-40 above high normal Not Available [facility] ([facility]) [address] [facility], [place], [address], 06/23/2024 13:12:40 06/12/20 24 06/13/2024 RHEUM ATOID FACTO R (RF) rheumatoid factor (rf) <10.0 IU/mL <14.0 Not Available [facility] ([facility]) [address] [place], [address], 06/23/2024 13:12:41 06/12/20 24 06/13/2024 C-ZOEY CTIVE PROTE IN, QUANT C-reactive protein, quant 21 mg/L 0-10 above high normal Not Available [facility] ([facility]) [address] [place], [address], 06/23/2024 13:12:42 06/12/20 24 06/16/2024 URINE CULTU RE, EMI NE urine culture, routine Final report abnormal Not Available [facility] ([facility]) [address] [facility], [place], [address], 06/23/2024 13:12:44 06/12/20 24 06/16/2024 URINE CULTU RE, EMI NE result 1 Escher ichia coli abnormal [...] ng units per mL Not Available [facility] ([facility]) [address] [place], [address], 06/23/2024 13:12:44 06/12/20 24 06/16/2024 URINE CULTU RE, EMI NE antimicrobia l susceptibili ty Commen t [...] thopr im/Villalobos lfa S Not Available [facility] ([facility]) [address] [facility], [place], [address], 06/23/2024 13:12:44 06/12/20 24 06/13/2024 TRIIO DOTHY CELESTINE E (T3), FREE triiodothyro nine (T3), free 3.5 pg/mL 2.0-4. 4 Not Available [facility] ([facility]) [address] [place], [address], 06/23/2024 13:12:44 06/12/20 24 06/13/2024 T4,FR EE(DI RECT) T4,free(dire ct) 1.41 NG/dL 0.82-1 .77 Not Available [facility] ([facility]) [address] [place], [address], 06/23/2024 13:12:46 06/12/20 24 06/13/2024 VITAM IN [...] intak es for calci um and D. Washi ngton [place]: [facility] . 2. Nnamdi johnston MF, Deniz villegas [place], Abilio off-F angel i SANCHEZ, et al. Evalu ation , treat ment, and preve ntion of vitam in D defic iency : an Endoc rine Socie ty clini gretchen pract ice guide line. JCEM. 2010; 96(7) :1911 -30. Not Available [facility] ([facility]) [address], [place], [address], 06/23/2024 13:12:47 07/04/2007/04/2024 Creat inine [Mass /volu me] in Blood creatinine [mass/volume ] in blood 0.86 mg/dL low: 0.7mg/ dLhigh : 1.2mg/ dL Creat inine POCT 0.86 0.70 - 1.20 mg/dL 07/04 4:14 PM CARTOGRAPHIC [facility] Not Available Not Available 09/25/2024 13:08:40 07/04/20 24 07/04/2024 Creat inine [Mass /volu me] in Blood glomerular filtration rate/1.73 sq M.predicted [volume rate/area] in serum, plasma or blood by creatinine-b ased formula (CKD-epi 2020) 73 text: >=90 mL/min /1.73 m2 low eGFR 73 (L) >=90 mL/mi n/1.7 3 m2 07/04 4:14 PM [facility]OGRAPHIC [facility] Not Available Not Available 09/25/2024 13:08:40 07/04/20 24 07/04/2024 Creat inine [Mass /volu me] in Blood interpretati on and review of laboratory results Abnorm al Not Available Not Available 13:08:40 07/17/20 24 07/17/2024 COLOG UARD cologuard result reportable NEGATI VE negati ve normal NEGAT MIN TEST RESUL T. A negat min Colog uard resul t indic ates a low likel ihood that a color ectal cance r (CRC) or advan mike adeno ma (polo omato us polyp s with more advan mike pre-m align ant featu res) is prese nt. The [facility] e that a perso n with a negat min Colog uard test has a color ectal cance r is less than 1 in 1500 (nega tive predi ctive value >99.9 %) or has an advan mike adeno ma is less than 5.3% (nega tive predi ctive value 94.7% ). These data are based on a prosp ectiv e cross -sect ional study of ,00 0 indiv idual s at [facility] risk for color ectal cance r who were scree jus with both Colog uard and colon oscop y. (Zak Olivares. et al, N Engl J Med 2014; 370(1 4):12 86-12 97) The oskar l value (refe rence range ) for this assay is negat min. COLOG UARD RE-SC REEANISH NG RECOM MENDA TION: Perio dic color ectal cance r scree leonel is an impor tant part of preve ntive healt hcare for asymp tomat ic indiv idual s at [facility] risk for color ectal cance r. Follo wing a negat min Colog uard resul t, the Ameri can Cance r Socie ty and U.S. Multi -Soci ety Task Force scree leonel guide lines recom mend a Colog uard re-sc reeanish ng inter kenny of 3 years . Refer ences : Ameri can Cance r Socie ty Guide line for Color ectal Cance r Scree leonel: https ://carson w.can cer.o rg/ca ncer/ colon -rect al-ca ncer/ detec tion- diagn osis- stagi ng/ac s-rec ommen datio ns.ht ml.; Bernard ISLAS, Abril REYNOSO, Colleen CONDON, Color ectal Cance r Scree leonel: Recom menda tions for Physi cians and Patie nts from the U.S. Multi -Soci ety Task Force on Color ectal Cance r Sosae leonel , Felicity Gonzalez oente rolog y 2017; 112:1 016-1 030. TEST DESCR IPTIO N: [place] site algor ithmi c kaela sis of stool DNA-b ioelder kers with hemog lobin immun oassa y. [...] cross -sect ional scree leonel study of ,00 0 indiv idual s at [facility] risk for color ectal cance r who [...] inter kenny is every 3 years . (Darron oviedo Cance r Socie ty and U.S. Multi -Soci ety Task Force ). Colog uard perfo rmanc e data in a 10,00 0 patie nt pivot al study using colon oscop y as the refer ence metho d can be acces sed at the follo wing locat ion: www.e xactl abs.c om/re sults . Addit ional descr iptio n of the Colog uard test proce ss, warni ngs and preca ution s can be found at www.c keily rip.c om. Not Available [facility] (Cologuard Orders Only) [address], [place], [address], 07/24/2024 01:04:44 09/02/19 25 09/04/2024 Prote in S actua l/nor mal in Plate let poor plasm a by Coagu latio n assay protein S actual/oskar l in platelet poor plasma by coagulation assay 74 % low: 65%hig h: 129% PROTE IN S ACTIV ITY 74.0 65 - 129 % 09/04 10:11 AM CARTOGRAPHIC DRAFTER [facility] Not Available Not Available 09/25/2024 13:08:29 09/02/19 25 09/04/2024 Prote in S actua l/nor mal in Plate let poor plasm a by Coagu latio n assay interpretati on and review of laboratory results Normal Not Available Not Available 09/12 13:08:29 09/02/19 25 09/04/2024 Prote in C actua l/nor mal in Plate let poor plasm a by Coagu latio n assay protein C actual/oskar l in platelet poor plasma by coagulation assay 126 % low: 79%hig h: 175% PROTE IN C ACTIV ITY 126.0 79 - 175 % 09/04 10:10 AM CARTOGRAPHIC [facility]RAF[facility] Not Available Not Available 09/25/2024 13:08:29 09/02/19 25 09/04/2024 Prote in C actua l/nor mal in Plate let poor plasm a by Coagu latio n assay interpretati on and review of laboratory results Normal Not Available Not Available 09/12 13:08:29 09/02/19 25 09/03/2024 Antit hromb in actua l/nor mal in Plate let poor plasm a by Chrom ogeni c metho d antithrombin actual/oskar l in platelet poor plasma by chromogenic method 112 % low: 82%hig h: 139% ANTIT HROMB IN III 112 82 - 139 % 09/02 11:54 PM CARTOGRAPHIC [facility]RAF[facility] Not Available Not Available 09/25/2024 13:08:29 09/02/19 25 09/03/2024 Antit hromb in actua l/nor mal in Plate let poor plasm a by Chrom ogeni c metho d interpretati on and review of laboratory results Normal Not Available Not Available 09/12 13:08:29 10/02/19 25 10/03/2024 COMP. METAB OLIC PANEL (14) glucose 107 mg/dL 70-99 above high normal Not Available [facility] ([facility]) [address] [place], [address], 10/03/2024 09:08:14 10/02/19 25 10/03/2024 COMP. METAB OLIC PANEL (14) BUN 21 mg/dL 8-27 Not Available [facility] ([facility]) [address] [place], [address], 10/03/2024 09:08:14 10/02/19 25 10/03/2024 COMP. METAB OLIC PANEL (14) creatinine 1.18 mg/dL 0.57-1 .00 above high normal Not Available [facility] ([facility]) [address] [place], [address], 10/03/2024 09:08:14 10/02/19 25 10/03/2024 COMP. METAB OLIC PANEL (14) eGFR 50 mL/mi n/1.7 3 >59 below low normal Not Available [facility] ([facility]) [address], [place], [address], 10/03/2024 09:08:14 10/02/19 25 10/03/2024 COMP. METAB OLIC PANEL (14) BUN/creatini ne ratio 18 12-28 Not Available [facility] ([facility]) [address] [place], [address], 10/03/2024 09:08:14 10/02/19 25 10/03/2024 COMP. METAB OLIC PANEL (14) sodium 139 mmol/ L 134-14 4 Not Available [facility] ([facility]) [address] [place], [address], 10/03/2024 09:08:14 10/02/19 25 10/03/2024 COMP. METAB OLIC PANEL (14) potassium 4.1 mmol/ L 3.5-5. 2 Not Available [facility] ([facility]) [address], [place], [address], 10/03/2024 09:08:14 10/02/19 25 10/03/2024 COMP. METAB OLIC PANEL (14) chloride 101 mmol/ L 96-106 Not Available [facility] ([facility]) [address] [facility] [place], [address], 10/03/2024 09:08:14 10/02/19 25 10/03/2024 COMP. METAB OLIC PANEL (14) carbon dioxide, total 25 mmol/ L 20-29 Not Available [facility] ([facility]) [address] [facility] [place], [address], 10/03/2024 09:08:14 10/02/19 25 10/03/2024 COMP. METAB OLIC PANEL (14) calcium 9.4 mg/dL 8.7-10 .3 Not Available [facility] ([facility]) [address] [facility] [place], [address], 10/03/2024 09:08:14 10/02/19 25 10/03/2024 COMP. METAB OLIC PANEL (14) protein, total 7.6 g/dL 6.0-8. 5 Not Available [facility] ([facility]) [address] [facility], [place], [address], 10/03/2024 09:08:14 10/02/19 25 10/03/2024 COMP. METAB OLIC PANEL (14) albumin 4.2 g/dL 3.9-4. 9 Not Available [facility] ([facility]) [address] [facility], [place], [address], 10/03/2024 09:08:14 10/02/19 25 10/03/2024 COMP. METAB OLIC PANEL (14) globulin, total 3.4 g/dL 1.5-4. 5 Not Available [facility] ([facility]) [address] [facility], [place], [address], 10/03/2024 09:08:14 10/02/19 25 10/03/2024 COMP. METAB OLIC PANEL (14) bilirubin, total 0.7 mg/dL 0.0-1. 2 Not Available [facility] ([facility]) [address] [facility], [place], [address], 10/03/2024 09:08:14 10/02/19 25 10/03/2024 COMP. METAB OLIC PANEL (14) alkaline phosphatase 70 IU/L 44-121 Not Available [facility] ([facility]) [address] [facility], [place], [address], 10/03/2024 09:08:14 10/02/19 25 10/03/2024 COMP. METAB OLIC PANEL (14) AST (SGOT) 30 IU/L 0-40 Not Available [facility] ([facility]) [address] [facility], [place], [address], 10/03/2024 09:08:14 10/02/19 25 10/03/2024 COMP. METAB OLIC PANEL (14) ALT (SGPT) 22 IU/L 0-32 Not Available [facility] ([facility]) [address] [facility], [place], [address], 10/03/2024 09:08:14 10/02/19 25 10/03/2024 VITAM IN B12 vitamin B12 329 pg/mL 232-12 45 Not Available [facility] ([facility]) [address] [facility], [place], [address], 10/03/2024 09:08:16 10/02/19 25 10/03/2024 CBC WITH DIFFE RENTI AL/PL ATELE T WBC 6.1 x10e3 /uL 3.4-10 .8 Not Available [facility] ([facility]) [address] [facility], [place], [address], 10/03/2024 09:08:16 10/02/19 25 10/03/2024 CBC WITH DIFFE RENTI AL/PL ATELE T RBC 5.24 x10e6 /uL 3.77-5 .28 Not Available [facility] ([facility]) [address] [facility], [place], [address], 10/03/2024 09:08:16 10/02/19 25 10/03/2024 CBC WITH DIFFE RENTI AL/PL ATELE T hemoglobin 13.6 g/dL 11.1-1 5.9 Not Available [facility] ([facility]) [address] [facility], [place], [address], 10/03/2024 09:08:16 10/02/1910/03/2024 CBC WITH DIFFE RENTI AL/PL ATELE T hematocrit 43.4 % 34.0-4 6.6 Not Available [facility] ([facility]) [address] [place], [address], 10/03/2024 09:08:16 10/02/19 25 10/03/2024 CBC WITH DIFFE RENTI AL/PL ATELE T MCV 83 fL 79-97 Not Available [facility] ([facility]) [address] [place], [address], 10/03/2024 09:08:16 10/02/19 25 10/03/2024 CBC WITH DIFFE RENTI AL/PL ATELE T MCH 26.0 pg 26.6-3 3.0 below low normal Not Available [facility] ([facility]) [address] [place], [address], 10/03/2024 09:08:16 10/02/1910/03/2024 CBC WITH DIFFE RENTI AL/PL ATELE T MCHC 31.3 g/dL 31.5-3 5.7 below low normal Not Available [facility] ([facility]) [address] [place], [address], 10/03/2024 09:08:16 10/02/1910/03/2024 CBC WITH DIFFE RENTI AL/PL ATELE T RDW 14.5 % 11.7-1 5.4 Not Available [facility] ([facility]) [address] [place], [address], 10/03/2024 09:08:16 10/02/19 25 10/03/2024 CBC WITH DIFFE RENTI AL/PL ATELE T platelets 181 x10e3 /uL 150-45 0 Not Available [facility] ([facility]) [address] [place], [address], 10/03/2024 09:08:16 10/02/19 25 10/03/2024 CBC WITH DIFFE RENTI AL/PL ATELE T neutrophils 57 % notest ab. Not Available [facility] ([facility]) [address] [place], [address], 10/03/2024 09:08:16 10/02/19 25 10/03/2024 CBC WITH DIFFE RENTI AL/PL ATELE T lymphs 33 % notest ab. Not Available [facility] ([facility]) [address] [facility], [place], [address], 10/03/2024 09:08:16 10/02/19 25 10/03/2024 CBC WITH DIFFE RENTI AL/PL ATELE T monocytes 7 % notest ab. Not Available [facility] ([facility]) [address] [facility], [place], [address], 10/03/2024 09:08:16 10/02/19 25 10/03/2024 CBC WITH DIFFE RENTI AL/PL ATELE T eos 2 % notest ab. Not Available [facility] ([facility]) [address] [facility], [place], [address], 10/03/2024 09:08:16 10/02/19 25 10/03/2024 CBC WITH DIFFE RENTI AL/PL ATELE T basos 1 % notest ab. Not Available [facility] ([facility]) [address] [facility], [place], [address], 10/03/2024 09:08:16 10/02/19 25 10/03/2024 CBC WITH DIFFE RENTI AL/PL ATELE T neutrophils (absolute) 3.5 x10e3 /uL 1.4-7. 0 Not Available [facility] ([facility]) [address] [facility], [place], [address], 10/03/2024 09:08:16 10/02/19 25 10/03/2024 CBC WITH DIFFE RENTI AL/PL ATELE T lymphs (absolute) 2.0 x10e3 /uL 0.7-3. 1 Not Available [facility] ([facility]) [address] [place], [address], 10/03/2024 09:08:16 10/02/19 25 10/03/2024 CBC WITH DIFFE RENTI AL/PL ATELE T monocytes(ab solute) 0.4 x10e3 /uL 0.1-0. 9 Not Available [facility] ([facility]) [address] [facility], [place], [address], 10/03/2024 09:08:16 10/02/19 25 10/03/2024 CBC WITH DIFFE RENTI AL/PL ATELE T eos (absolute) 0.1 x10e3 /uL 0.0-0. 4 Not Available [facility] ([facility]) [address] [facility], [place], [address], 10/03/2024 09:08:16 10/02/19 25 10/03/2024 CBC WITH DIFFE RENTI AL/PL ATELE T baso (absolute) 0.0 x10e3 /uL 0.0-0. 2 Not Available [facility] ([facility]) [address] [facility], [place], [address], 10/03/2024 09:08:16 10/02/19 25 10/03/2024 CBC WITH DIFFE RENTI AL/PL ATELE T immature granulocytes 0 % notest ab. Not Available [facility] ([facility]) [address] [facility], [place], [address], 10/03/2024 09:08:16 10/02/19 25 10/03/2024 CBC WITH DIFFE RENTI AL/PL ATELE T immature grans (abs) 0.0 x10e3 /uL 0.0-0. 1 Not Available [facility] ([facility]) [address] [facility], [place], [address], 10/03/2024 09:08:16 09/08/19 25 09/08/2024 US, thyro id No observ ation record ed. [facility] [address], [place], [address], 09/09/2024 11:58:44 09/16/19 25 09/16/2024 MAMMO , scree leonel, digit al, bilat eral No observ ation record ed. [facility] [address] [place], [address], 09/25/2024 13:08:29 09/18/19 25 09/18/2024 fine needl e aspir ation , ultra sound guide d, thyro id (PROC ) No observ ation record ed. [address], [place], [address], 09/21/2024 09:45:02 09/18/19 25 09/18/2024 fine needl e aspir ation , ultra sound guide d, thyro id (PROC ) No observ ation record ed. [address], [place], [address], 09/20/2024 23:17:20 10/02/19 25 elect rocar diogr am No observ ation record ed. [facility] In-Office Order Internal Use Only DO Not Attach Compendium DO Not Attach Compendium, Do Not Delete/merge, [id number] 10/02/2024 11:52:34 10/02/19 25 10/02/2024 elect rocar diogr am No observ ation record ed. [facility] In-Office Order Internal Use Only DO Not Attach Compendium DO Not Attach Compendium, Do Not Delete/merge, [id number] 10/02/2024 11:59:11 10/06/19 25 10/06/2024 MAMMO , diagn ostic , unila teral No observ ation record ed. [facility] [address] [place], [address], 10/09/2024 14:46:12 10/06/19 25 10/06/2024 XR, chest No observ ation record ed. [facility] [address] [place], [address], 10/09/2024 11:22:04 Result Notes None recorded. Problems Name Problem SNOMED Code Status Onset Date Resolution Date Notes Provider Name and Address Organization Details Recorded Time Body mass index 40+ - severely obese 131508949 Active 2023 FR[place], [place] - [facility] 11:02:32 Morbid obesity 922863971 Active 2023 [place] [facility] 4 11:02:33 Joint pain 02625204 Active 2023 [place] [facility] 4 11:02:34 Non-alcoho lic fatty liver 756349173 Active 2023 [place] [facility] 4 11:02:34 Vitamin D deficiency 21860670 Active 2023 [place] [facility] 4 11:02:35 Gastroesop hageal reflux disease without esophagiti s 851922926 Active 2023 [place] [facility] 4 11:02:40 Serum vitamin B12 below reference range 703086223 Active 2023 [place] [facility] 4 11:02:41 History of deep vein thrombosis 172444294 Active 2023 x3 according to patient never recommende d to be on chronic anticoagul ation saw hematologi st in past Demetrius Lew MD Attn: [place] [place], [address] , [place] [facility] 4 17:58:06 Screening for malignant neoplasm of colon Active 2023 [place] [facility] 4 11:04:36 Screening mammograph y Active 2023 [place] [facility] 4 11:04:37 Polycystic ovary syndrome 487294316 Active 2023 [place] [facility] 4 11:12:48 Thyroid nodule 717618019 Active 2024 [place] [facility] 11:59:02 Problem Notes None recorded. Procedures Surgical History Date Name Laterality Status Provider Name and Address Organization Details Recorded Time 08/12/[address] [facility], [facility] 06/12/2024 10:42:50 08/12/[address] [facility] 06/12/2024 10:43:20 08/12/[address] [facility], [facility] 06/12/2024 10:43:16 08/12/[address] [facility], [facility] 06/12/2024 10:41:25 08/12/[address] [facility], [facility] 06/12/2024 10:41:03 08/12/18 [address] [facility], [facility] 06/12/2024 10:42:44 08/12/[address] [facility] 06/12/2024 10:48:49 08/12/[address] [facility], [facility] 06/12/2024 10:44:21 Imaging Results Imaging Date Name Status LastModified by Organization Details LastModified Time 09/08/2024 US, thyroid completed [address] [place] [address], [id number], 09/09/2024 11:58:44 09/16/2024 MAMMO, screening, digital, bilateral completed [place] [address] [place], [id number], 09/25/2024 13:08:29 09/18/2024 fine needle aspiration, ultrasound guided, thyroid (PROC) completed [address] [place] [address], [id number], 09/21/2024 09:45:02 09/18/2024 fine needle aspiration, ultrasound guided, thyroid (PROC) completed [address] [place] [address], [id number], 09/20/2024 23:17:20 10/02/2024 electrocardiogram completed [facility] Internal Use Only DO Not Attach Compendium DO Not Attach Compendium, Do Not Delete/merge, [id number] 10/02/2024 11:52:34 10/02/2024 electrocardiogram completed [facility] Order Internal Use Only DO Not Attach Compendium DO Not Attach Compendium, Do Not Delete/merge, [id number] 10/02/2024 11:59:11 10/06/2024 MAMMO, diagnostic, unilateral completed [facility] [address] [place], [address], 10/09/2024 14:46:12 10/06/2024 XR, chest completed [facility] [address] [place], [address], 10/09/2024 11:22:04 Procedure Notes None recorded. Medical Equipment None Reported. Allergies Allergen ID Allergen Name Allergen Category Reaction Reaction Severity Criticality Documentation Date Start Date Code Code System Note Provider Name and Address Organization Details Recorded Time 163348 Demerol medicatio n Not available Not available Not available 06/12/2024 21657 1 RxNorm Not Available Not Available Not Available 896305 shellfish derived food,medi cation Not available Not available Not available 06/12/2024 35524 UNK Not Available Not Available Not Available 244070 Naprosyn medicatio n Not available Not available Not available 06/12/2024 35637 2 RxNorm Not Available Not Available Not Available 736756 codeine medicatio n anaphylax is Not available high 06/12/20242002 2670 RxNorm Not Available Not Available Not Available 572437 Robaxin medicatio n Not available Not available Not available 06/12/2024 90632 5 RxNorm Not Available Not Available Not Available 720945 erythromy eitan medicatio n rash Not available high 06/12/20242008 4053 RxNorm Not Available Not Available Not Available 176809 latex environme nt,medica tion rash Not available high 06/12/20242008 [address]; andrea ids and condo ms Not Available Not Available Not Available 585144 Iodinated contrast media (substanc e) medicatio n Not available Not available Not available 10/02/2024 46806 2004 SNOMED Not Available Not Available Not Available 073004 iodine medicatio n Not available Not available Not available 10/02/20242021 5933 RxNorm unrec ogniz ed react ion (text : Unkno wn, code: [id number]) (from exter nal sourc e) Not Available Not Available Not Available 288378 lavender extract food Not available Not available Not available 10/02/2024 69188 67 RxNorm Not Available Not Available Not Available 038125 Coumadin medicatio n hives severe high 10/02/202477203 1 RxNorm Not Available Not Available Not [...] BY MOUTH 2 HOURS BEFORE CAT SCAN 10/02 completed Not Available Not Available Not Available tramadol 50 mg tablet Take 1 [...] Updated DateTime 4 165.1 cm 53.8 kg/m2 848420. 13 g 88 /min 95 % 95 % 130 mm[Hg] 88 mm[Hg] Yanci Virgen MA [facility] 4 10:15:51 Date Recorded Body height Body mass index (BMI) Body weight Heart rate Oxygen saturation Oxygen saturation in Arterial blood by Pulse oximetry Systolic blood pressure Diastolic blood pressure Provider Name and Address Organization Details Last Updated DateTime 5 165.1 cm 54.1 kg/m2 734812. 6 g 94 /min 96 % 96 % 132 mm[Hg] 68 mm[Hg] Yanci Virgen MA [facility] 5 10:45:02 Social History Question Answer Notes LastModified by Organizat ion Details LastModified Time Tobacco Smoking Status Former Smoker FREDDY Mcguire, [facility] 06/12/2024 10:18:40 Do You Have An Advance [...] Date Of Your Most Recent Tobacco Screening? 10/02/2024 Information not available 10/02/2024 What Is Your Relationship Status? Single Information [...] Heart disease gwardma Not available 2023 10:36:25 Maternal Uncle Malignant melanoma of skin gwardma Not available 2024 10:44:21 Medical History Condition Response Anxiety Disorder Y [...] SNOMED-CT Code Diagnosis ICD10 Code Diagnosis Note [id number] MD Shani Douglas (Adult Med) [address] [place] [phone] 0 06/12/2024 09:48:33 06/12/2024 11:00:39 Body mass index 40+ - severely obese 799372253 Z68.43 Morbid obesity 669528490 E66.01 Joint pain 65149248 M25. 50 Non-alcoho lic fatty liver 846951416 K76.0 Vitamin D deficiency 347 25939 E55.9 Serum alondra min B12 below reference range 926204779 R79.89 Gastroesop hageal reflux disease without esophagitis 641879743 K21.9 Screening mammography 24 928406 Z12.31 Screening for malignant neoplasm of colon 791829365 Z12.11 History of deep vein thrombosis 722547613 Z86.718 Polycystic ovary syndrome 934783033 E28.2 Screening for cardiovascular system disease 878300263 Z13.6 Long-term drug therapy 422532025 Z79.891 Fatigue 42906118 R53.83 Abdominal pain 00903171 R10.9 Influenza vaccination declined 876985470 Z28.21 SARS-CoV-2 vaccination declined 2733436183 Z28.21 [id number] Raúl Grissom [facility] [address] [place] [phone] 0 10/02/2024 10:17:39 10/02/2024 12:06:58 Body mass index 40+ - severely obese 740719803 Z68.43 Morbid obesity 597034270 E66.01 Dyspnea 248400436 R06.00 Skin lesion 50667110 L98 .9 Thyroid nodule 793017572 E04.1 Gastroesop hageal reflux disease without esophagitis 408734369 K21.9 Joint pain 97791537 M25. 50 Non-alcoho lic fatty liver 543960500 K76.0 Health Concerns Section Related Observation LastModified by Organization Detai ls LastModified Time None Recorded Concern Status LastModified by Organization Details LastModified Time None Recorded Advance Directives Directive N: Payers Encounter Date Sequence Insurance Name Policy Number Policy Durbin Covered Member ID Durbin Member ID Guarantor Name 06/12/2024 1 [employer] BETTER HE[employer] - PREMIER PLAN - DUAL (MEDICARE - MEDICAID REPLACEMENT HMO) Ally Ayala [id number] Ally Ayala 10/02/2024 1 [employer] (MEDICARE REPLACEMENT HMO) Ally Ayala [id number] Ally Ayala 10/02/2024 2 [place] WHEN MEDICARE OR MEDICARE REPLACEMENT PRIMARY) Ally Ayala [id number] Ally Ayala Notes Date Note Type Note [...] with. Demetrius Lew MD Attn: Accounting,[address] [place], [address], [facility] 06/13/2024 17:59:15 10/02/2024 text/html short of breath for many months that is not really getting any worse. No cough or wheezing no PND orthopnea or edema. Thyroid no nodule equivocal biopsy results. GERD denies nausea or vomiting joint pain comes and goes. States that she saw the radio host positive BRIDGER she saw Rheumatology who felt she did not have any clinical rheumatological diagnosis. Down in her left groin she has a pigmented skin FREDDY Vasques, [place] - [place] 10/05/2024 11:47:57 OBGyn Episode No OBEpisode recorded.
--- OUTSIDE RECORDS SUMMARY | 2024-11-19 13:46 | XMS_ITS | Encounter Summary ---
Author Organization [facility] Address [address] [place] [address] Care Team Providers Care Embossing Press Operator Molded Goods Name Role Phone Martha Arriaga MD Primary Care Provid er Encounter Details Date Type Department Care Team (Late st Contact Info) Description 12/22/2004 Outpatient Historical [facility]ic and Wound Treatment [facility] - [facility] [address] [place] [address] [place] [address] [place] [address] Social History Tobacco Use Types Packs/Day Years Used Date Smoking Tobacco: Never Assessed Comments Unknown Sex and Gender Information Value Date Recorded Sex Assigned at Not on file Legal Sex Female 3:23 AM RADIOLOGICAL EQUIPMENT SPECIALIST Gender Identity Not on file Sexual Orientation Not on file documented as of this encounter Plan of Treatment Not on file documented as of this encounter Visit Diagnoses Not on filedocumented in this encounter Care Teams Embossing Press Operator Molded Goods Relationship Specialty Start Date End Date Martha Arriaga MD PCP - General Internal Medicine 05/10/20 documented as of this encounter
--- OUTSIDE RECORDS SUMMARY | 2024-11-19 13:46 | XMS_ITS | Encounter Summary ---
Author Organization [employer] Address [address] [place] [address] Care Team Providers Care Actuarial Director Name Role Phone Martha Arriaga MD Primary Care Provid er Encounter Details Date Type Department Care Team (Late st Contact Info) Description 08/27/2006 Outpatient Historical [facility] Luis Carlos Blackwell MD [address] [place], [place] [phone] Er, Authorized P NO ADDRESS ON FILE Contusion of Back (Primary Dx) Social History Tobacco Use Types Packs/Day Years Used Date Smoking Tobacco: Never Assessed Comments Unknown Sex and Gender Information Value Date Recorded Sex Assigned at Not on file Legal Sex Female 3:23 AM MATERIAL ATTENDANT Gender Identity Not on file Sexual Orientation Not on file documented as of this encounter Plan of Treatment Not on file documented as of this encounter Visit Diagnoses Diagnosis Contusion of back(922.31)- Primary Contusion of back documented in this encounter Care Teams Actuarial Director Relationship Specialty Start Date End Date Martha Arriaga MD PCP - General Internal Medicine 05/10/20 documented as of this encounter
--- OUTSIDE RECORDS SUMMARY | 2024-11-19 13:46 | XMS_ITS | Encounter Summary ---
Author Organization [employer] Address [address] [place] [address] Care Team Providers Care Credit Coordinator Name Role Phone Martha Arriaga MD [...] on file Legal Sex Female 3:23 AM LAPIDARIST Gender Identity Not on file Sexual Orientation Not on file documented as of this encounter Plan of Treatment Not on file documented as of this encounter Visit Diagnoses Diagnosis Effusion of lower leg joint- Primary documented in this encounter Care Teams Credit Coordinator Relationship Specialty Start Date End Date Martha Arriaga MD PCP - General Internal Medicine 05/10/20 documented as of this encounter
--- OUTSIDE RECORDS SUMMARY | 2024-11-19 13:46 | XMS_ITS | Encounter Summary ---
Author Organization [facility] Address [address] [place] [address] Care Team Providers Care Vacuum Caster Name Role Phone Martha Arriaga MD Primary Care Provid er Encounter Details Date Type Department Care Team (Late st Contact Info) Description 04/26/2005 Outpatient Historical [facility] W[facility] - [facility] [address] [place] [phone] [place] [address] [place] [phone] Social History Tobacco Use Types Packs/Day Years Used Date Smoking Tobacco: Never Assessed Comments Unknown Sex and Gender Information Value Date Recorded Sex Assigned at Not on file Legal Sex Female 3:23 AM STATISTICAL PROGRAMMER Gender Identity Not on file Sexual Orientation Not on file documented as of this encounter Plan of Treatment Not on file documented as of this encounter Visit Diagnoses Not on filedocumented in this encounter Care Teams Vacuum Caster Relationship Specialty Start Date End Date Martha Arriaga MD PCP - General Internal Medicine 05/10/20 documented as of this encounter
--- OUTSIDE RECORDS SUMMARY | 2024-11-19 13:46 | XMS_ITS | Clinical Summary ---
Author Organization [employer] [facility] Address [address] [facility] [place] [address] Phone Care Team Providers Care Hoeing Row Boss Name Role Phone Martha Arriaga MD Primary [...] file Legal Sex Female 3:23 AM EXTERNAL GRINDER TENDER Gender Identity Not on file Sexual Orientation [...] VACCINES (1 - Tdap) 1973 PNEUMOCOCCAL VACCINE 50+ YEA RS (1 of 2 - PCV) 1973 COLORECTAL SCREENING 1999 Colorectal Cancer Screening 1999 FIT-DNA Q 3 years 1999 FIT/FOBT Q 1 year 1999 Flex Sig/CT Colonography Q 5 years 1999 ZOSTER VACCINE (1 of 2) 2004 RSV VACCINE (60+ or ) (1 - Risk 60-74 years 1-dose series) 2014 OSTEOPOROSIS SCREENING 2019 BREAST CANCER SCREENING 05/10/2021 05/10/20 20, 05/17/2017, 04/07/2012 INFLUENZA VACCINE (#1) 2024 Procedures Procedure Name [...] 10:49 AM HISTORY: Routine screening. DICTATION LOCATION: [facility] TECHNIQUE: Full-field digital craniocaudal and mediolateral [...] Most Recently Relevant to Health Maintenance Insurance [facility] [id number] [facility] Address: [place] [address] Care Teams Hoeing Row Boss Relationship Specialty Start Date End Date Martha Arriaga MD PCP - General Internal Medicine 05/10/20
--- OUTSIDE RECORDS SUMMARY | 2024-11-19 13:46 | XMS_ITS | Encounter Summary ---
Author Organization [facility] Address [address] [place] [address] Care Team Providers Care Life Insurance Underwriter Name Role Phone Martha Arriaga MD Primary Care Provid er Encounter Details Date Type Department Care Team (Latest Contact Info) Description 09/03/[address] 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
--- OUTSIDE RECORDS SUMMARY | 2024-11-19 13:46 | XMS_ITS | Encounter Summary ---
Author Organization [facility] Address [address] [place] [address] Care Team Providers Care Clinic Assistant Name Role Phone Martha Arriaga MD Primary Care Provid er Encounter Details Date Type Department Care Team (Latest Contact Info) Description 07/25/2004 Outpatient Historical [facility] Hyperbaric and Wound Treatment Center - [facility] [address] [place] [address] Luis Carlos Saldaña OPEN WOUND KNEE/LEG-COMPL (Primary Dx) Social History Tobacco Use Types Packs/Day Years Used Date Smoking Tobacco: Never Assessed Comments Unknown Sex and Gender Information Value Date Recorded Sex Assigned at Not on file Legal Sex Female 3:23 AM ROUTE CLERK Gender Identity Not on file Sexual Orientation Not on file documented as of this encounter Plan of Treatment Not on file documented as of this encounter Visit Diagnoses Diagnosis Open wound of knee, leg (except thigh), and ankle, complicated- Primary documented in this encounter Care Teams Clinic Assistant Relationship Specialty Start Date End Date Martha Arriaga MD PCP - General Internal Medicine 05/10/20 documented as of this encounter
--- OUTSIDE RECORDS SUMMARY | 2024-11-19 13:46 | XMS_ITS | Encounter Summary ---
Author Organization [facility] Address [address] [place] [address] Care Team Providers Care Retort Furnace Helper Name Role Phone Martha Arriaga MD Primary Care Provid er Encounter Details Date Type Department Care Team (Latest Contact Info) Description 12/22/2004 Outpatient Historical [facility] Hyperbaric and Wound Treatment Center - [facility] [address] [place] [address] Luis Carlos Saldaña OPEN WOUND KNEE/LEG-COMPL (Primary Dx) Social History Tobacco Use Types Packs/Day Years Used Date Smoking Tobacco: Never Assessed Comments Unknown Sex and Gender Information Value Date Recorded Sex Assigned at Not on file Legal Sex Female 3:23 AM UTILITY WORKER DRIVER Gender Identity Not on file Sexual Orientation Not on file documented as of this encounter Plan of Treatment Not on file documented as of this encounter Visit Diagnoses Diagnosis Open wound of knee, leg (except thigh), and ankle, complicated- Primary documented in this encounter Care Teams Retort Furnace Helper Relationship Specialty Start Date End Date Martha Arriaga MD PCP - General Internal Medicine 05/10/20 documented as of this encounter
--- OUTSIDE RECORDS SUMMARY | 2024-11-19 13:46 | XMS_ITS | Encounter Summary ---
Author Organization [facility] Address [address] [place] [address] Care Team Providers Care Supervisor Airplane Flight Attendant Name Role Phone Martha Arriaga MD Primary Care Provid er Encounter Details Date Type Department Care Team (Late st Contact Info) Description 10/27/2002 Outpatient Historical [facility] Internal Medicine - [place] [address] [place] [address] [place]awn Saldaña [place] [address] [place] [address] Social History Tobacco Use Types Packs/Day Years Used Date Smoking Tobacco: Never Assessed Comments Unknown Sex and Gender Information Value Date Recorded Sex Assigned at Not on file Legal Sex Female 3:23 AM FORENSICS ANALYST Gender Identity Not on file Sexual Orientation Not on file documented as of this encounter Plan of Treatment Not on file documented as of this encounter Visit Diagnoses Not on filedocumented in this encounter Care Teams Supervisor Airplane Flight Attendant Relationship Specialty Start Date End Date Martha Arriaga MD PCP - General Internal Medicine 05/10/20 documented as of this encounter
--- OUTSIDE RECORDS SUMMARY | 2024-11-19 13:46 | XMS_ITS | Encounter Summary ---
Author Organization [facility] Address [address] [facility] Attn: Epic Prelude ADT [place] [address] Care Team Providers Care Upsetter Name Role Phone Martha Arriaga MD Primary Care Provid er Encounter Details Date Type Department Care Team (Late st Contact Info) Description 09/30/2002 Outpatient Historical Social History Tobacco Use Types Packs/Day Years Used Date Smoking Tobacco: Never Assessed Comments Unknown Sex and Gender Information Value Date Recorded Sex Assigned at Not on file Legal Sex Female 3:23 AM HEARING SPECIALIST Gender Identity Not on file Sexual Orientation Not on file documented as of this encounter Plan of Treatment Not on file documented as of this encounter Visit Diagnoses Not on filedocumented in this encounter Care Teams Upsetter Relationship Specialty Start Date End Date Martha Arriaga MD PCP - General Internal Medicine 05/10/20 documented as of this encounter
--- OUTSIDE RECORDS SUMMARY | 2024-11-19 13:46 | XMS_ITS ---
Author Organization [facility] Address [address] [place] [address] Phone Care Team Providers Care Toter Name Role Phone Noé Lew MD Primary Care Provider [phone] [facility] Service Episode Status:Identified (Enrolling) Start date:11/12/2024 Related program episode:[facility] (Active) Continued Care and Services Coordination
--- OUTSIDE RECORDS SUMMARY | 2024-11-19 13:46 | XMS_ITS | Encounter Summary ---
Author Organization [facility] Address [address] [place] [address] Care Team Providers Care Cpas Name Role Phone Martha Arriaga MD Primary Care Provid er Encounter Details Date Type Department Care Team (Late st Contact Info) Description 09/01/2001 Outpatient Historical [facility] Internal Medicine Medical [place] [facility] [address] [address] Frankie Raygoza MD NO ADDRESS ON FILE Social History Tobacco Use Types Packs/Day Years Used Date Smoking Tobacco: Never Assessed Comments Unknown Sex and Gender Information Value Date Recorded Sex Assigned at Not on file Legal Sex Female 3:23 AM INSTRUCTIONAL DEVELOPER Gender Identity Not on file Sexual Orientation Not on file documented as of this encounter Plan of Treatment Not on file documented as of this encounter Visit Diagnoses Not on filedocumented in this encounter Care Teams Cpas Relationship Specialty Start Date End Date Martha Arriaga MD PCP - General Internal Medicine 05/10/20 documented as of this encounter
--- OUTSIDE RECORDS SUMMARY | 2024-11-19 13:46 | XMS_ITS ---
Author Organization [facility] Address [address] [place] [address] Phone Care Team Providers Care Inside Sales Engineer Name Role Phone Noé Lew MD Primary Care Provider [phone] [facility] Status:Enrolled (Active) Start date:11/12/2024 Enrollment date:11/12/2024 Related social drivers of health:Social Connections, Alcohol Use, Tobacco Use, Financial Resource Strain, Depression, Stress, Physical Activity, Food Insecurity, Transportation Needs, Housing Stability, Utilities Related service episodes:[facility] Service Episode (Enrolling) Continued Care and Services Coordination
--- OUTSIDE RECORDS SUMMARY | 2024-11-19 13:46 | XMS_ITS | Encounter Summary ---
Author Organization [facility] Address [address] [place] [address] Care Team Providers Care Ore Crusher Name Role Phone Martha Arriaga MD Primary Care Provid er Encounter Details Date Type Department Care Team (Late st Contact Info) Description 07/25/2004 Outpatient Historical [facility] Hyperbaric and Wound Treatment Center - [facility] [address] [place] [address] [place] [address] [place] [address] Social History Tobacco Use Types Packs/Day Years Used Date Smoking Tobacco: Never Assessed Comments Unknown Sex and Gender Information Value Date Recorded Sex Assigned at Not on file Legal Sex Female 3:23 AM SOAPSTONER Gender Identity Not on file Sexual Orientation Not on file documented as of this encounter Plan of Treatment Not on file documented as of this encounter Visit Diagnoses Not on filedocumented in this encounter Care Teams Ore Crusher Relationship Specialty Start Date End Date Martha Arriaga MD PCP - General Internal Medicine 05/10/20 documented as of this encounter
--- OUTSIDE RECORDS SUMMARY | 2024-11-19 13:46 | XMS_ITS | Encounter Summary ---
Author Organization [employer] Address [address] [place] [address] Care Team Providers Care Senior Net Software Developer Name Role Phone Martha Arriaga MD Primary Care Provid er Encounter Details Date Type Department Care Team (Latest Contact Info) Description 03/20/2001 Outpatient Historical [facility], Gerald Jensen MD [address] [place], [place] [id number] Infectious colitis, enteritis, and gastroenteritis (Primary Dx) Social History Tobacco Use Types Packs/Day Years Used Date Smoking Tobacco: Never Assessed Comments Unknown Sex and Gender Information Value Date Recorded Sex Assigned at Not on file Legal Sex Female 3:23 AM RADIO CONTROL CRANE OPERATOR Gender Identity Not on file Sexual Orientation Not on file documented as of this encounter Plan of Treatment Not on file documented as of this encounter Visit Diagnoses Diagnosis Infectious colitis, enteritis, and gastroenteritis- Primary documented in this encounter Care Teams Senior Net Software Developer Relationship Specialty Start Date End Date Martha Arriaga MD PCP - General Internal Medicine 05/10/20 documented as of this encounter
--- OUTSIDE RECORDS SUMMARY | 2024-11-19 13:47 | XMS_ITS | Clinical Summary ---
Author Organization [facility] Address [address] [place] [address] Phone Care Team Providers Care Back Wedger Name Role Phone Noé Lew MD Primary Care Provider [phone] Allergies Active Allergy Reactions Criticality Noted Date Comments Codeine Anaphylaxis High 02/18/2003 Erythromycin Rash Medium 02/18/2003 Iodine Unknown 07/03/2022 Latex Rash Medium 06/17/2009 Contact; bandaids and condoms Lavender Oil Shortness of Breath High 07/03/2022 Warfarin Rash High 09/23/2008 Medications ergocalciferol (VITAMIN D) 46786 UNIT Capsule TAKE 1 CAPSULE WEEKLY 06/25/2024 Active Active Problems Problem Noted Date Diagnosed Date Factor V Leiden 09/02/2024 Encounters Date Type Department Care Team Description 11/12/2024 Patient Outreach [facility] [address] [place] [address] Navigator, Digital Health Social Concerns 11/03/2024 Transcribe Orders [facility] Central Scheduling [address] [place] [address] Noé Lew MD Other abnormal and inconclusive findings on diagnostic imaging of breast (Primary Dx) 09/19/2024 Travel 09/09/2024 Travel 09/08/2024 Travel 09/02/2024 3:00 PM TOLL TICKET CLERK Lab [facility] Oncology Services [address] [place] [address] Pricila Cruz, PAC Factor V Leiden (HCC) Discharge Disposition: Discharged to home or Selfcare 09/02/2024 2:15 PM TOLL TICKET CLERK [facility] [address] [place] [address] Noé Lew MD Norris, Arlene June, PAC [...] on file Legal Sex Female 12:58 PM TOLL TICKET CLERK Gender Identity Not on file Sexual Orientation Not on file Last Filed Vital Signs Vital Sign Reading Time Taken Comments Blood Pressure 156/65 09/02/2024 2:48 PM TOLL TICKET CLERK Pulse 77 09/02/2024 2:48 PM TOLL TICKET CLERK Temperature 36.7 C (98.1 F) 09/02/2024 2:48 PM TOLL TICKET CLERK Respiratory Rate 18 09/02/2024 2:48 PM TOLL TICKET CLERK Oxygen Saturation 97% 09/02/2024 2:48 PM TOLL TICKET CLERK Inhaled Oxygen Concentration - - Weight 148.1 kg (326 lb 9.6 oz) 09/02/2024 2:48 PM TOLL TICKET CLERK Height 165.1 cm (5' 5 ) 09/02/2024 2:48 PM TOLL TICKET CLERK Body Mass Index 54.35 09/02/2024 2:48 PM TOLL TICKET CLERK Plan of Treatment Health Maintenance Due Date [...] series) 2014 Mammogram 05/10/2021 05/10/2020, 05/10/2020, 05/17/2017 SARS-COV-2 Immunization ( - 2023- season) 2024 Influenza Immunization (Seas on Ended) 2025 Hepatitis B Immunization Aged Out No longer [...] LUPUS ANTICOAG PROFILE Routine 09/02/2024 3:24 PM TOLL TICKET CLERK Factor V Leiden (HCC) BETA-2 GPI AB IGA, IGG, IGM Routine 09/02/2024 3:24 PM TOLL TICKET CLERK Factor V Leiden (HCC) ANTI CARDIOLIPIN IGG, IGM & IGA Routine 09/02/2024 3:24 PM TOLL TICKET CLERK Factor V Leiden (HCC) PHOSPHOLIPID PANEL (ACL,B2GP,LUPAP) Routine 09/02/2024 3:24 PM TOLL TICKET CLERK Factor V Leiden (HCC) ANTI THROMBIN III ACTIVITY Routine 09/02/2024 3:24 PM TOLL TICKET CLERK Factor V Leiden (HCC) PROTEIN S ACTIVITY Routine 09/02/2024 3: 24 PM TOLL TICKET CLERK Factor V Leiden (HCC) PROTEIN C ACTIVITY Routine 09/02/2024 3: 24 PM TOLL TICKET CLERK Factor V Leiden (HCC) from Last 3 Months Results * (ABNORMAL) LUPUS ANTICOAG PROFILE (09/02/2024 3:24 PM TOLL TICKET CLERK) INR 1.0 0.9 - 1.2 09/04/2024 10:41 AM [facility] THROMBIN TIME 19.1(H) 15.1 - 18.5 sec 09/04/2024 10:41 AM [facility] PROTIME-PATIEN T 13.1 11.6 - 14.8 sec 09/04/2024 10:41 AM [facility] APTT-LA 33.1 30.6 - 38.8 sec 09/04/2024 10:41 AM [facility] DRVV SCREEN RATIO 1.0 <=1.2 ratio 09/04/2024 10:41 AM [facility] Blood Venipuncture / Unknown 09/02/2024 3:24 PM TOLL TICKET CLERK 09/02/2024 3:24 PM TOLL TICKET CLERK Narrative [facility] - 09/04/2024 10:41 AM TOLL TICKET CLERK No evidence of lupus-like anticoagulant based on results of Lupus sensitive Activated Partial Thromboplastin Time (APTT) and Dilute Alex's Viper Venom Time (DRVVT). us Pricila Cruz PAC HEMATOLOGY ORDERABLES Fin al Result Performing Organization Address City/State/[facility] Co de Phone Number [facility] [address] [place] [address], * BETA-2 GPI AB IGA, IGG, IGM (09/02/2024 3:24 PM TOLL TICKET CLERK) [facility] BETA-2 GLYCOPROTEIN IGA <2.0 <20.0 APL-U/mL 09/02/2024 10:13 PM TOLL TICKET CLERK [facility] BETA-2 GLYCOPROTEIN IGG <1.4 <20.0 GPL-U/mL 09/02/2024 10:13 PM [facility] BETA-2 GLYCOPROTEIN IGM 1.8 <20.0 MPL-U/mL 09/02/2024 10:13 PM [facility] Blood Venipuncture / Unknown 09/02/2024 3:24 PM TOLL TICKET CLERK 09/02/2024 3:24 PM TOLL TICKET CLERK Narrative [facility] - 09/02/2024 10:13 PM TOLL TICKET CLERK Antibody testing was performed by multiplex flow immunoassay on the BioPlex platform. [facility] IMMUNOLOGY ORDERABLES Fin al Result Performing Organization Address City/[facility]/ZIP Co de Phone Number [facility] [address] [place] [address], [place] * ANTI CARDIOLIPIN IGG, IGM & IGA (09/02/2024 3:24 PM TOLL TICKET CLERK) CARDIOLIPIN IGA <2.0 <20.0 APL-U/mL 09/02/2024 10:13 PM TOLL TICKET CLERK [facility] CARDIOLIPIN IGG <1.6 <20.0 GPL-U/mL 09/02/2024 10:13 PM TOLL TICKET CLERK [facility] CARDIOLIPIN IGM 2.3 <20.0 MPL-U/mL 09/02/2024 10:13 PM TOLL TICKET CLERK [facility] Blood Venipuncture / Unknown 09/02/2024 3:24 PM TOLL TICKET CLERK 09/02/2024 3:24 PM TOLL TICKET CLERK Narrative [facility] - 09/02/2024 10:13 PM TOLL TICKET CLERK Antibody testing was performed by multiplex flow immunoassay on the BioPlex platform. [facility] IMMUNOLOGY ORDERABLES Fin al Result Performing Organization Address [facility]/ZIP Co de Phone Number [facility] [address] [place] [address], [place] * PROTEIN S ACTIVITY (09/02/2024 3:24 PM TOLL TICKET CLERK) PROTEIN S ACTIVITY 74.0 65 - 129 % 09/04/2024 10:11 AM TOLL TICKET CLERK [facility] Blood Venipuncture / Unknown 09/02/2024 3:24 PM TOLL TICKET CLERK 09/02/2024 3:24 PM TOLL TICKET CLERK [facility] HEMATOLOGY ORDERABLES Fin al Result [facility] [address] [place] [address], [place] * PROTEIN C ACTIVITY (09/02/2024 3:24 PM TOLL TICKET CLERK) PROTEIN C ACTIVITY 126.0 79 - 175 % 09/04/2024 10:10 AM TOLL TICKET CLERK [facility] Blood Venipuncture / Unknown 09/02/2024 3:24 PM TOLL TICKET CLERK 09/02/2024 3:24 PM TOLL TICKET CLERK [facility] PAC HEMATOLOGY ORDERABLES Fin al Result [facility] [address] [place] [address], [place] * ANTI THROMBIN III ACTIVITY (09/02/2024 3:24 PM TOLL TICKET CLERK) ANTITHROMBIN III 112 82 - 139 % 09/02/19 11:54 PM TOLL TICKET CLERK [facility] Blood Venipuncture / Unknown 09/02/2024 3:24 PM TOLL TICKET CLERK 09/02/2024 3:24 PM TOLL TICKET CLERK [facility] PAC HEMATOLOGY ORDERABLES Fin al Result [facility] [address] [place] [address], [place] from Last 3 Months Insurance MEDICARE C [facility] MEDICAID [place] Care Teams Back Wedger Relationship Specialty Start Date End Date Noé Lew MD [address] [place] [address] PCP - General Internal Medicine 07/01/24
--- OUTSIDE RECORDS SUMMARY | 2024-11-19 13:47 | XMS_ITS | Encounter Summary ---
Author Organization [facility] Address [address] [place] [address] Care Team Providers Care Senior Network Administrator Name Role Phone Martha Arriaga MD Primary Care Provid er Encounter Details Date Type Department Care Team (Late st Contact Info) Description 07/03/1999 Outpatient Historical [facility] Internal Medicine Medical [place] [facility] [address] [facility] [address] [place] [id number] Cheikh Tsang MD [address] [facility] [address] [place], [place] [id number] Social History Tobacco Use Types Packs/Day Years Used Date Smoking Tobacco: Never Assessed Comments Unknown Sex and Gender Information Value Date Recorded Sex Assigned at Not on file Legal Sex Female 3:23 AM GYMNASTICS COACH OR INSTRUCTOR Gender Identity Not on file Sexual Orientation Not on file documented as of this encounter Plan of Treatment Not on file documented as of this encounter Visit Diagnoses Not on filedocumented in this encounter Care Teams Senior Network Administrator Relationship Specialty Start Date End Date Martha Arriaga MD PCP - General Internal Medicine 05/10/20 documented as of this encounter
--- OUTSIDE RECORDS SUMMARY | 2024-11-19 13:47 | XMS_ITS | Encounter Summary ---
Author Organization [facility] Address [address] [place] [address] Care Team Providers Care Supervising Deputy Name Role Phone Martah Arriaga MD Primary Care Provid er Encounter Details Date Type Department Care Team (Latest Contact Info) Description 07/11/2004 Outpatient Historical [facility] [address] [place] [address] Luis Carlos Saldaña OPEN WOUND KNEE/LEG-COMPL (Primary Dx) Social History Tobacco Use Types Packs/Day Years Used Date Smoking Tobacco: Never Assessed Comments Unknown Sex and Gender Information Value Date Recorded Sex Assigned at Not on file Legal Sex Female 3:23 AM CARD RUNNER Gender Identity Not on file Sexual Orientation Not on file documented as of this encounter Plan of Treatment Not on file documented as of this encounter Visit Diagnoses Diagnosis Open wound of knee, leg (except thigh), and ankle, complicated- Primary documented in this encounter Care Teams Supervising Deputy Relationship Specialty Start Date End Date Martha Arriaga MD PCP - General Internal Medicine 05/10/20 documented as of this encounter
--- OUTSIDE RECORDS SUMMARY | 2024-11-19 13:47 | XMS_ITS | Encounter Summary ---
Author Organization [facility] Address [address] [place] [address] Care Team Providers Care Installment Loan Collector Name Role Phone Martha Arriaga MD Primary Care Provid er Encounter Details Date Type Department Care Team (Late st Contact Info) Description 06/17/2004 Outpatient Historical [facility] Trauma and General Surgery [address] [facility] [address] [address] [place] [address] [place] [address] Social History Tobacco Use Types Packs/Day Years Used Date Smoking Tobacco: Never Assessed Comments Unknown Sex and Gender Information Value Date Recorded Sex Assigned at Not on file Legal Sex Female 3:23 AM SPECIAL CERTIFICATE DICTATOR Gender Identity Not on file Sexual Orientation Not on file documented as of this encounter Plan of Treatment Not on file documented as of this encounter Visit Diagnoses Not on filedocumented in this encounter Care Teams Installment Loan Collector Relationship Specialty Start Date End Date Martha Arriaga MD PCP - General Internal Medicine 05/10/20 documented as of this encounter
--- OUTSIDE RECORDS SUMMARY | 2024-11-19 13:47 | XMS_ITS | Encounter Summary ---
Author Organization [facility] Address [address] [place] [address] Care Team Providers Care Emergency Medicine Medical Director Name Role Phone Martha Arriaga MD Primary Care Provid er Encounter Details Date Type Department Care Team (Late st Contact Info) Description 01/04/1999 Outpatient Historical [facility] Internal Medicine Medical [place] [facility] [address] [facility] [address] [place] [phone] Cheikh Tsang MD [address] [facility] [address] [place] [address] Social History Tobacco Use Types Packs/Day Years Used Date Smoking Tobacco: Never Assessed Comments Unknown Sex and Gender Information Value Date Recorded Sex Assigned at Not on file Legal Sex Female 3:23 AM DOCK LOADER Gender Identity Not on file Sexual Orientation Not on file documented as of this encounter Plan of Treatment Not on file documented as of this encounter Visit Diagnoses Not on filedocumented in this encounter Care Teams Emergency Medicine Medical Director Relationship Specialty Start Date End Date Martha Arriaga MD PCP - General Internal Medicine 05/10/20 documented as of this encounter
--- OUTSIDE RECORDS SUMMARY | 2024-11-19 13:47 | XMS_ITS | Encounter Summary ---
Author Organization [facility] Address [address] [place] [address] Care Team Providers Care Monkey Keeper Name Role Phone Martha Arriaga MD Primary Care Provid er Encounter Details Date Type Department Care Team (Late st Contact Info) Description 07/11/2004 Outpatient Historical [facility] - [facility] [address] [place] [address] [place] [address] [place] [address] Social History Tobacco Use Types Packs/Day Years Used Date Smoking Tobacco: Never Assessed Comments Unknown Sex and Gender Information Value Date Recorded Sex Assigned at Not on file Legal Sex Female 3:23 AM CHANGE CONTROL MANAGER Gender Identity Not on file Sexual Orientation Not on file documented as of this encounter Plan of Treatment Not on file documented as of this encounter Visit Diagnoses Not on filedocumented in this encounter Care Teams Monkey Keeper Relationship Specialty Start Date End Date Martha Arriaga MD PCP - General Internal Medicine 05/10/20 documented as of this encounter
--- OUTSIDE RECORDS SUMMARY | 2024-11-19 13:47 | XMS_ITS | Encounter Summary ---
Author Organization [facility] Address [address] [place] [address] Care Team Providers Care Business Account Specialist Name Role Phone Martha Arriaga MD Primary Care Provid er Encounter Details Date Type Department Care Team (Late st Contact Info) Description 06/27/2004 Outpatient Historical [facility] - [facility] [address] [place] [address] [place] [address] [place] [address] Social History Tobacco Use Types Packs/Day Years Used Date Smoking Tobacco: Never Assessed Comments Unknown Sex and Gender Information Value Date Recorded Sex Assigned at Not on file Legal Sex Female 3:23 AM CONVEYOR FEEDER Gender Identity Not on file Sexual Orientation Not on file documented as of this encounter Plan of Treatment Not on file documented as of this encounter Visit Diagnoses Not on filedocumented in this encounter Care Teams Business Account Specialist Relationship Specialty Start Date End Date Martha Arriaga MD PCP - General Internal Medicine 05/10/20 documented as of this encounter
--- OUTSIDE RECORDS SUMMARY | 2024-11-19 13:47 | XMS_ITS | Encounter Summary ---
Author Organization [employer] [facility] Address [address] [place] [address] Care Team Providers Care Vp Name Role Phone Martha Arriaga MD Primary Care Provid er Encounter Details Date Type Department Care Team (Latest Contact Info) Description 07/12/2003 Outpatient Historical [facility] CAPRICE Saldaña, Luis Carlos SIMMONS W MANIF NEC ADULT [facility] (Primary Dx) Social History Tobacco Use Types Packs/Day Years Used Date Smoking Tobacco: Never Assessed Comments Unknown Sex and Gender Information Value Date Recorded Sex Assigned at Not on file Legal Sex Female 3:23 AM BUYING AGENT Gender Identity Not on file Sexual Orientation Not on file documented as of this encounter Plan of Treatment Not on file documented as of this encounter Visit Diagnoses Diagnosis 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
--- OUTSIDE RECORDS SUMMARY | 2024-11-19 13:47 | XMS_ITS | Encounter Summary ---
Author Organization [employer] Address [address] [place] [address] Care Team Providers Care Auxiliary Plant Operator Name Role Phone Martha Arriaga MD Primary Care Provid er Encounter Details Date Type Department Care Team (Latest Contact Info) Description 06/16/2004 Inpatient Historical [facility] PATIENT IN A BED Khris Simeon MD [address] [place] [address] OTHER POSTOP INFECTION (Primary Dx) Social History Tobacco Use Types Packs/Day Years Used Date Smoking Tobacco: Never Assessed Comments Unknown Sex and Gender Information Value Date Recorded Sex Assigned at Not on file Legal Sex Female 3:23 AM CHEMICAL CHECKER Gender Identity Not on file Sexual Orientation Not on file documented as of this encounter Plan of Treatment Not on file documented as of this encounter Visit Diagnoses Diagnosis Other postoperative infection- Primary documented in this encounter Care Teams Auxiliary Plant Operator Relationship Specialty Start Date End Date Martha Arriaga MD PCP - General Internal Medicine 05/10/20 documented as of this encounter
--- OUTSIDE RECORDS SUMMARY | 2024-11-19 13:47 | XMS_ITS | Encounter Summary ---
Author Organization [employer] Address [address] [place] [address] Care Team Providers Care Social Work Nurse Name Role Phone Martha Arriaga MD Primary Care Provid er Encounter Details Date Type Department Care Team (Latest Contact Info) Description 11/02/2002 Outpatient Historical [facility] CAPRICE Saldaña, Luis Carlos BLOOD DISEASES NEC (Primary Dx) Social History Tobacco Use Types Packs/Day Years Used Date Smoking Tobacco: Never Assessed Comments Unknown Sex and Gender Information Value Date Recorded Sex Assigned at Not on file Legal Sex Female 3:23 AM MAINTENANCE MECHANIC SUPERVISOR Gender Identity Not on file Sexual Orientation Not on file documented as of this encounter Plan of Treatment Not on file documented as of this encounter Visit Diagnoses Diagnosis Other blood disease- Primary Other specified diseases of blood and blood-forming organs documented in this encounter Care Teams Social Work Nurse Relationship Specialty Start Date End Date Martha Arriaga MD PCP - General Internal Medicine 05/10/20 documented as of this encounter
--- OUTSIDE RECORDS SUMMARY | 2024-11-19 13:47 | XMS_ITS | Encounter Summary ---
Author Organization [employer] Address [address] [place] [address] Care Team Providers Care Business Owner/Engineer Name Role Phone Martha Arriaga MD Primary Care Provid er Encounter Details Date Type Department Care Team (Latest Contact Info) Description 01/06/1999 Outpatient Historical [facility] CARDIOPULMONARY Cheikh Tsang MD [facility] [address] [place] [address] Pain in limb (Primary Dx) Social History Tobacco Use Types Packs/Day Years Used Date Smoking Tobacco: Never Assessed Comments Unknown Sex and Gender Information Value Date Recorded Sex Assigned at Not on file Legal Sex Female 3:23 AM KISS SETTER HAND Gender Identity Not on file Sexual Orientation Not on file documented as of this encounter Plan of Treatment Not on file documented as of this encounter Visit Diagnoses Diagnosis Pain in limb- Primary documented in this encounter Care Teams Business Owner/Engineer Relationship Specialty Start Date End Date Martha Arriaga MD PCP - General Internal Medicine 05/10/20 documented as of this encounter
--- OUTSIDE RECORDS SUMMARY | 2024-11-19 13:47 | XMS_ITS | Encounter Summary ---
Author Organization [employer] Address [address] [place] [address] Care Team Providers Care Microchip Specialist Name Role Phone Martha Arriaga MD [...] file Legal Sex Female 3:23 AM MATERIAL PLANNER Gender Identity Not on file Sexual Orientation Not on file documented as of this encounter Plan of Treatment Not on file documented as of this encounter Visit Diagnoses Diagnosis Other chronic nonalcoholic liver disease- Primary documented in this encounter Care Teams Microchip Specialist Relationship Specialty Start Date End Date Martha Arriaga MD PCP - General Internal Medicine 05/10/20 documented as of this encounter
--- OUTSIDE RECORDS SUMMARY | 2024-11-19 13:47 | XMS_ITS | Encounter Summary ---
Author Organization [facility] Address [address] [place] [address] Care Team Providers Care Back Facer Name Role Phone Martha Arriaga MD Primary Care Provid er Encounter Details Date Type Department Care Team (Latest Contact Info) Description 06/16/2004 Outpatient Historical [facility] - [facility] [address] [place] [address] Luis Carlos Saldaña OPEN WOUND KNEE/LEG-COMPL (Primary Dx) Social History Tobacco Use Types Packs/Day Years Used Date Smoking Tobacco: Never Assessed Comments Unknown Sex and Gender Information Value Date Recorded Sex Assigned at Not on file Legal Sex Female 3:23 AM AVAYA ENGINEER Gender Identity Not on file Sexual Orientation Not on file documented as of this encounter Plan of Treatment Not on file documented as of this encounter Visit Diagnoses Diagnosis Open wound of knee, leg (except thigh), and ankle, complicated- Primary documented in this encounter Care Teams Back Facer Relationship Specialty Start Date End Date Martha Arriaga MD PCP - General Internal Medicine 05/10/20 documented as of this encounter
--- OUTSIDE RECORDS SUMMARY | 2024-11-19 13:47 | XMS_ITS | Encounter Summary ---
Author Organization [employer] Address [address] [place] [address] Care Team Providers Care Elementary [employer] Art Teacher Name Role Phone Martha Arriaga MD Primary Care Provid er Encounter Details Date Type Department Care Team (Late st Contact Info) Description 05/12/2004 Outpatient Historical [facility] MRI DEPT Ramon Garcia MD [address] [address] [place] [address] CONTUSION OF KNEE (Primary Dx) Social History Tobacco Use Types Packs/Day Years Used Date Smoking Tobacco: Never Assessed Comments Unknown Sex and Gender Information Value Date Recorded Sex Assigned at Not on file Legal Sex Female 3:23 AM SALES SERVICE ROUTE MANAGER Gender Identity Not on file Sexual Orientation Not on file documented as of this encounter Plan of Treatment Not on file documented as of this encounter Visit Diagnoses Diagnosis Contusion of knee- Primary documented in this encounter Care Teams [employer] Art Teacher Relationship Specialty Start Date End Date Martha Arriaga MD PCP - General Internal Medicine 05/10/20 documented as of this encounter
--- OUTSIDE RECORDS SUMMARY | 2024-11-19 13:47 | XMS_ITS | Encounter Summary ---
Author Organization [employer] Address [address] [place] [address] Care Team Providers Care Finger Grip Machine Operator Name Role Phone Martha Arriaga MD Primary Care Provid er Encounter Details Date Type Department Care Team (Latest Contact Info) Description 05/04/1999 Outpatient Historical [facility]NON-PATIENT Baldev Tolbert MD [address] [facility] [address] [place] [phone] Screening for malignant neoplasm of the cervix (Primary Dx) Social History Tobacco Use Types Packs/Day Years Used Date Smoking Tobacco: Never Assessed Comments Unknown Sex and Gender Information Value Date Recorded Sex Assigned at Not on file Legal Sex Female 3:23 AM COMMUNITY SERVICE DIRECTOR Gender Identity Not on file Sexual Orientation Not on file documented as of this encounter Plan of Treatment Not on file documented as of this encounter Visit Diagnoses Diagnosis Screening for malignant neoplasm of the cervix- Primary documented in this encounter Care Teams Finger Grip Machine Operator Relationship Specialty Start Date End Date Martha Arriaga MD PCP - General Internal Medicine 05/10/20 documented as of this encounter
--- OUTSIDE RECORDS SUMMARY | 2024-11-19 13:47 | XMS_ITS | Encounter Summary ---
Author Organization [facility] Address [address] [place] [address] Care Team Providers Care Furnace Attendant Name Role Phone Martha Arriaga MD Primary Care Provid er Encounter Details Date Type Department Care Team (Late st Contact Info) Description 06/16/2004 Outpatient Historical [facility] - [facility] [address] [place] [address] Khris Simeon MD [address] [place] [address] Social History Tobacco Use Types Packs/Day Years Used Date Smoking Tobacco: Never Assessed Comments Unknown Sex and Gender Information Value Date Recorded Sex Assigned at Not on file Legal Sex Female 3:23 AM SECURITIES LENDING TRADER Gender Identity Not on file Sexual Orientation Not on file documented as of this encounter Plan of Treatment Not on file documented as of this encounter Visit Diagnoses Not on filedocumented in this encounter Care Teams Furnace Attendant Relationship Specialty Start Date End Date Martha Arriaga MD PCP - General Internal Medicine 05/10/20 documented as of this encounter
--- OUTSIDE RECORDS SUMMARY | 2024-11-19 13:47 | XMS_ITS | Encounter Summary ---
Author Organization [facility] Address [address] [place] [address] Care Team Providers Care Web Applications Architect Name Role Phone Martha Arriaga MD Primary Care Provid er Encounter Details Date Type Department Care Team (Latest Contact Info) Description 06/27/2004 Outpatient Historical [facility] - [facility] [address] [place] [address] Luis Carlos Saldaña OPEN WOUND KNEE/LEG-COMPL (Primary Dx) Social History Tobacco Use Types Packs/Day Years Used Date Smoking Tobacco: Never Assessed Comments Unknown Sex and Gender Information Value Date Recorded Sex Assigned at Not on file Legal Sex Female 3:23 AM LINER REPLACER Gender Identity Not on file Sexual Orientation Not on file documented as of this encounter Plan of Treatment Not on file documented as of this encounter Visit Diagnoses Diagnosis Open wound of knee, leg (except thigh), and ankle, complicated- Primary documented in this encounter Care Teams Web Applications Architect Relationship Specialty Start Date End Date Martha Arriaga MD PCP - General Internal Medicine 05/10/20 documented as of this encounter
--- OUTSIDE RECORDS SUMMARY | 2024-11-19 13:47 | XMS_ITS | Encounter Summary ---
Author Organization [facility] Address [address] [place] [address] Care Team Providers Care Retail Team Member Name Role Phone Martha Arriaga MD Primary Care Provid er Encounter Details Date Type Department Care Team (Latest Contact Info) Description 06/19/2004 Outpatient Historical [facility] and W[facility] Treatment [facility] - [facility] [address] [place] [address] Luis Carlos Saldaña OPEN WOUND KNEE/LEG-COMPL (Primary Dx) Social History Tobacco Use Types Packs/Day Years Used Date Smoking Tobacco: Never Assessed Comments Unknown Sex and Gender Information Value Date Recorded Sex Assigned at Not on file Legal Sex Female 3:23 AM UMBRELLA TIPPER Gender Identity Not on file Sexual Orientation Not on file documented as of this encounter Plan of Treatment Not on file documented as of this encounter Visit Diagnoses Diagnosis Open wound of knee, leg (except thigh), and ankle, complicated- Primary documented in this encounter Care Teams Retail Team Member Relationship Specialty Start Date End Date Martha Arriaga MD PCP - General Internal Medicine 05/10/20 documented as of this encounter
--- OUTSIDE RECORDS SUMMARY | 2024-11-19 13:47 | XMS_ITS | Encounter Summary ---
Author Organization [facility] Address [address] [place] [address] Care Team Providers Care Contact Officer Name Role Phone Martha Arriaga MD Primary Care Provid er Encounter Details Date Type Department Care Team (Latest Contact Info) Description 11/30/2002 Outpatient Historical [facility] CAPRICE Ferreira, John Wall MD NO ADDRESS ON FILE COAGULAT DEFECT NEC/NOS (Primary Dx) Social History Tobacco Use Types Packs/Day Years Used Date Smoking Tobacco: Never Assessed Comments Unknown Sex and Gender Information Value Date Recorded Sex Assigned at Not on file Legal Sex Female 3:23 AM GUARD CHIEF Gender Identity Not on file Sexual Orientation Not on file documented as of this encounter Plan of Treatment Not on file documented as of this encounter Visit Diagnoses Diagnosis Other and unspecified coagulation defects- Primary documented in this encounter Care Teams Contact Officer Relationship Specialty Start Date End Date Martha Arriaga MD PCP - General Internal Medicine 05/10/20 documented as of this encounter
--- OUTSIDE RECORDS SUMMARY | 2024-11-19 13:47 | XMS_ITS | Encounter Summary ---
Author Organization [facility] Address [address] [place] [address] Care Team Providers Care Aircraft Communicator Name Role Phone Martha Arriaga MD Primary Care Provid er Encounter Details Date Type Department Care Team (Late st Contact Info) Description 03/20/2001 Outpatient Historical [facility] Internal Medicine Medical [place] [facility] [address] [facility] [address] [place] [phone] Cheikh Tsang MD [address] [facility] [address] [place], [place] [id number] Social History Tobacco Use Types Packs/Day Years Used Date Smoking Tobacco: Never Assessed Comments Unknown Sex and Gender Information Value Date Recorded Sex Assigned at Not on file Legal Sex Female 3:23 AM HOG COOLER Gender Identity Not on file Sexual Orientation Not on file documented as of this encounter Plan of Treatment Not on file documented as of this encounter Visit Diagnoses Not on filedocumented in this encounter Care Teams Aircraft Communicator Relationship Specialty Start Date End Date Martha Arriaga MD PCP - General Internal Medicine 05/10/20 documented as of this encounter
--- OUTSIDE RECORDS SUMMARY | 2024-11-19 13:47 | XMS_ITS | Encounter Summary ---
Author Organization [facility] Address [address] [place] [address] Care Team Providers Care Textile Worker Name Role Phone Martha Arriaga MD Primary Care Provid er Encounter Details Date Type Department Care Team (Latest Contact Info) Description 06/09/2004 Outpatient Historical [facility] - [facility] [address] [place] [address] Luis Carlos Saldaña OPEN WOUND KNEE/LEG-COMPL (Primary Dx) Social History Tobacco Use Types Packs/Day Years Used Date Smoking Tobacco: Never Assessed Comments Unknown Sex and Gender Information Value Date Recorded Sex Assigned at Not on file Legal Sex Female 3:23 AM DIVISION CONTROLLER Gender Identity Not on file Sexual Orientation Not on file documented as of this encounter Plan of Treatment Not on file documented as of this encounter Visit Diagnoses Diagnosis Open wound of knee, leg (except thigh), and ankle, complicated- Primary documented in this encounter Care Teams Textile Worker Relationship Specialty Start Date End Date Martha Arriaga MD PCP - General Internal Medicine 05/10/20 documented as of this encounter
--- OUTSIDE RECORDS SUMMARY | 2024-11-19 13:47 | XMS_ITS | Encounter Summary ---
Author Organization [facility] Address [address] [place] [address] Care Team Providers Care Bingo Worker Name Role Phone Martha Arriaga MD Primary Care Provid er Encounter Details Date Type Department Care Team (Late st Contact Info) Description 11/03/2003 Outpatient Historical [facility] Internal Medicine - [place] [address] [place] [address] [place]awn Sal[place]ña [place] [address] [place] [address] Social History Tobacco Use Types Packs/Day Years Used Date Smoking Tobacco: Never Assessed Comments Unknown Sex and Gender Information Value Date Recorded Sex Assigned at Not on file Legal Sex Female 3:23 AM MEAL ROOM HAND Gender Identity Not on file Sexual Orientation Not on file documented as of this encounter Last Filed Vital Signs Vital Sign Reading Time Taken Comments Blood Pressure 120/78 11/03/2003 9:15 AM MEAL ROOM HAND Pulse 66 11/03/2003 9:15 AM MEAL ROOM HAND Temperature - - Respiratory Rate - - Oxygen Saturation - - Inhaled Oxygen Concentration - - Weight 114.8 kg (253 lb) 11/03/2003 9:15 AM MEAL ROOM HAND Height - - Body Mass Index - - documented in this encounter Plan of Treatment Not on file documented as of this encounter Visit Diagnoses Not on filedocumented in this encounter Care Teams Bingo Worker Relationship Specialty Start Date End Date Martha Arriaga MD PCP - General Internal Medicine 05/10/20 documented as of this encounter
--- OUTSIDE RECORDS SUMMARY | 2024-11-19 13:47 | XMS_ITS | Encounter Summary ---
Author Organization [facility] Address [address] [place] [address] Care Team Providers Care Lien Searcher Name Role Phone Martha Arriaga MD Primary Care Provid er Encounter Details Date Type Department Care Team (Late st Contact Info) Description 09/20/1998 Outpatient Historical [facility] Internal Medicine Medical [place] [facility] [address] [facility] [address] [place] [address] Cheikh Tsang MD [address] 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
--- OUTSIDE RECORDS SUMMARY | 2024-11-19 13:47 | XMS_ITS | Encounter Summary ---
Author Organization [facility] Address [address] [place] [address] Care Team Providers Care Veneer Stock Layer Name Role Phone Marhta Arriaga MD Primary Care Provid er Encounter Details Date Type Department Care Team (Late st Contact Info) Description 05/15/2004 Outpatient Historical [facility] Internal Medicine - [place] [address] [place] [address] [place]awn Saldaña [place] [address] [place] [address] Social History Tobacco Use Types Packs/Day Years Used Date Smoking Tobacco: Never Assessed Comments Unknown Sex and Gender Information Value Date Recorded Sex Assigned at Not on file Legal Sex Female 3:23 AM BROACH SETTER Gender Identity Not on file Sexual Orientation [...] on filedocumented in this encounter Care Teams Veneer Stock Layer Relationship Specialty Start Date End Date Martha Arriaga MD PCP - General Internal Medicine 05/10/20 documented as of this encounter
--- OUTSIDE RECORDS SUMMARY | 2024-11-19 13:47 | XMS_ITS | Encounter Summary ---
Author Organization [employer] Address [address] [place] [address] Care Team Providers Care Supervisor Tumblers Name Role Phone Martha Arriaga MD Primary Care Provid er Encounter Details Date Type Department Care Team (Late st Contact Info) Description 05/08/2004 Outpatient Historical [facility] Bernard Mcmillan MD [address] [place] [phone] [place], Authorized P NO ADDRESS ON FILE SPRAIN OF NECK (Primary Dx) Social History Tobacco Use Types Packs/Day Years Used Date Smoking Tobacco: Never Assessed Comments Unknown Sex and Gender Information Value Date Recorded Sex Assigned at Not on file Legal Sex Female 3:23 AM RABBIT DRESSER Gender Identity Not on file Sexual Orientation Not on file documented as of this encounter Plan of Treatment Not on file documented as of this encounter Visit Diagnoses Diagnosis Sprain of neck- Primary documented in this encounter Care Teams Supervisor Tumblers Relationship Specialty Start Date End Date Martha Arriaga MD PCP - General Internal Medicine 05/10/20 documented as of this encounter
--- OUTSIDE RECORDS SUMMARY | 2024-11-19 13:47 | XMS_ITS | Encounter Summary ---
Author Organization [facility] Address 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
--- OUTSIDE RECORDS SUMMARY | 2024-11-19 13:47 | XMS_ITS | Encounter Summary ---
Author Organization [employer] Address [address] [place] [address] Care Team Providers Care Telephone Plant Power Operator Name Role Phone Martha Arriaga MD Primary Care Provid er Encounter Details Date Type Department Care Team (Late st Contact Info) Description 06/16/2004 Outpatient Historical [facility] Support [facility]. ([facility]) [address] [place] [address] Luis Berkowitz MD NO ADDRESS ON FILE Social History Tobacco Use Types Packs/Day Years Used Date Smoking Tobacco: Never Assessed Comments Unknown Sex and Gender Information Value Date Recorded Sex Assigned at Not on file Legal Sex Female 3:23 AM TECHNOLOGY ADMINISTRATOR Gender Identity Not on file Sexual Orientation Not on file documented as of this encounter Plan of Treatment Not on file documented as of this encounter Visit Diagnoses Not on filedocumented in this encounter Care Teams Telephone Plant Power Operator Relationship Specialty Start Date End Date Martha Arriaga MD PCP - General Internal Medicine 05/10/20 documented as of this encounter
--- OUTSIDE RECORDS SUMMARY | 2024-11-19 13:47 | XMS_ITS | Encounter Summary ---
Author Organization [employer] Address [address] [place] [address] Care Team Providers Care Bench Lay Out Technician Name Role Phone Martha Arriaga MD [...] on file Legal Sex Female 3:23 AM FINE UNHAIRER Gender Identity Not on file Sexual Orientation Not on file documented as of this encounter Plan of Treatment Not on file documented as of this encounter Visit Diagnoses Diagnosis Contusion of unspecified part of trunk- Primary documented in this encounter Care Teams Bench Lay Out Technician Relationship Specialty Start Date End Date Martha Arriaga MD PCP - General Internal Medicine 05/10/20 documented as of this encounter
--- OUTSIDE RECORDS SUMMARY | 2024-11-19 13:47 | XMS_ITS | Encounter Summary ---
Author Organization [facility] Address [address] [place] [address] Care Team Providers Care Inspector Of Dredging Name Role Phone Martha Arriaga MD Primary Care Provid er Encounter Details Date Type Department Care Team (Latest Contact Info) Description 01/10/1999 Outpatient Historical [facility] Cheikh Ortiz MD [facility] [address] [place] [address] Depressive disorder, not elsewhere classified (Primary Dx) Social History Tobacco Use Types Packs/Day Years Used Date Smoking Tobacco: Never Assessed Comments Unknown Sex and Gender Information Value Date Recorded Sex Assigned at Not on file Legal Sex Female 3:23 AM TECHNICAL BUYER Gender Identity Not on file Sexual Orientation Not on file documented as of this encounter Plan of Treatment Not on file documented as of this encounter Visit Diagnoses Diagnosis Depressive disorder, not elsewhere classified- Primary documented in this encounter Care Teams Inspector Of Dredging Relationship Specialty Start Date End Date Martha Arriaga MD PCP - General Internal Medicine 05/10/20 documented as of this encounter
--- OUTSIDE RECORDS SUMMARY | 2024-11-19 13:47 | XMS_ITS | Encounter Summary ---
Author Organization [facility] Address [address] [place] [address] Care Team Providers Care Bus Or Truck Garage Mechanic Name Role Phone Martha Arriaga MD Primary Care Provid er Encounter Details Date Type Department Care Team (Late st Contact Info) Description 07/12/2003 Outpatient Historical [facility] Internal Medicine - [place] [address] [place] [address] Lashawn Saldaña [place] [address] [place] [address] Social History Tobacco Use Types Packs/Day Years Used Date Smoking Tobacco: Never Assessed Comments Unknown Sex and Gender Information Value Date Recorded Sex Assigned at Not on file Legal Sex Female 3:23 AM TECHNICAL INFORMATION SPECIALIST Gender Identity Not on file Sexual Orientation Not on file documented as of this encounter Last Filed Vital Signs Vital Sign Reading Time Taken Comments Blood Pressure 118/78 07/12/2003 11:30 AM TECHNICAL INFORMATION SPECIALIST Pulse 78 07/12/2003 11:30 AM TECHNICAL INFORMATION SPECIALIST Temperature - - Respiratory Rate - - Oxygen Saturation - - Inhaled Oxygen Concentration - - Weight 120.7 kg (266 lb) 07/12/2003 11:30 AM TECHNICAL INFORMATION SPECIALIST Height - - Body Mass Index - - documented in this encounter Plan of Treatment Not on file documented as of this encounter Visit Diagnoses Not on filedocumented in this encounter Care Teams Bus Or Truck Garage Mechanic Relationship Specialty Start Date End Date Martha Arriaga MD PCP - General Internal Medicine 05/10/20 documented as of this encounter
--- OUTSIDE RECORDS SUMMARY | 2024-11-19 13:47 | XMS_ITS | Encounter Summary ---
Author Organization [facility] Address [address] [place] [address] Care Team Providers Care Maintenance Planner Name Role Phone Martha Arriaga MD Primary Care Provid er Encounter Details Date Type Department Care Team (Late st Contact Info) Description 11/01/2003 [facility] Social History Tobacco Use Types Packs/Day Years Used Date Smoking Tobacco: Never Assessed Comments Unknown Sex and Gender Information Value Date Recorded Sex Assigned at Not on file Legal Sex Female 3:23 AM MAKEUP SALES ADVISOR Gender Identity Not on file Sexual Orientation Not on file documented as of this encounter Plan of Treatment Not on file documented as of this encounter Visit Diagnoses Not on filedocumented in this encounter Care Teams Maintenance Planner Relationship Specialty Start Date End Date Martha Arriaga MD PCP - General Internal Medicine 05/10/20 documented as of this encounter
--- OUTSIDE RECORDS SUMMARY | 2024-11-19 13:47 | XMS_ITS | Encounter Summary ---
Author Organization [employer] Address [address] [place] [address] Care Team Providers Care Industrial Spraypainter Name Role Phone Martha Arriaga MD Primary [...] file Legal Sex Female 3:23 AM UTILITY SALES REPRESENTATIVE Gender Identity Not on file Sexual Orientation Not on file documented as of this encounter Plan of Treatment Not on file documented as of this encounter Visit Diagnoses Diagnosis Pain in limb- Primary documented in this encounter Care Teams Industrial Spraypainter Relationship Specialty Start Date End Date Martha Arriaga MD PCP - General Internal Medicine 05/10/20 documented as of this encounter
--- OUTSIDE RECORDS SUMMARY | 2024-11-19 13:47 | XMS_ITS | Encounter Summary ---
Author Organization [facility] Address [address] [place] [address] Care Team Providers Care Flexographic Press Operator Name Role Phone Martha Arriaga MD Primary Care Provid er Encounter Details Date Type Department Care Team (Late st Contact Info) Description 06/16/2004 Outpatient Historical [facility] Trauma and General Surgery [address] [facility] [address] [address] [place] [address] [place] [address] Social History Tobacco Use Types Packs/Day Years Used Date Smoking Tobacco: Never Assessed Comments Unknown Sex and Gender Information Value Date Recorded Sex Assigned at Not on file Legal Sex Female 3:23 AM RESIDENTIAL MONITOR Gender Identity Not on file Sexual Orientation Not on file documented as of this encounter Plan of Treatment Not on file documented as of this encounter Visit Diagnoses Not on filedocumented in this encounter Care Teams Flexographic Press Operator Relationship Specialty Start Date End Date Martha Arriaga MD PCP - General Internal Medicine 05/10/20 documented as of this encounter
--- OUTSIDE RECORDS SUMMARY | 2024-11-19 13:47 | XMS_ITS | Encounter Summary ---
Author Organization [facility] Address [address] [place] [address] Care Team Providers Care Medication Care Manager Name Role Phone Martha Arriaga MD Primary Care Provid er Encounter Details Date Type Department Care Team (Late st Contact Info) Description 06/19/2004 Outpatient Historical [facility] - [facility] [address] [place] [address] Elisa Doshi NO ADDRESS ON FILE Social History Tobacco Use Types Packs/Day Years Used Date Smoking Tobacco: Never Assessed Comments Unknown Sex and Gender Information Value Date Recorded Sex Assigned at Not on file Legal Sex Female 3:23 AM 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
--- OUTSIDE RECORDS SUMMARY | 2024-11-19 13:47 | XMS_ITS | Encounter Summary ---
Author Organization [facility] Address [address] [place] [address] Care Team Providers Care Partridge Farmer Name Role Phone Martha Arriaga MD Primary Care Provid er Encounter Details Date Type Department Care Team ([facility] st Contact Info) Description 06/07/2004 Outpatient Historical [facility] Internal Medicine - [place] [address] [place] [phone] [place]ashawn Saldaña [place] [address] [place] [phone] Social History Tobacco Use Types Packs/Day Years Used Date Smoking Tobacco: Never Assessed Comments Unknown Sex and Gender Information Value Date Recorded Sex Assigned at Not on file Legal Sex Female 3:23 AM CHANGE COORDINATOR Gender Identity Not on file Sexual [...] on filedocumented in this encounter Care Teams Partridge Farmer Relationship Specialty Start Date End Date Martha Arriaga MD PCP - General Internal Medicine 05/10/20 documented as of this encounter
--- OUTSIDE RECORDS SUMMARY | 2024-11-19 13:47 | XMS_ITS | Encounter Summary ---
Author Organization [employer] Address [address] [place] [address] Care Team Providers Care Compensation And Benefits Administrator Name Role Phone Martha Arriaga MD Primary Care Provid er Encounter Details Date Type Department Care Team (Late st Contact Info) Description 11/15/2002 Outpatient Historical [facility] Noé Lobato MD [address] [place] [address] Social History Tobacco Use Types Packs/Day Years Used Date Smoking Tobacco: Never Assessed Comments Unknown Sex and Gender Information Value Date Recorded Sex Assigned at Not on file Legal Sex Female 3:23 AM SIGN LANGUAGE INTERPRETER Gender Identity Not on file Sexual Orientation Not on file documented as of this encounter Plan of Treatment Not on file documented as of this encounter Visit Diagnoses Not on filedocumented in this encounter Care Teams Compensation And Benefits Administrator Relationship Specialty Start Date End Date Martha Arriaga MD PCP - General Internal Medicine 05/10/20 documented as of this encounter
--- OUTSIDE RECORDS SUMMARY | 2024-11-19 13:47 | XMS_ITS | Encounter Summary ---
Author Organization [employer] [facility] Address [address] [place] [address] Care Team Providers Care Set Up Technician Name Role Phone Martha Arriaga MD Primary Care Provid er Encounter Details Date Type Department Care Team (Latest Contact Info) Description 06/13/2004 Outpatient Historical [facility] [place] [address] [place] [address] HEMANGIOMA NEC (Primary Dx) Social History Tobacco Use Types Packs/Day Years Used Date Smoking Tobacco: Never Assessed Comments Unknown Sex and Gender Information Value Date Recorded Sex Assigned at Not on file Legal Sex Female 3:23 AM EXECUTIVE VP Gender Identity Not on file Sexual Orientation Not on file documented as of this encounter Plan of Treatment Not on file documented as of this encounter Visit Diagnoses Diagnosis Hemangioma of other sites- Primary documented in this encounter Care Teams Set Up Technician Relationship Specialty Start Date End Date Martha Arriaga MD PCP - General Internal Medicine 05/10/20 documented as of this encounter
--- OUTSIDE RECORDS SUMMARY | 2024-11-19 13:47 | XMS_ITS | Encounter Summary ---
Author Organization [facility] Address [address] [place] [address] Care Team Providers Care Family Consumer Science Teacher Name Role Phone Martha Arriaga MD Primary Care Provid er Encounter Details Date Type Department Care Team (Late st Contact Info) Description 06/09/2004 Outpatient Historical [facility] [address] [place] [phone] [place] [address] [place] [phone] Social History Tobacco Use Types Packs/Day Years Used Date Smoking Tobacco: Never Assessed Comments Unknown Sex and Gender Information Value Date Recorded Sex Assigned at Not on file Legal Sex Female 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
--- OUTSIDE RECORDS SUMMARY | 2024-11-19 13:47 | XMS_ITS | Encounter Summary ---
Author Organization [employer] Address [address] [place] [address] Care Team Providers Care Formula Technician Name Role Phone Martha Arriaga MD Primary Care Provid er Encounter Details Date Type Department Care Team (Latest Contact Info) Description 01/07/2000 Inpatient Historical [facility] PATIENT IN A BED [facility] Incisional hernia without mention of obstruction or gangrene (Primary Dx) Social History Tobacco Use Types Packs/Day Years Used Date Smoking Tobacco: Never Assessed Comments Unknown Sex and Gender Information Value Date Recorded Sex Assigned at Not on file Legal Sex Female 3:23 AM BLOW UP OPERATOR Gender Identity Not on file Sexual Orientation Not on file documented as of this encounter Plan of Treatment Not on file documented as of this encounter Visit Diagnoses Diagnosis Incisional hernia without mention of obstruction or gangrene- Primary documented in this encounter Care Teams Formula Technician Relationship Specialty Start Date End Date Martha Arriaga MD PCP - General Internal Medicine 05/10/20 documented as of this encounter
--- NOTE | 2024-11-19 15:56 | WPDPFTINT ---
PFT Procedure Performed PFT Procedure Performed Plethysmography (Lung Vol) Diffusing Cap (DLCO) Flow Vol Loop Spirometry w/o Bronchodil PFT Interpretation This is a pulmonary function test with spirometry, plethysmography and diffusing capacity. The test was performed and results interpreted in accordance with the 2019 and 2005 ATS/ERS Task Force guidelines respectively using the Global Lung Function Initiative-2012 reference equations. Patient demonstrated good effort and cooperation. Reproducibility criteria were met. The quality of the spirometry maneuver was Grade A. Findings: Spirometry: There is decreased maximal expiratory airflow at all lung volumes with concave expiratory flow tracing. The contour the inspiratory flow tracing is normal. The FVC is 1.96 L, 66% predicted. The FEV1 is 1.22 L, 54% predicted. The FEV1: FVC ratio 63%. Plethysmography: The total lung capacity is 4.72 L, 91% predicted. The functional residual capacity is 2.65 L, 89% predicted. The residual volume is 2.63 L, 118% predicted. The residual volume: Total lung capacity ratio is 56%. Diffusing capacity: The diffusing capacity unadjusted for hemoglobin and carboxyhemoglobin is 18.2, 87% predicted. The diffusing capacity adjusted for alveolar volume is 5.26, 124% predicted. Impression: There is a moderately severe obstructive abnormality. The increase in residual volume to total lung volume ratio is consistent with hyperinflation from an obstructive abnormality. The diffusing capacity is normal. There are no prior studies for comparison
== END 2024-11-19 13:18 | disposition home or self-care (01) ==
LOC: ANHCARD 13:19
PROVIDERS: PCP Internal Medicine; Visit Provider Internal Medicine
DX: J44.9 Chronic obstructive pulmonary disease, unspecified (principal); I07.1 Rheumatic tricuspid insufficiency
CPT/HCPCS: 93306; 94375; 94726; 94729

== ENCOUNTER 2024-12-07 10:06 | Outpatient (CLI) | payer MEDICARE, MEDICAID, SELFPAY ==
--- NOTE | ~2024-12-07 | MM_ITS ---
EXAMINATION: MM stereotactic bx LT, MM stereotactic specimen LT, MM post biopsy diagnostic LT DATE: Yohana Romero INDICATION: Indeterminate microcalcifications in the left breast. Stereotactic core biopsy is reques eduardo evaluate for malignancy.] BREAST PARENCHYMAL COMPOSITION: There are scattered areas of fibroglandular density. TECHNIQUE AND FINDINGS: The risks and potential benefits of the procedure were discussed with the patient and written informe d consent was obtained. The patient was placed in the prone position clustered at the table with the left breast in craniocaudal compression, and the area of interest was localized and targeted utilizi ng digital imaging with stereotaxis. After sterile preparation of the skin, 1% lidocaine was utilized for local anesthesia at the skin pun cture site and 1% lidocaine without epinephrine was utilized for deeper local anesthesia/is about the biopsy site. A 9G Eviva vacuum assisted biopsy needle was advanced to the level of the microcalcifi cations of interest from a cephalad approach utilizing stereotactic guidance and multiple tissue core biopsies were obtained. A specimen radiograph demonstrates that the calcifications of interest are included within the tissue cores. A coil tissue marker clip was then placed at the biopsy site. The needle was removed and he mostasis was achieved. The patient tolerated the procedure well and there is no evidence of signific ant immediate complication. The patient was given verbal as well as written postprocedural instructi ons prior to discharge from the department. Tissue cores were submitted to surgical pathology for hi stologic analysis. A 2-view right unilateral digital mammogram was obtained post procedure and this demonstrates that th e tissue marker clip is in expected position within the left breast.] IMPRESSION: 1. Technically successful stereotactic vacuum-assisted core biopsy of indeterminate microcalcificatio ns within the upper outer left breast with post procedure mammogram for marker placement. Pathology is pending. Reviewed, dictated and finalized at location A. IMPRESSION: 1. Technically successful stereotactic vacuum-assisted core biopsy of indetermi les microcalcifications within the upper outer left breast with post procedure mammogram for marker placement. Pathology is pending. IMPRESSION: 1. Technically successful stereotactic vacuum-assisted core biopsy of indetermi les microcalcifications within the upper outer left breast with post procedure mammogram for marker placement. Pathology is pending.
--- NOTE | ~2024-12-07 | US_ITS ---
EXAMINATION: US breast LT limited HISTORY: 69-year-old woman with a family history of breast cancer (diagnosed in the patient's mother) presents for diagnostic evaluation of a mammographic finding within the left breast as the patient w as initially unable to tolerate positioning for stereotactic biopsy High resolution limited left breast ultrasound was performed. COMPARISON: Reference is made to previous mammography dated 09/16/2024 as well as mammographic images p erformed the same day during attempted stereotactic biopsy. FINDINGS: ULTRASOUND: At the 1:00 position of the left breast approximately 4 cm from the nipple are 2 rounded foci of decr eased echogenicity, which may correspond to the mammographic finding, although this abnormality appea red more duct-like rather than a discrete mass. Given that the finding was visualized with mammograph y, return for stereotactic attempt was planned. Sonographic evaluation of the remainder of the left breast demonstrates benign fibroglandular element s without a cystic or solid lesion of concern. IMPRESSION: No sonographic evidence to suggest the presence of malignancy. Repeat stereotactic biopsy attempt is planned. BI-RADS Category 2: Benign finding(s). Reviewed, dictated and finalized at location A.
--- OUTSIDE RECORDS SUMMARY | 2024-12-07 11:24 | XMS_ITS | Encounter Summary ---
Author Organization [facility] Address [address] [place] [address] Care Team Providers Care Front Counter Clerk Name Role Phone Martha Arriaga MD Primary Care Provid er Encounter Details Date Type Department Care Team (Late st Contact Info) Description 04/26/2005 Outpatient Historical [facility] - [facility] [address] [place] [phone] [place] [address] [place] [phone] Social History Tobacco Use Types Packs/Day Years Used Date Smoking Tobacco: Never Assessed Comments Unknown Sex and Gender Information Value Date Recorded Sex Assigned at Not on file Legal Sex Female 3:23 AM RECREATION TECHNICIAN Gender Identity Not on file Sexual Orientation Not on file documented as of this encounter Plan of Treatment Not on file documented as of this encounter Visit Diagnoses Not on filedocumented in this encounter Care Teams Front Counter Clerk Relationship Specialty Start Date End Date Martha Arriaga MD PCP - General Internal Medicine 05/10/20 documented as of this encounter
--- OUTSIDE RECORDS SUMMARY | 2024-12-07 11:24 | XMS_ITS | Encounter Summary ---
Author Organization [facility] Address [address] [place] [address] Care Team Providers Care Business Planning Director Name Role Phone Martha Arriaga MD Primary Care Provid er Encounter Details Date Type Department Care Team (Late st Contact Info) Description 10/27/2002 Outpatient Historical [facility] Internal Medicine - [place] [address] [place] [phone] Lashawn Saldaña [place] [address] [place] [address] Social History Tobacco Use Types Packs/Day Years Used Date Smoking Tobacco: Never Assessed Comments Unknown Sex and Gender Information Value Date Recorded Sex Assigned at Not on file Legal Sex Female 3:23 AM HIGH PRESSURE OPERATOR Gender Identity Not on file Sexual Orientation Not on file documented as of this encounter Plan of Treatment Not on file documented as of this encounter Visit Diagnoses Not on filedocumented in this encounter Care Teams Business Planning Director Relationship Specialty Start Date End Date Martha Arriaga MD PCP - General Internal Medicine 05/10/20 documented as of this encounter
--- OUTSIDE RECORDS SUMMARY | 2024-12-07 11:24 | XMS_ITS | Encounter Summary ---
Author Organization [facility] Address [address] [place] [address] Care Team Providers Care Body Mechanic Apprentice Name Role Phone Martha Arriaga MD Primary Care Provid er Encounter Details Date Type Department Care Team (Late st Contact Info) Description 04/26/2005 Outpatient Historical [facility] - [facility] [address] [place] [phone] Luis Carlos Saldaña Social History Tobacco Use Types Packs/Day Years Used Date Smoking Tobacco: Never Assessed Comments Unknown Sex and Gender Information Value Date Recorded Sex Assigned at Not on file Legal Sex Female 3:23 AM ELECTRIC METER SETTER Gender Identity Not on file Sexual Orientation Not on file documented as of this encounter Plan of Treatment Not on file documented as of this encounter Visit Diagnoses Not on filedocumented in this encounter Care Teams Body Mechanic Apprentice Relationship Specialty Start Date End Date Martha Arriaga MD PCP - General Internal Medicine 05/10/20 documented as of this encounter
--- OUTSIDE RECORDS SUMMARY | 2024-12-07 11:24 | XMS_ITS | Encounter Summary ---
Author Organization [employer] Address [address] [place] [address] Care Team Providers Care Machine Erector Name Role Phone Martha Arriaga MD Primary Care Provid er Encounter Details Date Type Department Care Team (Late st Contact Info) Description 08/27/2006 Outpatient Historical [facility] Luis Carlos Blackwell MD [address] [place] [phone] [place], Authorized P NO ADDRESS ON FILE Contusion of Back (Primary Dx) Social History Tobacco Use Types Packs/Day Years Used Date Smoking Tobacco: Never Assessed Comments Unknown Sex and Gender Information Value Date Recorded Sex Assigned at Not on file Legal Sex Female 3:23 AM OPS ANALYST Gender Identity Not on file Sexual Orientation Not on file documented as of this encounter Plan of Treatment Not on file documented as of this encounter Visit Diagnoses Diagnosis Contusion of back(922.31)- Primary Contusion of back documented in this encounter Care Teams Machine Erector Relationship Specialty Start Date End Date Martha Arriaga MD PCP - General Internal Medicine 05/10/20 documented as of this encounter
--- OUTSIDE RECORDS SUMMARY | 2024-12-07 11:24 | XMS_ITS | Encounter Summary ---
Author Organization [facility] Address [address] [place] [address] Care Team Providers Care Manager Infrastructure Name Role Phone Martha Arriaga MD Primary Care Provid er Encounter Details Date Type Department Care Team (Latest Contact Info) Description 12/22/2004 Outpatient Historical [facility] - [facility] [address] [place] [address] Luis Carlos Saldaña OPEN WOUND KNEE/LEG-COMPL (Primary Dx) Social History Tobacco Use Types Packs/Day Years Used Date Smoking Tobacco: Never Assessed Comments Unknown Sex and Gender Information Value Date Recorded Sex Assigned at Not on file Legal Sex Female 3:23 AM MOLD CHIPPER Gender Identity Not on file Sexual Orientation Not on file documented as of this encounter Plan of Treatment Not on file documented as of this encounter Visit Diagnoses Diagnosis Open wound of knee, leg (except thigh), and ankle, complicated- Primary documented in this encounter Care Teams Manager Infrastructure Relationship Specialty Start Date End Date Martha Arriaga MD PCP - General Internal Medicine 05/10/20 documented as of this encounter
--- OUTSIDE RECORDS SUMMARY | 2024-12-07 11:25 | XMS_ITS | Encounter Summary ---
Author Organization [employer] Address [address] [place] [address] Care Team Providers Care Produce Weigher Name Role Phone Martha Arriaga MD Primary Care Provid er Encounter Details Date Type Department Care Team (Latest Contact Info) Description 06/16/2004 Inpatient Historical [facility] PATIENT IN A BED Khris Simeon MD [address] [place] [address] OTHER POSTOP INFECTION (Primary Dx) Social History Tobacco Use Types Packs/Day Years Used Date Smoking Tobacco: Never Assessed Comments Unknown Sex and Gender Information Value Date Recorded Sex Assigned at Not on file Legal Sex Female 3:23 AM VEGETABLE COOK Gender Identity Not on file Sexual Orientation Not on file documented as of this encounter Plan of Treatment Not on file documented as of this encounter Visit Diagnoses Diagnosis Other postoperative infection- Primary documented in this encounter Care Teams Produce Weigher Relationship Specialty Start Date End Date Martha Arriaga MD PCP - General Internal Medicine 05/10/20 documented as of this encounter
--- OUTSIDE RECORDS SUMMARY | 2024-12-07 11:25 | XMS_ITS | Encounter Summary ---
Author Organization [facility] Address [address] [place] [address] Care Team Providers Care Marine Insurance Claim Examiner Name Role Phone Martha Arriaga MD Primary Care Provid er Encounter Details Date Type Department Care Team (Late st Contact Info) Description 07/03/1999 Outpatient Historical [facility] Internal Medicine Medical [place] [facility] [address] [facility] [address] [place] [phone] Cheikh Tsang MD [address] [facility] [address] [place], [place] [phone] Social History Tobacco Use Types Packs/Day Years Used Date Smoking Tobacco: Never Assessed Comments Unknown Sex and Gender Information Value Date Recorded Sex Assigned at Not on file Legal Sex Female 3:23 AM MECHANICAL INTEGRITY SPECIALIST Gender Identity Not on file Sexual Orientation Not on file documented as of this encounter Plan of Treatment Not on file documented as of this encounter Visit Diagnoses Not on filedocumented in this encounter Care Teams Marine Insurance Claim Examiner Relationship Specialty Start Date End Date Martha Arriaga MD PCP - General Internal Medicine 05/10/20 documented as of this encounter
--- OUTSIDE RECORDS SUMMARY | 2024-12-07 11:25 | XMS_ITS | Encounter Summary ---
Author Organization [employer] Address [address] [place] [address] Care Team Providers Care Mat Man Name Role Phone Martha Arriaga MD Primary Care Provid er Encounter Details Date Type Department Care Team (Late st Contact Info) Description 11/15/2002 Outpatient Historical [facility] Noé Lobato MD [address] [place] [address] Social History Tobacco Use Types Packs/Day Years Used Date Smoking Tobacco: Never Assessed Comments Unknown Sex and Gender Information Value Date Recorded Sex Assigned at Not on file Legal Sex Female 3:23 AM FRONT END MANAGER Gender Identity Not on file Sexual Orientation Not on file documented as of this encounter Plan of Treatment Not on file documented as of this encounter Visit Diagnoses Not on filedocumented in this encounter Care Teams Mat Man Relationship Specialty Start Date End Date Martha Arriaga MD PCP - General Internal Medicine 05/10/20 documented as of this encounter
--- OUTSIDE RECORDS SUMMARY | 2024-12-07 11:25 | XMS_ITS | Encounter Summary ---
Author Organization [facility] Address [address] [place] [address] Care Team Providers Care Arbitrator Name Role Phone Martha Arriaga MD Primary Care Provid er Encounter Details Date Type Department Care Team (Late st Contact Info) Description 07/12/2003 Outpatient Historical [facility] Internal Medicine - [place] [address] [place] [address] [place]awn Saldaña [place] [address] [place] [address] Social History Tobacco Use Types Packs/Day Years Used Date Smoking Tobacco: Never Assessed Comments Unknown Sex and Gender Information Value Date Recorded Sex Assigned at Not on file Legal Sex Female 3:23 AM HOUSEKEEPING ROOM ATTENDANT Gender Identity Not on file Sexual Orientation Not on file documented as of this encounter Last Filed Vital Signs Vital Sign Reading Time Taken Comments Blood Pressure 118/78 07/12/2003 11:30 AM HOUSEKEEPING ROOM ATTENDANT Pulse 78 07/12/2003 11:30 AM HOUSEKEEPING ROOM ATTENDANT Temperature - - Respiratory Rate - - Oxygen Saturation - - Inhaled Oxygen Concentration - - Weight 120.7 kg (266 lb) 07/12/2003 11:30 AM HOUSEKEEPING ROOM ATTENDANT Height - - Body Mass Index - - documented in this encounter Plan of Treatment Not on file documented as of this encounter Visit Diagnoses Not on filedocumented in this encounter Care Teams Arbitrator Relationship Specialty Start Date End Date Martha Arriaga MD PCP - General Internal Medicine 05/10/20 documented as of this encounter
--- OUTSIDE RECORDS SUMMARY | 2024-12-07 11:25 | XMS_ITS | Encounter Summary ---
Author Organization [employer] Address [address] [place] [address] Care Team Providers Care Narcotics Agent Name Role Phone Martha Arriaga MD Primary Care Provid er Encounter Details Date Type Department Care Team (Latest Contact Info) Description 01/07/2000 Inpatient Historical [facility] PATIENT IN A BED [facility] Incisional hernia without mention of obstruction or gangrene (Primary Dx) Social History Tobacco Use Types Packs/Day Years Used Date Smoking Tobacco: Never Assessed Comments Unknown Sex and Gender Information Value Date Recorded Sex Assigned at Not on file Legal Sex Female 3:23 AM MARKET RESEARCH INTERVIEWER Gender Identity Not on file Sexual Orientation Not on file documented as of this encounter Plan of Treatment Not on file documented as of this encounter Visit Diagnoses Diagnosis Incisional hernia without mention of obstruction or gangrene- Primary documented in this encounter Care Teams Narcotics Agent Relationship Specialty Start Date End Date Martha Arriaga MD PCP - General Internal Medicine 05/10/20 documented as of this encounter
--- OUTSIDE RECORDS SUMMARY | 2024-12-07 11:25 | XMS_ITS | Encounter Summary ---
Author Organization [facility] Address [address] [place] [address] Care Team Providers Care Cargo Trimmer Name Role Phone Martha Arriaga MD Primary Care Provid er Encounter Details Date Type Department Care Team (Late st Contact Info) Description 11/03/2003 Outpatient Historical [facility] Internal Medicine - [place] [address] [place] [phone] Lashawn Saldaña [place] [address] [place] [phone] Social History Tobacco Use Types Packs/Day Years Used Date Smoking Tobacco: Never Assessed Comments Unknown Sex and Gender Information Value Date Recorded Sex Assigned at Not on file Legal Sex Female 3:23 AM FUNERAL WORKERS Gender Identity Not on file Sexual Orientation Not on file documented as of this encounter Last Filed Vital Signs Vital Sign Reading Time Taken Comments Blood Pressure 120/78 11/03/2003 9:15 AM FUNERAL WORKERS Pulse 66 11/03/2003 9:15 AM FUNERAL WORKERS Temperature - - Respiratory Rate - - Oxygen Saturation - - Inhaled Oxygen Concentration - - Weight 114.8 kg (253 lb) 11/03/2003 9:15 AM FUNERAL WORKERS Height - - Body Mass Index - - documented in this encounter Plan of Treatment Not on file documented as of this encounter Visit Diagnoses Not on filedocumented in this encounter Care Teams Cargo Trimmer Relationship Specialty Start Date End Date Martha Arriaga MD PCP - General Internal Medicine 05/10/20 documented as of this encounter
--- OUTSIDE RECORDS SUMMARY | 2024-12-07 11:25 | XMS_ITS | Encounter Summary ---
Author Organization Address [address] [place] [address] Care Team Providers Care Warehouse Sorter Name Role Phone Martha Arriaga MD Primary Care Provid er Encounter Details Date Type Department Care Team (Late st Contact Info) Description 09/01/2001 Outpatient Historical [facility] Internal Medicine Medical [place] [facility] [address] [facility] [address] [address] Frankie Raygoza MD NO ADDRESS ON FILE Social History Tobacco Use Types Packs/Day Years Used Date Smoking Tobacco: Never Assessed Comments Unknown Sex and Gender Information Value Date Recorded Sex Assigned at Not on file Legal Sex Female 3:23 AM SENIOR TECHNICAL ANALYST Gender Identity Not on file Sexual Orientation Not on file documented as of this encounter Plan of Treatment Not on file documented as of this encounter Visit Diagnoses Not on filedocumented in this encounter Care Teams Warehouse Sorter Relationship Specialty Start Date End Date Martha Arriaga MD PCP - General Internal Medicine 05/10/20 documented as of this encounter
--- OUTSIDE RECORDS SUMMARY | 2024-12-07 11:25 | XMS_ITS | Encounter Summary ---
Author Organization [facility] Address [address] [place] [address] Care Team Providers Care Nuclear Logging Engineer Name Role Phone Martha Arriaga MD Primary Care Provid er Encounter Details Date Type Department Care Team (Latest Contact Info) Description 01/10/1999 Outpatient Historical [facility] Cheikh Ortiz MD [facility] [address] [place] [address] Depressive disorder, not elsewhere classified (Primary Dx) Social History Tobacco Use Types Packs/Day Years Used Date Smoking Tobacco: Never Assessed Comments Unknown Sex and Gender Information Value Date Recorded Sex Assigned at Not on file Legal Sex Female 3:23 AM BLOCKERS SKIVER Gender Identity Not on file Sexual Orientation Not on file documented as of this encounter Plan of Treatment Not on file documented as of this encounter Visit Diagnoses Diagnosis Depressive disorder, not elsewhere classified- Primary documented in this encounter Care Teams Nuclear Logging Engineer Relationship Specialty Start Date End Date Martha Arriaga MD PCP - General Internal Medicine 05/10/20 documented as of this encounter
--- OUTSIDE RECORDS SUMMARY | 2024-12-07 11:25 | XMS_ITS | Encounter Summary ---
Author Organization [facility] Address [address] [place] [address] Care Team Providers Care General Counsel Name Role Phone Martha Arriaga MD Primary [...] on file Legal Sex Female 3:23 AM HEALTHCARE ADVISORY SERVICES MANAGER Gender Identity Not on file Sexual Orientation Not on file documented as of this encounter Plan of Treatment Not on file documented as of this encounter Visit Diagnoses Diagnosis Contusion of unspecified part of trunk- Primary documented in this encounter Care Teams General Counsel Relationship Specialty Start Date End Date Martha Arriaga MD PCP - General Internal Medicine 05/10/20 documented as of this encounter
--- OUTSIDE RECORDS SUMMARY | 2024-12-07 11:25 | XMS_ITS | Encounter Summary ---
Author Organization [facility] Address [address] [place] [address] Care Team Providers Care Homeopathic Doctor Name Role Phone Martha Arriaga MD Primary Care Provid er Encounter Details Date Type Department Care Team (Late st Contact Info) Description 07/25/2004 Outpatient Historical [facility] - [facility] [address] [place] [id number] [place] [address] [place] [phone] Social History Tobacco Use Types Packs/Day Years Used Date Smoking Tobacco: Never Assessed Comments Unknown Sex and Gender Information Value Date Recorded Sex Assigned at Not on file Legal Sex Female 3:23 AM ASSEMBLER [employer]GICAL GARMENT Gender Identity Not on file Sexual Orientation Not on file documented as of this encounter Plan of Treatment Not on file documented as of this encounter Visit Diagnoses Not on filedocumented in this encounter Care Teams Homeopathic Doctor Relationship Specialty Start Date End Date Martha Arriaga MD PCP - General Internal Medicine 05/10/20 documented as of this encounter
--- OUTSIDE RECORDS SUMMARY | 2024-12-07 11:25 | XMS_ITS | Encounter Summary ---
Author Organization [facility] Address [address] [place] [address] Care Team Providers Care Cylinder Steamer Name Role Phone Martha Arriaga MD Primary Care Provid er Encounter Details Date Type Department Care Team (Latest Contact Info) Description 07/11/2004 Outpatient Historical [facility] - [facility] [address] [place] [address] Luis Carlos Saldaña OPEN WOUND [id number] (Primary Dx) Social History Tobacco Use Types Packs/Day Years Used Date Smoking Tobacco: Never Assessed Comments Unknown Sex and Gender Information Value Date Recorded Sex Assigned at Not on file Legal Sex Female 3:23 AM COMMUNITY HEALTH ADVISOR Gender Identity Not on file Sexual Orientation Not on file documented as of this encounter Plan of Treatment Not on file documented as of this encounter Visit Diagnoses Diagnosis Open wound of knee, leg (except thigh), and ankle, complicated- Primary documented in this encounter Care Teams Cylinder Steamer Relationship Specialty Start Date End Date Martha Arriaga MD PCP - General Internal Medicine 05/10/20 documented as of this encounter
--- OUTSIDE RECORDS SUMMARY | 2024-12-07 11:25 | XMS_ITS | Data Portability ---
Author Organization [facility] DARLINArian Address [address] [place] [address] Care Team Providers Care Infrastructure Solutions Architect Name Role Phone DEMETRIUS LEW Primary Care Provider HENRIQUE AGUILAR Artificial Pearl Maker Assessment Encounter Date Assessment Date Assessment LastModified [...] care instructions mammogram refuses flu refuses COVID [email or web address] Not available 06/13/2024 17:57:21 10/02/2024 10/02/2024 2nd opinion on t he biopsy for her thyroid healthy lifestyle care instructions she was up appointment for mammogram and breast ultrasound coming up I believe next week other medications we will continue. Complete PFTs she does have a smoking history also we will get echocardiogram she will see me back in 3 months. Chest x-ray. Dermatology. [email or web address] Not available 10/03/2024 17:20:43 Plan of Treatment Reminders Order Date Submit Date Provider Last Modified By Organization Details Last Modified Time Details Appointments ANNUAL 30 2024 01:15P Duke Lew MD Not available Not available Not available Lab CBC w/ auto diff 2023 [facility], [address], [address], [place], [address], 06/23/2024 13:12:39 urinalysi s complete, reflex culture 2023 024 [facility], [address], [address], [place], [address], 06/23/2024 13:12:30 rf (rheumato id factor), serum 2023 024 [facility], [address], [address], [place], [address], 06/23/2024 13:12:41 BRIDGER (antinucl ear antibodie s) screen, serum 2023 024 [facility], [address], [address], [place], [address], 06/23/2024 13:12:25 ESR (erythroc yte sedimenta tion rate), blood 2023 024 [facility], [address], [place], [address], 06/23/2024 13:12:40 C reactive protein, QN, serum or plasma 2023 024 [facility], [address], [place], [address], 06/23/2024 13:12:42 T3, free, serum or plasma 2023 024 [facility], [address], [address], [place], [address], 06/23/2024 13:12:44 T4, free, serum 2023 [facility], [address], [place], [address], 06/23/2024 13:12:46 TSH, ultra-sen sitive, serum 2023 024 [facility], [address], [place], [address], 06/23/2024 13:12:36 vitamin D, 25-hydrox y, total, serum 2023 024 [facility], [address], [place], [address], 06/23/2024 13:12:47 lipid panel, serum 2023 024 [facility], [address], [place], [address], 06/23/2024 13:12:27 CMP, serum or plasma 2023 024 [facility], [address], [place], [address], 06/23/2024 13:12:28 factor V mutation, blood or tissue 2023 024 [facility], [address], [place], [address], 06/23/2024 13:12:32 protein S Ag, total + free, plasma 2023 024 [facility], [address], [place], [address], 06/15/2024 15:10:24 protein C Ag, total, plasma 2023 [facility], [address], [place], [address], 06/14/2024 17:07:43 antiphosp holipid antibody panel, serum 2023 024 [facility], [address], [place], [address], 06/23/2024 13:12:26 homocyste ine, moles/vol ume, serum 2023 024 [facility], [address], [place], [address], 06/23/2024 13:12:33 antithrom bin activity, plasma 2023 024 [facility], [address], [place], [address], 06/15/2024 06:07:57 HbA1c (hemoglob in A1c), blood 2023 024 [facility], [address], [place], [address], 06/23/2024 13:12:35 insulin, serum 2023 024 [facility], [address], [place], [address], 06/23/2024 13:12:38 noninvasi ve colorecta l cancer DNA + occult blood screening , QL, stool 2023 [facility] (Cologuard Orders Only), [address], [address], [place], [address], 07/24/2024 01:04:44 vitamin B12 + folate, serum or blood 2023 024 [facility], [address], [place], [address], 06/23/2024 13:12:34 Referral ENT surgery referral 2024 025 nataliia Banks MD, [address], [place], [address], 12/03/2024 15:21:58 dermatolo gist referral 2024 025 [facility] [place], [address], 12/03/2024 15:22:21 Procedures None recorded. Surgeries None recorded. Imaging electroca rdiogram 2024 025 [email or web address] In-Office Order, Internal Use Only DO Not Attach Compendium DO Not Attach Compendium, Do Not Delete/merge, [id number] 10/05/2024 12:55:14 PFT, complete - with DLCO 2024 025 [facility] (Cardiology [facility] Em[facility]), [address], [place], [address], 11/19/2024 17:01:54 US, echocardi ogram 2024 025 [facility] ([facility]iology [facility]), [address], [place], [address], 11/19/2024 16:21:12 MAMMO, screening , digital, bilateral 2023 024 [facility], [address], [place], [address], 09/16/2024 18:24:37 CT, abdomen + pelvis, w/ contrast [address] [facility] (Ultrasound Scheduling), [address] [place], [address], 07/15/2024 11:52:15 Medication Orders None recorded. Patient TargetsNo targets recorded. Patient Instructions Encounter Date Encounter Id Patient Instructions Last Modified By Organization Details Last Modified Time 06/12/2024 [id number] A healthy lifestyle: care instructions [email or web address] Not available 06/12/2024 11:59:03 10/02/2024 [id number] A healthy lifestyle: care instructions [email or web address] Not available 10/02/2024 12:47:57 Reason for Referral [employer] Developer Referral for S kin lesion Referring Physician: Demetrius Lew, Internal Medicine, Encounter Date: 10/02/2024 ENT Surgery Referral for Thy roid nodule Referring Physician: Demetrius Lew, Internal Medicine, Encounter Date: 10/02/2024 Results Created Date Observation Date Name Description Value Unit Range Abnormal Flag Note LastModifiedBy Organization Detail LastModifiedTime 06/12/2006/14/2024 PROTE IN C ANTIG EN protein C antigen 116 % 60-150 Not Available [facility] ([facility]) [address] [facility], [place], [address], 06/14/2024 17:07:43 06/12/2006/14/2024 ANTIT HROMB IN ACTIV ITY antithrombin activity 117 % 75-135 Direc t Xa inhib itor antic oagul ants such as rivar oxaba n, apixa ban and edoxa ban will lead to spuri ously eleva eduardo antit hromb in activ ity level s possi yessenia maski ng a defic iency . Not Available [facility] ([facility]) [address] [facility], [place], [address], 06/15/2024 06:07:57 06/12/2006/15/2024 PROTE IN S PANEL protein S, total 111 % 60-150 This test was devel oped and its perfo rmanc e syeda cteri stics deter mined by [facility]. It has not been clear ed or appro shannon by the Food and Drug Admin istra tion. Not Available [facility] ([facility]) [address] [facility], [place], [address], 06/15/2024 15:10:24 06/12/20 24 06/15/2024 PROTE IN S PANEL protein S, free 106 % 61-136 Not Available [facility] ([facility]) [address] [facility], [place], [address], 06/15/2024 15:10:24 06/12/20 24 06/15/2024 PROTE IN [...] clini gretchen scena kennedy. Not Available [facility] ([facility]) [address] [place], [address], 06/15/2024 15:10:24 06/12/20 24 06/15/2024 MAGNUS+C 3+C4+ DNA/D S+ANT ICH+C EN... anti-DNA (ds) Ab qn <1 IU/mL 0-9 Negat min <5 Equiv ocal 5 - 9 Posit min >9 Not Available [facility] ([facility]) [address] [facility], [place], [address], 06/23/2024 13:12:24 06/12/20 24 06/15/2024 MAGNUS+C 3+C4+ DNA/D S+ANT ICH+C EN... clinical data associate antibodies 1.0 ai 0.0-0. 9 above high normal Not Available [facility] ([facility]) [address] [facility], [place], [address], 06/23/2024 13:12:24 06/12/20 24 06/15/2024 MAGNUS+C 3+C4+ DNA/D S+ANT ICH+C EN... szymanski antibodies <0.2 ai 0.0-0. 9 Not Available [facility] ([facility]) [address] [place], [address], 06/23/2024 13:12:24 06/12/20 24 06/15/2024 MAGNUS+C 3+C4+ DNA/D S+ANT ICH+C EN... antisclerode rma-70 antibodies <0.2 Not Available [facility] ([facility]) [address] [place], [address], 06/23/2024 13:12:24 06/12/20 24 06/15/2024 MAGNUS+C 3+C4+ DNA/D S+ANT ICH+C EN... sjogren's anti-ss-A <0.2 Not Available [facility] ([facility]) [address] [place], [address], 06/23/2024 13:12:24 06/12/20 24 06/15/2024 MAGNUS+C 3+C4+ DNA/D S+ANT ICH+C EN... sjogren's anti-ss-B <0.2 Not Available [facility] ([facility]) [address] [place], [address], 06/23/2024 13:12:24 06/12/20 24 06/15/2024 MAGNUS+C 3+C4+ DNA/D S+ANT ICH+C EN... antichromati n antibodies <0.2 Not Available [facility] ([facility]) [address] [place], [address], 06/23/2024 13:12:24 06/12/20 24 06/15/2024 MAGNUS+C 3+C4+ DNA/D S+ANT ICH+C EN... anti-hellen-1 <0.2 Not Available [facility] ([facility]) [address] [place], [address], 06/23/2024 13:12:24 06/12/20 24 06/15/2024 MAGNUS+C 3+C4+ DNA/D S+ANT ICH+C EN... anti-centrom ere B antibodies <0.2 Not Available [facility] ([facility]) [address] [place], [address], 06/23/2024 13:12:24 06/12/20 24 06/15/2024 MAGNUS+C 3+C4+ [...] ----- ----- ----- ----- --- ----- ---- PROJECT SAFETY MANAGER Mixed Conne ctive Tissu e Disea se 95% (U1 nRNP, SLE 30 - 50% anti- ribon ucleo prote in) Polym yosit is and/o r [place] tomyo sitis 20% ----- ----- ----- ----- - ----- ----- ----- ----- ---- ----- ---- Scl-7 0 (anti DNA Scler oderm a (diff use) 20 - 35% topoi alea ase) Crest 13% ----- ----- ----- ----- - ----- ----- ----- ----- ---- ----- ---- Hellen-1 Polym yosit is and/o r [place] tomyo sitis 20 - 40% ----- ----- ----- ----- - ----- ----- ----- ----- ---- ----- ---- Centr omere B Scler oderm a - Crest varia nt 80% Not Available [facility] ([facility]) [address] [facility], [place], [address], 06/23/2024 13:12:24 06/12/20 24 06/16/2024 MAGNUS+C 3+C4+ DNA/D S+ANT ICH+C EN... complement C3, serum 225 mg/dL 82-167 above high normal Not Available [facility] ([facility]) [address] [facility], [place], [address], 06/23/2024 13:12:24 06/12/20 24 06/16/2024 MAGNUS+C 3+C4+ DNA/D S+ANT ICH+C EN... complement C4, serum 22 mg/dL 12-38 Not Available [facility] ([facility]) [address] [facility], [place], [address], 06/23/2024 13:12:24 06/12/20 24 06/15/2024 BRIDGER BRIDGER direct POSITI VE negati ve abnormal Not Available [facility] ([facility]) [address] [facility], [place], [address], 06/23/2024 13:12:25 06/12/20 24 06/12/2024 ANTIP HOSPH [...] and PS are based on oskar garay [facility] data stand ardiz ed to equiv alent [...] ----- ----- ----- ----- Not Available [facility] ([facility]) [address] [facility], [place], [address], 06/23/2024 13:12:26 06/12/20 24 06/23/2024 ANTIP HOSPH OLIPI D ANTIB ROSETTE specimen status COMMEN T [facility] sent via fax. Not Available [facility] ([facility]) [address] [facility], [place], [address], 06/23/2024 13:12:26 06/12/20 24 06/13/2024 LIPID PANEL cholesterol, total 168 mg/dL 100-19 9 Not Available [facility] ([facility]) [address] [facility], [place], [address], 06/23/2024 13:12:27 06/12/20 24 06/13/2024 LIPID PANEL triglyceride s 151 mg/dL 0-149 above high normal Not Available [facility] ([facility]) [address] [place], [address], 06/23/2024 13:12:27 06/12/20 24 06/13/2024 LIPID PANEL HDL cholesterol 41 mg/dL >39 Not Available [facility] ([facility]) [address] [place], [address], 06/23/2024 13:12:27 06/12/20 24 06/13/2024 LIPID PANEL VLDL cholesterol gretchen 27 mg/dL 5-40 Not Available [facility] ([facility]) [address] [facility] [place], [address], 06/23/2024 13:12:27 06/12/20 24 06/13/2024 LIPID PANEL LDL chol calc ([facility]) 100 mg/dL 0-99 above high normal Not Available [facility] ([facility]) [address] [facility] [place], [address], 06/23/2024 13:12:27 06/12/20 24 06/13/2024 COMP. METAB OLIC PANEL (14) glucose 107 mg/dL 70-99 above high normal Not Available [facility] ([facility]) [address] [facility] [place], [address], 06/23/2024 13:12:28 06/12/20 24 06/13/2024 COMP. METAB OLIC PANEL (14) BUN 18 mg/dL 8-27 Not Available [facility] ([facility]) [address] [facility] [place], [address], 06/23/2024 13:12:28 06/12/20 24 06/13/2024 COMP. METAB OLIC PANEL (14) creatinine 1.13 mg/dL 0.57-1 .00 above high normal Not Available [facility] ([facility]) [address] [facility] [place], [address], 06/23/2024 13:12:28 06/12/20 24 06/13/2024 COMP. METAB OLIC PANEL (14) eGFR 52 mL/mi n/1.7 3 >59 below low normal Not Available [facility] ([facility]) [address] [facility] [place], [address], 06/23/2024 13:12:28 06/12/20 24 06/13/2024 COMP. METAB OLIC PANEL (14) BUN/creatini ne ratio 16 12-28 Not Available [facility] ([facility]) [address] [facility] [place], [address], 06/23/2024 13:12:28 06/12/20 24 06/13/2024 COMP. METAB OLIC PANEL (14) sodium 142 mmol/ L 134-14 4 Not Available [facility] ([facility]) [address] [place], [address], 06/23/2024 13:12:28 06/12/20 24 06/13/2024 COMP. METAB OLIC PANEL (14) potassium 4.5 mmol/ L 3.5-5. 2 Not Available [facility] ([facility]) [address] [place], [address], 06/23/2024 13:12:28 06/12/20 24 06/13/2024 COMP. METAB OLIC PANEL (14) chloride 102 mmol/ L 96-106 Not Available [facility] ([facility]) [address] [place], [address], 06/23/2024 13:12:28 06/12/20 24 06/13/2024 COMP. METAB OLIC PANEL (14) carbon dioxide, total 27 mmol/ L 20-29 Not Available [facility] ([facility]) [address] [facility] [place], [address], 06/23/2024 13:12:28 06/12/20 24 06/13/2024 COMP. METAB OLIC PANEL (14) calcium 9.2 mg/dL 8.7-10 .3 Not Available [facility] ([facility]) [address] [facility] [place], [address], 06/23/2024 13:12:28 06/12/20 24 06/13/2024 COMP. METAB OLIC PANEL (14) protein, total 7.6 g/dL 6.0-8. 5 Not Available [facility] ([facility]) [address] [facility] [place], [address], 06/23/2024 13:12:28 06/12/20 24 06/13/2024 COMP. METAB OLIC PANEL (14) albumin 4.1 g/dL 3.9-4. 9 Not Available [facility] ([facility]) [address] [facility] [place], [address], 06/23/2024 13:12:28 06/12/20 24 06/13/2024 COMP. METAB OLIC PANEL (14) globulin, total 3.5 g/dL 1.5-4. 5 Not Available [facility] ([facility]) [address] [facility], [place], [address], 06/23/2024 13:12:28 06/12/20 24 06/13/2024 COMP. METAB OLIC PANEL (14) bilirubin, total 0.7 mg/dL 0.0-1. 2 Not Available [facility] ([facility]) [address] [facility] [place], [address], 06/23/2024 13:12:28 06/12/20 24 06/13/2024 COMP. METAB OLIC PANEL (14) alkaline phosphatase 74 IU/L 44-121 Not Available [facility] ([facility]) [address] [place], [address], 06/23/2024 13:12:28 06/12/20 24 06/13/2024 COMP. METAB OLIC PANEL (14) AST (SGOT) 32 IU/L 0-40 Not Available [facility] ([facility]) [address] [place], [address], 06/23/2024 13:12:28 06/12/20 24 06/13/2024 COMP. METAB OLIC PANEL (14) ALT (SGPT) 29 IU/L 0-32 Not Available [facility] ([facility]) [address] [place], [address], 06/23/2024 13:12:28 06/12/20 24 06/13/2024 MICRO SCOPI C EXAMI NATIO N WBC >30 /hpf 0-5 abnormal Not Available [facility] ([facility]) [address] [facility], [place], [address], 06/23/2024 13:12:30 06/12/20 24 06/13/2024 MICRO SCOPI C EXAMI NATIO N RBC 0-2 /hpf 0-2 Not Available [facility] ([facility]) [address] [facility], [place], [address], 06/23/2024 13:12:30 06/12/20 24 06/13/2024 MICRO SCOPI C EXAMI NATIO N epithelial cells (non renal) 0-10 /hpf 0-10 Not Available [facility] ([facility]) [address] [facility], [place], [address], 06/23/2024 13:12:30 06/12/20 24 06/13/2024 MICRO SCOPI C EXAMI NATIO N casts None seen /lpf nonese en Not Available [facility] ([facility]) [address] [facility], [place], [address], 06/23/2024 13:12:30 06/12/20 24 06/13/2024 MICRO SCOPI C EXAMI NATIO N bacteria Many nonese en/few abnormal Not Available [facility] ([facility]) [address] [facility], [place], [address], 06/23/2024 13:12:30 06/12/20 24 06/13/2024 UA WITH CULTU RE REFLE X specific gravity 1.019 1.005- 1.030 Not Available [facility] ([facility]) [address] [facility], [place], [address], 06/23/2024 13:12:30 06/12/20 24 06/13/2024 UA WITH CULTU RE REFLE X pH 6.5 5.0-7. 5 Not Available [facility] ([facility]) [address] [place], [address], 06/23/2024 13:12:30 06/12/20 24 06/13/2024 UA WITH CULTU RE REFLE X urine-color YELLOW yellow Not Available [facility] ([facility]) [address] [facility], [place], [address], 06/23/2024 13:12:30 06/12/20 24 06/13/2024 UA WITH CULTU RE REFLE X appearance CLOUDY clear abnormal Not Available [facility] ([facility]) [address] [facility], [place], [address], 06/23/2024 13:12:30 06/12/20 24 06/13/2024 UA WITH CULTU RE REFLE X WBC esterase 2+ negati ve abnormal Not Available [facility] ([facility]) [address] [facility], [place], [address], 06/23/2024 13:12:30 06/12/20 24 06/13/2024 UA WITH CULTU RE REFLE X protein 2+ negati ve/tra ce abnormal Not Available [facility] ([facility]) [address] [facility], [place], [address], 06/23/2024 13:12:30 06/12/20 24 06/13/2024 UA WITH CULTU RE REFLE X glucose NEGATI VE negati ve Not Available [facility] ([facility]) [address] [facility], [place], [address], 06/23/2024 13:12:30 06/12/20 24 06/13/2024 UA WITH CULTU RE REFLE X ketones NEGATI VE negati ve Not Available [facility] ([facility]) [address] [facility], [place], [address], 06/23/2024 13:12:30 06/12/20 24 06/13/2024 UA WITH CULTU RE REFLE X occult blood TRACE negati ve abnormal Not Available [facility] ([facility]) [address] [facility], [place], [address], 06/23/2024 13:12:30 06/12/20 24 06/13/2024 UA WITH CULTU RE REFLE X bilirubin NEGATI VE negati ve Not Available [facility] ([facility]) [address] [facility], [place], [address], 06/23/2024 13:12:30 06/12/20 24 06/13/2024 UA WITH CULTU RE REFLE X urobilinogen ,semi-qn 1.0 mg/dL 0.2-1. 0 Not Available [facility] ([facility]) [address] [facility], [place], [address], 06/23/2024 13:12:30 06/12/20 24 06/13/2024 UA WITH CULTU RE REFLE X nitrite, urine POSITI VE negati ve abnormal Not Available [facility] ([facility]) [address] [facility], [place], [address], 06/23/2024 13:12:30 06/12/20 24 06/13/2024 UA WITH CULTU RE REFLE X microscopic examination SEE BELOW: Micro scopi c was indic ated and was perfo rmed. Not Available [facility] ([facility]) [address] [facility], [place], [address], 06/23/2024 13:12:30 06/12/20 24 06/13/2024 UA WITH CULTU RE REFLE X urinalysis reflex COMMEN T This speci men has refle xed to a Urine Cultu re. Not Available [facility] ([facility]) [address] [place], [address], 06/23/2024 13:12:30 06/12/20 24 06/19/2024 FACTO R V LEIDE N MUTAT ION factor V leiden COMMEN T abnormal Resul t: c.160 1G>A (p.Ar g534G ln) - Detec eduardo, [facility] This resul t is assoc iated with [...] for venou s throm boemb olism . [facility] chapis ers of this varia nt have [...] Facto r V Leide n (PMID : 42740 [id number]). Addit ional risk facto rs inclu [...] ders to discu ss resul ts at [phone]- GENE (0847 ). Test Detai ls: Varia nt Kaela zed: c.160 1G>A (p. Arg53 4Gln) , refer red to as Facto r V Leide n Metho ds/Li mitat ions: DNA kaela sis of the F5 gene (NM_0 [id number] .5) was perfo rmed by PCR ampli ficat ion follo wed by restr ictio n enzym e akela sis. The diagn ostic sensi tivit y [...] 10.10 38/s4 1436- 021-0 1108- x. PMID: 34797 767. Robert cohen JL. Facto r V Leide n Throm bophi neisha. 1998December 23 (Upda eduardo 2017Aug 15). In: Rajinder MP, Shyann russell HH, Irvin RA, et al., umang rs. GeneR cordell s(R) (Inte rnet) . Gary marx ([place]): [facility] rsity of Rivka Gary jasmine; 1992- 2020. Avail able from: https ://carson holliday.ncb i.nlm .nih. gov/b ooks/ NBK13 68/ Rakan S, Saturnino luna AK, Deshawn X, Shemar B, Spect or EB, Itzel P, Cara armando CS; [facility] Labor atory Quali ty Assur ance Commi ttee. Venou s throm boemb olism labor atory testi ng (fact or V Leide n and facto r II c.*97 G>A), 2018 updat e: a techn ical stand rip of the [facility] al [employer] ([facility] ). Pardeep Med. 2017;2 0(12) :1489 -1498 . doi: 10.10 38/s4 1436- 018-0 322-z . Epub 2017May 16. PMID: 48086 698. Not Available [facility] ([facility]) [address] [facility], [place], [address], 06/23/2024 13:12:32 06/12/20 24 06/19/2024 FACTO R V LEIDE N MUTAT ION reviewed by: SARAH Olivares Techn ical [place] nent perfo rmed at [facility] Proftal shaw al [place] nent perfo rmed by: Labor atory Corpo ratio n of Felicityeri ca Holdi ngs Kevin calhoun, Ph.D. , [facility] Direc tor, Molec ular [employer]ardeep [employer] [address] [place] [address] Not Available [facility] ([facility]) [address] [facility], [place], [address], 06/23/2024 13:12:32 06/12/20 24 06/13/2024 HOMOC YST(E )INE homocyst(E)i ne 13.7 umol/ L 0.0-17 .2 Not Available [facility] ([facility]) [address] [facility], [place], [address], 06/23/2024 13:12:33 06/12/20 24 06/13/2024 VITAM IN B12 AND FOLAT E vitamin B12 349 pg/mL 232-12 45 Not Available [facility] ([facility]) [address] [facility], [place], [address], 06/23/2024 13:12:34 06/12/20 24 06/13/2024 VITAM IN B12 AND FOLAT E folate (folic acid), serum 7.0 NG/mL >3.0 A serum folat e tushar ntrat ion of less than 3.1 ng/mL is consi dered to repre sent clini gretchen defic iency . Not Available [facility] ([facility]) [address] [facility], [place], [address], 06/23/2024 13:12:34 06/12/20 24 06/13/2024 HEMOG LOBIN A1C hemoglobin A1C 6.5 % 4.8-5. 6 above high normal Predi abete s: 5.7 - 6.4 Diabe bashir: >6.4 Glyce terrell contr ol for adult s with diabe bashir: <7.0 Not Available [facility] ([facility]) [address] [place], [address], 06/23/2024 13:12:35 06/12/20 24 06/13/2024 TSH TSH 0.019 uIU/m L 0.450- 4.500 below low normal Not Available [facility] ([facility]) [address] [facility], [place], [address], 06/23/2024 13:12:36 06/12/20 24 06/13/2024 INSUL IN insulin 25.3 uIU/m L 2.6-24 .9 above high normal Not Available [facility] ([facility]) [address] [facility], [place], [address], 06/23/2024 13:12:37 06/12/20 24 06/13/2024 CBC WITH DIFFE RENTI AL/PL ATELE T WBC 5.4 x10e3 /uL 3.4-10 .8 Not Available [facility] ([facility]) [address] [facility], [place], [address], 06/23/2024 13:12:39 06/12/20 24 06/13/2024 CBC WITH DIFFE RENTI AL/PL ATELE T RBC 5.30 x10e6 /uL 3.77-5 .28 above high normal Not Available [facility] ([facility]) [address] [facility], [place], [address], 06/23/2024 13:12:39 06/12/20 24 06/13/2024 CBC WITH DIFFE RENTI AL/PL ATELE T hemoglobin 14.0 g/dL 11.1-1 5.9 Not Available [facility] ([facility]) [address] [place], [address], 06/23/2024 13:12:39 06/12/20 24 06/13/2024 CBC WITH DIFFE RENTI AL/PL ATELE T hematocrit 44.1 % 34.0-4 6.6 Not Available [facility] ([facility]) [address] [place], [address], 06/23/2024 13:12:39 06/12/20 24 06/13/2024 CBC WITH DIFFE RENTI AL/PL ATELE T MCV 83 fL 79-97 Not Available [facility] ([facility]) [address] [facility], [place], [address], 06/23/2024 13:12:39 06/12/20 24 06/13/2024 CBC WITH DIFFE RENTI AL/PL ATELE T MCH 26.4 pg 26.6-3 3.0 below low normal Not Available [facility] ([facility]) [address] [place], [address], 06/23/2024 13:12:39 06/12/20 24 06/13/2024 CBC WITH DIFFE RENTI AL/PL ATELE T MCHC 31.7 g/dL 31.5-3 5.7 Not Available [facility] ([facility]) [address] [place], [address], 06/23/2024 13:12:39 06/12/20 24 06/13/2024 CBC WITH DIFFE RENTI AL/PL ATELE T RDW 14.6 % 11.7-1 5.4 Not Available [facility] ([facility]) [address] [place], [address], 06/23/2024 13:12:39 06/12/20 24 06/13/2024 CBC WITH DIFFE RENTI AL/PL ATELE T platelets 186 x10e3 /uL 150-45 0 Not Available [facility] ([facility]) [address] [place], [address], 06/23/2024 13:12:39 06/12/20 24 06/13/2024 CBC WITH DIFFE RENTI AL/PL ATELE T neutrophils 58 % notest ab. Not Available [facility] ([facility]) [address] [place], [address], 06/23/2024 13:12:39 06/12/20 24 06/13/2024 CBC WITH DIFFE RENTI AL/PL ATELE T lymphs 32 % notest ab. Not Available [facility] ([facility]) [address] [place], [address], 06/23/2024 13:12:39 06/12/20 24 06/13/2024 CBC WITH DIFFE RENTI AL/PL ATELE T monocytes 7 % notest ab. Not Available [facility] ([facility]) [address] [facility], [place], [address], 06/23/2024 13:12:39 06/12/20 24 06/13/2024 CBC WITH DIFFE RENTI AL/PL ATELE T eos 2 % notest ab. Not Available [facility] ([facility]) [address] [place], [address], 06/23/2024 13:12:39 06/12/20 24 06/13/2024 CBC WITH DIFFE RENTI AL/PL ATELE T basos 1 % notest ab. Not Available [facility] ([facility]) [address] [place], [address], 06/23/2024 13:12:39 06/12/20 24 06/13/2024 CBC WITH DIFFE RENTI AL/PL ATELE T neutrophils (absolute) 3.1 x10e3 /uL 1.4-7. 0 Not Available [facility] ([facility]) [address] [place], [address], 06/23/2024 13:12:39 06/12/20 24 06/13/2024 CBC WITH DIFFE RENTI AL/PL ATELE T lymphs (absolute) 1.7 x10e3 /uL 0.7-3. 1 Not Available [facility] ([facility]) [address] [place], [address], 06/23/2024 13:12:39 06/12/20 24 06/13/2024 CBC WITH DIFFE RENTI AL/PL ATELE T monocytes(ab solute) 0.4 x10e3 /uL 0.1-0. 9 Not Available [facility] ([facility]) [address] [place], [address], 06/23/2024 13:12:39 06/12/20 24 06/13/2024 CBC WITH DIFFE RENTI AL/PL ATELE T eos (absolute) 0.1 x10e3 /uL 0.0-0. 4 Not Available [facility] ([facility]) [address] [facility], [place], [address], 06/23/2024 13:12:39 06/12/20 24 06/13/2024 CBC WITH DIFFE RENTI AL/PL ATELE T baso (absolute) 0.0 x10e3 /uL 0.0-0. 2 Not Available [facility] ([facility]) [address] [facility], [place], [address], 06/23/2024 13:12:39 06/12/20 24 06/13/2024 CBC WITH DIFFE RENTI AL/PL ATELE T immature granulocytes 0 % notest ab. Not Available [facility] ([facility]) [address] [facility], [place], [address], 06/23/2024 13:12:39 06/12/20 24 06/13/2024 CBC WITH DIFFE RENTI AL/PL ATELE T immature grans (abs) 0.0 x10e3 /uL 0.0-0. 1 Not Available [facility] ([facility]) [address] [facility], [place], [address], 06/23/2024 13:12:39 06/12/20 24 06/13/2024 SEDIM ENTAT ION RATE- WESTE RGREN sedimentatio n rate-westerg andrey 48 mm/HR 0-40 above high normal Not Available [facility] ([facility]) [address] [facility], [place], [address], 06/23/2024 13:12:40 06/12/20 24 06/13/2024 RHEUM ATOID FACTO R (RF) rheumatoid factor (rf) <10.0 IU/mL <14.0 Not Available [facility] ([facility]) [address] [place], [address], 06/23/2024 13:12:41 06/12/20 24 06/13/2024 C-ZOEY CTIVE PROTE IN, QUANT C-reactive protein, quant 21 mg/L 0-10 above high normal Not Available [facility] ([facility]) [address] [place], [address], 06/23/2024 13:12:42 06/12/20 24 06/16/2024 URINE CULTU RE, ROUTI NE urine culture, routine Final report abnormal Not Available [facility] ([facility]) [address] [facility], [place], [address], 06/23/2024 13:12:44 06/12/20 24 06/16/2024 URINE CULTU [...] ng units per mL Not Available [facility] ([facility]) [address] [facility], [place], [address], 06/23/2024 13:12:44 06/12/20 24 06/16/2024 URINE CULTU RE, ROUTSantosh NE antimicrobia l susceptibili ty Commen t [...] thopr im/Villalobos lfa S Not Available [facility] ([facility]) [address] [facility], [place], [address], 06/23/2024 13:12:44 06/12/20 24 06/13/2024 TRIIO DOTHY CELESTINE E (T3), FREE triiodothyro nine (T3), free 3.5 pg/mL 2.0-4. 4 Not Available [facility] ([facility]) [address] [place], [address], 06/23/2024 13:12:44 06/12/20 24 06/13/2024 T4,FR EE(DI RECT) T4,free(dire ct) 1.41 NG/dL 0.82-1 .77 Not Available [facility] ([facility]) [address] [place], [address], 06/23/2024 13:12:46 06/12/20 24 06/13/2024 VITAM IN [...] um and D. Washi ng[place]: [facility] . 2. Nnamdi johnston MF, Deniz villegas [place], Abilio off-F rebeccaar i SANCHEZ, et al. Evalu ation , treat ment, and preve ntion of vitam in D defic iency : an Endoc rine Socie ty clini gretchen pract ice guide line. JCEM. 2010; 96(7) :1911 -30. Not Available [facility] ([facility]) [address], [place], [address], 06/23/2024 13:12:47 07/04/20 24 07/04/2024 Creat inine [Mass /volu me] in Blood creatinine [mass/volume ] in blood 0.86 mg/dL low: 0.7mg/ dLhigh : 1.2mg/ dL Creat inine POCT 0.86 0.70 - 1.20 mg/dL 07/04 4:14 PM SIGNS AND DISPLAYS SALES REPRESENTATIVE [facility] Not Available Not Available 09/25/2024 13:08:40 07/04/20 24 07/04/2024 Creat inine [Mass /volu me] in Blood glomerular filtration rate/1.73 sq M.predicted [volume rate/area] in serum, plasma or blood by creatinine-b ased formula (CKD-epi 2020) 73 text: >=90 mL/min /1.73 m2 low eGFR 73 (L) >=90 mL/mi n/1.7 3 m2 07/04 4:14 PM SIGNS AND DISPLAYS SALES REPRESENTATIVE [facility] Not Available Not Available [...] of ,00 0 indiv idual s at cades ge risk for color ectal cance r [...] asymp tomat ic indiv idual s at cades ge risk for color ectal cance r. Follo wing a negat min Colog uard resul t, the Ameri can Cance r Socie ty and U.S. Multi -Soci ety Task Force scree leonel guide lines recom mend a Colog uard re-sc reeni ng inter kenny of 3 years . [...] 112:1 016-1 030. TEST DESCR IPTIO N: [place] site algor ithmi c kaela sis of [...] years or older , who are at [facility] for color ectal cance r (CRC) . Colog uard has been appro shannon for use by the [place] FDA. The perfo rmanc e of Colog uard was estab lishe d in a cross secti onal study of [facility] adult s aged 50-84 . Colog uard perfo rmanc e in patie nts ages 45 to 49 years was estim ated by sub-g roup kaela sis of near- age group s. Colon oscop ies perfo rmed for a posit min resul t may find as the most clini kathy signi fican t lesio n: color ectal cance r [4.0% ], advan mkie adeno ma (incl uding sessi le markell eduardo polyp s great er than or equal to 1cm diame ter) [20%] or non- advan mike adeno ma [31%] ; or no color ectal neopl mary [45%] . These estim ates are deriv ed from a prosp ectiv e cross -sect ional scree leonel study of ,00 0 indiv idual s at [facility] risk for color ectal cance r who [...] at www.c keily rip.c om. Not Available [facility] (Cologuard Orders Only) [address], [place], [address], 07/24/2024 01:04:44 09/02/19 25 09/04/2024 Prote in S actua l/nor mal in Plate let poor plasm a by Coagu latio n assay protein S actual/oskar l in platelet poor plasma by coagulation assay 74 % low: 65%hig h: 129% PROTE IN S ACTIV ITY 74.0 65 - 129 % 09/04 10:11 AM SIGNS AND DISPLAYS SALES REPRESENTATIVE [facility] [...] 79 - 175 % 09/04 10:10 AM SIGNS AND DISPLAYS SALES REPRESENTATIVE [facility] [...] 82 - 139 % 09/02 11:54 PM SIGNS AND DISPLAYS SALES REPRESENTATIVE [facility] [...] 70-99 above high normal Not Available [facility] ([facility]) [address] [place], [address], 10/03/2024 09:08:14 10/02/19 25 10/03/2024 COMP. METAB OLIC PANEL (14) BUN 21 mg/dL 8-27 Not Available [facility] ([facility]) [address] [place], [address], 10/03/2024 09:08:14 10/02/19 25 10/03/2024 COMP. METAB OLIC PANEL (14) creatinine 1.18 mg/dL 0.57-1 .00 above high normal Not Available [facility] ([facility]) [address] [place], [address], 10/03/2024 09:08:14 10/02/19 25 10/03/2024 COMP. METAB OLIC PANEL (14) eGFR 50 mL/mi n/1.7 3 >59 below low normal Not Available [facility] ([facility]) [address] [facility], [place], [address], 10/03/2024 09:08:14 10/02/19 25 10/03/2024 COMP. METAB OLIC PANEL (14) BUN/creatini ne ratio 18 12-28 Not Available [facility] ([facility]) [address] [facility], [place], [address], 10/03/2024 09:08:14 10/02/19 25 10/03/2024 COMP. METAB OLIC PANEL (14) sodium 139 mmol/ L 134-14 4 Not Available [facility] ([facility]) [address] [facility], [place], [address], 10/03/2024 09:08:14 10/02/19 25 10/03/2024 COMP. METAB OLIC PANEL (14) potassium 4.1 mmol/ L 3.5-5. 2 Not Available [facility] ([facility]) [address] [facility], [place], [address], 10/03/2024 09:08:14 10/02/19 25 10/03/2024 COMP. METAB OLIC PANEL (14) chloride 101 mmol/ L 96-106 Not Available [facility] ([facility]) [address] [facility], [place], [address], 10/03/2024 09:08:14 10/02/19 25 10/03/2024 COMP. METAB OLIC PANEL (14) carbon dioxide, total 25 mmol/ L 20-29 Not Available [facility] ([facility]) [address] [facility], [place], [address], 10/03/2024 09:08:14 10/02/19 25 10/03/2024 COMP. METAB OLIC PANEL (14) calcium 9.4 mg/dL 8.7-10 .3 Not Available [facility] ([facility]) [address] [facility], [place], [address], 10/03/2024 09:08:14 10/02/19 25 10/03/2024 COMP. METAB OLIC PANEL (14) protein, total 7.6 g/dL 6.0-8. 5 Not Available [facility] ([facility]) [address] [facility], [place], [address], 10/03/2024 09:08:14 10/02/19 25 10/03/2024 COMP. METAB OLIC PANEL (14) albumin 4.2 g/dL 3.9-4. 9 Not Available [facility] ([facility]) [address] [facility], [place], [address], 10/03/2024 09:08:14 10/02/19 25 10/03/2024 COMP. METAB OLIC PANEL (14) globulin, total 3.4 g/dL 1.5-4. 5 Not Available [facility] ([facility]) [address] [facility], [place], [address], 10/03/2024 09:08:14 10/02/19 25 10/03/2024 COMP. METAB OLIC PANEL (14) bilirubin, total 0.7 mg/dL 0.0-1. 2 Not Available [facility] ([facility]) [address] [facility], [place], [address], 10/03/2024 09:08:14 10/02/19 25 10/03/2024 COMP. METAB OLIC PANEL (14) alkaline phosphatase 70 IU/L 44-121 Not Available [facility] ([facility]) [address] [facility], [place], [address], 10/03/2024 09:08:14 10/02/19 25 10/03/2024 COMP. METAB OLIC PANEL (14) AST (SGOT) 30 IU/L 0-40 Not Available [facility] ([facility]) [address] [facility], [place], [address], 10/03/2024 09:08:14 10/02/19 25 10/03/2024 COMP. METAB OLIC PANEL (14) ALT (SGPT) 22 IU/L 0-32 Not Available [facility] ([facility]) [address] [place], [address], 10/03/2024 09:08:14 10/02/19 25 10/03/2024 VITAM IN B12 vitamin B12 329 pg/mL 232-12 45 Not Available [facility] ([facility]) [address] [facility], [place], [address], 10/03/2024 09:08:16 10/02/19 25 10/03/2024 CBC WITH DIFFE RENTI AL/PL ATELE T WBC 6.1 x10e3 /uL 3.4-10 .8 Not Available [facility] ([facility]) [address] [facility], [place], [address], 10/03/2024 09:08:16 10/02/19 25 10/03/2024 CBC WITH DIFFE RENTI AL/PL ATELE T RBC 5.24 x10e6 /uL 3.77-5 .28 Not Available [facility] ([facility]) [address] [place], [address], 10/03/2024 09:08:16 10/02/19 25 10/03/2024 CBC WITH DIFFE RENTI AL/PL ATELE T hemoglobin 13.6 g/dL 11.1-1 5.9 Not Available [facility] ([facility]) [address] [place], [address], 10/03/2024 09:08:16 10/02/19 25 10/03/2024 CBC WITH DIFFE RENTI AL/PL ATELE T hematocrit 43.4 % 34.0-4 6.6 Not Available [facility] ([facility]) [address] [place], [address], 10/03/2024 09:08:16 10/02/19 25 10/03/2024 CBC WITH DIFFE RENTI AL/PL ATELE T MCV 83 fL 79-97 Not Available [facility] ([facility]) [address] [place], [address], 10/03/2024 09:08:16 10/02/19 25 10/03/2024 CBC WITH DIFFE RENTI AL/PL ATELE T MCH 26.0 pg 26.6-3 3.0 below low normal Not Available [facility] ([facility]) [address] [place], [address], 10/03/2024 09:08:16 10/02/19 25 10/03/2024 CBC WITH DIFFE RENTI AL/PL ATELE T MCHC 31.3 g/dL 31.5-3 5.7 below low normal Not Available [facility] ([facility]) [address] [place], [address], 10/03/2024 09:08:16 10/02/19 25 10/03/2024 CBC WITH DIFFE RENTI AL/PL ATELE T RDW 14.5 % 11.7-1 5.4 Not Available [facility] ([facility]) [address] [place], [address], 10/03/2024 09:08:16 10/02/19 25 10/03/2024 CBC WITH DIFFE RENTI AL/PL ATELE T platelets 181 x10e3 /uL 150-45 0 Not Available [facility] ([facility]) [address] [place], [address], 10/03/2024 09:08:16 10/02/19 25 10/03/2024 CBC WITH DIFFE RENTI AL/PL ATELE T neutrophils 57 % notest ab. Not Available [facility] ([facility]) [address] [place], [address], 10/03/2024 09:08:16 10/02/19 25 10/03/2024 CBC WITH DIFFE RENTI AL/PL ATELE T lymphs 33 % notest ab. Not Available [facility] ([facility]) [address] [place], [address], 10/03/2024 09:08:16 10/02/19 25 10/03/2024 CBC WITH DIFFE RENTI AL/PL ATELE T monocytes 7 % notest ab. Not Available [facility] ([facility]) [address] [facility], [place], [address], 10/03/2024 09:08:16 10/02/19 25 10/03/2024 CBC WITH DIFFE RENTI AL/PL ATELE T eos 2 % notest ab. Not Available [facility] ([facility]) [address] [facility], [place], [address], 10/03/2024 09:08:16 10/02/19 25 10/03/2024 CBC WITH DIFFE RENTI AL/PL ATELE T basos 1 % notest ab. Not Available [facility] ([facility]) [address] [place], [address], 10/03/2024 09:08:16 10/02/19 25 10/03/2024 CBC WITH DIFFE RENTI AL/PL ATELE T neutrophils (absolute) 3.5 x10e3 /uL 1.4-7. 0 Not Available [facility] ([facility]) [address] [place], [address], 10/03/2024 09:08:16 10/02/19 25 10/03/2024 CBC WITH DIFFE RENTI AL/PL ATELE T lymphs (absolute) 2.0 x10e3 /uL 0.7-3. 1 Not Available [facility] ([facility]) [address] [place], [address], 10/03/2024 09:08:16 10/02/19 25 10/03/2024 CBC WITH DIFFE RENTI AL/PL ATELE T monocytes(ab solute) 0.4 x10e3 /uL 0.1-0. 9 Not Available [facility] ([place] [facility]) [address] [facility], [place], [address], 10/03/2024 09:08:16 10/02/19 25 10/03/2024 CBC WITH DIFFE RENTI AL/PL ATELE T eos (absolute) 0.1 x10e3 /uL 0.0-0. 4 Not Available [facility] ([facility]) [address] [facility], [place], [address], 10/03/2024 09:08:16 10/02/19 25 10/03/2024 CBC WITH DIFFE RENTI AL/PL ATELE T baso (absolute) 0.0 x10e3 /uL 0.0-0. 2 Not Available [facility] ([facility]) [address] [facility], [place], [address], 10/03/2024 09:08:16 10/02/19 25 10/03/2024 CBC WITH DIFFE RENTI AL/PL ATELE T immature granulocytes 0 % notest ab. Not Available [facility] ([facility]) [address] [facility], [place], [address], 10/03/2024 09:08:16 10/02/19 25 10/03/2024 CBC WITH DIFFE RENTI AL/PL ATELE T immature grans (abs) 0.0 x10e3 /uL 0.0-0. 1 Not Available [facility] ([facility]) [address] [facility], [place], [address], 10/03/2024 09:08:16 09/08/19 25 09/08/2024 US, thyro id No observ ation record ed. [facility] [address], [place], [address], 09/09/2024 11:58:44 09/16/19 25 09/16/2024 MAMMO , scree leonel, digit al, bilat eral No observ ation record ed. [facility] [address] [place], [address], 09/25/2024 13:08:29 09/18/19 25 09/18/2024 fine needl e aspir ation , ultra sound guide d, thyro id (PROC ) No observ ation record ed. [address], [place], [address], 09/21/2024 09:45:02 09/18/19 25 09/18/2024 fine needl e aspir ation , ultra sound guide d, thyro id (PROC ) No observ ation record ed. [address], [place], [address], 09/20/2024 23:17:20 10/02/19 25 elect rocar diogr am No observ ation record ed. [facility] Internal Use Only DO Not Attach Compendium DO Not Attach Compendium, Do Not Delete/merge, [id number] 10/02/2024 11:52:34 10/02/19 25 10/02/2024 elect rocar diogr am No observ ation record ed. [facility] Order Internal Use Only DO Not Attach Compendium DO Not Attach Compendium, Do Not Delete/merge, [id number] 10/02/2024 11:59:11 10/06/19 25 10/06/2024 MAMMO , diagn ostic , unila teral No observ ation record ed. [facility] [address] [place], [address], 10/09/2024 14:46:12 10/06/19 25 10/06/2024 XR, chest No observ ation record ed. [facility] [address] [place], [address], 10/09/2024 11:22:04 11/20/19 25 11/19/2024 US, echoc ardio gram No observ ation record ed. [address], [place], [address], 12/01/2024 12:09:15 11/20/19 25 11/19/2024 PFT, compl ete No observ ation record ed. [facility] [address], [place], [address], 12/01/2024 12:09:15 Result Notes None recorded. Problems Name Problem SNOMED Code Status Onset Date Resolution Date Notes Provider Name and Address Organization Details Recorded Time Body mass index 40+ - severely obese 259769736 Active 2023 FREDDY [place]ques, [place] - [facility] 4 11:02:32 Morbid obesity 117432862 Active 2023 FREDDY [place] [facility] 4 11:02:33 Pain of joint 58378078 Active 2023 FREDDY [place] [facility] 4 11:02:34 Non-alcoho lic fatty liver 777173835 Active 2023 FREDDY [place] [facility] 4 11:02:34 Vitamin D deficiency 09093842 Active 2023 FREDDY [place] [facility] 4 11:02:35 Gastroesop hageal reflux disease without esophagiti s 471240839 Active 2023 FREDDY [place] [facility] 4 11:02:40 Serum vitamin B12 below reference range 695542254 Active 2023 FREDDY [place] [facility] 4 11:02:41 History of deep vein thrombosis 445415333 Active 2023 x3 according to patient never recommende d to be on chronic anticoagul ation saw hematologi st in past Demetrius Lew MD Attn: Puma osborne,[address] [facility], [place], [address], [place] - [facility] 4 17:58:06 Screening for malignant neoplasm of colon Active 2023 Raúl Grissom MA null, [facility] 4 11:04:36 Screening mammograph y Active 2023 Raúl Grissom MA null, [facility] 4 11:04:37 Polycystic ovary syndrome 016007984 Active 2023 Raúl Grissom MA null, [facility] 4 11:12:48 Thyroid nodule 959480730 Active 2024 Raúl Grissom MA null, [facility] 5 11:59:02 Problem Notes None recorded. Procedures Surgical History Date Name Laterality Status Provider Name and Address Organization Details Recorded Time 08/12/19 10 Gastrointestinal Surgery completed Yanci Virgen MA [facility] 06/12/2024 10:42:50 08/12/19 10 Hernia Repair completed Yanci Virgen [facility] 06/12/2024 10:43:20 08/12/18 99 Hernia Repair completed Yanci Virgen [facility] 06/12/2024 10:43:16 08/12/18 86 Gastric Bypass completed Yanci Virgen [facility] 06/12/2024 10:41:25 08/12/18 76 Cholecystectomy completed Yanci Virgen [facility] 06/12/2024 10:41:03 08/12/18 76 Gastrointestinal Surgery completed Yanci Virgen [facility] 06/12/2024 10:42:44 08/12/18 63 Tonsillectomy completed Yanci Virgen [facility] 06/12/2024 10:48:49 08/12/18 60 Tonsillectomy completed Yanci Param [facility] 06/12/2024 10:44:21 Imaging Results Imaging Date Name Status LastModified by Organization Details LastModified Time 09/08/2024 US, thyroid completed [facility] [address], [place], [address], 09/09/2024 11:58:44 09/16/2024 MAMMO, screening, digital, bilateral completed [facility] [address] [place], [address], 09/25/2024 13:08:29 09/18/2024 fine needle aspiration, ultrasound guided, thyroid (PROC) completed [address], [address], 09/21/2024 09:45:02 09/18/2024 fine needle aspiration, ultrasound guided, thyroid (PROC) completed [address], [address], 09/20/2024 23:17:20 10/02/2024 electrocardiogram completed [facility] Internal Use Only DO Not Attach Compendium DO Not Attach Compendium, Do Not Delete/merge, [id number] 10/02/2024 11:52:34 10/02/2024 electrocardiogram completed [facility] Order Internal Use Only DO Not Attach Compendium DO Not Attach Compendium, Do Not Delete/merge, [id number] 10/02/2024 11:59:11 10/06/2024 MAMMO, diagnostic, unilateral completed [facility] [address] [place], [address], 10/09/2024 14:46:12 10/06/2024 XR, chest completed [facility] [address] [place], [address], 10/09/2024 11:22:04 11/19/2024 US, echocardiogram completed [address], [address], 12/01/2024 12:09:15 11/19/2024 PFT, complete completed [address], [address], 12/01/2024 12:09:15 Procedure Notes None recorded. Medical Equipment None Reported. Allergies Allergen ID Allergen Name Allergen Category Reaction Reaction Severity Criticality Documentation Date Start Date Code Code System Note Provider Name and Address Organization Details Recorded Time 292145 Demerol medicatio n Not available Not available Not available 06/12/2024 29617 1 RxNorm Not Available Not Available Not Available 687606 shellfish derived food,medi cation Not available Not available Not available 06/12/2024 92829 UNK Not Available Not Available Not Available 767203 Naprosyn medicatio n Not available Not available Not available 06/12/2024 26662 2 RxNorm Not Available Not Available Not Available 893368 codeine medicatio n anaphylax is Not available high 06/12/20242002 2670 RxNorm Not Available Not Available Not Available 991757 Robaxin medicatio n Not available Not available Not available 06/12/2024 54573 5 RxNorm Not Available Not Available Not Available 557477 erythromy eitan medicatio n rash Not available high 06/12/20242008 4053 RxNorm Not Available Not Available Not Available 921256 latex environme nt,medica tion rash Not available high 06/12/20242008 [address]; andrea ids and condo ms Not Available Not Available Not Available 497158 Iodinated contrast media (substanc e) medicatio n Not available Not available Not available 10/02/2024 88994 2004 SNOMED Not Available Not Available Not Available 745740 iodine medicatio n Not available Not available Not available 10/02/20242021 5933 RxNorm unrec ogniz ed react ion (text : Unkno wn, code: [id number]) (from exter nal sourc e) Not Available Not Available Not Available 667248 lavender extract food Not available Not available Not available 10/02/2024 18175 67 RxNorm Not Available Not Available Not Available 116690 Coumadin medicatio n hives severe high 10/02/2024 81550 1 RxNorm Not Available Not Available Not [...] Updated DateTime 4 165.1 cm 53.8 kg/m2 606079. 13 g 88 /min 95 % 95 % 130 mm[Hg] 88 mm[Hg] Yanci Virgen MA [place] - [facility] 4 10:15:51 Date Recorded Body height Body mass index (BMI) Body weight Heart rate Oxygen saturation Oxygen saturation in Arterial blood by Pulse oximetry Systolic blood pressure Diastolic blood pressure Provider Name and Address Organization Details Last Updated DateTime 5 165.1 cm 54.1 kg/m2 968825. 6 g 94 /min 96 % 96 % 132 mm[Hg] 68 mm[Hg] Yanci Virgen MA [place] - [facility] 5 10:45:02 Social History Question Answer Notes LastModified by Organizat ion Details LastModified Time Tobacco Smoking Status Former Smoker [facility] 06/12/2024 10:18:40 Do You Have An [...] SNOMED-CT Code Diagnosis ICD10 Code Diagnosis Note [id number] MD Shani Hicks (Adult Med) [address] [place] [address] 06/12/2024 09:48:33 06/12/2024 11:00:39 Body mass index 40+ - severely obese 514569893 Z68.43 Morbid obesity 050005987 E66.01 Pain of joint 42571599 M 25.50 Non-alcoho lic fatty liver 124703143 K76.0 Vitamin D deficiency 347 06557 E55.9 Serum alondra min B12 below reference range 962219964 R79.89 Gastroesop hageal reflux disease without esophagitis 509832943 K21.9 Screening mammography 24 801868 Z12.31 Screening for malignant neoplasm of colon 028622969 Z12.11 History of deep vein thrombosis 991565006 Z86.718 Polycystic ovary syndrome 099599530 E28.2 Screening for cardiovascular system disease 929257279 Z13.6 Long-term drug therapy 979695364 Z79.891 Fatigue 23409344 R53.83 Abdominal pain 53157900 R10.9 Influenza vaccination declined 109300539 Z28.21 SARS-CoV-2 vaccination declined 9158965766 Z28.21 [id number] FREDDY Vasques (Adult Med) [address] [place] [address] 10/02/2024 10:17:39 10/02/2024 12:06:58 Body mass index 40+ - severely obese 032791261 Z68.43 Morbid obesity 678493063 E66.01 Dyspnea 592481735 R06.00 Skin lesion 71194954 L98 .9 Thyroid nodule 514596398 E04.1 Gastroesop hageal reflux disease without esophagitis 012284575 K21.9 Pain of joint 58521238 M 25.50 Non-alcoho lic fatty liver 368876576 K76.0 Health Concerns Section Related Observation LastModified [...] (MEDICARE - MEDICAID REPLACEMENT HMO) Ally Ayala [id number] Ally Ayala 10/02/2024 1 [employer] (MEDICARE REPLACEMENT HMO) Ally Ayala [id number] Ally Ayala 10/02/2024 2 [place]CON[place] WHEN MEDICARE OR MEDICARE REPLACEMENT PRIMARY) Ally Ayala [id number] Ally Ayala Notes Date Note Type Note [...] Lew MD Attn: Accounting,[address] [facility], [place], [address], [facility] - [facility] 06/13/2024 17:59:15 10/02/2024 text/html short of breath for many months that is not really getting any worse. No cough or wheezing no PND orthopnea or edema. Thyroid no nodule equivocal biopsy results. GERD denies nausea or vomiting joint pain comes and goes. States that she saw the graphics programmer positive BRIDGER she saw Rheumatology who felt she did not have any clinical rheumatological diagnosis. Down in her left groin she has a pigmented skin Raúl Grissom MA [facility], [place] - [facility] 10/05/2024 11:47:57 OBGyn Episode No OBEpisode recorded.
--- OUTSIDE RECORDS SUMMARY | 2024-12-07 11:25 | XMS_ITS | Encounter Summary ---
Author Organization [facility] Address [address] [place] [address] Care Team Providers Care Sql Server Dba Name Role Phone Martha Arriaga MD Primary Care Provid er Encounter Details Date Type Department Care Team ([facility] st Contact Info) Description 06/07/2004 Outpatient Historical [facility] Internal Medicine - [place] [address] [place] [phone] [place]ashawn Sal[place]ña [place] [address] [place] [address] Social History Tobacco Use Types Packs/Day Years Used Date Smoking Tobacco: Never Assessed Comments Unknown Sex and Gender Information Value Date Recorded Sex Assigned at Not on file 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
--- OUTSIDE RECORDS SUMMARY | 2024-12-07 11:25 | XMS_ITS | Encounter Summary ---
Author Organization [employer] [facility] Address 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
--- OUTSIDE RECORDS SUMMARY | 2024-12-07 11:25 | XMS_ITS | Encounter Summary ---
Author Organization [facility] Address [address] [place] [address] Care Team Providers Care Care Information Associate Name Role Phone Martha Arriaga MD Primary Care Provid er Encounter Details Date Type Department Care Team (Latest Contact Info) Description 11/30/2002 Outpatient Historical HIS [facility] CAPRICE Ferreira, John Wall MD NO ADDRESS ON FILE COAGULAT DEFECT NEC/NOS (Primary Dx) Social History Tobacco Use Types Packs/Day Years Used Date Smoking Tobacco: Never Assessed Comments Unknown Sex and Gender Information Value Date Recorded Sex Assigned at Not on file Legal Sex Female 3:23 AM ARCHITECTURAL PRACTICE MANAGER Gender Identity Not on file Sexual Orientation Not on file documented as of this encounter Plan of Treatment Not on file documented as of this encounter Visit Diagnoses Diagnosis Other and unspecified coagulation defects- Primary documented in this encounter Care Teams Care Information Associate Relationship Specialty Start Date End Date Martha Arriaga MD PCP - General Internal Medicine 05/10/20 documented as of this encounter
--- OUTSIDE RECORDS SUMMARY | 2024-12-07 11:25 | XMS_ITS | Encounter Summary ---
Author Organization [facility] Address [address] [place] [address] Care Team Providers Care Nurses Medical Assistants Phlebotomists Name Role Phone Martha Arriaga MD Primary Care Provid er Encounter Details Date Type Department Care Team (Late st Contact Info) Description 07/11/2004 Outpatient Historical [facility] - [facility] [address] [place] [address] [place] [address] [place] [address] Social History Tobacco Use Types Packs/Day Years Used Date Smoking Tobacco: Never Assessed Comments Unknown Sex and Gender Information Value Date Recorded Sex Assigned at Not on file Legal Sex Female 3:23 AM RN CLINICIAN Gender Identity Not on file Sexual Orientation Not on file documented as of this encounter Plan of Treatment Not on file documented as of this encounter Visit Diagnoses Not on filedocumented in this encounter Care Teams Nurses Medical Assistants Phlebotomists Relationship Specialty Start Date End Date Martha Arriaga MD PCP - General Internal Medicine 05/10/20 documented as of this encounter
--- OUTSIDE RECORDS SUMMARY | 2024-12-07 11:25 | XMS_ITS | Encounter Summary ---
Author Organization [facility] Address [address] [place] [address] Care Team Providers Care Shoveler Name Role Phone Martha Arriaga MD Primary Care Provid er Encounter Details Date Type Department Care Team (Late st Contact Info) Description 06/16/2004 Outpatient Historical [facility] - [facility] [address] [place] [address] Khris Simeon MD [address] [place] [address] Social History Tobacco Use Types Packs/Day Years Used Date Smoking Tobacco: Never Assessed Comments Unknown Sex and Gender Information Value Date Recorded Sex Assigned at Not on file Legal Sex Female 3:23 AM POCKET SETTER Gender Identity Not on file Sexual Orientation Not on file documented as of this encounter Plan of Treatment Not on file documented as of this encounter Visit Diagnoses Not on filedocumented in this encounter Care Teams Shoveler Relationship Specialty Start Date End Date Matrha Arriaga MD PCP - General Internal Medicine 05/10/20 documented as of this encounter
--- OUTSIDE RECORDS SUMMARY | 2024-12-07 11:25 | XMS_ITS | Encounter Summary ---
Author Organization [facility] Address [address] [place] [address] Care Team Providers Care Rag Washer Name Role Phone Martha Arriaga MD Primary Care Provid er Encounter Details Date Type Department Care Team (Late st Contact Info) Description 05/15/2004 Outpatient Historical [facility] Internal Medicine - [place] [address] [place] [phone] Lashawn Saldaña [place] [address] [place] [address] Social History Tobacco Use Types Packs/Day Years Used Date Smoking Tobacco: Never Assessed Comments Unknown Sex and Gender Information Value Date Recorded Sex Assigned at Not on file Legal Sex Female 3:23 AM PANEL MACHINE SETTER Gender Identity Not on file Sexual [...] on filedocumented in this encounter Care Teams Rag Washer Relationship Specialty Start Date End Date Martha Arriaga MD PCP - General Internal Medicine 05/10/20 documented as of this encounter
--- OUTSIDE RECORDS SUMMARY | 2024-12-07 11:25 | XMS_ITS ---
Author Organization [facility] Address [address] [place] [address] Phone Care Team Providers Care Cosmetic Sales Name Role Phone Noé Lew MD Primary Care Provider [phone] [facility] Status:Enrolled (Active) Start date:11/12/2024 Enrollment date:11/12/2024 Related social drivers of health:Social Connections, Alcohol Use, Tobacco Use, Financial Resource Strain, Depression, Stress, Physical Activity, Food Insecurity, Transportation Needs, Housing Stability, Utilities [facility] ([facility]) Continued Care and Services Coordination
--- OUTSIDE RECORDS SUMMARY | 2024-12-07 11:25 | XMS_ITS | Encounter Summary ---
Author Organization [facility] Address [address] [place] [address] Care Team Providers Care Machine Finisher Name Role Phone Martha Arriaga MD Primary Care Provid er Encounter Details Date Type Department Care Team (Latest Contact Info) Description 06/27/2004 Outpatient Historical [facility] W[facility] - [facility] [address] [place] [address] Luis Carlos Saldaña OPEN WOUND KNEE/LEG-COMPL (Primary Dx) Social History Tobacco Use Types Packs/Day Years Used Date Smoking Tobacco: Never Assessed Comments Unknown Sex and Gender Information Value Date Recorded Sex Assigned at Not on file Legal Sex Female 3:23 AM HOPPER OPERATOR Gender Identity Not on file Sexual Orientation Not on file documented as of this encounter Plan of Treatment Not on file documented as of this encounter Visit Diagnoses Diagnosis Open wound of knee, leg (except thigh), and ankle, complicated- Primary documented in this encounter Care Teams Machine Finisher Relationship Specialty Start Date End Date Martha Arriaga MD PCP - General Internal Medicine 05/10/20 documented as of this encounter
--- OUTSIDE RECORDS SUMMARY | 2024-12-07 11:25 | XMS_ITS | Encounter Summary ---
Author Organization [employer] Address [address] [place] [address] Care Team Providers Care Bridge Contractor Name Role Phone Martha Arriaga MD Primary [...] on file Legal Sex Female 3:23 AM APN Gender Identity Not on file Sexual Orientation Not on file documented as of this encounter Plan of Treatment Not on file documented as of this encounter Visit Diagnoses Diagnosis Contusion of knee- Primary documented in this encounter Care Teams Bridge Contractor Relationship Specialty Start Date End Date Martha Arriaga MD PCP - General Internal Medicine 05/10/20 documented as of this encounter
--- OUTSIDE RECORDS SUMMARY | 2024-12-07 11:25 | XMS_ITS | Encounter Summary ---
Author Organization [facility] Address [address] [place] [address] Care Team Providers Care Aperture Mask Etcher Name Role Phone Martha Arriaga MD Primary Care Provid er Encounter Details Date Type Department Care Team (Late st Contact Info) Description 09/20/1998 Outpatient Historical [facility] Internal Medicine Medical [place] [facility] [address] [facility] [address] [place] [address] Cheikh Tsang MD [address] [facility] [address] [place], [place] [id number] Social History Tobacco Use Types Packs/Day Years Used Date Smoking Tobacco: Never Assessed Comments Unknown Sex and Gender Information Value Date Recorded Sex Assigned at Not on file Legal Sex Female 3:23 AM WIRE DRAWING SETTER Gender Identity Not on file Sexual Orientation Not on file documented as of this encounter Plan of Treatment Not on file documented as of this encounter Visit Diagnoses Not on filedocumented in this encounter Care Teams Aperture Mask Etcher Relationship Specialty Start Date End Date Martha Arriaga MD PCP - General Internal Medicine 05/10/20 documented as of this encounter
--- OUTSIDE RECORDS SUMMARY | 2024-12-07 11:25 | XMS_ITS | Encounter Summary ---
Author Organization [facility] Address [address] [place] [address] Care Team Providers Care Restaurant Manager Name Role Phone Martha Arriaga MD Primary Care Provid er Encounter Details Date Type Department Care Team (Late st Contact Info) Description 06/18/1998 Outpatient Historical [facility] Internal Medicine [place] [address] [place] [address] Luis Carlos Watts MD [address] [place] [address] Social History Tobacco Use Types Packs/Day Years Used Date Smoking Tobacco: Never Assessed Comments Unknown Sex and Gender Information Value Date Recorded Sex Assigned at Not on file Legal Sex Female 3:23 AM BOLT LOADER Gender Identity Not on file Sexual Orientation Not on file documented as of this encounter Plan of Treatment Not on file documented as of this encounter Visit Diagnoses Not on filedocumented in this encounter Care Teams Restaurant Manager Relationship Specialty Start Date End Date Martha Arriaga MD PCP - General Internal Medicine 05/10/20 documented as of this encounter
--- OUTSIDE RECORDS SUMMARY | 2024-12-07 11:25 | XMS_ITS | Encounter Summary ---
Author Organization [employer] Address [address] [place] [address] Care Team Providers Care Dye House Vat Worker Name Role Phone Martha Arriaga MD Primary Care Provid er Encounter Details Date Type Department Care Team (Latest Contact Info) Description 03/20/2001 Outpatient Historical HIS [facility] CAPRICE Fields, Gerald Jensen MD [address] [place], [place] [id number] Infectious colitis, enteritis, and gastroenteritis (Primary Dx) Social History Tobacco Use Types Packs/Day Years Used Date Smoking Tobacco: Never Assessed Comments Unknown Sex and Gender Information Value Date Recorded Sex Assigned at Not on file Legal Sex Female 3:23 AM IDENTIFIER HORSE Gender Identity Not on file Sexual Orientation Not on file documented as of this encounter Plan of Treatment Not on file documented as of this encounter Visit Diagnoses Diagnosis Infectious colitis, enteritis, and gastroenteritis- Primary documented in this encounter Care Teams Dye House Vat Worker Relationship Specialty Start Date End Date Martha Arriaga MD PCP - General Internal Medicine 05/10/20 documented as of this encounter
--- OUTSIDE RECORDS SUMMARY | 2024-12-07 11:25 | XMS_ITS | Encounter Summary ---
Author Organization [employer] [facility] Address [address] [place] [address] Care Team Providers Care Litigation Attorney Name Role Phone Martha Arriaga MD Primary Care Provid er Encounter Details Date Type Department Care Team (Latest Contact Info) Description 06/13/2004 Outpatient Historical HIS [facility] [place] [address] [place] [address] HEMANGIOMA NEC (Primary Dx) Social History Tobacco Use Types Packs/Day Years Used Date Smoking Tobacco: Never Assessed Comments Unknown Sex and Gender Information Value Date Recorded Sex Assigned at Not on file Legal Sex Female 3:23 AM KINDERGARTNERS HELPER Gender Identity Not on file Sexual Orientation Not on file documented as of this encounter Plan of Treatment Not on file documented as of this encounter Visit Diagnoses Diagnosis Hemangioma of other sites- Primary documented in this encounter Care Teams Litigation Attorney Relationship Specialty Start Date End Date Martha Arriaga MD PCP - General Internal Medicine 05/10/20 documented as of this encounter
--- OUTSIDE RECORDS SUMMARY | 2024-12-07 11:25 | XMS_ITS | Encounter Summary ---
Author Organization [employer] Address [address] [place] [address] Care Team Providers Care Housing Coordinator Name Role Phone Martha Arriaga MD [...] file Legal Sex Female 3:23 AM SENIOR ACCOUNTANT Gender Identity Not on file Sexual Orientation Not on file documented as of this encounter Plan of Treatment Not on file documented as of this encounter Visit Diagnoses Diagnosis Effusion of lower leg joint- Primary documented in this encounter Care Teams Housing Coordinator Relationship Specialty Start Date End Date Martha Arriaga MD PCP - General Internal Medicine 05/10/20 documented as of this encounter
--- OUTSIDE RECORDS SUMMARY | 2024-12-07 11:25 | XMS_ITS | Encounter Summary ---
Author Organization [facility] Address [address] [place] [address] Care Team Providers Care Impregnator Helper Name Role Phone Martha Arriaga MD Primary Care Provid er Encounter Details Date Type Department Care Team (Late st Contact Info) Description 03/20/2001 Outpatient Historical [facility] Internal Medicine Medical [place] [facility] [address] [facility] [address] [place] [address] Cheikh Tsang MD [address] [facility] [address] [place], [place] [phone] Social History Tobacco Use Types Packs/Day Years Used Date Smoking Tobacco: Never Assessed Comments Unknown Sex and Gender Information Value Date Recorded Sex Assigned at Not on file Legal Sex Female 3:[address] SECURITY OFFICER Gender Identity Not on file Sexual Orientation Not on file documented as of this encounter Plan of Treatment Not on file documented as of this encounter Visit Diagnoses Not on filedocumented in this encounter Care Teams Impregnator Helper Relationship Specialty Start Date End Date Martha Arriaga MD PCP - General Internal Medicine 05/10/20 documented as of this encounter
--- OUTSIDE RECORDS SUMMARY | 2024-12-07 11:25 | XMS_ITS | Encounter Summary ---
Author Organization [facility] Address [address] [place] [address] Care Team Providers Care Site Engineer Name Role Phone Martha Arriaga MD Primary Care Provid er Encounter Details Date Type Department Care Team (Late st Contact Info) Description 06/19/2004 Outpatient Historical [facility] Hyperbaric and Wound Treatment [facility] - [facility] [address] [place] [address] Elisa Doshi NO ADDRESS ON FILE Social History Tobacco Use Types Packs/Day Years Used Date Smoking Tobacco: Never Assessed Comments Unknown Sex and Gender Information Value Date Recorded Sex Assigned at Not on file Legal Sex Female 3:23 AM RAW STOCK MACHINE LOADER Gender Identity Not on file Sexual Orientation Not on file documented as of this encounter Plan of Treatment Not on file documented as of this encounter Visit Diagnoses Not on filedocumented in this encounter Care Teams Site Engineer Relationship Specialty Start Date End Date Martha Arriaga MD PCP - General Internal Medicine 05/10/20 documented as of this encounter
--- OUTSIDE RECORDS SUMMARY | 2024-12-07 11:25 | XMS_ITS | Encounter Summary ---
Author Organization [employer] Address [address] [place] [address] Care Team Providers Care Restaurant Kitchen Manager Name Role Phone Martha Arriaga MD Primary Care Provid er Encounter Details Date Type Department Care Team (Latest Contact Info) Description 10/14/2002 Outpatient Historical [facility] Noé Lobato MD [address] [place] [address] CONTUSION OF KNEE (Primary Dx) Social History Tobacco Use Types Packs/Day Years Used Date Smoking Tobacco: Never Assessed Comments Unknown Sex and Gender Information Value Date Recorded Sex Assigned at Not on file Legal Sex Female 3:23 AM LINK TRAINER MECHANIC Gender Identity Not on file Sexual Orientation Not on file documented as of this encounter Plan of Treatment Not on file documented as of this encounter Visit Diagnoses Diagnosis Contusion of knee- Primary documented in this encounter Care Teams Restaurant Kitchen Manager Relationship Specialty Start Date End Date Martha Arriaga MD PCP - General Internal Medicine 05/10/20 documented as of this encounter
--- OUTSIDE RECORDS SUMMARY | 2024-12-07 11:25 | XMS_ITS | Encounter Summary ---
Author Organization [facility] Address [address] [place] [address] Care Team Providers Care Forms Analyst Name Role Phone Martha Arriaga MD Primary Care Provid er Encounter Details Date Type Department Care Team (Late st Contact Info) Description 06/17/2004 Outpatient Historical [facility] Trauma and General Surgery [address] [id number] [place] [address] [place] [address] Social History Tobacco Use Types Packs/Day Years Used Date Smoking Tobacco: Never Assessed Comments Unknown Sex and Gender Information Value Date Recorded Sex Assigned at Not on file Legal Sex Female 3:23 AM EPIC ANESTHESIA ANALYST Gender Identity Not on file Sexual Orientation Not on file documented as of this encounter Plan of Treatment Not on file documented as of this encounter Visit Diagnoses Not on filedocumented in this encounter Care Teams Forms Analyst Relationship Specialty Start Date End Date Martha Arriaga MD PCP - General Internal Medicine 05/10/20 documented as of this encounter
--- OUTSIDE RECORDS SUMMARY | 2024-12-07 11:25 | XMS_ITS | Encounter Summary ---
Author Organization [facility] Address [address] [place] [address] Care Team Providers Care Public Relations Intern Name Role Phone Martha Arriaga MD Primary Care Provid er Encounter Details Date Type Department Care Team (Latest Contact Info) Description 09/03/2002 Outpatient Historical [facility] [place] [place] [address] [place] [address] PERS HX CIRCULATORY DIS NEC (Primary Dx) Social History Tobacco Use Types Packs/Day Years Used Date Smoking Tobacco: Never Assessed Comments Unknown Sex and Gender Information Value Date Recorded Sex Assigned at Not on file Legal Sex Female 3:23 AM AIR TECHNICIAN Gender Identity Not on file Sexual Orientation Not on file documented as of this encounter Plan of Treatment Not on file documented as of this encounter Visit Diagnoses Diagnosis Personal history of other diseases of circulatory system- Primary documented in this encounter Care Teams Public Relations Intern Relationship Specialty Start Date End Date Martha Arriaga MD PCP - General Internal Medicine 05/10/20 documented as of this encounter
--- OUTSIDE RECORDS SUMMARY | 2024-12-07 11:25 | XMS_ITS | Encounter Summary ---
Author Organization [employer] Address [address] [place] [address] Care Team Providers Care Credit Collections Clerk Name Role Phone Martha Arriaga MD Primary Care Provid er Encounter Details Date Type Department Care Team (Latest Contact Info) Description 01/06/1999 Outpatient Historical [facility] CARDIOPULMONARY Cheikh Tsang MD [facility] [address] [place] [address] Pain in limb (Primary Dx) Social History Tobacco Use Types Packs/Day Years Used Date Smoking Tobacco: Never Assessed Comments Unknown Sex and Gender Information Value Date Recorded Sex Assigned at Not on file Legal Sex Female 3:23 AM RAMP MANAGER Gender Identity Not on file Sexual Orientation Not on file documented as of this encounter Plan of Treatment Not on file documented as of this encounter Visit Diagnoses Diagnosis Pain in limb- Primary documented in this encounter Care Teams Credit Collections Clerk Relationship Specialty Start Date End Date Martha Arriaga MD PCP - General Internal Medicine 05/10/20 documented as of this encounter
--- OUTSIDE RECORDS SUMMARY | 2024-12-07 11:25 | XMS_ITS | Encounter Summary ---
Author Organization [facility] Address [address] Attn: Epic Prelude ADT [place] [address] Care Team Providers Care Industrial Illuminating Engineer Name Role Phone Martha Arriaga MD Primary Care Provid er Encounter Details Date Type Department Care Team (Late st Contact Info) Description 09/30/2002 Outpatient Historical Social History Tobacco Use Types Packs/Day Years Used Date Smoking Tobacco: Never Assessed Comments Unknown Sex and Gender Information Value Date Recorded Sex Assigned at Not on file Legal Sex Female 3:23 AM ITALIAN TEACHER Gender Identity Not on file Sexual Orientation Not on file documented as of this encounter Plan of Treatment Not on file documented as of this encounter Visit Diagnoses Not on filedocumented in this encounter Care Teams Industrial Illuminating Engineer Relationship Specialty Start Date End Date Martha Arriaga MD PCP - General Internal Medicine 05/10/20 documented as of this encounter
--- OUTSIDE RECORDS SUMMARY | 2024-12-07 11:25 | XMS_ITS | Encounter Summary ---
Author Organization [facility] Address [address] [place] [address] Care Team Providers Care Material Handling Warehouse Supervisor Name Role Phone Martha Arriaga MD Primary Care Provid er Encounter Details Date Type Department Care Team (Latest Contact Info) Description 06/16/2004 Outpatient Historical [facility] [address] [place] [address] Luis Carlos Saldaña OPEN WOUND KNEE/LEG-COMPL (Primary Dx) Social History Tobacco Use Types Packs/Day Years Used Date Smoking Tobacco: Never Assessed Comments Unknown Sex and Gender Information Value Date Recorded Sex Assigned at Not on file Legal Sex Female 3:23 AM PAINTER CHASSIS Gender Identity Not on file Sexual Orientation Not on file documented as of this encounter Plan of Treatment Not on file documented as of this encounter Visit Diagnoses Diagnosis Open wound of knee, leg (except thigh), and ankle, complicated- Primary documented in this encounter Care Teams Material Handling Warehouse Supervisor Relationship Specialty Start Date End Date Martha Arriaga MD PCP - General Internal Medicine 05/10/20 documented as of this encounter
--- OUTSIDE RECORDS SUMMARY | 2024-12-07 11:25 | XMS_ITS | Data Portability ---
Author Organization [place] - [facility] [employer], Main Office Address [address] [place] [address] Care Team Providers Care Roof Foreman Name Role Phone DEMETRIUS MALIN Primary Care Provider Assessment No assessment recorded. Plan of Treatment Reminders Order Date Submit Date Provider Last Modified By Organization Details Last Modified Time Details Appointments None recorded. Lab noninvasive colorectal cancer DNA + occult blood screening, QL, stool 2022 023 [email or web address] [employer] (Cologuard Orders Only), [address], [address], [place], [address], 3 09:59:27 Referral pain management referral 2022 023 [email or web address] [address] [facility], [address], [facility] [address], [place], [address], 3 09:43:42 Procedures None recorded. Surgeries None recorded. Imaging MAMMO, screening, digital, bilateral 2022 023 [email or web address] [address] [facility], [address], [address], [place], [address], 3 09:20:23 DEXA 2022 023 [email or web address] [address] [facility], [address], [place], [address], 3 09:21:53 Medication Orders tramadol 50 mg tablet 2022 023 LISA [facility], [facility] [place], [address], 3 15:49:09 tizanidine 4 mg tablet 2022 023 [email or web address] [facility], [place], [address], 5 08:43:59 Flonase Allergy Relief 50 mcg/actuati on nasal spray,suspe nsion 2022 023 [email or web address] 1 [facility], [place], [address], 3 11:21:47 loratadine 10 mg tablet 2022 023 [email or web address] [facility], [place], [address], 5 08:43:18 Patient TargetsNo targets recorded. Patient Instructions Encounter Date Encounter Id Patient Instructions Last Modified By Organization Details Last Modified Time 12/31/2022 [id number] dementia rating scale-2* [email or web address] Not available 12/31/2022 15:49:00 care plan* [email or web address] Not available 12/11 15:49:01 multi-dimensiona l health assessment questionnaire* [email or web address] Not available 12/31/2022 15:49:00 advance directiv es: care instructions [email or web address] Not available 12/31/2022 15:49:00 [place] Advance Directives [email or web address] Not available 12/31/2022 15:49:00 advance care planning: care instructions [email or web address] Not available 12/31/2022 15:49:01 Personalized a lt [...] Positive Active diagnosis, Continue current treatment plan [email or web address] Not available 12/31/2022 15:53:25 10/22/2024 [id number] we discussed tot al thyroidectomy versus awaiting the further possible studies. [email or web address] Not available 10/22/2024 11:07:34 Reason for Referral Pain Management Referral for Degeneration of lumbar intervertebral disc Referring Physician: Robbi Lazaro, Family Medicine, Encounter Date: 05/21/2023 Results Created Date Observation Date Name Description Value Unit Range Abnormal Flag Note LastModifiedBy Organization Detail LastModifiedTime 12/31/19 24 12/31/2023 COLOG UARD cologuard result Cancel led - Order d not applic able Not Available [facility] (Cologuard Orders Only) [address], [place], [address], 12/31/2023 16:17:27 06/01/20 22 06/01/2022 urina lysis , dipst ick Leukocytes (reference range: negative kris/ l) Modera te Not Available [facility] [place] [address], [address], [address], 06/01/2022 16:51:15 06/01/20 22 06/01/2022 urina lysis , dipst ick Nitrite (reference rage: negative mg/dl) positi ve Not Available [facility], [address], 06/01/2022 16:51:15 06/01/20 22 06/01/2022 urina lysis , dipst ick Urobilinogen (reference range: 0.2-1 mg/dl) 1 Not Available Z_hr c_[address], [address], [address], 06/01/2022 16:51:15 06/01/20 22 06/01/2022 urina lysis , dipst ick Protein (reference range: negative mg/dl) 100 Not Available Z_hr c_[address], [address], 06/01/2022 16:51:15 06/01/20 22 06/01/2022 urina lysis , dipst ick pH (reference range: 5-7) 6.0 Not Available [facility], [address], 06/01/2022 16:51:15 06/01/20 22 06/01/2022 urina lysis , dipst ick Blood (reference range: negative Tim/ l) Modera te Not Available [facility], [address], [address], 06/01/2022 16:51:15 06/01/20 22 06/01/2022 urina lysis , dipst ick Specific [place] (reference range: 1.005-1.030) 1.020 Not Available [address], [address], [address], 06/01/2022 16:51:15 06/01/20 22 06/01/2022 urina lysis , dipst ick Ketone (reference range: negative mg/dl) Negati ve Not Available [address], [address], 06/01/2022 16:51:15 06/01/20 22 06/01/2022 urina lysis , dipst ick Bilirubin (reference range: negative mg/dl) Negati ve Not Available [address], [address], 06/01/2022 16:51:15 06/01/20 22 06/01/2022 urina lysis , dipst ick Glucose (reference range: negative mg/dl) Negati ve Not Available [address], [address], 06/01/2022 16:51:15 06/01/20 22 06/01/2022 urina lysis , dipst ick Appearance Clear Not Available [address], [address], 06/01/2022 16:51:15 06/01/20 22 06/01/2022 urina lysis , dipst ick Color Yellow Not Available [address], [address], 06/01/2022 16:51:15 06/04/20 22 05/12/2022 CT, abdom en + pelvi s, w/o contr ast No observ ation record ed. [id number] Not Available 10/11/2022 01:28:22 09/16/19 25 09/16/2024 imagi ng/di agnos tic resul t No observ ation record ed. [facility] [address] [place], [address], 09/16/2024 17:14:26 10/06/19 25 10/06/2024 imagi ng/di agnos tic resul t No observ ation record ed. [facility] [address] [place], [address], 10/06/2024 10:53:39 10/06/19 25 10/06/2024 imagi ng/di agnos tic resul t No observ ation record ed. [facility] Scheduling [address], [place], [address], 10/06/2024 14:37:27 Result Notes None recorded. Problems Name Problem SNOMED Code Status Onset Date Resolution Date Notes Provider Name and Address Organization Details Recorded Time Cobalamin deficiency 960306958 Active 2021 Not Available [facility] 3 01:25:45 Mixed anxiety and depressive disorder 008588909 Active 2021 Not Available [facility] 3 01:25:46 Polycystic ovary syndrome 563579373 Active 2021 Not Available [employer] 3 01:25:46 Thyroid nodule 062584251 Active 2021 Not Available [employer] 3 01:25:46 Gastroesop hageal reflux disease without esophagiti s 451001012 Active 2021 Not Available [employer] 3 01:25:46 Vitamin D deficiency 56563743 Active 2021 Not Available [employer] 3 01:25:46 Urine EDDP level Active 2021 Not Available [facility] 3 01:25:46 Essential hypertensi on 07937075 Active 2021 Not Available [facility] 3 01:25:46 Polydactyl y of biphalange al thumb 051718016 Active 2021 Not Available [facility] 3 01:25:46 Kidney stone 81392339 Active 2021 Not Available [facility] 3 01:25:47 Degenerati on of lumbar interverte bral disc 63623270 Active 2022 TRE Luz [address], [address], [place], [address] , [employer] [facility] [employer] [facility] 3 15:09:02 Bilateral osteoarthr itis of knees 0965951616554 07 Active 2022 TRE Luz [address], [address], [place], [address] , [employer] [facility] [employer] [facility] 3 15:09:55 Seasonal allergy 981951511 Active 2022 TRE Luz [address], [address], [place], [address] , [employer] [facility] [employer] [facility] 3 15:18:18 Decreased renal function 96093385 Active 2022 SHAYAN Badillo [address], [address], [place], [address] , [employer] [facility] [place] [facility] 3 10:07:40 Spasm 85456945 Active 2022 SABINO Badillo-C [address], [address], [place], [address] , [employer] [place] [employer] [facility] 3 10:09:00 Multinodul ar goiter 872625683 Active 2024 Jerzy Banks MD [address], [address], [place], [address] , [employer] [facility] 5 11:07:14 Problem Notes None recorded. Procedures Surgical History Date Name Laterality Status Provider Name and Address Organization Details Recorded Time 01/01/20 Medicare Wellness CPT Code, Initial completed TRE Luz [address], [facility] [address], [place], [address], [facility] [employer] 12/31/2022 14:21:06 Cholecystectomy completed Not Available [facility] 10/11/2022 01:24:03 repair of umbilical hernia completed Not Available [facility] 10/11/2022 01:24:03 tonsillectomy completed Dahiana Patino RN [facility] [employer] 10/22/2024 10:44:35 Removal of adenoids completed Dahiana Patino RN [facility] [employer] [facility] 10/22/2024 10:44:45 Imaging Results Imaging Date Name Status LastModified by Organiz ation Details LastModified Time 05/12/2022 CT, abdomen + pelvis, w/o contrast completed [id number] Information not available 10/11/2022 01:28:22 09/16/2024 imaging/diagn ostic result active [facility] [address] [place], [address], 09/16/2024 17:14:26 10/06/2024 imaging/diagn ostic result active [facility] [address] [place], [address], 10/06/2024 10:53:39 10/06/2024 imaging/diagn ostic result active [facility] Scheduling [address] [place], [address], 10/06/2024 14:37:27 Procedure Notes None recorded. Medical Equipment None Reported. Allergies Allergen ID Allergen Name Allergen Category Reaction Reaction Severity Criticality Documentation Date Start Date Code Code System Note Provider Name and Address Organization Details Recorded Time 72816 robenacox ib Not available Not available Not available Not available 10/11/2022 48076 03 RxNorm Not Available [facility] 01:28:09 81853 naproxen medicatio n Not available Not available Not available 10/11/2022 7258 RxNorm Not Available [facility] 3 01:28:09 56112 lavender extract food Not available Not available Not available 10/11/2022 44203 67 RxNorm Not Available [facility] 3 01:28:09 33642 latex environme nt,medica tion rash Not available Not available 10/11/2022 71700 91 RxNorm Not Available [facility] 3 01:28:09 22448 Iodinated contrast media (substanc e) medicatio n Not available Not available Not available 10/11/2022 25545 2004 SNOMED Not Available [facility] 3 01:28:09 68902 Demerol medicatio n Not available Not available Not available 10/11/2022 65106 1 RxNorm Not Available [facility] 3 01:28:09 14600 codeine medicatio n Not available Not available Not available 10/11/2022 2670 RxNorm Not Available [facility] 3 01:28:09 23477 Coumadin medicatio n hives Not available Not available 10/22/2024 07054 1 RxNorm Dahiana Patino RN null, [place] [facility] [employer] 5 08:45:11 28931 erythromy eitan medicatio n rash Not available Not available 10/22/2024 4053 RxNorm Dahiana Patino RN null, [place] [facility] [employer] 5 08:45:28 42917 shellfish derived food,medi cation Not available Not available Not available 10/22/2024 28971 UNK Dahiana Patino RN null, [place] [facility] [employer] 5 08:45:58 Medications Name Sig Start Date Stop Date Status Note LastModified by Organization Details LastModified Time fluoxetine 40 mg capsule TAKE 1 CAPSULE DAILY 10/22 completed Not Available Not Available Not Available cyclobenzap rine 10 mg tablet TAKE 1 TABLET 3 TIMES A DAY 10/22 completed Not Available Not Available Not Available bupropion HCl SR 150 mg tablet,12 hr sustained-r elease TAKE 1 TABLET TWICE A DAY 10/22 completed Not Available Not Available Not Available IBU 800 mg tablet Take 1 tablet 3 times a day by oral route as needed. active Not Available Not Available No t Available tizanidine 4 mg tablet Take 1 tablet every 8 hours by oral route as needed for 90 days. 10/22 completed Not Available Not Available Not Available hydrocodone 5 mg-acetamin ophen 325 mg tablet Take 1 tablet every 6 hours by oral route as needed for 7 days. active Not Available Not Available No t Available methylpredn isolone 32 mg tablet TAKE 1 TABLET BY MOUTH 12 HOURS BEFORE CAT SCAN, THEN TAKE 1 TABLET BY MOUTH 2 HOURS BEFORE CAT SCAN 10/22 completed Not Available Not Available Not Available ciprofloxac in 500 mg tablet TAKE 1 (ONE) TABLET BY MOUTH 2 TIMES DAILY FOR 3 DAYS 12/31 completed Not Available Not Available Not Available tramadol 50 mg tablet TAKE 1 TABLET EVERY 8 HOURSAS NEEDED 2023 active Not Available Not Available Not Avai lable ketorolac 0.5 % eye drops INSTILL 1 DROP INTO SURGICAL EYE 3 TIMES DAILY FOR 3 WEEKS AFTER SURGERY active Not Available Not Available No t Available prednisolon e acetate 1 % eye drops,suspe nsion INSTILL 1 DROP INTO SURGICAL EYE 3 TIMES DAILY FOR 3 WEEKS.STA RT 4 HOURS AFTER SURGERY active Not Available Not Available No t Available tamsulosin 0.4 mg capsule TAKE 1 (ONE) CAPSULE BY MOUTH AT BEDTIME FOR 14 DAYS 10/22 completed Not Available Not Available Not Available doxycycline monohydrate 100 mg capsule TAKE 1 CAPSULE BY MOUTH EVERY 12 HOURS FOR 10 DAYS 04/06 completed Not Available Not Available Not Available flunisolide 25 mcg (0.025 %) nasal spray USE 2 SPRAYS IN EACH NOSTRIL TWICE DAILY 10/22 completed Not Available Not Available Not Available [...] No t Available prednisone 50 mg tablet 10/22 completed Not Available Not Available Not Available furosemide 20 mg tablet TAKE 1 TABLET DAILY active Not Available Not Available No t Available ergocalcife rol (vitamin D2) 1,250 mcg (50,000 unit) capsule TAKE 1 CAPSULE WEEKLY 10/22 completed Not Available Not Available Not Available albuterol sulfate HFA 90 mcg/actuati on aerosol inhaler USE 2 INHALATIO NS ORALLY EVERY 4 HOURS NEEDED FORWHEEZI NG 10/22 completed Not Available Not Available Not Available oxybutynin chloride 5 mg tablet 10/22 completed Not Available Not Available Not Available cefdinir 300 mg capsule TAKE 1 CAPSULE BY MOUTH EVERY 12 HOURS FOR 7 DAYS 06/01 completed Not Available Not Available Not Available topiramate 100 mg tablet Take 1 tablet twice a day by oral route for 90 days. 10/22 completed Not Available Not Available Not Available loratadine 10 mg tablet Take 1 tablet every day by oral route. 10/22 completed Not Available Not Available Not Available azithromyci n 500 mg tablet TAKE 1 TABLET BY MOUTH DAILY FOR 5 DAYS 04/06 completed Not Available Not Available Not Available moxifloxaci n 0.5 % eye drops INSTILL 1 DROP INTO SURGICAL EYE 3 TIMES DAILY,STA RT 1 DAY BEFORE & CONTINUE 1 WEEK AFTER SURGERY active Not Available Not Available No t Available Tylenol 8 Hour 650 mg tablet,exte nded release Take 2 tablets every 8 hours by oral route as needed for 90 days. 10/22 completed Not Available Not Available Not Available nitrofurant oin monohydrate /macrocryst als 100 mg capsule TAKE 1 CAPSULE BY MOUTH TWICE A DAY FOR 5 DAYS active Not Available Not Available No t Available Vitamin D3 10/22 completed Not Available Not Available Not Available omeprazole 20 mg tablet,pool yed release Take 1 tablet every day by oral route for 90 days. 10/22 completed Not Available Not Available Not Available Banophen 50 mg capsule TAKE 1 CAPSULE BY MOUTH 2 HOURS BEFORE CAT SCAN 10/22 completed Not Available Not Available Not Available Flonase Allergy Relief 50 mcg/actuati on nasal spray,suspe nsion [place] 1 spray every day by intranasa l [...] [degF] 148 mm[Hg] 96 mm[Hg] Not Available [facility] 3 01:24:53 Date Recorded Oxygen saturation Oxygen saturation in Arterial blood by Pulse oximetry Heart rate Body temperature Body weight Systolic blood pressure Diastolic blood pressure Provider Name and Address Organization Details Last Updated DateTime 2 98 % 98 % 115 /min 98.1 [degF] 315967. 53 g 146 mm[Hg] 82 mm[Hg] Not Available [facility] 3 01:24:53 Date Recorded Body height Body mass index (BMI) Body weight Body temperature Heart rate Oxygen saturation Oxygen saturation in Arterial blood by Pulse oximetry Systolic blood pressure Diastolic blood pressure Provider Name and Address Organization Details Last Updated DateTime 3 167.64 cm 49.7 kg/m2 775401. 45 g 97.6 [degF] 83 /min 97 % 97 % 136 mm[Hg] 84 mm[Hg] Le calhoun CMA [employer] 3 14:45:25 Date Recorded Body height Body mass index (BMI) Body weight Body temperature Heart rate Oxygen saturation Oxygen saturation in Arterial blood by Pulse oximetry Systolic blood pressure Diastolic blood pressure Provider Name and Address Organization Details Last Updated DateTime 3 167.64 cm 49.4 kg/m2 265062. 27 g 96.4 [degF] 100 /min 94 % 94 % 170 mm[Hg] 100 mm[Hg] Wilda Addison RN [facility] 3 09:46:27 Date Recorded Body weight Body mass index (BMI) Body height Body temperature Provider Name and Address Organization Details Last Updated DateTime 10/22/2024 224321.52 g 54.1 kg/m2 165.1 cm 97.5 [degF] Dahiana Patino RN [facility] [employer] 10/22/2024 10:47:03 Social History Question Answer Notes LastModified by Organizat ion Details LastModified Time Tobacco Smoking Status Former Smoker QUIT 12 YEARS AGO Dahiana Patino RN [facility], [place] [facility] [employer] [facility] 10/22/2024 10:44:17 What Is Your Level Of Alcohol Consumption? None [id number] Information not available 10/11/2022 What Is Your Level Of Caffeine Consumption? None [id number] Information not available 10/11/2022 In The 14 Days Before Symptom Onset, Have You Had Close Contact With A Laboratory-confir med COVID-19 While That Case Was Ill? No [id number] Information not available 10/11/2022 In The 14 Days Before Symptom Onset, Have You Had Close Contact With A Person Who Is Under Investigation For COVID-19 While That Person Was Ill? No [id number] Information not available 10/11/2022 What Type Of Diet Are You Following? REGULAR [id number] Information not available 10/11/2022 Do You Use Any Illicit Or Recreational Drugs? No [id number] Information not available 10/11/2022 Has Tobacco Cessation Counseling Been Provided? No [id number] Information not available 10/11/2022 Do You Have Any Dietary Restrictions? No [id number] Information not available 10/11/2022 Do You Or Have You Ever Used Any Other Forms Of Tobacco Or Nicotine? No [id number] Information not available 10/11/2022 Sex: Unknown Functional Status Question Answer Note LastModified by Organizat ion Details LastModified Time What is your exercise level? None [id number] Information not available 10/11/2022 Mental Status None recorded. Family History Nothing Reported Notes:NIECE: HASHIMOTOS Medical History Condition Response ARTHRITIS Y KIDNEY STONES Y HEARTBURN / REFLUX Y HIGH CHOLESTEROL / HYPERLIPIDEMIA Y BLOOD CLOTS Y HEPATITIS / LIVER DISEASE Y CATARACTS Y DEPRESSION (INCLUDING POST ) Y HYPERTENSION Y ANEMIA/BLOOD DISORDER Y Gynecological History Statement/Question Response Sexually Active? N Menses Monthly N STIs/STDs N Current Control Method Menopause Breast Problems no Discharge no Obstetrics History GPAL:G 0 P 0 0 0 0 Past Encounters Encounter ID Performer Location Encounter Start Date Encounter Closed Date Diagnosis/Indication Diagnosis SNOMED-CT Code Diagnosis ICD10 Code Diagnosis Note [id number] [facility] [address] [place] [address] 04/06/2022 00:00:00 04/06/2022 13:30:35 [id number] [facility] Care Martha lopez [address] [facility] [address] [place] [address] 05/21/2022 00:00:00 05/21/2022 12:44:09 [id number] [facility] [place] [address] [place] [address] 06/01/2022 00:00:00 06/01/2022 17:42:27 [id number] TRE Luz [facility] Primary Care Martha lopez [address] [facility] [address] [place] [address] 12/31/2022 14:34:56 12/31/2022 15:30:54 Adult health examination 100665624 Z00.00 Labs completed 04/06/22. Recommende d routine eye exams and dental cleanings. Shingles vaccine- recommende d; declinesPn eumonia vaccine- recommende d declines; declinesFl u vaccine- recommende d; declinesTe tanus vaccine- up to date per patient, approx. 5 years ago Colonoscop y- declines; cologuard a few years agoMammogr am- ordered todayDEXA- ordered today Screening for disorder 114251782 Z13.9 Screening for malignant neoplasm of colon 346291547 Z12.11 Screening mammography 24 252693 Z12.31 Screening for osteoporosis 789946409 Z13.820 Degenerati on of lumbar intervertebral disc 02071060 M51.36 She did not follow-up with Dr. [...] trial of tizanidine . She is wanting detention pain control. Advised we can try tramadol but if this is not enough her only option will be to go back to pain management for manager intermediate pain management . She expresses understand ing. Bilateral osteoarthritis of knees 2997972751 58411 M17.0 Recommende d she follow-up with orthopedic s, but she declines at this time. She is not interested in injections or any replacemen ts at this time. Seasonal allergy 5024007 04 J30.2 [id number] SABINO Badillo-Gage [facility] Primary Care Martha lopez [address] [facility] [address] [place] [address] 05/21/2023 09:39:50 05/21/2023 11:28:37 Decreased renal function 98979767 R94.4 currently has drain to right kidney-con tinues to drain more than 5cc/day, yellow/ser ous fluidUrolo gy Dr. Janny Schmidt continues to followPlan s to have interventi onal radiology f/u in the near future-cur rently not scheduled Degenerati on of lumbar intervertebral disc 26007737 M51.36 Her back is her biggest issuepain currently rated at 8, treats with tylenol, ibuprofen, and tramadolRO M and strength are both decreasedR elies on both of her sons for help with ADL's [id number] Jerzy Banks MD [facility] E[facility] [place] [address] [place] [address] 10/22/2024 10:24:35 10/26/2024 13:30:24 Multinodular goiter 548444511 E04.2 Health Concerns Section Related Observation LastModified by [...] (MEDICARE - MEDICAID REPLACEMENT HMO) Ally Ayala [id number] Ally Ayala 05/21/2023 1 [employer] BETTER HE[employer] - PREMIER PLAN - DUAL (MEDICARE - MEDICAID REPLACEMENT HMO) Ally Ayala [id number] Ally Ayala 10/22/2024 1 [employer] (MEDICARE REPLACEMENT HMO) Ally Ayala [id number] Ally Ayala Notes Date Note Type Note Provider Name and Address Organization Details Recorded Time 12/31/2022 text/html Pt. here for medicare wellness.She is followed by urology (Dr. Schmidt). She stopped the topiramate because her urologist wanted her to stop it because it can cause worsening kidney stone. TRE Luz [address], [address], [place], [address], [employer] 12/31/2022 15:53:50 05/21/2023 text/html Pt is here for f/u and referral to pain management SHAYAN Badillo [address] [facility] [address], [place], [address], [employer] 05/21/2023 10:33:34 10/22/2024 text/html this patient has a 20 year history of thyroid nodules. She reports that recently they have grown on ultrasound and she had a right TI-RADS 4 nodule measuring 2 cm and a left TI-RADS 3 nodule measuring 2.7 cm. These were both biopsied and were indeterminate. She reports that she believes that the specimens were sent off to a 2nd lab. These results are not available this morning Jerzy Bnaks MD [address], [address], [place], [address], [employer] 10/22/2024 11:07:57 OBGyn Episode No OBEpisode recorded.
--- OUTSIDE RECORDS SUMMARY | 2024-12-07 11:25 | XMS_ITS | Encounter Summary ---
Author Organization [facility] Address [address] [place] [address] Care Team Providers Care Hot Billet Shear Operator Name Role Phone Martha Arriaga MD Primary Care Provid er Encounter Details Date Type Department Care Team (Late st Contact Info) Description 10/30/2001 Outpatient Historical [facility] Internal Medicine Medical [place] [facility] [address] [facility] [address] [place] [phone] Cheikh Tsang MD [address] 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
--- OUTSIDE RECORDS SUMMARY | 2024-12-07 11:25 | XMS_ITS | Encounter Summary ---
Author Organization [facility] Address [address] [place] [address] Care Team Providers Care Correctional Counselor/Case Manager Name Role Phone Martha Arriaga MD Primary Care Provid er Encounter Details Date Type Department Care Team (Late st Contact Info) Description 06/27/2004 Outpatient Historical [facility] [address] [place] [phone] [place] [address] [place] [phone] Social History Tobacco Use Types Packs/Day Years Used Date Smoking Tobacco: Never Assessed Comments Unknown Sex and Gender Information Value Date Recorded Sex Assigned at Not on file Legal Sex Female 3:23 AM ALUMNI SECRETARY Gender Identity Not on file Sexual Orientation Not on file documented as of this encounter Plan of Treatment Not on file documented as of this encounter Visit Diagnoses Not on filedocumented in this encounter Care Teams Correctional Counselor/Case Manager Relationship Specialty Start Date End Date Martha Arriaga MD PCP - General Internal Medicine 05/10/20 documented as of this encounter
--- OUTSIDE RECORDS SUMMARY | 2024-12-07 11:25 | XMS_ITS | Encounter Summary ---
Author Organization [employer] Address [address] [place] [address] Care Team Providers Care Rn Perinatal Name Role Phone Martha Arriaga MD Primary [...] on file Legal Sex Female 3:23 AM RECORDIST Gender Identity Not on file Sexual Orientation Not on file documented as of this encounter Plan of Treatment Not on file documented as of this encounter Visit Diagnoses Diagnosis Other chronic nonalcoholic liver disease- Primary documented in this encounter Care Teams Rn Perinatal Relationship Specialty Start Date End Date Martha Arriaga MD PCP - General Internal Medicine 05/10/20 documented as of this encounter
--- OUTSIDE RECORDS SUMMARY | 2024-12-07 11:25 | XMS_ITS | Clinical Summary ---
Author Organization [employer] [facility] [address] Address [address] [place] [address] Phone Care Team Providers Care Brine Tank Tender Name Role Phone Martha Arriaga MD [...] on file Legal Sex Female 3:23 AM SERVICE INSPECTOR Gender Identity Not on file Sexual [...] 10:49 AM HISTORY: Routine screening. DICTATION LOCATION: [facility] TECHNIQUE: Full-field digital craniocaudal and mediolateral oblique [...] Most Recently Relevant to Health Maintenance Insurance [facility] [id number] Care Teams Brine Tank Tender Relationship Specialty Start Date End Date Martha Arriaga MD PCP - General Internal Medicine 05/10/20
--- OUTSIDE RECORDS SUMMARY | 2024-12-07 11:25 | XMS_ITS | Encounter Summary ---
Author Organization [email or web address] Address [address] [place] [address] Care Team Providers Care Body Man Name Role Phone Martha Arriaga MD Primary Care Provid er Encounter Details Date Type Department Care Team (Latest Contact Info) Description 11/02/2002 Outpatient Historical [facility] CAPRICE Saldaña, Luis Carlos BLOOD DISEASES NEC (Primary Dx) Social History Tobacco Use Types Packs/Day Years Used Date Smoking Tobacco: Never Assessed Comments Unknown Sex and Gender Information Value Date Recorded Sex Assigned at Not on file Legal Sex Female 3:23 AM GUIDE ESCORT Gender Identity Not on file Sexual Orientation Not on file documented as of this encounter Plan of Treatment Not on file documented as of this encounter Visit Diagnoses Diagnosis Other blood disease- Primary Other specified diseases of blood and blood-forming organs documented in this encounter Care Teams Body Man Relationship Specialty Start Date End Date Martha Arriaga MD PCP - General Internal Medicine 05/10/20 documented as of this encounter
--- OUTSIDE RECORDS SUMMARY | 2024-12-07 11:25 | XMS_ITS | Encounter Summary ---
Author Organization [email or web address] Address [address] [place] [address] Care Team Providers Care Clinical Dietitian Name Role Phone Martha Arriaga MD Primary Care Provid er Encounter Details Date Type Department Care Team (Late st Contact Info) Description 05/08/2004 Outpatient Historical [facility] Bernard Mcmillan MD [address] [place], [place] [phone] Er, Authorized P NO ADDRESS ON FILE SPRAIN OF NECK (Primary Dx) Social History Tobacco Use Types Packs/Day Years Used Date Smoking Tobacco: Never Assessed Comments Unknown Sex and Gender Information Value Date Recorded Sex Assigned at Not on file Legal Sex Female 3:23 AM CHARTER BOAT OPERATOR Gender Identity Not on file Sexual Orientation Not on file documented as of this encounter Plan of Treatment Not on file documented as of this encounter Visit Diagnoses Diagnosis Sprain of neck- Primary documented in this encounter Care Teams Clinical Dietitian Relationship Specialty Start Date End Date Martha Arriaga MD PCP - General Internal Medicine 05/10/20 documented as of this encounter
--- OUTSIDE RECORDS SUMMARY | 2024-12-07 11:25 | XMS_ITS ---
Author Organization [facility] Address [address] [place] [address] Phone Care Team Providers Care Rn Testing Name Role Phone Noé Lew MD Primary Care Provider [phone] [facility] Service Episode Status:Identified (Enrolling) Start date:11/12/2024 Related program episode:[facility] (Active) Continued Care and Services Coordination
--- OUTSIDE RECORDS SUMMARY | 2024-12-07 11:25 | XMS_ITS | Encounter Summary ---
Author Organization [employer] [facility] Address [address] [place] [address] Care Team Providers Care Laborer Tanbark Name Role Phone Martha Arriaga MD Primary Care Provid er Encounter Details Date Type Department Care Team (Latest Contact Info) Description 07/12/2003 Outpatient Historical HIS [facility] CAPRICE Saldaña, Luis Carlos SIMMONS W MANIF NEC ADULT ([facility]) (Primary Dx) Social History Tobacco Use Types Packs/Day Years Used Date Smoking Tobacco: Never Assessed Comments Unknown Sex and Gender Information Value Date Recorded Sex Assigned at Not on file Legal Sex Female 3:23 AM MAINTENANCE AND ENGINEERING MANAGER Gender Identity Not on file Sexual Orientation Not on file documented as of this encounter Plan of Treatment Not on file documented as of this encounter Visit Diagnoses Diagnosis 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
--- OUTSIDE RECORDS SUMMARY | 2024-12-07 11:25 | XMS_ITS | Encounter Summary ---
Author Organization [facility] Address [address] [place] [address] Care Team Providers Care Intern Retail Name Role Phone Martha Arriaga MD Primary Care Provid er Encounter Details Date Type Department Care Team (Latest Contact Info) Description 06/19/2004 Outpatient Historical [facility] [address] [place] [address] Luis Carlos Saldaña OPEN WOUND [...] Primary documented in this encounter Care Teams Intern Retail Relationship Specialty Start Date End Date Martha Arriaga MD PCP - General Internal Medicine 05/10/20 documented as of this encounter
--- OUTSIDE RECORDS SUMMARY | 2024-12-07 11:25 | XMS_ITS | Encounter Summary ---
Author Organization [facility] Address [address] [place] [address] Care Team Providers Care Racehorse Trainer Name Role Phone Martha Arriaga MD Primary Care Provid er Encounter Details Date Type Department Care Team (Late st Contact Info) Description 12/22/2004 Outpatient Historical [facility] [address] [place] [phone] [place] [address] [place] [address] Social History Tobacco Use Types Packs/Day Years Used Date Smoking Tobacco: Never Assessed Comments Unknown Sex and Gender Information Value Date Recorded Sex Assigned at Not on file Legal Sex Female 3:23 AM SETTER UP Gender Identity Not on file Sexual Orientation Not on file documented as of this encounter Plan of Treatment Not on file documented as of this encounter Visit Diagnoses Not on filedocumented in this encounter Care Teams Racehorse Trainer Relationship Specialty Start Date End Date Martha Arriaga MD PCP - General Internal Medicine 05/10/20 documented as of this encounter
--- OUTSIDE RECORDS SUMMARY | 2024-12-07 11:25 | XMS_ITS | Encounter Summary ---
Author Organization [employer] Address [address] [place] [address] Care Team Providers Care Finance Insurance Manager Name Role Phone Martha Arriaga MD Primary Care Provid er Encounter Details Date Type Department Care Team (Late st Contact Info) Description 05/12/2004 Outpatient Historical [facility] MRI DEPT Ramon Garcia MD [address] [facility] [address] [place] [address] CONTUSION OF KNEE (Primary Dx) Social History Tobacco Use Types Packs/Day Years Used Date Smoking Tobacco: Never Assessed Comments Unknown Sex and Gender Information Value Date Recorded Sex Assigned at Not on file Legal Sex Female 3:23 AM MANAGER RECRUITMENT Gender Identity Not on file Sexual Orientation Not on file documented as of this encounter Plan of Treatment Not on file documented as of this encounter Visit Diagnoses Diagnosis Contusion of knee- Primary documented in this encounter Care Teams Finance Insurance Manager Relationship Specialty Start Date End Date Martha Arriaga MD PCP - General Internal Medicine 05/10/20 documented as of this encounter
--- OUTSIDE RECORDS SUMMARY | 2024-12-07 11:25 | XMS_ITS | Clinical Summary ---
Author Organization [facility] [employer] Address [address] [place] [address] Care Team Providers Care Mine Administrator Supervisor Name Role Phone Janny Torres MD Unavailable [phone] Noé Lew MD Primary Care Provider [phone] Source Comments [facility],non-owned Affiliates and Associated Physician Practices is amultiple site organization consisting of ambulatory clinics and hospital sitesin [place], [place], [place] and [place]. This disclosure is being madepursuant to the Care Everywhere program and may not contain all information available regarding this patient. Last updated 18.[facility] [employer] [facility] Allergies Active Allergy Reactions Criticality Noted Date [...] document. Alwaysverify current medications with the patient. vitamin D, ergocalciferol, (Drisdol) 1.25 MG (75120 UT) capsule 1 (one) capsule every 7 days 06/25/2024 Active Active Problems Problem Noted Date Diagnosed Date Right renal stone 10/05/2022 Cellulitis 01/07/2014 Leg swelling 01/06/2014 Fall from other slipping, tripping, or stumbling 11/20/2008 Family History Medical History Relation Name Comments [...] Recorded Patient Health Questionnaire-2 Score 2 09/07/2024 Comments No Sex and Gender Information Value Date Recorded Sex Assigned at Female 07/19/2022 2:59 PM SUPERVISOR VENDOR QUALITY Legal Sex Female 6:35 AM SUPERVISOR VENDOR QUALITY Gender Identity Female 07/19/2022 2:59 PM SUPERVISOR VENDOR QUALITY Sexual Orientation Straight 07/19/2022 2: 59 PM SUPERVISOR VENDOR QUALITY Last Filed Vital Signs Vital Sign Reading Time Taken Comments Blood Pressure 151/94 09/07/2024 9:55 AM SUPERVISOR VENDOR QUALITY Pulse 90 09/07/2024 9:55 AM SUPERVISOR VENDOR QUALITY Temperature 36.6 C (97.9 F) 09/07/2024 9:55 AM SUPERVISOR VENDOR QUALITY Respiratory Rate 14 05/16/2023 11:17 AM CDT Oxygen Saturation 92% 09/07/2024 9:55 AM SUPERVISOR VENDOR QUALITY Inhaled Oxygen Concentration - - Weight 150.1 kg (331 lb) 09/07/2024 9:55 AM SUPERVISOR VENDOR QUALITY Height 165.1 cm (5' 5 ) 09/07/2024 9:55 AM SUPERVISOR VENDOR QUALITY Body Mass Index 55.08 09/07/2024 9:55 AM SUPERVISOR VENDOR QUALITY Plan of Treatment Upcoming Encounters Date Type Department Care Team (Late st Contact Info) Description 05/06/2025 10:00 AM CDT Office Visit [facility] Medical [facility] Urology [address], [address] [place] [address] Janny Torres MD [address] [place] [address] Health Maintenance Due Date [...] 2014 MAMMOGRAM 05/10/2022 05/10/2020, 05/17/2017 COVID-19 VACCINE ( - season) 2024 MEDICARE AWV CALENDAR YEAR 2024 [...] this topic Medical Devices Implanted Type Area Roving Sizer Device Identifier Shelf Expiration Date Model / Serial / Lot Stent Uret 6fr 22-30cm Pgtl Crv Tpr Tip Implanted:Qty: 1 on 10/05/2022 by Janny Torres MD at [facility] Right: Ureter [employer] K[employer]ed 06/24/2025 [id number] / / [id number] Procedures Procedure Name Priority Date/Time Associated Diagnosis Comments BASIC METABOLIC PANEL (CALCIUM TOTAL) TEQUILA 05/16/2023 8:31 AM CDT Right renal stone from Last 3 Months or Most Recently Relevant to Health Maintenance Results * (ABNORMAL) BASIC METABOLIC PANEL (CALCIUM TOTAL) (05/16/2023 8:31 AM CDT) Glucose 107(H) 70 - 105 mg/dL 05/16/2023 8:55 AM CDT [facility] Sodium 141 136 - 145 mmol/L 05/16/2023 8:55 AM CDT [facility] Potassium 4.0 3.5 - 5.1 mmol/L 05/16/2023 8:55 AM CDT [facility] Chloride 102 98 - 107 mmol/L 05/16/2023 8:55 AM CDT [facility] CO2 29 22 - 29 mmol/L 05/16/2023 8:55 AM CDT [facility] Calcium 9.4 8.4 - 10.4 mg/dL 05/16/2023 8:55 AM CDT [facility] Anion Gap 10 6 - 16 mmol/L 05/16/2023 8:55 AM CDT [facility] BUN 20 7 - 26 mg/dL 05/16/2023 8:55 AM CDT [facility] Creatinine 1.37(H) 0.57 - 1.11 mg/dL 05/16/2023 8:55 AM CDT [facility] eGFR by CKD-EPI 42(L) >=90 mL/min/1.7 3 m2 05/16/2023 8:55 AM CDT [facility] Blood BLOOD SPECIMEN / Unknown Venipuncture / Unknown 05/16/2023 8:31 AM CDT 05/16/2023 8:38 AM CDT Chan Sarkar MD LAB - CHEMISTRY ORDERABLES F inal Result [facility] [address] [id number] from Last 3 Months or Most Recently Relevant to Health Maintenance Insurance MEDICAID - [place] [facility] Advance Directives * Full Code (Latest Code Status on File) Date Activated Date Inactivated Comments 10/05/2022 2:55 PM 10/06/2022 3:16 PM * Full Code Date Activated Date Inactivated Comments 01/06/2014 10:09 PM 01/10/2014 2:39 PM Care Teams Mine Administrator Supervisor Relationship Specialty Start Date End Date Noé Lew MD [address] [place] [phone] PCP - General Internal Medicine 07/04/24 Janny Torres MD [address] [place] [id number] Physician Urology 05/07/24
--- OUTSIDE RECORDS SUMMARY | 2024-12-07 11:25 | XMS_ITS | Encounter Summary ---
Author Organization [facility] Address [address] [place] [address] Care Team Providers Care Residential Support Worker Name Role Phone Martha Arriaga MD Primary Care Provid er Encounter Details Date Type Department Care Team (Late st Contact Info) Description 01/04/1999 Outpatient Historical [facility] Internal Medicine Medical [place] [facility] [address] [place] [phone] Cheikh Tsang MD [address] [facility] [address] [place], [place] [id number] Social History Tobacco Use Types Packs/Day Years Used Date Smoking Tobacco: Never Assessed Comments Unknown Sex and Gender Information Value Date Recorded Sex Assigned at Not on file Legal Sex Female 3:23 AM TURNER SPLITTER MACHINE OPERATOR Gender Identity Not on file Sexual Orientation Not on file documented as of this encounter Plan of Treatment Not on file documented as of this encounter Visit Diagnoses Not on filedocumented in this encounter Care Teams Residential Support Worker Relationship Specialty Start Date End Date Martha Arriaga MD PCP - General Internal Medicine 05/10/20 documented as of this encounter
--- OUTSIDE RECORDS SUMMARY | 2024-12-07 11:25 | XMS_ITS | Encounter Summary ---
Author Organization [employer] Address [address] [place] [address] Care Team Providers Care Health Care Marketing Specialist Name Role Phone Martha Arriaga MD [...] file Legal Sex Female 3:23 AM GLASS UNLOADING EQUIPMENT TENDER Gender Identity Not on file Sexual Orientation Not on file documented as of this encounter Plan of Treatment Not on file documented as of this encounter Visit Diagnoses Diagnosis Pain in limb- Primary documented in this encounter Care Teams Health Care Marketing Specialist Relationship Specialty Start Date End Date Martha Arriaga MD PCP - General Internal Medicine 05/10/20 documented as of this encounter
--- OUTSIDE RECORDS SUMMARY | 2024-12-07 11:25 | XMS_ITS | Encounter Summary ---
Author Organization [facility] Address [address] [place] [address] Care Team Providers Care Wind Turbine Mechanical Engineer Name Role Phone Martha Arriaga MD Primary Care Provid er Encounter Details Date Type Department Care Team (Latest Contact Info) Description 07/25/2004 Outpatient Historical [facility] - [facility] [address] [place] [address] Luis Carlos Saldaña OPEN WOUND KNEE/LEG-COMPL (Primary Dx) Social History Tobacco Use Types Packs/Day Years Used Date Smoking Tobacco: Never Assessed Comments Unknown Sex and Gender Information Value Date Recorded Sex Assigned at Not on file Legal Sex Female 3:23 AM TEST TECHNICIAN Gender Identity Not on file Sexual Orientation Not on file documented as of this encounter Plan of Treatment Not on file documented as of this encounter Visit Diagnoses Diagnosis Open wound of knee, leg (except thigh), and ankle, complicated- Primary documented in this encounter Care Teams Wind Turbine Mechanical Engineer Relationship Specialty Start Date End Date Martha Arriaga MD PCP - General Internal Medicine 05/10/20 documented as of this encounter
--- OUTSIDE RECORDS SUMMARY | 2024-12-07 11:25 | XMS_ITS | Encounter Summary ---
Author Organization [facility] Address [address] [place] [address] Care Team Providers Care Converting Technician Name Role Phone Martha Arriaga MD Primary Care Provid er Encounter Details Date Type Department Care Team (Latest Contact Info) Description 06/09/2004 Outpatient Historical [facility] [address] [place] [address] Luis Carlos Saldaña OPEN WOUND KNEE/LEG-COMPL (Primary Dx) Social History Tobacco Use Types Packs/Day Years Used Date Smoking Tobacco: Never Assessed Comments Unknown Sex and Gender Information Value Date Recorded Sex Assigned at Not on file Legal Sex Female 3:23 AM TRANSIT PLANNING DIRECTOR Gender Identity Not on file Sexual Orientation Not on file documented as of this encounter Plan of Treatment Not on file documented as of this encounter Visit Diagnoses Diagnosis Open wound of knee, leg (except thigh), and ankle, complicated- Primary documented in this encounter Care Teams Converting Technician Relationship Specialty Start Date End Date Martha Arriaga MD PCP - General Internal Medicine 05/10/20 documented as of this encounter
--- OUTSIDE RECORDS SUMMARY | 2024-12-07 11:25 | XMS_ITS | Encounter Summary ---
Author Organization [email or web address] Address [address] [place] [address] Care Team Providers Care Wireless Consultant Name Role Phone Martha Arriaga MD Primary Care Provid er Encounter Details Date Type Department Care Team (Latest Contact Info) Description 05/04/1999 Outpatient Historical [facility],NON-PATIENT Baldev Tolbert MD [address] [facility] [address] [place] [phone] Screening for malignant neoplasm of the cervix (Primary Dx) Social History Tobacco Use Types Packs/Day Years Used Date Smoking Tobacco: Never Assessed Comments Unknown Sex and Gender Information Value Date Recorded Sex Assigned at Not on file Legal Sex Female 3:23 AM CITRUS FRUIT COLORER Gender Identity Not on file Sexual Orientation Not on file documented as of this encounter Plan of Treatment Not on file documented as of this encounter Visit Diagnoses Diagnosis Screening for malignant neoplasm of the cervix- Primary documented in this encounter Care Teams Wireless Consultant Relationship Specialty Start Date End Date Martha Arriaga MD PCP - General Internal Medicine 05/10/20 documented as of this encounter
--- OUTSIDE RECORDS SUMMARY | 2024-12-07 11:25 | XMS_ITS | Encounter Summary ---
Author Organization [facility] Address [address] [place] [address] Care Team Providers Care Clinic Charge Nurse Name Role Phone Martha Arriaga MD Primary Care Provid er Encounter Details Date Type Department Care Team (Late st Contact Info) Description 06/09/2004 Outpatient Historical [facility] - [facility] [address] [place] [address] [place] [address] [place] [address] Social History Tobacco Use Types Packs/Day Years Used Date Smoking Tobacco: Never Assessed Comments Unknown Sex and Gender Information Value Date Recorded Sex Assigned at Not on file Legal Sex Female 3:23 AM DIP LUBE OPERATOR Gender Identity Not on file Sexual Orientation Not on file documented as of this encounter Plan of Treatment Not on file documented as of this encounter Visit Diagnoses Not on filedocumented in this encounter Care Teams Clinic Charge Nurse Relationship Specialty Start Date End Date Martha Arriaga MD PCP - General Internal Medicine 05/10/20 documented as of this encounter
--- OUTSIDE RECORDS SUMMARY | 2024-12-07 11:26 | XMS_ITS | Encounter Summary ---
Author Organization [facility] Address [address] [place] [address] Care Team Providers Care Hot Knife Foxing Cutter Name Role Phone Martha Arriaga MD Primary Care Provid er Encounter Details Date Type Department Care Team (Late st Contact Info) Description 06/16/2004 Outpatient Historical [facility] Trauma and General Surgery [address] [id number] [place] [address] [place] [address] Social History Tobacco Use Types Packs/Day Years Used Date Smoking Tobacco: Never Assessed Comments Unknown Sex and Gender Information Value Date Recorded Sex Assigned at Not on file Legal Sex Female 3:23 AM PRODUCT TESTER FIBERGLASS Gender Identity Not on file Sexual Orientation Not on file documented as of this encounter Plan of Treatment Not on file documented as of this encounter Visit Diagnoses Not on filedocumented in this encounter Care Teams Hot Knife Foxing Cutter Relationship Specialty Start Date End Date Martha Arriaga MD PCP - General Internal Medicine 05/10/20 documented as of this encounter
--- OUTSIDE RECORDS SUMMARY | 2024-12-07 11:26 | XMS_ITS | Encounter Summary ---
Author Organization [facility] Address [address] [place] [address] Care Team Providers Care Horse Racing Manager Name Role Phone Martha Arriaga MD Primary Care Provid er Encounter Details Date Type Department Care Team (Late st Contact Info) Description 06/16/2004 Outpatient Historical [facility] [address] [place] [address] Luis Berkowitz MD NO ADDRESS ON FILE Social History Tobacco Use Types Packs/Day Years Used Date Smoking Tobacco: Never Assessed Comments Unknown Sex and Gender Information Value Date Recorded Sex Assigned at Not on file Legal Sex Female 3:23 AM ADMISSIONS GATE ATTENDANT Gender Identity Not on file Sexual Orientation Not on file documented as of this encounter Plan of Treatment Not on file documented as of this encounter Visit Diagnoses Not on filedocumented in this encounter Care Teams Horse Racing Manager Relationship Specialty Start Date End Date Martha Arriaga MD PCP - General Internal Medicine 05/10/20 documented as of this encounter
--- OUTSIDE RECORDS SUMMARY | 2024-12-07 11:26 | XMS_ITS | Clinical Summary ---
Author Organization [facility] Address [address] [place] [address] Phone Care Team Providers Care Bingo Cashier Name Role Phone Noé Lew MD Primary Care Provider [phone] Allergies Active Allergy Reactions Criticality Noted Date Comments Codeine Anaphylaxis High 02/18/2003 Erythromycin Rash Medium 02/18/2003 Iodine Unknown 07/03/2022 Latex Rash Medium 06/17/2009 Contact; bandaids and condoms Lavender Oil Shortness of Breath High 07/03/2022 Warfarin Rash High 09/23/2008 Medications ergocalciferol (VITAMIN D) 06656 UNIT Capsule TAKE 1 CAPSULE WEEKLY 06/25/2024 Active Active Problems Problem Noted Date Diagnosed Date Factor V Leiden 09/02/2024 Encounters Date Type Department Care Team Description 11/12/2024 Patient Outreach [facility] [address] [place] [address] Navigator, Digital Health Social Concerns 11/03/2024 Transcribe Orders [facility] [address] [place] [address] Noé Lew MD Other abnormal and inconclusive findings on diagnostic imaging of breast (Primary Dx) 09/19/2024 Travel 09/09/2024 Travel 09/08/2024 Travel from Last 3 Months Family History [...] on file 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 Gender Identity Not on file Sexual Orientation Not on file Last Filed Vital Signs Vital Sign Reading Time Taken Comments Blood Pressure 156/65 09/02/2024 2:48 PM SEWING TEACHER Pulse 77 09/02/2024 2:48 PM SEWING TEACHER Temperature 36.7 C (98.1 F) 09/02/2024 2:48 PM SEWING TEACHER Respiratory Rate 18 09/02/2024 2:48 PM SEWING TEACHER Oxygen Saturation 97% 09/02/2024 2:48 PM SEWING TEACHER Inhaled Oxygen Concentration - - Weight 148.1 kg (326 lb 9.6 oz) 09/02/2024 2:48 PM SEWING TEACHER Height 165.1 cm (5' 5 ) 09/02/2024 2:48 PM SEWING TEACHER Body Mass Index 54.35 09/02/2024 2:48 PM SEWING TEACHER Plan of Treatment Health Maintenance Due Date [...] on patient's age to complete this topic Insurance MEDICARE C [employer] [place] Care Teams Bingo Cashier Relationship Specialty Start Date End Date Noé Lew MD [address] [place] [address] PCP - General Internal Medicine 07/01/24
== END 2024-12-07 10:07 | disposition home or self-care (01) ==
PROVIDERS: PCP Internal Medicine; Visit Provider Internal Medicine
DX: R92.8 Other abnormal and inconclusive findings on diagnostic imaging of breast (principal)
CPT/HCPCS: 19081; 76642; 77065; 88305